=== PATIENT | male | born 1940 | race Caucasian/White ===

== ENCOUNTER 2017-09-21 10:14 | Inpatient (IN) | payer MEDICARE, BC, SELFPAY ==
[2017-09-21] VITALS (13 sets, daily range): BP systolic 107–135; BP diastolic 59–68; PULSE 70–145; RESP 18–22; TEMP 36.3–38.1; O2SAT 91–95; BMI 29.2; BMI 28.5; BMI 28.6
--- NOTE | 2017-09-21 10:28 | ED.VISSUMM ---
- ER Visit Summary Date of Service: 09/21/17 Chief Complaint: Frequency, dysuria with fever and chills History of Present Illness: The patient is a 77 M who presents because of fever document 101.9 with shaking chills this morning. He did take 2 Advil this morning. He has had frequency and dysuria. He now reports hematuria. He had similar presentation in October 2016 and was admitted for 3 days for severe sepsis. He denies headache, visual disturbance, ocular symptoms or auditory symptoms. He denies light sensitivity or stiffness of his neck. He denies any cardiopulmonary symptoms. He denies nausea vomiting diarrhea. He denies any back pain. He denies any skin lesions. Past medical history of hypertension, benign prostatic hypertrophy, and atrial fib. Per old records he was admitted for severe sepsis secondary to UTI October 2016. Physical Examination: Temperature is 97.4. Respiratory 22. He is afebrile presently. HEENT exam is unremarkable. Heart is regular without murmur, gallop or rub. S1 and S2 are normal. Lungs are clear to auscultation with good movement of air bilaterally. Abdomen soft nontender bowel sounds present no. Is no discomfort of the pubic region. No CVA tenderness noted. There is no skin lesions noted. Neuro exam is nonfocal. Test Results: Reveals a sinus rhythm rate of 74 without ectopy. White count is 20.5 thousand with 88 segs no bands. Electro panel is unremarkable. Glucose is elevated 116. Urine is positive for leukoesterase, nitrites and blood. Micro is pending. Lactate is 2.6. Emergency Department Course and Treatment: Since patient had a document temperature 101.9 with Rigors and is tachypnic will obtain urine culture, blood cultures lactate and will treat with Rocephin. Treatment Plan: Since patient meets severe sepsis criteria once the micro urine results are available we will contact hospitalist for admission. Disposition: Admit PCU stepdown Impression: 1. Severe sepsis 2. UTI 3. History of hypertension 4. History of atrial fibrillation 5. History of benign prostatic hypertrophy This note was generated with AnyPresenceation software. It may contain incorrect words, spelling, and punctuation that were not noted in review of the chart prior to signing ED Disposition - Plan for ED Patient: Chief Complaint: Complaint Referrals: Devyn Montalvo [Primary Care Provider] -
[2017-09-21 10:51] LABS: Absolute Lymphocyte Count 0.71 X10^3/ul (0.83-4.51); Basophil# 0.03 X10^3/uL; Basophil% 0.1 % (0-1); Eosinophil# 0.01 X10^3/uL; Hematocrit 45.8 % (40-54); Hemoglobin 15.8 g/dl (13.0-16.5); Lymphocyte # 0.71 X10^3/ul (4.0); Lymphocyte % 3.5 % (19-41); Mean Corp Hgb Conc 34.5 g/gl (32-36); Mean Corpuscular Hgb 32.7 pg (27.0-32.0); Mean Corpuscular Volume 94.8 fL (80-94); Mean Platelet Vol. 12.4 fl (6.2-12.0); Monocyte% 7.8 % (0-10); Neutrophil # 18.04 X10^3/uL (2.7-7.7); Neutrophil % 88.1 % (47-70); Platelet Count 208 K/mm3 (150-450); Red Blood Count 4.83 M/mm3 (4.6-6.2); White Blood Count 20.5 K/mm3 (4.4-11.0)
[2017-09-21 10:56] LABS: POSITIVE DIFFERENTIAL YES
[2017-09-21 10:57] LABS: Differential Indicated SCAN CRITERIA MET; POSITIVE COUNT NO; POSITIVE MORPHOLOGY NO
[2017-09-21 11:02] LABS: Bacteria 0 SEEN /hpf (None Seen); Mucous, Urine 0 SEEN /hpf (<or=2+); Red Blood Cells-Urine 0 SEEN /hpf (0-5); Squamous Epithelial Cells - UA 0 SEEN /hpf (0-5)
[2017-09-21 11:02] LABS: Anion Gap 11 (5-15); BUN 17 mg/dL (7-18); Calcium,Total 8.7 mg/dL (8.5-10.1); Chloride 107 mmol/L (98-107); EST Glomerular Filtration Rate 88 mL/min (>60); Est Glom Filt Rate - Afr Amer 106 mL/min (>60); Estimated Creatinine Clearance 84.76 ml/min; Glucose 116 mg/dL (74-106); Potassium 3.5 mmol/L (3.5-5.1); Sodium Level 141 mmol/L (136-145)
[2017-09-21 11:03] LABS: Color, Urine Yellow (Yellow); Glucose, Dipstick 50 mg/dl (Normal); Ketone-Dipstick 5 mg/dl (Negative); Leukocyte Esterase-Dipstick 500 /ul (Negative); Nitrite-Dipstick Positive (Negative); Occult Blood-Urine 250 /ul (Negative); Protein-Dipstick 100 mg/dl (Negative); Urine Clarity Cloudy (Clear); Urine Urobilinogen 1 mg/dl (Normal)
[2017-09-21 11:10] LABS: Urine Bilirubin Dipstick 1 mg/dL (Negative)
[2017-09-21 11:11] LABS: Lactic Acid 2.6 mmol/L (0.4-2.0)
--- NOTE | 2017-09-21 11:11 | NURSING ---
LACTIC 2.6 AWARE
[2017-09-21 11:13] LABS: Red Cell Morphology NORM C+C NORMAL (NORM C&C)
[2017-09-21 11:14] LABS: White Blood Cells >100 SEEN /hpf (0-5)
--- NOTE | 2017-09-21 12:52 | RAD_ITS ---
STUDY: X-RAY CHEST REASON FOR EXAM: Male, 77 years old. Fever. Urinary tract infection. Sepsis. Dizziness. TECHNIQUE: Single AP upright portable chest view. COMPARISON: Chest 10/22/2016. FINDINGS: Lungs appear well expanded and clear active focal pulmonary consolidation with air bronchograms, large pleural effusion or abnormally dilated pulmonary vascularity. No large gross pneumothorax identified. Minimal opacification left CP angle is seen suggesting minimal atelectasis/scarring but bilateral sharp CP angles are noted. Normal size heart. No change mildly prominent mediastinum and franklyn. Normal visualized pulmonary arteries. Moderate calcified aortic knob seen with mild tortuous descending thoracic aorta. No acute osseous process identified. Moderate left glenohumeral and acromioclavicular degenerative changes noted. There is no demonstrated abnormality of the visualized soft tissue structures of the upper abdomen. No subdiaphragmatic free peritoneal air identified grossly. Numerous EKG wires overlie chest partially scarring underlying details. RAD/Chest 1 View (Portable) IMPRESSION: No active cardiopulmonary disease identified. Mild atelectasis/scarring involving left CP angle as described. Clinical correlation recommended. Electronically Signed: Michael Yeboah, at 14:29 EDT Tel , Service support ,
--- NOTE | 2017-09-21 13:55 | PCM.HP.STD ---
Problem List (1) Severe sepsis Status: Acute (2) Paroxysmal atrial fibrillation Status: Chronic (3) Benign essential HTN Status: Chronic (4) UTI (urinary tract infection) Status: Acute Qualifiers: Urinary tract infection type: acute cystitis Hematuria presence: with hematuria Qualified Code(s): N30.01 - Acute cystitis with hematuria History of Present Illness Date of Admission: 09/21/17 Chief Complaint: Fever and chills. Patient is a 77 years old male, presents with acute onset of fever and chills. He also had some urinary frequency, but denied of any dysuria or abdominal discomfort. He had similar episodes of sepsis associated with UTI three times in the past. Temp was 101.9 at home, took Advil for fever. His heart rate was normal, but had tachypnea. Oxygen saturation was normal. WBC was 20.5, and lactic acid was 2.6. UA was positive for nitrite and leukocyte. Past Medical History Past Medical History (Chronic Problems): Chronic Problems (Last Updated 09/21/17 @ 09:19 by Leeanna Arenas) Atrioventricular block, first degree (Chronic) Hypertension (Chronic) Paroxysmal atrial fibrillation (Chronic) Benign essential HTN (Chronic) BPH (benign prostatic hyperplasia) (Chronic) Allergies No Known Allergies Allergy (Verified 09/21/17 10:16) Home Medications: Ambulatory Orders Medication Instructions Recorded Aspirin E.C. [Ecotrin] 81 mg PO DAILY@0800 04/29/15 Bisoprolol Fumarate/Hctz 1 tab PO DAILY 04/29/15 [Bisoprolol-Hctz 5-6.25 mg Tab] Dutasteride 0.5 mg PO DAILY 09/21/17 Surgical History: - - T+A. Psychiatric History: No pertinent psych hx Smoking Status: Former smoker - *Family History Maternal History Items: Heart Disease - Mother w/ CAD, [place] 65 y/o. Paternal History Items: Cancer - Father w/ colon CA, 70s. Review of Systems Comment: ROS: In general: Fever and chills started this morning. HEENT: Unremarkable. Patient denied of any dizziness, chronic headache, blurred vision, double vision, dry mouth, or nasal congestion. CV/respiratory: There is no exertional shortness of breath, chest pain, palpitation, wheezing, cough, claudication, cold feet, or peripheral edema. GI: Patient denied any abdominal pain, nausea, vomiting, diarrhea, constipation, melena, or hematochezia. : Mild urinary frequency. Neurology: Unremarkable. There is no history of seizure as an adult. Psychological: Unremarkable. ?. Endocrine: Unremarkable. Musculoskeletal: Unremarkable. VTE Information - Inpt Only VTE Present on Admission: No VTE Mechan Device Prophylaxis: SCD's VTE Pharm Prophylaxis ordered?: Yes Subjective: In general, patient is a well-nourished and developed adult. HEENT: Head is atraumatic, and normocephalic. Pupils are equal, round, and reactive to light and accommodations. Neck is supple. There is no lymphadenopathy, or thyromegaly. Oral mucosa is pink, and moist. There are no lesions. Heart: Auscultation is normal with regular rhythm and rate. There is no extra heart sounds, or murmurs. S1 and S2 are present. Point of maximal impulse is not displaced. Lungs: Lungs are clear to auscultation bilaterally. There is no wheezing, or crackles. Abdomen: Abdominal wall is non-tender, and non-distended. There is no palpable mass or organomegaly. Normoactive bowel sounds are present. Extremities: There is no cyanosis or clubbing. Peripheral pulses are palpable. There is no edema. Skin: There are no any skin discoloration or lesions. Neurological: CN II - XII are intact. Sensory and motor functions are grossly normal with no obvious deficit. Cerebellar functions are within normal range. Gait was not tested. - Physical Exam Vital Signs Temp Pulse Resp BP Pulse Ox 98.5 F 94 18 107/61 93 09/21/17 13:04 09/21/17 13:38 09/21/17 13:04 09/21/17 13:05 09/21/17 13:04 Oxygen Delivery Method Room Air Weight: 228 lb 9.91 oz Body Mass Index (BMI) 28.5 Assessment/Plan Patient is a 77 years old male, presents with acute onset of fever and chills. He also had some urinary frequency, but denied of any dysuria or abdominal discomfort. He had similar episodes of sepsis associated with UTI three times in the past. Temp was 101.9 at home, took Advil for fever. His heart rate was normal, but had tachypnea. Oxygen saturation was normal. WBC was 20.5, and lactic acid was 2.6. UA was positive for nitrite and leukocyte. #1 Severe sepsis with underling acute cystitis. He has history of BPH, but s/p TURP. He has been doing well since then with no evidence of urinary retention. IVF D5 0.45NS at 150 ml/hr for fluid resuscitation. Antibiotics ceftriaxone, pending cultures. #2 Paroxysmal atrial fibrillation. Continue current medications. Telemetry monitoring. He is on aspirin only for stroke prophylaxis. #3 Essential hypertension. Continue home medications. #4 History of BPH. Continue dutasteride. VTE prophylaxis: Lovenox SQ. GI prophylaxis: ppi po. Patient is full code. Disposition: Home in 2 to 3 days. Code Visit Inpatient E&M: 02206 Init Hosp L3
[2017-09-21] MEDS: Dext 5%-0.45% NS 1,000 ML 150 ML IV ×2 (14:04→20:19)
--- NOTE | 2017-09-21 14:06 | HP.PCM_ITS ---
Problem List (1) Severe sepsis Status: Acute (2) Paroxysmal atrial fibrillation Status: Chronic (3) Benign essential HTN Status: Chronic (4) UTI (urinary tract infection) Status: Acute Qualifiers: Urinary tract infection type: acute cystitis Hematuria presence: with hematuria Qualified Code(s): N30.01 - Acute cystitis with hematuria History of Present Illness Date of Admission: 09/21/17 Chief Complaint: Fever and chills. Patient is a 77 years old male, presents with acute onset of fever and chills. He also had some urinary frequency, but denied of any dysuria or abdominal discomfort. He had similar episodes of sepsis associated with UTI three times in the past. Temp was 101.9 at home, took Advil for fever. His heart rate was normal, but had tachypnea. Oxygen saturation was normal. WBC was 20.5, and lactic acid was 2.6. UA was positive for nitrite and leukocyte. Past Medical History Past Medical History (Chronic Problems): Chronic Problems (Last Updated 09/21/17 @ 09:19 by Leeanna rAenas) Atrioventricular block, first degree (Chronic) Hypertension (Chronic) Paroxysmal atrial fibrillation (Chronic) Benign essential HTN (Chronic) BPH (benign prostatic hyperplasia) (Chronic) Allergies No Known Allergies Allergy (Verified 09/21/17 10:16) Home Medications: Ambulatory Orders Medication Instructions Recorded Aspirin E.C. [Ecotrin] 81 mg PO DAILY@0800 04/29/15 Bisoprolol Fumarate/Hctz 1 tab PO DAILY 04/29/15 [Bisoprolol-Hctz 5-6.25 mg Tab] Dutasteride 0.5 mg PO DAILY 09/21/17 Surgical History: - - T+A. Psychiatric History: No pertinent psych hx Smoking Status: Former smoker - *Family History Maternal History Items: Heart Disease - Mother w/ CAD, [place] 65 y/o. Paternal History Items: Cancer - Father w/ colon CA, 70s. Review of Systems Comment: ROS: In general: Fever and chills started this morning. HEENT: Unremarkable. Patient denied of any dizziness, chronic headache, blurred vision , double vision, dry mouth, or nasal congestion. CV/respiratory: There is no exertional shortness of breath, chest pain, palpitation, wheezing, cough, claudication, cold feet, or peripheral edema. GI: Patient denied any abdominal pain, nausea, vomiting, diarrhea, constipation, melena, or hematochezia. : Mild urinary frequency. Neurology: Unremarkable. There is no history of seizure as an adult. Psychological: Unremarkable. ?. Endocrine: Unremarkable. Musculoskeletal: Unremarkable. VTE Information - Inpt Only VTE Present on Admission: No VTE Mechan Device Prophylaxis: SCD's VTE Pharm Prophylaxis ordered?: Yes Subjective: In general, patient is a well-nourished and developed adult. HEENT: Head is atraumatic, and normocephalic. Pupils are equal, round, and reactive to light and accommodations. Neck is supple. There is no lymphadenopathy, or thyromegaly. Oral mucosa is pink, and moist. There are no lesions. Heart: Auscultation is normal with regular rhythm and rate. There is no extra heart sounds, or murmurs. S1 and S2 are present. Point of maximal impulse is not displaced. Lungs: Lungs are clear to auscultation bilaterally. There is no wheezing, or crackles. Abdomen: Abdominal wall is non-tender, and non-distended. There is no palpable mass or organomegaly. Normoactive bowel sounds are present. Extremities: There is no cyanosis or clubbing. Peripheral pulses are palpable. There is no edema. Skin: There are no any skin discoloration or lesions. Neurological: CN II - XII are intact. Sensory and motor functions are grossly normal with no obvious deficit. Cerebellar functions are within normal range. Gait was not tested. - Physical Exam Vital Signs Temp Pulse Resp BP Pulse Ox 98.5 F 94 18 107/61 93 09/21/17 13:04 09/21/17 13:38 09/21/17 13:04 09/21/17 13:05 09/21/17 13:04 Oxygen Delivery Method Room Air Weight: 228 lb 9.91 oz Body Mass Index (BMI) 28.5 Assessment/Plan Patient is a 77 years old male, presents with acute onset of fever and chills. He also had some urinary frequency, but denied of any dysuria or abdominal discomfort. He had similar episodes of sepsis associated with UTI three times in the past. Temp was 101.9 at home, took Advil for fever. His heart rate was normal, but had tachypnea. Oxygen saturation was normal. WBC was 20.5, and lactic acid was 2.6. UA was positive for nitrite and leukocyte. #1 Severe sepsis with underling acute cystitis. He has history of BPH, but s/p TURP. He has been doing well since then with no evidence of urinary retention. IVF D5 0.45NS at 150 ml/hr for fluid resuscitation. Antibiotics ceftriaxone, pending cultures. #2 Paroxysmal atrial fibrillation. Continue current medications. Telemetry monitoring. He is on aspirin only for stroke prophylaxis. #3 Essential hypertension. Continue home medications. #4 History of BPH. Continue dutasteride. VTE prophylaxis: Lovenox SQ. GI prophylaxis: ppi po. Patient is full code. Disposition: Home in 2 to 3 days. Code Visit Inpatient E&M: 96481 Init Hosp L3
[2017-09-21 14:41] LABS: Reflex Lactate? Y
[2017-09-21 15:51] LABS: Lactic Acid 3.2 mmol/L (0.4-2.0)
[2017-09-21 17:13] LABS: Magnesium 1.8 mg/dL (1.6-2.6)
[2017-09-21] MEDS: Metoprolol Tartrate 25 MG Tablet PO (22:21)
[2017-09-21] MEDS: Magnesium Sulfate 20 GM/500 ML BAG IV (22:24)
[2017-09-22] VITALS (15 sets, daily range): BP systolic 122–157; BP diastolic 61–84; PULSE 65–102; RESP 12–19; TEMP 36.7–39.3; O2SAT 93–98
[2017-09-22] MEDS: Dext 5%-0.45% NS 1,000 ML 150 ML IV ×4 (03:00→23:28)
[2017-09-22 05:56] LABS: Hematocrit 39.8 % (40-54); Hemoglobin 13.5 g/dl (13.0-16.5); Mean Corp Hgb Conc 33.9 g/gl (32-36); Mean Corpuscular Hgb 32.9 pg (27.0-32.0); Mean Corpuscular Volume 97.1 fL (80-94); Mean Platelet Vol. 12.3 fl (6.2-12.0); Platelet Count 162 K/mm3 (150-450); RBC Distribution Width CV 12.3 % (11.6-14.6); RBC Distribution Width SD 42.3 fl (35.1-43.9); White Blood Count 16.6 K/mm3 (4.4-11.0)
[2017-09-22 06:11] LABS: Scan Indicated on CBC? Y/N NO
[2017-09-22 06:28] LABS: Anion Gap 6 (5-15); BUN 12 mg/dL (7-18); BUN/Creat Ratio 13.5 RATIO (10-20); Calcium,Total 7.6 mg/dL (8.5-10.1); Chloride 106 mmol/L (98-107); Creatinine, Serum 0.89 mg/dL (0.70-1.30); EST Glomerular Filtration Rate 88 mL/min (>60); Est Glom Filt Rate - Afr Amer 107 mL/min (>60); Estimated Creatinine Clearance 85.71 ml/min; Glucose 136 mg/dL (74-106); Magnesium 4.7 mg/dL (1.6-2.6); Potassium 3.7 mmol/L (3.5-5.1); Sodium Level 137 mmol/L (136-145)
--- NOTE | 2017-09-22 08:08 | EKG12_ITS ---
Test Reason : RHYTHMN CHANGE Blood Pressure : / mmHG Vent. Rate : 070 BPM Atrial Rate : 075 BPM P-R Int : 216 ms QRS Dur : 102 ms QT Int : 394 ms P-R-T Axes : 028 -22 029 degrees QTc Int : 425 ms Sinus rhythm with 1st degree A-V block with Premature atrial complexes Otherwise normal ECG When compared with ECG of 25-OCT-2016 12:16, Premature atrial complexes are now Present ME interval has increased Confirmed by WILLY YANEZ, KISHA ([id number]), business editor CLAIRE WILLS ([id number]) on 09/25/2017 1:56:14 PM Referred By: Confirmed By:KISHA AGUILERA MD
[2017-09-22] MEDS: Acetaminophen 325 MG Tablet 650 MG PO ×2 (08:27→16:06)
[2017-09-22] MEDS: Enoxaparin 40 MG/0.4 ML Syringe SC (08:41)
[2017-09-22] MEDS: Finasteride 5 MG Tablet PO (08:41)
[2017-09-22] MEDS: Ceftriaxone 1 GM/50 ML BAG IV (08:41)
[2017-09-22] MEDS: Pantoprazole Sodium 20 MG Tablet PO (08:42)
[2017-09-22] MEDS: Metoprolol Tartrate 25 MG Tablet PO ×2 (08:42→21:28)
[2017-09-22] MEDS: Aspirin E.C. 81 MG Tablet PO (08:42)
--- NOTE | 2017-09-22 10:22 | CASEMGMT ---
LINH CM CHART REVIEW: CLIVE STRATA: 1 ADM DX: Sepsis secondary to UTI INSURANCE: [facility] A/B STATUS: IP [place]: Per physician documentation, Patient is a 77 years old male, presents after [facility], with acute onset of fever and chills. He also had some urinary frequency. He had similar episodes of sepsis associated with UTI three times in the past. Temp was 101.9 at home, took Advil for fever. His heart rate was normal, but had tachypnea. WBC was 20.5, and lactic acid was 2.6. UA was positive for nitrite and leukocyte. PMHX: 1st Degree AV Block, HTN, PAF, HTN, BPH Transition Planning/Care Coordination: Patient is established with Dr. Montalvo for primary care, and has an appnt to establish with Dr. Clay on 09/25/17 at 0900. The patient does not report or demonstrate a recent functional decline, is independent, , and drives. The patient does have prescription coverage and uses [facility] for prescription medication needs. No post-acute home-going needs are identified. Disposition Plan: Home with support of and with follow-up instructions. BJORN PattonN, RN-BC, CCM
--- NOTE | 2017-09-22 12:57 | PCM.PROGNOTE ---
Subjective: Patient is feeling better. He had RVR with a-fib during the night with underling paroxysmal afib. - Physical Exam General: Alert, Oriented x3, Cooperative, Well developed, Well nourished HEENT: Atraumatic, PERRLA, Normocephalic Oral: Moist Mucosa Neck: Supple, No JVD Lungs: Clear to auscultation, Normal air movement, No rhonchi, No wheeze, No rales Cardiovascular: Regular rate, Regular Rhythm, Normal S1, Normal S2, No murmurs, No Ectopic Activity Abdomen: Bowel Sounds Present, Soft, Non Tender, Non-Distended, No Hepato-splenomegaly Extremities: No clubbing, No cyanosis, No edema Skin: No rashes, No breakdown Musculoskeletal: No Tenderness to Palpation of Joints or Extremities Lymphatic: No Cervical, Supraclavicular, or Inguinal Adenopathy Neurological: Cranial nerves II-XII grossly intact, Neuro grossly intact Psych/Mental Status: Normal Affect Vital Signs Temp Pulse Resp BP Pulse Ox 99.0 F 65 16 127/61 H 93 09/22/17 08:35 09/22/17 11:07 09/22/17 08:35 09/22/17 08:35 09/22/17 08:35 Oxygen Delivery Method Room Air Weight: 228 lb 9.91 oz Body Mass Index (BMI) 28.5 Intake and Output for Last 24 Hours 09/20/17 09/21/17 09/22/17 23:59 23:59 23:59 Intake Total 5.4 / 5.4 2285 / 2285 Balance 5.4 / 1954.4 2285 / 2285 Laboratory Tests Past 24 Hrs 09/21/17 09/22/17 09/22/17 14:56 05:26 05:26 WBC 16.6 H RBC 4.10 L Hgb 13.5 Hct 39.8 L MCV 97.1 H MCH 32.9 H MCHC 33.9 RDW 12.3 RDW Differential 42.3 Plt Count 162 MPV 12.3 H Sodium 137 Potassium 3.7 Chloride 106 Carbon Dioxide 25.0 Anion Gap 6 BUN 12 Creatinine 0.89 Estim Creat Clear Calc 85.71 Est GFR (MDRD) Af Amer 107 Est GFR (MDRD) Non-Af 88 BUN/Creatinine Ratio 13.5 Glucose 136 H Lactic Acid 3.2 H Calcium 7.6 L Magnesium 4.7 H Diagnostic Data Chest X-Ray 09/21/17 12:52 IMPRESSION: No active cardiopulmonary disease identified. Mild atelectasis/scarring involving left CP angle as described. Clinical correlation recommended. Electronically Signed: Michael Yeboah, at 14:29 EDT Tel , Service support , Medical Necessity - Tobacco Use Smoking Status: Former smoker Assessment/Plan Patient is a 77 years old male, presents with acute onset of fever and chills. He also had some urinary frequency, but denied of any dysuria or abdominal discomfort. He had similar episodes of sepsis associated with UTI three times in the past. Temp was 101.9 at home, took Advil for fever. His heart rate was normal, but had tachypnea. Oxygen saturation was normal. WBC was 20.5, and lactic acid was 2.6. UA was positive for nitrite and leukocyte. #1 Severe sepsis with underling acute cystitis. He has history of BPH, but s/p TURP. He has been doing well since then with no evidence of urinary retention. IVF D5 0.45NS at 150 ml/hr for fluid resuscitation, discontinue on 09/22. Antibiotics ceftriaxone. Continue. Urine culture E. Coli. Sensitivity pending. #2 Paroxysmal atrial fibrillation. Continue current medications. Telemetry monitoring. He is on aspirin only for stroke prophylaxis. He had A-fib with RVR during the night, converted spontaneously. (09/22). #3 Essential hypertension. Continue home medications. #4 History of BPH. Continue dutasteride. VTE prophylaxis: Lovenox SQ. GI prophylaxis: ppi po. Patient is full code. Disposition: Home, possibly tomorrow. Code Visit Inpatient E&M: 92342 Subs Hosp L3
--- NOTE | 2017-09-22 13:07 | PN_ITS ---
Subjective: Patient is feeling better. He had RVR with a-fib during the night with underling paroxysmal afib. - Physical Exam General: Alert, Oriented x3, Cooperative, Well developed, Well nourished HEENT: Atraumatic, PERRLA, Normocephalic Oral: Moist Mucosa Neck: Supple, No JVD Lungs: Clear to auscultation, Normal air movement, No rhonchi, No wheeze, No rales Cardiovascular: Regular rate, Regular Rhythm, Normal S1, Normal S2, No murmurs, No Ectopic Activity Abdomen: Bowel Sounds Present, Soft, Non Tender, Non-Distended, No Hepato- splenomegaly Extremities: No clubbing, No cyanosis, No edema Skin: No rashes, No breakdown Musculoskeletal: No Tenderness to Palpation of Joints or Extremities Lymphatic: No Cervical, Supraclavicular, or Inguinal Adenopathy Neurological: Cranial nerves II-XII grossly intact, Neuro grossly intact Psych/Mental Status: Normal Affect Vital Signs Temp Pulse Resp BP Pulse Ox 99.0 F 65 16 127/61 H 93 09/22/17 08:35 09/22/17 11:07 09/22/17 08:35 09/22/17 08:35 09/22/17 08:35 Oxygen Delivery Method Room Air Weight: 228 lb 9.91 oz Body Mass Index (BMI) 28.5 Intake and Output for Last 24 Hours 09/20/17 09/21/17 09/22/17 23:59 23:59 23:59 Intake Total 5.4 / 5.4 2285 / 2285 Balance 5.4 / 1954.4 2285 / 2285 Laboratory Tests Past 24 Hrs 09/21/17 09/22/17 09/22/17 14:56 05:26 05:26 WBC 16.6 H RBC 4.10 L Hgb 13.5 Hct 39.8 L MCV 97.1 H MCH 32.9 H MCHC 33.9 RDW 12.3 RDW Differential 42.3 Plt Count 162 MPV 12.3 H Sodium 137 Potassium 3.7 Chloride 106 Carbon Dioxide 25.0 Anion Gap 6 BUN 12 Creatinine 0.89 Estim Creat Clear Calc 85.71 Est GFR (MDRD) Af Amer 107 Est GFR (MDRD) Non-Af 88 BUN/Creatinine Ratio 13.5 Glucose 136 H Lactic Acid 3.2 H Calcium 7.6 L Magnesium 4.7 H Diagnostic Data Chest X-Ray 09/21/17 12:52 IMPRESSION: No active cardiopulmonary disease identified. Mild atelectasis/scarring involving left CP angle as described. Clinical correlation recommended. Electronically Signed: Michael Yeboah, at 14:29 EDT Tel , Service support , Medical Necessity - Tobacco Use Smoking Status: Former smoker Assessment/Plan Patient is a 77 years old male, presents with acute onset of fever and chills. He also had some urinary frequency, but denied of any dysuria or abdominal discomfort. He had similar episodes of sepsis associated with UTI three times in the past. Temp was 101.9 at home, took Advil for fever. His heart rate was normal, but had tachypnea. Oxygen saturation was normal. WBC was 20.5, and lactic acid was 2.6. UA was positive for nitrite and leukocyte. #1 Severe sepsis with underling acute cystitis. He has history of BPH, but s/p TURP. He has been doing well since then with no evidence of urinary retention. IVF D5 0.45NS at 150 ml/hr for fluid resuscitation, discontinue on 09/22. Antibiotics ceftriaxone. Continue. Urine culture E. Coli. Sensitivity pending. #2 Paroxysmal atrial fibrillation. Continue current medications. Telemetry monitoring. He is on aspirin only for stroke prophylaxis. He had A-fib with RVR during the night, converted spontaneously. (09/22). #3 Essential hypertension. Continue home medications. #4 History of BPH. Continue dutasteride. VTE prophylaxis: Lovenox SQ. GI prophylaxis: ppi po. Patient is full code. Disposition: Home, possibly tomorrow. Code Visit Inpatient E&M: 85419 Subs Hosp L3
[2017-09-22 14:12] LABS: Pathologist Review Reviewed
[2017-09-22 17:17] LABS: Lactic Acid 1.5 mmol/L (0.4-2.0)
[2017-09-22] MEDS: Ibuprofen 600 MG Tablet PO (17:57)
[2017-09-23] VITALS (7 sets, daily range): BP systolic 139–144; BP diastolic 78–92; PULSE 77–98; RESP 18; TEMP 37.2–37.3; O2SAT 94–98
[2017-09-23] MEDS: Dext 5%-0.45% NS 1,000 ML 150 ML IV (05:42)
[2017-09-23 06:09] LABS: Hematocrit 42.4 % (40-54); Hemoglobin 14.1 g/dl (13.0-16.5); Mean Corp Hgb Conc 33.3 g/gl (32-36); Mean Corpuscular Hgb 32.6 pg (27.0-32.0); Mean Corpuscular Volume 97.9 fL (80-94); Mean Platelet Vol. 12.8 fl (6.2-12.0); Platelet Count 147 K/mm3 (150-450); RBC Distribution Width CV 12.7 % (11.6-14.6); RBC Distribution Width SD 44.8 fl (35.1-43.9); Red Blood Count 4.33 M/mm3 (4.6-6.2); Scan Indicated on CBC? Y/N NO; White Blood Count 5.4 K/mm3 (4.4-11.0)
[2017-09-23 06:25] LABS: BUN 8 mg/dL (7-18); EST Glomerular Filtration Rate 100 mL/min (>60); Estimated Creatinine Clearance 95.36 ml/min; Glucose 120 mg/dL (74-106)
[2017-09-23 06:26] LABS: Anion Gap 9 (5-15); Calcium,Total 7.7 mg/dL (8.5-10.1); Chloride 109 mmol/L (98-107); Est Glom Filt Rate - Afr Amer 121 mL/min (>60); Potassium 3.9 mmol/L (3.5-5.1); Sodium Level 141 mmol/L (136-145)
--- NOTE | 2017-09-23 07:18 | EKG12_ITS ---
Test Reason : A-FIB Blood Pressure : / mmHG Vent. Rate : 083 BPM Atrial Rate : 086 BPM P-R Int : 000 ms QRS Dur : 102 ms QT Int : 374 ms P-R-T Axes : 000 -24 014 degrees QTc Int : 439 ms Atrial fibrillation Abnormal ECG When compared with ECG of 22-SEP-2017 04:09, MANUAL COMPARISON REQUIRED, DATA IS UNCONFIRMED Confirmed by WILLY YANEZ, KISHA ([id number]), scientific editor CLAIRE WILLS ([id number]) on 09/26/2017 1:38:55 PM Referred By: HOANG Confirmed By:KISHA AGUILERA MD
[2017-09-23] MEDS: Aspirin E.C. 81 MG Tablet PO (09:02)
[2017-09-23] MEDS: Ceftriaxone 1 GM/50 ML BAG IV (09:02)
[2017-09-23] MEDS: Pantoprazole Sodium 20 MG Tablet PO (09:02)
[2017-09-23] MEDS: Metoprolol Tartrate 25 MG Tablet PO (09:02)
[2017-09-23] MEDS: Enoxaparin 40 MG/0.4 ML Syringe SC (09:02)
[2017-09-23] MEDS: Finasteride 5 MG Tablet PO (09:03)
--- NOTE | 2017-09-23 10:55 | PCM.DC ---
You will use the following diet at home:: Cardiac Your food should be the consistency of: Regular Discharge Activity: Return to Normal Activity Weight Bearing Status: Weight bearing as tolerated Call your doctor if you observe: Fever of 101 or Higher, Shortness of breath, Dizziness, Fainting spells, Chest pain, Increased palpitations (irregular heartbeat), Uncontrolled pain Allergies/Adverse Reactions: Allergies No Known Allergies Allergy (Verified 09/21/17 10:16) Medications to take at Discharge Aspirin E.C. [Ecotrin] 81 mg PO DAILY@0800 04/29/15 Bisoprolol Fumarate/Hctz [Bisoprolol-Hctz 5-6.25 mg Tab] 1 tab PO DAILY 04/29/15 Dutasteride 0.5 mg PO DAILY 09/21/17 Levofloxacin [Levaquin] 750 mg PO DAILY #5 tab 09/23/17 The following prescriptions were given: Levofloxacin [Levaquin] 750 mg PO DAILY #5 tab Primary Care Physician: Devyn Montalvo [Primary Care Provider] - Please follow up with your Primary Care Physician in: 1 WEEK.
--- NOTE | 2017-09-23 14:35 | PCM.DC.SUM ---
Discharge Date and Diagnosis Date of Admission: 09/21/17 Date of Discharge: 09/23/17 - Primary Discharge Diagnosis #1 E. coli acute cystitis. #2 severe sepsis. - Secondary Discharge Diagnosis Chronic Problems (Last Updated 09/21/17 @ 09:19 by Leeanna Arenas) Atrioventricular block, first degree (Chronic) Hypertension (Chronic) Paroxysmal atrial fibrillation (Chronic) Benign essential HTN (Chronic) BPH (benign prostatic hyperplasia) (Chronic) Hospital Course and Treatment Imaging Results: Clinical Impression(s) from Imaging Studies Chest X-Ray 09/21/17 12:52 IMPRESSION: No active cardiopulmonary disease identified. Mild atelectasis/scarring involving left CP angle as described. Clinical correlation recommended. Electronically Signed: Michael Yeboah, at 14:29 EDT Tel , Service support , Operations: None Procedures: None Summary of Care Provided: Patient seen and examined on the day of discharge and appeared to be stable to be discharged home. He denies any complaints today, asymptomatic. Vital signs are stable. - Physical Exam General: Alert, Oriented x3, Cooperative, No apparent distress. HEENT: Atraumatic, PERRLA, EOMI. Neck: Supple, No JVD, Negative Carotid Bruits, Trachea Midline, Thyroid Normal. Lungs: Clear to auscultation, Normal air movement, No rhonchi, No wheeze, No rales. Cardiovascular: Regular rate, Regular Rhythm, Normal S1, Normal S2, PMI Normal. Abdomen: Bowel Sounds Present, Soft, Non Tender, Non-Distended, No Hepato-splenomegaly. Extremities: No clubbing, No cyanosis, No edema Skin: No rashes, No breakdown Neurological: Neuro grossly intact Vital Signs are stable. Hospital course: The patient is a 77 year old M admitted because of fever and chills and he was found to have severe sepsis which is attributed to E. coli acute cystitis. He was treated with IV fluids and IV antibiotics. His lactic acid was elevated and with IV fluid therapy as well as IV antibiotics, lactic acid came back down to normal. His total white cell count was highly elevated on admission at 20,000 and came down to 5400 upon discharge. Blood culture revealed no growth in 48 hours. Urine culture revealed E. coli. With above-mentioned treatment, patient remained afebrile for almost 24 hours and today he has no symptoms. Patient discharged home in a stable medical condition, discharged on Levaquin 750 mg p.o. daily for 5 days to complete total of 7 days of treatment, continued on his chronic home medication without any changes, recommended follow-up with PCP in 1 week. Discharge Activity: Return to Normal Activity Weight Bearing Status: Weight bearing as tolerated Call your doctor if you observe: Fever of 101 or Higher, Shortness of breath, Dizziness, Fainting spells, Chest pain, Increased palpitations (irregular heartbeat), Uncontrolled pain Home Medications: Medications to take at Discharge Aspirin E.C. [Ecotrin] 81 mg PO DAILY@0800 04/29/15 Bisoprolol Fumarate/Hctz [Bisoprolol-Hctz 5-6.25 mg Tab] 1 tab PO DAILY 04/29/15 Dutasteride 0.5 mg PO DAILY 09/21/17 Levofloxacin [Levaquin] 750 mg PO DAILY #5 tab 09/23/17 Following Prescrptions Were Given to Patient: Levofloxacin [Levaquin] 750 mg PO DAILY #5 tab Primary Care Physician: Devyn Jenkins [Primary Care Provider] - Please follow up with your Primary Care Physician in: 1 WEEK. Please Follow Up With: DEVYN JENKINS When: 1 week Disposition: Home Minutes spent on discharge:: 26 Patient Condition:: Stable Medical Necessity - Tobacco Use Smoking Status: Former smoker Meaningful Use Info Meaningful Use Diagnoses (Choose all that apply): None applicable Code Visit Inpatient E&M: 03936 Disch Hosp
--- NOTE | 2017-09-23 14:39 | DS.PCM_ITS ---
Discharge Date and Diagnosis Date of Admission: 09/21/17 Date of Discharge: 09/23/17 - Primary Discharge Diagnosis #1 E. coli acute cystitis. #2 severe sepsis. - Secondary Discharge Diagnosis Chronic Problems (Last Updated 09/21/17 @ 09:19 by Leeanna Arenas) Atrioventricular block, first degree (Chronic) Hypertension (Chronic) Paroxysmal atrial fibrillation (Chronic) Benign essential HTN (Chronic) BPH (benign prostatic hyperplasia) (Chronic) Hospital Course and Treatment Imaging Results: Clinical Impression(s) from Imaging Studies Chest X-Ray 09/21/17 12:52 IMPRESSION: No active cardiopulmonary disease identified. Mild atelectasis/scarring involving left CP angle as described. Clinical correlation recommended. Electronically Signed: Michael Yeboah, at 14:29 EDT Tel , Service support , Operations: None Procedures: None Summary of Care Provided: Patient seen and examined on the day of discharge and appeared to be stable to be discharged home. He denies any complaints today, asymptomatic. Vital signs are stable. - Physical Exam General: Alert, Oriented x3, Cooperative, No apparent distress. HEENT: Atraumatic, PERRLA, EOMI. Neck: Supple, No JVD, Negative Carotid Bruits, Trachea Midline, Thyroid Normal. Lungs: Clear to auscultation, Normal air movement, No rhonchi, No wheeze, No rales. Cardiovascular: Regular rate, Regular Rhythm, Normal S1, Normal S2, PMI Normal. Abdomen: Bowel Sounds Present, Soft, Non Tender, Non-Distended, No Hepato- splenomegaly. Extremities: No clubbing, No cyanosis, No edema Skin: No rashes, No breakdown Neurological: Neuro grossly intact Vital Signs are stable. Hospital course: The patient is a 77 year old M admitted because of fever and chills and he was found to have severe sepsis which is attributed to E. coli acute cystitis. He was treated with IV fluids and IV antibiotics. His lactic acid was elevated and with IV fluid therapy as well as IV antibiotics, lactic acid came back down to normal. His total white cell count was highly elevated on admission at 20, 000 and came down to 5400 upon discharge. Blood culture revealed no growth in 48 hours. Urine culture revealed E. coli. With above-mentioned treatment, patient remained afebrile for almost 24 hours and today he has no symptoms. Patient discharged home in a stable medical condition, discharged on Levaquin 750 mg p.o. daily for 5 days to complete total of 7 days of treatment, continued on his chronic home medication without any changes, recommended follow -up with PCP in 1 week. Discharge Activity: Return to Normal Activity Weight Bearing Status: Weight bearing as tolerated Call your doctor if you observe: Fever of 101 or Higher, Shortness of breath, Dizziness, Fainting spells, Chest pain, Increased palpitations (irregular heartbeat), Uncontrolled pain Home Medications: Medications to take at Discharge Aspirin E.C. [Ecotrin] 81 mg PO DAILY@0800 04/29/15 Bisoprolol Fumarate/Hctz [Bisoprolol-Hctz 5-6.25 mg Tab] 1 tab PO DAILY Dutasteride 0.5 mg PO DAILY 09/21/17 Levofloxacin [Levaquin] 750 mg PO DAILY #5 tab 09/23/17 Following Prescrptions Were Given to Patient: Levofloxacin [Levaquin] 750 mg PO DAILY #5 tab Primary Care Physician: Devyn Jenkins [Primary Care Provider] - Please follow up with your Primary Care Physician in: 1 WEEK. Please Follow Up With: DEVYN JENKINS When: 1 week Disposition: Home Minutes spent on discharge:: 26 Patient Condition:: Stable Medical Necessity - Tobacco Use Smoking Status: Former smoker Meaningful Use Info Meaningful Use Diagnoses (Choose all that apply): None applicable Code Visit Inpatient E&M: 87647 Disch Hosp
== END 2017-09-23 12:15 | disposition other institution (70) | DRG 872 ==
LOC: ED 10:57 → PCU 12:09
PROVIDERS: Admitting Provider Hospitalist; Emergency Provider Emergency Medicine; Family Provider Family Medicine; PCP Family Medicine; Visit Provider Hospitalist
DX: A41.9 Sepsis, unspecified organism (principal); I48.0 Paroxysmal atrial fibrillation; N30.01 Acute cystitis with hematuria; B96.20 Unspecified Escherichia coli [E. coli] as the cause of diseases classified elsewhere; R65.20 Severe sepsis without septic shock; I10 Essential (primary) hypertension; N40.0 Benign prostatic hyperplasia without lower urinary tract symptoms; I44.0 Atrioventricular block, first degree; Z79.899 Other long term (current) drug therapy; Z79.82 Long term (current) use of aspirin; Z87.891 Personal history of nicotine dependence
CPT/HCPCS: 36415; 71045; 80048; 81001; 83605; 83735; 85025; 85027; 87040; 87086; 87088; 87186; 93005; 94762; 99284; J7040; J7050; A4216; J7799

== ENCOUNTER → 2017-10-12 19:24 | Outpatient (CLI) | payer MEDICARE, BC, SELFPAY | PROVIDERS: Visit Provider Urology | DX: N40.1 Benign prostatic hyperplasia with lower urinary tract symptoms (principal) | CPT/HCPCS: 87086 ==

== ENCOUNTER → 2018-03-09 08:41 | Outpatient (CLI) | payer MEDICARE, BC, SELFPAY ==
--- NOTE | 2018-03-09 08:45 | EKG12_ITS ---
Test Reason : ARRHYTMIA Blood Pressure : / mmHG Vent. Rate : 071 BPM Atrial Rate : 071 BPM P-R Int : 188 ms QRS Dur : 102 ms QT Int : 404 ms P-R-T Axes : -07 -27 027 degrees QTc Int : 439 ms Sinus rhythm with Premature atrial complexes Otherwise normal ECG When compared with ECG of 23-SEP-2017 07:43, Sinus rhythm has replaced Atrial fibrillation Confirmed by WILLY YANEZ, KISHA ([id number]), editorial intern CLAIRE WILLS ([id number]) on 03/12/2018 3:53:42 PM Referred By: Devyn Montalvo Confirmed By:KISHA AGUILERA MD
== END ==
PROVIDERS: Family Provider Family Medicine; PCP Family Medicine; Visit Provider Family Medicine
DX: Z86.79 Personal history of other diseases of the circulatory system (principal)
CPT/HCPCS: 93005

== ENCOUNTER → 2018-10-08 10:42 | Outpatient (CLI) | payer MEDICARE, BC, SELFPAY ==
[2018-09-25 08:59] VITALS: BMI 29.7
--- NOTE | 2018-10-08 10:44 | ECHOD_ITS ---
Reason For Study: A. fib Procedure This was a 2D Doppler, Color Flow transthoracic echocardiogram. Exam performed in department. Left Ventricle Normal LV size. Left ventricular systolic function is normal. The estimated ejection fraction is 60 %. Stage 1 diastolic dysfunction. No regional wall motion abnormalities noted. Right Ventricle Normal RV size. Normal systolic function. Atria Normal left atrium. Normal right atrium. Mitral Valve Normal mitral valve. Tricuspid Valve Normal tricuspid valve. Aortic Valve Normal aortic valve. Mild (1+) aortic valve insufficiency. Pulmonic Valve Normal pulmonic valve. Great Vessels Mildly dilated aortic root. The pulmonary artery is normal size. Normal inferior vena cava. Pericardium/Pleural No pericardial effusion. MMode/2D Measurements & Calculations RVDd: 2.9 cm Ao root diam: 4.1 cm LAV(MOD-bp): 60.4 ml LA dimension: 5.2 cm LAV(MOD-bp) Indexed: 26.0 ml/m2 LAV(MOD-sp2): 71.2 ml LAV(MOD-sp4): 49.9 ml LA A4 area: 18.6 cm2 RA A4 area: 18.2 cm2 Doppler Measurements & Calculations MV E max carter: 48.4 cm/sec Lat Peak E' Carter: 8.5 cm/sec Med Peak E' Carter: 4.1 cm/sec MV A max carter: 110.9 cm/sec E/E' lat: 5.7 E/E' med: 11.9 MV E/A: 0.44 Ao V2 max: 140.9 cm/sec AI max carter: 379.6 cm/sec LV V1 max: 109.9 cm/sec Ao max P.9 mmHg AI max P.9 mmHg LV V1 max P.8 mmHg AI dec slope: 246.3 cm/sec2 AI P1/2t: 451.4 msec PA V2 max: 85.5 cm/sec TR max carter: 225.6 cm/sec TR max P.4 mmHg Interpretation Summary Normal LV size. Left ventricular systolic function is normal. The estimated ejection fraction is 60 %. Stage 1 diastolic dysfunction. Compared to previous study, the left ventricular systolic function is the same.. Structurally normal valves. Ordering Physician: Jalen Clay Referring Physician: Devyn Montalvo Performed By: Rivka Sykes RDCS
== END ==
PROVIDERS: Family Provider Family Medicine; PCP Family Medicine; Referring Provider Internal Medicine Cardiovascular Disease; Visit Provider Internal Medicine Cardiovascular Disease
DX: I48.0 Paroxysmal atrial fibrillation (principal)
CPT/HCPCS: 93306

== ENCOUNTER → 2018-11-12 11:14 | Outpatient (CLI) | payer MEDICARE, BC, SELFPAY ==
[2018-09-25 08:59] VITALS: BMI 29.7
== END ==
PROVIDERS: Family Provider Family Medicine; PCP Family Medicine; Referring Provider Urology; Visit Provider Urology
DX: N39.0 Urinary tract infection, site not specified (principal)
CPT/HCPCS: 87077; 87086; 87088; 87186

== ENCOUNTER → 2019-02-01 15:01 | Outpatient (CLI) | payer MEDICARE, BC, SELFPAY ==
[2019-02-01 11:35] VITALS: BMI 29.7
[2019-02-01 15:50] LABS: Bacteria 0 SEEN /hpf (None Seen); Mucous, Urine 0 SEEN /hpf (<or=2+); Squamous Epithelial Cells - UA 0 SEEN /hpf (0-5)
[2019-02-01 16:00] LABS: Color, Urine Yellow (Yellow); Glucose, Dipstick 250 mg/dl (Normal); Ketone-Dipstick 5 mg/dl (Negative); Leukocyte Esterase-Dipstick 25 /ul (Negative); Nitrite-Dipstick Negative (Negative); Occult Blood-Urine 250 /ul (Negative); Protein-Dipstick 30 mg/dl (Negative); Specific Gravity, Urine 1.025 (1.002-1.030); Urine Bilirubin Dipstick Negative (Negative); Urine Urobilinogen 4 mg/dl (Normal)
[2019-02-01 16:09] LABS: Urine Clarity Sl Cldy (Clear)
[2019-02-01 16:53] LABS: Red Blood Cells-Urine 5-10 SEEN /hpf (0-5); White Blood Cells 0-5 SEEN /hpf (0-5)
[2019-02-01 17:06] LABS: Absolute Lymphocyte Count 1.67 X10^3/uL (0.83-4.51); Absolute Neutrophil Count 4.9 X10^3/uL (2.0-7.7); Basophil# 0.02 X10^3/uL; Basophil% 0.3 % (0-1); Eosinophil# 0.13 X10^3/uL; Eosinophils% 1.7 % (0-5); Hematocrit 48.5 % (40-54); Hemoglobin 15.8 g/dL (13.0-16.5); Lymphocyte # 1.67 X10^3/ul (4.0); Lymphocyte % 22.1 % (19-41); Mean Corp Hgb Conc 32.6 g/dL (32-36); Mean Corpuscular Hgb 32.4 pg (27.0-32.0); Mean Corpuscular Volume 99.4 fL (80-94); Mean Platelet Vol. 12.4 fl (6.2-12.0); Monocyte# 0.79 X10^3/uL; Monocyte% 10.5 % (0-10); NRBC Flagged by Analyzer 0 % (0-5); Neutrophil # 4.89 X10^3/uL (2.7-7.7); Neutrophil % 64.9 % (47-70); Platelet Count 192 K/mm3 (150-450); RBC Distribution Width CV 12.6 % (11.6-14.6); RBC Distribution Width SD 46.5 fl (35.1-43.9); Red Blood Count 4.88 M/mm3 (4.6-6.2); White Blood Count 7.5 K/mm3 (4.4-11.0)
[2019-02-01 17:48] LABS: Anion Gap 4 (5-15); BUN 15 mg/dL (7-18); BUN/Creat Ratio 14.7 RATIO (10-20); Calcium,Total 8.9 mg/dL (8.5-10.1); Chloride 108 mmol/L (98-107); Creatinine, Serum 1.02 mg/dL (0.70-1.30); EST Glomerular Filtration Rate 75 mL/min (>60); Est Glom Filt Rate - Afr Amer 91 mL/min (>60); Glucose 137 mg/dL (74-106); Magnesium 2.2 mg/dL (1.6-2.6); Potassium 4.5 mmol/L (3.5-5.1); Sodium Level 140 mmol/L (136-145); T4 Free Direct 1.14 ng/dL (0.76-1.46); Thyroid Stim Hormone (TSH) 0.97 uIU/mL (0.358-3.74)
[2019-02-01 18:48] LABS: BNP,B-Type NATRIURETIC PEPTIDE 67.8 pg/mL (0-100)
== END ==
LOC: LABSPEC 15:04 → LAB 16:34
PROVIDERS: Physician Assistant Surgical; Family Provider Family Medicine; PCP Family Medicine; Referring Provider Nurse Practitioner Family; Visit Provider Nurse Practitioner Family
DX: I48.0 Paroxysmal atrial fibrillation (principal); R53.83 Other fatigue; R06.09 Other forms of dyspnea
CPT/HCPCS: 36415; 80048; 81001; 83735; 83880; 84439; 84443; 85025; 87086

== ENCOUNTER 2019-02-08 14:35 | Emergency (ER) | payer MEDICARE, BC, SELFPAY ==
[2019-02-08 14:35] VITALS: BMI 29.5
[2019-02-08 14:36] VITALS: BP 200/94; PULSE 79; RESP 16; TEMP 36.2; O2SAT 97; BMI 28.7
--- NOTE | 2019-02-08 15:14 | VDLE_ITS ---
Reason For Study: Swelling RIGHT GSV is normal. CFV is compressible, spontaneous, phasic, competent and demonstrates normal augmentation. FV is compressible, spontaneous, phasic, competent and demonstrates normal augmentation. POP V is compressible, spontaneous, phasic, competent and demonstrates normal augmentation. T/P Trunk is compressible. PTV is compressible. RT PerV is compressible. Procedure Exam performed portable in ED. A preliminary report was called and/or faxed to [facility]. Interpretation Summary There is no evidence of right lower extremity deep vein thrombosis. Right great saphenous vein appears patent and compressible segmentally. Ordering Physician: Roshni Ulrich Referring Physician: Devyn Montalvo Performed By: Padmini Cheema RVT
--- NOTE | 2019-02-08 15:22 | ED.VIS.GEN ---
History of Present Illness Chief Complaint: Lower Extremity Injury Detail of Chief Complaint: Right leg swelling Onset: Weeks Current Severity: Mild Maximum Severity: Moderate Narrative: Patient reports going to a baseball game just over a week ago and getting a sunburn on his right lower extremity. He went to see his cardiology office last week for a routine EKG. They had commented at that time that his right leg seems swollen and red. Patient does have a history of paroxysmal A. fib and is currently on Eliquis. Patient states the leg has slightly improved over the past week, but due to continued swelling his doctor felt he should come in to be checked for a blood clot. Patient denies pain to the area. Past Medical History - Allergies and Home Meds Allergies/Adverse Reactions: Allergies No Known Allergies Allergy (Verified 02/08/19 14:35) Primary Care Physician: Devyn Montalvo [Primary Care Provider] - Past Medical History: - - Reviewed Surgical History: - - T+A. Lives: Spouse/ Significant Other Smoking Status: Former smoker - Family History Maternal Family History: Family History (Last Reviewed 02/01/19 @ 11:35 by Yara Friedman) Mother Myocardial infarction Father Colon cancer Family History: Reports: Heart Disease - Mother w/ CAD, [place] 65 y/o. Paternal Family History: Family History (Last Reviewed 02/01/19 @ 11:35 by Yara Friedman) Mother Myocardial infarction Father Colon cancer Family History: Reports: Cancer - Father w/ colon CA, 70s. Review of Systems General: Denies: Chills, Fever Eyes: Denies: Visual changes - bilaterally ENT: Denies: Bilateral ear pain Cardiovascular: Denies: Chest pain Respiratory: Denies: Dyspnea Gastrointestinal: Denies: Abdominal pain Musculoskeletal: Denies: Neck pain, Back pain, Extremity Pain Neurological: Denies: Parasthesia Hematologic: Denies: Easy bruising, Easy bleeding Allergy: Denies: Uticaria Physical Exam Vital Signs/Narrative: Vital Signs Temp Pulse Resp BP Pulse Ox 02/08/19 14:36 97.2 F L 79 16 200/94 H 97 Inital Vital Signs reviewed: Yes General: Well nourished, Well developed Eyes: Perrl ENT: Moist mucous membranes Neck: Supple Cardiovascular: Regular rate, Regular rhythm Respiratory: No distress, CTA bilaterally Abdomen: Soft, Nontender Extremities: - - Right lower extremity 3+ pitting edema. Minimal erythema. No sign of cellulitis. No open wounds. No focal tenderness with palpation. Strong distal pulses are noted. Neurological: Alert, Oriented x3 Psychological: Normal affect Diagnostic/Tx/Re-eval - Medical Decision Making Venous ultrasound of the right lower extremity was obtained and reveals no evidence of DVT. Test results discussed with the patient and at bedside. Edgardo wrap was placed for light compression. He was instructed on proper leg elevation. Repeat blood pressure is 155/91. ED Disposition - Plan for ED Patient: Disposition: Home or Assisted Living Diagnosis: Edema of right lower extremity Instructions: ED Peripheral Edema, Unilateral Referrals: Devyn Montalvo [Primary Care Provider] - 1 Week
[2019-02-08 16:03] VITALS: BP 155/91
== END 2019-02-08 16:03 | disposition home or self-care (01) ==
PROVIDERS: Emergency Provider Emergency Medicine; Family Provider Family Medicine; PCP Family Medicine
DX: R60.0 Localized edema (principal); I48.0 Paroxysmal atrial fibrillation; Z79.01 Long term (current) use of anticoagulants; Z79.899 Other long term (current) drug therapy; Z87.891 Personal history of nicotine dependence
CPT/HCPCS: 93971; 99282

== ENCOUNTER → 2019-02-20 08:12 | Outpatient (CLI) | payer MEDICARE, BC, SELFPAY ==
[2019-02-08 14:36] VITALS: BMI 28.7
[2019-02-20 09:11] LABS: Glucose 118 mg/dL (74-106)
[2019-02-20 09:14] LABS: Hemoglobin A1c 5.9 % (4.2-6.3)
== END ==
PROVIDERS: Family Provider Family Medicine; PCP Family Medicine; Referring Provider Family Medicine; Visit Provider Family Medicine
DX: R73.9 Hyperglycemia, unspecified (principal); I48.91 Unspecified atrial fibrillation
CPT/HCPCS: 36415; 80299; 82947; 83036

== ENCOUNTER → 2019-04-12 17:26 | Outpatient (CLI) | payer MEDICARE, BC, SELFPAY ==
[2019-04-12 13:16] VITALS: BMI 28.7
== END ==
PROVIDERS: Family Provider Family Medicine; PCP Family Medicine; Visit Provider Physician Assistant Surgical
DX: T14.8XXA Other injury of unspecified body region, initial encounter (principal); X58.XXXA Exposure to other specified factors, initial encounter; Y93.9 Activity, unspecified; Y92.9 Unspecified place or not applicable; Y99.9 Unspecified external cause status
CPT/HCPCS: 87070; 87077; 87186; 87205

== ENCOUNTER 2019-04-13 19:28 | Emergency (ER) | payer MEDICARE, BC, SELFPAY ==
[2019-04-12 13:16] VITALS: BMI 28.7
[2019-04-13 19:28] VITALS: BP 153/101; PULSE 77; RESP 15; TEMP 36.4; O2SAT 98; BMI 29.2
--- NOTE | 2019-04-13 19:45 | RAD_ITS ---
STUDY: X-RAY - LEFT RADIUS AND ULNA REASON FOR EXAM: Male, 79 years old. Left arm swelling TECHNIQUE: 2 view(s) of the forearm. COMPARISON: None. FINDINGS: Significant radial soft tissue swelling Normal visualized radius. Normal visualized ulna. RAD/Forearm 2 Views IMPRESSION: No acute osseous findings. Radial soft tissue swelling Electronically Signed: Harpreet Osorio DO at 20:45 EDT Tel , Service support ,
--- NOTE | 2019-04-13 19:47 | RAD_ITS ---
STUDY: X-RAY - LEFT HAND REASON FOR EXAM: Male, 79 years old. Hand pain and swelling TECHNIQUE: 3 view(s) of the hand. COMPARISON: None. FINDINGS: Age-related degenerative changes. No acute fracture or dislocation. Normal mineralization. No significant soft tissue swelling RAD/Hand Min 3 Views IMPRESSION: As above Electronically Signed: Harpreet Osorio DO at 20:44 EDT Tel , Service support ,
--- NOTE | 2019-04-13 19:48 | ED.DCSUM_ITS ---
History of Present Illness Chief Complaint: Fall Informant: Patient Onset: Today Current Severity: Mild Maximum Severity: Mild Narrative: Patient presents after a fall approximately 6 hours prior to arrival. He was on the bottom rung of a small stepladder when he lost his balance and fell, landing on his left side. He was in the garage. He denies striking his head or loss of consciousness. He landed on his left arm. He has a large hematoma noted to the posterior medial left forearm. He has small ecchymosis on his hand. There is a skin tear over the left wrist. He has full range of motion of his extremity w ithout difficulty. He reports very minimal pain. Past Medical History - Allergies and Home Meds Allergies/Adverse Reactions: Allergies No Known Allergies Allergy (Verified 04/13/19 19:31) Primary Care Physician: Devyn Montalvo [Primary Care Provider] - Prior records reviewed: Yes Past Medical History: - - Reviewed Surgical History: - - T+A. Lives: Spouse/ Significant Other Smoking Status: Former smoker - Family History Maternal Family History: Family History (Last Reviewed 04/12/19 @ 13:16 by Yara Friedman) Mother Myocardial infarction Father Colon cancer Family History: Reports: Heart Disease - Mother w/ CAD, [place] 65 y/o. Paternal Family History: Family History (Last Reviewed 04/12/19 @ 13:16 by Yara Friedman) Mother Myocardial infarction Father Colon cancer Family History: Reports: Cancer - Father w/ colon CA, 70s. Review of Systems General: Denies: Chills, Fever Eyes: Denies: Visual changes - bilaterally ENT: Denies: Bilateral ear pain Cardiovascular: Denies: Chest pain Respiratory: Denies: Dyspnea, Paroxysmal nocturnal dyspnea Musculoskeletal: Reports: Arthralgias, Extremity Pain. Denies: Neck pain, Back pain Skin: Reports: Abrasions, Wounds Neurological: Denies: Headache, Weakness, Parasthesia, Numbness Endocrine: Denies: Polyuria Hematologic: Reports: Easy bruising - On Eliquis Allergy: Denies: Uticaria Physical Exam Vital Signs/Narrative: Vital Signs Temp Pulse Resp BP Pulse Ox 04/13/19 19:28 97.6 F L 77 15 153/101 H 98 Inital Vital Signs reviewed: Yes General: Well nourished, Well developed Head: Normocephalic ENT: Moist mucous membranes Neck: Supple Cardiovascular: Regular rate, Regular rhythm Respiratory: No distress, CTA bilaterally Abdomen: Soft, Nontender Extremities: - - Large hematoma noted to the posterior medial left forearm. Volar left forearm is soft with no sign of compartment syndrome. He has full range of motion of all joints. There is ecchymosis noted over the palmar acid of the hand covering the fourth and fifth metacarpals. He has a skin tear noted on the left wrist. Neurological: Alert, Oriented x3, Normal Strength, Normal Sensation Psychological: Normal affect Diagnostic/Tx/Re-eval Impressions Forearm X-Ray 04/13/19 19:45 IMPRESSION: No acute osseous findings. Radial soft tissue swelling Electronically Signed: Harpreet Osorio DO at 20:45 EDT Tel , Service support , Hand X-Ray 04/13/19 19:47 IMPRESSION: Age-related degenerative changes. No acute fracture or dislocation. Normal mineralization. No significant soft tissue swelling Electronically Signed: Harpreet Osorio DO at 20:44 EDT Tel , Service support , 04/13/19 19:45 Forearm 2 Views [RAD] Stat 04/13/19 19:47 Hand Min 3 Views [RAD] Stat - Medical Decision Making Tetanus update is provided. Skin tear on the wrist is cleansed and dressed. Hematoma on the forearm is wrapped with Edgardo wrap. Patient was given instructions to ice and elevate his arm. ED Disposition - Plan for ED Patient: Disposition: Home or Assisted Living Diagnosis: Fall, Hematoma Instructions: FALL, Mechanical, Hematoma Referrals: Devyn Montalvo [Primary Care Provider] - 1 Week
[2019-04-13] MEDS: Diphth,Pertuss(Acell),Tet Vac 0.5 ML Vial IM (19:56)
[2019-04-13 21:00] VITALS: RESP 16
== END 2019-04-13 21:01 | disposition home or self-care (01) ==
PROVIDERS: Emergency Provider Emergency Medicine; Family Provider Family Medicine; PCP Family Medicine
DX: S61.512A Laceration without foreign body of left wrist, initial encounter (principal); S50.12XA Contusion of left forearm, initial encounter; S60.222A Contusion of left hand, initial encounter; W11.XXXA Fall on and from ladder, initial encounter; Y93.9 Activity, unspecified; Y92.9 Unspecified place or not applicable; Y99.9 Unspecified external cause status; Z23 Encounter for immunization; Z79.01 Long term (current) use of anticoagulants; Z79.899 Other long term (current) drug therapy; Z87.891 Personal history of nicotine dependence
CPT/HCPCS: 73090; 73130; 90471; 99282

== ENCOUNTER 2019-12-21 16:50 | Emergency (ER) | payer MEDICARE, BC, SELFPAY ==
[2019-07-02 13:56] VITALS: BMI 28.6
[2019-12-21 16:52] VITALS: BP 148/84; PULSE 107; RESP 17; TEMP 38.7; O2SAT 94; BMI 29.0
--- NOTE | 2019-12-21 17:11 | ED.DCSUM_ITS ---
History of Present Illness Chief Complaint: Fever Informant: Patient Onset: Today Context: Gradual Onset Timing: Waxes and wanes Quality: chills, felt cold Location: all over Current Severity: Mild Maximum Severity: Moderate Worsened by: nothing Relieved by: nothing Associated Symptoms: urinary sx x several days Narrative: Patient has an enlarged prostate for which he takes medications and history of urinary tract infections which have been less frequent since he has been onset medication. He sees urology for that. Feels like he has another urinary tract infection. He has had urinary symptoms for several days, started having cold chills today, feeling better now but has a fever here in triage. Presents during the weekend so that they can hopefully catch it early to prevent him from being hospitalized which she has required in the past. States he is not feeling weak or poorly right now. Denies any abdominal pain, nausea, vomiting, hematuria. He takes an anticoagulant for paroxysmal atrial fibrillation. - Past Medical History (1) BPH (benign prostatic hyperplasia) Status: Chronic (2) Essential (primary) hypertension Status: Chronic (3) Paroxysmal atrial fibrillation Status: Chronic Comment: diagnosed 2011 Past Medical History - Allergies and Home Meds Allergies/Adverse Reactions: Allergies No Known Allergies Allergy (Verified 12/21/19 16:52) Primary Care Physician: Devyn Montalvo DO [Primary Care Provider] - Surgical History: - - T+A. Lives: Spouse/ Significant Other Smoking Status: Never smoker - Family History Maternal Family History: Family History (Last Reviewed 07/02/19 @ 13:56 by Yinka Momin) Mother Myocardial infarction Father Colon cancer Family History: Reports: Heart Disease - Mother w/ CAD, [place] 65 y/o. Paternal Family History: Family History (Last Reviewed 07/02/19 @ 13:56 by Yinka Momin) Mother Myocardial infarction Father Colon cancer Family History: Reports: Cancer - Father w/ colon CA, 70s. Review of Systems General: Reports: Chills, Fever, Malaise - gone now that afebrile Eyes: Denies: Visual changes - bilaterally, Diplopia ENT: Denies: Rhinorrhea, Sore throat Cardiovascular: Denies: Chest pain, Palpitations Respiratory: Denies: Dyspnea, Cough, Dyspnea on exertion Gastrointestinal: Denies: Abdominal pain, Nausea, Vomiting, Diarrhea, Melena, Hematochezia Genitourinary: Reports: Frequency, - - urinary urgency. Denies: Dysuria, Hematuria Musculoskeletal: Denies: Neck pain, Back pain, Swelling, Extremity Pain Skin: Denies: Rash, Wounds Neurological: Denies: Headache, Weakness, Numbness Physical Exam Vital Signs/Narrative: Vital Signs Temp Pulse Resp BP Pulse Ox 12/21/19 16:52 101.6 F H 107 H 17 148/84 H 94 Inital Vital Signs reviewed: Yes General: Well nourished, Well developed, No Acute Distress - well-appearing Head: Normocephalic, Atraumatic Eyes: Perrl, EOMI ENT: Moist mucous membranes, No rhinorrhea Neck: Supple, Nontender Cardiovascular: Regular rate, Regular rhythm, No murmurs Respiratory: No distress, CTA bilaterally, Chest nontender Abdomen: Soft, Nontender, Nondistended, Normal bowel sounds Back: Nontender, Normal Inspection Extremities: Nontender, No edema Skin: Normal color, No rash Neurological: Alert, Oriented x3, Cranial nerves II-XII grossly intact, Normal Strength, Normal Sensation Psychological: Normal affect, Normal Mood Diagnostic/Tx/Re-eval Laboratory Results 12/21/19 12/21/19 12/21/19 17:08 17:23 17:23 WBC 13.1 H RBC 4.93 Hgb 15.7 Hct 48.7 MCV 98.8 H MCH 31.8 MCHC 32.2 RDW Std Deviation 44.5 H RDW Coeff of Chastity 12.3 Plt Count 229 MPV 11.9 Immature Gran % (Auto) 0.500 Neut % (Auto) 83.8 H Lymph % (Auto) 5.7 L [place] % (Auto) 9.3 Eos % (Auto) 0.5 Baso % (Auto) 0.2 Absolute Neuts (auto) 11.0 H Absolute Lymphs (auto) 0.74 L Nucleated RBC % 0 Sodium 140 Potassium 3.8 Chloride 110 H Carbon Dioxide 25.0 Anion Gap 5 BUN 19 H Creatinine 1.00 Estim Creat Clear Calc 73.94 Est GFR (MDRD) Af Amer 94 Est GFR (MDRD) Non-Af 77 BUN/Creatinine Ratio 19.1 Glucose 126 H Lactic Acid Calcium 8.9 Urine Color Yellow Urine Clarity Cloudy Urine pH 5.0 Ur Specific Aristes 1.020 Urine Protein 15 H Urine Glucose (UA) 250 H Urine Ketones 5 H Urine Occult Blood 150 H Urine Nitrite Positive H Urine Bilirubin Negative Urine Urobilinogen 4 H Ur Leukocyte Esterase 500 H Urine RBC 0-5 SEEN Urine WBC 25-50 SEEN Ur Squamous Epith Cells 0-5 SEEN Urine Bacteria 4+ Urine Mucus 0 SEEN 12/21/19 17:23 WBC RBC Hgb Hct MCV MCH MCHC RDW Std Deviation RDW Coeff of Chastity Plt Count MPV Immature Gran % (Auto) Neut % (Auto) Lymph % (Auto) [place] % (Auto) Eos % (Auto) Baso % (Auto) Absolute Neuts (auto) Absolute Lymphs (auto) Nucleated RBC % Sodium Potassium Chloride Carbon Dioxide Anion Gap BUN Creatinine Estim Creat Clear Calc Est GFR (MDRD) Af Amer Est GFR (MDRD) Non-Af BUN/Creatinine Ratio Glucose Lactic Acid 1.9 Calcium Urine Color Urine Clarity Urine pH Ur Specific Aristes Urine Protein Urine Glucose (UA) Urine Ketones Urine Occult Blood Urine Nitrite Urine Bilirubin Urine Urobilinogen Ur Leukocyte Esterase Urine RBC Urine WBC Ur Squamous Epith Cells Urine Bacteria Urine Mucus - Medical Decision Making Urinalysis consistent with infection. This was sent for culture and he was started on IV Rocephin empirically. He has a mild leukocytosis, a lactate that is well within normal limits, and kidney function is good. He meets criteria for sepsis, however clinically looks well. He prefers to go home. We discussed an offer for admission but he does not feel he requires it at this time and feels safe to go home. He was given Tylenol for his fever. I think this is reasonable, we discussed reasons to return. We will put him on Keflex for right now at home, and we discussed follow-up. He and were comfortable with this plan all questions answered at the bedside. ED Disposition - Plan for ED Patient: Disposition: Home or Assisted Living Diagnosis: UTI (urinary tract infection), Sepsis due to urinary tract infection Instructions: ED UTI Pyelonephritis Male Prescriptions: Cephalexin [Keflex] 500 mg PO 4X/DAY #40 cap Transmission Status: Pending to [facility]/pharmacy #[id number] Referrals: Devyn Montalvo DO [Primary Care Provider] - 3-5 Days (Or your urologist)
[2019-12-21 17:16] VITALS: BP 139/84; PULSE 101; PULSE 102; RESP 15; TEMP 38.2; O2SAT 93; O2SAT 94
[2019-12-21 17:16] LABS: Mucous, Urine 0 SEEN /hpf (<or=2+)
[2019-12-21] MEDS: Acetaminophen 500 MG Tablet 1000 MG PO (17:23)
[2019-12-21 17:24] LABS: Color, Urine Yellow (Yellow); Glucose, Dipstick 250 mg/dl (Normal); Ketone-Dipstick 5 mg/dl (Negative); Leukocyte Esterase-Dipstick 500 /ul (Negative); Nitrite-Dipstick Positive (Negative); Occult Blood-Urine 150 /ul (Negative); Protein-Dipstick 15 mg/dl (Negative); Urine Bilirubin Dipstick Negative (Negative); Urine Clarity Cloudy (Clear); Urine Urobilinogen 4 mg/dl (Normal)
[2019-12-21 17:30] LABS: Bacteria 4+ /hpf (None Seen); Red Blood Cells-Urine 0-5 SEEN /hpf (0-5); Squamous Epithelial Cells - UA 0-5 SEEN /hpf (0-5); White Blood Cells 25-50 SEEN /hpf (0-5)
[2019-12-21 17:39] LABS: Absolute Lymphocyte Count 0.74 X10^3/uL (0.83-4.51); Basophil# 0.02 X10^3/uL; Basophil% 0.2 % (0-1); Eosinophil# 0.06 X10^3/uL; Eosinophils% 0.5 % (0-5); Hematocrit 48.7 % (40-54); Hemoglobin 15.7 g/dL (13.0-16.5); Lymphocyte # 0.74 X10^3/ul (4.0); Lymphocyte % 5.7 % (19-41); Mean Corp Hgb Conc 32.2 g/dL (32-36); Mean Corpuscular Hgb 31.8 pg (27.0-32.0); Mean Corpuscular Volume 98.8 fL (80-94); Mean Platelet Vol. 11.9 fl (6.2-12.0); Monocyte# 1.22 X10^3/uL; Monocyte% 9.3 % (0-10); NRBC Flagged by Analyzer 0 % (0-5); Neutrophil # 10.96 X10^3/uL (2.7-7.7); Neutrophil % 83.8 % (47-70); Platelet Count 229 K/mm3 (150-450); RBC Distribution Width CV 12.3 % (11.6-14.6); RBC Distribution Width SD 44.5 fl (35.1-43.9); Red Blood Count 4.93 M/mm3 (4.6-6.2); White Blood Count 13.1 K/mm3 (4.4-11.0)
[2019-12-21 17:49] LABS: Anion Gap 5 (5-15); BUN 19 mg/dL (7-18); BUN/Creat Ratio 19.1 RATIO (10-20); Calcium,Total 8.9 mg/dL (8.5-10.1); Chloride 110 mmol/L (98-107); EST Glomerular Filtration Rate 77 mL/min (>60); Est Glom Filt Rate - Afr Amer 94 mL/min (>60); Estimated Creatinine Clearance 73.94 ml/min; Glucose 126 mg/dL (74-106); Potassium 3.8 mmol/L (3.5-5.1); Sodium Level 140 mmol/L (136-145)
[2019-12-21 17:57] LABS: Lactic Acid 1.9 mmol/L (0.4-1.9)
[2019-12-21] MEDS: Ceftriaxone 1 GM/50 ML BAG IV (18:42)
[2019-12-21 19:59] VITALS: PULSE 100; RESP 18; TEMP 36.8; O2SAT 97
== END 2019-12-21 20:00 | disposition home or self-care (01) ==
PROVIDERS: Emergency Provider Emergency Medicine; PCP Family Medicine
DX: A41.9 Sepsis, unspecified organism (principal); N39.0 Urinary tract infection, site not specified; I10 Essential (primary) hypertension; I48.0 Paroxysmal atrial fibrillation; N40.0 Benign prostatic hyperplasia without lower urinary tract symptoms; Z79.01 Long term (current) use of anticoagulants; Z79.899 Other long term (current) drug therapy
CPT/HCPCS: 80048; 81001; 83605; 85025; 87077; 87086; 87088; 87186; 96365; 99283; J7050; A4216

== ENCOUNTER → 2020-02-04 10:14 | Outpatient (CLI) | payer MEDICARE, BC, SELFPAY ==
[2020-02-04 09:32] VITALS: BMI 28.3
--- NOTE | 2020-02-04 10:17 | RAD_ITS ---
STUDY: X-RAY CHEST REASON FOR EXAM: Male, 79 years old. SWIFT -- a-fib TECHNIQUE: PA and lateral views of the chest. COMPARISON: Comparison is made with prior study dated 09/21/2017. FINDINGS: The lungs are clear and expanded. There is no demonstrated pleural abnormality. Normal size heart. Normal mediastinum and franklyn. Normal visualized pulmonary arteries. There is atherosclerotic calcification of the aortic arch with tortuosity. There are diffuse degenerative changes of the visualized thoracic spine. Increased kyphosis. There is degenerative osteoarthritis of the bilateral shoulders. There is no demonstrated abnormality of the visualized soft tissue structures of the upper abdomen. RAD/Chest PA and Lateral IMPRESSION: Stable examination. No acute abnormality is seen. Electronically Signed: William High, at 11:52 EDT , Service support ,
[2020-02-04 11:26] LABS: Thyroid Stim Hormone (TSH) 0.92 uIU/mL (0.358-3.74)
== END ==
PROVIDERS: PCP Family Medicine; Referring Provider Internal Medicine Cardiovascular Disease; Visit Provider Internal Medicine Cardiovascular Disease
DX: R06.00 Dyspnea, unspecified (principal); I48.0 Paroxysmal atrial fibrillation
CPT/HCPCS: 36415; 71046; 83880; 84443

== ENCOUNTER → 2020-02-11 06:23 | Outpatient (CLI) | payer MEDICARE, BC, SELFPAY ==
[2020-02-04 09:32] VITALS: BMI 28.3
--- NOTE | 2020-02-11 12:24 | STRESSREP_ITS ---
Stress Test Report Pharmacologic myocardial perfusion stress test. 79-year-old male with a history of previous atrial fibrillation and hypertension. Stress protocol. Resting EKG demonstrates normal sinus rhythm with a rate of 55 beats minute normal intervals are noted resting blood pressure is 122/82 mmHg. The patient initially was exercised according to regular Bud protocol for 3 minutes and 39 seconds the maximum heart rate was 91 bpm which was 63% of maximum predicted heart rate the maximum workload was 5.3 metabolic equivalents. The test was t erminated due to the patient being unable to walk on the treadmill. It was switched to a pharmacologic myocardial perfusion stress test. 0.4 mg of regadenoson was infused per usual protocol continuous EKG monitoring was performed. The patient maintained sinus rhythm throughout the recording. At rest there were no ST or T wave changes noted to suggest abnormal flow reserve at peak infusion nonspecific ST-T wave changes were noted with no denote any abnormal flow reserve. Resting blood pressure was 160/88 with a final blood pressure 148/82. Myocardial perfusion protocol. 14.5 mCi of technetium 99m sestamibi was injected at rest. 0.4 mg of regadenoson was infused per usual protocol peak infusion 44.7 mCi of technetium 99m sestamibi was injected stress images were obtained stress and rest images were reconstructed and compared in the short axis vertical and horizontal long axis. Gated images could not be obtained. Perfusion SPECT analysis: Review of the stress images demonstrate normal uptake of tracer noted in all areas of the myocardium the resting images similar demonstrate normal uptake of tracer noted in all areas of the myocardium. No reversibility is noted suggest ischemia. Conclusion: Pharmacologic myocardial perfusion stress test with no evidence of ischemia.
== END ==
PROVIDERS: PCP Family Medicine; Referring Provider Internal Medicine Cardiovascular Disease; Visit Provider Internal Medicine Cardiovascular Disease
DX: R06.09 Other forms of dyspnea (principal)
CPT/HCPCS: 78452; 93017; A9500; A4216; J2785

== ENCOUNTER → 2020-03-23 06:47 | Outpatient (CLI) | payer MEDICARE, BC, SELFPAY ==
[2020-02-04 09:32] VITALS: BMI 28.3
--- NOTE | 2020-03-23 10:53 | PFTCOMP ---
COMPLETE PULMONARY FUNCTION TEST INTERPRETATION Brief HPI: Patient is a 80 year old Black male, currently under the care of Dr. Clay, who presents to [facility] for complete pulmonary function tests secondary to diagnosis of dyspnea. Respiratory therapist reports good effort and reproducible results. Interpretation: Forced expiration spirometry shows no large airways obstructive ventilatory defect with an FEV1 of 73% predicted. There is no significant bronchodilator response by strict ATS criteria. Spirograms are of good quality and plateau slowly, indicating slowly emptying areas of the lungs. The respiratory flow volume loop shows decreased expiratory flow rates at high lung volumes consistent with small airways obstruction. Lung volumes by body plethysmography show a decreased total lung capacity at 5.44 L, 72% predicted. All other lung volumes are reduced symmetrically. Diffusion capacity by carbon monoxide is normal at 92% predicted. The airway resistance is elevated. No previous pulmonary function tests were available for review. Impression: Mild restrictive ventilatory defect with some stigmata of possible small airways disease.
== END ==
PROVIDERS: PCP Family Medicine; Referring Provider Internal Medicine Cardiovascular Disease; Visit Provider Internal Medicine Cardiovascular Disease
DX: I48.0 Paroxysmal atrial fibrillation (principal); R06.00 Dyspnea, unspecified
CPT/HCPCS: 94060; 94726; 94729

== ENCOUNTER 2020-05-25 21:51 | Emergency (ER) | payer MEDICARE, BC, SELFPAY ==
[2020-02-04 09:32] VITALS: BMI 28.3
[2020-05-25 21:52] VITALS: BP 200/86; PULSE 64; RESP 18; TEMP 36; BMI 28.8
[2020-05-25 21:54] VITALS: BP 200/86; PULSE 64; RESP 18; TEMP 36
--- NOTE | 2020-05-25 22:08 | CT_ITS ---
STUDY: CT BRAIN WITHOUT CONTRAST REASON FOR EXAM: Male, 80 years old. Fall. Injury to left side of the hand. Laceration. Patient on anticoagulant. RADIATION DOSAGE (If Supplied By Facility): CTDIvol = ( 44.99 ) mGy, DLP = ( 897.35 ) mGycm TECHNIQUE: Transaxial CT imaging of the brain was performed without administration of intravenous contrast material. Individualized dose optimization techniques were used for this CT. COMPARISON: No relevant priors. FINDINGS: Normal soft tissue structures. Normal calvarium. Normal size ventricles and extra-axial spaces for the patient''s age. There are areas of decreased attenuation within the white matter tracts of the supratentorial brain, consistent with microvascular disease changes. Normal basal ganglia and thalami. Normal brainstem. Normal cerebellum. There is no intracranial hemorrhage. There are no findings of an acute ischemic infarction. Normal visualized paranasal sinuses. CT/Brain/Head without Contrast IMPRESSION: Chronic involutional changes without evidence of acute intracranial or calvarial abnormality. Electronically Signed: Shoaib Prescott DO at 22:50 EST Tel [phone], Service support ,
--- NOTE | 2020-05-25 22:08 | ED.DCSUM_ITS ---
History of Present Illness Chief Complaint: Laceration Informant: Patient Onset: Today Current Severity: Mild Maximum Severity: Mild Narrative: Patient presents with a scalp laceration after falling at home. He states he leaned over to pick something up off the floor and lost his balance, falling forward and striking the left side of his head against a coffee table. He denies loss of consciousness. Patient is on Eliquis. He reports his tetanus is up-to-date. - Past Medical History (1) Essential (primary) hypertension Status: Chronic (2) Paroxysmal atrial fibrillation Status: Chronic Comment: diagnosed 2011 Past Medical History - Allergies and Home Meds Allergies/Adverse Reactions: Allergies No Known Allergies Allergy (Verified 02/04/20 09:33) Primary Care Physician: Devyn Montalvo DO [Primary Care Provider] - Surgical History: - - T+A. Smoking Status: Former smoker - Family History Maternal Family History: Family History (Last Reviewed 02/04/20 @ 09:[address] Jalen Clay MD) Mother Myocardial infarction Father Colon cancer Family History: Reports: Heart Disease - Mother w/ CAD, [place] 65 y/o. Paternal Family History: Family History (Last Reviewed 02/04/20 @ 09:[address] Jalen Clay MD) Mother Myocardial infarction Father Colon cancer Family History: Reports: Cancer - Father w/ colon CA, 70s. Review of Systems General: Denies: Chills, Fever Eyes: Denies: Visual changes - bilaterally ENT: Denies: Bilateral ear pain Cardiovascular: Denies: Chest pain Respiratory: Denies: Dyspnea, Cough Gastrointestinal: Denies: Abdominal pain, Nausea, Vomiting, Diarrhea Musculoskeletal: Denies: Neck pain, Extremity Pain Neurological: Reports: Headache Hematologic: Reports: Easy bleeding - Secondary to Eliquis. Denies: Easy bruising Allergy: Denies: Uticaria Physical Exam Vital Signs/Narrative: Vital Signs Temp Pulse Resp BP 05/25/20 21:54 96.8 F L 64 18 200/86 H 05/25/20 21:52 96.8 F L 64 18 200/86 H Inital Vital Signs reviewed: Yes General: Well nourished, Well developed Head: Normocephalic, - - 3 cm linear laceration to the left parietal scalp. ENT: Moist mucous membranes Neck: Supple, - - No C-spine tenderness. Cardiovascular: Regular rate, Regular rhythm Respiratory: No distress, CTA bilaterally Abdomen: Soft, Nontender Extremities: Nontender Skin: - - Laceration as above Neurological: Alert, Oriented x3, Normal Strength, Normal Sensation Psychological: Normal affect Diagnostic/Tx/Re-eval Impressions Brain CT 05/25/20 22:08 IMPRESSION: Chronic involutional changes without evidence of acute intracranial or calvarial abnormality. Electronically Signed: Shoaib Prescott DO at 22:50 EST Tel [phone], Service support , 05/25/20 22:08 CT Head [Brain/Head without Contrast] [CT] Stat - Medical Decision Making CT scan is reviewed with the patient. Left scalp laceration is cleansed and closed. Please see procedure note for details. Patient is to have zaid re moved in 1 week. Procedures - Lacerations No standard instances Length: 1.18 in Depth: Sub Q Shape: Linear Laceration repair: Debrideded, Lidocaine with epi Number of Sutures/[place]: 4 Comment: Wound was anesthetized with 2 cc of 1% lidocaine with epinephrine. Wound was cleansed. 4 zaid were placed across the wound. ED Disposition - Plan for ED Patient: Disposition: Home or Assisted Living Diagnosis: Scalp laceration, Closed head injury Instructions: ED Head Injury (Adult), ED Laceration: All Closures Referrals: Devyn Montalvo DO [Primary Care Provider] - 7 Days for suture removal
[2020-05-25] MEDS: Lidocaine 1% /Epi 1:100 (20ml) 20 ML Vial INFILT (22:59)
[2020-05-25 23:03] VITALS: BP 134/67; PULSE 71; RESP 16; O2SAT 95
== END 2020-05-25 23:04 | disposition home or self-care (01) ==
PROVIDERS: Emergency Provider Emergency Medicine; PCP Family Medicine
DX: S01.01XA Laceration without foreign body of scalp, initial encounter (principal); S09.90XA Unspecified injury of head, initial encounter; I48.0 Paroxysmal atrial fibrillation; I10 Essential (primary) hypertension; Z87.891 Personal history of nicotine dependence; Z79.01 Long term (current) use of anticoagulants; W01.0XXA Fall on same level from slipping, tripping and stumbling without subsequent striking against object, initial encounter
CPT/HCPCS: 12001; 70450; 99283; J7030

== ENCOUNTER → 2020-07-09 15:22 | Outpatient (CLI) | payer MEDICARE, BC, SELFPAY ==
[2020-07-09 17:00] LABS: Absolute Lymphocyte Count 1.66 X10^3/uL (0.83-4.51); Absolute Neutrophil Count 4.2 X10^3/uL (2.0-7.7); Basophil# 0.07 X10^3/uL; Eosinophil# 0.36 X10^3/uL; Eosinophils% 5.1 % (0-5); Hematocrit 49.1 % (40-54); Hemoglobin 16.2 g/dL (13.0-16.5); Lymphocyte # 1.66 X10^3/ul (4.0); Lymphocyte % 23.4 % (19-41); Mean Corpuscular Hgb 32.5 pg (27.0-32.0); Mean Corpuscular Volume 98.6 fL (80-94); Mean Platelet Vol. 12.4 fl (6.2-12.0); Monocyte# 0.81 X10^3/uL; Monocyte% 11.4 % (0-10); NRBC Flagged by Analyzer 0 % (0-5); Neutrophil # 4.16 X10^3/uL (2.7-7.7); Neutrophil % 58.8 % (47-70); Platelet Count 266 K/mm3 (150-450); RBC Distribution Width SD 43.5 fl (35.1-43.9); Red Blood Count 4.98 M/mm3 (4.6-6.2); White Blood Count 7.1 K/mm3 (4.4-11.0)
[2020-07-09 17:39] LABS: ALB/GLOB Ratio 0.9 RATIO (0.9-2.4); AST(SGOT) 16 U/L (15-37); Alanine Aminotransfer ALT/SGPT 30 U/L (16-61); Albumin, Serum 3.3 g/dL (3.2-5.0); Alkaline Phosphatase 78 U/L (45-117); Anion Gap 4 (5-15); BUN 17 mg/dL (7-18); BUN/Creat Ratio 16.5 RATIO (10-20); Calcium,Total 8.6 mg/dL (8.5-10.1); Chloride 108 mmol/L (98-107); Creatinine, Serum 1.03 mg/dL (0.70-1.30); EST Glomerular Filtration Rate 74 mL/min (>60); Est Glom Filt Rate - Afr Amer 90 mL/min (>60); Globulin 3.7 g/dL (2.2-4.2); Glucose 103 mg/dL (74-106); Potassium 4.2 mmol/L (3.5-5.1); Sodium Level 140 mmol/L (136-145)
== END ==
PROVIDERS: PCP Family Medicine; Visit Provider Family Medicine
DX: Z01.818 Encounter for other preprocedural examination (principal)
CPT/HCPCS: 36415; 80053; 85025

== ENCOUNTER 2020-07-31 10:55 | Day surgery (SDC) | payer MEDICARE, BC, SELFPAY ==
--- NOTE | 2020-07-22 10:00 | EKG12_ITS ---
Test Reason : PRE OP Blood Pressure : / mmHG Vent. Rate : 059 BPM Atrial Rate : 059 BPM P-R Int : 254 ms QRS Dur : 110 ms QT Int : 454 ms P-R-T Axes : 002 -20 028 degrees QTc Int : 449 ms Sinus bradycardia with 1st degree A-V block Septal infarct , age undetermined Abnormal ECG Confirmed by WILLY YANEZ, KISHA ([id number]), editor book ANGELITA JONES ([id number]) on 07/23/2020 11:16:23 AM Referred By: David Solano Confirmed By:KISHA AGUILERA MD
--- NOTE | 2020-07-22 10:01 | RAD_ITS ---
STUDY: X-RAY CHEST REASON FOR EXAM: Male, 80 years old. Pre-op, surgery next Monday. TECHNIQUE: PA and lateral views of the chest. COMPARISON: Comparison is made with prior study dated 02/04/2020. FINDINGS: Stable mild elevation of the right hemidiaphragm. Scattered calcified granulomas. The lungs are clear. There is no demonstrated pleural abnormality. Normal size heart. Normal mediastinum and franklyn. Normal visualized pulmonary arteries. There is atherosclerotic calcification of the aortic arch with tortuosity. There are diffuse degenerative changes of the visualized thoracic spine. Levoscoliosis. There is degenerative osteoarthritis of the bilateral shoulders. There is no demonstrated abnormality of the visualized soft tissue structures of the upper abdomen. RAD/Chest PA and Lateral IMPRESSION: Stable examination. No acute abnormality is seen. Electronically Signed: William High MD at 13:14 EST , Service support ,
[2020-07-22 11:33] LABS: Absolute Lymphocyte Count 1.51 X10^3/uL (0.83-4.51); Absolute Neutrophil Count 4.8 X10^3/uL (2.0-7.7); Basophil# 0.07 X10^3/uL; Basophil% 0.9 % (0-1); Eosinophil# 0.26 X10^3/uL; Eosinophils% 3.4 % (0-5); Hematocrit 50.3 % (40-54); Hemoglobin 16.2 g/dL (13.0-16.5); Lymphocyte # 1.51 X10^3/ul (4.0); Lymphocyte % 19.9 % (19-41); Mean Corp Hgb Conc 32.2 g/dL (32-36); Mean Corpuscular Hgb 32.2 pg (27.0-32.0); Mean Platelet Vol. 12.2 fl (6.2-12.0); Monocyte# 0.93 X10^3/uL; Monocyte% 12.2 % (0-10); NRBC Flagged by Analyzer 0 % (0-5); Neutrophil # 4.79 X10^3/uL (2.7-7.7); Neutrophil % 63.1 % (47-70); Platelet Count 304 K/mm3 (150-450); RBC Distribution Width CV 12.2 % (11.6-14.6); RBC Distribution Width SD 45.3 fl (35.1-43.9); Red Blood Count 5.03 M/mm3 (4.6-6.2); White Blood Count 7.6 K/mm3 (4.4-11.0)
[2020-07-22 11:42] LABS: International Normalized Ratio 1.4; Prothrombin Time (Protime)PT. 16.7 SECONDS (11.7-14.9)
[2020-07-22 11:43] LABS: Partial Thromboplast Time 34.1 Seconds (24.1-36.2)
[2020-07-22 11:58] LABS: Anion Gap 5 (5-15); BUN 17 mg/dL (7-18); Calcium,Total 8.8 mg/dL (8.5-10.1); Chloride 108 mmol/L (98-107); Creatinine, Serum 1.06 mg/dL (0.70-1.30); EST Glomerular Filtration Rate 72 mL/min (>60); Est Glom Filt Rate - Afr Amer 87 mL/min (>60); Glucose 86 mg/dL (74-106); Potassium 4.3 mmol/L (3.5-5.1); Sodium Level 142 mmol/L (136-145)
[2020-07-23 14:25] LABS: Hemoglobin A1c 5.6 % (3.8-5.6)
[2020-07-31] VITALS (9 sets, daily range): BP systolic 147–169; BP diastolic 74–90; PULSE 55–64; RESP 16–18; TEMP 36.6–36.7; O2SAT 93–97; BMI 28.7
--- NOTE | 2020-07-31 12:14 | DCINST_ITS ---
Discharge Diet: No Restrictions Discharge Activity: - - No bending twisting or lifting greater than 5 pounds May resume sexual activity in: 3 weeks Weight Bearing Status: Weight bearing as tolerated Call your doctor if your incision/area has: Continuous Slow Oozing, Sudden Increased Bleeding, Increased Pain/ Swelling, Increased Redness, Foul Smelling Discharge, Swelling at the incision site Call your doctor if you observe: Fever of 101 or Higher, Coldness, Increased Pain, Numbness or Tingling, Change in Color, Inability to urinate, Inability to have a bowel movement, Using more than one pad per hour, Shortness of breath, Dizziness, Fainting spells, Swelling in the ankles, Chest pain, Prolonged hiccoughing, Increased palpitations (irregular heartbeat), Calf discomfort, Uncontrolled pain Change Dressing in (Days):: 1 - Daily dressing changes with iodine to incision Cleanse incision/area with: Do not get Incision Wet, Keep Dressing Clean & Dry Additional Dressing/Incision Instructions:: Okay to shower with incision covered with waterproof dressing. Avoid bathtubs, swimming pools, hot tubs etc. Allergies/Adverse Reactions: Allergies No Known Allergies Allergy (Verified 07/20/20 14:17) Medications to take at Discharge dutasteride 0.5 mg capsule 0.5 mg PO DAILY 09/25/18 amiodarone 200 mg tablet 200 mg PO DAILY #90 tab 02/04/20 apixaban 5 mg tablet 5 mg PO BID #180 tab 02/04/20 bisoprolol 5 mg-hydrochlorothiazide 6.25 mg tablet 1 tab PO DAILY #90 tab 02/04/20 Hydrocodone Bitart/Apap 5-325 [[place] 5MG-325MG] 1 - 2 tablet PO Q4H PRN PRN 7 Days #56 tablet 07/31/20 The following prescriptions were given: Hydrocodone Bitart/Apap 5-325 [[place] 5MG-325MG] 1 - 2 tablet PO Q4H PRN PRN 7 Days #56 tablet PRN Reason: Pain Transmission Status: Received by [facility]/pharmacy #[id number] Primary Care Physician: Devyn Montalvo DO [Primary Care Provider] - Test Results: Test results from this visit will be discussed in further detail at your follow- up appointment, if applicable. Please Follow Up With: David Solaon DO - 3 weeks
[2020-07-31] MEDS: Lactated Ringers 1,000 ML 100 ML IV ×3 (12:17→16:25)
[2020-07-31] MEDS: Cefazolin 2 GM in 0.9% Normal Saline 100 ML IV (12:19)
--- NOTE | 2020-07-31 12:30 | RAD_ITS ---
STUDY: X-RAY - LUMBAR SPINE REASON FOR EXAM: Male, 80 years old. L3-L4 Foraminotomy discectomy. TECHNIQUE: Single intraoperative view(s) of the lumbar spine were obtained. COMPARISON: None FINDINGS: Intraoperative localizing image was obtained during discectomy. RAD/Spine 1 View Any Level IMPRESSION: Intraoperative image as noted. Electronically Signed: Tarun Steinberg DO at 16:03 EST Tel [phone], Service support ,
[2020-07-31] MEDS: THROMBIN (RECOMBINANT) 20,000 UNIT VIAL 20000 UNIT TOPICAL (13:00)
[2020-07-31] MEDS: Bupivacaine 0.25% 30 ML Vial (15:26)
--- NOTE | 2020-07-31 16:03 | PCM.PN.ORT ---
Subjective: The patient was seen and examined postoperatively in the PACU. He is doing well. His pain is minimal. He has no complaints. He is resting comfortably - Physical Exam Vitals/I&O's: Vital Signs Temp Pulse Resp BP Pulse Ox 98.1 F 62 16 149/84 H 94 07/31/20 11:32 07/31/20 11:32 07/31/20 11:32 07/31/20 11:32 07/31/20 11:32 Oxygen Delivery Method Room Air Weight: 229 lb 8.019 oz Body Mass Index (BMI) 28.7 Intake and Output for Last 24 Hours 07/29/20 07/30/20 07/31/20 23:59 23:59 23:59 Output Total 125 / 125 Balance -125 / -125 General: Alert, Oriented x3, Cooperative, No apparent distress HEENT: PERRLA, EOMI Neck: Supple, No JVD Lungs: Normal air movement Cardiovascular: Regular rate, Regular Rhythm Abdomen: Soft, Non Tender, Non-Distended Extremities: No cyanosis, No edema, Capillary Refill Less than 3 Seconds, No Calf Tenderness Skin: - - Dressing clean dry and intact Neurological: Cranial nerves II-XII grossly intact, Deep Tendon Reflexes 2+/4 and Symmetrical, Neuro grossly intact, Motor Exam 5/5 strength throughout Psych/Mental Status: Normal Affect, Appropriate Microbiology Past 72 Hours 07/30/20 08:25 Interface Orders SARS-CoV-2 Antigen (Rapid) - Final Current Medications Lactated Ringer's () 1,000 mls @ 100 mls/hr IV .Q10H MARISA Last Admin: 07/31/20 12:17 Dose: 100 mls/hr Documented by: Medical Necessity - Tobacco Use Smoking Status: Former smoker Tobacco Use: Non-smoker Assessment/Plan All Active Problems (Last Reviewed 02/04/20 @ 09:[address] Jalen Clay MD) Lumbar degenerative disc disease (Acute) Lumbar disc displacement without myelopathy (Acute) Lumbar and sacral osteoarthritis (Acute) Fatigue (Resolved) Staphylococcal infection of skin (Resolved) UTI (urinary tract infection) (Resolved) Okay to discharge home Follow-up in [address] Solano for suture removal See discharge instructions No bending twisting or lifting anything greater than 5 pounds Daily dressing changes with iodine to incision
--- NOTE | 2020-07-31 16:09 | PCM.OPRPT ---
Problem List (1) Lumbar disc displacement without myelopathy Status: Acute Report of Operation Date of Procedure: 07/31/20 Pre-Operative Diagnosis: 1. right L3-4 lumbar disc herniation. 2. 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 Right L3-4 lumbar disc herniation. 2. Lumbar spondylosis, L3-4, with stenosis Surgery/Procedure Performed:: Right L3-4 laminotomy, discectomy, foraminotomy Description of Surgical Findings:: STATEMENT OF MEDICAL NECESSITY: The patient is a 80-year-old male with intractable back and leg pain. Image studies confirm above diagnosis. He has failed conservative treatment to include: medicine, therapy, and injections. The patient opted for operative intervention, understanding the risks to include, but not limited to infection, bleeding, damage to nerves, arteries, and veins, possibility of spinal fluid leak, continued pain, need for further surgery, deep vein thrombosis, pulmonary embolism, heart attack, risk of stroke, or . DESCRIPTION OF PROCEDURE: The patient was identified in the preoperative holding area. There, he received the preoperative IV antibotics, Ancef, and then was transferred to the operating suite. Once in the operating suite, after general endotracheal anesthesia was established, the patient was transferred to the [place] operating table in the prone position. All bony prominences were padded accordingly. The lumbar spine was prepped and draped in standard surgical fashion. Midline incision was made and taken down to the lumbodorsal fascia. This was divided and subperiosteal dissection taken down to the level of the right facet joint. Deep retractors were placed. A right L3-4 laminotomy was performed. At this point a curette was utilized in the foramen and a foraminotomy was performed using a kerrison. The nerve was identified, and the nerve root was then retracted medially. A large subligamentous disc herniation was identified. A knife was used to perform an annulotomy and a large subligamentous disc was removed using pituitaries, any loose fragments were identified and removed and the wound was irrigated. Tissel was placed over the dura as a hemostatic agent. The fascia was closed with #1 Vicryl, subcutaneous with 2-0 Vicryl, skin was closed with 2-0 nylon. Sterile dressing was applied with 4 x 4, ABD, and tape. Sponge, instrument, and needle counts were correct at the end of the case. The patient was extubated, taken to PACU without incident. civil engineering professional: None - NEENA Champagne was present during the entire procedure and necessary for performance of the procedure for assistance in retraction as well as closure. Type of Anesthesia:: General Specimen's removed: L3-4 disc material Drains: None Estimated Blood Loss (mL): 75 cc Fluids Replaced: 1800 cc - Complications None - Admit VTE Documentation VTE Mechan Device Prophylaxis: SCD's, Thigh High VANESSA De Luna
== END 2020-07-31 19:20 | disposition home or self-care (01) ==
LOC: SDC 10:55 → AC 10:56
PROVIDERS: PCP Family Medicine; Referring Provider Orthopaedic Surgery; Visit Provider Orthopaedic Surgery
PROC: (CPT 63030; principal; 2020-07-31 12:00)
DX: M51.26 Other intervertebral disc displacement, lumbar region (principal); M51.36 Other intervertebral disc degeneration, lumbar region; M47.26 Other spondylosis with radiculopathy, lumbar region; M48.061 Spinal stenosis, lumbar region without neurogenic claudication; M41.86 Other forms of scoliosis, lumbar region; I48.91 Unspecified atrial fibrillation; I10 Essential (primary) hypertension; M06.9 Rheumatoid arthritis, unspecified; G47.30 Sleep apnea, unspecified; Z79.899 Other long term (current) drug therapy; Z87.891 Personal history of nicotine dependence; Z85.828 Personal history of other malignant neoplasm of skin
CPT/HCPCS: 00630; 63030; 36415; 71046; 72020; 76000; 80048; 83036; 85025; 85610; 85730; 87426; 93005; C9803; J7120; J2405; J3490

== ENCOUNTER → 2020-12-01 07:50 | Outpatient (CLI) | payer MEDICARE, BC, SELFPAY ==
[2020-07-31 11:32] VITALS: BMI 28.7
--- NOTE | 2020-12-01 07:53 | ECHOD_ITS ---
Reason For Study: SOB Procedure This was a 2D Doppler, Color Flow transthoracic echocardiogram. Exam performed in department. Left Ventricle Normal LV size. Left ventricular systolic function is normal. The estimated ejection fraction is 60 %. No regional wall motion abnormalities noted. Right Ventricle Normal RV size. Normal systolic function. Atria Normal left atrium. Normal right atrium. Mitral Valve Normal mitral valve. Mild (1+) eccentric mitral valve insufficiency. Tricuspid Valve Normal tricuspid valve. Aortic Valve Trisinus/trileaflet aortic valve. Mild (1+) aortic valve insufficiency. Pulmonic Valve Normal pulmonic valve. Mild (1+) pulmonic valve insufficiency. Great Vessels Mildly dilated aortic root. The pulmonary artery is normal size. Normal inferior vena cava. Pericardium/Pleural No pericardial effusion. MMode/2D Measurements & Calculations LVIDd: 4.3 cm IVSd: 0.99 cm Ao root diam: 4.1 cm LVIDs: 3.2 cm LVPWd: 0.99 cm LA dimension: 5.1 cm RVDd: 2.8 cm FS: 25.3 % LAV(MOD-bp): 89.5 ml LA A4 area: 27.3 cm2 RA A4 area: 21.1 cm2 LAV(MOD-bp) Indexed: 38.4 ml/m2 LAV(MOD-sp2): 88.5 ml LAV(MOD-sp4): 89.4 ml Doppler Measurements & Calculations MV E max catrer: 59.2 cm/sec Lat Peak E' Carter: 8.3 cm/sec Med Peak E' Carter: 4.6 cm/sec MV A max carter: 105.6 cm/sec E/E' lat: 7.1 E/E' med: 12.7 MV E/A: 0.56 Ao V2 max: 139.1 cm/sec AI max carter: 430.6 cm/sec LV V1 max: 125.2 cm/sec Ao max P.7 mmHg AI max P.2 mmHg LV V1 max P.3 mmHg Ao V2 mean: 95.8 cm/sec LV V1 mean P.2 mmHg Ao mean P.1 mmHg AI dec slope: 182.9 cm/sec2 LV V1 mean: 84.0 cm/sec Ao V2 VTI: 33.4 cm AI P1/2t: 689.5 msec LV V1 VTI: 31.6 cm PA V2 max: 84.0 cm/sec TR max carter: 254.3 cm/sec TR max P.9 mmHg ECHO/Echo Complete Interpretation Summary Normal LV size. Left ventricular systolic function is normal. The estimated ejection fraction is 60 %. Mildly dilated aortic root. Mild (1+) aortic valve insufficiency. Mild (1+) eccentric mitral valve insufficiency. Ordering Physician: Devyn Montalvo Referring Physician: Devyn Montalvo Performed By: Claudette Comer, RDCS, RVT
== END ==
PROVIDERS: PCP Family Medicine; Referring Provider Family Medicine; Visit Provider Family Medicine
DX: I48.0 Paroxysmal atrial fibrillation (principal); R06.02 Shortness of breath
CPT/HCPCS: 93306

== ENCOUNTER 2021-01-20 22:14 | Inpatient (IN) | payer MEDICARE, BC, SELFPAY ==
[2021-01-20 12:29] VITALS: BMI 28.7
[2021-01-20 22:15] VITALS: BP 156/91; PULSE 83; RESP 19; TEMP 38.4; O2SAT 90; BMI 29.9
[2021-01-20 22:23] VITALS: BP 148/82; PULSE 90; RESP 24; TEMP 38.4; O2SAT 91
--- NOTE | 2021-01-20 22:31 | EKG12_ITS ---
Test Reason : FEVER Blood Pressure : / mmHG Vent. Rate : 084 BPM Atrial Rate : 084 BPM P-R Int : 202 ms QRS Dur : 108 ms QT Int : 396 ms P-R-T Axes : -14 -34 029 degrees QTc Int : 467 ms Normal sinus rhythm with sinus arrhythmia Left axis deviation Abnormal ECG Confirmed by EDWIGE YANEZ, XAVI ([id number]), online editor ANGELITA JONES ([id number]) on 01/25/2021 9:10:11 AM Referred By: ESTRADA Confirmed By:JASMIN GIBBONS MD
--- NOTE | 2021-01-20 22:34 | EDS_ITS ---
HPI History of Present Illness Chief Complaint: Fever Informant: patient and spouse/S.O. Narrative Narrative: Patient is a 80-year-old male with a past medical history of atrial fibrillation, hypertension who presents to the emergency department for fever. Patient was seen in urgent care earlier today and diagnosed with a right leg cellulitis. He took 1 dose of doxycycline but ended up vomiting this up. He developed chills and fever around noon today. This temperature got up to 103. Patient has been feeling mildly short of breath. He denies a cough. He has not been nauseous or vomiting prior to taking the antibiotic. No diarrhea. No rashes elsewhere. No headache or stiff neck. He has been vaccinated for Covid. No known sick contacts. He does have a history of urinary tract infections as he does have prostate issues. He was seen by the urologist yesterday and did not have any issues. Patient states he has had lower leg skin infections before in the past. He believes that this has been staph infections. [facility] Medical History Acute cystitis with hematuria Acute maxillary sinusitis Back pain Bilateral lower extremity edema BPH (benign prostatic hyperplasia) BPH (benign prostatic hyperplasia) Chronic prostatitis Essential (primary) hypertension flu shot Knee pain Paroxysmal atrial fibrillation Phlebitis of superficial vein of right lower extremity Severe sepsis Home Medications dutasteride 0.5 mg capsule 0.5 mg PO DAILY 09/25/18 [History Last Taken 12/21/19] amiodarone 200 mg tablet 200 mg PO DAILY #90 tab 02/04/20 [Rx Last Taken 07/31/20 0800] bisoprolol 5 mg-hydrochlorothiazide 6.25 mg tablet 1 tab PO DAILY #90 tab 02/04/20 [Rx Last Taken Unknown] apixaban [Eliquis] 5 mg PO BID 01/20/21 [History Last Taken Unknown] doxycycline monohydrate 100 mg capsule 100 mg PO BID #20 cap 01/20/21 [Rx Last Taken Unknown] Allergy/AdvReac Type Severity Reaction Status Date / Time No Known Allergies Allergy Verified 01/20/21 12:30 Family History (Updated 01/21/21 @ 00:32 by LESLEY Harrison) Mother Myocardial infarction Father Colon cancer Sister Myocardial infarction Surgical History History of left heart catheterization (2011) History of prostatectomy Social History Smoking Status: Former smoker alcohol intake: current alcohol intake frequency: holidays/special occasions only ROS ROS ED Constitutional Constitutional ED: Reports chills and fever(s) Eyes Eyes: Denies change in vision ENT ENT ED: Denies epistaxis or rhinorrhea Cardiovascular Cardiovascular: Denies chest pain or palpitations Respiratory/Chest Respiratory/Chest: Reports dyspnea; Denies cough or sputum Gastrointestinal Gastrointestinal: Reports vomiting; Denies abdominal pain, diarrhea or nausea Genitourinary Genitourinary ED: Denies dysuria, hematuria or urinary frequency Musculoskeletal Musculoskeletal: Denies back pain or neck pain Integumentary Reports rash Neurologic Neurologic: Denies dizziness, headache(s) or weakness EXAM Physical Exam Const Vital Signs: 01/20/21 22:15 01/20/21 22:23 01/20/21 23:36 Temperature 101.1 F H 101.1 F H 101.1 F H Temperature Source Oral Oral Oral Pulse Rate 83 90 80 Respiratory Rate 19 H 24 H 17 Blood Pressure 156/91 H 148/82 H 140/72 H Blood Pressure Mean 112 104 94 Pulse Ox 90 91 94 Oxygen Delivery Method Room Air Room Air Nasal Cannula Oxygen Flow Rate (L/min) 2 01/21/21 00:03 Temperature 99.4 F H Temperature Source Oral Pulse Rate 70 Respiratory Rate 20 H Blood Pressure 144/80 H Blood Pressure Mean 101 Pulse Ox 90 Oxygen Delivery Method Nasal Cannula Oxygen Flow Rate (L/min) 2 Positive well nourished and well developed General Appearance ED: well developed and NAD HEENT Reports normocephalic, head/scalp atraumatic and moist mucous membranes Eyes PERRL and EOMs intact bilaterally Neck supple Resp normal respiratory effort and clear to auscultation bilaterally Auscultation: Negative for rales, rhonchi or wheezes Cardio regular rate, regular rhythm and no murmurs GI normal to inspection, nondistended, normoactive bowel sounds and non-tender Palpation: soft; Negative for guarding or rebound tenderness present Back/Spine no CVA tenderness Extremity Extremity Narrative: There is symmetrical pitting edema bilateral lower extremities. General Extremety ED: Negative for tenderness Neuro CN's II-XII intact bilaterally and no sensory deficits noted Sensorium / Orientation: alert Motor Exam: strength 5/5 throughout Psych mental status grossly normal Skin Skin Narrative: Erythema, warmth to right anterior leg. This does stop at the sock line. MDM MDM MDM Narrative Medical decision making narrative: Patient presents the ED for fever. He took 1 dose of doxycycline but vomited this up for a right lower leg cellulitis. On arrival to the ED he is mildly tachypneic and has a fever of 101.1. He satting 90% on room air. He has been feeling mildly short of breath. Will check Covid swab, chest x-ray. He does have obvious source of infection with the right lower extremity cellulitis. He states he does have a history of staph so we will start vancomycin. Urinalysis also being checked as he has a history of UTIs. Blood cultures being obtained prior to antibiotic administration. Patient's lab work did reveal a high white blood cell count. Patient does meet sepsis criteria with this. Lactic acid is within normal limits. He will not require the full 30 cc/kg bolus dosing of crystalloid. His Covid test was negative. Chest x-ray did not reveal any evidence of pneumonia. Patient's oxygen saturation did improve throughout course of ED stay. Urine is still currently pending as he is unable to go at this time. Given the fact patient rapidly developed his fevers and chills and inability to keep his antibiotic down at home will bring him into the hospital for further evaluation and management. Patient understands and is agreeable this plan. He otherwise has remained stable throughout ED stay. Lab Data Labs: Laboratory Results - last 24 hr 01/20/21 01/20/21 01/20/21 22:45 22:45 22:45 WBC 13.0 H RBC 4.96 Hgb 16.1 Hct 47.6 MCV 96.0 H MCH 32.5 H MCHC 33.8 RDW Std Deviation 44.9 H RDW Coeff of Chastity 12.5 Plt Count 195 MPV 12.5 H Immature Gran % (Auto) 1.600 H Neut % (Auto) 89.2 H Lymph % (Auto) 3.9 L Anson % (Auto) 5.1 Eos % (Auto) 0.0 Baso % (Auto) 0.2 Absolute Neuts (auto) 11.6 H Absolute Lymphs (auto) 0.51 L Nucleated RBC % 0 Sodium 138 Potassium 3.7 Chloride 106 Carbon Dioxide 23.0 Anion Gap 9 BUN 20 H Creatinine 1.12 Estim Creat Clear Calc 64.97 Est GFR (MDRD) Af Amer 81 Est GFR (MDRD) Non-Af 67 BUN/Creatinine Ratio 17.9 Glucose 130 H Lactic Acid 1.3 Calcium 8.5 Total Bilirubin 1.00 AST 15 ALT 28 Alkaline Phosphatase 66 Troponin I High Sens 5.9 Total Protein 6.8 Albumin 3.3 Globulin 3.5 Albumin/Globulin Ratio 0.9 Radiography Diagnostic Testing: Radiology Impression Chest X-Ray 01/20/21 23:07 IMPRESSION: Degenerative changes, as described above. No demonstrated acute cardiopulmonary process. Electronically Signed: Jason Davila MD at 23:42 EDT , Service support , Single view portable x-ray interpreted by myself. Clear lung moreland bilaterally. No pleural effusions. Normal cardiac silhouette. Normal mediastinum. Agree with radiologist interpretation. EKG Initial EKG: Attestation: I personally reviewed and interpreted this EKG as follows: (Rate of 84 bpm and normal sinus rhythm. Normal intervals. Left axis deviation. No significant ST elevations or depressions. No T wave abnormalit ies.) Discharge Plan Triage Chief Complaint: Fever ED Provider: Agustín Trevino Dx/Rx/DC Orders Clinical Impression: Sepsis, Cellulitis of lower leg Primary Care Provider: Devyn Montalvo Disposition Disposition: Acute Care [facility]
--- NOTE | 2021-01-20 23:07 | RAD_ITS ---
STUDY: X-RAY CHEST REASON FOR EXAM: Male, 80 years old. CHRONIC LEG INFECTION. FEVER SPIKED TONIGHT. TECHNIQUE: Single AP portable view of the chest. COMPARISON: July 22, 2020 FINDINGS: Reidentification of minor interstitial fibrotic changes of the lungs. There is no demonstrated pleural abnormality. Normal size heart. Normal mediastinum and franklyn. Normal visualized pulmonary arteries. There is atherosclerotic calcification of the aortic arch with tortuosity. There are diffuse degenerative changes of the visualized thoracic spine. Normal visualized ribs, clavicles, and shoulders. There is no demonstrated abnormality of the visualized soft tissue structures of the upper abdomen. RAD/Chest 1 View (Portable) IMPRESSION: Degenerative changes, as described above. No demonstrated acute cardiopulmonary process. Electronically Signed: Jason Davila MD at 23:42 EDT , Service support ,
[2021-01-20 23:20] LABS: Absolute Lymphocyte Count 0.51 X10^3/uL (0.83-4.51); Absolute Neutrophil Count 11.6 X10^3/uL (2.0-7.7); Basophil# 0.03 X10^3/uL; Basophil% 0.2 % (0-1); Hematocrit 47.6 % (40-54); Hemoglobin 16.1 g/dL (13.0-16.5); Lymphocyte # 0.51 X10^3/ul (0.83-4.51); Lymphocyte % 3.9 % (19-41); Mean Corp Hgb Conc 33.8 g/dL (32-36); Mean Corpuscular Hgb 32.5 pg (27.0-32.0); Mean Platelet Vol. 12.5 fl (6.2-12.0); Monocyte# 0.66 X10^3/uL; Monocyte% 5.1 % (0-10); NRBC Flagged by Analyzer 0 % (0-5); Neutrophil # 11.61 X10^3/uL (2.7-7.7); Neutrophil % 89.2 % (47-70); POSITIVE DIFFERENTIAL YES; Platelet Count 195 K/mm3 (150-450); RBC Distribution Width CV 12.5 % (11.6-14.6); RBC Distribution Width SD 44.9 fl (35.1-43.9); Red Blood Count 4.96 M/mm3 (4.6-6.2)
[2021-01-20 23:21] LABS: Differential Indicated SCAN CRITERIA MET
[2021-01-20 23:22] LABS: ALB/GLOB Ratio 0.9 RATIO (0.9-2.4); AST(SGOT) 15 U/L (15-37); Alanine Aminotransfer ALT/SGPT 28 U/L (16-61); Albumin, Serum 3.3 g/dL (3.2-5.0); Alkaline Phosphatase 66 U/L (45-117); Anion Gap 9 (5-15); BUN 20 mg/dL (7-18); BUN/Creat Ratio 17.9 RATIO (10-20); Calcium,Total 8.5 mg/dL (8.5-10.1); Chloride 106 mmol/L (98-107); Creatinine, Serum 1.12 mg/dL (0.70-1.30); EST Glomerular Filtration Rate 67 mL/min (>60); Est Glom Filt Rate - Afr Amer 81 mL/min (>60); Estimated Creatinine Clearance 64.97 ml/min; Globulin 3.5 g/dL (2.2-4.2); Glucose 130 mg/dL (74-106); Potassium 3.7 mmol/L (3.5-5.1); Protein, Total 6.8 g/dL (6.4-8.2); Sodium Level 138 mmol/L (136-145); Troponin-I HS 5.9 pg/mL (3.0-78.5)
[2021-01-20] MEDS: Acetaminophen 325 MG Tablet 650 MG PO (23:33)
[2021-01-20 23:36] VITALS: BP 140/72; PULSE 80; PULSE 85; RESP 17; RESP 23; TEMP 38.4; O2SAT 94
[2021-01-20 23:48] LABS: Lactic Acid 1.3 mmol/L (0.4-1.9)
[2021-01-21] VITALS (9 sets, daily range): BP systolic 133–150; BP diastolic 63–80; PULSE 59–70; RESP 14–20; TEMP 36.5–37.4; O2SAT 90–97; BMI 29.0
--- NOTE | 2021-01-21 00:22 | HP.PCM_ITS ---
Documented by User: LESLEY Harrison 01/21/21 00:46 HPI - General General Date of Admission: 01/21/21 Date of Service: 01/21/21 Chief Complaint: Right lower leg cellulitis HPI Narrative ERIN YAÑEZ, is a 80 M who presents with complaints of right leg swelling, redness and warmth. Patient states he woke up today and took a shower and that is when he noticed the redness and swelling. Patient states that he has chronic swelling to his bilateral legs however his right leg is much more swollen than usual. Patient also states that he has had a fever. Patient reports that he went to urgent care earlier today to be seen for his right leg concerns and was given doxycycline which he immediately threw up after taking first dose and that is when he decided to come to the ER. [facility] Medical History Acute cystitis with hematuria Acute maxillary sinusitis Back pain Bilateral lower extremity edema BPH (benign prostatic hyperplasia) BPH (benign prostatic hyperplasia) Chronic prostatitis Essential (primary) hypertension flu shot Knee pain Paroxysmal atrial fibrillation Phlebitis of superficial vein of right lower extremity Severe sepsis Home Medications dutasteride 0.5 mg capsule 0.5 mg PO DAILY 09/25/18 [History Last Taken 12/21/19] amiodarone 200 mg tablet 200 mg PO DAILY #90 tab 02/04/20 [Rx Last Taken 07/31/20 0800] bisoprolol 5 mg-hydrochlorothiazide 6.25 mg tablet 1 tab PO DAILY #90 tab 02/04/20 [Rx Last Taken Unknown] apixaban [Eliquis] 5 mg PO BID 01/20/21 [History Last Taken Unknown] doxycycline monohydrate 100 mg capsule 100 mg PO BID #20 cap 01/20/21 [Rx Last Taken Unknown] Allergy/AdvReac Type Severity Reaction Status Date / Time No Known Allergies Allergy Verified 01/20/21 12:30 Family History (Updated 01/21/21 @ 00:32 by LESLEY Harrison) Mother Myocardial infarction Father Colon cancer Sister Myocardial infarction Surgical History History of left heart catheterization (2011) History of prostatectomy Social History Smoking Status: Former smoker alcohol intake: current alcohol intake frequency: holidays/special occasions only ROS Constitutional Constitutional: Reports chills and fever(s); Denies anorexia, malaise or weakness Cardiovascular Cardiovascular: Reports edema; Denies chest pain or palpitations Respiratory/Chest Respiratory/Chest: Denies cough, shortness of breath at rest or shortness of breath with exertion Gastrointestinal Gastrointestinal: Denies abdominal pain, constipation, diarrhea, nausea or vomiting Genitourinary Genitourinary: Denies dysuria or hematuria Musculoskeletal Musculoskeletal: Reports extremity pain; Denies back pain, joint pain or joint stiffness Integumentary Integumentary: Reports rash; Denies dry skin Neurologic Neurologic: Denies abnormal gait, abnormal speech, confusion, dizziness or focal weakness Psychiatric Psychiatric: Denies anxiety or depression Endocrine Endocrinology: Denies change in body appearance Hematologic/Lymphatic Hematologic/Lymphatic: Denies easy bleeding or easy bruising Vital Signs Vital Signs Vital Signs: 01/20/21 22:15 01/20/21 22:23 01/20/21 23:36 Temperature 101.1 F H 101.1 F H 101.1 F H Temperature Source Oral Oral Oral Pulse Rate 83 90 80 Respiratory Rate 19 H 24 H 17 Blood Pressure 156/91 H 148/82 H 140/72 H Blood Pressure Mean 112 104 94 Pulse Ox 90 91 94 Oxygen Delivery Method Room Air Room Air Nasal Cannula Oxygen Flow Rate (L/min) 2 Weight Weight: 239 lb 3.225 oz Body Mass Index (BMI) 29.9 Physical Exam Const alert and oriented x3 General Appearance: cooperative HEENT normocephalic and head/scalp atraumatic Eyes conjunctivae normal and no scleral icterus Neck supple and no JVD General: trachea midline Resp normal respiratory effort, normal air movement and clear to auscultation bilaterally Cardio regular rate, regular rhythm, S1 normal heart sound and S2 normal heart sound GI normal to inspection, nondistended, normoactive bowel sounds, soft to palpation and non-tender Extremity General Extremity: edema right lower extremity severe and left lower extremity mild and no tenderness to palpation of joints or extremities Peripheral Pulses: Yes pulses 2+ throughout Skin General Skin Exam: turgor normal Rashes: rashes noted Right lower leg maculopapular erythematous Yes soft wet, draining, shiny and warm surrounding erythema nontender cellulitis Neuro no focal motor deficits and no sensory deficits noted Speech: speech normal Motor Exam: Negative for general weakness Psych thought process normal, cooperative and affect normal Appearance: appropriate Results Lab / Micro Data Result Diagrams: 01/20/21 22:45 01/20/21 22:45 Labs: Laboratory Results - last 24 hr 01/20/21 22:45: WBC 13.0 H, RBC 4.96, Hgb 16.1, Hct 47.6, MCV 96.0 H, MCH 32.5 H , MCHC 33.8, RDW Std Deviation 44.9 H, RDW Coeff of Chastity 12.5, Plt Count 195, MPV 12.5 H, Immature Gran % (Auto) 1.600 H, Neut % (Auto) 89.2 H, Lymph % (Auto) 3.9 L, Martin % (Auto) 5.1, Eos % (Auto) 0.0, Baso % (Auto) 0.2, Absolute Neuts (auto) 11.6 H, Absolute Lymphs (auto) 0.51 L, Nucleated RBC % 0 01/20/21 22:45: Sodium 138, Potassium 3.7, Chloride 106, Carbon Dioxide 23.0, Anion Gap 9, BUN 20 H, Creatinine 1.12, Estim Creat Clear Calc 64.97, Est GFR (MDRD) Af Amer 81, Est GFR (MDRD) Non-Af 67, BUN/Creatinine Ratio 17.9, Glucose 130 H, Calcium 8.5, Total Bilirubin 1.00, AST 15, ALT 28, Alkaline Phosphatase 66, Troponin I High Sens 5.9, Total Protein 6.8, Albumin 3.3, Globulin 3.5, Albumin/Globulin Ratio 0.9 01/20/21 22:45: Lactic Acid 1.3 Micro: Microbiology 01/20/21 22:56 Mucosa - Nasopharyngeal SARS-CoV-2 Antigen (Rapid) - Final Radiology Impression Chest X-Ray 01/20/21 23:07 IMPRESSION: Degenerative changes, as described above. No demonstrated acute cardiopulmonary process. Electronically Signed: Jason Davila MD at 23:42 EDT , Service support , Assessment & Plan Assessment/Plan (1) Cellulitis of right lower extremity: (2) Bilateral lower extremity edema: PLAN: 1. Cellulitis of right lower extremity -Admit to [facility] -Patient received first dose vancomycin in ER will continue -Elevate bilateral lower extremities while in bed or in chair -CBC and CMP ordered for a.m. -O2 per protocol, patient hypoxic on arrival, currently on 2 L. Covid negative and patient is fully vaccinated. 2. Bilateral lower extremity edema -Right worse than left -Edgardo wraps bilateral lower extremities -Elevate bilateral lower extremities while in bed or in chair -Daily weights 3. Hypertension -Vital signs per protocol, trend BP -Continue bisoprolol hydrochlorothiazide -As needed hydralazine ordered for systolic blood pressure greater than 160 4. BPH -Continue dutasteride -UA pending, patient has history of frequent UTIs due to BPH however patient was just seen on Monday by Dr. Salinas and UA was normal at that time 5. Paroxysmal A. fib -Continue Eliquis and amiodarone DVT prophylaxis-SCDs This patient was seen by LESLEY Harrison under the supervision of Dr. García. Documented by User: Dr. Fani García MD 01/21/21 00:47 HPI - General General Date of Admission: 01/21/21 [facility] Medical History Acute cystitis with hematuria Acute maxillary sinusitis Back pain Bilateral lower extremity edema BPH (benign prostatic hyperplasia) BPH (benign prostatic hyperplasia) Chronic prostatitis Essential (primary) hypertension flu shot Knee pain Paroxysmal atrial fibrillation Phlebitis of superficial vein of right lower extremity Severe sepsis Home Medications dutasteride 0.5 mg capsule 0.5 mg PO DAILY 09/25/18 [History Last Taken 12/21/19] amiodarone 200 mg tablet 200 mg PO DAILY #90 tab 02/04/20 [Rx Last Taken 07/31/20 0800] bisoprolol 5 mg-hydrochlorothiazide 6.25 mg tablet 1 tab PO DAILY #90 tab 02/04/20 [Rx Last Taken Unknown] apixaban [Eliquis] 5 mg PO BID 01/20/21 [History Last Taken Unknown] doxycycline monohydrate 100 mg capsule 100 mg PO BID #20 cap 01/20/21 [Rx Last Taken Unknown] Allergy/AdvReac Type Severity Reaction Status Date / Time No Known Allergies Allergy Verified 01/20/21 12:30 Family History (Updated 01/21/21 @ 00:32 by CHUNG HarrisonC) Mother Myocardial infarction Father Colon cancer Sister Myocardial infarction Surgical History History of left heart catheterization (2011) History of prostatectomy Social History Smoking Status: Former smoker alcohol intake: current alcohol intake frequency: holidays/special occasions only Results Lab / Micro Data Result Diagrams: 01/20/21 22:45 01/20/21 22:45
--- NOTE | 2021-01-21 00:42 | ED.RN ---
PT UNABLE TO URINATE IN ED. DR CARLISLE AWARE. NO ORDER TO STRAIGHT CATH AT THIS TIME.
[2021-01-21] MEDS: 0.9% Normal Saline 1,000 ML 100 ML IV ×3 (01:26→22:21)
[2021-01-21] MEDS: oxyCODONE 5 MG Tablet PO (01:48)
[2021-01-21 01:57] LABS: Mucous, Urine 0 SEEN /hpf (<or=2+); Squamous Epithelial Cells - UA 0 SEEN /hpf (0-5); White Blood Cells 0 SEEN /hpf (0-5)
[2021-01-21 01:59] LABS: Color, Urine Yellow (Yellow); Glucose, Dipstick 50 mg/dl (Normal); Ketone-Dipstick 5 mg/dl (Negative); Leukocyte Esterase-Dipstick Negative /ul (Negative); Nitrite-Dipstick Negative (Negative); Occult Blood-Urine 10 /ul (Negative); Protein-Dipstick 15 mg/dl (Negative); Specific Gravity, Urine 1.015 (1.002-1.030); Urine Bilirubin Dipstick Negative (Negative); Urine Clarity Clear (Clear); Urine Urobilinogen 4 mg/dl (Normal)
--- NOTE | 2021-01-21 02:09 | PCM.RX.CS ---
Consult Pharmacy has been consulted to manage selected antiobiotic: Vancomycin Type of Consult: New start Suspected Infection: Sepsis Labs: Sodium 138 mmol/L (136-145) 01/20/21 22:45 Potassium 3.7 mmol/L (3.5-5.1) 01/20/21 22:45 Chloride 106 mmol/L (98-107) 01/20/21 22:45 Carbon Dioxide 23.0 mmol/L (21.0-32.0) 01/20/21 22:45 Anion Gap 9 (5-15) 01/20/21 22:45 BUN 20 mg/dL (7-18) H 01/20/21 22:45 Creatinine 1.12 mg/dL (0.70-1.30) 01/20/21 22:45 Est GFR (MDRD) Af Amer 81 mL/min (>60) 01/20/21 22:45 Est GFR (MDRD) Non-Af 67 mL/min (>60) 01/20/21 22:45 BUN/Creatinine Ratio 17.9 RATIO (10-20) 01/20/21 22:45 Glucose 130 mg/dL (74-106) H 01/20/21 22:45 Microbiology: Microbiology 01/20/21 22:56 Mucosa - Nasopharyngeal SARS-CoV-2 Antigen (Rapid) - Final Goal Trough: 15-20 mcg/mL Pharmacy Plan for Drug Dosing: Pharmacy Service will continue to monitor and adjust dosing as required. Medications Vancomycin HCl 1,500 mg/ (Sodium Chloride) 530 mls @ 250 mls/hr IV Q12H MARISA Discontinued Medications Vancomycin HCl 2,000 mg/ (Sodium Chloride) 540 mls @ 250 mls/hr IV X1 ONE Stop: 01/21/21 00:44 Last Admin: 01/21/21 01:08 Dose: Infused Documented by: Follow-Up Labs: Trough Vancomycin Labs to be done on [date and time ordered]: 01/22 @ 1030
[2021-01-21 02:12] LABS: Bacteria RARE /hpf (None Seen); Red Blood Cells-Urine 0-5 SEEN /hpf (0-5)
[2021-01-21 06:35] LABS: Absolute Lymphocyte Count 0.93 X10^3/uL (0.83-4.51); Absolute Neutrophil Count 9.6 X10^3/uL (2.0-7.7); Basophil# 0.01 X10^3/uL; Basophil% 0.1 % (0-1); Eosinophil# 0.01 X10^3/uL; Eosinophils% 0.1 % (0-5); Hematocrit 44.9 % (40-54); Hemoglobin 14.8 g/dL (13.0-16.5); Lymphocyte # 0.93 X10^3/ul (0.83-4.51); Lymphocyte % 8.4 % (19-41); Mean Platelet Vol. 12.3 fl (6.2-12.0); Monocyte# 0.46 X10^3/uL; Monocyte% 4.1 % (0-10); NRBC Flagged by Analyzer 0 % (0-5); Neutrophil # 9.61 X10^3/uL (2.7-7.7); Neutrophil % 86.7 % (47-70); Platelet Count 161 K/mm3 (150-450); RBC Distribution Width CV 12.8 % (11.6-14.6); RBC Distribution Width SD 45.9 fl (35.1-43.9); Red Blood Count 4.63 M/mm3 (4.6-6.2); White Blood Count 11.1 K/mm3 (4.4-11.0)
[2021-01-21 07:02] LABS: ALB/GLOB Ratio 0.9 RATIO (0.9-2.4); AST(SGOT) 13 U/L (15-37); Alanine Aminotransfer ALT/SGPT 24 U/L (16-61); Albumin, Serum 2.8 g/dL (3.2-5.0); Alkaline Phosphatase 58 U/L (45-117); Anion Gap 6 (5-15); BUN 17 mg/dL (7-18); BUN/Creat Ratio 17.4 RATIO (10-20); Chloride 107 mmol/L (98-107); Creatinine, Serum 0.98 mg/dL (0.70-1.30); EST Glomerular Filtration Rate 79 mL/min (>60); Est Glom Filt Rate - Afr Amer 96 mL/min (>60); Estimated Creatinine Clearance 74.25 ml/min; Globulin 3.1 g/dL (2.2-4.2); Glucose 106 mg/dL (74-106); Potassium 3.9 mmol/L (3.5-5.1); Protein, Total 5.9 g/dL (6.4-8.2); Sodium Level 139 mmol/L (136-145)
[2021-01-21 08:08] LABS: Hemoglobin A1c 5.6 % (3.8-5.6)
[2021-01-21] MEDS: APIXABAN 5 MG TABLET PO ×2 (08:24→22:13)
[2021-01-21] MEDS: Finasteride 5 MG Tablet PO (08:24)
[2021-01-21] MEDS: Amiodarone 200 MG Tablet PO (08:24)
[2021-01-21] MEDS: hydroCHLOROthiazide 6.25mg TAB 6.25 MG PO (08:25)
[2021-01-21] MEDS: Acetaminophen 325 MG Tablet 650 MG PO (08:26)
[2021-01-21] MEDS: Bisoprolol Fumarate 5 MG Tablet PO (08:26)
--- NOTE | 2021-01-21 12:51 | PN.HOSP_ITS ---
Documented by User: Rahel Armas NP, [employer]-C 01/21/21 13:05 Subjective Subjective Patient seen and examined. Fever improved. Denies right lower extremity pain. Continues to have right lower extremity redness. Complains of bilateral lower extremity swelling following back surgery in July. Objective Data Objective Data Vital Signs: Vital Signs Temp Pulse Resp BP Pulse Ox 98.7 F 59 L 15 136/63 H 96 01/21/21 08:17 01/21/21 08:17 01/21/21 08:17 01/21/21 08:17 01/21/21 08:17 Oxygen Flow Rate (L/min) 2 Oxygen Delivery Method Room Air Weight: 232 lb 9.403 oz Body Mass Index (BMI) 29.0 Intake & Output: Intake and Output for Last 24 Hours 01/19/21 01/20/21 01/21/21 23:59 23:59 23:59 Intake Total 2241.67 / 2241.67 Balance 2241.67 / 2241.67 Lab / Micro Data Result Diagrams: 01/21/21 06:10 01/21/21 06:10 Labs: Laboratory Results - last 24 hr 01/20/21 22:45: WBC 13.0 H, RBC 4.96, Hgb 16.1, Hct 47.6, MCV 96.0 H, MCH 32.5 H , MCHC 33.8, RDW Std Deviation 44.9 H, RDW Coeff of Chastity 12.5, Plt Count 195, MPV 12.5 H, Immature Gran % (Auto) 1.600 H, Neut % (Auto) 89.2 H, Lymph % (Auto) 3.9 L, Clarke % (Auto) 5.1, Eos % (Auto) 0.0, Baso % (Auto) 0.2, Absolute Neuts (auto) 11.6 H, Absolute Lymphs (auto) 0.51 L, Nucleated RBC % 0 01/20/21 22:45: Sodium 138, Potassium 3.7, Chloride 106, Carbon Dioxide 23.0, Anion Gap 9, BUN 20 H, Creatinine 1.12, Estim Creat Clear Calc 64.97, Est GFR (MDRD) Af Amer 81, Est GFR (MDRD) Non-Af 67, BUN/Creatinine Ratio 17.9, Glucose 130 H, Calcium 8.5, Total Bilirubin 1.00, AST 15, ALT 28, Alkaline Phosphatase 66, Troponin I High Sens 5.9, Total Protein 6.8, Albumin 3.3, Globulin 3.5, Albumin/Globulin Ratio 0.9 01/20/21 22:45: Lactic Acid 1.3 01/21/21 01:45: Urine Color Yellow, Urine Clarity Clear, Urine pH 5.0, Ur Specific Epworth 1.015, Urine Protein 15 H, Urine Glucose (UA) 50 H, Urine Ketones 5 H, Urine Occult Blood 10 H, Urine Nitrite Negative, Urine Bilirubin Negative, Urine Urobilinogen 4 H, Ur Leukocyte Esterase Negative, Urine RBC 0-5 SEEN, Urine WBC 0 SEEN, Ur Squamous Epith Cells 0 SEEN, Urine Bacteria RARE, Urine Mucus 0 SEEN 01/21/21 06:10: WBC 11.1 H, RBC 4.63, Hgb 14.8, Hct 44.9, MCV 97.0 H, MCH 32.0, MCHC 33.0, RDW Std Deviation 45.9 H, RDW Coeff of Chastity 12.8, Plt Count 161, MPV 12.3 H, Immature Gran % (Auto) 0.600, Neut % (Auto) 86.7 H, Lymph % (Auto) 8.4 L , Clarke % (Auto) 4.1, Eos % (Auto) 0.1, Baso % (Auto) 0.1, Absolute Neuts (auto) 9.6 H, Absolute Lymphs (auto) 0.93, Nucleated RBC % 0 01/21/21 06:10: Sodium 139, Potassium 3.9, Chloride 107, Carbon Dioxide 26.0, Anion Gap 6, BUN 17, Creatinine 0.98, Estim Creat Clear Calc 74.25, Est GFR (MDRD) Af Amer 96, Est GFR (MDRD) Non-Af 79, BUN/Creatinine Ratio 17.4, Glucose 106, Calcium 8.0 L, Total Bilirubin 1.00, AST 13 L, ALT 24, Alkaline Phosphatase 58, Total Protein 5.9 L, Albumin 2.8 L, Globulin 3.1, Albumin/Globulin Ratio 0.9 01/21/21 06:10: Hemoglobin A1c 5.6 Micro: Microbiology 01/20/21 22:45 Blood Culture (Wb) - Anticubital Left Blood Culture - Preliminary 01/20/21 22:56 Mucosa - Nasopharyngeal SARS-CoV-2 Antigen (Rapid) - Final Radiography Diagnostic Testing: Radiology Impression Chest X-Ray 01/20/21 23:07 IMPRESSION: Degenerative changes, as described above. No demonstrated acute cardiopulmonary process. Electronically Signed: Jason Davila MD at 23:42 EDT , Service support , Physical Exam Const alert, oriented x3 and no apparent distress Orientation / Consciousness: awake, oriented to person, oriented to place and or iented to time HEENT normocephalic and moist oral mucous membranes Eyes PERRL, EOMs intact bilaterally and conjunctivae normal Neck no lymphadenopathy Resp normal respiratory effort and clear to auscultation bilaterally Cardio regular rate, regular rhythm and no murmurs Peripheral Pulses: pulses 2+ throughout GI normal to inspection, nondistended, normoactive bowel sounds, non-tender and non-distended Extremity normal to inspection General Extremity: edema bilateral lower extremity Details: mild Skin no rashes or lesions noted Skin Narrative: Right lower extremity diffuse erythema, area marked. Edgardo wraps in place. Lesions: no lesions Rashes: no rashes Trauma: no lacerations or abrasions Neuro CN's II-XII intact bilaterally, no focal motor deficits, no sensory deficits not ed and deep tendon reflexes 2+ bilaterally Psych mental status grossly normal and affect normal Assessment & Plan Assessment/Plan (1) Cellulitis of right lower extremity: (2) Sepsis: PLAN: 1. Sepsis secondary to right lower extremity cellulitis with associated bacteremia-on IV vancomycin. Blood culture 1 out of 2 preliminary growing gram-positive cocci. Follow cultures. Fever improved. Patient has a history of right lower extremity wound/cellulitis which grew staph. 2. Chronic bilateral lower extremity venous stasis/edema-patient reports worsened following back surgery in July. Edgardo wraps bilateral lower extremities. 3. Acute hypoxic respiratory insufficiency-suspect secondary to #1. Hypoxia resolved. Chest x-ray unremarkable. 4. BPH-on dutasteride. 5. Paroxysmal atrial fibrillation-on Eliquis, beta-sara, amiodarone. 6. Hypertension-on beta-sara, HCTZ. DVT prophylaxis- Eliquis This patient was seen by LESLEY Aguirre under the supervision of Dr. Beltre. Documented by User: Dr. Vel Beltre MD 01/21/21 13:34 Objective Data Lab / Micro Data Result Diagrams: 01/21/21 06:10 01/21/21 06:10 Assessment & Plan Addt'l Comments This patient was seen in conjunction with LESLEY Aguirre . I have independently interviewed and examined the patient and reviewed pertinent historical, laboratory, and other data. Please refer to LESLEY Aguirre note for details of this patient's presentation, findings, and recommendations. I have reviewed LESLEY Aguirre note and concur with documented findings. In brief, patient is a 80-year-old gentleman with history of bilateral venous stasis involving both lower extremities presented with erythema and warmth. An assessment of sepsis secondary to right lower extremity cellulitis made. Admitted to monitored bed for subsequent management Physical Examination: GENERAL: cooperative HEENT: Atraumatic; EYES; Anicteric, Normal Conjunctiva NECK; supple, normal thyroid, RESPIRATORY: Diminished to auscultation CARDIOVASCULAR: Regular S1 S2, GI: soft, normoactive bowel sounds, : No Renal angle tenderness; PSYCH; Flat affect Assessment: 1. Sepsis secondary to right lower extremity cellulitis 2. Bacteremia 3. Acute respiratory insufficiency 4. Bilateral stasis dermatitis 5. Paroxysmal A. fib 6. BPH 7. Hypertension 8. DVT prophylaxis Recommendations: 1. I have discussed the results of my overview and impressions with the patient 2. Options for management were reviewed Charges/Coding Visit Charges Inpatient E&M: 60444 Subs Hosp L3
--- NOTE | 2021-01-21 13:10 | CASEMGMT ---
LINH MONTES assessment: Face to Face with patient for initial transition planning/care coordination assessment. LINH MONTES introduced self and role at [facility], pt voices understanding and consents to assessment. Pt is sitting up in bed in no distress. Pt is A/Ox4 and answers all questions appropriately. Care providers, pharmacy, and demographics verified/updated. Presentation: pt states chronic leg infection, seen at [facility], placed on antibx-[facility] w/ fever Admitting dx: Sepsis, RLE cellulitis PCP: Katia Specialists: Obed, cardio; [place]yenne, uro; Solano, ortho Preferred Pharmacy: [facility] Insurance: [facility] A/B, [place] Prescription Benefit: [place] Living Will/HPOA: Pt states has LW/HPOA and is aware that they are not on file but states was planning on bringing in. Pt states , Latoya Garces, is HPOA and son, Steve Garces, is secondary HPOA. LNOK: Latoya Garces, ; Steve Garces, son Living Arrangements: Pt lives with in 1 story home with no steps in and states no concerns at home. Pt states is independent with ADL's. Transportation: Pt states drives self and states no transportation concerns. DME/HHC: Pt states has a walker at home but no longer uses. Pt states no need for any further DME. Pt states no hx of HHC or SNF. Pt states no concerns with going home at time of discharge. Pt states is retired. Pt states does not smoke cigarettes but does occasionally drink ETOH. Pt states no further concerns/needs. CM to follow for any further discharge planning/needs. Advised pt to ask for CM if any further questions/concerns/needs arise, voices understanding. Pt Goal: Home Plan[place] LINH MONTES
[2021-01-22 02:31] VITALS: BP 150/68; PULSE 65; RESP 18; TEMP 37.5; O2SAT 95
[2021-01-22 06:14] LABS: Absolute Lymphocyte Count 1.11 X10^3/uL (0.83-4.51); Absolute Neutrophil Count 5.1 X10^3/uL (2.0-7.7); Basophil# 0.02 X10^3/uL; Basophil% 0.3 % (0-1); Eosinophil# 0.09 X10^3/uL; Eosinophils% 1.3 % (0-5); Hematocrit 42.1 % (40-54); Hemoglobin 13.8 g/dL (13.0-16.5); Lymphocyte # 1.11 X10^3/ul (0.83-4.51); Lymphocyte % 15.5 % (19-41); Mean Corp Hgb Conc 32.8 g/dL (32-36); Mean Corpuscular Hgb 31.8 pg (27.0-32.0); Mean Platelet Vol. 12.4 fl (6.2-12.0); Monocyte# 0.79 X10^3/uL; NRBC Flagged by Analyzer 0 % (0-5); Neutrophil # 5.12 X10^3/uL (2.7-7.7); Neutrophil % 71.3 % (47-70); Platelet Count 154 K/mm3 (150-450); RBC Distribution Width CV 12.8 % (11.6-14.6); RBC Distribution Width SD 45.8 fl (35.1-43.9); Red Blood Count 4.34 M/mm3 (4.6-6.2); White Blood Count 7.2 K/mm3 (4.4-11.0)
[2021-01-22] MEDS: 0.9% Normal Saline 1,000 ML 100 ML IV (07:16)
[2021-01-22] MEDS: oxyCODONE 5 MG Tablet PO (07:16)
[2021-01-22 07:54] VITALS: O2SAT 91
[2021-01-22 10:44] VITALS: BP 147/74; PULSE 57; RESP 14; TEMP 37; O2SAT 94
[2021-01-22] MEDS: Finasteride 5 MG Tablet PO (10:49)
[2021-01-22] MEDS: hydroCHLOROthiazide 6.25mg TAB 6.25 MG PO (10:49)
[2021-01-22] MEDS: APIXABAN 5 MG TABLET PO (10:49)
[2021-01-22] MEDS: Amiodarone 200 MG Tablet PO (10:49)
[2021-01-22] MEDS: Bisoprolol Fumarate 5 MG Tablet PO (10:49)
[2021-01-22] MEDS: 0.9% Saline Lock 10 ML Syringe IV (10:50)
[2021-01-22 11:33] LABS: Vancomycin, Trough Level 17.9 ug/mL (5.0-15.0)
--- NOTE | 2021-01-22 12:34 | PCM.DC ---
Discharge Instructions Diet Discharge Diet: No restrictions Activity Discharge Activity: Return to Normal Activity Dressing / Incision Call your doctor if you observe: Fever of 101 or Higher, Shortness of breath, Dizziness and Chest pain Follow Up Care Test Results: Test results from this visit will be discussed in further detail at your follow-up appointment, if applicable. Discharge Plan Admission Admit Date/Time: 01/21/21 00:07 Primary Reason for Your Visit: Cellulitis Attending Provider: Vel Beltre Primary Care Provider: Devyn Montalvo Discharge Orders/Prescriptions Prescriptions: New cephalexin 500 mg capsule 500 mg PO Q8H 7 Days Qty: 21 RF: 0 Continued dutasteride 0.5 mg capsule 0.5 mg PO DAILY RF: 0 amiodarone 200 mg tablet 200 mg PO DAILY Qty: 90 RF: 3 bisoprolol 5 mg-hydrochlorothiazide 6.25 mg tablet 5-6.25 mg tablet 1 tab PO DAILY Qty: 90 RF: 3 Eliquis 5 mg tablet 5 mg PO BID RF: 0 Discontinued doxycycline monohydrate 100 mg capsule 100 mg PO BID Qty: 20 RF: 0 Referrals / Follow Up: Devyn Montalvo DO [Primary Care Provider] - See Referral Note (in 3 days ) Disposition Disposition (needs filled in before D/C Order can be placed): Home, Self Care
--- NOTE | 2021-01-22 12:43 | DS.PCM_ITS ---
Documented by User: Rahel Armas NP, [employer]-C 01/22/21 12:48 Providers Date of Admission: 01/21/21 Date of Discharge: 01/22/21 Primary Care Physician: Dr. Devyn Montalvo DO Reason For Visit: SEPSIS, CELLULITIS RLE Diagnosis Discharge Diagnosis (1) Cellulitis of right lower extremity: Status: Acute Code(s): L03.115 - Cellulitis of right lower limb (2) Sepsis: Status: Acute Code(s): A41.9 - Sepsis, unspecified organism Medications at Discharge Home Medications dutasteride 0.5 mg capsule 0.5 mg PO DAILY 09/25/18 amiodarone 200 mg tablet 200 mg PO DAILY #90 tab 02/04/20 bisoprolol 5 mg-hydrochlorothiazide 6.25 mg tablet 1 tab PO DAILY #90 tab 02/04/20 Eliquis 5 mg PO BID 01/20/21 cephalexin 500 mg PO Q8H 7 Days #21 cap 01/22/21 Hospital Course Operations None Procedures None Summary of Care Provided Minutes Spent on Discharge: 35 Hospital Course: Patient is a 80-year-old male admitted 01/21/2021 due to fever, right lower extremity redness. 1. Sepsis secondary to right lower extremity cellulitis with associated bacteremia-Blood culture 1 out of 2 growing strep group B. Fever and leukocytosis resolved. Transition to Keflex at discharge to complete course. Recommended waiting for final cultures and sensitivities however patient requesting discharge home. Will follow final cultures at discharge and follow- up if any antibiotic changes. Follow-up with PCP in 3 to 5 days. 2. Chronic bilateral lower extremity venous stasis/edema-patient reports worsened following back surgery in July. Edgardo wraps bilateral lower extremities. 3. Acute hypoxic respiratory insufficiency-suspect secondary to #1. Hypoxia resolved. Chest x-ray unremarkable. 4. BPH-on dutasteride. 5. Paroxysmal atrial fibrillation-on Eliquis, beta-sara, amiodarone. 6. Hypertension-on beta-sara, HCTZ. Physical Exam Const alert, oriented x3 and no apparent distress Orientation / Consciousness: awake, oriented to person, oriented to place and oriented to time HEENT normocephalic and moist oral mucous membranes Eyes PERRL, EOMs intact bilaterally and conjunctivae normal Neck no lymphadenopathy Resp normal respiratory effort and clear to auscultation bilaterally Cardio regular rate, regular rhythm and no murmurs Peripheral Pulses: pulses 2+ throughout GI normal to inspection, nondistended, normoactive bowel sounds, non-tender and non-distended Extremity normal to inspection General Extremity: edema bilateral lower extremity Details: mild Skin no rashes or lesions noted Skin Narrative: Right lower extremity diffuse erythema, area marked. Edgardo wraps in place. Lesions: no lesions Rashes: no rashes Trauma: no lacerations or abrasions Neuro CN's II-XII intact bilaterally, no focal motor deficits, no sensory deficits noted and deep tendon reflexes 2+ bilaterally Psych mental status grossly normal and affect normal Patient seen and examined prior to discharge. Physical assessment as noted above. Patient is stable for discharge with follow up recommendations as noted above. This patient was seen by LESLEY Aguirre under the supervision of Dr. Beltre. Medical Records Data Medical Nutrition Assessment Dietitian: Nutrition Therapy Diagnosis Start: 01/21/21 14:00 Freq: Status: Active Protocol: Document 01/21/21 14:00 (Rec: 01/21/21 14:01 [id number]) Nutrition Malnutrition Evidence of Malnutrition Exists No Recommendation Dietitian Recommendations/Changes Continue cardiac heart healthy diet. Add nutrition supplements if intake fails at meals. Weight / BMI Weight Weight: 237 lb 10.533 oz Body Mass Index (BMI) 29.0 ABG / Lab / Microbiology Data Result Diagrams: 01/22/21 05:58 01/21/21 06:10 Laboratory: Laboratory Results - last 24 hr 01/22/21 05:58: WBC 7.2, RBC 4.34 L, Hgb 13.8, Hct 42.1, MCV 97.0 H, MCH 31.8, MCHC 32.8, RDW Std Deviation 45.8 H, RDW Coeff of Chastity 12.8, Plt Count 154, MPV 12.4 H, Immature Gran % (Auto) 0.600, Neut % (Auto) 71.3 H, Lymph % (Auto) 15.5 L, Motley % (Auto) 11.0 H, Eos % (Auto) 1.3, Baso % (Auto) 0.3, Absolute Neuts (auto) 5.1, Absolute Lymphs (auto) 1.11, Nucleated RBC % 0 01/22/21 10:35: Vancomycin Trough 17.9 H Microbiology: Microbiology 01/20/21 22:45 Blood Culture (Wb) - Anticubital Left Bacteria Detection (PCR) - Final Streptococcus agalactiae (B) 01/20/21 22:45 Blood Culture (Wb) - Anticubital Left Blood Culture - Preliminary Streptococcus group B 01/20/21 22:56 Mucosa - Nasopharyngeal SARS-CoV-2 Antigen (Rapid) - Final D/C Instructions Discharge Diet: No restrictions Call your doctor if you observe: Fever of 101 or Higher, Shortness of breath, Dizziness and Chest pain Meaningful Use Info Meaningful Use Diagnoses (Choose all that apply): None applicable Discharge Plan Admission Admit Date/Time: 01/21/21 00:07 Primary Reason for Your Visit: Cellulitis Attending Provider: Vel Beltre Primary Care Provider: Devyn Montalvo Discharge Orders/Prescriptions Prescriptions: New cephalexin 500 mg capsule 500 mg PO Q8H 7 Days Qty: 21 RF: 0 Continued dutasteride 0.5 mg capsule 0.5 mg PO DAILY RF: 0 amiodarone 200 mg tablet 200 mg PO DAILY Qty: 90 RF: 3 bisoprolol 5 mg-hydrochlorothiazide 6.25 mg tablet 5-6.25 mg tablet 1 tab PO DAILY Qty: 90 RF: 3 Eliquis 5 mg tablet 5 mg PO BID RF: 0 Discontinued doxycycline monohydrate 100 mg capsule 100 mg PO BID Qty: 20 RF: 0 Referrals / Follow Up: Devyn Montalvo DO [Primary Care Provider] - See Referral Note (in 3 days ) Disposition Disposition (needs filled in before D/C Order can be placed): Home, Self Care Documented by User: Dr. Vel Beltre MD 01/22/21 13:00 Providers Date of Admission: 01/21/21 Reason For Visit: SEPSIS, CELLULITIS RLE Medications at Discharge Home Medications dutasteride 0.5 mg capsule 0.5 mg PO DAILY 09/25/18 amiodarone 200 mg tablet 200 mg PO DAILY #90 tab 02/04/20 bisoprolol 5 mg-hydrochlorothiazide 6.25 mg tablet 1 tab PO DAILY #90 tab 02/04/20 Eliquis 5 mg PO BID 01/20/21 cephalexin 500 mg PO Q8H 7 Days #21 cap 01/22/21 Hospital Course Operations None Summary of Care Provided Minutes Spent on Discharge: 35 Hospital Course: This patient was seen in conjunction with CHUNG Aguirre . I have independently interviewed and examined the patient and reviewed pertinent historical, laboratory, and other data. Please refer to LESLEY Aguirre note for details of this patient's presentation, findings, and recommendations. I have reviewed LESLEY Aguirre note and concur with documented findings. In brief, patient is a 80-year-old gentleman with history of bilateral venous stasis involving both lower extremities presented with erythema and warmth. An assessment of sepsis secondary to right lower extremity cellulitis made. Admitted to monitored bed for subsequent management Physical Examination: GENERAL: cooperative HEENT: Atraumatic; EYES; Anicteric, Normal Conjunctiva NECK; supple, normal thyroid, RESPIRATORY: Diminished to auscultation CARDIOVASCULAR: Regular S1 S2, GI: soft, normoactive bowel sounds, : No Renal angle tenderness; PSYCH; Flat affect Assessment: 1. Sepsis secondary to right lower extremity cellulitis 2. Bacteremia 3. Acute respiratory insufficiency 4. Bilateral stasis dermatitis 5. Paroxysmal A. fib 6. BPH 7. Hypertension 8. DVT prophylaxis Hospital course: As documented above ABG / Lab / Microbiology Data Result Diagrams: 01/22/21 05:58 01/21/21 06:10 Discharge Plan Admission Admit Date/Time: 01/21/21 00:07 Primary Reason for Your Visit: Cellulitis Attending Provider: Vel Beltre Primary Care Provider: Devyn Montalvo Discharge Orders/Prescriptions Prescriptions: New cephalexin 500 mg capsule 500 mg PO Q8H 7 Days Qty: 21 RF: 0 Continued dutasteride 0.5 mg capsule 0.5 mg PO DAILY RF: 0 amiodarone 200 mg tablet 200 mg PO DAILY Qty: 90 RF: 3 bisoprolol 5 mg-hydrochlorothiazide 6.25 mg tablet 5-6.25 mg tablet 1 tab PO DAILY Qty: 90 RF: 3 Eliquis 5 mg tablet 5 mg PO BID RF: 0 Discontinued doxycycline monohydrate 100 mg capsule 100 mg PO BID Qty: 20 RF: 0 Referrals / Follow Up: Devyn Montalvo DO [Primary Care Provider] - See Referral Note (in 3 days ) Disposition Disposition (needs filled in before D/C Order can be placed): Home, Self Care Charges/Coding Visit Charges Inpatient E&M: 59820 Disch Hosp Hospital Course Operations None
[2021-01-22 14:08] VITALS: BP 151/73; PULSE 56; RESP 14; TEMP 36.8; O2SAT 95
== END 2021-01-22 14:39 | disposition home or self-care (01) | DRG 872 ==
LOC: ED 01-21 00:04 → PCU 01-21 00:22
PROVIDERS: Nurse Practitioner Family; Admitting Provider Family Medicine; Emergency Provider Emergency Medicine; PCP Family Medicine; Visit Provider Internal Medicine
DX: A41.9 Sepsis, unspecified organism (principal); L03.115 Cellulitis of right lower limb; R09.02 Hypoxemia; R60.0 Localized edema; Z20.822 Contact with and (suspected) exposure to COVID-19; I48.0 Paroxysmal atrial fibrillation; I10 Essential (primary) hypertension; M06.9 Rheumatoid arthritis, unspecified; R73.9 Hyperglycemia, unspecified; I87.2 Venous insufficiency (chronic) (peripheral); I87.8 Other specified disorders of veins; N40.0 Benign prostatic hyperplasia without lower urinary tract symptoms; Z79.01 Long term (current) use of anticoagulants; Z79.899 Other long term (current) drug therapy; Z86.72 Personal history of thrombophlebitis; Z87.891 Personal history of nicotine dependence
CPT/HCPCS: 36415; 71045; 80053; 80202; 81001; 83036; 83605; 84484; 85025; 87040; 87086; 87149; 87186; 87426; 93005; 99251; 99285; J7030; J7040; J7050; A4216; G0463

== ENCOUNTER → 2021-02-11 06:53 | Outpatient (CLI) | payer MEDICARE, BC, SELFPAY ==
[2021-02-02 12:58] VITALS: BMI 29.0
--- NOTE | 2021-02-11 14:19 | PFTCOMP ---
COMPLETE PULMONARY FUNCTION TEST INTERPRETATION Brief HPI: Patient is a 80 year old male, currently under the care of Kimberly Kennedy, who presents to [facility] for complete pulmonary function tests secondary to diagnosis of A. fib. Respiratory therapist reports good effort and reproducible results. Interpretation: Forced expiration spirometry shows a mild large airways obstructive ventilatory defect with an FEV1 of 74% predicted. There is no significant bronchodilator response by strict ATS criteria. Spirograms are of good quality and plateau slowly, indicating slowly emptying areas of the lungs. The respiratory flow volume loop shows decreased expiratory flow rates at high lung volumes consistent with small airways obstruction. Lung volumes by body plethysmography show a normal total lung capacity at 6.37 L, 90% predicted. All other lung volumes are within normal limits. Diffusion capacity by carbon monoxide is decreased at 63% predicted. The airway resistance is normal. Compared to previous pulmonary function tests from 03/23/2020, there is been a significant improvement in lung volumes with a decreased DLCO. Impression: Irreversible mild obstructive ventilatory defect with a symmetric reduction in diffusing capacity and changes compared to 2019.
== END ==
PROVIDERS: PCP Family Medicine; Referring Provider Physician Assistant Medical; Visit Provider Physician Assistant Medical
DX: I48.0 Paroxysmal atrial fibrillation (principal)
CPT/HCPCS: 94060; 94726; 94729

== ENCOUNTER → 2021-06-21 | Outpatient (CLI) | payer MEDICARE, BC, SELFPAY ==
[2021-06-21 15:24] LABS: Bacteria 0 SEEN /hpf (None Seen); Mucous, Urine 0 SEEN /hpf (<or=2+)
[2021-06-21 15:40] LABS: Color, Urine Amber (Yellow); Glucose, Dipstick Normal (Normal); Ketone-Dipstick 5 mg/dl (Negative); Leukocyte Esterase-Dipstick 25 /ul (Negative); Nitrite-Dipstick Negative (Negative); Occult Blood-Urine 250 /ul (Negative); Protein-Dipstick 30 mg/dl (Negative); Urine Bilirubin Dipstick Negative (Negative); Urine Clarity Cloudy (Clear); Urine Urobilinogen 1 mg/dl (Normal)
[2021-06-21 15:52] LABS: Amorphous Sediment 2+; Red Blood Cells-Urine > 100 SEEN /hpf (0-5); Squamous Epithelial Cells - UA 0-5 SEEN /hpf (0-5); White Blood Cells 0-5 SEEN /hpf (0-5)
== END | disposition home or self-care (01) ==
LOC: LABSPEC 15:12
PROVIDERS: PCP Family Medicine; Visit Provider Physician Assistant
DX: N39.0 Urinary tract infection, site not specified (principal); R31.9 Hematuria, unspecified
CPT/HCPCS: 81001; 87086

== ENCOUNTER 2021-07-07 13:05 | Outpatient (CLI) | payer MEDICARE, BC, SELFPAY ==
[2021-07-07 13:10] LABS: Mucous, Urine 0 SEEN /hpf (<or=2+); Squamous Epithelial Cells - UA 0 SEEN /hpf (0-5)
[2021-07-07 13:33] LABS: Color, Urine Yellow (Yellow); Glucose, Dipstick 100 mg/dl (Normal); Ketone-Dipstick Negative (Negative); Leukocyte Esterase-Dipstick 500 /ul (Negative); Nitrite-Dipstick Positive (Negative); Occult Blood-Urine 250 /ul (Negative); Protein-Dipstick 100 mg/dl (Negative); Specific Gravity, Urine 1.015 (1.002-1.030); Urine Bilirubin Dipstick Negative (Negative); Urine Urobilinogen 4 mg/dl (Normal)
[2021-07-07 13:34] LABS: Red Blood Cells-Urine > 100 SEEN /hpf (0-5); Urine Clarity Cloudy (Clear); White Blood Cells >100 SEEN /hpf (0-5)
[2021-07-07 13:35] LABS: Bacteria 1+ /hpf (None Seen)
== END 2021-07-07 23:59 | disposition short-term general hospital (02) ==
LOC: LABSPEC 13:09
PROVIDERS: PCP Family Medicine; Visit Provider Physician Assistant
DX: N39.0 Urinary tract infection, site not specified (principal); R35.0 Frequency of micturition
CPT/HCPCS: 81001; 87086; 87088; 87186

== ENCOUNTER 2021-07-26 09:44 | Outpatient (CLI) | payer MEDICARE, BC, SELFPAY ==
[2021-07-26 09:51] LABS: Mucous, Urine 0 SEEN /hpf (<or=2+); Squamous Epithelial Cells - UA 0 SEEN /hpf (0-5)
[2021-07-26 09:55] LABS: Color, Urine Yellow (Yellow); Glucose, Dipstick Normal (Normal); Ketone-Dipstick Negative (Negative); Leukocyte Esterase-Dipstick 500 /ul (Negative); Nitrite-Dipstick Negative (Negative); Occult Blood-Urine 250 /ul (Negative); Protein-Dipstick 30 mg/dl (Negative); Urine Bilirubin Dipstick Negative (Negative); Urine Clarity Sl. Cloudy (Clear); Urine Urobilinogen 1 mg/dl (Normal)
[2021-07-26 10:42] LABS: Red Blood Cells-Urine 0-5 SEEN /hpf (0-5); White Blood Cells 50-100 SEEN /hpf (0-5)
[2021-07-26 10:43] LABS: Bacteria 4+ /hpf (None Seen)
== END 2021-07-26 23:59 | disposition short-term general hospital (02) ==
LOC: LAB 09:47
PROVIDERS: PCP Family Medicine; Visit Provider Physician Assistant Surgical
DX: N39.0 Urinary tract infection, site not specified (principal); R35.0 Frequency of micturition
CPT/HCPCS: 81001; 87077; 87086; 87088; 87186

== ENCOUNTER 2021-09-08 13:26 | Observation (INO) | payer MEDICARE, BC, SELFPAY ==
[2021-09-06 09:19] LABS: Hematocrit 47.1 % (40-54); Hemoglobin 15.1 g/dL (13.0-16.5); Mean Corp Hgb Conc 32.1 g/dL (32-36); Mean Corpuscular Hgb 31.9 pg (27.0-32.0); Mean Corpuscular Volume 99.4 fL (80-94); Mean Platelet Vol. 11.9 fl (6.2-12.0); Platelet Count 246 K/mm3 (150-450); RBC Distribution Width CV 12.9 % (11.6-14.6); RBC Distribution Width SD 47.5 fl (35.1-43.9); Red Blood Count 4.74 M/mm3 (4.6-6.2)
[2021-09-06 10:23] LABS: Anion Gap 5 (5-15); BUN 16 mg/dL (7-18); BUN/Creat Ratio 13.3 RATIO (10-20); Calcium,Total 8.7 mg/dL (8.5-10.1); Chloride 108 mmol/L (98-107); EST Glomerular Filtration Rate 62 mL/min (>60); Est Glom Filt Rate - Afr Amer 75 mL/min (>60); Glucose 111 mg/dL (74-106); Potassium 4.1 mmol/L (3.5-5.1); Sodium Level 139 mmol/L (136-145)
[2021-09-08] VITALS (9 sets, daily range): BP systolic 128–162; BP diastolic 61–93; PULSE 53–63; RESP 16–18; TEMP 36.2–36.8; O2SAT 92–99; BMI 27.8
--- NOTE | 2021-09-08 | PROS_PTH ---
PATIENT: ERIN YAÑEZ LOC: MS3 U#:[id number] AGE/SX: 81/M ROOM: [facility] [place] RE09/08/[address]: Dr. Perfecto Quinn MD : 1940 BED: 1 DIS: 09/09/2021 SPEC #: [id number] RECD: 09/08/21 14:31 STATUS: MANNY RENDON #: [id number] ELIAS: 09/08/21 00:[address]: Perfecto Quinn DEPT: SURGICAL PATHOLOGY RECD BY: Zander Orr ENTERED: 09/09/21 07:50 SP TYPE: TURP OTHR DR: Dr. Devyn Montalvo, DO Tissues: Prostate, NOS Procedures: Surgery Specimen Level IV HEADER OPERATION: Transurethral resection, prostate with Olympus PRE-OP DIAGNOSIS: BPH with obstruction TISSUE SUBMITTED: Prostate tissue MICROSCOPIC DIAGNOSIS Prostate, transurethral resection: Benign nodular hyperplasia, glandular and stromal types. Chronic inflammation. AM:mojgan 09/10/2021 MICROSCOPIC DESCRIPTION Slides are reviewed. GROSS DESCRIPTION Received is one container labeled with the patient's name and designated prostate tissue. The specimen consists of multiple irregular fragments of pink-prince, rubbery, soft tissue that in aggregate weigh 3.6 gm and measure in aggregate 5 x 3 x 0.3 cm. The entire specimen is submitted in four cassettes. / AM:mojgan 09/09/2021 TC:3 CPT: 97807
[2021-09-08] MEDS: Lactated Ringers 1,000 ML 30 ML IV ×2 (10:15→14:20)
[2021-09-08] MEDS: Cefazolin 2 GM in 0.9% Normal Saline 100 ML IV (11:28)
--- NOTE | 2021-09-08 13:28 | PCM.HP.STD ---
HPI - General HPI Narrative ERIN YAÑEZ, is a 81 M who presents for a TURP [facility] Medical History (Updated 09/01/21 @ 10:40 by Belle Aly) Acute cystitis with hematuria Arthritis Back pain Bilateral lower extremity edema BPH (benign prostatic hyperplasia) Cardiology follow-up encounter Chronic prostatitis CPAP (continuous positive airway pressure) dependence Essential (primary) hypertension Former smoker History of atrial fibrillation History of hiatal hernia Paroxysmal atrial fibrillation Phlebitis of superficial vein of right lower extremity Prostate disease Sleep apnea Urinary tract infection with hematuria Home Medications dutasteride 0.5 mg capsule 0.5 mg PO DAILY 09/25/18 [History Last Taken 12/21/19] amiodarone 200 mg tablet 200 mg PO DAILY #90 tab 02/09/21 [Rx Last Taken 09/08/21] lisinopril 20 mg tablet 20 mg PO DAILY #90 tab 03/02/21 [Rx Last Taken 09/08/21] rivaroxaban 20 mg tablet 20 mg PO DAILY #90 tab 05/31/21 [Rx Last Taken Unknown] bisoprolol-hydrochlorothiazide [Ziac] 1 tab PO DAILY 09/01/21 [History Last Taken Unknown] ciprofloxacin HCl [Cipro] 500 mg PO BID #14 tab 09/08/21 [Rx Last Taken Unknown] Allergy/AdvReac Type Severity Reaction Status Date / Time No Known Allergies Allergy Verified 09/08/21 09:53 Family History Mother Myocardial infarction Father Colon cancer Sister Myocardial infarction Surgical History (Updated 09/01/21 @ 10:09 by Belle Aly) History of eye surgery History of left heart catheterization (2011) History of lumbar discectomy History of prostatectomy Social History Smoking Status: Former smoker alcohol intake: current alcohol intake frequency: holidays/special occasions only Vital Signs Vital Signs Vital Signs: 09/08/21 09:58 Temperature 98.0 F Temperature Source Temporal Pulse Rate 56 L Respiratory Rate 16 Respiratory Pattern Normal Blood Pressure 150/93 H Blood Pressure Mean 112 Blood Pressure Source Monitor Blood Pressure Position Semi-Fowlers Blood Pressure Location Left Arm Pulse Ox 97 Oxygen Delivery Method Room Air Weight Weight: 101 kg Body Mass Index (BMI) 27.8 Results Lab / Micro Data Result Diagrams: 09/06/21 08:50 09/06/21 08:50
--- NOTE | 2021-09-08 13:28 | PCM.DC ---
Discharge Instructions Diet Discharge Diet: No restrictions Activity Discharge Activity: Return to Normal Activity and May Not Drive (while taking narcotic pain medications.) Dressing / Incision Call your doctor if you observe: Fever of 101 or Higher Follow Up Care Please Follow Up With: Perfecto Quinn MD When: Call [phone] for an appointment Test Results: Test results from this visit will be discussed in further detail at your follow-up appointment, if applicable. Discharge Plan Admission Primary Reason for Your Visit: turp Attending Provider: Perfecto Quinn Primary Care Provider: Devyn Montalvo Discharge Orders/Prescriptions Prescriptions: New ciprofloxacin HCl [Cipro] 500 mg tablet 500 mg PO BID Qty: 14 RF: 0 Continued dutasteride 0.5 mg capsule 0.5 mg PO DAILY RF: 0 bisoprolol-hydrochlorothiazide [Ziac] 5-6.25 mg Tablet 1 tab PO DAILY RF: 0 amiodarone 200 mg tablet 200 mg PO DAILY Qty: 90 RF: 3 lisinopril 20 mg tablet 20 mg PO DAILY Qty: 90 RF: 3 Held Xarelto 20 mg tablet 20 mg PO DAILY Qty: 90 RF: 3 Hold Instructions: Resume on 09/20/21. Referrals / Follow Up: Perfecto Quinn MD [STAFF PHYSICIAN] - Devyn Montalvo DO [Primary Care Provider] - Disposition Disposition (needs filled in before D/C Order can be placed): Home, Self Care
--- NOTE | 2021-09-08 13:28 | PCM.OPRPT ---
Report of Operation Date of Procedure: 09/08/21 Pre-Operative Diagnosis: BPH with obstruction Post-Operative Diagnosis: Same Surgery/Procedure Performed:: Transurethral resection of prostate Description of Surgical Findings:: In the preoperative setting I discussed with the patient how the surgery would be done with expect afterwards. We discussed how a prostate resection is done and we discussed the risk of the surgery including, bleeding, infection, retrograde ejaculation, changes with ejaculation or intercourse,. We discussed the possibility that the resection of the prostate may not alleviate his urinary symptoms. We discussed the small risk of developing scar tissue along the urethral channel and strictures. We also discussed the chance of the prostate could grow back and he may need further surgery or treatment in the future for prostate problems. Patient was taken back to the operating room, timeout procedure was performed, he was identified and marked and placed on the operating room table. He underwent general anesthesia. He was placed in dorsolithotomy position. Penis and testicles were prepped and draped in usual sterile fashion. Went into the bladder using the visual obturator with a resectoscope. Once inside the bladder identified the right and left ureteral orifice. I then identified the prostate and the anatomy of the prostate. I marked out the area of the sphincter and the verumontanum was identified. I then proceeded with the prostate resection first resected the median lobe. And then resected the right lobe of the prostate. Then to resect the left lobe of the prostate. I then resected the apical tissue of the prostate. This was a complete resection of all obstructive tissue to improve voiding and relieve obstruction. I then made sure that there was no injury to the sphincter or the verumontanum was still intact. At the end of the resection all the chips were Ellik out of the bladder. I then identified the left and right ureteral orifice and these were confirmed to be in good position and effluxing and not injured. The resectoscope was removed, a 22 Salvadorean catheter was placed into the bladder on continuous irrigation. And the urine was fairly light pink color and draining normally. He was taken back to the PACU in good condition. CPT 73429 Surgeon: Perfecto Quinn Type of Anesthesia: General Drains: 22 Salvadorean three-way Fowler Admit VTE Documentation VTE Present on Admission: No VTE Mechan Device Prophylaxis: SCD's VTE Pharm Prophylaxis ordered?: No
[2021-09-08] MEDS: Ciprofloxacin 500 MG Tablet PO (22:43)
[2021-09-09 03:16] VITALS: BP 147/76; PULSE 61; RESP 16; TEMP 36.6; O2SAT 95
[2021-09-09 06:53] VITALS: BP 129/65; PULSE 62; RESP 16; TEMP 36.5; O2SAT 96
--- NOTE | 2021-09-09 07:39 | PCM.PN.GU ---
Subjective Subjective s/p turp doing well d/c bret bullock Objective Data Objective Data Vital Signs: Vital Signs Temp Pulse Resp BP Pulse Ox 97.7 F L 62 16 129/65 H 96 09/09/21 06:53 09/09/21 06:53 09/09/21 06:53 09/09/21 06:53 09/09/21 06:53 Oxygen Flow Rate (L/min) 2 Oxygen Delivery Method Nasal Cannula Weight: 101 kg Body Mass Index (BMI) 27.8 Intake & Output: Intake and Output for Last 24 Hours 09/07/21 09/08/21 09/09/21 23:59 23:59 23:59 Intake Total 1110 / 1110 497.5 / 497.5 Output Total 800 / 800 1150 / 1150 Balance 310 / 310 -652.5 / -652.5 Lab / Micro Data Result Diagrams: 09/06/21 08:50 09/06/21 08:50 Micro: Microbiology 09/06/21 08:36 Nasal Secretion SARS-CoV-2 Antigen (Rapid) - Final
[2021-09-09] MEDS: hydroCHLOROthiazide 6.25mg TAB 6.25 MG PO (10:14)
[2021-09-09] MEDS: Ciprofloxacin 500 MG Tablet PO (10:14)
[2021-09-09] MEDS: Bisoprolol Fumarate 5 MG Tablet PO (10:14)
[2021-09-09] MEDS: Amiodarone 200 MG Tablet PO (10:14)
[2021-09-09] MEDS: Lisinopril 20 MG Tablet PO (10:14)
[2021-09-09 10:18] VITALS: BP 120/58; PULSE 62; RESP 18; TEMP 37.1; O2SAT 96
[2021-09-09 14:30] VITALS: BP 97/54; PULSE 60; RESP 18; TEMP 36.9; O2SAT 94
== END 2021-09-09 15:10 | disposition home or self-care (01) ==
LOC: SDC 16:02 → MS3 16:02
PROVIDERS: Anesthesiology; Admitting Provider Urology; PCP Family Medicine; Referring Provider Urology; Visit Provider Urology
PROC: (CPT 52601; principal; 2021-09-08 11:35)
DX: N40.1 Benign prostatic hyperplasia with lower urinary tract symptoms (principal); I48.0 Paroxysmal atrial fibrillation; N13.8 Other obstructive and reflux uropathy; R35.0 Frequency of micturition; I10 Essential (primary) hypertension; M19.90 Unspecified osteoarthritis, unspecified site; K44.9 Diaphragmatic hernia without obstruction or gangrene; G47.30 Sleep apnea, unspecified; Z87.891 Personal history of nicotine dependence; Z79.01 Long term (current) use of anticoagulants; Z79.899 Other long term (current) drug therapy
CPT/HCPCS: 52601; 00914; 36415; 80048; 85027; 87426; 88305; 99218; C9803; J7120; G0378; J2405

== ENCOUNTER 2021-09-29 15:30 | Observation (INO) | payer MEDICARE, BC, SELFPAY ==
[2021-09-29 15:31] VITALS: BP 144/86; PULSE 67; RESP 14; TEMP 36.4; O2SAT 98; BMI 27.6
--- NOTE | 2021-09-29 16:02 | EDS_ITS ---
HPI History of Present Illness Chief Complaint: Complaint Narrative Narrative: 81-year-old male with a TURP on [address] Quinn. Initially was doing well having some mild hematuria. He followed up in office with Dr. Quinn last week and was doing okay. Today he reports he has been unable to urinate for about 12 hours. He was not have any urinary symptoms such as dysuria prior to this. He does state that he noted some blood, clots, small debris. He states his lower abdomen feels full. He denies GI complaints. No nausea or vomiting. No fever or chills. [facility] Medical History Acute cystitis with hematuria Arthritis Back pain Bilateral lower extremity edema BPH (benign prostatic hyperplasia) Cardiology follow-up encounter Chronic prostatitis CPAP (continuous positive airway pressure) dependence Essential (primary) hypertension Former smoker History of atrial fibrillation History of hiatal hernia Paroxysmal atrial fibrillation Phlebitis of superficial vein of right lower extremity Prostate disease Sleep apnea Urinary tract infection with hematuria Home Medications dutasteride 0.5 mg capsule 0.5 mg PO DAILY 09/25/18 [History Last Taken 12/21/19] amiodarone 200 mg tablet 200 mg PO DAILY #90 tab 02/09/21 [Rx Last Taken 09/08/21] lisinopril 20 mg tablet 20 mg PO DAILY #90 tab 03/02/21 [Rx Last Taken 09/08/21] rivaroxaban 20 mg tablet 20 mg PO DAILY #90 tab 05/31/21 [Rx Last Taken Unknown] bisoprolol-hydrochlorothiazide [Ziac] 1 tab PO DAILY 09/01/21 [History Last Take n Unknown] ciprofloxacin HCl [Cipro] 500 mg PO BID #14 tab 09/08/21 [Rx Last Taken Unknown] Allergy/AdvReac Type Severity Reaction Status Date / Time No Known Allergies Allergy Verified 09/29/21 15:34 Family History Mother Myocardial infarction Father Colon cancer Sister Myocardial infarction Surgical History History of eye surgery History of left heart catheterization (2011) History of lumbar discectomy History of prostatectomy Social History Smoking Status: Former smoker alcohol intake: current alcohol intake frequency: holidays/special occasions only ROS ROS ED Constitutional Constitutional ED: Denies fever(s) or sweats Eyes Eyes: Denies blurry vision ENT ENT ED: Denies rhinorrhea or sore throat Cardiovascular Cardiovascular: Denies chest pain or palpitations Respiratory/Chest Respiratory/Chest: Denies cough, dyspnea or sputum Gastrointestinal Gastrointestinal: Reports abdominal pain; Denies nausea or vomiting Genitourinary Genitourinary ED: Reports hematuria and other Details: Urinary retention. Musculoskeletal Musculoskeletal: Denies arthralgias or myalgias Integumentary Denies rash Neurologic Neurologic: Denies headache(s) Psychiatric Psychiatric: Denies anxiety or depression EXAM Physical Exam Const Vital Signs: 09/29/21 15:31 Temperature 97.5 F L Temperature Source Temporal Pulse Rate 67 Respiratory Rate 14 Blood Pressure 144/86 H Blood Pressure Mean 105 Pulse Ox 98 Oxygen Delivery Method Room Air Positive well nourished General Appearance ED: NAD; Negative for pallor HEENT Reports moist mucous membranes normocephalic and atraumatic Eyes PERRL and EOMs intact bilaterally Resp normal respiratory effort and clear to auscultation bilaterally Cardio regular rate and regular rhythm no CVA tenderness Extremity normal to inspection General Extremety ED: Negative for tenderness Neuro oriented x3, CN's II-XII intact bilaterally, moves all extremities, no focal motor deficits and no sensory deficits noted Sensorium / Orientation: alert Motor Exam: strength 5/5 throughout; Negative for general weakness Psych mental status grossly normal Skin General Skin Exam: Negative for jaundice or pallor Lesions: no lesions Rashes: no rashes MDM MDM MDM Narrative Medical decision making narrative: Patient with urinary outlet obstruction. Recent history of TURP done by Dr. Quinn. Anticoagulated on Xarelto for history of A. fib. Patient having hematuria. Patient has not had voided in 12 hours. He has suprapubic pressure. Fowler catheter placed and urine obtained. Bladder irrigated. We are able to flush and it does drain into the Fowler catheter however the three-way Fowler catheter that is inserted will not draw. He was flushed multiple times. CBC shows no leukocytosis. Hemoglobin stable at 14.6. Platelets are normal at 299. Creatinine normal at 1.24. Electrolytes are normal. Urinalysis shows blood without evidence of infection. Discussed with Dr. Quinn who agrees to admit the patient overnight for irrigation. He does not want to three-way started. Patient counseled on findings and plan and is amenable to this. Patient admitted in stabilized condition. Impression: 1. Urinary outlet obstruction 2. Recent history of TURP 3. Hematuria Lab Data Attestation: I reviewed the patient's lab results. Labs: Laboratory Results - last 24 hr 09/29/21 09/29/21 09/29/21 16:15 16:15 16:40 WBC 10.4 RBC 4.53 L Hgb 14.6 Hct 43.4 MCV 95.8 H MCH 32.2 H MCHC 33.6 RDW Std Deviation 43.1 RDW Coeff of Chastity 12.1 Plt Count 299 MPV 11.9 Immature Gran % (Auto) 0.400 Neut % (Auto) 80.0 H Lymph % (Auto) 10.1 L [place] % (Auto) 7.0 Eos % (Auto) 2.2 Baso % (Auto) 0.3 Absolute Neuts (auto) 8.4 H Absolute Lymphs (auto) 1.05 Nucleated RBC % 0 Sodium 137 Potassium 4.1 Chloride 104 Carbon Dioxide 29.0 Anion Gap 4 L BUN 19 H Creatinine 1.24 Estim Creat Clear Calc 57.73 Est GFR (MDRD) Af Amer 72 Est GFR (MDRD) Non-Af 60 BUN/Creatinine Ratio 15.3 Glucose 118 H Calcium 8.8 Urine Color Red Urine Clarity Turbid Urine pH 7.0 Ur Specific [place] 1.010 Urine Protein 500 H Urine Glucose (UA) Normal Urine Ketones 15 H Urine Occult Blood 150 H Urine Nitrite Negative Urine Bilirubin Negative Urine Urobilinogen Normal Ur Leukocyte Esterase Negative Urine RBC > 100 SEEN Urine WBC 5-10 SEEN Ur Squamous Epith Cells 0 SEEN Urine Bacteria 0 SEEN Urine Mucus 0 SEEN Discharge Plan Triage Chief Complaint: Complaint ED Provider: Redd Loera Dx/Rx/DC Orders Primary Care Provider: Devyn Montalvo
[2021-09-29 16:26] LABS: Absolute Lymphocyte Count 1.05 X10^3/uL (0.83-4.51); Absolute Neutrophil Count 8.4 X10^3/uL (2.0-7.7); Basophil# 0.03 X10^3/uL; Basophil% 0.3 % (0-1); Eosinophil# 0.23 X10^3/uL; Eosinophils% 2.2 % (0-5); Hematocrit 43.4 % (40-54); Hemoglobin 14.6 g/dL (13.0-16.5); Lymphocyte # 1.05 X10^3/ul (0.83-4.51); Lymphocyte % 10.1 % (19-41); Mean Corp Hgb Conc 33.6 g/dL (32-36); Mean Corpuscular Hgb 32.2 pg (27.0-32.0); Mean Corpuscular Volume 95.8 fL (80-94); Mean Platelet Vol. 11.9 fl (6.2-12.0); Monocyte# 0.73 X10^3/uL; NRBC Flagged by Analyzer 0 % (0-5); Neutrophil # 8.35 X10^3/uL (2.7-7.7); Platelet Count 299 K/mm3 (150-450); RBC Distribution Width CV 12.1 % (11.6-14.6); RBC Distribution Width SD 43.1 fl (35.1-43.9); Red Blood Count 4.53 M/mm3 (4.6-6.2); White Blood Count 10.4 K/mm3 (4.4-11.0)
[2021-09-29 16:39] LABS: Anion Gap 4 (5-15); BUN 19 mg/dL (7-18); BUN/Creat Ratio 15.3 RATIO (10-20); Calcium,Total 8.8 mg/dL (8.5-10.1); Chloride 104 mmol/L (98-107); Creatinine, Serum 1.24 mg/dL (0.70-1.30); EST Glomerular Filtration Rate 60 mL/min (>60); Est Glom Filt Rate - Afr Amer 72 mL/min (>60); Estimated Creatinine Clearance 57.73 ml/min; Glucose 118 mg/dL (74-106); Potassium 4.1 mmol/L (3.5-5.1); Sodium Level 137 mmol/L (136-145)
[2021-09-29] MEDS: Lidocaine Jelly 2% 20 ML Syringe (URO-JET) 1 APPLIC TOPICAL (16:47)
[2021-09-29 16:49] LABS: Bacteria 0 SEEN /hpf (None Seen); Mucous, Urine 0 SEEN /hpf (<or=2+); Squamous Epithelial Cells - UA 0 SEEN /hpf (0-5)
[2021-09-29 16:53] LABS: Color, Urine Red (Yellow); Glucose, Dipstick Normal (Normal); Ketone-Dipstick 15 mg/dl (Negative); Leukocyte Esterase-Dipstick Negative /ul (Negative); Nitrite-Dipstick Negative (Negative); Occult Blood-Urine 150 /ul (Negative); Protein-Dipstick 500 mg/dl (Negative); Urine Bilirubin Dipstick Negative (Negative); Urine Clarity Turbid (Clear); Urine Urobilinogen Normal (Normal)
[2021-09-29 16:59] LABS: Red Blood Cells-Urine > 100 SEEN /hpf (0-5); White Blood Cells 5-10 SEEN /hpf (0-5)
--- NOTE | 2021-09-29 18:50 | CM.ED ---
RN CM Assessment Introduced role of RN CM to patient and patient Latoya Garces at bedside.? Patient is alert, oriented and able?to participate in RN CM Assessment. ?Care providers, pharmacy, and demographics verified. Admit Dx: Urinary Obstruction with Hematuria s/p TURP 09/08/[address] Quinn Re-Admit: No Barriers/Issues: None PCP: Devyn Montalvo Specialists: None Preferred Pharmacy: [facility]. If not open then [facility] [place] [facility] Insurance: [employer] A/B, [place] [facility] Benefit:?Yes LNOK: Latoya Garces. LW/HPOA: AD not on file at [facility]. HPOA- Latoya Garces Living Arrangements:?Lives with in a H, 1 small step to enter home ADL?s: Independent with ambulation and ADLs/IADLs Transportation: Both patient and drive DME: Walker from past back surgery- does not use HHC: None SNF: None Goal: Home and denies any concerns, issues, or needs with going home as of current. Aware RNCM will continue to follow should any needs arise. DC PLAN: Home with no anticipated needs identified at this time. KATHY Mayberry
[2021-09-29 18:54] VITALS: BP 137/79; PULSE 71; RESP 14; TEMP 36.4
[2021-09-29 18:58] VITALS: BP 137/79; PULSE 71; RESP 16
[2021-09-29 19:25] VITALS: BP 125/69; PULSE 79; RESP 18; TEMP 36.8; O2SAT 95
[2021-09-29 19:40] VITALS: BMI 27.1
[2021-09-29] MEDS: 0.9% Saline Lock 10 ML Syringe IV (20:47)
[2021-09-29] MEDS: 0.9% Normal Saline 1,000 ML 100 ML IV (20:47)
[2021-09-29] MEDS: Ciprofloxacin 400 MG/200 ML BAG 200 MG IV (22:07)
[2021-09-30 02:21] VITALS: BP 122/78; PULSE 64; RESP 16; TEMP 36.8; O2SAT 95
[2021-09-30] MEDS: 0.9% Normal Saline 1,000 ML 100 ML IV ×3 (05:10→21:38)
[2021-09-30] MEDS: Acetaminophen 500 MG Tablet PO (05:17)
--- NOTE | 2021-09-30 07:04 | HP.PCM_ITS ---
HPI - General General Date of Admission: 09/29/21 HPI Narrative ERIN YAÑEZ, is a 81 M who presents gross hematuria after TURP he restarted his Xarelto probably the cause of the bleeding will hold Xarelto continue with bladder irrigation the urine is clearing hopefully we can get the catheter out tomorrow for voiding trial. [facility] Medical History Acute cystitis with hematuria Arthritis Back pain Bilateral lower extremity edema BPH (benign prostatic hyperplasia) Cardiology follow-up encounter Chronic prostatitis CPAP (continuous positive airway pressure) dependence Essential (primary) hypertension Former smoker History of atrial fibrillation History of hiatal hernia Paroxysmal atrial fibrillation Phlebitis of superficial vein of right lower extremity Prostate disease Sleep apnea Urinary tract infection with hematuria Home Medications dutasteride 0.5 mg capsule 0.5 mg PO DAILY 09/25/18 [History Last Taken ] amiodarone 200 mg tablet 200 mg PO DAILY #90 tab 02/09/21 [Rx Last Taken 09/08/21] lisinopril 20 mg tablet 20 mg PO DAILY #90 tab 03/02/21 [Rx Last Taken 09/08/21] rivaroxaban 20 mg tablet 20 mg PO DAILY #90 tab 05/31/21 [Rx Last Taken Unknown] bisoprolol-hydrochlorothiazide [Ziac] 1 tab PO DAILY 09/01/21 [History Last Taken Unknown] Allergy/AdvReac Type Severity Reaction Status Date / Time No Known Allergies Allergy Verified 09/29/21 15:34 Family History Mother Myocardial infarction Father Colon cancer Sister Myocardial infarction Surgical History History of eye surgery History of left heart catheterization (2011) History of lumbar discectomy History of prostatectomy Social History Smoking Status: Former smoker alcohol intake: current alcohol intake frequency: holidays/special occasions only Vital Signs Vital Signs Vital Signs: 09/29/21 15:31 09/29/21 18:54 09/29/21 18:58 Temperature 97.5 F L 97.6 F L Temperature Source Temporal Temporal Pulse Rate 67 71 71 Respiratory Rate 14 14 16 Respiratory Effort Respiratory Pattern Blood Pressure 144/86 H 137/79 H 137/79 H Blood Pressure Mean 105 98 98 Blood Pressure Source Blood Pressure Position Blood Pressure Location Pulse Ox 98 Oxygen Delivery Method Room Air 09/29/21 19:14 09/29/21 19:25 09/30/21 02:21 Temperature 98.3 F 98.2 F Temperature Source Oral Oral Pulse Rate 79 64 Respiratory Rate 18 16 Respiratory Effort Normal Non-Labored Respiratory Pattern Normal Blood Pressure 125/69 H 122/78 H Blood Pressure Mean 87 92 Blood Pressure Source Monitor Monitor Blood Pressure Position Semi-Fowlers Blood Pressure Location Right Arm Pulse Ox 95 95 Oxygen Delivery Method Room Air Room Air Room Air Weight Weight: 99.1 kg Body Mass Index (BMI) 27.1 Results Lab / Micro Data Result Diagrams: 09/29/21 16:15 09/29/21 16:15 Labs: Laboratory Results - last 24 hr 09/29/21 16:15: WBC 10.4, RBC 4.53 L, Hgb 14.6, Hct 43.4, MCV 95.8 H, MCH 32.2 H , MCHC 33.6, RDW Std Deviation 43.1, RDW Coeff of Chastity 12.1, Plt Count 299, MPV 11.9, Immature Gran % (Auto) 0.400, Neut % (Auto) 80.0 H, Lymph % (Auto) 10.1 L, [place] % (Auto) 7.0, Eos % (Auto) 2.2, Baso % (Auto) 0.3, Absolute Neuts (auto) 8.4 H, Absolute Lymphs (auto) 1.05, Nucleated RBC % 0 09/29/21 16:15: Sodium 137, Potassium 4.1, Chloride 104, Carbon Dioxide 29.0, Anion Gap 4 L, BUN 19 H, Creatinine 1.24, Estim Creat Clear Calc 57.73, Est GFR (MDRD) Af Amer 72, Est GFR (MDRD) Non-Af 60, BUN/Creatinine Ratio 15.3, Glucose 118 H, Calcium 8.8 09/29/21 16:40: Urine Color Red, Urine Clarity Turbid, Urine pH 7.0, Ur Specific [place] 1.010, Urine Protein 500 H, Urine Glucose (UA) Normal, Urine Ketones 15 H, Urine Occult Blood 150 H, Urine Nitrite Negative, Urine Bilirubin Negative, Urine Urobilinogen Normal, Ur Leukocyte Esterase Negative, Urine RBC > 100 SEEN, Urine WBC 5-10 SEEN, Ur Squamous Epith Cells 0 SEEN, Urine Bacteria 0 SEEN, Urine Mucus 0 SEEN
[2021-09-30 08:02] VITALS: BP 120/55; PULSE 59; RESP 16; TEMP 36.8; O2SAT 93
[2021-09-30] MEDS: Ciprofloxacin 400 MG/200 ML BAG 200 MG IV ×2 (10:25→21:38)
[2021-09-30] MEDS: Lisinopril 20 MG Tablet PO (10:25)
[2021-09-30] MEDS: Finasteride 5 MG Tablet PO (10:25)
[2021-09-30] MEDS: Amiodarone 200 MG Tablet PO (10:25)
[2021-09-30] MEDS: hydroCHLOROthiazide 6.25mg TAB 6.25 MG PO (12:01)
[2021-09-30] MEDS: Bisoprolol Fumarate 5 MG Tablet PO (12:01)
[2021-09-30 13:03] VITALS: BP 139/70; PULSE 58; RESP 16; TEMP 36.7; O2SAT 95
--- NOTE | 2021-09-30 15:39 | CASEMGMT ---
LINH CM in to discuss PAYNE form with patient. RN CM explained PAYNE form, patient voiced understanding. Pt signed form and filed in chart. Pt provided with a copy of signed PAYNE form. Patient had no further questions or concerns at this time.
[2021-09-30 20:13] VITALS: BP 138/72; PULSE 59; RESP 18; TEMP 36.6; O2SAT 95
[2021-10-01 03:18] VITALS: BP 119/63; PULSE 60; RESP 18; TEMP 36.8; O2SAT 97
[2021-10-01] MEDS: 0.9% Normal Saline 1,000 ML 100 ML IV (06:40)
--- NOTE | 2021-10-01 07:12 | PCM.PN.GU ---
Subjective Subjective Urine is clearing this morning we will DC Fowler for voiding trial hopefully can go home. Objective Data Objective Data Vital Signs: Vital Signs Temp Pulse Resp BP Pulse Ox 98.2 F 60 18 119/63 97 10/01/21 03:18 10/01/21 03:18 10/01/21 03:18 10/01/21 03:18 10/01/21 03:18 Oxygen Delivery Method Room Air Weight: 99.1 kg Body Mass Index (BMI) 27.1 Intake & Output: Intake and Output for Last 24 Hours 09/29/21 09/30/21 10/01/21 23:59 23:59 23:59 Intake Total 333.33 / 333.33 2620.00 / 2620.00 803.33 / 803.33 Output Total 1979 / 1979 1350 / 1350 Balance -1646.67 / -1646.67 1270.00 / 1270.00 803.33 / 803.33 Lab / Micro Data Result Diagrams: 09/29/21 16:15 09/29/21 16:15
[2021-10-01 07:53] VITALS: BP 142/79; PULSE 57; RESP 18; TEMP 36.6; O2SAT 94
[2021-10-01] MEDS: Ciprofloxacin 400 MG/200 ML BAG 200 MG IV (09:23)
[2021-10-01] MEDS: hydroCHLOROthiazide 6.25mg TAB 6.25 MG PO (09:24)
[2021-10-01] MEDS: Finasteride 5 MG Tablet PO (09:24)
[2021-10-01] MEDS: Amiodarone 200 MG Tablet PO (09:24)
[2021-10-01] MEDS: Bisoprolol Fumarate 5 MG Tablet PO (09:24)
[2021-10-01] MEDS: Lisinopril 20 MG Tablet PO (09:24)
--- NOTE | 2021-10-01 12:25 | PCM.DC ---
Discharge Instructions Diet Discharge Diet: No restrictions Activity Discharge Activity: Return to Normal Activity and May Not Drive (while taking narcotic pain medications.) Dressing / Incision Call your doctor if you observe: Fever of 101 or Higher Follow Up Care Please Follow Up With: Perfecto Quinn MD When: Call [phone] for an appointment Test Results: Test results from this visit will be discussed in further detail at your follow-up appointment, if applicable. Discharge Plan Admission Admit Date/Time: 09/29/21 20:22 Primary Reason for Your Visit: bleeding Attending Provider: Perfecto Quinn Primary Care Provider: Devyn Montalvo Discharge Orders/Prescriptions Prescriptions: Continued dutasteride 0.5 mg capsule 0.5 mg PO DAILY RF: 0 bisoprolol-hydrochlorothiazide [Ziac] 5-6.25 mg Tablet 1 tab PO DAILY RF: 0 amiodarone 200 mg tablet 200 mg PO DAILY Qty: 90 RF: 3 lisinopril 20 mg tablet 20 mg PO DAILY Qty: 90 RF: 3 Held Xarelto 20 mg tablet 20 mg PO DAILY Qty: 90 RF: 3 Hold Instructions: Resume on 10/15/21. Referrals / Follow Up: Devyn Montalvo DO [Primary Care Provider] - Disposition Discharge Orders: Discharge Patient (Routine); Ordered 10/01/21 Ordered By: Dr. Perfecto Quinn
--- NOTE | 2021-10-01 12:26 | PCM.DC ---
Discharge Instructions Diet Discharge Diet: No restrictions Dressing / Incision Call your doctor if you observe: Fever of 101 or Higher Follow Up Care Please Follow Up With: Perfecto Quinn MD Test Results: Test results from this visit will be discussed in further detail at your follow-up appointment, if applicable. Discharge Plan Admission Admit Date/Time: 09/29/21 20:22 Primary Reason for Your Visit: bleeding Attending Provider: Perfecto Quinn Primary Care Provider: Devyn Montalvo Discharge Orders/Prescriptions Prescriptions: New ciprofloxacin HCl [Cipro] 500 mg tablet 500 mg PO BID Qty: 6 RF: 0 Continued dutasteride 0.5 mg capsule 0.5 mg PO DAILY RF: 0 bisoprolol-hydrochlorothiazide [Ziac] 5-6.25 mg Tablet 1 tab PO DAILY RF: 0 amiodarone 200 mg tablet 200 mg PO DAILY Qty: 90 RF: 3 lisinopril 20 mg tablet 20 mg PO DAILY Qty: 90 RF: 3 Held Xarelto 20 mg tablet 20 mg PO DAILY Qty: 90 RF: 3 Hold Instructions: Resume on 10/15/21. Referrals / Follow Up: Devyn Montalvo DO [Primary Care Provider] - Disposition Discharge Orders: Discharge Patient (Routine); Ordered 10/01/21 Ordered By: Dr. Perfecto Quinn
[2021-10-01 13:52] VITALS: BP 133/72; PULSE 56; RESP 18; TEMP 36.6; O2SAT 99
== END 2021-10-01 13:59 | disposition home or self-care (01) ==
LOC: ED 16:02 → MS3 18:23
PROVIDERS: Admitting Provider Urology; Emergency Provider Student in an Organized Health Care Education/Training Program; PCP Family Medicine; Visit Provider Urology
DX: N40.1 Benign prostatic hyperplasia with lower urinary tract symptoms (principal); I48.0 Paroxysmal atrial fibrillation; R31.9 Hematuria, unspecified; Z87.891 Personal history of nicotine dependence; N13.9 Obstructive and reflux uropathy, unspecified; I10 Essential (primary) hypertension; G47.30 Sleep apnea, unspecified; Z79.01 Long term (current) use of anticoagulants; Z79.899 Other long term (current) drug therapy; M19.90 Unspecified osteoarthritis, unspecified site
CPT/HCPCS: 51702; 80048; 81001; 85025; 96361; 96365; 96366; 99218; 99284; J7030; A4216; G0378; J0744

== ENCOUNTER → 2022-11-03 | Outpatient (CLI) | payer MEDICARE, BC, SELFPAY ==
--- NOTE | 2022-11-03 07:54 | ART_ITS ---
Reason For Study: PVD Procedure A bilateral lower extremity continuous wave Doppler with analog waveform analysis and ankle brachial indexes. Left Segmental Pressures Left brachial= 162mmHg. Left posterior tibial artery = 120mmHg. Left dorsalis pedis artery = 115mmHg. Left digit = 48 mmHg. The left dorsalis pedis waveforms are monophasic. The left posterior tibial artery waveforms are monophasic. Right Segmental Pressures Right brachial= 158mmHg. Right posterior tibial artery = 179mmHg. Right dorsalis pedis artery = 175mmHg. Right digit = 114 mmHg. The right dorsalis pedis waveforms are triphasic. The right posterior tibial artery waveforms are triphasic. Indices The right ankle brachial index by the dorsalis pedis is 1.08. The right ankle brachial index by the posterior tibial artery is 1.1. The right digital-brachial index is .7. The left ankle brachial index by the posterior tibial artery is .74. The left ankle brachial index by the dorsalis pedis is .71. The left digital-brachial index is .3. VL/Ankle Brachial Index Interpretation Summary Right MARGE 1.1, normal. Doppler/PVR waveforms of the right ankle normal at rest. TBI diminished, pedal/digit disease Left MARGE 0.74, moderate arterial insufficiency. Doppler/PVR waveforms of the le ft ankle moderately diminished at rest. Ordering Physician: Judy Bernal Performed By: Damion Stark RVT
== END | disposition home or self-care (01) ==
LOC: CVS 07:51
PROVIDERS: PCP Family Medicine; Referring Provider Podiatrist; Visit Provider Podiatrist
DX: I73.9 Peripheral vascular disease, unspecified (principal)
CPT/HCPCS: 93922

== ENCOUNTER → 2023-01-31 | Outpatient (CLI) | payer MEDICARE, BC, SELFPAY ==
--- NOTE | 2023-01-31 09:27 | RAD_ITS ---
INDICATION: SOB EXAMINATION/TECHNIQUE: X-RAY - XR Chest 2 Views COMPARISON: January 20, 2021. FINDINGS: LINES/DEVICES: None. LUNGS: Lungs are hyperexpanded with flattening of the hemidiaphragms. No consolidation, edema or effusion. No pneumothorax. Mild eventration in the anterior right hemidiaphragm. MEDIASTINUM AND CARDIOVASCULAR STRUCTURES: Mild cardiomegaly. Aortic atherosclerosis and tortuosity. BONES AND SOFT TISSUES: Unremarkable. RAD/Chest PA and Lateral IMPRESSION: Mild cardiomegaly without pulmonary edema or other acute cardiopulmonary process Hyperexpansion as can be seen with chronic obstructive pulmonary disease. Electronically Signed: Db Montgomery MD at 3:36 EDT ,
[2023-01-31 11:02] LABS: ALB/GLOB Ratio 0.8 RATIO (0.9-2.4); AST(SGOT) 13 U/L (15-37); Alanine Aminotransfer ALT/SGPT 19 U/L (16-61); Alkaline Phosphatase 102 U/L (45-117); Anion Gap 4 (5-15); BUN 15 mg/dL (7-18); BUN/Creat Ratio 13.8 RATIO (10-20); Calcium,Total 8.7 mg/dL (8.5-10.1); Chloride 107 mmol/L (98-107); Creatinine, Serum 1.09 mg/dL (0.70-1.30); EST Glomerular Filtration Rate 69 mL/min (>60); Est Glom Filt Rate - Afr Amer 84 mL/min (>60); Globulin 3.7 g/dL (2.2-4.2); Glucose 97 mg/dL (74-106); Potassium 4.3 mmol/L (3.5-5.1); Protein, Total 6.7 g/dL (6.4-8.2); Sodium Level 138 mmol/L (136-145); Thyroid Stim Hormone (TSH) 1.97 uIU/mL (0.358-3.74)
== END | disposition home or self-care (01) ==
LOC: RAD 09:25
PROVIDERS: PCP Family Medicine; Referring Provider Physician Assistant Medical; Visit Provider Physician Assistant Medical
DX: I10 Essential (primary) hypertension (principal); I48.0 Paroxysmal atrial fibrillation; Z79.899 Other long term (current) drug therapy
CPT/HCPCS: 36415; 71046; 80053; 84443

== ENCOUNTER → 2023-02-07 | Outpatient (CLI) | payer MEDICARE, BC, SELFPAY ==
--- NOTE | 2023-02-08 08:10 | PFT ---
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 Respiratory therapy reported good patient effort. Bronchodilators were used during testing. INTERPRETATION: Forced expiration spirometry demonstrates no evidence of a large airways obstructive ventilatory defect. There was no significant response to aerosolized bronchodilators. Spirograms are of good quality and plateau normally. Body plethysmography was performed and revealed a decreased TLC to 6.09 L, 77% of predicted, indicative of a mild restrictive ventilatory impairment. Diffusing capacity by single breath CO is reduced to 58% of predicted. IMPRESSION: Mild restrictive ventilatory impairment with symmetric reduction in diffusing capacity.
== END | disposition home or self-care (01) ==
LOC: PSN 06:50
PROVIDERS: PCP Family Medicine; Referring Provider Physician Assistant Medical; Visit Provider Physician Assistant Medical
DX: I48.0 Paroxysmal atrial fibrillation (principal); Z79.899 Other long term (current) drug therapy
CPT/HCPCS: 94060; 94726; 94729

== ENCOUNTER → 2023-02-24 | Outpatient (CLI) | payer MEDICARE, BC, SELFPAY ==
--- NOTE | 2023-02-24 07:54 | VDLE_ITS ---
Reason For Study: BLE Edema RIGHT LEFT CFV is compressible, spontaneous, phasic, CFV is compressible, spontaneous, phasic, competent and demonstrates normal competent, and demonstrates normal augmentation. augmentation. FV is compressible, spontaneous, phasic, FV is compressible, spontaneous, phasic, competent and demonstrates normal competent and demonstrates normal augmentation. augmentation. POP V is compressible, spontaneous, phasic, POP V is compressible, spontaneous, phasic, competent and demonstrates normal competent and demonstrates normal augmentation. augmentation. T/P Trunk is compressible. T/P Trunk is compressible. PTV is compressible. PTV is compressible. RT PerV is compressible. LT PerV is compressible. SFJ is competent and measures 0.82 cm. SFJ is competent and measures 0.73 cm. GSV proximal thigh measures 0.49 x 0.54 cm. GSV proximal thigh measures 0.47 x 0.53 cm. GSV above knee is competent. GSV at knee measures 0.46 x 0.48 cm. GSV at knee measures 0.40 x 0.45 cm. GSV is competent throughout. GSV below knee is INCOMPETENT for greater SSV proximal calf is competent and measures than 0.5 seconds. 0.40 x 0.42 cm. SSV proximal calf is competent and measures ASV mid calf is INCOMPETENT for greater than 0.39 x 0.41 cm. 0.5 seconds and measures 0.24 x 0.32 cm. Procedure Incompetent Lt ASV appears to originate at Lt This is a venous duplex using B-mode, color GSV prox calf. flow and spectral Doppler. Exam performed in department. The exam was diagnostic. VL/Venous Duplex US - Young Extrem Interpretation Summary Deep veins of the bilateral lower extremities are patent and compressible segme ntally. There is no evidence of bilateral lower extremity deep vein thrombosis. The bilateral great saphenous veins appear patent and compressible segmentally. Positive for reflux in the right great saphenous vein below the knee. Positive for reflux in the left accessory saphenous vein in calf Ordering Physician: Avis Macias Referring Physician: Zaki Burger Performed By: Ramses Castillo RVT
== END | disposition home or self-care (01) ==
LOC: CVS 07:54
PROVIDERS: PCP Family Medicine; Referring Provider Physician Assistant; Visit Provider Physician Assistant
DX: R60.0 Localized edema (principal); M79.604 Pain in right leg; M79.605 Pain in left leg
CPT/HCPCS: 93970

== ENCOUNTER → 2023-03-09 | Outpatient (CLI) | payer MEDICARE, BC, SELFPAY ==
--- NOTE | 2023-03-09 10:57 | NEURO ---
NCS and/or EMG Patient Report Ordering Doctor: Avis Cortez DATE OF SERVICE: 03/09/23 Clinical Summary: This is a 83 year old male presenting with complaints of numbness in the feet bilaterally and up to the ankles. This EMG/NCS was performed to evaluate for peripheral neuropathy and/or lumbosacral radiculopathies. Nerve Conduction Studies: All SNAPs were absent bilaterally. The peroneal and tibial CMAP amplitudes were diffusely reduced bilaterally. The left tibial-AH CMAP distal latency was prolonged. The peroneal motor conduction velocity was reduced diffusely bilaterally. The peroneal and tibial F-wave onset latencies were prolonged bilaterally. Needle Examination: Needle examination of the bilateral lower extremities was performed. Insertional and spontaneous activity was normla. There was a higher proportion of motor unit action potentials with reduced recruitment, increased amplitude, increased duration, and polyphasia in the left L5 and right L4 to S1 myotomes. 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 Clinical correlation is advised. Multi Select Codes Neurology Neurology Interp Codes: 57574-30 EMG Only, 2 Extremities and 78050-45 Nrv cnd test 7-8 studies (interp)
--- NOTE | 2023-03-09 11:49 | NEURO ---
NCS and/or EMG Patient Report Ordering Doctor: Avis Cortez DATE OF SERVICE: 03/09/23 Clinical Summary: 83 year old male patient presenting with complaints of numbness in his feet and up to his ankles bilaterally. This EMG/NCS was performed to evaluate for peripheral neuropathy. Nerve Conduction Studies: All SNAPs were absent in the bilateral lower extremities. The peroneal and tibial CMAP amplitudes were reduced diffusely bilaterally. The left tibial CMAP-AH distal latency was prolonged. The peroneal motor conduction velocity was reduced diffusely bilaterally. The peroneal and tibial F-wave onset latencies were prolonged bilaterally. Nerve conduction studies were normal. Needle Examination: Needle examination of the bilateral lower extremities demonstrated was a higher proportion of motor unit action potentials with reduced recruitment, increased amplitude, increased duration, and polyphasia in the right L4 to S1 and left L5 myotomes. 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 Clinical correlation is advised. Multi Select Codes Neurology Neurology Interp Codes: 73414-02 EMG Only, 2 Extremities and 41589-63 Nrv cndj test 7-8 studies (interp)
== END | disposition home or self-care (01) ==
LOC: PSN 09:58
PROVIDERS: PCP Family Medicine; Referring Provider Physician Assistant; Visit Provider Physician Assistant
DX: R20.0 Anesthesia of skin (principal)
CPT/HCPCS: 95886; 95910

== ENCOUNTER → 2023-03-16 | Outpatient (CLI) | payer MEDICARE, BC, SELFPAY ==
[2023-03-16 12:00] LABS: Absolute Lymphocyte Count 1.15 X10^3/uL (0.83-4.51); Absolute Neutrophil Count 3.2 X10^3/uL (2.0-7.7); Basophil# 0.05 X10^3/uL; Eosinophils% 3.9 % (0-5); Hematocrit 45.1 % (40-54); Hemoglobin 14.3 g/dL (13.0-16.5); Lymphocyte # 1.15 X10^3/ul (0.83-4.51); Lymphocyte % 22.2 % (19-41); Mean Corp Hgb Conc 31.7 g/dL (32-36); Mean Corpuscular Hgb 31.2 pg (27.0-32.0); Mean Corpuscular Volume 98.3 fL (80-94); Mean Platelet Vol. 12.2 fl (6.2-12.0); Monocyte# 0.56 X10^3/uL; Monocyte% 10.8 % (0-10); NRBC Flagged by Analyzer 0 % (0-5); Neutrophil % 61.7 % (47-70); Platelet Count 247 K/mm3 (150-450); RBC Distribution Width CV 12.9 % (11.6-14.6); RBC Distribution Width SD 46.5 fl (35.1-43.9); Red Blood Count 4.59 M/mm3 (4.6-6.2); White Blood Count 5.2 K/mm3 (4.4-11.0)
[2023-03-16 12:27] LABS: Cholesterol 208 mg/dL (200); High Density Lipoprotein 53 mg/dL; Triglycerides 129 mg/dL; Very Low Density Lipoprotein 26 mg/dL (5-40)
== END | disposition home or self-care (01) ==
LOC: BFHLAB 08:11
PROVIDERS: PCP Family Medicine; Referring Provider Family Medicine; Visit Provider Family Medicine
DX: I10 Essential (primary) hypertension (principal); I48.0 Paroxysmal atrial fibrillation; R59.0 Localized enlarged lymph nodes
CPT/HCPCS: 36415; 80061; 85025

== ENCOUNTER → 2023-04-13 | Outpatient (CLI) | payer MEDICARE, BC, SELFPAY ==
--- NOTE | 2023-04-13 09:23 | CT_ITS ---
INDICATION: LOCALIZED SWELLING MASS AND LUMP-right side 1 month, hypertension, Afib, skin cancer. EXAMINATION: CT NECK WITH CONTRAST - CT Soft Tissue Neck W/ Contrast Injection TECHNIQUE: Helically acquired images were obtained of the neck following IV contrast. RADIATION DOSAGE (If Supplied By Facility): CTDIvol = ( 16.62 ) mGy, DLP = ( 543.91 ) mGycm IV Contrast dosage and agent: 75 mL of Isovue-370. COMPARISON: None. FINDINGS: NASOPHARYNX: Unremarkable. SUPRAHYOID NECK: 3.7 x 2.5 x 2 cm ovoid hypodense lesion overlying the right sternocleidomastoid muscle in the suprahyoid neck with minimal irregular contrast enhancement in the upper wall. This has a CT number of 16 Hounsfield units. This is just below the caudal surface of the right parotid gland. No other mass in the suprahyoid neck. INFRAHYOID NECK: Unremarkable larynx, hypopharynx, and supraglottis. THYROID: At least 2 small hypodense lesions in the peripheral aspect of the right thyroid lobe. SALIVARY GLANDS: Unremarkable. LYMPH NODES: No cervical or supraclavicular lymphadenopathy. VASCULAR STRUCTURES: Normal bilateral cervical carotid arteries and vertebral arteries. The right vertebral artery is hypoplastic. Normal aortic arch and origins of the great vessels. VISUALIZED PORTIONS OF THE ORBITS, PARANASAL SINUSES, MASTOID AIR CELLS AND SKULL BASE: Unremarkable. BONES: Degenerative disc space height narrowing at C2-C3 down to C6-C7 disc space levels. Minimal degenerative anterolisthesis of C5 on C6. No lytic or blastic lesions. THORACIC INLET: Clear lung apices. CT/Soft Tissue Neck WITH Contrast IMPRESSION: 3.7 x 2.5 x 2 cm hypodense ovoid cystic lesion with minimal irregular contrast enhancement of the upper wall overlying the right sternocleidomastoid muscle. This is underneath the caudal surface of the right parotid gland. This is causing mild posterior displacement of the right sternocleidomastoid muscle but no displacement of the right carotid sheath. The location is more lateral than the expected position of a partially complicated second brachial cleft cyst. There is also no visible sinus tract associated with this cystic lesion. The possibility of metastatic cystic lymphadenopathy is worrisome considering the history of skin cancer. This is superficial and surgical removal will be very helpful rather than biopsy. Electronically Signed: Gadiel Feliciano MD at 15:12 EDT ,
[2023-04-13 09:55] LABS: CREATININE FINGERSTICK 1.3 mg/dL (0.70-1.30)
== END | disposition home or self-care (01) ==
LOC: CT 09:22
PROVIDERS: PCP Family Medicine; Referring Provider Otolaryngology; Visit Provider Otolaryngology
DX: R22.1 Localized swelling, mass and lump, neck (principal)
CPT/HCPCS: 70491; Q9967

== ENCOUNTER 2023-04-28 09:25 | Outpatient (CLI) | payer MEDICARE, BC, SELFPAY ==
--- NOTE | 2023-04-28 | ASPOS_PTH ---
PATIENT: ERIN YAÑEZ LOC: [facility] U#:[id number] AGE/SX: 83/M ROOM: RE04/28/[address]: Dr. Spenser Estrada MD : [id number] BED: DIS: 04/28/2023 SPEC #: [id number] RECD: 04/28/23 11:17 STATUS: MANNY REQ #: [id number] ELIAS: 04/28/23 00:[address]: Spenser Estrada DEPT: CYTOLOGY RECD BY: Yumiko Fernández ENTERED: 04/28/23 11:17 SP TYPE: ASP HERE OTHR DR: Dr. Briseida Vergara MD Tissues: Neck, NOS Procedures: Surgery Specimen Level IV Cytology Other Fine Needle Asp on Site HEADER OPERATION: Fine needle aspiration right neck mass PRE-OP DIAGNOSIS: Right neck mass TISSUE SUBMITTED: Right neck mass DIAGNOSIS CYTOLOGY Fine needle aspiration, right neck mass (smears, cytospin and cell block): A few atypical cells in background of cellular debris and inflammatory cells. See comment. AM:mojgan 05/08/2023 COMMENT A fine needle aspiration was performed and the specimen is evaluated at the time of FNA by Dr. Garcia. Immediate Evaluation = Macrophages consistent with benign cyst contents. This case was seen in consultation with Dr. Munoz from [facility]. The complete report is viewable in EMR. Case has been reviewed in consultation with Dr. Snell who concurs with the above diagnosis. IDC:SJ CYTOLOGY STUDY Slides are reviewed. CYTOLOGY GROSS Received is 6 ml of light prince fluid labeled with the patient's name, and designated right neck mass. Four imprints and three paps are made from the submitted fluid and the rest is added to CytoLyt for cell block preparation. Submitted for cytology study. / mojgan 04/28/2023 TC:? CPT: 17977, 22893, 72302, 23199
== END 2023-04-28 23:59 | disposition home or self-care (01) ==
LOC: LAB 09:25
PROVIDERS: PCP Family Medicine; Referring Provider Otolaryngology; Visit Provider Otolaryngology
DX: R22.1 Localized swelling, mass and lump, neck (principal)
CPT/HCPCS: 10021; 88161; 88305

== ENCOUNTER 2023-05-09 07:00 | Outpatient (RCR) | payer MEDICARE, BC, SELFPAY ==
--- NOTE | 2023-04-11 07:57 | HP.PTEVAL_ITS ---
Patient's Visit Information Visit Information Visit Information: ERIN YAÑEZ is a 83 year old M referred to Physical Therapy by Dr. Adal Silva DPM with a diagnosis of idiopathic neuropathy. Date of Evaluation: 04/11/23 Physical Therapist: MATT Zuleta Visit Plan Frequency: 2x /Week Duration: 3 Months Plan: GAIT BELT is needed 2X/ week for 8 weeks for static and functional balance on and off foam, with and without head turns, gait mechanics, Hip, knee and core strength with Indiv H&W program to continue through H&W. Recommended pt use a cane for safety HEP: standing and sitting heel and toe raises Subjective Subjective: Pt has been to several Dr's. He is going to another Dr. Low blood flow in L leg. Everything seem to start with big toe on L foot which is a nerve problem. The balance thing seemed to come on before that. When he washes his face he has to put his knees up against the cabinet. Golfing he feels like he will fall on side of the hill. When he goes to put a sweater on and he is in the dark he feels off balance. They never mentioned neuropathy. He feels needles in his feet at night. He does not have great feeling in his feet and has to watch break to gas in the car and has not driven his sports car in a year. He has no DM. He has fallen twice... once when he was bending over to get something. Another time he bent over to get his hat and he went down. He does not get dizzy. He has a shoulder problem and got a cortizone shot and gave him some exercises that he does here. Objective Objective: Gait: walks with increase veering, shorter strides, decrease DF. As soon as pt turns his head he has increase veering LE MMT: R hip flex 17.6 and L13.6 R knee ext 11.4 and L 13.3 R knee flex 3.1 and L 4.3 R hip abd 12.8, L 7.9 Heel and toe raises: pt struggles with toes up (not able to get close to full ROM). Pt is able to heel raise with UE support FGA: 6 CATSIB 97 Balance/Special Test Scores Functional Gait Assessment Score: 6 % Disability: 80.0000 CATSIB Score (Max score 120 seconds): 97 Lower Extremity Functional Score: 40 Goals Goal 1:: I HEP Goal Time Frame: 8-12 Weeks Goal 2:: Be able to waste picker an object from the floor with CGA without falling over Goal Time Frame: 6-8 Weeks Goal 3:: Be able to walk with vertical and horizontal head turns without LOB or veering Goal Time Frame: 6-8 Weeks Goal 4:: Increase balance by increasing FGA score (FGA at time of eval was 6) Goal Time Frame: 6-8 Weeks Goal 5:: Increase balance by increasing CATSIB score (CATSIB at time of eval was 97) Rehabilitation Potential Rehabilitation Potential: Good Anticipated Interventions Patient/Client Instruction: Educate patient on: Condition and Plan of Care For the Purpose of:: To improve nutrient delivery to tissue, To improve muscle performance and motor function, To improve ability to perform ADL's, To increase tolerance to activity/condition/position, To improve performance and independence with ADL's, To decrease level of supervision to perform tasks, To improve ability of physical actions for home/community/work/leisure, To improve gait and locomotor functions, To decrease soft tissue restriction, To increase flexibility/ROM, To improve endurance, To improve balance and To improve safety with gait Therapeutic Exercise to Include: Strength training, Endurance training, Balance training, Postural training, Flexibilty training, Gait and locomotor training, Neuromotor development, via Neurocom Balance Mas, Active ROM and Dynamic Lumbar Stabilization For the Purpose of:: To improve muscle performance and motor function, To improve ability to perform ADL's, To increase tolerance to activity/condition/position, To improve performance and independence with ADL's, To decrease level of supervision to perform tasks, To improve ability of physical actions for home/community/work/leisure, To improve gait and locomotor functions, To improve health of tissue, To decrease soft tissue restriction, To increase flexibility/ROM, To improve balance and To improve safety with gait Functional Training to Include: Gait training For the Purpose of:: To improve gait and locomotor functions and To improve safety with gait Manual Therapy Techniques to Include: Passive ROM For the Purpose of:: To improve gait and locomotor functions, To improve health of tissue, To decrease soft tissue restriction and To increase flexibility/ROM Text: Thank you for the opportunity to evaluate your patient. For Medicare and Medicare HMO plans, please review the plan of care and approve it. It will need to be FAXED BACK to us at [phone] for Medicare purposes. For Medicare only, by signing this I certify the plan of care. Please let me know if there are questions or concerns regarding this plan of care. Physician Signature : Date:
--- NOTE | 2023-05-09 07:32 | HP.PTDCSUM_ITS ---
Discharge Summary D/C summary: It has been my pleasure to treat ERIN YAÑEZ referred by Dr. Adal Silva DPM, with the diagnosis of idiopathic neuropathy for a total of 9 visit(s). Discharge Date: 05/09/23 Please see the following information for a summary of their discharge status. Subjective Subjective: He sees the Dr peterson. One side effect of his BP med is swollen ankles. He reports that he can move his ankles but they are tight and swollen. He was having touble with decrease circulation in his ankles. Pt feels that his balance is a little better. He is comfortable with his gym routine and did it on his own yesterday and today. 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 floor: wider TONY but able to do it steadily Goals Goal 1:: I HEP Goal Progress: Goal Met Goal 2:: Be able to machine operator hop picker an object from the floor with CGA without falling over Goal Progress: Progressing Goal 3:: Be able to walk with vertical and horizontal head turns without LOB or veering Goal Progress: Progressing Goal 4:: Increase balance by increasing FGA score (FGA at time of eval was 6) Goal Progress: Goal Met Goal 5:: Increase balance by increasing CATSIB score (CATSIB at time of eval was 97) Goal Progress: Goal Met Plan Plan: DC PT to I gym routine D/C Information Discharge Comments: DC PT to I gym routine d/c sentence: If there are questions or concerns regarding this patient's physical therapy, please feel free to call me at [phone]. Thank you for the referral of this patient. Sincerely, Hortencia Jaimes, MPT Balance/Gait/Functional tests Balance/Special Test Scores Functional Gait Assessment Score: 11 % Disability: 63.3400 CATSIB Score (Max score 120 seconds): 100 Lower Extremity Functional Score: 40 Improvement % Improvement: 50
== END 2023-05-09 08:34 | disposition home or self-care (01) ==
LOC: PT 07:00
PROVIDERS: PCP Family Medicine; Referring Provider Podiatrist; Visit Provider Podiatrist
DX: G60.8 Other hereditary and idiopathic neuropathies (principal)
CPT/HCPCS: 97110; 97161; 97530

== ENCOUNTER → 2023-05-30 | Outpatient (CLI) | payer MEDICARE, BC, SELFPAY ==
--- NOTE | 2023-05-30 10:30 | PET_ITS ---
EXAMINATION: FDG PET/CT ? INDICATIONS: 83-year-old male with a history of malignant melanoma, presenting for restaging examination. ? COMPARISON EXAMINATION: None available. ? INDEX LESION SIZE SUV INTERPRETATION Right periauricular region, parotid space 19.7 mm, largest 2.9 max Associated with fatty hilus formation, low likelihood of viable neoplasm ? TECHNIQUE: Following the intravenous administration of 14.55 mCi of F-18 deoxyglucose via the left wrist, multiplanar image acquisitions of the head, neck, chest, abdomen, pelvis, and lower extremities to the level of the bilateral forefoot, obtained at one-hour post radiopharmaceutical administration contemporaneously interpreted with the current CT of the chest, abdomen and pelvis dated 05/30/2023 via coregistration reveal: SERUM GLUCOSE LEVEL:? 98 mg/dL? HEIGHT:?? 75 inches WEIGHT:?? 220 pounds ? FINDINGS: ? HEAD/NECK:? Increased radiopharmaceutical concentration is defined in the right periauricular region, right parietal space. The calculated maximum standard uptake value 2.9. The maximum axial diameter of the metabolic, morphologic abnormality is 19.7 mm. Fatty hilus formation is defined on review of the CT of the neck dated 05/30/2023 in the analogous location. ? The visualized portion of the cerebral cortical-subcortical structures demonstrate symmetric and preserved glucose metabolism. ? CHEST:? Prominent uptake is defined in the descending thoracic aorta, commensurate with activated leukocytes associated with atherosclerotic plaque formation. There is visualized radiopharmaceutical concentration noted in the left ventricular myocardium, consistent with the fed state. ? CT of the chest demonstrates the following anatomic characteristics: Atherosclerotic calcification is defined in the thoracic aorta without evidence of dilatation, aneurysm formation. Bilateral axillary soft tissue densities are ametabolic. Mediastinal soft tissue reveals no evidence of increased tracer uptake. There are no parenchymal densities-nodules defined in the right and left hemithorax with quantitatively significant increased FDG uptake. ? ABDOMEN/PELVIS:? Normal physiologic distribution of the radiopharmaceutical is identified in the hepatic and splenic parenchyma, both renal units, urinary bladder, and visualized intestinal tract. ? CT of the abdomen and pelvis is remarkable for the following: Cholelithiasis is defined. Calcification is noted within the pancreatic body. Cyst formation is noted in the bilateral kidneys. Atherosclerotic calcification is defined in the abdominal aorta without evidence of dilatation, aneurysm formation. Abdominal-pelvic arterial calcification is observed. Colonic diverticulosis is encountered without evidence of diverticulitis. A fat-containing left inguinal hernia is noted. Right and left inguinal soft tissue densities demonstrate no evidence of increased tracer uptake. ? SKELETAL:? Degenerative changes defined in the thoracic and lumbar spine demonstrate no evidence of increased glucose metabolism. There are no sclerotic, mixed sclerotic-lytic, or primarily lytic changes defined in the axial skeletal structures with evidence of increased FDG uptake. ? PET/PET/CT Tumor WB Initial IMPRESSION: 1. NEGATIVE EXAMINATION. There is no definitive quantitatively significant scintigraphic evidence of recurrent-metastatic viable neoplasm. 2. Increased tracer uptake noted in the right periauricular region-parotid space, is associated with low likelihood of viable neoplasm secondary to the presence of fatty hilus formation. (Trip, Cancer Imaging, 104-11, 2009). 3. No other quantitatively significant scintigraphic abnormalities are noted. Electronic Signature Kevin Nielsen D.O. Accurate Quantification of SUVs for this report are calculated using the exclusive [employer]. ([place].S. Patent No. [id number] B2 [phone] [place] patent [id number] [id number] [phone]). Standardization and correction of the FDG SUV metric via [employer] technology allow for vendor non-specific objective quantitative examination comparison and optimization of the sensitivity and specificity of the FDG PET-CT examination. . [email or web address] ? Electronically Signed: Kevin Nielsen DO at 8:30 EST ,
== END | disposition home or self-care (01) ==
LOC: ONC 10:12
PROVIDERS: PCP Family Medicine; Referring Provider Otolaryngology; Visit Provider Otolaryngology
DX: C43.111 Malignant melanoma of right upper eyelid, including canthus (principal); R22.1 Localized swelling, mass and lump, neck
CPT/HCPCS: 78815; 78816; A9552

== ENCOUNTER 2023-06-22 08:18 | Day surgery (SDC) | payer MEDICARE, BC, SELFPAY ==
[2023-06-21 08:23] VITALS: BMI 27.7
--- NOTE | 2023-06-22 08:22 | HP.PCM_ITS ---
[facility] - General General Date of Service: 06/22/23 [facility] Narrative ERIN YAÑEZ, is a 83 M who presents today for planned venogram to assess for central venous compression with intervention if identified. He is noted to be CEAP C5 bilaterally with persistent edema not sufficiently improved by compression. His lower extremity edema also seems to be contributing to balance issues. He does have a history of venous ulcerations bilaterally. His medical history is otherwise significant for Afib (on Xarelto), HTN, lumbar DDD s/p L3-4 discectomy/laminectomy/foraminotomy. He reports he recently increased his metoprolol back to 50mg daily. Otherwise, no medication changes or changes to his medical history. He denies any N/V, F/C, CP, SOB, palpitations, syncope/presyncope, cough, or recent illness. No complaints today. He held 2 doses of Xarelto as directed. He has not had anything to eat or drink since midnight except for a small sip of water to take his morning medications. [facility] Medical History Acute cystitis with hematuria Arthritis Back pain Bilateral lower extremity edema BPH (benign prostatic hyperplasia) Cardiology follow-up encounter Chronic prostatitis CPAP (continuous positive airway pressure) dependence Essential (primary) hypertension Former smoker H/O Mohs micrographic surgery for skin cancer History of atrial fibrillation History of hiatal hernia Lumbar and sacral osteoarthritis Lumbar degenerative disc disease Lumbar disc displacement without myelopathy Paroxysmal atrial fibrillation Phlebitis of superficial vein of right lower extremity Prostate disease Sleep apnea Urinary frequency Urinary tract infection with hematuria Home Medications lisinopril 20 mg tablet 20 mg PO DAILY #90 tabs 10/05/22 [Rx Last Taken 06/22/23] rivaroxaban 20 mg tablet (Xarelto) 20 mg PO QPM 01/31/23 [History Last Taken 06/20/23] metoprolol succinate 50 mg tablet,extended release 24 hr (Toprol XL) 25 mg (1/2 x 50 mg) PO DAILY #90 tabs 05/17/23 [Rx Last Taken 06/22/23] Allergy/AdvReac Type Severity Reaction Status Date / Time No Known Allergies Allergy Verified 05/11/23 15:01 Family History Mother Myocardial infarction Father Colon cancer Sister Myocardial infarction Surgical History History of eye surgery History of left heart catheterization (2011) History of lumbar discectomy History of prostatectomy History of transurethral resection of prostate Social History Smoking Status: Former smoker how long ago did patient quit smokin03/02/1987 alcohol intake: current alcohol intake frequency: a few times a week substance use type: does not use caffeine: No Vital Signs Vital Signs Vital Signs: Weight Weight: 222 lb Body Mass Index (BMI) 27.7 Physical Exam Narrative Const General: cooperative, healthy appearing, comfortable, no acute distress and well developed Nutritional Appearance: well nourished Orientation: alert, awake and oriented x3 HENMT Head: normocephalic and atraumatic Ears: hearing grossly normal bilaterally Nose: external nose normal Eyes General: appearance normal, both eyes and all related structures EOM: EOM intact bilaterally Neck Neck: normal visual inspection, full ROM, no lymphadenopathy and trachea midline Thyroid: thyroid normal Lymphatic: no lymphadenopathy noted Resp Effort & Inspection: normal respiratory effort, able to speak in complete sentences, symmetric chest movement, no audible wheezes, not labored, no stridor and no use of accessory muscles Cardio Rate: regular rate Rhythm: regular rhythm Pulses: brachial pulses present and radial pulses present Skin General: no rashes or lesions noted and no erythema Wounds: no wounds Neuro Cranial Nerves: CN's II-XI intact bilaterally and EOM intact bilaterally Speech: speech normal Gait: normal gait Motor: strength 5/5 throughout Sensory Exam: no sensory deficits noted Extremities Pulses: Normal: Right Dorsalis Pedis Pulse and Right Posterior Tibial Pulse and Absent: Left Dorsalis Pedis Pulse and Left Posterior Tibial Pulse Lower Extremity Edema: +1: Bilateral Veins: Bilateral: Reticular Veins, Bilateral: Hemosiderin and Bilateral: Lipodermatosclerosis Psych Appearance: grossly normal and well kempt Mental Status: mental status grossly normal Mood: congruent mood Speech and Movement: speech and movement normal Thought Content: normal Judgment: judgment good Results Lab / Micro Data 06/22/23 08:23 06/22/23 08:23 Assessment & Plan Assessment/Plan (1) Venous insufficiency (chronic) (peripheral): PLAN: We discussed the procedure including risks, benefits, and recovery. He remains agreeable to proceed. Plan is for venogram possible intervention today. Further plan pending results of procedure. Patient is scheduled for outpatient follow-up on 07/13/23.
[2023-06-22 08:31] LABS: Hemoglobin 14.1 g/dL (13.0-16.5); Mean Corp Hgb Conc 31.3 g/dL (32-36); Mean Corpuscular Hgb 29.4 pg (27.0-32.0); Mean Corpuscular Volume 93.9 fL (80-94); Mean Platelet Vol. 11.6 fl (6.2-12.0); Platelet Count 252 K/mm3 (150-450); Red Blood Count 4.79 M/mm3 (4.6-6.2); White Blood Count 5.4 K/mm3 (4.4-11.0)
[2023-06-22 08:56] LABS: Anion Gap 3 (5-15); BUN 16 mg/dL (7-18); BUN/Creat Ratio 13.8 RATIO (10-20); Calcium,Total 9.3 mg/dL (8.5-10.1); Chloride 105 mmol/L (98-107); Creatinine, Serum 1.16 mg/dL (0.70-1.30); EST Glomerular Filtration Rate 64 mL/min (>60); Est Glom Filt Rate - Afr Amer 78 mL/min (>60); Estimated Creatinine Clearance 59.69 ml/min; Glucose 107 mg/dL (74-106); Potassium 4.6 mmol/L (3.5-5.1); Sodium Level 138 mmol/L (136-145)
--- NOTE | 2023-06-22 10:37 | PCM.OPRPT ---
Report of Operation Date of Procedure: 06/22/23 Pre-Operative Diagnosis: venous insufficiency with ulceration, bilateral lower extremities Post-Operative Diagnosis: same Surgery/Procedure Performed:: Venogram IVC IVUS IVC, bilateral common/external iliac veins Description of Surgical Findings:: Right external iliac compression 48%; left common iliac compression 40% with dual common iliac vessels Surgeon: Ankit Alvarenga Type of Anesthesia: Local and Sedation,Conscious Estimated Blood Loss (mL): 2 Description of Procedure: HPI: Patient is an 83-year-old male whose had worsening bilateral lower extremity edema and right lower extremity venous ulceration that ultimately resolved. He had venous reflux studies which revealed isolated great saphenous reflux on the right below the knee and accessory saphenous reflux on the left below the knee. Given the severity of his venous insufficiency symptoms and relatively limited reflux it was felt that the assessment of central venous system was appropriate. Taken now for venogram with possible intervention. Description of procedure: Upon obtaining form consent and verification correct patient procedure site patient was taken to the [facility] where he was positioned prepped and draped in you sterile fashion. Timeout was then performed conscious ideation ministered Versed and fentanyl. Skin overlying the right common femoral vein anesthetized 1% lidocaine the vessel accessed with micropuncture needle wire under ultrasound guidance. This then changed for micropuncture sheath through which hand-injection ilio caval venogram was performed which revealed satisfactory postoperative extravasation of dissection. Through the micropuncture sheath Bentson wire was advanced and the micropuncture sheath exchanged for a 5 Jamaican sheath. Next skin overlying the left common femoral vein is anesthetized 1% lidocaine the vessel accessed under ultrasound guidance with a micropuncture needle wire. This then exchanged out for micropuncture sheath through which injection ilio caval venogram was performed which revealed widening of the left common iliac vein which suggested compression. Through the micropuncture sheath a Glidewire advantage was advanced and the micropuncture sheath exchanged for a 10 Jamaican sheath. Through the 10 Jamaican sheath intravascular sound probe was advanced and recorded pullback of the IVC, left common iliac vein, left external vein was performed. Next the right common femoral 5 Jamaican sheath exchanged for a second 10 Jamaican sheath and the intravascular sound probe withdrawn from the left and advanced via the right and recorded pullback of the IVC, right common iliac vein, right external leg vein was performed. The left iliac system evaluation revealed 40% compression of the common iliac vein just inferior to the confluence however he also had a dual common iliac system just inferior to this with each vessel approximately 7 mm in diameter and equal in size. There is no further left sided compression. Evaluation of the right iliac system revealed 48% compression of the external iliac vein. The right iliac vein was borderline threshold for intervention and given the patient's bilateral symptoms and presence of some reflux it was felt that central intervention at this point time was not indicated. Plan would be to potentially treat his reflux first and assess his symptom response. If continued significant symptoms then treatment of the right external iliac vein would be the next as it can be done independent of the left iliac system. And then depending on his results after resolution of his compression on the right we could consider options for the left common iliac. As such since no interventions were performed the wires and catheter withdrawn and the sheaths were withdrawn and manual pressure held for 10 minutes after satisfactory hemostasis was noted. Patient then taken to the recovery room for bedrest prior to discharge to home.
== END 2023-06-22 13:50 | disposition home or self-care (01) ==
PROVIDERS: PCP Family Medicine; Referring Provider Surgery Trauma Surgery; Visit Provider Surgery Trauma Surgery
DX: I87.1 Compression of vein (principal); L97.919 Non-pressure chronic ulcer of unspecified part of right lower leg with unspecified severity; L97.929 Non-pressure chronic ulcer of unspecified part of left lower leg with unspecified severity; I48.0 Paroxysmal atrial fibrillation; I87.2 Venous insufficiency (chronic) (peripheral); Z87.891 Personal history of nicotine dependence; I10 Essential (primary) hypertension; Z79.01 Long term (current) use of anticoagulants; Z79.899 Other long term (current) drug therapy
CPT/HCPCS: 36010; 36415; 37252; 37253; 75825; 76937; 80048; 85027; 99152; 99153; C1753; C1769; C1894; J7040

== ENCOUNTER 2023-07-24 21:54 | Emergency (ER) | payer MEDICARE, BC, SELFPAY ==
[2023-07-24 21:55] VITALS: BP 158/94; PULSE 105; RESP 18; TEMP 38; O2SAT 97; BMI 27.4
[2023-07-24 22:47] LABS: Mucous, Urine 0 SEEN /hpf (<or=2+)
[2023-07-24 22:49] LABS: Absolute Neutrophil Count 10.8 X10^3/uL (2.0-7.7); Basophil# 0.02 X10^3/uL; Basophil% 0.2 % (0-1); Color, Urine Yellow (Yellow); Eosinophil# 0.08 X10^3/uL; Eosinophils% 0.7 % (0-5); Glucose, Dipstick Normal (Normal); Hemoglobin 14.7 g/dL (13.0-16.5); Ketone-Dipstick 5 mg/dl (Negative); Leukocyte Esterase-Dipstick 500 /ul (Negative); Mean Corpuscular Hgb 29.3 pg (27.0-32.0); Mean Corpuscular Volume 91.6 fL (80-94); Mean Platelet Vol. 12.3 fl (6.2-12.0); Monocyte# 0.38 X10^3/uL; Monocyte% 3.2 % (0-10); NRBC Flagged by Analyzer 0 % (0-5); Neutrophil # 10.77 X10^3/uL (2.7-7.7); Neutrophil % 90.6 % (47-70); Nitrite-Dipstick Negative (Negative); Occult Blood-Urine 150 /ul (Negative); POSITIVE DIFFERENTIAL YES; Platelet Count 194 K/mm3 (150-450); Protein-Dipstick 30 mg/dl (Negative); RBC Distribution Width CV 13.4 % (11.6-14.6); RBC Distribution Width SD 45.8 fl (35.1-43.9); Red Blood Count 5.02 M/mm3 (4.6-6.2); Urine Bilirubin Dipstick Negative (Negative); Urine Clarity Cloudy (Clear); Urine Urobilinogen 4 mg/dl (Normal); White Blood Count 11.9 K/mm3 (4.4-11.0)
[2023-07-24 22:59] LABS: Differential Indicated SCAN CRITERIA MET
--- NOTE | 2023-07-24 23:03 | EX.ED.DYSGE1 ---
HPI History of Present Illness Chief Complaint: Complaint Informant: patient Narrative Narrative: Patient is an 83-year-old male with history of atrial fibrillation and hypertension as well as history of UTIs (last one was 2 years ago per patient and ) presenting with frequency and fever that developed today. Patient states he felt fine yesterday and felt okay this morning. He does normal routine. As the afternoon progressed he started to feel shaky and cold. He noticed urinary frequency. checked his temperature at home and was 102 ?F. He took 2 Advil. Fever has been improving. Denies any URI symptoms or recent cough. Denies any nausea, vomiting or abdominal pain. Notes for the past month or so he has been doing with episodes of vertigo that are worse when he moves his head or first gets up in the morning. Also notes that he is following with Dr. Estrada for a benign mass along his right jaw that is scheduled to be removed. Does have chronic tinnitus which is unchanged. No rash reported. PFSH [facility] Medical History Acute cystitis with hematuria Arthritis Back pain Bilateral lower extremity edema BPH (benign prostatic hyperplasia) Cardiology follow-up encounter Chronic prostatitis CPAP (continuous positive airway pressure) dependence Essential (primary) hypertension Former smoker H/O Mohs micrographic surgery for skin cancer History of atrial fibrillation History of hiatal hernia Lumbar and sacral osteoarthritis Lumbar degenerative disc disease Lumbar disc displacement without myelopathy Paroxysmal atrial fibrillation Phlebitis of superficial vein of right lower extremity Prostate disease Sleep apnea Urinary frequency Urinary tract infection with hematuria Home Medications metoprolol succinate 50 mg tablet,extended release 24 hr (Toprol XL) 25 mg (1/2 x 50 mg) PO DAILY #90 tabs 05/17/23 [Rx Last Taken 06/22/23] rivaroxaban 20 mg tablet (Xarelto) 20 mg PO QPM #90 tabs 06/23/23 [Rx Last Taken Unknown] lisinopril 20 mg tablet 20 mg PO DAILY #90 tabs 07/21/23 [Rx Last Taken Unknown] ciprofloxacin HCl 500 mg tablet (Cipro) 500 mg PO BID #14 tabs 07/25/23 [Rx Last Taken Unknown] Allergy/AdvReac Type Severity Reaction Status Date / Time No Known Allergies Allergy Verified 07/24/23 21:55 Family History Mother Myocardial infarction Father Colon cancer Sister Myocardial infarction Surgical History History of eye surgery History of left heart catheterization (2011) History of lumbar discectomy History of prostatectomy History of transurethral resection of prostate Social History Smoking Status: Former smoker how long ago did patient quit smokin03/02/1987 alcohol intake: current alcohol intake frequency: a few times a week substance use type: does not use caffeine: No ROS ROS ED Constitutional Constitutional ED: Reports chills and fever(s) Eyes Eyes: Reports other; Denies diplopia ENT ENT ED: Reports other Details: vertigo Cardiovascular Cardiovascular: Denies chest pain Respiratory/Chest Respiratory/Chest: Denies cough Gastrointestinal Gastrointestinal: Denies abdominal pain, diarrhea, nausea or vomiting Genitourinary Genitourinary ED: Reports urinary frequency; Denies dysuria or hematuria Musculoskeletal Musculoskeletal: Denies arthralgias or myalgias Integumentary Denies rash Neurologic Neurologic: Denies headache(s) or weakness Psychiatric Psychiatric: Denies anxiety Hematologic/Lymphatic Hematologic/Lymphatic: Denies easy bleeding or easy bruising EXAM Physical Exam Const Vital Signs: 07/24/23 21:55 07/24/23 22:30 07/24/23 23:19 Temperature 100.4 F H Temperature Source Temporal Pulse Rate 105 H 100 Respiratory Rate 18 20 H Blood Pressure 158/94 H 129/83 H Blood Pressure Mean 115 98 Pulse Ox 97 93 Oxygen Delivery Method Room Air Nasal Cannula Oxygen Flow Rate (L/min) 2 07/24/23 23:30 07/25/23 00:00 07/25/23 01:00 Temperature 98.7 F 99 F 98 F Temperature Source Temporal Temporal Temporal Pulse Rate 96 95 96 Respiratory Rate 18 17 20 H Blood Pressure 138/77 H 125/73 H 119/71 Blood Pressure Mean 97 90 87 Pulse Ox 93 96 96 Oxygen Delivery Method Nasal Cannula Oxygen Flow Rate (L/min) 07/25/23 01:00 07/25/23 02:00 07/25/23 03:00 Temperature 98.1 F 98.7 F Temperature Source Temporal Temporal Pulse Rate 96 89 87 Respiratory Rate 20 H 16 18 Blood Pressure 119/71 112/87 H 109/71 Blood Pressure Mean 87 95 83 Pulse Ox 96 97 96 Oxygen Delivery Method Oxygen Flow Rate (L/min) 07/25/23 03:00 07/25/23 03:30 Temperature Temperature Source Pulse Rate 87 86 Respiratory Rate 18 16 Blood Pressure 109/71 109/87 H Blood Pressure Mean 83 94 Pulse Ox 96 96 Oxygen Delivery Method Oxygen Flow Rate (L/min) Positive well nourished and well developed General Appearance ED: well developed and NAD HEENT Reports TM's clear and moist mucous membranes Tympanic Membrane ED: Yes TM's clear Eyes PERRL and EOMs intact bilaterally Neck supple and no JVD Chest Wall inspection of chest normal and palpation of chest normal Resp normal respiratory effort and clear to auscultation bilaterally Cardio regular rate, regular rhythm and no murmurs GI normal to inspection, nondistended, normoactive bowel sounds and non-tender Palpation: soft; Negative for guarding Back/Spine no CVA tenderness Extremity Extremity Narrative: pedal edema present- chronic General Extremety ED: Yes edema General Extremity: edema Neuro oriented x3 Sensorium / Orientation: alert Motor Exam: Negative for general weakness Psych mental status grossly normal Skin no rashes or lesions noted and no wounds MDM MDM MDM Narrative Medical decision making narrative: Patient is evaluated for fever, chills and urinary frequency. Does have a history of urinary tract infection. Patient meets SIRS criteria upon arrival to the ER. He is requiring supplemental oxygen in the ER was not claiming respiratory symptoms or cough. Will screen for flu, COVID and RSV as well as urinary tract infection perform a sepsis workup including a lactate. Overall patient is nontoxic-appearing. Is given Tylenol for his continued fever in the ER. Patient's fever and vital signs improved while in the emergency room. He is ambulated on room air and is now 93%. He does have a mild leukocytosis of 11.9. Lactate initially is elevated at 2.3 but after 500 cc bolus it is improved to 1.3. Kidney functions as baseline and a largely unremarkable BMP with creatinine of 1.1. Urinalysis is highly consistent with urinary tract infection with 500 leukocyte esterase greater than 100 white blood cells and 4+ bacteria. Urine culture is sent and blood cultures are also pending. Given that he does meet sepsis criteria and is presenting with fever and pretty rapid onset of symptoms I did offer admission however patient would like to try outpatient therapy. Given that his lactate improved and he is only had 24 hours of symptoms I think is a reasonable attempt. Is given a dose of Rocephin in the ER and will start on Cipro based on prior urine culture results. Patient and agreeable with plan of care. Patient is given return precautions. Workup otherwise unremarkable and patient discharged home in stable condition. Lab Data Attestation: I reviewed the patient's lab results. Labs: Laboratory Results - last 24 hr 07/24/23 07/24/23 07/25/23 22:34 23:04 00:40 WBC 11.9 H RBC 5.02 Hgb 14.7 Hct 46.0 MCV 91.6 MCH 29.3 MCHC 32.0 RDW Std Deviation 45.8 H RDW Coeff of Chastity 13.4 Plt Count 194 MPV 12.3 H Immature Gran % (Auto) 0.300 Neut % (Auto) 90.6 H Lymph % (Auto) 5.0 L Morgan % (Auto) 3.2 Eos % (Auto) 0.7 Baso % (Auto) 0.2 Absolute Neuts (auto) 10.8 H Absolute Lymphs (auto) 0.60 L Nucleated RBC % 0 Differential Comment SCANNED PT 21.5 H INR 1.9 APTT 34.4 Sodium 140 Potassium 4.5 Chloride 110 H Carbon Dioxide 23.0 Anion Gap 7 BUN 18 Creatinine 1.10 Estim Creat Clear Calc 62.95 Est GFR (MDRD) Af Amer 83 Est GFR (MDRD) Non-Af 68 BUN/Creatinine Ratio 16.4 Glucose 116 H Lactic Acid 2.3 H* 1.3 Calcium 9.0 Total Bilirubin 0.80 AST 12 L ALT 15 L Alkaline Phosphatase 84 Total Protein 7.0 Albumin 3.4 Globulin 3.6 Albumin/Globulin Ratio 0.9 Urine Color Yellow Urine Clarity Cloudy Urine pH 6.0 Ur Specific [place] 1.020 Urine Protein 30 H Urine Glucose (UA) Normal Urine Ketones 5 H Urine Occult Blood 150 H Urine Nitrite Negative Urine Bilirubin Negative Urine Urobilinogen 4 H Ur Leukocyte Esterase 500 H Urine RBC 5-10 SEEN Urine WBC >100 SEEN Ur Squamous Epith Cells 0-5 SEEN Urine Bacteria 4+ Urine Mucus 0 SEEN Radiography Chest X-Ray - ED: 1 View, Read by ED Physician, Read by Radiologist and No Acute Disease Diagnostic Testing: Clinical Impression(s) from Imaging Studies Chest X-Ray 07/24/23 23:11 IMPRESSION: No radiographic evidence of acute cardiopulmonary disease. Electronically Signed: Clayton Bui MD at 23:32 EST , Rhythm Strip Rhythm Strip: Sinus Tach Rate: 103 Ectopy: None EKG Initial EKG: Attestation: I personally reviewed and interpreted this EKG as follows: Interpretation: Sinus Tachycardia Comments: Sinus tachycardia rate of 103 bpm First-degree AV block with a CO interval of 232 Left axis deviation Moderate voltage criteria for LVH Normal ST segments Compared to prior EKG patient is now tachycardic into the bradycardic Discharge Plan Triage Chief Complaint: Complaint ED Provider: Claudette Fernandez Dx/Rx/DC Orders Clinical Impression: Fever, Acute UTI Instructions: ED Fever Control (Adult), ED Urinary Tract Infections in Men Prescriptions: New ciprofloxacin HCl [Cipro] 500 mg tablet 500 mg PO BID Qty: 14 0RF No Action metoprolol succinate [Toprol XL] 50 mg tablet extended release 24 hr 25 mg PO DAILY Qty: 90 3RF Xarelto 20 mg tablet 20 mg PO QPM Qty: 90 3RF Rx Instructions: must administer with evening meal lisinopril 20 mg tablet 20 mg PO DAILY Qty: 90 3RF Primary Care Provider: Briseida Vergara Referrals: Briseida Vergara MD [Primary Care Provider] - Activity Restrictions/Additional Instructions: You have been given the first dose of IV antibiotics in the ER. Start taking the oral antibiotics tomorrow. Take the entire course of antibiotics. If your symptoms worsen especially over the next 24 to 40 hours please return to the emergency room as we discussed. Make sure you are drinking plenty of fluids. Take Tylenol as needed for fever. It is not recommended that you take anti-inflammatory such as Aleve or Advil since you are on the Xarelto. Disposition Disposition: Home, Self Care Discharge Date/Time: 07/25/23 03:32
[2023-07-24 23:06] LABS: ALB/GLOB Ratio 0.9 RATIO (0.9-2.4); AST(SGOT) 12 U/L (15-37); Alanine Aminotransfer ALT/SGPT 15 U/L (16-61); Albumin, Serum 3.4 g/dL (3.2-5.0); Alkaline Phosphatase 84 U/L (45-117); Anion Gap 7 (5-15); BUN 18 mg/dL (7-18); BUN/Creat Ratio 16.4 RATIO (10-20); Chloride 110 mmol/L (98-107); EST Glomerular Filtration Rate 68 mL/min (>60); Est Glom Filt Rate - Afr Amer 83 mL/min (>60); Estimated Creatinine Clearance 62.95 ml/min; Globulin 3.6 g/dL (2.2-4.2); Glucose 116 mg/dL (74-106); Potassium 4.5 mmol/L (3.5-5.1); Sodium Level 140 mmol/L (136-145)
[2023-07-24 23:07] LABS: Differential Comment SCANNED
--- NOTE | 2023-07-24 23:11 | RAD_ITS ---
EXAM: XR CHEST, 1 VIEW CLINICAL INDICATION: fever TECHNIQUE: Frontal view of the chest. COMPARISON: 01/31/2023 FINDINGS: LUNGS AND PLEURAL SPACES: Unremarkable. No consolidation or edema. No pneumothorax. No effusion. HEART: Unremarkable. Cardiac silhouette not enlarged. MEDIASTINUM: Central airways and mediastinal contour are unremarkable. BONES/JOINTS: Unremarkable. No acute fracture. SOFT TISSUES: Unremarkable. RAD/Chest 1 View (Portable) IMPRESSION: No radiographic evidence of acute cardiopulmonary disease. Electronically Signed: Clayton Bui MD at 23:32 EST ,
[2023-07-24 23:14] LABS: Bacteria 4+ /hpf (None Seen)
[2023-07-24 23:15] LABS: Squamous Epithelial Cells - UA 0-5 SEEN /hpf (0-5); White Blood Cells >100 SEEN /hpf (0-5)
[2023-07-24 23:16] LABS: Red Blood Cells-Urine 5-10 SEEN /hpf (0-5)
[2023-07-24 23:19] VITALS: BP 129/83; PULSE 100; RESP 20; O2SAT 93
[2023-07-24] MEDS: Acetaminophen 325 MG Tablet 650 MG PO (23:19)
[2023-07-24 23:23] LABS: Lactic Acid 2.3 mmol/L (0.4-1.9)
[2023-07-24 23:30] VITALS: BP 138/77; PULSE 96; RESP 18; TEMP 37.1; O2SAT 93
[2023-07-24 23:34] LABS: International Normalized Ratio 1.9; Partial Thromboplast Time 34.4 Seconds (24.1-36.2); Prothrombin Time (Protime)PT. 21.5 SECONDS (11.7-14.9)
[2023-07-24] MEDS: 0.9% Normal Saline (500mL Bag) 500 ML 999 ML IV (23:57)
[2023-07-25] VITALS: BP 125/73; PULSE 95; RESP 17; TEMP 37.2; O2SAT 96
[2023-07-25 01:00] VITALS: BP 119/71; PULSE 96; RESP 20; TEMP 36.6; O2SAT 96
[2023-07-25 01:13] LABS: Lactic Acid 1.3 mmol/L (0.4-1.9)
[2023-07-25 02:00] VITALS: BP 112/87; PULSE 89; RESP 16; TEMP 36.7; O2SAT 97
[2023-07-25] MEDS: Ceftriaxone 1 GM/50 ML BAG IV (02:37)
[2023-07-25 02:44] LABS: Reflex Lactate? Y
[2023-07-25 03:00] VITALS: BP 109/71; PULSE 87; RESP 18; TEMP 37.1; O2SAT 96
[2023-07-25 03:30] VITALS: BP 109/87; PULSE 86; RESP 16; O2SAT 96
== END 2023-07-25 03:32 | disposition home or self-care (01) ==
LOC: ED 22:57
PROVIDERS: Emergency Provider Emergency Medicine; PCP Family Medicine; Visit Provider Emergency Medicine
DX: N39.0 Urinary tract infection, site not specified (principal); I48.0 Paroxysmal atrial fibrillation; I10 Essential (primary) hypertension; R74.8 Abnormal levels of other serum enzymes; Z11.52 Encounter for screening for COVID-19; Z87.440 Personal history of urinary (tract) infections; Z87.891 Personal history of nicotine dependence
CPT/HCPCS: 71045; 80053; 81001; 83605; 85025; 85610; 85730; 87040; 87077; 87086; 87088; 87186; 87631; 93005; 96365; 99284; J7040; J7050; A4216

== ENCOUNTER → 2023-07-28 | Outpatient (CLI) | payer MEDICARE, BC, SELFPAY | END | disposition home or self-care (01) | LOC: LABSPEC 15:37 | PROVIDERS: PCP Family Medicine; Referring Provider Nurse Practitioner Family; Visit Provider Nurse Practitioner Family | DX: N39.0 Urinary tract infection, site not specified (principal) | CPT/HCPCS: 87086 ==

== ENCOUNTER 2023-08-28 06:08 | Day surgery (SDC) | payer MEDICARE, BC, SELFPAY ==
[2023-08-28] VITALS (8 sets, daily range): BP systolic 116–159; BP diastolic 59–90; PULSE 66–96; RESP 16; TEMP 36.7–37.1; O2SAT 91–95; BMI 27.1
[2023-08-28] MEDS: Lactated Ringers 1,000 ML 15 ML IV (06:51)
--- NOTE | 2023-08-28 07:30 | MASS_PTH ---
PATHOLOGY RESULTS PATIENT: ERIN YAÑEZ LOC: [facility] [place] U#:[id number] AGE/SX: 83/M ROOM: RE08/28/[address]: Dr. Spenser Estrada MD : [id number] BED: DIS: 08/28/2023 SPEC #: [id number] RECD: 08/28/23 12:46 STATUS: MANNY RENDON #: [id number] ELIAS: 08/28/23 07:[address]: Spenser Estrada DEPT: SURGICAL PATHOLOGY RECD BY: Yumiko Fernández ENTERED: 08/28/23 12:46 SP TYPE: Mass OTHR DR: Dr. 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 AM:mojgan 08/29/2023 COMMENT Reference is made to the patient's previous fine needle aspiration ([id number]) in which a few atypical cells in the background of cellular debris and inflammatory cells was identified. Case has been reviewed in consultation with Dr. Snell who concurs with the above diagnosis. IDC:SJ MICROSCOPIC DESCRIPTION Slides are reviewed. 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 GROSS DESCRIPTION Received in fixative is one container labeled with the patient's name and designated right neck mass. The specimen consists of a cystic, light prince-pink tissue measuring 3.5 x 1.7 x 0.7 cm. The specimen is inked and serially sectioned to reveal a cystic space occupying approximately 95% of the tissue. The specimen is serially sectioned and totally submitted in two cassettes. / AM:mojgan 08/28/2023 TC:5 CPT: 10351
--- NOTE | 2023-08-28 07:35 | PCM.DC.SUM ---
Providers Primary Care Physician: Dr. Briseida Vergara MD Reason For Visit: Excision, Mass, RIGHT NECK, Medications at Discharge Home Medications rivaroxaban 20 mg tablet (Xarelto) 20 mg PO QPM #90 tabs 06/23/23 lisinopril 20 mg tablet 20 mg PO DAILY #90 tabs 07/21/23 metoprolol succinate 50 mg tablet,extended release 24 hr See Rx Instructions .Route .COMPLEX #90 tabs 07/27/23 Weight / BMI Weight Weight: 98.6 kg Body Mass Index (BMI) 27.1 D/C Instructions Discharge Diet: No restrictions Additional Instructions: Keep incision dry until 08/30/23 Please Follow Up With: Spenser Estrada MD When: tomorrow Meaningful Use Info Meaningful Use Diagnoses (Choose all that apply): None applicable Discharge Plan Admission Attending Provider: Spenser Estrada Primary Care Provider: Briseida Vergara Discharge Orders/Prescriptions Prescriptions: No Action Xarelto 20 mg tablet 20 mg PO QPM Qty: 90 3RF Rx Instructions: must administer with evening meal lisinopril 20 mg tablet 20 mg PO DAILY Qty: 90 3RF metoprolol succinate 50 mg tablet extended release 24 hr See Rx Instructions .ROUTE .COMPLEX Qty: 90 3RF Dose Instruction: TAKE 1 TABLET BY MOUTH EVERY DAY Rx Instructions: TAKE 1 TABLET BY MOUTH EVERY DAY Referrals / Follow Up: Briseida Vergara MD [Primary Care Provider] - Disposition Disposition (needs filled in before D/C Order can be placed): Home, Self Care
[2023-08-28] MEDS: Lidocaine 1% /Epi 1:100 (20ml) 20 ML Vial (08:02)
[2023-08-28] MEDS: Bacitracin 500 UNITS/GM PACKET (08:55)
--- NOTE | 2023-08-28 09:12 | OP.PCM_ITS ---
Report of Operation Date of Procedure: 08/28/23 Pre-Operative Diagnosis: right neck mass Post-Operative Diagnosis: same Surgery/Procedure Performed:: Excision right neck mass Description of Surgical Findings:: cystic mass Surgeon: Spenser Estrada bike shop manager: Italo Moore Type of Anesthesia: General Anesthesiologist: Matthias Polanco Specimen's removed: right neck mass Drains: 1 kellie Estimated Blood Loss (mL): minimal Description of Procedure: The patient was taken to the operating room on 08/28/23.. He was placed in supine position on the operating table. He was given sufficient general endotracheal anesthesia. The Nim facial monitor was attached to the patient and it's functionality was confirmed. The right neck and mary-face and neck were prepped and draped sterilely. A 4 cm neck incision was made with a 15 blade. This was carried down through the skin. Hemostasis was achieved with bipolar cautery. The platysma was identified and then incised with a 15 blade. The mass was readily apparent. Next blunt and sharp dissection were used to dissect around the mass. Vessels were addressed with bipolar cautery. A large vein was kept intact deep to the mass. Dissection was carried superiorly. The mass was attached to the inferior most portion of the parotid. In this area the mass was clamped,cut and ligated and then sent for permanent section. The ligation was carried out with 3-0 silk. I then irrigated the wound. Hemostasis was ensured with bipolar cautery. Next a Kellie drain was placed. The platysma was closed with 4-0 Vicryl. The skin was closed with 4-0 Vicryl as well as 6-0 nylon. The drain was sewn to the skin with 3-0 silk. Antibiotic ointment was then applied. A pressure dressing was then applied. The patient was then awoken and brought to recovery room in stable condition blood loss minimal, replacement none. Sponge, needle, instrument count were correct at the end of the procedure. Dr. Moore, the apartment assistant manager, was invaluable in assisting with the dissectio n of the mass.
== END 2023-08-28 10:58 | disposition home or self-care (01) ==
LOC: SDC 06:12 → AC 06:12
PROVIDERS: PCP Family Medicine; Referring Provider Otolaryngology; Visit Provider Otolaryngology
PROC: (CPT 42410; principal; 2023-08-28 07:00)
DX: D11.0 Benign neoplasm of parotid gland (principal); I48.0 Paroxysmal atrial fibrillation; Z79.899 Other long term (current) drug therapy; Z79.01 Long term (current) use of anticoagulants; I10 Essential (primary) hypertension; Z87.891 Personal history of nicotine dependence; Z85.828 Personal history of other malignant neoplasm of skin; K09.8 Other cysts of oral region, not elsewhere classified
CPT/HCPCS: 11424; 00300; 88305; J7120; C1729; J2405

== ENCOUNTER → 2023-12-06 | Outpatient (CLI) | payer MEDICARE, BC, SELFPAY ==
--- NOTE | 2023-12-06 16:30 | STRESSREP ---
Stress Test Report Pharmacologic myocardial perfusion stress test. 83-year-old man with a history of chest pain Resting EKG demonstrates sinus rhythm with a rate of 62 bpm. Resting blood pressure is 122/74 mmHg. 0.4 mg of regadenoson was infused per usual protocol followed by rapid intravenous saline flush injection. Continuous EKG monitoring was performed. The maximum heart rate was 72 bpm which was 51% of max impacted heart rate the maximum workload was 1 metabolic equivalent. At rest there were no ST or T wave changes noted to suggest ischemia and at peak infusion nonspecific ST changes were noted which did not meet the criteria for ischemia. No clinical angina is noted. The final blood pressure was 118/64 mmHg. Myocardial perfusion protocol. 14.2 mCi of technetium 99m sestamibi was injected at rest. 0.4 mg of regadenoson was infused per usual protocol. At peak infusion 43.8 mCi of technetium 99m sestamibi was injected stress images were obtained stress and rest images were reconstructed and compared in the short axis vertical long and horizontal long axis. Gated images were also obtained. Perfusion SPECT analysis: Review of the stress images demonstrate normal uptake of tracer noted in all areas of the myocardium. The resting images similar demonstrated normal uptake of tracer noted in all areas of the myocardium. No areas of reversibility are noted to suggest ischemia and no previous infarct is noted. Gated SPECT analysis: The gated ejection fraction is 64%. Conclusion: Normal pharmacologic myocardial perfusion stress test. Preserved ejection fraction.
== END | disposition home or self-care (01) ==
LOC: CVS 06:16
PROVIDERS: PCP Family Medicine; Referring Provider Physician Assistant Medical; Visit Provider Physician Assistant Medical
DX: R07.9 Chest pain, unspecified (principal)
CPT/HCPCS: 78452; 93017; A9500; A4216; J2785

== ENCOUNTER 2024-01-09 07:30 | Outpatient (RCR) | payer MEDICARE, BC, SELFPAY ==
--- NOTE | 2023-12-06 11:28 | HP.PTEVAL_ITS ---
Patient's Visit Information Visit Information Visit Information: ERIN YAÑEZ is a 83 year old M referred to Physical Therapy by Dr. Briseida Vergara MD with a diagnosis of vertigo. Date of Evaluation: 12/06/23 Physical Therapist: Hortencia Jaimes MPT Visit Plan Frequency: 2x /Week Duration: 2 Months Plan: 2X/ week for 8 weeks for testing and tx of positional vertigo (L was questionable positive), VOR testing, balance testing with HEP Advised pt to not look down for long periods of time today Subjective Subjective: His dizziness started about a month ago. He notices it more when he turns to the right. The dizziness lasts about 1 min (room spins)) and then it will stop. He had a nuclear stress test this morning and he really had it bad getting off the table. He says that dizziness is really bad. His head feels light and full of something. He has a GARCIA about once a day but that is not new for him. Pt has also notice that sometimes he will be looking at his phone and then look at the TV and he will feel off. He reports that he has neuropathy and his balance has been bad for years. . Objective Objective: -R Hallpike for nystagmus or dizziness Questionable +L Hallpike for pt feeling like the wall was moving and possible very slow beat torsional nystagmus. Treated with L Eply (pt struggled to roll to his R side due to fear of falling off the table and could not get him into full position) and re-tested Hallpike and was slower beat and less than 20 seconds (very little wall movement) and re did L EPLY with better movement/roll to the R side. Pt felt fine sitting up. When he went to stand up he felt more like he was being pulled to his R side and had to reach out to the wall. Had the pt walk with CGA to SBA with the wall in reach for a few minutes and he started to feel better. Instructed pt to let us know if it gets worse but to let things settle today. I walked the pt out ot his car with SBA and he walked out fine. Noticed though that he walks with no head turns and looks straight ahead. Balance/Special Test Scores Dizziness Score: 50 Goals Goal 1:: I HEP Goal Time Frame: 4-6 Weeks Goal 2:: Abolish dizziness when he rolls over in bed Goal Time Frame: 4-6 Weeks Goal 3:: Be able to walk with horizontal and vertical head turns without LOB or dizziness Goal Time Frame: 4-6 Weeks Goal 4:: Check VOR if still having issues with quick movements with his head Rehabilitation Potential Rehabilitation Potential: Good Anticipated Interventions Patient/Client Instruction: Educate patient on: Condition and Plan of Care For the Purpose of:: To increase ROM, To improve nutrient delivery to tissue, To improve muscle performance and motor function, To improve ability to perform ADL's, To increase tolerance to activity/condition/position, To improve performance and independence with ADL's, To decrease level of supervision to perform tasks, To improve ability of physical actions for home/community/work/leisure, To improve gait and locomotor functions, To improve health of tissue, To increase flexibility/ROM, To improve balance and To improve safety with gait Therapeutic Exercise to Include: Strength training, Endurance training, Balance training, Body mechanics, Postural training, Flexibilty training, Gait and locomotor training, Neuromotor development and Active ROM For the Purpose of:: To increase ROM, To improve nutrient delivery to tissue, To improve muscle performance and motor function, To improve ability to perform AD L's, To increase tolerance to activity/condition/position, To improve performance and independence with ADL's, To decrease level of supervision to perform tasks, To improve ability of physical actions for home/community/work/leisure, To improve health of tissue, To decrease soft tissue restriction, To increase flexibility/ROM, To improve balance and To improve safety with gait Functional Training to Include: Gait training For the Purpose of:: To improve gait and locomotor functions and To improve safety with gait Text: Thank you for the opportunity to evaluate your patient. For Medicare and Medicare HMO plans, please review the plan of care and approve it. It will need to be FAXED BACK to us at [phone] for Medicare purposes. For Medicare only, by signing this I certify the plan of care. Please let me know if there are questions or concerns regarding this plan of care. Physician Signature: Date:
--- NOTE | 2024-03-26 08:16 | HP.PT.NRP ---
Patient Information Patient Information: ERIN YAÑEZ was seen in my office for initial evaluation on 12/06/23. The following Plan of Care was established for this patient: POC Established Initial Frequency: 2x /Week Initial Duration: 2 Months Anticipated Interventions Patient/Client Instruction: Educate patient on: Condition and Plan of Care For the Purpose of:: To increase ROM, To improve nutrient delivery to tissue, To improve muscle performance and motor function, To improve ability to perform ADL's, To increase tolerance to activity/condition/position, To improve performance and independence with ADL's, To decrease level of supervision to perform tasks, To improve ability of physical actions for home/community/work/leisure, To improve gait and locomotor functions, To improve health of tissue, To increase flexibility/ROM, To improve balance and To improve safety with gait Therapeutic Exercise to Include: Strength training, Endurance training, Balance training, Body mechanics, Postural training, Flexibilty training, Gait and locomotor training, Neuromotor development and Active ROM For the Purpose of:: To increase ROM, To improve nutrient delivery to tissue, To improve muscle performance and motor function, To improve ability to perform ADL's, To increase tolerance to activity/condition/position, To improve performance and independence with ADL's, To decrease level of supervision to perform tasks, To improve ability of physical actions for home/community/work/leisure, To improve health of tissue, To decrease soft tissue restriction, To increase flexibility/ROM, To improve balance and To improve safety with gait Functional Training to Include: Gait training For the Purpose of:: To improve gait and locomotor functions and To improve safety with gait Last Seen Last Seen: This patient was last seen in our office 01/09/24. Pertinent comments regarding their Physical therapy will appear below: TINO PT At this point I will be discontinuing this patient from physical therapy. I would be happy to see this patient again in the future if found appropriate by the physician. Thank you! Hortencia Jaimes, MATT Balance/Gait/Functional tests Balance/Special Test Scores Functional Gait Assessment Score: 10 % Disability: 66.6700 Dizziness Score: 50
== END 2024-01-09 19:00 | disposition home or self-care (01) ==
LOC: PT 07:30
PROVIDERS: PCP Family Medicine; Referring Provider Family Medicine; Visit Provider Family Medicine
DX: R42 Dizziness and giddiness (principal)
CPT/HCPCS: 97162; 97530

== ENCOUNTER → 2024-03-19 | Outpatient (CLI) | payer MEDICARE, BC, SELFPAY ==
[2024-03-19 08:54] LABS: Absolute Lymphocyte Count 1.24 X10^3/uL (0.83-4.51); Absolute Neutrophil Count 2.7 X10^3/uL (2.0-7.7); Basophil# 0.04 X10^3/uL; Basophil% 0.8 % (0-1); Eosinophil# 0.21 X10^3/uL; Eosinophils% 4.3 % (0-5); Hematocrit 45.6 % (40-54); Hemoglobin 14.8 g/dL (13.0-16.5); Lymphocyte # 1.24 X10^3/ul (0.83-4.51); Lymphocyte % 25.4 % (19-41); Mean Corp Hgb Conc 32.5 g/dL (32-36); Mean Corpuscular Hgb 30.1 pg (27.0-32.0); Mean Corpuscular Volume 92.9 fL (80-94); Mean Platelet Vol. 11.8 fl (6.2-12.0); Monocyte# 0.65 X10^3/uL; Monocyte% 13.3 % (0-10); NRBC Flagged by Analyzer 0 % (0-5); Neutrophil # 2.72 X10^3/uL (2.7-7.7); Neutrophil % 55.8 % (47-70); Platelet Count 245 K/mm3 (150-450); RBC Distribution Width CV 13.9 % (11.6-14.6); RBC Distribution Width SD 47.2 fl (35.1-43.9); Red Blood Count 4.91 M/mm3 (4.6-6.2); White Blood Count 4.9 K/mm3 (4.4-11.0)
[2024-03-19 09:31] LABS: AST(SGOT) 10 U/L (15-37); Alanine Aminotransfer ALT/SGPT 11 U/L (16-61); Albumin, Serum 3.4 g/dL (3.2-5.0); Alkaline Phosphatase 83 U/L (45-117); Anion Gap 1 (5-15); BUN 13 mg/dL (7-18); BUN/Creat Ratio 14.5 RATIO (10-20); Calcium,Total 9.4 mg/dL (8.5-10.1); Chloride 108 mmol/L (98-107); Cholesterol 174 mg/dL (200); EST Glomerular Filtration Rate 86 mL/min (>60); Est Glom Filt Rate - Afr Amer 104 mL/min (>60); Globulin 3.5 g/dL (2.2-4.2); Glucose 99 mg/dL (74-106); High Density Lipoprotein 59 mg/dL; Potassium 4.6 mmol/L (3.5-5.1); Protein, Total 6.9 g/dL (6.4-8.2); Sodium Level 139 mmol/L (136-145); Triglycerides 103 mg/dL; Very Low Density Lipoprotein 21 mg/dL (5-40)
== END | disposition home or self-care (01) ==
LOC: LAB 08:32
PROVIDERS: PCP Family Medicine; Referring Provider Family Medicine; Visit Provider Family Medicine
DX: I10 Essential (primary) hypertension (principal); I48.0 Paroxysmal atrial fibrillation
CPT/HCPCS: 36415; 80053; 80061; 85025

== ENCOUNTER 2024-12-23 07:15 | Emergency (ER) | payer MEDICARE, BC, SELFPAY ==
[2024-12-23] VITALS (9 sets, daily range): BP systolic 136–175; BP diastolic 81–101; PULSE 67–87; RESP 14–23; TEMP 37.1; O2SAT 96–99; BMI 26.9
--- NOTE | 2024-12-23 07:40 | EX.ED.DYSGE1 ---
HPI History of Present Illness Chief Complaint: Numb/Ting PFSH PFSH Medical History Cancer Ambulates with cane History of edema History of echocardiogram History of stress test H/O Mohs micrographic surgery for skin cancer History of atrial fibrillation Arthritis Prostate disease History of hiatal hernia Former smoker CPAP (continuous positive airway pressure) dependence Sleep apnea Cardiology follow-up encounter Urinary tract infection with hematuria Urinary frequency Bilateral lower extremity edema Phlebitis of superficial vein of right lower extremity Lumbar and sacral osteoarthritis Lumbar disc displacement without myelopathy Lumbar degenerative disc disease Chronic prostatitis Acute cystitis with hematuria Essential (primary) hypertension Back pain Paroxysmal atrial fibrillation BPH (benign prostatic hyperplasia) Home Medications ?Medication ?Instructions ?Recorded ?Last Taken ?Type lisinopril 20 mg tablet 20 mg PO DAILY #90 tabs 06/20/24 Unknown Rx rivaroxaban 20 mg tablet (Xarelto) 20 mg PO QPM #90 tabs 06/20/24 Unknown Rx metoprolol succinate 50 mg 50 mg PO QDAY #90 tabs 08/22/24 Unknown Rx tablet,extended release 24 hr Allergy/AdvReac Type Severity Reaction Status Date / Time No Known Allergies Allergy Verified 12/23/24 07:16 Family History Mother Myocardial infarction Father Colon cancer Sister Myocardial infarction Surgical History History of cardiac catheterization History of transurethral resection of prostate History of eye surgery History of lumbar discectomy History of prostatectomy History of left heart catheterization (2011) Social History Smoking Status: Former smoker how long ago did patient quit smokin03/02/1987 alcohol intake: current alcohol intake frequency: a few times a week substance use type: does not use caffeine: No EXAM Physical Exam Const Vital Signs: 12/23/24 07:16 12/23/24 08:12 12/23/24 08:22 Temperature 98.8 F Temperature Source Oral Pulse Rate 67 73 Respiratory Rate 18 18 Blood Pressure 171/93 H 172/84 H Blood Pressure Mean 119 113 Pulse Ox 98 96 Oxygen Delivery Method Room Air 12/23/24 08:27 12/23/24 08:39 12/23/24 08:42 Temperature Temperature Source Pulse Rate 87 80 Respiratory Rate 17 16 Blood Pressure 175/101 H 170/100 H Blood Pressure Mean 125 123 Pulse Ox 96 98 98 Oxygen Delivery Method Room Air Room Air 12/23/24 08:54 12/23/24 08:57 12/23/24 09:12 Temperature Temperature Source Pulse Rate 83 82 85 Respiratory Rate 17 19 H 14 Blood Pressure 170/100 H 152/86 H 152/86 H Blood Pressure Mean 123 108 108 Pulse Ox 98 99 96 Oxygen Delivery Method Room Air Room Air 12/23/24 09:12 Temperature Temperature Source Pulse Rate 86 Respiratory Rate 23 H Blood Pressure 136/81 H Blood Pressure Mean 99 Pulse Ox 97 Oxygen Delivery Method MDM MDM MDM Narrative Medical decision making narrative: HISTORY OF PRESENT ILLNESS: Chief complaint: Fall, paresthesias 84-year-old male history of A-fib on Xarelto, PAD, hypertension presents with paresthesias that he relates to a fall that he suffered on Monday (12/20/2024). He states he was doing well after the fall but then last night (12/22/2024) approximately 11 PM he went to sleep he was last noted to be normal. He states he woke up at 2 with some tingling in weakness in the left side. He notes it is since gotten worse. Denies any facial droop, slurred speech. REVIEW OF SYSTEMS: Pertinent positives: Fall, head trauma, paresthesias Pertinent negatives: Chest pain PHYSICAL EXAM: Nursing triage notes reviewed, Vital signs reviewed Constitutional: please see mdm HENT: MMM Eyes: Pupils equal round and reactive to light, Extraocular muscles intact Neck: No stridor, no JVD, full neck ROM Lungs: Clear to auscultation, No wheezing or rales. No increased work of breathing, no conversational dyspnea, no accessory muscle use, no nasal flaring. No respiratory distress noted Heart: Regular rate and rhythm, No murmurs, No rubs and No gallops, 2+ distal pulses (radial, femoral, posterior tibial) in all extremities Abdomen: Soft, there is no tenderness, rigidity, rebound or guarding, no obvious peritoneal signs, no palpable pulsatile abdominal masses, no auscultated abdominal bruit : No CVAT Extremities: No edema Neuro: Alert, oriented, at baseline, no obvious cranial nerve deficits, drift in left upper extremity, obvious weakness in left lower extremity, initial NIH of 2 for weakness in left upper and lower extremity Skin: No rash or lesions noted MEDICAL DECISION MAKING: Chief Complaint: please see HPI External records reviewed: Reviewed prior imaging studies: Reviewed CT scan of the brain from 2019 Factors affecting care: which showed no evidence of ICH Social determinants of health: none History obtained from others: none Consults: Stroke radiology, stroke neurology, [facility] ED provider (Dr. Abraham) MDM Narrative: The patient was initially hypertensive with a blood pressure 131/93 otherwise afebrile and nontoxic-appearing. Exam with initial NIH of 2 (drift in left upper and lower extremity) I considered the following differential diagnosis: ICH, CVA, Stroke team called. Given the patient is on Xarelto and his last known well was greater than 4.5 prior to arrival he was not a candidate for TNK. He was a candidate for thrombectomy. I obtained a broad workup to further determine if the patient was suffering from a life-threatening etiology. ALL IMAGES (IF OBTAINED) HAVE BEEN PERSONALLY REVIEWED AND INTERPRETED BY MYSELF. Non-Con CT of the brain read by myself shows obvious posterior ICH. Per radiology note noted subdural hematoma as well as other abnormalities please see report below. CT of the head and neck shows no large vessel occlusion CBC without leukocytosis, severe anemia, no thrombocytopenia. No coagulopathy Awaiting chemistries and troponin Upon reevaluation patient is neurologically remained stable, he was controlling his airway. No indication for endotracheal intubation at this time. Repeat vital signs showed blood pressure 136/81 which is at goal given traumatic subdural hematoma. Given concern for ICH emergency measures were placed including Kcentra, labetalol for hypertension and Keppra for seizure prophylaxis. Discussed with nearest trauma center for immediate transfer for neurosurgical evaluation. Family and patient updated. ICH score 1 The patient and/or family, caregivers express understanding. The patient and/or family, caregivers agrees with the plan. Shared decision making: I will have a discussion with the patient and or visitors regarding risk/benefits of further testing or admission. They will be made aware of of the risk/benefits inherent in this decision they will be given the opportunity to voice understanding. Total critical care time today provided was at least 60 minutes. This excludes separately billable procedures. Critical care time (if documented) is secondary to the patient having high probability of clinically significant/life threatening deterioration in the patient's condition which required my urgent intervention. Impression: 1. Traumatic ICH 2. Chronic anticoagulation Dispo: Transfer to [facility] for definitive trauma care This note was generated with NavigatorMD dictation software. It may contain incorrect words, spelling, and punctuation that were not noted in review of the chart prior to signing. Lab Data Labs: Laboratory Results - last 24 hr 12/23/24 08:07 WBC 5.8 RBC 4.42 L Hgb 13.6 Hct 40.9 MCV 92.5 MCH 30.8 MCHC 33.3 RDW Std Deviation 47.2 H RDW Coeff of Chastity 13.8 Plt Count 186 MPV 11.5 Immature Gran % (Auto) 0.300 Neut % (Auto) 68.3 Lymph % (Auto) 15.9 L [place] % (Auto) 12.8 H Eos % (Auto) 2.4 Baso % (Auto) 0.3 Absolute Neuts (auto) 4.0 Absolute Lymphs (auto) 0.93 Nucleated RBC % 0 PT 31.1 H INR 2.9 APTT 36.2 Sodium Cancelled Potassium Cancelled Chloride Cancelled Carbon Dioxide Cancelled Anion Gap Cancelled BUN Cancelled Creatinine Cancelled Estim Creat Clear Calc Cancelled Est GFR (MDRD) Non-Af Cancelled BUN/Creatinine Ratio Cancelled Glucose Cancelled Calcium Cancelled Troponin T High Sens Cancelled Radiography Chest X-Ray - ED: Read by ED Physician Diagnostic Testing: Clinical Impression(s) from Imaging Studies Brain CT 12/23/24 08:03 IMPRESSION: There is a subdural hematoma on the right measuring 0.5 cm in depth in the temporal region. There is hemorrhage extending along the falx and tentorium on the right with a masslike component posteriorly measuring 5.0 by 2.0 cm, axial image 31/48. There is low-density in the deep white matter on the right and left, and in the right occipital and posterior temporal cortex, which may have an acute infarct component. There is midline shift at the anterior aspect, 0.4 cm towards the left. Critical results were discussed with Dr. Yu by Dr. Nichole at the time of dictation. 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 There is no significant stenosis or occlusion identified in the carotid or vertebral system. There is no significant stenosis or occlusion identified in the intracranial arteries. Reading [facility] Discharge Plan Triage Chief Complaint: Numb/Ting ED Provider: Frankie Yu Dx/Rx/DC Orders Prescriptions: No Action Xarelto 20 mg tablet 20 mg PO QPM Qty: 90 3RF Rx Instructions: must administer with evening meal lisinopril 20 mg tablet 20 mg PO DAILY Qty: 90 3RF metoprolol succinate 50 mg tablet extended release 24 hr 50 mg PO QDAY Qty: 90 3RF Primary Care Provider: Briseida Vergara Referrals: Briseida Vergara MD [Primary Care Provider] - Print Language: Slovak
--- NOTE | 2024-12-23 08:03 | CT_ITS ---
PROCEDURE: STROKE CTA HEAD AND NECK W/CON 12/23/2024 REASON FOR EXAM: NEURO DEFICIT, ACUTE, STROKE SUSPECTED TECHNIQUE: STROKE CTA HEAD AND NECK W/CON Multiplanar Sagittal and Coronal images were obtained. CONTRAST: 100 cc Isovue 370 One or more dose reduction techniques were used (e.g., Automated exposure control, adjustment of the mA and/or kV according to patient size, use of iterative reconstruction technique). RADIATION DOSE SUMMARY: DLP: 880 mGycm COMPARISON: None FINDINGS: Aortic Arch: The ascending aorta is dilated to 4.1 cm in AP diameter. Brachiocephalic and Subclavians: Patent RIGHT Carotid: Right CCA: Patent plaque is noted. Right ICA: Patent Maximum stenosis (NASCET): 0 % Right ECA: Patent LEFT Carotid: Left CCA: Patent plaque is noted. Left ICA: Patent Maximum stenosis (NASCET): 0 % Left ECA: Patent Vertebrals: Patent RIGHT Vertebral: Patent LEFT Vertebral: Patent Anatomy: Unremarkable Aneurysm or avm: None Anterior cerebral arteries: Patent Middle cerebral arteries: Patent Basilar artery: Patent Posterior cerebral arteries: Patent Other major branches of the posterior circulation: Unremarkable Major venous structures: Patent Other findings: Neck: Subdural and parafalcine hematoma is noted, discussed separately. 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 There is no significant stenosis or occlusion identified in the carotid or vert ebral system. There is no significant stenosis or occlusion identified in the intracranial arteries. Reading Location: [facility]
--- NOTE | 2024-12-23 08:03 | CT_ITS ---
EXAM: NONCONTRAST CT SCAN OF THE HEAD CLINICAL HISTORY: Acute stroke COMPARISON: May 25, 2020 TECHNIQUE: Serial axial series through the head were obtained without contrast. 2-D coronal and sagittal reformats were then obtained. FINDINGS: Brain: There is a subdural hematoma on the right measuring 0.5 cm in depth in the temporal region. There is hemorrhage extending along the falx and tentorium on the right with a masslike component posteriorly measuring 5.0 by 2.0 cm, axial image 31/48. There is low-density in the deep white matter on the right and left, and in the right occipital and posterior temporal cortex, which may have an acute infarct component. There is midline shift at the anterior aspect, 0.4 cm towards the left. The basal cisterns appear intact. Paranasal sinuses: Well-aerated Mastoid air cells: Well-aerated. Calvarium: The bony calvarium is intact. Orbits: The bilateral globes are symmetric, without retrobulbar compressive mass lesion or hemorrhage. CT/STROKE Brain/Head without Cont IMPRESSION: There is a subdural hematoma on the right measuring 0.5 cm in depth in the temp oral region. There is hemorrhage extending along the falx and tentorium on the right with a masslike component posteriorly measuring 5.0 by 2.0 cm, axial image 31/48. There is low-density in the deep white matter on the right and left, and in the right occipital and posterior temporal cortex, which may have an acute infarct component. There is midline shift at the anterior aspect, 0.4 cm towards the left. Critical results were discussed with Dr. Yu by Dr. Nichole at the time o f dictation. Reading Location: [facility]
--- NOTE | 2024-12-23 08:03 | EKG12_ITS ---
Test Reason : FALL/STROKE TEAM Blood Pressure : */* mmHG Vent. Rate : 87 BPM Atrial Rate : * BPM P-R Int : * ms QRS Dur : 98 ms QT Int : 382 ms P-R-T Axes : * -16 24 degrees QTcB Int : 459 ms Atrial fibrillation Nonspecific ST abnormality Abnormal ECG Confirmed by WILLY YANEZ, KISHA ([id number]), editorial intern ANGELITA JONES ([id number]) on 12/24/2024 1:36:36 PM Referred By: Confirmed By: KISHA AGUILERA MD
[2024-12-23 08:15] LABS: Absolute Lymphocyte Count 0.93 X10^3/uL (0.83-4.51); Basophil# 0.02 X10^3/uL; Basophil% 0.3 % (0-1); Eosinophil# 0.14 X10^3/uL; Eosinophils% 2.4 % (0-5); Hematocrit 40.9 % (40-54); Hemoglobin 13.6 g/dL (13.0-16.5); Lymphocyte # 0.93 X10^3/ul (0.83-4.51); Lymphocyte % 15.9 % (19-41); Mean Corp Hgb Conc 33.3 g/dL (32-36); Mean Corpuscular Hgb 30.8 pg (27.0-32.0); Mean Corpuscular Volume 92.5 fL (80-94); Mean Platelet Vol. 11.5 fl (6.2-12.0); Monocyte# 0.75 X10^3/uL; Monocyte% 12.8 % (0-10); NRBC Flagged by Analyzer 0 % (0-5); Neutrophil # 3.98 X10^3/uL (2.7-7.7); Neutrophil % 68.3 % (47-70); Platelet Count 186 K/mm3 (150-450); RBC Distribution Width CV 13.8 % (11.6-14.6); RBC Distribution Width SD 47.2 fl (35.1-43.9); Red Blood Count 4.42 M/mm3 (4.6-6.2); White Blood Count 5.8 K/mm3 (4.4-11.0)
--- NOTE | 2024-12-23 08:21 | PCA ---
CALLED [facility] @ [id number] FOR TRANSPORT
[2024-12-23] MEDS: Labetalol 20 MG/4 ML Vial IV (08:25)
[2024-12-23] MEDS: levETIRAcetam IV 1,000 MG/100 ML BAG 400 MG IV (08:32)
[2024-12-23 08:38] LABS: Partial Thromboplast Time 36.2 Seconds (24.1-36.2)
[2024-12-23] MEDS: VIAFLEX IV (08:52)
[2024-12-23] MEDS: HUM PROTHROMBIN CPLX LANS IV (08:52)
[2024-12-23] MEDS: Nicardipine HCl-0.9% Sod Chlor 20 MG/200 ML IV.SOLN 50 MG CONT INF (08:54)
[2024-12-23 09:03] LABS: International Normalized Ratio 2.9; Prothrombin Time (Protime)PT. 31.1 SECONDS (11.7-14.9)
[2024-12-23 09:50] LABS: Anion Gap 10 (5-15); BUN 14 mg/dL (4-19); Calcium,Total 8.8 mg/dL (7.6-11.0); Carbon Dioxide 22.5 mmol/L (21.0-32.0); Chloride 106 mmol/L (98-108); Creatinine, Serum 0.92 mg/dL (0.70-1.20); EST Glomerular Filtration Rate 83 (>60); Estimated Creatinine Clearance 73.99 ml/min (50-250); Glucose 103 mg/dL (70-99); Potassium 4.3 mmol/L (3.3-5.1); Sodium Level 138 mmol/L (133-145)
[2024-12-23 09:51] LABS: Bedside Glucose 94 mg/dL (74-106)
[2024-12-23 09:58] LABS: Troponin T High Sensitivity 15 ng/L (<=22)
== END 2024-12-23 09:27 | disposition short-term general hospital (02) ==
PROVIDERS: Emergency Provider Emergency Medicine; PCP Family Medicine; Visit Provider Emergency Medicine
DX: S06.5X0A Traumatic subdural hemorrhage without loss of consciousness, initial encounter (principal); I48.0 Paroxysmal atrial fibrillation; I63.89 Other cerebral infarction; I10 Essential (primary) hypertension; Z79.01 Long term (current) use of anticoagulants; Z87.891 Personal history of nicotine dependence; R20.0 Anesthesia of skin; R20.2 Paresthesia of skin; Z79.899 Other long term (current) drug therapy; W19.XXXA Unspecified fall, initial encounter; R29.702 NIHSS score 2
CPT/HCPCS: 51702; 70450; 70496; 70498; 80048; 82962; 84484; 85025; 85610; 85730; 93005; 99285; Q9967; A4216; J7165

== ENCOUNTER 2024-12-30 18:14 | Inpatient (IN) | payer MEDICARE, BC, SELFPAY ==
[2024-12-30 18:40] VITALS: BP 149/91; PULSE 73; RESP 16; TEMP 36.6; O2SAT 94; BMI 25.3
[2024-12-30] MEDS: Senna/Docusate Sodium 1 Tablet 2 TABLET PO (19:52)
[2024-12-30 22:58] VITALS: BP 140/90; PULSE 73; RESP 16; TEMP 36.8; O2SAT 96
[2024-12-31] VITALS (7 sets, daily range): BP systolic 123–158; BP diastolic 76–91; PULSE 78–101; RESP 15–18; TEMP 36.7–36.8; O2SAT 94–98
[2024-12-31] MEDS: Metoprolol(XL)Succ 50 MG Tablet PO (10:00)
[2024-12-31] MEDS: Senna/Docusate Sodium 1 Tablet 2 TABLET PO ×2 (10:01→21:04)
[2024-12-31] MEDS: Magnesium Chloride 64 MG Delay Rel.Tablet 128 MG PO (10:01)
--- NOTE | 2024-12-31 12:18 | HP.PCM_ITS ---
[facility] Date of Admission: 12/30/24 Date of Service: 12/31/24 Chief Complaint: Debility due to SDH HPI Narrative ERIN YAÑEZ, is a 84 YO M with a PMH of AF, chronic anticoagulation with Xarelto, BPH, degenerative disc disease, diverticulosis, tobacco dependence in remission, CHRISTOPHER, hiatal hernia, hypertension, and history of melanoma who presented to the ED at [facility] on 12/23/2024 complaining of tingling and weakness on his left side. He related that he had a fall (he struck his head and had a scalp abrasion) on 12/20/2024 and was doing fine until he woke up at 2 AM on the with tingling and numbness on the L side.......it increased in the time it took him to get to the ED by squad. Noncontrast brain CT showed a subdural hematoma on the right measuring 0.5 cm in depth in the temporal region. There was hemorrhage extending along the falx and tentorium on the right with a masslike component posteriorly measuring 5 cm x 2 cm. There was a midline shift at the anterior aspect of 0.4 cm towards the left. CTA of the head and neck showed an ascending aorta which was dilated to 4.1 cm. There was no significant stenosis or occlusion identified in the carotid or vertebral system. NIHSS was 2 for weakness in the left upper extremity and left lower extremity. He was given Kcentra in the emergency department. He also received labetalol for hypertension and Keppra for seizure prophylaxis. He was transferred to [facility] for intracerebral bleed. Neurosurgery was consulted. a 20 minute EEG was negative for seizure activity. Continuous EEG also showed no seizure activity. It did show right cerebral hemisphere dysfunction. CT head was repeated at [facility] And showed a slight increase in size of extensive acute right parafalcine subdural hemorrhage measuring up to 19 mm in thickness. There was a slight increase in the subdural hemorrhage along the right cerebral convexity measuring 6 mm, up from 4 mm at [facility]. There was mass effect on the right cerebral convexity with approximately 4 mm of midline shift to the left. This was unchanged. CT brain was repeated on 12/24/2024 and showed a slight decreased size of the parasagittal component of the right subdural hemorrhage with minimal midline shift. There was a stable appearing small left cerebral subdural hemorrhage and right cerebellar subdural hemorrhage. MRI of the brain on December 26 showed no definite acute CVA. There was increased FLAIR signal in the medial right frontal and parietal cortex adjacent to the parafalcine subdural and subarachnoid hemorrhage suspicious for cortical edema. There was a stable appearance of multiple extra-axial hemorrhages along the medial right greater than left falx, overlying the right convexity as well as in the posterior fossa and along the tentorium. He did not require any surgical intervention while at [facility]. He was transferred to the acute inpt rehab unit at [facility] on 12/30/24 for 3 hours of therapy daily to restore function/independence at or near his level prior to the fall on 12/20/24. Afebrile Blood pressure has ranged from 140/92 158/86 since arrival on rehab. Heart rate is within normal limits. Maintaining appropriate oxygen saturation on room air. He has been incontinent of urine and stool. [facility] Medical History (Updated 12/31/24 @ 17:[address] Savanna Kelly DO) PAD (peripheral artery disease) Tobacco dependence in remission Chronic anticoagulation MCC current use of amiodarone Peripheral neuropathy History of melanoma Ambulates with cane History of edema History of echocardiogram History of stress test History of atrial fibrillation Arthritis Prostate disease History of hiatal hernia Former smoker CPAP (continuous positive airway pressure) dependence Sleep apnea Cardiology follow-up encounter Urinary tract infection with hematuria Urinary frequency Bilateral lower extremity edema Phlebitis of superficial vein of right lower extremity Lumbar and sacral osteoarthritis Lumbar disc displacement without myelopathy Lumbar degenerative disc disease Chronic prostatitis Acute cystitis with hematuria Essential (primary) hypertension Back pain Paroxysmal atrial fibrillation BPH (benign prostatic hyperplasia) Home Medications ?Medication ?Instructions ?Recorded ?Last Taken ?Type lisinopril 20 mg tablet 20 mg PO DAILY blood pressur e #90 06/20/24 12/30/24 Rx tabs acetaminophen 500 mg tablet 1,000 mg PO Q8 pain Unknown History cyclobenzaprine 5 mg tablet 5 mg PO TID PRN muscle spa sm 12/30/24 Unknown History magnesium glycinate 100 mg (as 200 mg PO DAILY supplem ent 12/30/24 12/30/24 History glycinate) tablet (Mag Glycinate) metoprolol succinate 50 mg 50 mg PO DAILY heart rate 0 12/30/24 12/30/24 History tablet,extended release 24 hr oxycodone 5 mg tablet 5 mg PO Q4H PRN pain 1-10 12/30/24 History Allergy/AdvReac Type Severity Reaction Status Date / Time No Known Allergies Allergy Verified 12/23/24 07:16 Family History Mother Myocardial infarction Father Colon cancer Sister Myocardial infarction Surgical History (Updated 12/31/24 @ 16:[address] Savanna Kelly DO) H/O Mohs micrographic surgery for skin cancer History of cardiac catheterization History of transurethral resection of prostate History of eye surgery History of lumbar discectomy History of prostatectomy History of left heart catheterization (2011) Social History household members: spouse Smoking Status: Former smoker how long ago did patient quit smokin03/02/1987 alcohol intake: current alcohol intake frequency: a few times a week substance use type: does not use caffeine: No ROS Constitutional Constitutional: Reports poor appetite and snoring; Denies anorexia, change in weight, chills, fatigue, fever(s), headache(s), night sweats or weakness Eyes Eyes: Denies blurry vision, change in vision, eye pain or loss of vision ENT HEENT: Denies abnormal hearing, dysphagia, headache(s), hearing loss, nasal congestion or sore throat Cardiovascular Cardiovascular: Denies chest pain, dyspnea on exertion, edema, lightheadedness, orthopnea, palpitations, paroxysmal nocturnal dyspnea or syncope Respiratory/Chest Respiratory/Chest: Denies cough, dyspnea, shortness of breath at rest, shortness of breath with exertion or wheezing Gastrointestinal Gastrointestinal: Reports constipation; Denies abdominal pain, diarrhea, dyspepsia, hematemesis, hematochezia, nausea or vomiting Genitourinary Genitourinary: Reports urinary incontinence and urinary urgency; Denies dysuria, hematuria, nocturia, urinary frequency or urinary hesitancy Musculoskeletal Musculoskeletal: Reports back pain, difficulty walking and muscle weakness; Denies joint pain, joint swelling or neck pain Integumentary Integumentary: Denies jaundice, pruritus or rash Neurologic Neurologic: Reports disequilibrium, focal weakness and paresthesias; Denies confusion, dizziness, headache(s), seizures or tremor(s) Psychiatric Psychiatric: Reports change in appetite, cognitive impairment, depression and difficulty concentrating; Denies anxiety, homicidal ideation, suicidal ideation or visual hallucinations Endocrine Endocrinology: Denies change in body appearance, polydipsia or polyuria Hematologic/Lymphatic Hematologic/Lymphatic: Reports easy bleeding and easy bruising; Denies lymphadenopathy Allergic/Immunologic Allergic/Immunologic: Denies rhinitis, eczemia or asthma Vital Signs Vital Signs Vital Signs: 12/30/24 18:40 12/30/24 19:04 12/30/24 19:16 Temperature 97.8 F Temperature Source Temporal Pulse Rate 73 Pulse Strength Normal (2+) Respiratory Rate 16 Respiratory Effort Normal Non-Labored Respiratory Depth Normal Respiratory Pattern Normal Blood Pressure 149/91 H Blood Pressure Mean 110 Blood Pressure Source Monitor Blood Pressure Position Semi-Fowlers Blood Pressure Location Right Arm Pulse Ox 94 Oxygen Delivery Method Room Air Room Air 12/30/24 22:58 12/31/24 06:00 12/31/24 08:35 Temperature 98.2 F 98.0 F Temperature Source Temporal Oral Pulse Rate 73 85 Pulse Strength Respiratory Rate 16 16 Respiratory Effort Respiratory Depth Respiratory Pattern Blood Pressure 140/90 H 158/86 H Blood Pressure Mean 106 110 Blood Pressure Source Monitor Monitor Blood Pressure Position Semi-Fowlers Semi-Fowlers Blood Pressure Location Right Arm Right Arm Pulse Ox 96 94 94 Oxygen Delivery Method Room Air Room Air Room Air 12/31/24 10:00 12/31/24 10:00 12/31/24 10:00 Temperature Temperature Source Pulse Rate 88 88 Pulse Strength Normal (2+) Respiratory Rate Respiratory Effort Respiratory Depth Respiratory Pattern Blood Pressure 148/88 H 148/88 H Blood Pressure Mean 108 Blood Pressure Source Monitor Blood Pressure Position Semi-Fowlers Blood Pressure Location Right Arm Pulse Ox Oxygen Delivery Method 12/31/24 10:00 Temperature Temperature Source Pulse Rate Pulse Strength Respiratory Rate Respiratory Effort Normal Non-Labored Respiratory Depth Normal Respiratory Pattern Normal Blood Pressure Blood Pressure Mean Blood Pressure Source Blood Pressure Position Blood Pressure Location Pulse Ox Oxygen Delivery Method Room Air Weight Weight: 202 lb 8 oz Body Mass Index (BMI) 25.3 Indicators for Scoring Admitted with or Primary Diagnosis of CVA/Stroke: No (multiple SDH's and SAH with foacl neurologic deficits. ) Hx of CVA/Stroke: No Modified Adele Score MRS Score at time of Evaluation: 4-Moderate/severe disability NIHSS NIHSS 1a. Level of Consciousness: 1 - Not alert; Arousable by minor stimuli to obey, answer & respond (It was the end of the day and he may just be tired. ) 1b. LOC Questions: 0 - Answers BOTH questions correctly 1c. LOC Commands: 0 - Performs BOTH tasks correctly 2. Best Gaze: 0 - Normal 3. Visual: 0 - No visual loss 4. Facial Palsy: 0 - Normal symmetrical movements 5a. Left Arm: 2 - Some effort against gravity; (able to lift the forearm off the bed and grasp with the left hand. Can not lift the elbow off the bed. ) 5b. Right Arm: 0 - No drift; arm holds 90 (or 45) degrees for full 10 seconds ([id number]) 6b. Right Le - Some effort against gravity; 7. Limb Ataxia: 0 - Absent (unable to adequately test secondary to weakness. ) 8. Sensory: 1 - [id number] sensory loss; (Left face and left UE. He has some numbness in the R neck following excision of a cyst that is chronic. ) 9. Best Language: 0 - No aphasia; normal 10. Dysarthria: 1 = [id number] dysarthria; (soft voice does not project well ) 11. Extinction and Inattention: 0 - No abnormality Total: 7 Stroke Questions Stroke Team Activated: No Physical Exam Const Constitutional Narrative: Very sleepy........I had some difficulty keeping him awake for the exam but, it was done at the end of the day and he may just be fatigued. General Appearance: cooperative, ill appearing and other appears stated age HEENT HEENT Narrative: Very dry mucous membranes no evidence of thrush Kiana on the hard palate Eyes PERRL, EOMs intact bilaterally, conjunctivae normal and no scleral icterus Eyes Narrative: No discharge from the eyes. No visual field cuts. Denies any change in his vision. General Eye: normal light reflex Neck supple, No nodes and no carotid bruits General: trachea midline Chest Chest: symmetrical chest wall rise Resp normal respiratory effort Resp Narrative: diminished BS's........decreased effort. No conversational dyspnea. Not tachypneic. No wheezing or crackles anteriorly. I did not have help to set him up in the bed to listen posteriorly. Will re-examine in the AM when I have someone to help with positioning. Effort and Inspection: decreased respiratory effort; Negative for labored, grunting or actively coughing Cardio no murmurs, no rub and no gallops Cardio Narrative: Irregular irregular rhythm with controlled ventricular response. Known history of atrial fibrillation. Denies chest pain and also denies palpitations and lightheadedness. GI normal to inspection, nondistended, normoactive bowel sounds, soft to palpation and non-tender GI Narrative: No guarding with palpation. Narrative: Apparently had a pure wick catheter at the previous hospital. UA done today is positive for protein and ketones. It is positive for leukocyte esterase. WBC and RBC and bacteria still pending. Back/Spine no CVA tenderness Extremity no pedal edema Extremity Narrative: Superficial varicosities in both lower extremities. No ankle edema. No calf pain. Skin General Skin Exam: Negative for jaundice Rashes: no rashes Hair: general thinning Neuro Neuro Narrative: He is somewhat drowsy but may just be fatigued because it is the end of the day. He arouses easily. Hard time keeping him awake at times. He is oriented x 3. Pupils are equal round reactive to light and accommodation. Extraocular muscles are intact. No vertigo. Smooth pursuit. Tongue protrudes on the midline. The palate elevates symmetrically. Poor shoulder shrug on the left. He is able to lift his left forearm off the bed but cannot lift the elbow off the bed. He has a fair hand grasp on the left. He is right-hand dominant. The right upper extremity has no drift. 5/5 strength in the right upper extremity. He is able to lift the right leg off the bed but it falls to the bed prior to 5 seconds elapsing. He has some plantarflexion and dorsiflexion in the right foot. He had no movement in the left lower extremity. Unable to check for ataxia secondary to severe weakness in the left upper extremity and left lower extremity. He has decreased sensation in the left upper extremity and the left face. He also has some decrease sensation in the right neck which is secondary to a prior surgical procedure to remove a cyst. No extinction. No visual field cuts. Psych Psych Narrative: Depressed affect and admits to feeling depressed. Not currently on an antidepressant. Feeling somewhat helpless and hopeless. Denies hallucinations. No suicidal ideation. Appearance: grossly normal and appropriate Activity / Motor Behavior: psychomotor slowing and other Keeps his eyes closed most of the time I am talking with him unless I ask him to look at me. Speech: slow and soft Mood & Affect: depressed Assessment & Plan Assessment/Plan (1) Debility: (2) Intracerebral bleed due to trauma: QUALIFIERS: Encounter type: subsequent encounter Laterality: unspecified laterality Loss of consciousness presence/duration: without LOC Qualified Code(s): S06.360D - Traumatic hemorrhage of cerebrum, unspecified, without loss of consciousness, subsequent encounter PLAN: Multiple SDH's and SAH. No surgical intervention required. Left hemiparesis due to large R parafalcine SDH. MRI negative for stroke X 2 (12/23 and 12/25/24) (3) Mild cognitive impairment: PLAN: BCAT . (4) Acute left-sided weakness: PLAN: LLE>LUE. some L side neglect. (5) Paresthesias: PLAN: Chronic paresthesias in the BL LE's more likely than not related to chronic back pain/hx of discectomy and DDD/DJD LS spine. New paresthesias of the left upper extremity and left face due to subdural hematoma. (6) Depression: QUALIFIERS: Depression Type: reactive depression Qualified Code(s): F32.9 - Major depressive disorder, single episode, unspecified (7) Urinary incontinence: QUALIFIERS: Urinary Incontinence type: urinary incontinence without sensory awareness Qualified Code(s): N39.42 - Incontinence without sensory awareness (8) Sleep apnea: QUALIFIERS: Sleep apnea type: obstructive Qualified Code(s): G47.33 - Obstructive sleep apnea (adult) (pediatric) PLAN: Has been prescribed CPAP in the past but is noncompliant. Does not wear oxygen at night. (9) Essential (primary) hypertension: (10) Paroxysmal atrial fibrillation: (11) Chronic anticoagulation: PLAN: Chronic anticoagulation for paroxysmal atrial fibrillation on Xarelto. Anticoagulation is on hold due to intracerebral bleed. (12) Venous insufficiency (chronic) (peripheral): (13) Peripheral neuropathy: QUALIFIERS: Peripheral neuropathy type: polyneuropathy, other Qualified Code(s): G62.89 - Other specified polyneuropathies (14) PAD (peripheral artery disease): PLAN: Left greater than right lower extremity. (15) History of melanoma: PLAN: Plan PLAN PT for gait stability OT for ADL's ST for evaluation Analgesics as needed Bowel protocol Fall precautions Assess for Anxiety/Depression -he admits to feeling depressed. Feeling somewhat hopeless. Agreeable to starting an antidepressant. Poor appetite. Will start Remeron tonight. GI prophylaxis -not necessary at this time. He denies nausea/vom iting/epigastric pain/heartburn. Denies history of peptic ulcer disease. DVT prophylaxis with SCDs and VANESSA lund. Follow up with PCP, neurology, cardiology following DC from [facility] Rehab AM lab including CMP, CBC, Mag and Phos - ordered. Will need to talk with neurology or neurosurgery to Discuss when safe to start DVT prophylaxis. Check the stool for occult blood Check an overnight trending pulse ox Avoid sedating medications as much as possible Blood pressure is mildly elevated now. Hydralazine has been added as needed for blood pressure greater than 170 systolic or 85 diastolic. Goal for BP is less than 140/80. Charges/Coding Visit Charges Inpatient E&M: 57223 Init Hosp L3
[2024-12-31 15:33] LABS: Mucous, Urine 0 SEEN /hpf (<or=2+)
[2024-12-31 15:37] LABS: Color, Urine Yellow (Yellow); Glucose, Dipstick 100 mg/dl (Normal); Ketone-Dipstick 15 mg/dl (Negative); Leukocyte Esterase-Dipstick 500 /ul (Negative); Nitrite-Dipstick Negative (Negative); Occult Blood-Urine 50 /ul (Negative); Protein-Dipstick 30 mg/dl (Negative); Specific Gravity, Urine 1.020 (1.002-1.030); Urine Bilirubin Dipstick Negative (Negative)
[2024-12-31] MEDS: Ensure Plus High Protein 120 ML LIQUID PO ×2 (17:31→21:05)
[2024-12-31 17:40] LABS: Squamous Epithelial Cells - UA 0-5 SEEN /hpf (0-5)
[2024-12-31 17:41] LABS: Red Blood Cells-Urine 0-5 SEEN /hpf (0-5)
--- NOTE | 2024-12-31 17:53 | REHABEVAL_ITS ---
Admission Information Primary Diagnosis:: Debility secondary to intracerebral hemorrhage Status Changes from Prescreening?: No changes Identified Actual Problem List:: UTI, Skin Intergrity, Cognitve Impr/Memory Loss, Depression, Bladder Incontinence, Alteration in Nutrition, Mobility Impaired, Self Care Deficit, BP, Hypertension, Fluid Change-Dehydration and Alteration- Leisure Activ. Potential Problem List:: DVT, Bleeding, Infection, UTI, Aspiration, Falls, Skin Integrity and Depression Risk of Complications DVT: VANESSA Hose and Sequential Compression Device Bleeding: Monitor Lab Values, Nursing to Teach Precautions for anti-coagulation therapy., Wound, if applicable, to be assessed every shift. and Stroke patients assessed for lethargy or change in status. Infection: Clinical Staff to Monitor for S/S of infection: and S/S of infection include fever, redness, warmth, etc. Urinary Tract Infection: Monitor for frequency, burning, discomfort, or inc ontinence. and Nursing will obtain urine sample for urinalysis and C&S when ordered. Aspiration: Clinical staff will monitor for coughing, drooling, congestion., Speech will evaluate swallowing and dsyphasia. and Nursing will monitor patient swallowing during meals. Falls: Patient will be evaluated for Fall Precautions and Patient will be placed on Fall Precautions as indicated per protocol. Skin Breakdown: Nursing will assess skin daily using assessment tool. and Nursing will place on Skin Breakdown Precautions as indicated. Pain: Clinical staff will assess patient's pain level per protocol., Medications will be given, if needed, and the pain level reassessed. and Other methods: Massage, distraction, decrease stimulus, etc. used PRN. Plan of Care Patient requires physician specializing in physical medicine and rehab oversight to provide close medical supervision of rehab issues including: Pain Management, Sleep Problems, Bowel and Bladder, Medical and co-morbidity Management, DVT prophylaxis, Rehabilitation Leadership and Coordination of treatment team Patient needs Physical Therapy: For a minimum of 1 hour and At least 5 out of 7 days Patient needs Physical Therapy to improve:: Mobility, Strengthening, Transfers, Stretching, ROM, Endurance, Stairs, Gait and Balance Patient needs Occupational Therapy: For a minimum of 1 hour and At least 5 out of 7 days Patient needs Occupational Therapy to improve ADL's incl.: Eating, Grooming, Bathing, Dressing, Toileting, Toilet transfers, Community Reintegration, Higher functioning activities, Household tasks, Adaptive Equipment, Splinting and Other activities as determined Patient requires speech therapy: For a minimum of 1 hour and At least 5 out of 7 days Patient requires speech therapy for: Swallowing, Cognition, Language Skills and Compensatory Strategies Patient requires 24 Rehabilitation Nursing for: Pain Issues, Identifying and preventing risk factors, Monitoring and reporting current medical conditions, Assisting with ambulation, transfer, and all ADL's, Teaching patients about disease process and medications, Family teaching, Providing safe environment, Bowel and Bladder Issues, Skin integrity and Medication Management Patient needs Lease Picker/ Case Management for: Discharge Planning, Arranging Home Equipment or Services and Family Interventions Patient needs Dietary and Nutrition Services for: Adequate Nutrition, Nutritional Supplements and Nutritional Education Goals Goals Patient will remain: free from falls Patient will perform eating at: MOD I level of assist. Patient will perform bed mobility at: MOD I level of assist. Patient will complete transfers from bed to chair at: - (Contact-guard assist) Patient will ambulate: - (20 feet with least restrictive device at contact-guard assist on various surfaces) Patient will complete upper body dressing at: - (Set up) Patient will complete lower body dressing at: - (Min assist with adaptive equipment as needed) Patient will complete toilet transfer at: - (Min assist) Patient will complete toileting at: - (Minimal assistance) Patient will perform bathing at: - (Upper body bathing at min assist and lower body bathing at min assist with adaptive equipment as needed) Patient will perform Tub/Shower transfer at: - (Min assist using DME as needed) Patient will complete grooming at: - (Supervision while seated at the sink) Patient will achieve: - (1 curb step with least restrictive device at min assist) Patient will have pain level of: of 3 or less Patient's skin will: remain intact Patient will receive: adequate nutrition. Discharge Planning Pt Prognosis for Sig. Practical Improv. w/in Reasonable Time: Good Estimated Length of stay (days): 28 Anticipated D/C Destination: TBD Was Preadmission Assessment Accurate?: Yes
[2025-01-01] VITALS (8 sets, daily range): BP systolic 116–150; BP diastolic 65–91; PULSE 83–100; RESP 16–17; TEMP 36.5–37.1; O2SAT 94–97
[2025-01-01 07:25] LABS: Hematocrit 44.5 % (40-54); Hemoglobin 14.9 g/dL (13.0-16.5); Immature Granulocytes Count 0.020 X10^3/uL (0.0-0.0); Mean Corp Hgb Conc 33.5 g/dL (32-36); Mean Corpuscular Volume 91.0 fL (80-94); Mean Platelet Vol. 11.4 fl (6.2-12.0); NRBC Flagged by Analyzer 0 % (0-5); Platelet Count 250 K/mm3 (150-450); RBC Distribution Width CV 13.7 % (11.6-14.6); RBC Distribution Width SD 45.2 fl (35.1-43.9); Red Blood Count 4.89 M/mm3 (4.6-6.2); White Blood Count 6.6 K/mm3 (4.4-11.0)
[2025-01-01 08:00] LABS: AST(SGOT) 26 U/L (<=37); Alanine Aminotransfer ALT/SGPT 29 U/L (<=46); Albumin, Serum 3.3 g/dL (3.4-4.8); Alkaline Phosphatase 132 U/L (40-129); Anion Gap 13 (5-15); BUN 17 mg/dL (4-19); BUN/Creat Ratio 23.8 RATIO (10-20); Calcium,Total 9.2 mg/dL (7.6-11.0); Carbon Dioxide 18.3 mmol/L (21.0-32.0); Chloride 100 mmol/L (98-108); Estimated Creatinine Clearance 85.09 ml/min (50-250); Globulin 3.1 g/dL (2.2-4.2); Glucose 111 mg/dL (70-99); Magnesium 2.0 mg/dL (1.5-2.2); Potassium 4.2 mmol/L (3.3-5.1)
[2025-01-01] MEDS: Ensure Plus High Protein 120 ML LIQUID PO ×4 (09:57→21:01)
[2025-01-01] MEDS: Magnesium Chloride 64 MG Delay Rel.Tablet 128 MG PO (09:58)
[2025-01-01] MEDS: Metoprolol(XL)Succ 50 MG Tablet PO (09:58)
[2025-01-01] MEDS: Senna/Docusate Sodium 1 Tablet 2 TABLET PO ×2 (09:58→21:01)
--- NOTE | 2025-01-01 12:03 | PN_ITS ---
Subjective Subjective Day #2 Macrobid for acute cystitis....... more likely than not related to pure wick catheter used at the previous institution. Afebrile Blood pressure this morning is 116/65 with a heart rate of 93. Has not required any as needed hydralazine. Maintaining appropriate oxygen saturation on room air. I reviewed the overnight trending pulse ox and he had no desaturations. Oral fluid intake yesterday was +1440. Output is not accurate secondary to urinary incontinence. Appetite is poor. Weight is stable. Postvoid residuals x 3 are all less than 150. All lab drawn this morning was personally reviewed. White blood cell count is 6.6 and the hemoglobin today is 14.9. Platelets are within normal limits. Sodium is low at 131 today and the potassium is 4.2. Bicarb is mildly decreased at 18.3. BUN is 17 with a creatinine of 0.72 and a BUN/creatinine ratio of 23.8. GFR is 91. Calcium, phosphorus and magnesium are all within normal limits. LFTs are unremarkable. Tells me he slept pretty well last night. Denies chest pain, shortness of breath, palpitations, nausea/vomiting/abdominal pain, dysuria and calf tenderness. Denies headache and lightheadedness. I spoke to his on the phone. She tells me that he has been falling asleep a lot during the day over the past couple months. He often walks without a device but, uses a cane when he is in religion [facility]. Appetite has been good at home. Has not been losing wt. She thinks he has been depressed. Has not used CPAP in >20 years. Has had some falls. Objective Data Objective Data Vital Signs: Vital Signs Temp Pulse Resp BP Pulse Ox O2 Del Method FiO2 98.8 F 93 17 116/65 94 Room Air 21 01/01/25 04:43 01/01/25 10:00 01/01/25 04:43 01/01/25 10:01/01/25 06:54 01/01/25 10:12/31/24 22:01 Oxygen Delivery Method Room Air Weight: 202 lb 7.984 oz Body Mass Index (BMI) 25.3 Intake & Output: Intake and Output for Last 24 Hours 07/07/25 07/08/25 07/09/25 23:59 23:59 23:59 Intake Total 200 / 200 1440 / 1440 220 / 220 Output Total 200 / 200 200 / 200 Balance 200 / 200 1240 / 1240 20 / 20 Lab / Micro Data 01/01/25 06:58 01/01/25 06:58 Labs: Laboratory Results - last 24 hr 12/31/24 15:00: Urine Color Yellow, Urine Clarity Turbid, Urine pH 6.0, Ur Specific [place] 1.020, Urine Protein 30 H, Urine Glucose (UA) 100 H, Urine Ketones 15 H, Urine Occult Blood 50 H, Urine Nitrite Negative, Urine Bilirubin Negative, Urine Urobilinogen 4 H, Ur Leukocyte Esterase 500 H, Urine RBC 0-5 SEEN, Urine WBC >100 SEEN, Ur Squamous Epith Cells 0-5 SEEN, Urine Bacteria 2+, Urine Mucus 0 SEEN 01/01/25 06:58: WBC 6.6, RBC 4.89, Hgb 14.9, Hct 44.5, MCV 91.0, MCH 30.5, MCHC 33.5, RDW Std Deviation 45.2 H, RDW Coeff of Chastity 13.7, Plt Count 250, MPV 11.4, Immature Gran % (Auto) 0.300, Neut % (Auto) 63.8, Lymph % (Auto) 22.0, [place] % (Auto) 9.5, Eos % (Auto) 3.8, Baso % (Auto) 0.6, Absolute Neuts (auto) 4.2, Absolute Lymphs (auto) 1.46, Nucleated RBC % 0, Sodium 131 L, Potassium 4.2, Chloride 100, Carbon Dioxide 18.3 L, Anion Gap 13, BUN 17, Creatinine 0.72, Estim Creat Clear Calc 85.09, Est GFR (MDRD) Non-Af 91, BUN/Creatinine Ratio 23.8 H, Glucose 111 H, Calcium 9.2, Phosphorus 3.2, Magnesium 2.0, Total Bilirubin 0.94, AST 26, ALT 29, Alkaline Phosphatase 132 H, Total Protein 6.3, A lbumin 3.3 L, Globulin 3.1, Albumin/Globulin Ratio 1.1 Micro: Microbiology 01/01/25 06:58 Stool Stool Occult Blood (AMOS) - Final Occult Blood Positive Physical Exam Const Constitutional Narrative: He is awake but, not what I would describe as alert. Tends to keep his eyes closed. Seems very fatigued. Falls asleep very easily.........I have to keep arousing him. HEENT Mouth: dry mucous membranes Resp Resp Narrative: Diminished respiratory effort but, better than yesterday. Not coughing. Not tachypneic. I was able to listen to the posterior lungs today and he is CTA. Cardio Cardio Narrative: Irregular irregular rhythm with controlled ventricular response on metoprolol. No gallop, no murmur. GI normal to inspection, nondistended, normoactive bowel sounds and soft to palpation GI Narrative: No guarding with palpation Extremity no calf tenderness General Extremity: Negative for edema Skin Rashes: no rashes Psych Psych Narrative: Very flat affect. Talks to people with eyes closed. Wanting to sleep most of the day. Poor appetite. Wants to get better but, feeling kind of hopeless. Not a lot of effort put forth with therapy. NO agitation. Assessment & Plan Assessment/Plan (1) Debility: (2) Intracerebral bleed due to trauma: QUALIFIERS: Encounter type: subsequent encounter Laterality: u nspecified laterality Loss of consciousness presence/duration: without LOC Q ualified Code(s): S06.360D - Traumatic hemorrhage of cerebrum, unspecified, without loss of consciousness, subsequent encounter (3) Mild cognitive impairment: (4) Acute left-sided weakness: (5) Paresthesias: (6) Depression: QUALIFIERS: Depression Type: reactive depression Qualified Code(s): F32.9 - Major depressive disorder, single episode, unspecified PLAN: Severe. Sx predated the intracerebral bleed. (7) Urinary incontinence: QUALIFIERS: Urinary Incontinence type: urinary incontinence without sensory awareness Qualified Code(s): N39.42 - Incontinence without sensory awareness (8) Sleep apnea: QUALIFIERS: Sleep apnea type: obstructive Qualified Code(s): G 47.33 - Obstructive sleep apnea (adult) (pediatric) PLAN: Overnight trending pulse ox unremarkable. (9) Essential (primary) hypertension: (10) Paroxysmal atrial fibrillation: (11) Chronic anticoagulation: PLAN: On Hold for intracerebral bleed. 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 cerebral salt wasting? Dehydration? PLAN: Plan 1. Continue therapy 2. Continue Remeron 15 mg nightly 3. Consider a sleep study even though the overnight trending pulse ox showed no significant desaturation because of the daytime somnolence. . 4. BP mildly elevated, not requiring PRN Hydralazine. Continue to monitor. 5. Order a urine sodium and serum and urine osmolalities. I suspect the etiology of the daytime somnolence is depression and that this predated the intracerebral bleed. It is going to take 2 to 4 weeks for any significant improvement in depression with Remeron. Will consider adding Provigil to his current drug regimen to see if we can keep him more awake for therapy during the day. Charges/Coding Visit Charges Inpatient E&M: 77571 Subs Hosp L2
[2025-01-02] VITALS (8 sets, daily range): BP systolic 104–163; BP diastolic 66–88; PULSE 76–113; RESP 15–18; TEMP 36.7–37; O2SAT 96–98
--- NOTE | 2025-01-02 07:13 | PN_ITS ---
Subjective Subjective Ton was seen on team rounds today. His Latoya was present in the room. All their questions were answered to their satisfaction. Macrobid day #3 Afebrile VSS -blood pressure over the past 24 hours has ranged from 116/65 to 150/84. Blood pressure this morning is 146/88. Heart rate is ranged from 83-100. Maintaining appropriate oxygen saturation on RA Oral intake - FOOD poor FLUIDS fair Discussed with nursing - refused to get out of bed today. States he is too tired. He is incontinent of urine and stool and does not even know that he has gone and depends need changed. Reviewed the THERAPY notes Medication list reviewed. Urine culture is still pending. Kept his eyes closed almost the entire time he was getting OT today. He was more alert with me and kept his eyes open at least 50% of the time we talked. He has left side neglect and will not look at me at all if I am standing on his left side. He sometimes will make eye contact with me if I am standing at the bedside on the R but, more often than not he is not making eye contact. Denies SOB, cough, CP, lightheadedness. He admits to having pain in his toes and he is c/o pain in the mid back.........he has known DDD/DJD and has had spinaL surgery in the past. He is primarily sedentary and this is likely exacerbating the pain. While working with PT today he got nauseated, had a small emesis and became pale and diaphoretic. BP lying and then sitting upright in bed with his legs on the bed the BP and the HR did not change significantly but, he did tell me when he got nauseated he felt very lightheaded. Objective Data Objective Data Vital Signs: Vital Signs Temp Pulse Resp BP Pulse Ox O2 Del Method FiO2 98.0 F 100 15 146/88 H 95 Room Air 21 01/02/25 06:00 01/02/25 06:00 01/02/25 06:00 01/02/25 06:00 01/01/25 22:00 01/01/25 22:00 12/31/24 22:01 Oxygen Delivery Method Room Air Weight: 202 lb 7.984 oz Body Mass Index (BMI) 25.3 Intake & Output: Intake and Output for Last 24 Hours 12/31/24 01/01/2525 23:59 23:59 23:59 Intake Total 1440 / 1440 1170 / 1170 300 / 300 Output Total 200 / 200 350 / 350 Balance 1240 / 1240 820 / 820 300 / 300 Lab / Micro Data 01/01/25 06:58 01/01/25 06:58 Labs: Laboratory Results - last 24 hr 01/01/25 06:58: WBC 6.6, RBC 4.89, Hgb 14.9, Hct 44.5, MCV 91.0, MCH 30.5, MCHC 33.5, RDW Std Deviation 45.2 H, RDW Coeff of Chasti[place] 13.7, Plt Count 250, MPV 11.4, Immature Gran % (Auto) 0.300, Neut % (Auto) 63.8, Lymph % (Auto) 22.0, [place] % (Auto) 9.5, Eos % (Auto) 3.8, Baso % (Auto) 0.6, Absolute Neuts (auto) 4.2, Absolute Lymphs (auto) 1.46, Nucleated RBC % 0, Sodium 131 L, Potassium 4.2, Chloride 100, Carbon Dioxide 18.3 L, Anion Gap 13, BUN 17, Creatinine 0.72, Estim Creat Clear Calc 85.09, Est GFR (MDRD) Non-Af 91, BUN/Creatinine Ratio 23.8 H, Glucose 111 H, Calcium 9.2, Phosphorus 3.2, Magnesium 2.0, Total Bilirubin 0.94, AST 26, ALT 29, Alkaline Phosphatase 132 H, Total Protein 6.3, A lbumin 3.3 L, Globulin 3.1, Albumin/Globulin Ratio 1.1 Micro: Microbiology 01/01/25 06:58 Stool Stool Occult Blood (AMOS) - Final Occult Blood Positive Physical Exam Const Constitutional Narrative: drowsy but, more alert with me today than he has been in the past 2 days. I did not have to keep arousing him today. HEENT HEENT Narrative: Has some ptosis of the Left upper eyelid. MM are dry. Resp Resp Narrative: Not coughing. Not tachypneic. I was able to listen to the posterior lungs today and he is CTA. Diminished throughout but, lory in the bases. Better effort today. Cardio Cardio Narrative: Irregular irregular rhythm with controlled ventricular response on metoprolol. No gallop, no murmur. GI normal to inspection, nondistended, normoactive bowel sounds and soft to palpation GI Narrative: No guarding with palpation. Incontinent of stool......has no sensation that he has even moved his bowels. Extremity no calf tenderness General Extremity: Negative for edema Skin Rashes: no rashes Psych Psych Narrative: Very flat affect. Talks to people with eyes closed. Wanting to sleep most of the day. Poor appetite. Wants to get better but, feeling kind of hopeless. Not a lot of effort put forth with therapy. NO agitation. Assessment & Plan Assessment/Plan (1) Debility: (2) Intracerebral bleed due to trauma: QUALIFIERS: Encounter type: subsequent encounter Laterality: u nspecified laterality Loss of consciousness presence/duration: without LOC Q ualified Code(s): S06.360D - Traumatic hemorrhage of cerebrum, unspecified, without loss of consciousness, subsequent encounter (3) Mild cognitive impairment: (4) Acute left-sided weakness: (5) Paresthesias: (6) Depression: QUALIFIERS: Depression Type: reactive depression Qualified Code(s): F32.9 - Major depressive disorder, single episode, unspecified (7) Urinary incontinence: QUALIFIERS: Urinary Incontinence type: urinary incontinence without sensory awareness Qualified Code(s): N39.42 - Incontinence without sensory awareness (8) Sleep apnea: QUALIFIERS: Sleep apnea type: obstructive Qualified Code(s): G 47.33 - Obstructive sleep apnea (adult) (pediatric) (9) Essential (primary) hypertension: (10) Paroxysmal atrial fibrillation: (11) Chronic anticoagulation: (12) Venous insufficiency (chronic) (peripheral): (13) Peripheral neuropathy: QUALIFIERS: Peripheral neuropathy type: polyneuropathy, other Q ualified Code(s): G62.89 - Other specified polyneuropathies (14) PAD (peripheral artery disease): (15) History of melanoma: (16) Heme positive stool: (17) Hyponatremia: (18) Near syncope: (19) Dehydration: PLAN: Plan 1. Continue therapy 2. Start Provigil 100 mg daily in the a.m. - he received a dose of this today. 3. Give the Remeron at 8 PM rather than 10PM 4. Check a urine sodium, urine osmolality and serum osmolality. 5. Try compounded neuropathy cream on his feet. Was using an OTC nerve pill at home. I really do not want to add any potentially sedating meds to the current drug regimen. 6. He uses nervive on his feet at home for neuropathy and I OKayed use of this while on rehab. Would like to avoid any sedating meds at least for now because he has been so sleepy and difficult to keep awake. 7. IV fluids have been ordered with a 1 liter bolus over 1 hour. He had a stress test approximately 1 year ago that showed preserved ejection fraction with no ischemia. Charges/Coding Visit Charges Inpatient E&M: 48815 Subs Hosp L2
[2025-01-02] MEDS: Ensure Plus High Protein 120 ML LIQUID PO (08:48)
[2025-01-02] MEDS: Magnesium Chloride 64 MG Delay Rel.Tablet 128 MG PO (08:48)
[2025-01-02] MEDS: Metoprolol(XL)Succ 50 MG Tablet PO (08:50)
[2025-01-02] MEDS: Neuropathy Pain Cream Compound 60 CLICK TUBE TOPICAL ×2 (09:11→20:50)
[2025-01-02 10:31] LABS: Osmolality, Serum 286 mOsm/KG (280-301)
[2025-01-02] MEDS: 0.9% Normal Saline (1000mL) 1,000 ML 75 ML IV (11:03)
[2025-01-02] MEDS: 0.9% Normal Saline (1000mL) 1,000 ML 500 ML IV (12:17)
--- NOTE | 2025-01-02 13:24 | CASEMGMT ---
Addendum entered by Yaz Riggs 01/06/25 16:16: SW sent another message to [facility] at at 1330 to inquire about outcome. Addendum entered by Yaz Riggs 01/03/25 12:01: [facility] is reviewing. [facility] can accept. Original Note: Social Work IDT met with patient and for Team meeting. Discussed patient's progress in PT/OT/ST/SN/MD. Educated to Medicare approval of 18 days with DC 01/17. Pt is a gertrude lift/[id number] lift. Pt is severely depressed and keeps eye closed for the majority of interactions. Dr is assisting with medication and medical management for improvement. SW did not directly state pt will likely need a SNF at DC, being sensitive to pt's current hopelessness, but explained to this worker will assist with DC planning and meet pt where he's at and ensure he gets his care needs met. SW provided with this worker's contact information to follow up. Will ReTeam weekly. - spoke with this worker 1:1 after Team meeting and asked if pt would need a SNF. SW confirmed, that it is unlikely pt will make enough improvements to safely return home with at time of DC. SW explained Medicare will cover skilled stay and SW to provide list of options when it is needed. stated her only two choices are [facility] and [facility]. SW offered to make referrals and can cancel if no longer needed. agreed. - JULIUS sent referrals to [facility] and and [facility] via [facility]. Yaz Riggs MSW PRECONSTRUCTION MANAGER
[2025-01-02] MEDS: Ensure Clear 120 ML Liquid PO (17:28)
[2025-01-02 17:46] LABS: Osmolality, Urine 437 mOsm/KG
[2025-01-02] MEDS: Senna/Docusate Sodium 1 Tablet 2 TABLET PO (20:49)
[2025-01-03] MEDS: 0.9% Normal Saline (1000mL) 1,000 ML 75 ML IV (01:13)
[2025-01-03 05:37] LABS: Hematocrit 43.0 % (40-54); Hemoglobin 14.5 g/dL (13.0-16.5); Immature Granulocytes Count 0.030 X10^3/uL (0.0-0.0); Mean Corp Hgb Conc 33.7 g/dL (32-36); Mean Corpuscular Volume 92.1 fL (80-94); Mean Platelet Vol. 11.0 fl (6.2-12.0); NRBC Flagged by Analyzer 0 % (0-5); Platelet Count 232 K/mm3 (150-450); RBC Distribution Width CV 14.0 % (11.6-14.6); RBC Distribution Width SD 47.1 fl (35.1-43.9); Red Blood Count 4.67 M/mm3 (4.6-6.2); White Blood Count 8.2 K/mm3 (4.4-11.0)
[2025-01-03 06:00] VITALS: BP 133/75; PULSE 74; RESP 17; TEMP 37.1; O2SAT 94; BMI 26.0
[2025-01-03 06:23] LABS: Anion Gap 7 (5-15); BUN 13 mg/dL (4-19); BUN/Creat Ratio 17.3 RATIO (10-20); Calcium,Total 8.7 mg/dL (7.6-11.0); Carbon Dioxide 21.3 mmol/L (21.0-32.0); Chloride 101 mmol/L (98-108); Estimated Creatinine Clearance 85.09 ml/min (50-250); Glucose 111 mg/dL (70-99); Potassium 4.6 mmol/L (3.3-5.1)
[2025-01-03 11:14] VITALS: PULSE 100
[2025-01-03] MEDS: Senna/Docusate Sodium 1 Tablet 2 TABLET PO ×2 (11:14→20:46)
[2025-01-03] MEDS: Ensure Clear 120 ML Liquid PO ×2 (11:14→16:50)
[2025-01-03] MEDS: Neuropathy Pain Cream Compound 60 CLICK TUBE TOPICAL ×2 (11:14→20:46)
[2025-01-03] MEDS: Metoprolol(XL)Succ 50 MG Tablet PO (11:14)
[2025-01-03] MEDS: Magnesium Chloride 64 MG Delay Rel.Tablet 128 MG PO (11:14)
[2025-01-03 11:23] VITALS: BP 128/73; PULSE 100; RESP 17; TEMP 36.8; O2SAT 98
--- NOTE | 2025-01-03 12:05 | PN_ITS ---
Subjective Subjective Afebrile VSS -blood pressure has improved with hydration and is currently 128/73 with a heart rate of 100. Maintaining appropriate oxygen saturation on RA-94 to 98%. Oral intake - FOOD erratic FLUIDS fair Discussed with nursing - no problems that need addressed Reviewed the THERAPY notes Medication list reviewed. White blood cell count is normal today. Hemoglobin is normal at 14.5. Platelets are within normal limits. Sodium is low at 130 and the potassium is 4.6. BUN is down to 13 after IV fluids yesterday. Fattening is 0.75 and stable. Serum osmolality is normal at 286. Urine sodium is less than maximally dilute at 437 and the urine sodium was 51. This is consistent with SIADH. Ton denies lightheadedness, cephalgia, chest pain, palpitations, shortness of breath, cough, sore throat, dysuria, nausea, abdominal pain. Objective Data Objective Data Vital Signs: Vital Signs Temp Pulse Resp BP Pulse Ox O2 Del Method O2 Flow Rate 98.3 F 100 17 128/73 H 98 Room Air 2 01/03/25 11:23 01/03/25 11:23 01/03/25 11:23 01/03/25 11:23 01/03/25 11:23 01/03/25 11:28 01/03/25 08:59 FiO2 21 12/31/24 22:01 Oxygen Flow Rate (L/min) 2 Oxygen Delivery Method Room Air Weight: 208 lb 5.389 oz Body Mass Index (BMI) 26.0 Intake & Output: Intake and Output for Last 24 Hours 01/01/25 01/02/25 01/03/25 23:59 23:59 23:59 Intake Total 1170 / 1170 1780 / 1780 1060 / 1060 Output Total 350 / 350 Balance 820 / 820 1780 / 1780 1060 / 1060 Lab / Micro Data 01/06/25 12:13 01/06/25 12:13 Labs: Laboratory Results - last 24 hr 01/02/25 14:35: Urine Osmolality 437, Ur Random Sodium 51 01/03/25 05:26: WBC 8.2, RBC 4.67, Hgb 14.5, Hct 43.0, MCV 92.1, MCH 31.0, MCHC 33.7, RDW Std Deviation 47.1 H, RDW Coeff of Chastity 14.0, Plt Count 232, MPV 11.0, Immature Gran % (Auto) 0.400, Neut % (Auto) 74.1 H, Lymph % (Auto) 7.7 L, [place] % (Auto) 11.4 H, Eos % (Auto) 5.8 H, Baso % (Auto) 0.6, Absolute Neuts (auto) 6.0, Absolute Lymphs (auto) 0.63 L, Nucleated RBC % 0, Sodium 130 L, Potassium 4.6, Chloride 101, Carbon Dioxide 21.3, Anion Gap 7, BUN 13, Creatinine 0.75, Estim Creat Clear Calc 85.09, Est GFR (MDRD) Non-Af 90, BUN/Creatinine Ratio 17.3, G lucose 111 H, Calcium 8.7 Micro: Microbiology 12/31/24 15:00 Urine Catheter - Catheter Urine Culture - Final Enterococcus faecalis 01/01/25 06:58 Stool Stool Occult Blood (AMOS) - Final Occult Blood Positive Physical Exam Const Constitutional Narrative: More alert today than he was the end of last week. COnfused. No agitated. Resp Resp Narrative: Not coughing. Not tachypneic. Respirations are not labored. Normal inspiratory effort. Diminished in both bases, left greater than right. No wheezing. Few coarse crackles in the left midlung. Cardio Cardio Narrative: Irregular irregular rhythm with controlled ventricular response on metoprolol. No gallop, no murmur. GI normal to inspection, nondistended, normoactive bowel sounds and soft to palpation GI Narrative: No guarding with palpation. Incontinent of stool......has no sensation that he has even moved his bowels. Also continent of urine. Had a large bowel movement today. Extremity no calf tenderness General Extremity: Negative for edema Skin Rashes: no rashes Assessment & Plan Assessment/Plan (1) Debility: (2) Intracerebral bleed due to trauma: QUALIFIERS: Encounter type: subsequent encounter Laterality: u nspecified laterality Loss of consciousness presence/duration: without LOC Q ualified Code(s): S06.360D - Traumatic hemorrhage of cerebrum, unspecified, without loss of consciousness, subsequent encounter (3) Mild cognitive impairment: (4) Acute left-sided weakness: (5) Paresthesias: (6) Depression: QUALIFIERS: Depression Type: reactive depression Qualified Code(s): F32.9 - Major depressive disorder, single episode, unspecified (7) Urinary incontinence: QUALIFIERS: Urinary Incontinence type: urinary incontinence without sensory awareness Qualified Code(s): N39.42 - Incontinence without sensory awareness (8) Essential (primary) hypertension: (9) Paroxysmal atrial fibrillation: (10) Chronic anticoagulation: (11) Peripheral neuropathy: QUALIFIERS: Peripheral neuropathy type: polyneuropathy, other Q ualified Code(s): G62.89 - Other specified polyneuropathies (12) PAD (peripheral artery disease): (13) Heme positive stool: (14) Hyponatremia: PLAN: Lab consistent with SIADH PLAN: Plan 1. Continue therapy 2. Stop the IV fluids 3. Start salt tabs. Hold off on diuretic for now. Fluid restrict to 1200 cc/day. 4. Restart Provigil 100 mg p.o. every morning 5. Recheck BMP Monday 6. Continue Remeron. Charges/Coding Visit Charges Inpatient E&M: 86600 Subs Hosp L1
[2025-01-03 18:00] VITALS: BP 133/71; PULSE 79; RESP 18; TEMP 37.2; O2SAT 97
[2025-01-03 22:00] VITALS: O2SAT 97
[2025-01-04] VITALS (9 sets, daily range): BP systolic 109–149; BP diastolic 65–84; PULSE 100–110; RESP 14–19; TEMP 36.6–37.5; O2SAT 16–97
[2025-01-04 07:51] LABS: Anion Gap 10 (5-15); BUN 15 mg/dL (4-19); BUN/Creat Ratio 19.7 RATIO (10-20); Calcium,Total 9.2 mg/dL (7.6-11.0); Carbon Dioxide 20.3 mmol/L (21.0-32.0); Chloride 98 mmol/L (98-108); Estimated Creatinine Clearance 85.09 ml/min (50-250); Glucose 118 mg/dL (70-99); Potassium 4.4 mmol/L (3.3-5.1)
[2025-01-04] MEDS: Magnesium Chloride 64 MG Delay Rel.Tablet 128 MG PO (08:19)
[2025-01-04] MEDS: Neuropathy Pain Cream Compound 60 CLICK TUBE TOPICAL ×2 (08:19→21:56)
[2025-01-04] MEDS: Senna/Docusate Sodium 1 Tablet 2 TABLET PO ×2 (08:19→21:56)
[2025-01-04] MEDS: Metoprolol(XL)Succ 50 MG Tablet PO (08:20)
[2025-01-04] MEDS: Ensure Clear 120 ML Liquid PO ×2 (08:21→17:42)
--- NOTE | 2025-01-04 09:20 | RAD_ITS ---
PROCEDURE: CHEST 1 VIEW (PORTABLE) 01/04/2025 REASON FOR EXAM: FEVER/POSSIBLE ASPIRATION. TECHNIQUE: Frontal view of the chest. COMPARISON: Chest radiograph 07/24/2021. FINDINGS: Hardware: None. Heart: The heart size is normal. Calcification of the thoracic aorta. Lungs: Low lung volumes. Probable left lower lung zone opacity and/or trace pleural effusion. No right pleural effusion. No pneumothorax. Bones: Degenerative changes are identified within the thoracic spine. Chronic right rib fracture deformities. RAD/Chest 1 View (Portable) IMPRESSION: Probable left lower lung zone opacity and/or trace pleural effusion. Reading Location: [id number]
[2025-01-04] MEDS: levoFLOXacin IV 750 MG/150 ML BAG 100 MG IV (11:13)
[2025-01-04] MEDS: Metoprolol(XL)Succ 25 MG Tablet PO (21:56)
[2025-01-05 06:00] VITALS: BP 115/62; PULSE 93; RESP 16; TEMP 36.8; O2SAT 92
[2025-01-05] MEDS: Neuropathy Pain Cream Compound 60 CLICK TUBE TOPICAL ×2 (08:46→21:17)
[2025-01-05] MEDS: Senna/Docusate Sodium 1 Tablet 2 TABLET PO ×2 (08:46→21:18)
[2025-01-05] MEDS: Magnesium Chloride 64 MG Delay Rel.Tablet 128 MG PO (08:46)
[2025-01-05 08:49] VITALS: BP 128/80; PULSE 95
[2025-01-05] MEDS: Ensure Clear 120 ML Liquid PO (08:49)
[2025-01-05] MEDS: Metoprolol(XL)Succ 50 MG Tablet PO (08:49)
[2025-01-05 10:00] VITALS: O2SAT 93
[2025-01-05] MEDS: levoFLOXacin IV 500 MG/100 ML BAG 100 MG IV (10:38)
[2025-01-05 18:00] VITALS: BP 110/58; PULSE 96; RESP 16; TEMP 37.1; O2SAT 92
[2025-01-05 21:00] VITALS: BP 122/72; PULSE 94; RESP 16; TEMP 36.7; O2SAT 96
[2025-01-05 21:16] VITALS: BP 122/72; PULSE 94
[2025-01-05] MEDS: Metoprolol(XL)Succ 25 MG Tablet PO (21:16)
[2025-01-06] VITALS (7 sets, daily range): BP systolic 127–136; BP diastolic 74–90; PULSE 87–100; RESP 15–17; TEMP 36.7–37; O2SAT 92–96
--- NOTE | 2025-01-06 02:36 | NURSING ---
Pt. medicated at 2117 with 5mg OxyIR for a pain of 8/10 for a headache on the top of his head. Pt. revered to pain as irritating and intermittent.
[2025-01-06] MEDS: Metoprolol(XL)Succ 50 MG Tablet PO (08:17)
[2025-01-06] MEDS: Magnesium Chloride 64 MG Delay Rel.Tablet 128 MG PO (08:17)
[2025-01-06] MEDS: Neuropathy Pain Cream Compound 60 CLICK TUBE TOPICAL ×2 (08:19→20:10)
--- NOTE | 2025-01-06 11:40 | PN_ITS ---
Subjective Subjective Afebrile VSS -blood pressure over the past 48 hours has ranged from 115/62 to 138/75. Heart rate has ranged from 93-104. Maintaining appropriate oxygen saturation on RA-94% on room air today Oral intake - FOOD he refused breakfast and lunch yesterday and had nausea and an emesis. He was started on Protonix and he ate 75 to 100% of supper last night and breakfast this morning. 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 Discussed with nursing - no problems that need addressed Reviewed the THERAPY notes Medication list reviewed. More alert today. Confused. Wants his to bring his walker so he can leave this place. Seeing ants on the floor. suspect this is due to Levaquin. Denies pain, nausea, vomiting, abd pain, cough and SOB. No lightheadedness and no cephalgia. Objective Data Objective Data Vital Signs: Vital Signs Temp Pulse Resp BP Pulse Ox O2 Del Method O2 Flow Rate 98.6 F 100 17 127/74 H 94 Room Air 2 01/06/25 06:00 01/06/25 08:17 01/06/25 06:00 01/06/25 06:00 01/06/25 09:43 01/06/25 09:43 01/06/25 06:00 FiO2 94 01/05/25 22:00 Oxygen Flow Rate (L/min) 2 Oxygen Delivery Method Room Air Weight: 208 lb 5.389 oz Body Mass Index (BMI) 26.0 Intake & Output: Intake and Output for Last 24 Hours 01/04/25 01/05/25 01/06/25 23:59 23:59 23:59 Intake Total 945 / 945 1440 / 1440 175 / 175 Balance 945 / 945 1440 / 1440 175 / 175 Lab / Micro Data 01/06/25 12:13 01/06/25 12:13 Micro: Microbiology 12/31/24 15:00 Urine Catheter - Catheter Urine Culture - Final Enterococcus faecalis 01/01/25 06:58 Stool Stool Occult Blood (AMOS) - Final Occult Blood Positive Physical Exam Const Constitutional Narrative: More alert today than he was the end of last week. COnfused. No agitated. HEENT HEENT Narrative: Has some ptosis of the Left upper eyelid. MM are dry. Neck supple Resp Resp Narrative: Not coughing. Not tachypneic. Respirations are not labored. Normal inspiratory effort. Diminished in both bases, left greater than right. No wheezing. Few coarse crackles in the left midlung. Cardio Cardio Narrative: Irregular irregular rhythm with controlled ventricular response on metoprolol. No gallop, no murmur. GI normal to inspection, nondistended, normoactive bowel sounds and soft to palpation GI Narrative: No guarding with palpation. Incontinent of stool......has no sensation that he has even moved his bowels. Also continent of urine. Had a large bowel movement today. Extremity no calf tenderness General Extremity: Negative for edema Skin Rashes: no rashes Psych Psych Narrative: His eyes are open today when he is talking with me and he made eye contact with me today. I am not having to constantly arouse him to get him to talk to me. Assessment & Plan Assessment/Plan (1) Debility: (2) Intracerebral bleed due to trauma: QUALIFIERS: Encounter type: subsequent encounter Laterality: u nspecified laterality Loss of consciousness presence/duration: without LOC Q ualified Code(s): S06.360D - Traumatic hemorrhage of cerebrum, unspecified, without loss of consciousness, subsequent encounter (3) Mild cognitive impairment: (4) Acute left-sided weakness: (5) Paresthesias: (6) Depression: QUALIFIERS: Depression Type: reactive depression Qualified Code(s): F32.9 - Major depressive disorder, single episode, unspecified (7) Urinary incontinence: QUALIFIERS: Urinary Incontinence type: urinary incontinence without sensory awareness Qualified Code(s): N39.42 - Incontinence without sensory awareness (8) Essential (primary) hypertension: (9) Paroxysmal atrial fibrillation: (10) Chronic anticoagulation: (11) Peripheral neuropathy: QUALIFIERS: Peripheral neuropathy type: polyneuropathy, other Q ualified Code(s): G62.89 - Other specified polyneuropathies (12) PAD (peripheral artery disease): (13) Heme positive stool: (14) Hyponatremia: PLAN: Lab consistent with SIADH (15) Hospital-acquired pneumonia: PLAN: Left base (16) Acute delirium: PLAN: Suspect secondary to Levaquin. PLAN: Plan 1. Continue therapy 2. Discontinue Levaquin due to hallucinations/confusion. Start Augmentin 875 mg BID. Hallucinations could also be due to hyponatremia.......the order I put in for salt tabs on Monday never got started until this morning. 3. STAT BMP - sodium was 129 Monday. Sodium chloride tablets 1 g p.o. twice daily was ordered at 06/05 on 01/03/2025 and patient never received an dose until this morning? Checking with pharmacy to see why this happened. He has SIADH. Charges/Coding Visit Charges Inpatient E&M: 22784 Subs Hosp L2
[2025-01-06 12:39] LABS: Hematocrit 42.7 % (40-54); Hemoglobin 15.1 g/dL (13.0-16.5); Immature Granulocytes Count 0.060 X10^3/uL (0.0-0.0); Mean Corp Hgb Conc 35.4 g/dL (32-36); Mean Corpuscular Volume 88.8 fL (80-94); Mean Platelet Vol. 11.5 fl (6.2-12.0); NRBC Flagged by Analyzer 0 % (0-5); Platelet Count 240 K/mm3 (150-450); RBC Distribution Width CV 13.9 % (11.6-14.6); RBC Distribution Width SD 45.1 fl (35.1-43.9); Red Blood Count 4.81 M/mm3 (4.6-6.2); White Blood Count 8.3 K/mm3 (4.4-11.0)
[2025-01-06 13:17] LABS: Anion Gap 11 (5-15); BUN 28 mg/dL (4-19); BUN/Creat Ratio 31.4 RATIO (10-20); Calcium,Total 9.1 mg/dL (7.6-11.0); Carbon Dioxide 20.5 mmol/L (21.0-32.0); Chloride 98 mmol/L (98-108); Estimated Creatinine Clearance 75.63 ml/min (50-250); Glucose 115 mg/dL (70-99); Potassium 4.4 mmol/L (3.3-5.1)
[2025-01-06] MEDS: Metoprolol(XL)Succ 25 MG Tablet PO (20:18)
[2025-01-06] MEDS: 0.9% Saline Lock 10 ML Syringe IV (22:59)
[2025-01-07] VITALS (7 sets, daily range): BP systolic 120–127; BP diastolic 74–79; PULSE 89–95; RESP 16; TEMP 36.4–37.1; O2SAT 94–98
--- NOTE | 2025-01-07 03:24 | NURSING ---
SpO2 level @ 03:00 was 94% with 2L O2.
[2025-01-07] MEDS: Neuropathy Pain Cream Compound 60 CLICK TUBE TOPICAL ×2 (08:40→21:17)
[2025-01-07] MEDS: Magnesium Chloride 64 MG Delay Rel.Tablet 128 MG PO (08:41)
[2025-01-07] MEDS: Metoprolol(XL)Succ 50 MG Tablet PO (08:41)
--- NOTE | 2025-01-07 10:04 | CASEMGMT ---
Social Work SW received call from . expressed frustration with pt's decline, reaction to meds and having UTI. also stating pt has not received his therapy because of his change in condition, and inquired about how to ask Medicare for additional days on RU. SW validated pt's frustrations as pt has changed condition, but Dr is treating. SW attempted to assure that pt still receives the 3 hrs/day of therapy, and no notification was given to this worker that pt was unable to receive therapy. refuted and stated she was visiting yesterday and pt did not get his full therapy. SW offered to follow up with therapy to ensure there was not inaccurate, but this worker spoke with therapy and Dr yesterday as well, and pt had received his full therapy minutes. However, SW attempted to redirect conversation with to educate on Medicare appeal rights - allows 2 days prior to DC to file an appeal, which would be 01/15. expressed she and pt do not want SNF at DC, only home. reverted back to pt's change in condition. continued to interrupt this worker with responses. SW allowed to express her thoughts. agreed to continue with pt's care and wait for updates at Team meeting. SW agreed. Yaz Riggs [employer]STRU[employer]
--- NOTE | 2025-01-07 12:10 | PN_ITS ---
Subjective Subjective Afebrile VSS -blood pressure over the past 24 hours has ranged from 123/ 74-1 36/90 at suppertime yesterday. The heart rate is ranged from 87-100. Maintaining appropriate oxygen saturation on RA Oral intake - FOOD very erratic..... Often poor. Did not refuse any meals yesterday. FLUIDS only 565 cc orally were recorded yesterday. Discussed with nursing - no problems that need addressed. Incontinent of urine and stool. Reviewed the THERAPY notes Medication list reviewed. Taking 1-2 oxycodone 5 mg tablets daily for complaint of back/buttocks pain. No longer complaining about pain in his feet. Tells me that he is not eating because he is not hungry and he does not like the food. He wants his to bring in [employer] bars for him to it. He denies nausea/vomiting/abdominal pain....... he just does not like the food and he does not feel hungry. He denies lightheadedness, chest pain, shortness of breath, cough, palpitations, dysuria and calf pain. He complains his butt hurts. Not able to do 3 hours of therapy daily. He is more alert now than at admission. We were not able to keep him awake at admission to even talk.......kept nodding off. He is sleeping well at night now. Has had 5 doses of Remeron. UTI and PNA have been treated. Objective Data Objective Data Vital Signs: Vital Signs Temp Pulse Resp BP Pulse Ox O2 Del Method O2 Flow Rate 97.6 F L 95 16 123/74 H 94 Room Air 2 01/07/25 05:53 01/07/25 08:41 01/07/25 05:53 01/07/25 05:53 01/07/25 05:53 01/07/25 10:00 01/07/25 08:02 FiO2 94 01/05/25 22:00 Oxygen Flow Rate (L/min) 2 Oxygen Delivery Method Room Air Weight: 208 lb 5.389 oz Body Mass Index (BMI) 26.0 Intake & Output: Intake and Output for Last 24 Hours 01/05/25 01/06/25 01/07/25 23:59 23:59 23:59 Intake Total 1440 / 1440 565 / 565 Balance 1440 / 1440 565 / 565 Lab / Micro Data 01/06/25 12:13 01/06/25 12:13 Labs: Laboratory Results - last 24 hr 01/06/25 12:13: WBC 8.3, RBC 4.81, Hgb 15.1, Hct 42.7, MCV 88.8, MCH 31.4, MCHC 35.4 D, RDW Std Deviation 45.1 H, RDW Coeff of Chastity 13.9, Plt Count 240, MPV 11.5, Immature Gran % (Auto) 0.700, Neut % (Auto) 65.8, Lymph % (Auto) 10.0 L, M joshua % (Auto) 14.2 H, Eos % (Auto) 8.7 H, Baso % (Auto) 0.6, Absolute Neuts (auto) 5.4, Absolute Lymphs (auto) 0.83, Nucleated RBC % 0, Sodium 130 L, Potassium 4.4, Chloride 98, Carbon Dioxide 20.5 L, Anion Gap 11, BUN 28 H, Creatinine 0.90, Estim Creat Clear Calc 75.63, Est GFR (MDRD) Non-Af 85, B UN/Creatinine Ratio 31.4 H, Glucose 115 H, Calcium 9.1, TSH 1.520 Micro: Microbiology 12/31/24 15:00 Urine Catheter - Catheter Urine Culture - Final Enterococcus faecalis 01/01/25 06:58 Stool Stool Occult Blood (AMOS) - Final Occult Blood Positive Physical Exam Const alert Constitutional Narrative: Was able to converse with me today. Therapists tell me that he is not hallucinating today and has been appropriate with them. Wants to get better but, motivation to do the4 things necessary to get better is lacking. HEENT Mouth: dry mucous membranes Resp Resp Narrative: Lying nearly flat in the recliner with no SOB. Not tachypneic. Breathing is not labored. Able to take deep breaths when asked to do so. Not coughing with deep breathing. Lungs are CTA anterior and lateral. Cardio no rub and no gallops Cardio Narrative: Rhythm is regular today. Denies chest pain. No ectopy. Previously has been in atrial fibrillation every time I have listened to him. GI normal to inspection, nondistended, normoactive bowel sounds, soft to palpation and non-tender GI Narrative: The abdomen is soft and he has no guarding with palpation. Denies nausea. No epigastric pain with palpation. He received milk of magnesia on Monday and a Dulcolax suppository yesterday a.m. and yesterday had 3 bowel movements later in the day. He has had 1 bowel movement today. He refused stool softeners yesterday a.m. Stool softeners were held last night due to loose stool and the patient refused stool softeners this morning. Extremity no calf tenderness General Extremity: Negative for edema Skin Rashes: no rashes Assessment & Plan Assessment/Plan (1) Debility: (2) Intracerebral bleed due to trauma: QUALIFIERS: Encounter type: subsequent encounter Laterality: u nspecified laterality Loss of consciousness presence/duration: without LOC Q ualified Code(s): S06.360D - Traumatic hemorrhage of cerebrum, unspecified, without loss of consciousness, subsequent encounter (3) Mild cognitive impairment: (4) Acute left-sided weakness: (5) Paresthesias: (6) Depression: QUALIFIERS: Depression Type: reactive depression Qualified Code(s): F32.9 - Major depressive disorder, single episode, unspecified (7) Urinary incontinence: QUALIFIERS: Urinary Incontinence type: urinary incontinence without sensory awareness Qualified Code(s): N39.42 - Incontinence without sensory awareness (8) Fecal incontinence: QUALIFIERS: Fecal incontinence type: unspecified Qualified Code(s): R15.9 - Full incontinence of feces (9) Essential (primary) hypertension: (10) Paroxysmal atrial fibrillation: (11) Chronic anticoagulation: (12) Peripheral neuropathy: QUALIFIERS: Peripheral neuropathy type: polyneuropathy, other Q ualified Code(s): G62.89 - Other specified polyneuropathies (13) PAD (peripheral artery disease): (14) Heme positive stool: (15) Hyponatremia: PLAN: 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 On fluid restriction and salt tabs. (16) Acute delirium: PLAN: Secondary to Levaquin. Has resolved with discontinuation of Levaquin. (17) Hospital-acquired pneumonia: PLAN: Left lower lobe. PLAN: Plan 1. Continue therapy 2. I spoke with the dietitian and will add chocolate protein shakes to hold boost nutrition. 3. Continue Remeron at 15 mg Q HS 4. BP is well controlled and the HR is also controlled. 5. Recheck a BMP I spoke with Selene on the phone. She is very frustrated that he is not able to do 3 hours of therapy and that he is not progressing. I pointed out that he is now awake and alert during the day and able to participate in therapy, even though he is not able to do 3 hours. The UTI and PNA have been treated. Hallucination/confusion resolved with discontinuation of Levaquin. He is tolerating Augmentin without adverse side effect. His BP and HR are now controlled. He is no longer nauseated and at least ate something for each meal yesterday. I told me that in my opinion he will not progress to the point where he will be able to go home in the amount of time we have been given for him to be on rehab. He most likely will go to SNF. Charges/Coding Visit Charges Inpatient E&M: 24017 Subs Hosp L1
[2025-01-07] MEDS: Metoprolol(XL)Succ 25 MG Tablet PO (21:19)
[2025-01-07] MEDS: Senna/Docusate Sodium 1 Tablet 2 TABLET PO (21:19)
[2025-01-07] MEDS: 0.9% Saline Lock 10 ML Syringe IV (21:43)
[2025-01-07] MEDS: Petrolatum 33% Tube 1 APPLIC TOPICAL (21:45)
[2025-01-08] VITALS (7 sets, daily range): BP systolic 105–160; BP diastolic 56–72; PULSE 67–95; RESP 14–18; TEMP 36.4–37; O2SAT 94–97
[2025-01-08] MEDS: Petrolatum 33% Tube 1 APPLIC TOPICAL ×2 (05:54→20:03)
[2025-01-08] MEDS: Magnesium Chloride 64 MG Delay Rel.Tablet 128 MG PO (08:29)
[2025-01-08] MEDS: Metoprolol(XL)Succ 50 MG Tablet PO (08:29)
[2025-01-08] MEDS: 0.9% Saline Lock 10 ML Syringe IV ×2 (08:30→20:38)
[2025-01-08] MEDS: Neuropathy Pain Cream Compound 60 CLICK TUBE TOPICAL ×2 (08:30→20:27)
--- NOTE | 2025-01-08 09:47 | PCM.PROGNOTE ---
Subjective Subjective Afebrile Vital signs stable Maintaining appropriate oxygen saturation on room air while awake. Wearing oxygen while sleeping. Was able to tell nursing this AM he had to urinate......has been incontinent with no sensation prior. Intermittent fecal incontinence. He is sleeping well at night. Has been talking more and interacting with staff. Admitted to me today that he thinks he has had depression for a long time. Has issues with family (mentioned his mother) that go way back. He has a full sister and a half sister and the had sister has no knowledge of the older sister.......wonders why his mother never told her. He did not expand on this but, he did tell me that he feels guilty about this. We talked about psychotherapy going forward and he seemed open to this. He is OK with being on an antidepressant. At times he has thought about putting his clothes and things in the car and just leaving. Has never had psychotherapy. Has not been on an antidepressant until he presented to rehab. He tells me that his wall taper is going to come in today and visit and also a good friend who knows more about his family. He is c/o pain in the Left heel and also some pain in the left knee and thigh. 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 I think the pain in the Left knee and thigh is central in origin. He has some flex of the fingers on the left hand now and one of the night nurses saw movement of the left foot after she finished massaging the foot. Denies lightheadedness, chest pain, cough, shortness of breath, palpitations, nausea/vomiting/abdominal pain. Ate 50 to 74% of his breakfast this morning. Remembers I told him yesterday that he has to eat if he is going to be able to maintain the strength he currently has and actually get better. He is trying. Objective Data Objective Data Vital Signs: Vital Signs Temp Pulse Resp BP Pulse Ox O2 Del Method O2 Flow Rate 97.6 F L 90 16 110/72 95 Nasal Cannula 2 01/08/25 06:00 01/08/25 08:29 01/08/25 06:00 01/08/25 06:00 01/08/25 06:00 01/08/25 06:00 01/08/25 06:00 FiO2 94 01/05/25 22:00 Oxygen Flow Rate (L/min) 2 Oxygen Delivery Method Nasal Cannula Weight: 208 lb 5.389 oz Body Mass Index (BMI) 26.0 Intake & Output: Intake and Output for Last 24 Hours 01/06/25 01/07/25 01/08/25 23:59 23:59 23:59 Intake Total 565 / 565 1000 / 1000 80 / 80 Output Total Balance 565 / 565 1000 / 1000 79 / 79 Lab / Micro Data 01/06/25 12:13 01/06/25 12:13 Micro: Microbiology 12/31/24 15:00 Urine Catheter - Catheter Urine Culture - Final Enterococcus faecalis 01/01/25 06:58 Stool Stool Occult Blood (AMOS) - Final Occult Blood Positive Physical Exam Const alert and oriented x3 Constitutional Narrative: When I entered his room he was watching TV and very alert. He was talkative today and is starting to reveal some of the things that have been bothering him for a long time. Much more interactive with staff in the past 24-48H. Resp clear to auscultation bilaterally Cardio Cardio Narrative: Irregular irregular rhythm with controlled ventricular response GI normal to inspection, nondistended, normoactive bowel sounds and soft to palpation GI Narrative: No guarding with palpation Extremity Extremity Narrative: The Left heel is reddened and mushy to palpation. No opening in the skin. Did not c/o pain with palpation........the pain may actually be central in origin. General Extremity: Negative for edema Neuro Neuro Narrative: some movement of the fingers of the left hand today and moved the Left foot today for nursing. Psych Psych Narrative: Still with depressed affect but, he is alert now during the day and he is talking a lot more. Worried that I am going to give up on him. I reassured him we are not giving up on him and that he is making progress......it is just not as fast as he would like it to be. We talked about central neuropathic pain and that new pain in the left side is actually a good sign that we have some nerve viability. He is much more talkative now and he is interacting and opening up with staff. Sleeping well at night. recognizing now that he has to eat if he is going to be able to have the strength to fo therapy and progress. Made an effort at Breakfast today and ate 50-74% of his meal. The senior quality assurance specialist has added 2 chocolate supplements daily with lunch and supper. Appearance: appropriate Attitude: No agitated Activity / Motor Behavior: Negative for restless Thought Content: No suicidality Assessment & Plan Assessment/Plan (1) Debility: (2) Intracerebral bleed due to trauma: QUALIFIERS: Encounter type: subsequent encounter Laterality: unspecified laterality Loss of consciousness presence/duration: without LOC Qualified Code(s): S06.360D - Traumatic hemorrhage of cerebrum, unspecified, without loss of consciousness, subsequent encounter (3) Mild cognitive impairment: (4) Acute left-sided weakness: (5) Paresthesias: (6) Depression: QUALIFIERS: Depression Type: reactive depression Qualified Code(s): F32.9 - Major depressive disorder, single episode, unspecified (7) Urinary incontinence: QUALIFIERS: Urinary Incontinence type: urinary incontinence without sensory awareness Qualified Code(s): N39.42 - Incontinence without sensory awareness PLAN: is now starting to sense when he has to urinate. 01/08. 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 On fluid restriction and salt tabs. 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 Continue therapy 2. Making progress. Continue Remeron 15 mg at HS 3. Add Gabapentin 100 mg BID for suspected central neuropathic pain. 4. Repeat a BMP Monday a.m. Charges/Coding Visit Charges Inpatient E&M: 73704 Subs Hosp L1
[2025-01-08] MEDS: Senna/Docusate Sodium 1 Tablet 2 TABLET PO (20:26)
[2025-01-08] MEDS: Metoprolol(XL)Succ 25 MG Tablet PO (20:29)
--- NOTE | 2025-01-09 03:03 | NURSING ---
SPO2 LEVEL AT 96% WITH O2 @ 2L WHILE SLEEPING AT THIS TIME.
[2025-01-09 03:05] VITALS: RESP 14; O2SAT 95
[2025-01-09 05:51] VITALS: BP 106/64; PULSE 89; RESP 16; TEMP 36.9; O2SAT 94
[2025-01-09] MEDS: Magnesium Chloride 64 MG Delay Rel.Tablet 128 MG PO (08:34)
[2025-01-09] MEDS: Neuropathy Pain Cream Compound 60 CLICK TUBE TOPICAL (08:34)
[2025-01-09 08:35] VITALS: PULSE 99
[2025-01-09] MEDS: Metoprolol(XL)Succ 50 MG Tablet PO (08:35)
[2025-01-09 09:51] VITALS: RESP 16
--- NOTE | 2025-01-09 09:57 | PCM.PROGNOTE ---
Subjective Subjective Ton was seen on team rounds today. His Selene was present in the room. All her questions were answered to her satisfaction. Afebrile VSS - Maintaining appropriate oxygen saturation on RA Oral intake - FOOD he ate 75 to 100% of his lunch and supper yesterday and 50 to 74% of his breakfast yesterday morning and today. FLUIDS fair Weight is up approximately 6 pounds since admission to rehab. I suspect this is due to better hydration and improving appetite. Discussed with nursing - no problems that need addressed. Occasionally continent of urine now. Incontinent of stool yesterday. Reviewed the THERAPY notes - seen by OT for bathing/dressing/grooming this AM. Not much participation on his part. Unable to maintain an upright posture while seated so not safe for a shower chair. Having trouble with motor planning and not able to roll to the left in bed without assist. Medication list reviewed. He tells me that the has no pain in the Left heel today and denies any pain in the left leg proximal to the ankle. He is c/o pain in the R knee. He denies lightheadedness, chest pain, shortness of breath, cough, nausea/vomiting/abdominal pain, dysuria and calf tenderness. He does have some pain in the left neck and due to the weakness on the left side he is head is frequently rotated to the left. He tells me that he uses Icy Hot at home for pain in the knees. would prefer to use Icy Hot rather than the compounded arthritis cream. Objective Data Objective Data Vital Signs: Vital Signs Temp Pulse Resp BP Pulse Ox O2 Del Method O2 Flow Rate 98.4 F 99 16 106/64 94 Room Air 2 01/09/25 05:51 01/09/25 08:35 01/09/25 09:51 01/09/25 05:51 01/09/25 05:51 01/09/25 09:51 01/09/25 06:16 FiO2 94 01/05/25 22:00 Oxygen Flow Rate (L/min) 2 Oxygen Delivery Method Room Air Weight: 208 lb 5.389 oz Body Mass Index (BMI) 26.0 Intake & Output: Intake and Output for Last 24 Hours 01/07/25 01/08/25 01/09/25 23:59 23:59 23:59 Intake Total 1000 / 1000 1120 / 1120 230 / 230 Output Total 51 / 51 Balance 1000 / 1000 1069 / 1069 230 / 230 Lab / Micro Data 01/06/25 12:13 01/06/25 12:13 Micro: Microbiology 12/31/24 15:00 Urine Catheter - Catheter Urine Culture - Final Enterococcus faecalis 01/01/25 06:58 Stool Stool Occult Blood (AMOS) - Final Occult Blood Positive Physical Exam Const alert and oriented x3 Constitutional Narrative: He was in the recliner with his legs elevated in the therapy room. The chair is partially reclined and he is leaning to the left, unable to maintain an upright posture. His head is on the midline with no cervical rotation Left........but, nursing has seen him with his head turned to the Left frequently. He is pleasant and making good eye contact with me. Talkative. Not motivated to do much for himself when working with therapy. He did wash his perineal area when working with OT today. Eating at supervision/set up. Still total assist for bathing, upper body dressing, lower body dressing, toileting, toilet transfer. Still requiring Jaleel to get him into the for therapy. He completed his oral care at set-up today.......requires MOD assist for body positioning. General Appearance: cooperative HEENT Mouth: dry mucous membranes Neck Neck Narrative: Restricted cervical rotation R. Lots of spasm in the Left trapezius muscle. Painful to touch and palpate the Left trapezius muscle from the base of the occiput to the left shoulder. Has both torticollis to the left and laterocollis to the left. some local massage was done and although it was painful it did help somewhat. No redness of the skin. No radiation of pain into the arm. General: trachea midline Resp clear to auscultation bilaterally Cardio Cardio Narrative: Irregular irregular rhythm with controlled ventricular response GI normal to inspection, nondistended, normoactive bowel sounds and soft to palpation GI Narrative: No guarding with palpation Extremity Extremity Narrative: No heel pain today. Also no longer c/o pain in the left leg today.....gabapentin low dose was started yesterday. the R knee has a lot of ruthy enlargement and he has stiffness of the R knee when I try to flex the knee. NO erythema and no openings in the skin. No significant increased warmth to touch.. PT was able to get the R knee into flexion to 90 degrees. He uses Icy Hot at home. Has never had a knee XRAY at [facility]. General Extremity: Negative for edema Skin Skin Narrative: Stage I Left heel. Rashes: no rashes Neuro Neuro Narrative: Cervical torticollis and laterocollis to the left. Suspect this is related to the intracerebral bleed..........now getting some hypertonicity in the neck/shoulder. Psych Psych Narrative: More engaged with me when we talk. Eating better and sleeping well at night now. Appearance: appropriate Attitude: No agitated Activity / Motor Behavior: Negative for restless Mood & Affect: depressed Thought Content: No suicidality Assessment & Plan Assessment/Plan (1) Debility: (2) Intracerebral bleed due to trauma: QUALIFIERS: Encounter type: subsequent encounter Laterality: unspecified laterality Loss of consciousness presence/duration: without LOC Qualified Code(s): S06.360D - Traumatic hemorrhage of cerebrum, unspecified, without loss of consciousness, subsequent encounter (3) Mild cognitive impairment: (4) Acute left-sided weakness: (5) Paresthesias: (6) Depression: QUALIFIERS: Depression Type: reactive depression Qualified Code(s): F32.9 - Major depressive disorder, single episode, unspecified (7) Urinary incontinence: QUALIFIERS: Urinary Incontinence type: urinary incontinence without sensory awareness Qualified Code(s): N39.42 - Incontinence without sensory awareness (8) Fecal incontinence: QUALIFIERS: Fecal incontinence type: unspecified Qualified Code(s): R15.9 - Full incontinence of feces (9) Essential (primary) hypertension: (10) Paroxysmal atrial fibrillation: (11) Chronic anticoagulation: PLAN: On hold due to intracerebral bleed (12) Peripheral neuropathy: QUALIFIERS: Peripheral neuropathy type: polyneuropathy, other Qualified Code(s): G62.89 - Other specified polyneuropathies (13) PAD (peripheral artery disease): (14) Heme positive stool: (15) Hyponatremia: PLAN: 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 On fluid restriction and salt tabs. 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 Continue therapy 2. He has had 7 doses of Remeron and he is tolerating well with no adverse side effects. Sleeping will at night now and appetite is picking up. Consider increasing to 22.5 mg in a few days if he continues to tolerate. 3. Will ask pain management if they can do a Botox injection for the torticollis. He is finally awake during the day and able to participate somewhat in therapy. I do not want to start adding muscle relaxers or Klonopin which would increase sedation. Will try TENS unit.....PT is checking on the availability of the hospital unit. Also try therapeutic massage and ICY Hot. If this is not effective consider a lidocaine patch. Will work on ROM in the neck. 4. Lab has been ordered for the morning. Family has been apparently giving him excess fluids and will need to reinforce with them why natalie is on fluid restriction. I explained this to Ton today. He is c/o a dry mouth. Will prescribe Biotene PRN 5. Selene is going to come in for therapy sessions next week to see if he will participate better with therapy.
--- NOTE | 2025-01-09 13:08 | CASEMGMT ---
Addendum entered by Yaz Riggs 01/16/25 12:52: 7000 completed. DC orders sent to [facility]. Requested pt be seen by psychology. to discuss possible palliative or hospice care. Original Note: Social Work IDT met with patient and for Team meeting. Discussed patient's progress in PT/OT/ST/SN/MD. Educated to Medicare approval of 18 days with DC 01/17. Pt is gertrude lift for transfers, low initiation and motivation, new on O2, and leaning heavily to the side. Though, eating and sleeping better. Pt struggles to engage in therapy sessions. stated she had a long talk with him this morning about that. Therapy offered for to be present for therapy sessions to assist with pt motivation and agreed. SW informed the [facility] can accept, and SNF remains the IDTs recommendation. prefers [facility] and stated she has not had a discussion with SNF placement with pt. SW spoke with pt at eye-level, and explained [facility] is able to accept pt for continued therapy and care. Pt voiced agreement. SW to coordinate transportation and secure [facility] SW will continue to follow. - 7000 started in [facility]. Plan: DC 01/17, [facility], skilled Yaz Riggs [employer]PRESENT[employer]
[2025-01-09] MEDS: Saliva Substitute 237 ML BOTTLE 15 ML MUCOUS MEM ×3 (14:10→21:45)
[2025-01-09 18:00] VITALS: BP 104/61; PULSE 84; RESP 16; TEMP 37.2; O2SAT 94
[2025-01-09 21:50] VITALS: BP 109/61; PULSE 91
[2025-01-09] MEDS: Metoprolol(XL)Succ 25 MG Tablet PO (21:50)
[2025-01-10] VITALS: O2SAT 94
[2025-01-10 06:00] VITALS: BP 99/52; PULSE 92; RESP 17; TEMP 36.9; O2SAT 93; BMI 23.8
[2025-01-10 06:24] LABS: Anion Gap 8 (5-15); BUN 29 mg/dL (4-19); BUN/Creat Ratio 29.8 RATIO (10-20); Calcium,Total 9.3 mg/dL (7.6-11.0); Carbon Dioxide 24.4 mmol/L (21.0-32.0); Chloride 106 mmol/L (98-108); Estimated Creatinine Clearance 70.91 ml/min (50-250); Glucose 115 mg/dL (70-99); Potassium 4.4 mmol/L (3.3-5.1)
[2025-01-10] MEDS: Magnesium Chloride 64 MG Delay Rel.Tablet 128 MG PO (08:25)
[2025-01-10] MEDS: Senna/Docusate Sodium 1 Tablet 2 TABLET PO (08:25)
[2025-01-10 08:26] VITALS: PULSE 98
[2025-01-10] MEDS: Metoprolol(XL)Succ 50 MG Tablet PO (08:26)
[2025-01-10] MEDS: Saliva Substitute 237 ML BOTTLE 15 ML MUCOUS MEM ×4 (08:30→21:29)
[2025-01-10 10:00] VITALS: RESP 18
[2025-01-10] MEDS: Petrolatum 33% Tube 1 APPLIC TOPICAL (14:00)
[2025-01-10] MEDS: 0.9% Saline Lock 10 ML Syringe IV (16:10)
[2025-01-10 16:34] VITALS: BP 112/69; PULSE 85; RESP 16; TEMP 37; O2SAT 100
[2025-01-10 21:33] VITALS: BP 113/55; PULSE 83
[2025-01-10] MEDS: Metoprolol(XL)Succ 25 MG Tablet PO (21:33)
[2025-01-11] VITALS (7 sets, daily range): BP systolic 96–121; BP diastolic 64–77; PULSE 84–92; RESP 16–20; TEMP 36.8–37; O2SAT 93–95
[2025-01-11] MEDS: Saliva Substitute 237 ML BOTTLE 15 ML MUCOUS MEM ×3 (09:20→20:46)
[2025-01-11] MEDS: Magnesium Chloride 64 MG Delay Rel.Tablet 128 MG PO (09:21)
[2025-01-11] MEDS: Senna/Docusate Sodium 1 Tablet 2 TABLET PO ×2 (09:21→20:45)
[2025-01-11] MEDS: Metoprolol(XL)Succ 50 MG Tablet PO (09:22)
[2025-01-11] MEDS: Metoprolol(XL)Succ 25 MG Tablet PO (20:45)
[2025-01-12 06:09] VITALS: BP 107/64; PULSE 102; RESP 16; TEMP 37.2; O2SAT 92
[2025-01-12] MEDS: Saliva Substitute 237 ML BOTTLE 15 ML MUCOUS MEM ×2 (07:44→20:47)
[2025-01-12 07:45] VITALS: BP 107/64; PULSE 102
[2025-01-12] MEDS: Metoprolol(XL)Succ 50 MG Tablet PO (07:45)
[2025-01-12] MEDS: Senna/Docusate Sodium 1 Tablet 2 TABLET PO (07:45)
[2025-01-12] MEDS: Magnesium Chloride 64 MG Delay Rel.Tablet 128 MG PO (07:46)
[2025-01-12 18:00] VITALS: BP 122/60; PULSE 89; RESP 16; TEMP 36.7; O2SAT 96
[2025-01-12 20:30] VITALS: BP 107/71; PULSE 98; RESP 20; TEMP 36.6; O2SAT 96
[2025-01-12 20:44] VITALS: BP 107/71; PULSE 98
[2025-01-12] MEDS: Metoprolol(XL)Succ 25 MG Tablet PO (20:44)
[2025-01-12 22:00] VITALS: RESP 20; O2SAT 96
[2025-01-13 06:00] VITALS: BP 105/62; PULSE 101; RESP 16; TEMP 37.1; O2SAT 96
[2025-01-13] MEDS: Saliva Substitute 237 ML BOTTLE 15 ML MUCOUS MEM ×4 (08:03→20:14)
[2025-01-13] MEDS: Magnesium Chloride 64 MG Delay Rel.Tablet 128 MG PO (08:04)
--- NOTE | 2025-01-13 08:34 | PN_ITS ---
Subjective Subjective Afebrile VSS -resting heart rates are ranging from 89-1 02 over the past 24 hours. Blood pressure has ranged from 105/62 to 122/68. Maintaining appropriate oxygen saturation on RA Oral intake - FOOD variable FLUIDS - very poor.......has not even been taking 1,000 cc a day and his fluid restriction allows 1400 cc/day. Remains incontinent of stool and urine Discussed with nursing - Refused to eat today because his was not there. Therapists report he is not motivated to work with them and does not really participate or put forth much effort. He keeps his eyes closed, even when he is awake and talking with us. He seems to be regressing rather than improving. Will be going to SNF on Monday. Reviewed the THERAPY notes Medication list reviewed. Denies cephalgia today and also denies lightheadedness. He has no CP and is not c/o CP, SOB or cough. No dysuria.......has been persistently incontinent. No N/V/Abd pain.......just has no appetite he says. Objective Data Objective Data Vital Signs: Vital Signs Temp Pulse Resp BP Pulse Ox O2 Del Method O2 Flow Rate 98.7 F 101 H 16 105/62 96 Nasal Cannula 2 01/13/25 06:00 01/13/25 06:00 01/13/25 06:00 01/13/25 06:00 01/13/25 06:00 01/13/25 06:00 01/13/25 06:00 FiO2 94 01/05/25 22:00 Oxygen Flow Rate (L/min) 2 Oxygen Delivery Method Nasal Cannula Weight: 191 lb 2.252 oz Body Mass Index (BMI) 23.8 Intake & Output: Intake and Output for Last 24 Hours 01/11/25 01/12/25 01/13/25 23:59 23:59 23:59 Intake Total 950 / 950 885 / 885 340 / 340 Output Total 0 / 0 200 / 200 Balance 950 / 950 885 / 885 140 / 140 Lab / Micro Data 01/06/25 12:13 01/10/25 05:44 Micro: Microbiology 12/31/24 15:00 Urine Catheter - Catheter Urine Culture - Final Enterococcus faecalis 01/01/25 06:58 Stool Stool Occult Blood (AMOS) - Final Occult Blood Positive Physical Exam Const Constitutional Narrative: Lying in bed with eyes closed when I entered the room. Opened his eyes when I called his name. Not making good eye contact with me today. closing his eyes when I am talking with him. HEENT Mouth: dry mucous membranes Neck General: trachea midline Resp clear to auscultation bilaterally Cardio Cardio Narrative: Irregular irregular rhythm with controlled ventricular response GI normal to inspection, nondistended, normoactive bowel sounds and soft to palpation GI Narrative: No guarding with palpation Extremity General Extremity: Negative for edema Skin Rashes: no rashes Psych Mood & Affect: depressed Thought Content: No suicidality Assessment & Plan Assessment/Plan (1) Debility: (2) Intracerebral bleed due to trauma: QUALIFIERS: Encounter type: subsequent encounter Laterality: u nspecified laterality Loss of consciousness presence/duration: without LOC Q ualified Code(s): S06.360D - Traumatic hemorrhage of cerebrum, unspecified, without loss of consciousness, subsequent encounter (3) Mild cognitive impairment: (4) Acute left-sided weakness: (5) Paresthesias: (6) Depression: QUALIFIERS: Depression Type: reactive depression Qualified Code(s): F32.9 - Major depressive disorder, single episode, unspecified (7) Urinary incontinence: QUALIFIERS: Urinary Incontinence type: urinary incontinence without sensory awareness Qualified Code(s): N39.42 - Incontinence without sensory awareness (8) Fecal incontinence: QUALIFIERS: Fecal incontinence type: unspecified Qualified Code(s): R15.9 - Full incontinence of feces (9) Essential (primary) hypertension: (10) Paroxysmal atrial fibrillation: (11) Chronic anticoagulation: (12) Peripheral neuropathy: QUALIFIERS: Peripheral neuropathy type: polyneuropathy, other Q ualified Code(s): G62.89 - Other specified polyneuropathies (13) PAD (peripheral artery disease): (14) Heme positive stool: (15) Hyponatremia: (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 Continue therapy 2. Increase Remeron to 22.5 mg nightly 3. CBC and BMP on Monday 4. Will discharge on 01/17/2025 to long term. 5. Encouraged him to increase fluid intake to 1400 cc/day. 6. We had a reality talk today. I related that he has not really had significant improvement in his condition since arriving on rehab. I also discussed that the therapists feel he is not trying very hard and does not initiate any activity/movement. Does not help when they are turning him to the left side, even though he can use his R arm to grab the bedrail and pull to get himself on his side. When he is sitting in a chair he is slumping forward and not maintaining an upright posture. Neck pain is better.......therapy using a soft collar at times to help support his head because he always the head to slump forward toward the chest. Very poor motivation. He is refusing to eat for nursing because his isn't there? He has actually declined over the weekend in my opinion. There is long standing psychologic dysfunction at play here and I think this is impacting his ability to participate with therapy. Until the depression and manipulative behaviors improve I can not see him making any progress with therapy. He needs to see psychiatry and have counselling.......this is not available on acute rehab but, will be available when he is in long term. Charges/Coding Visit Charges Inpatient E&M: 55713 Subs Hosp L1
[2025-01-13 10:39] VITALS: PULSE 100
[2025-01-13] MEDS: Metoprolol(XL)Succ 50 MG Tablet PO (10:39)
[2025-01-13 18:00] VITALS: BP 101/65; PULSE 98; RESP 15; TEMP 36.7; O2SAT 95
[2025-01-13 19:45] VITALS: O2SAT 97
[2025-01-13 20:08] VITALS: BP 103/58; PULSE 101
[2025-01-13] MEDS: Metoprolol(XL)Succ 25 MG Tablet PO (20:08)
[2025-01-13] MEDS: Senna/Docusate Sodium 1 Tablet 2 TABLET PO (20:08)
[2025-01-14 06:00] VITALS: BP 92/58; PULSE 95; RESP 15; TEMP 36.6; O2SAT 15
[2025-01-14] MEDS: Petrolatum 33% Tube 1 APPLIC TOPICAL (06:34)
[2025-01-14 06:44] VITALS: O2SAT 94
[2025-01-14] MEDS: Saliva Substitute 237 ML BOTTLE 15 ML MUCOUS MEM ×4 (07:48→19:52)
[2025-01-14 07:49] VITALS: BP 92/58; PULSE 95
[2025-01-14] MEDS: Metoprolol(XL)Succ 50 MG Tablet PO (07:49)
[2025-01-14] MEDS: Magnesium Chloride 64 MG Delay Rel.Tablet 128 MG PO (07:49)
--- NOTE | 2025-01-14 11:49 | PN_ITS ---
Subjective Subjective Afebrile Blood pressure over the past 24 hours has ranged from 92/58 (this AM) to 105/62 heart rate has ranged from 95-101. Not alerting nursing when he has been incontinent or when he has to urinate or have a bowel movement. Had been continent of stool toward the end of last week. Poor oral intake. Fluid intake yesterday was only 910 cc. Has not refused any meals for the past 48 hours but intake varies from 25% to 75%. Poor fluid intake. Does not come close to drinking his 1400 cc's he is allowed. Denies GARCIA toady. no CP, palpitations, lightheadedness, N/V/cough/dysuria. Objective Data Objective Data Vital Signs: Vital Signs Temp Pulse Resp BP Pulse Ox O2 Del Method O2 Flow Rate 97.8 F 95 15 92/58 L 94 Room Air 2 01/14/25 06:00 01/14/25 07:49 01/14/25 06:00 01/14/25 07:49 01/14/25 06:44 01/14/25 06:44 01/13/25 06:00 FiO2 94 01/05/25 22:00 Oxygen Flow Rate (L/min) 2 Oxygen Delivery Method Room Air Weight: 191 lb 2.252 oz Body Mass Index (BMI) 23.8 Intake & Output: Intake and Output for Last 24 Hours 01/12/25 01/13/25 01/14/25 23:59 23:59 23:59 Intake Total 885 / 885 910 / 910 340 / 340 Output Total 0 / 0 200 / 200 Balance 885 / 885 710 / 710 340 / 340 Lab / Micro Data 01/15/25 05:29 01/15/25 05:29 Micro: Microbiology 12/31/24 15:00 Urine Catheter - Catheter Urine Culture - Final Enterococcus faecalis 01/01/25 06:58 Stool Stool Occult Blood (AMOS) - Final Occult Blood Positive Physical Exam Const Constitutional Narrative: poor voice quality, not projecting and soft. does better when he is talking with his company at night. appears very weak and he is keeping his eyes closed. Poor eye contact with me. HEENT Mouth: dry mucous membranes Resp clear to auscultation bilaterally Effort and Inspection: Negative for tachypneic or labored Cardio no gallops Cardio Narrative: A-fib with controlled ventricular response GI normal to inspection, nondistended, normoactive bowel sounds and soft to palpation GI Narrative: No guarding with palpation Extremity no calf tenderness General Extremity: Negative for edema Assessment & Plan Assessment/Plan (1) Debility: (2) Intracerebral bleed due to trauma: QUALIFIERS: Encounter type: subsequent encounter Laterality: u nspecified laterality Loss of consciousness presence/duration: without LOC Q ualified Code(s): S06.360D - Traumatic hemorrhage of cerebrum, unspecified, without loss of consciousness, subsequent encounter (3) Mild cognitive impairment: (4) Acute left-sided weakness: (5) Paresthesias: (6) Depression: QUALIFIERS: Depression Type: reactive depression Qualified Code(s): F32.9 - Major depressive disorder, single episode, unspecified PLAN: Depression is long standing but, he never sought treatment. Started on Remeron 15 mg at admission to rehab and increased to 22.5 mg on 01/13/25. Would benefit from psychotherapy. (7) Urinary incontinence: QUALIFIERS: Urinary Incontinence type: urinary incontinence without sensory awareness Qualified Code(s): N39.42 - Incontinence without sensory awareness PLAN: Incontinent of urine most of the time. Will not even alert nursing when he has been incontinent. The week prior to DC he had been continent a few times but, has been regressing the last 5 -7 days prior to discharge. He denies dysuria and has had no fevers and no leukocytosis. We check a UA prior to DC and it was negative for infection. (8) Fecal incontinence: QUALIFIERS: Fecal incontinence type: unspecified Qualified Code(s): R15.9 - Full incontinence of feces (9) Essential (primary) hypertension: PLAN: Blood pressure was low early in the week of discharge so we have been decreasing the antihypertensives. He is only on Metoprolol at the time of discharged from rehab and this is needed to control the HR with AF. (10) Paroxysmal atrial fibrillation: (11) Chronic anticoagulation: PLAN: Will defer to neurosurgery to determine when he can restart anticoagulation. He is going to follow up with Dr. Do. (12) Peripheral neuropathy: QUALIFIERS: Peripheral neuropathy type: polyneuropathy, other Q ualified Code(s): G62.89 - Other specified polyneuropathies PLAN: Not c/o pain in the legs at the time of DC. He started to c/o pain in the L arm and the left leg while on rehab and this was attributed to central neuropathic pain related to the intracerebral bleed. He was started on Gabapentin 100 mg BID and this has been effective in relieving that pain. (13) PAD (peripheral artery disease): (14) Heme positive stool: PLAN: HGB is WNL. He has no nausea or abd pain. He was started on a PPI because he was having some N/V early in the admission and he no longer has N/V/heartburn or epigastric pain. (15) Hyponatremia: PLAN: W/U consistent with SIADH. Placed on salt tabs and fluid restriction of 1400 cc's daily. Never even comes close to taking 1400 cc's in 24 H. We have been encouraging him to increase his fluid intake to no avail. 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 twice daily (17) Torticollis, acquired: PLAN: Due to hypertonicity of muscles in the left neck and upper thoracic area. He had a Botox injection from Dr. Aleman and this is improved significantly. He no longer has torticollis or lateral James. (18) Laterocollis: (19) Acute cystitis with hematuria: PLAN: Present at admission to rehab. Due to Enterococcus faecalis. It was sensitive to Macrobid and he was taking Macrobid but when he developed a left basilar pneumonia he was transitioned to Levaquin. He developed acute delirium after a few days on intravenous Levaquin and he was transition from Levaquin to Augmentin to finish appropriate course of treatment for left lower lobe pneumonia and cystitis. (20) Hospital-acquired pneumonia: PLAN: Resolved with Levaquin eith transition to Augmentin due to acute delirium on Levaquin. (21) Sleep apnea: QUALIFIERS: Sleep apnea type: obstructive Qualified Code(s): G 47.33 - Obstructive sleep apnea (adult) (pediatric) PLAN: This was diagnosed many years ago and pt has not been compliant with CPAP and does not wear oxygen when sleeping. He had a overnight trending pulse ox while on rehab and he had only 1 and 1/2 minutes when O2 sat was 89 or less. There were no desaturation events > 60 sec. Does not need oxygen supplementation at night. (22) Acute delirium: PLAN: due to Levaquin. Resolved with discontinuation of Levaquin. (23) Weight loss, non-intentional: (24) Decubitus ulcer: QUALIFIERS: Pressure injury location: heel Pressure injury stage: stage 1 Laterality: left Qualified Code(s): L89.621 - Pressure ulcer of left heel, stage 1 PLAN: Plan 1. Continue therapy 2. Hold lisinopril for hypotension 3. Lab ordered for the a.m. 4. Check a UA today Charges/Coding Visit Charges Inpatient E&M: 31258 Subs Hosp L1
--- NOTE | 2025-01-14 14:44 | PCM.TXEXTCAR ---
Diet Diet Order/Speech Therapy: INPATIENT Hospital Diet / Speech Therapy Order(s) 12/30/24 18:38 Diet: Cardiac - Heart Healthy Type of Dietary Supplement:: Ensure Plus High Protein Fluid restriction:: 1400 mL Diet Comments: 240ml nuha EPHP with lunch// Chocolate ensure milkshake with dinner Routine Orders/Code Status Enema Type: Fleetz Enema Frequency: Daily PRN Suppository Type: Dulcolax 10mg Suppository Frequency: Daily PRN Code Status: Full Code DC O2, CPAP, BIPAP needs Home O2 Discharge instructions: No Wound(s) LL Back: Wound Type: Skin Tear Suggestions for Active Care Change Position every (hours): 2 Therapies Weight Bearing: Weight bearing as tolerated (no weight bearing restrictions. He is still requiring a gertrude lift to get him from the bed to the at the time of DC from rehab. ) Extremity Affected:: Bilateral Lower and Left Upper Physical Therapy: Eval and Treat Occupational Therapy: Eval and Treat Speech Therapy: Eval and Treat Problem/Diagnosis (1) Debility: Status: Acute Code(s): R53.81 - Other malaise (2) Intracerebral bleed due to trauma: Status: Acute Code(s): S06.36AA - Traumatic hemorrhage of cerebrum, unspecified, with loss of consciousness status unknown, initial encounter Comment: Due to a fall on 12/20/2024 causing him to strike his head in pt on chronic anticoagulation with Xarelto. SDH's, SAH. No surgical intervention was done. (3) Ischemic cerebrovascular accident (CVA): Status: Acute Code(s): I63.9 - Cerebral infarction, unspecified Comment: F/U [place] CTB on 01/15/25 showed 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 (4) Mild cognitive impairment: Status: Acute Code(s): G31.84 - Mild cognitive impairment of uncertain or unknown etiology (5) Acute left-sided weakness: Status: Acute Code(s): R53.1 - Weakness (6) Paresthesias: Status: Acute Code(s): R20.2 - Paresthesia of skin Comment: chronic paresthesias in the BL LE's. New numbness in the Left face and the LUE. (7) Depression: Status: Chronic Code(s): F32.A - Depression, unspecified Plan: Depression is long standing but, he never sought treatment. Started on Remeron 15 mg at admission to rehab and increased to 22.5 mg on 01/13/25. Would benefit from psychotherapy. (8) Urinary incontinence: Status: Chronic Code(s): R32 - Unspecified urinary incontinence Plan: Incontinent of urine most of the time. Will not even alert nursing when he has been incontinent. The week prior to DC he had been continent a few times but, has been regressing the last 5 -7 days prior to discharge. He denies dysuria and has had no fevers and no leukocytosis. We check a UA prior to DC and it was negative for infection. (9) Fecal incontinence: Status: Chronic Code(s): R15.9 - Full incontinence of feces (10) Essential (primary) hypertension: Status: Chronic Code(s): I10 - Essential (primary) hypertension Plan: Blood pressure was low early in the week of discharge so we have been decreasing the antihypertensives. He is only on Metoprolol at the time of discharged from rehab and this is needed to control the HR with AF. With discontinuation of Lisinopril the BP improved and is within goal at the time of DC from rehab. (11) Paroxysmal atrial fibrillation: Status: Chronic Code(s): I48.0 - Paroxysmal atrial fibrillation Plan: Xarelto has been on hold since the ICH. He has follow up with Dr. Do scheduled and will defer to Dr. Do to restart chronic anticoagulation. Comment: diagnosed 2011 (12) Chronic anticoagulation: Status: Chronic Code(s): Z79.01 - buttermaker (current) use of anticoagulants Plan: Will defer to neurosurgery to determine when he can restart anticoagulation. He is going to follow up with Dr. Do. Comment: Xarelto....currently on hold due to intracerebral bleeding. (13) Peripheral neuropathy: Status: Chronic Code(s): G62.9 - Polyneuropathy, unspecified Plan: Not c/o pain in the legs at the time of DC. He started to c/o pain in the L arm and the left leg while on rehab and this was attributed to central neuropathic pain related to the intracerebral bleed. He was started on Gabapentin 100 mg BID and this has been effective in relieving that pain. Comment: Likely due to LS DJD/DDD/chronic back pain. (14) PAD (peripheral artery disease): Status: Chronic Code(s): I73.9 - Peripheral vascular disease, unspecified Comment: Arterial 11/03/22: Right MARGE 1.1, normal. Doppler/PVR waveforms of the right ankle normal at rest. TBI diminished, pedal/digit disease Left MARGE 0.74, moderate arterial insufficiency. Doppler/PVR waveforms of the left ankle moderately diminished at rest. (15) Heme positive stool: Status: Acute Code(s): R19.5 - Other fecal abnormalities Plan: HGB is WNL. He has no nausea or abd pain. He was started on a PPI because he was having some N/V early in the admission and he no longer has N/V/heartburn or epigastric pain. (16) Hyponatremia: Status: Acute Code(s): E87.1 - Hypo-osmolality and hyponatremia Plan: W/U consistent with SIADH. Placed on salt tabs and fluid restriction of 1400 cc's daily. Never even comes close to taking 1400 cc's in 24 H. We have been encouraging him to increase his fluid intake to no avail. Sodium on 01/15/25 was 134. 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 twice daily. (18) Torticollis, acquired: Status: Resolved Code(s): M43.6 - Torticollis Plan: Due to hypertonicity of muscles in the left neck and upper thoracic area. He had a Botox injection from Dr. Aleman and this is improved significantly. He no longer has torticollis or lateral James. (19) Laterocollis: Status: Resolved Code(s): G24.3 - Spasmodic torticollis (20) Acute cystitis with hematuria: Status: Resolved Code(s): N30.01 - Acute cystitis with hematuria Plan: Present at admission to rehab. Due to Enterococcus faecalis. It was sensitive to Macrobid and he was taking Macrobid but when he developed a left basilar pneumonia he was transitioned to Levaquin. He developed acute delirium after a few days on intravenous Levaquin and he was transition from Levaquin to Augmentin to finish appropriate course of treatment for left lower lobe pneumonia and cystitis. (21) Hospital-acquired pneumonia: Status: Acute Code(s): J18.9 - Pneumonia, unspecified organism; Y95 - Nosocomial condition Plan: Resolved with Levaquin eith transition to Augmentin due to acute delirium on Levaquin. (22) Sleep apnea: Status: Chronic Code(s): G47.30 - Sleep apnea, unspecified Plan: This was diagnosed many years ago and pt has not been compliant with CPAP and does not wear oxygen when sleeping. He had a overnight trending pulse ox while on rehab and he had only 1 and 1/2 minutes when O2 sat was 89 or less. There were no desaturation events > 60 sec. Does not need oxygen supplementation at night. Comment: Does not wear CPAP and does not wear oxygen anytime he is sleeping. (23) Acute delirium: Status: Resolved Code(s): R41.0 - Disorientation, unspecified Plan: due to Levaquin. Resolved with discontinuation of Levaquin. (24) Weight loss, non-intentional: Status: Acute Code(s): R63.4 - Abnormal weight loss Comment: weight decreased 11 lbs while on rehab due to poor appetite and intake. supplements were provided. (25) Decubitus ulcer: Status: Resolved Code(s): L89.90 - Pressure ulcer of unspecified site, unspecified stage Plan: Stage 1 left heel. Placed in heel protector and it is no longer boggy to palpation at DC from rehab (26) Subluxation of left shoulder joint: Status: Acute Code(s): S43.002A - Unspecified subluxation of left shoulder joint, initial encounter Plan: due to CVA/Left hemiparesis. Placed in a rotator cuff sling prior to DC from rehab. Plan 1. DC to [facility] on 01/17/25. 2. Allergies/Procedures Done in Hospital Allergies levofloxacin (From Levaquin) Adverse Reaction (Verified 01/14/25 15:15) acute delirium Procedures: None Type of Care/Length of Stay Estimated LOS: Convalescent Care Less Than 30 days Type of Care Needed: Skilled Rehab Potential: Fair ( ) Prognosis: Fair Additional Orders/Day of Discharge Additional Orders: He needs to be evaluated and treated by psych. H&P will serve as current which was dated: 12/31/24 Day of Discharge: 01/17/25 Dietary and Speech Recommendations Dietitian Recommendations/Changes: Continue Cardiac diet to manage medial conditions with 1400ml fluid restriction. Will order chocolate ensure milkshake with dinner. Will order 240ml chocolate EPHP with lunch. Will discontinue ensure clear with medpass due to pt refusing. Will monitor weight trends. Follow Up Care Please Follow Up With: Dr. Do When: 01/28/25 at 11:30AM Please Follow Up With: Philip Villa MD Please Follow Up With: Mateo Crane YARN BLEACHING MACHINE OPERATOR, YARN BLEACHING MACHINE OPERATOR-C Discharge Plan Admission Admit Date/Time: 12/30/24 18:14 Primary Reason for Your Visit: Debility due to intracerebral bleed. Attending Provider: Savanna Kelly Primary Care Provider: Briseida Vergara Consulting Providers: Nohelia Aleman Instructions Additional Instructions / Restrictions: 1. He will need to follow up with Mateo Crane NP from [facility] at some point. currently not able to sit in a WC and maintain and upright posture. 2. He has an appt with Dr. Do (neurosurgery) scheduled. Will defer restarting Xarelto to Dr. Do. 3. He should also follow up with neurology as an OP. 4. He has subluxation/pain of the Left shoulder and was placed in a rotator cuff sling on 01/16/25 to help with this. Subluxation is due to Severe weakness of the left arm........can only really flex his fingers weakly at the time of DC from rehab. 5. He is incontinent of stool and urine. 6. He had a stage I decub of the left heel which has resolved. 7. He is severely depressed. Now up to 22.5 mg of Remeron at HS. Appetite has improved and he rarely refuses a meal now. Has lost 11 lbs form 12/30/24 to 01/14/25. 8. CT scan on 01/15/25 shows the subdural hematoma is decreasing in size and there are no new or enlarging acute intracranial findings. Unfortunately the CT scan shows chronic moderate-sized ischemic infarct within the bilateral parietal?occipital watershed areas, left greater than right. There are mild scattered supratentorial white matter hypodensities and a lacunar type infarct within the right basal ganglia. MRI on 12/26/24 at previous hospital did not clearly show any ischemic infarcts. These may have occurred following [facility] and withholding anticoagulation due to the bleeding. This helps to explain why he really has not made much progress on rehab. 9. BP has recently been on the low side and Lisinopril was discontinued on . BP at [place] is better and within goal of < 130/80. 10. He had acute cystitis and LLL PNA while on rehab. He had Delirium with Levaquin and it resolved with discontinuation of the drug. Discharge Orders/Prescriptions Prescriptions: New bisacodyl 10 mg Suppository 10 mg IL X1 PRN (Reason: Constipation) Qty: 0 0RF magnesium hydroxide 400 mg/5 mL Suspension 30 ml PO X1 PRN (Reason: Constipation) Qty: 0 0RF mirtazapine 15 mg Tablet 22.5 mg PO 2000 Qty: 1 0RF gabapentin 100 mg Capsule 100 mg PO 0600,1800 Qty: 0 0RF metoprolol succinate 25 mg Tablet Extended Release 24 Hr 25 mg PO QHS Qty: 0 0RF magnesium chloride 64 mg Tablet,Delayed Release (Dr/Ec) 128 mg PO DAILY Qty: 0 0RF menthol-zinc oxide [Calmoseptine] 0.44-20.6 % Ointment 1 applic topical BID Qty: 0 0RF Protocol: *Topical Application Instructions APPLICATION INSTRUCTIONS: Coccyx sennosides-docusate sodium [Stimulant Laxative Plus] 8.6-50 mg Tablet 2 tab PO BID Qty: 0 0RF pantoprazole 40 mg Tablet,Delayed Release (Dr/Ec) 40 mg PO DAILY Qty: 0 0RF Biotene Dry Mouth Oral Rinse Mouthwash 15 ml mucous membrane 4X/DAY Qty: 0 0RF Petrolatum 33% [Eucerin Eqivalent] 1 applic topical QHS Qty: 1 0RF Rx Instructions: apply to the distal LE's from the knee to the toes. sodium chloride 1,000 mg Tablet,Soluble 1,000 mg PO BID Qty: 0 0RF Continued metoprolol succinate 50 mg tablet extended release 24 hr 50 mg PO DAILY Changed acetaminophen 500 mg tablet 1,000 mg PO Q8 PRN (Reason: pain/fever) Qty: 1 0RF oxycodone 5 mg tablet 5 mg PO Q6H PRN (Reason: pain 4-10) 7 Days Qty: 10 0RF Discontinued lisinopril 20 mg tablet 20 mg PO DAILY Qty: 90 3RF cyclobenzaprine 5 mg tablet 5 mg PO TID PRN (Reason: muscle spasm) Mag Glycinate 100 mg tablet 200 mg PO DAILY Referrals / Follow Up: Hi Mckeon [Other] - 01/28/25 11:[address] Scan [Other] - 01/28/25 10:45 am Briseida Vergara MD [Primary Care Provider] - (PT GOING TO SNF ) Disposition Disposition (needs filled in before D/C Order can be placed): Group Home Facility (2) Intracerebral bleed due to trauma Qualifiers: Encounter type: subsequent encounter Laterality: unspecified laterality Loss of consciousness presence/duration: without LOC Qualified Code(s): S06.360D - Traumatic hemorrhage of cerebrum, unspecified, without loss of consciousness, subsequent encounter (7) Depression Qualifiers: Depression Type: reactive depression Qualified Code(s): F32.9 - Major depressive disorder, single episode, unspecified (8) Urinary incontinence Qualifiers: Urinary Incontinence type: urinary incontinence without sensory awareness Qualified Code(s): N39.42 - Incontinence without sensory awareness (9) Fecal incontinence Qualifiers: Fecal incontinence type: unspecified Qualified Code(s): R15.9 - Full incontinence of feces (13) Peripheral neuropathy Qualifiers: Peripheral neuropathy type: polyneuropathy, other Qualified Code(s): G62.89 - Other specified polyneuropathies (22) Sleep apnea Qualifiers: Sleep apnea type: obstructive Qualified Code(s): G47.33 - Obstructive sleep apnea (adult) (pediatric) (26) Subluxation of left shoulder joint Qualifiers: Encounter type: initial encounter Qualified Code(s): S43.002A - Unspecified subluxation of left shoulder joint, initial encounter
[2025-01-14 16:12] LABS: Mucous, Urine 0 SEEN /hpf (<or=2+)
[2025-01-14 17:14] LABS: Color, Urine Yellow (Yellow); Glucose, Dipstick Normal (Normal); Ketone-Dipstick Negative (Negative); Leukocyte Esterase-Dipstick Negative /ul (Negative); Nitrite-Dipstick Negative (Negative); Occult Blood-Urine Negative /ul (Negative); Protein-Dipstick 15 mg/dl (Negative); Specific Gravity, Urine 1.020 (1.002-1.030); Urine Bilirubin Dipstick Negative (Negative)
[2025-01-14 18:00] VITALS: BP 113/66; PULSE 89; RESP 18; TEMP 37.1; O2SAT 98
[2025-01-14 18:00] LABS: Red Blood Cells-Urine 0-5 SEEN /hpf (0-5); Squamous Epithelial Cells - UA 0-5 SEEN /hpf (0-5)
[2025-01-14 19:49] VITALS: BP 109/58; PULSE 90; RESP 16; O2SAT 93
[2025-01-14 19:52] VITALS: BP 109/58; PULSE 90
[2025-01-14] MEDS: Senna/Docusate Sodium 1 Tablet 2 TABLET PO (19:52)
[2025-01-14] MEDS: Metoprolol(XL)Succ 25 MG Tablet PO (19:52)
--- NOTE | 2025-01-15 03:23 | NURSING ---
01/15/25 @ 02:20- SpO2 level 94-95% on 2L O2.
[2025-01-15 05:38] LABS: Hematocrit 39.0 % (40-54); Hemoglobin 13.2 g/dL (13.0-16.5); Mean Corp Hgb Conc 33.8 g/dL (32-36); Mean Corpuscular Volume 91.1 fL (80-94); Mean Platelet Vol. 11.7 fl (6.2-12.0); Platelet Count 194 K/mm3 (150-450); RBC Distribution Width CV 13.8 % (11.6-14.6); RBC Distribution Width SD 46.2 fl (35.1-43.9); Red Blood Count 4.28 M/mm3 (4.6-6.2); White Blood Count 7.0 K/mm3 (4.4-11.0)
[2025-01-15 05:56] LABS: AST(SGOT) 32 U/L (<=37); Alanine Aminotransfer ALT/SGPT 22 U/L (<=46); Albumin, Serum 3.1 g/dL (3.4-4.8); Alkaline Phosphatase 144 U/L (40-129); Anion Gap 10 (5-15); BUN 28 mg/dL (4-19); BUN/Creat Ratio 38.2 RATIO (10-20); Calcium,Total 9.1 mg/dL (7.6-11.0); Carbon Dioxide 20.7 mmol/L (21.0-32.0); Chloride 103 mmol/L (98-108); Estimated Creatinine Clearance 85.09 ml/min (50-250); Globulin 3.1 g/dL (2.2-4.2); Glucose 105 mg/dL (70-99); Potassium 4.4 mmol/L (3.3-5.1)
[2025-01-15 06:00] VITALS: BP 93/55; PULSE 97; RESP 16; TEMP 37.2; O2SAT 96
[2025-01-15] MEDS: Saliva Substitute 237 ML BOTTLE 15 ML MUCOUS MEM ×4 (08:10→20:34)
[2025-01-15 08:11] VITALS: PULSE 97
[2025-01-15] MEDS: Metoprolol(XL)Succ 50 MG Tablet PO (08:11)
[2025-01-15] MEDS: Senna/Docusate Sodium 1 Tablet 2 TABLET PO ×2 (08:11→20:32)
[2025-01-15] MEDS: Magnesium Chloride 64 MG Delay Rel.Tablet 128 MG PO (08:12)
--- NOTE | 2025-01-15 12:25 | PN_ITS ---
Subjective Subjective Afebrile VSS - Maintaining appropriate oxygen saturation on RA Oral intake - FOOD has been doing better with food. He refused lunch yesterday but ate -50 to 74% of his supper and he had 75 to 100% of his breakfast this morning. FLUIDS fluid intake yesterday was 1090 cc. Discussed with nursing - no problems that need addressed. Remains incontinent of urine and stool. Reviewed the THERAPY notes Medication list reviewed. UA yesterday showed 0-5 RBCs and 0-5 WBCs per high-power field. There was no bacteria seen. He had 0-5 hyaline casts. Lab today shows a normal white blood cell count of 7.0 hemoglobin is 13.2 which is down from 15.1 on 01/06/2025. Platelets are within normal limits. Sodium is 134 and the potassium is 4.4. BUN is stable at 28 and the creatinine is 0.73 which is down from 0.96 on 01/10/2025. BUN/creatinine ratio is 38.2 and we continue to encourage him to drink 1400 cc daily but he is not compliant with this. He is c/o a GARCIA today. He did not have a GARCIA yesterday but, he had 1 the day prior. I suspect this is due to dehydration but, will check a CTB today. Denies chest pain, shortness of breath, palpitations, abdominal pain, nausea/vomiting, calf tenderness. Denies pain in the left arm and the left leg today. He tells me he has a little pain in his left shoulder. No neck pain and no torticollis Objective Data Objective Data Vital Signs: Vital Signs Temp Pulse Resp BP Pulse Ox O2 Del Method O2 Flow Rate 98.9 F 97 16 93/55 L 96 Room Air 2 01/15/25 06:00 01/15/25 08:11 01/15/25 06:00 01/15/25 06:00 01/15/25 06:00 01/15/25 09:55 01/14/25 20:13 FiO2 94 01/05/25 22:00 Oxygen Flow Rate (L/min) 2 Oxygen Delivery Method Room Air Weight: 191 lb 2.252 oz Body Mass Index (BMI) 23.8 Intake & Output: Intake and Output for Last 24 Hours 01/13/25 01/14/25 01/15/25 23:59 23:59 23:59 Intake Total 910 / 910 1090 / 1090 320 / 320 Output Total 200 / 200 350 / 350 Balance 710 / 710 740 / 740 320 / 320 Lab / Micro Data 01/15/25 05:29 01/15/25 05:29 Labs: Laboratory Results - last 24 hr 01/14/25 16:00: Urine Color Yellow, Urine Clarity Clear, Urine pH 5.0, Ur Specific [place] 1.020, Urine Protein 15 H, Urine Glucose (UA) Normal, Urine Ketones Negative, Urine Occult Blood Negative, Urine Nitrite Negative, Urine Bilirubin Negative, Urine Urobilinogen Normal, Ur Leukocyte Esterase Negative, Urine RBC 0-5 SEEN, Urine WBC 0-5 SEEN, Ur Squamous Epith Cells 0-5 SEEN, Urine Bacteria 0 SEEN, Hyaline Casts 0-5 SEEN, Urine Mucus 0 SEEN 01/15/25 05:29: WBC 7.0, RBC 4.28 L, Hgb 13.2, Hct 39.0 L, MCV 91.1, MCH 30.8, MCHC 33.8, RDW Std Deviation 46.2 H, RDW Coeff of Chastity 13.8, Plt Count 194, MPV 11.7, Sodium 134, Potassium 4.4, Chloride 103, Carbon Dioxide 20.7 L, Anion Gap 10, BUN 28 H, Creatinine 0.73, Estim Creat Clear Calc 85.09, Est GFR (MDRD) Non- Af 91, BUN/Creatinine Ratio 38.2 H, Glucose 105 H, Calcium 9.1, Total Bilirubin 0.78, AST 32, ALT 22, Alkaline Phosphatase 144 H, Total Protein 6.1, Albumin 3.1 L, Globulin 3.1, Albumin/Globulin Ratio 1.0 Micro: Microbiology 12/31/24 15:00 Urine Catheter - Catheter Urine Culture - Final Enterococcus faecalis 01/01/25 06:58 Stool Stool Occult Blood (AMOS) - Final Occult Blood Positive Physical Exam Const no apparent distress HEENT Mouth: dry mucous membranes Neck General: trachea midline Resp normal respiratory effort and clear to auscultation bilaterally Resp Narrative: good respiratory effort today......lungs CTA, not tachypneic Cardio Cardio Narrative: Irregular irregular rhythm with controlled ventricular response GI normal to inspection, nondistended, normoactive bowel sounds and soft to palpation GI Narrative: No guarding with palpation Extremity no calf tenderness General Extremity: Negative for edema Skin Rashes: no rashes Assessment & Plan Assessment/Plan (1) Debility: (2) Intracerebral bleed due to trauma: QUALIFIERS: Encounter type: subsequent encounter Laterality: u nspecified laterality Loss of consciousness presence/duration: without LOC Q ualified Code(s): S06.360D - Traumatic hemorrhage of cerebrum, unspecified, without loss of consciousness, subsequent encounter (3) Mild cognitive impairment: (4) Acute left-sided weakness: (5) Paresthesias: (6) Depression: QUALIFIERS: Depression Type: reactive depression Qualified Code(s): F32.9 - Major depressive disorder, single episode, unspecified PLAN: Depression is long standing but, he never sought treatment. Started on Remeron 15 mg at admission to rehab and increased to 22.5 mg on 01/13/25. Would benefit from psychotherapy. (7) Urinary incontinence: QUALIFIERS: Urinary Incontinence type: urinary incontinence without sensory awareness Qualified Code(s): N39.42 - Incontinence without sensory awareness PLAN: Incontinent of urine most of the time. Will not even alert nursing when he has been incontinent. The week prior to DC he had been continent a few times but, has been regressing the last 5 -7 days prior to discharge. He denies dysuria and has had no fevers and no leukocytosis. We check a UA prior to DC and it was negative for infection. (8) Fecal incontinence: QUALIFIERS: Fecal incontinence type: unspecified Qualified Code(s): R15.9 - Full incontinence of feces (9) Essential (primary) hypertension: PLAN: Blood pressure was low early in the week of discharge so we have been decreasing the antihypertensives. He is only on Metoprolol at the time of discharged from rehab and this is needed to control the HR with AF. (10) Paroxysmal atrial fibrillation: (11) Chronic anticoagulation: PLAN: Will defer to neurosurgery to determine when he can restart anticoagulation. He is going to follow up with Dr. Do. (12) Peripheral neuropathy: QUALIFIERS: Peripheral neuropathy type: polyneuropathy, other Q ualified Code(s): G62.89 - Other specified polyneuropathies PLAN: Not c/o pain in the legs at the time of DC. He started to c/o pain in the L arm and the left leg while on rehab and this was attributed to central neuropathic pain related to the intracerebral bleed. He was started on Gabapentin 100 mg BID and this has been effective in relieving that pain. (13) PAD (peripheral artery disease): (14) Heme positive stool: PLAN: HGB is WNL. He has no nausea or abd pain. He was started on a PPI because he was having some N/V early in the admission and he no longer has N/V/heartburn or epigastric pain. (15) Hyponatremia: PLAN: W/U consistent with SIADH. Placed on salt tabs and fluid restriction of 1400 cc's daily. Never even comes close to taking 1400 cc's in 24 H. We have been encouraging him to increase his fluid intake to no avail. 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 twice daily (17) Torticollis, acquired: PLAN: Due to hypertonicity of muscles in the left neck and upper thoracic area. He had a Botox injection from Dr. Aleman and this is improved significantly. He no longer has torticollis or lateral James. (18) Laterocollis: (19) Acute cystitis with hematuria: PLAN: Present at admission to rehab. Due to Enterococcus faecalis. It was sensitive to Macrobid and he was taking Macrobid but when he developed a left basilar pneumonia he was transitioned to Levaquin. He developed acute delirium after a few days on intravenous Levaquin and he was transition from Levaquin to Augmentin to finish appropriate course of treatment for left lower lobe pneumonia and cystitis. (20) Hospital-acquired pneumonia: PLAN: Resolved with Levaquin eith transition to Augmentin due to acute delirium on Levaquin. (21) Sleep apnea: QUALIFIERS: Sleep apnea type: obstructive Qualified Code(s): G 47.33 - Obstructive sleep apnea (adult) (pediatric) PLAN: This was diagnosed many years ago and pt has not been compliant with CPAP and does not wear oxygen when sleeping. He had a overnight trending pulse ox while on rehab and he had only 1 and 1/2 minutes when O2 sat was 89 or less. There were no desaturation events > 60 sec. Does not need oxygen supplementation at night. (22) Acute delirium: PLAN: due to Levaquin. Resolved with discontinuation of Levaquin. (23) Weight loss, non-intentional: (24) Decubitus ulcer: QUALIFIERS: Pressure injury location: heel Pressure injury stage: stage 1 Laterality: left Qualified Code(s): L89.621 - Pressure ulcer of left heel, stage 1 PLAN: Plan 1. Continue therapy 2. Zestril was discontinued yesterday due to low blood pressure. Will continue to monitor blood pressures closely. 3. Encouraged him to drink 1400 cc of fluid daily......... has not been doing this for several days. 4. CTB without contrast today due to recent c/o GARCIA......I suspect this isw due to dehydration rather than ICH. BP is low and BUN/CREAT ratio is very elevated. Poor fluid intake. 5. Discharging to SNF on 01/17/25. Talked with Selene today and updated her on labs. Answered her questions. Charges/Coding Visit Charges Inpatient E&M: 45933 Subs Hosp L1
--- NOTE | 2025-01-15 12:32 | CT_ITS ---
EXAM: BRAIN/HEAD WITHOUT CONTRAST CLINICAL HISTORY: 84 y/o M with CEPHALGIA. COMPARISON: CT head, CTA head and neck 12/23/2024. TECHNIQUE: Routine CT imaging of the head without IV contrast. Additional multiplanar reformats were obtained. Dose reduction techniques were used including intermediate exposure control (AEC),iterative reconstruction technique, and/or mA and/or KV dose adjustments based on patient's size. 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 There is mild associated mass effect upon the posterior limb of the right lateral ventricle, which is unchanged. No new or enlarging acute intracranial hemorrhage. 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 Mild scattered supratentorial white matter hypodensities. Lacunar type infarct within the right basal ganglia. Mild generalized cerebral volume loss with concordant prominence of the ventricles and subarachnoid spaces. Prior ocular lens replacements. The visualized paranasal sinuses and mastoids are unremarkable. No acute calvarial fracture or scalp hematoma. CT/Brain/Head without Contrast IMPRESSION: 1. No new or enlarging acute intracranial finding. 2. Interval improvement in the right falx/tentorial subdural hematoma as descri bed. 3. Additional chronic findings as described. Reading Location: [id number]
[2025-01-15 18:00] VITALS: BP 124/67; PULSE 86; RESP 17; TEMP 36.9; O2SAT 97
[2025-01-15 20:18] VITALS: BP 110/72; PULSE 96; RESP 20; TEMP 36.3; O2SAT 96
[2025-01-15 20:33] VITALS: BP 110/72; PULSE 96
[2025-01-15] MEDS: Metoprolol(XL)Succ 25 MG Tablet PO (20:33)
[2025-01-16] VITALS (8 sets, daily range): BP systolic 106–126; BP diastolic 45–79; PULSE 92–104; RESP 16; TEMP 36.6–36.7; O2SAT 93–99
[2025-01-16] MEDS: Magnesium Chloride 64 MG Delay Rel.Tablet 128 MG PO (08:13)
[2025-01-16] MEDS: Metoprolol(XL)Succ 50 MG Tablet PO (08:13)
[2025-01-16] MEDS: Saliva Substitute 237 ML BOTTLE 15 ML MUCOUS MEM ×4 (08:13→20:20)
[2025-01-16] MEDS: Senna/Docusate Sodium 1 Tablet 2 TABLET PO (08:13)
--- NOTE | 2025-01-16 12:24 | EX.DISCHREH ---
Providers Date of Admission: 12/30/24 Date of Discharge: 01/17/25 Primary Care Physician: Dr. Briseida Vergara MD Consultations 01/09/25 11:11 Consult: Pain Management Routine Consulting Provider: Nohelia Aleman Reason for Consult: torticollis EMERGENT Consult: No MD Notified: Yes Date Notified: 01/09/25 Time Notified: 11:11 Method of Notification: Verbal Reason For Visit: SUBDURAL HEMATOMA Diagnosis Discharge Diagnosis (1) Debility: Status: Acute Code(s): R53.81 - Other malaise (2) Intracerebral bleed due to trauma: Status: Acute Code(s): S06.36AA - Traumatic hemorrhage of cerebrum, unspecified, with loss of consciousness status unknown, initial encounter Qualifiers: Encounter type: subsequent encounter Laterality: unspecified laterality Loss of consciousness presence/duration: without LOC Qualified Code(s): S06.360D - Traumatic hemorrhage of cerebrum, unspecified, without loss of consciousness, subsequent encounter Plan: CT head on 01/15/25 shows Interval improvement in the size of the subdural hematoma centered along the R falx and tentorium measuring 5 X 1.6 cm, down from 5 X 2.1 cm at presentation to the ED on 12/23/24. (3) Ischemic cerebrovascular accident (CVA): Status: Acute Code(s): I63.9 - Cerebral infarction, unspecified Plan: No initially present at the time of the ICH. CTB on 01/15/25 shows chronic moderate-sized ischemic infarct within the bilateral parietal occipital watershed areas, left greater than right. Mild scattered supratentorial white matter hypodensities and a lacunar infarct in the right basal ganglia. (4) Mild cognitive impairment: Status: Acute Code(s): G31.84 - Mild cognitive impairment of uncertain or unknown etiology (5) Acute left-sided weakness: Status: Acute Code(s): R53.1 - Weakness Plan: Also with some weakness in the RLE (6) Paresthesias: Status: Acute Code(s): R20.2 - Paresthesia of skin Plan: Left face, arm and leg. Has chronic neuropathy in his feet. (7) Depression: Status: Chronic Code(s): F32.A - Depression, unspecified Qualifiers: Depression Type: reactive depression Qualified Code(s): F32.9 - Major depressive disorder, single episode, unspecified Plan: Depression is long standing but, he never sought treatment. Started on Remeron 15 mg at admission to rehab and increased to 22.5 mg on 01/13/25. Would benefit from psychotherapy. He is eating better and not refusing meals any longer. (8) Urinary incontinence: Status: Chronic Code(s): R32 - Unspecified urinary incontinence Qualifiers: Urinary Incontinence type: urinary incontinence without sensory awareness Qualified Code(s): N39.42 - Incontinence without sensory awareness Plan: Incontinent of urine most of the time. Will not even alert nursing when he has been incontinent. The week prior to DC he had been continent a few times but, has been regressing the last 5 -7 days prior to discharge. He denies dysuria and has had no fevers and no leukocytosis. We check a UA prior to DC and it was negative for infection. UA showed no evidence of UTI. (9) Fecal incontinence: Status: Chronic Code(s): R15.9 - Full incontinence of feces Qualifiers: Fecal incontinence type: unspecified Qualified Code(s): R15.9 - Full incontinence of feces (10) Essential (primary) hypertension: Status: Chronic Code(s): I10 - Essential (primary) hypertension Plan: Blood pressure was low early in the week of discharge so we have been decreasing the antihypertensives. He is only on Metoprolol at the time of discharged from rehab and this is needed to control the HR with AF. With discontinuation of Lisinopril the BP improved and is within goal at the time of DC from rehab. (11) Paroxysmal atrial fibrillation: Status: Chronic Code(s): I48.0 - Paroxysmal atrial fibrillation Plan: Xarelto has been on hold since the [facility]. He has follow up with Dr. Do scheduled 01/28/25 and will defer to Dr. Do to restart chronic anticoagulation. The SDH has shrunk from 5x2.1 cm to 5X1.6 cm at DC from rehab. No active bleeding on CTB done 01/15/25. (12) Chronic anticoagulation: Status: Chronic Code(s): Z79.01 - half-way (current) use of anticoagulants Plan: Will defer to neurosurgery to determine when he can restart anticoagulation. He is going to follow up with Dr. Do. (13) Peripheral neuropathy: Status: Chronic Code(s): G62.9 - Polyneuropathy, unspecified Qualifiers: Peripheral neuropathy type: polyneuropathy, other Qualified Code(s): G62.89 - Other specified polyneuropathies Plan: Not c/o pain in the legs at the time of DC. He started to c/o pain in the L arm and the left leg while on rehab and this was attributed to central neuropathic pain related to the intracerebral bleed. He was started on Gabapentin 100 mg BID and this has been effective in relieving that pain. (14) PAD (peripheral artery disease): Status: Chronic Code(s): I73.9 - Peripheral vascular disease, unspecified Plan: F/U with vascular as needed. (15) Heme positive stool: Status: Acute Code(s): R19.5 - Other fecal abnormalities Plan: HGB is WNL at 13.2. He has no nausea or abd pain. He was started on a PPI because he was having some N/V early in the admission and he no longer has N/V/heartburn or epigastric pain. (16) Hyponatremia: Status: Acute Code(s): E87.1 - Hypo-osmolality and hyponatremia Plan: W/U consistent with SIADH. Placed on salt tabs and fluid restriction of 1400 cc's daily. Never even comes close to taking 1400 cc's in 24 H. We have been encouraging him to increase his fluid intake to no avail. Sodium on 01/15/25 was 134. 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 twice daily. (18) Torticollis, acquired: Status: Resolved Code(s): M43.6 - Torticollis Plan: Due to hypertonicity of muscles in the left neck and upper thoracic area related to SDH/ischemic CVA's. He had a Botox injection from Dr. Aleman and this has improved significantly. He no longer has torticollis or lateroCollis. Has not had a Muscle relaxer since 01/04/25. (19) Laterocollis: Status: Resolved Code(s): G24.3 - Spasmodic torticollis (20) Acute cystitis with hematuria: Status: Resolved Code(s): N30.01 - Acute cystitis with hematuria Plan: Present at admission to rehab. Due to Enterococcus faecalis. It was sensitive to Macrobid and he was taking Macrobid but when he developed a left basilar pneumonia he was transitioned to Levaquin. He developed acute delirium after a few days on intravenous Levaquin and he was transition from Levaquin to Augmentin to finish appropriate course of treatment for left lower lobe pneumonia and cystitis. (21) Hospital-acquired pneumonia: Status: Acute Code(s): J18.9 - Pneumonia, unspecified organism; Y95 - Nosocomial condition Plan: Resolved with Levaquin and then transition to Augmentin due to acute delirium on Levaquin. (22) Sleep apnea: Status: Chronic Code(s): G47.30 - Sleep apnea, unspecified Qualifiers: Sleep apnea type: obstructive Qualified Code(s): G47.33 - Obstructive sleep apnea (adult) (pediatric) Plan: This was diagnosed many years ago and pt has not been compliant with CPAP and does not wear oxygen when sleeping. He had an overnight trending pulse ox while on rehab and he had only 1 and 1/2 minutes when O2 sat was 89 or less. There were no desaturation events > 60 sec. Does not need oxygen supplementation at night. (23) Acute delirium: Status: Resolved Code(s): R41.0 - Disorientation, unspecified Plan: due to Levaquin. Resolved with discontinuation of Levaquin. (24) Weight loss, non-intentional: Status: Acute Code(s): R63.4 - Abnormal weight loss Plan: Lost 11 lbs on rehab despite being prescribed supplements by the test boring crew chief. Would not eat or drink.......said he had no appetite. Eating better at DC and not refusing meals any longer. (25) Decubitus ulcer: Status: Resolved Code(s): L89.90 - Pressure ulcer of unspecified site, unspecified stage Qualifiers: Laterality: left Pressure injury location: heel Pressure injury stage: stage 1 Qualified Code(s): L89.621 - Pressure ulcer of left heel, stage 1 Plan: Stage 1 left heel. Placed in heel protector and it is no longer boggy to palpation at DC from rehab. (26) Subluxation of left shoulder joint: Status: Acute Code(s): S43.002A - Unspecified subluxation of left shoulder joint, initial encounter Qualifiers: Encounter type: initial encounter Qualified Code(s): S43.002A - Unspecified subluxation of left shoulder joint, initial encounter Plan: Due to CVA/Left hemiparesis. Placed in a rotator cuff sling prior to DC from rehab. (27) Ascending aorta dilation: Status: Chronic Code(s): I77.810 - Thoracic aortic ectasia Plan: found incidentally on a CTA of the H&N. Can be followed as an OP. (28) Pulmonary nodules: Status: Chronic Code(s): R91.8 - Other nonspecific abnormal finding of lung field Plan: Multiple nodules. The largest measures 8 mm. Defer follow up OP. Plan 1. DC to [facility] on 01/17/25. 2. Will need follow up with neurology, cardiology and neurosurgery. At the time of DC from rehab he is still requiring a Jaleel to move him from the bed to a WC. Can not maintain an upright posture while sitting in the WC and would not be safe. May need to defer follow up until he is able to maintain posture while sitting in the WC. 3. Family and patient are interested in a palliative care consult. Medications at Discharge Home Medications metoprolol succinate 50 mg tablet,extended release 24 hr 50 mg PO DAILY heart rate 12/30/24 Petrolatum 33% [Eucerin Eqivalent] 1 applic topical QHS #1 oz 01/16/25 acetaminophen 500 mg tablet 1,000 mg (2 x 500 mg) PO Q8 PRN pain/fever #1 TAB 01/16/25 bisacodyl 10 mg rectal suppository 10 mg [place] X1 PRN Constipation #0 ea 01/16/25 gabapentin 100 mg capsule 100 mg PO 0600,1800 #0 caps 01/16/25 magnesium chloride 64 mg (magnesium chloride) tablet,delayed release 128 mg (2 x 64 mg) PO DAILY #0 tabs 01/16/25 magnesium hydroxide 400 mg/5 mL oral suspension 30 ml PO X1 PRN Constipation #0 mL 01/16/25 menthol 0.44 %-zinc oxide 20.6 % topical ointment (Calmoseptine) 1 applic topical BID #0 grams 01/16/25 metoprolol succinate 25 mg tablet,extended release 24 hr 25 mg PO QHS #0 tabs 01/16/25 mirtazapine 15 mg tablet 22.5 mg (1.5 x 15 mg) PO 2000 #1 TAB 01/16/25 oxycodone 5 mg tablet 5 mg PO Q6H PRN pain 4-10 1 week #10 tabs 01/16/25 pantoprazole 40 mg tablet,delayed release 40 mg PO DAILY #0 tabs 01/16/25 saliva substitute combo no.9 (Biotene Dry Mouth Oral Rinse mouthwash) 15 ml mucous membrane 4X/DAY #0 mL 01/16/25 sennosides 8.6 mg-docusate sodium 50 mg tablet (Stimulant Laxative Plus) 2 tab PO BID #0 tabs 01/16/25 sodium chloride 1,000 mg soluble tablet 1,000 mg PO BID #0 tabs 01/16/25 rivaroxaban 20 mg tablet 20 mg PO QPM #30 tabs 01/17/25 Hospital Course Operations None Procedures None and Electroencephalogram (Had EEG's at [facility] and they were negative for seizures. ) Summary of Care Provided Minutes Spent on Discharge: 48 Hospital Course: ERIN YAÑEZ, is a 84 YO M with a PMH of AF, chronic anticoagulation with Xarelto, BPH, degenerative disc disease, diverticulosis, tobacco dependence in remission, CHRISTOPHER (diagnosed many years ago and non-compliant with CPAP), hiatal hernia, hypertension, and history of melanoma who presented to the ED at [facility] on 12/23/2024 complaining of tingling and weakness on his left side. He related that he had a fall (he struck his head and had a scalp abrasion) on 12/20/2024 and was doing fine until he woke up at 2 AM on the with tingling and numbness on the L side.......it increased in the time it took him to get to the ED by squad. Noncontrast brain CT showed a subdural hematoma on the right measuring 0.5 cm in depth in the temporal region. There was hemorrhage extending along the falx and tentorium on the right with a masslike component posteriorly measuring 5 cm x 2.1 cm. There was a midline shift at the anterior aspect of 0.4 cm towards the left. CTA of the head and neck showed an ascending aorta which was dilated to 4.1 cm. There was no significant stenosis or occlusion identified in the carotid or vertebral system. NIHSS was 2 for weakness in the left upper extremity and left lower extremity. He was given Kcentra in the emergency department. He also received labetalol for hypertension and Keppra for seizure prophylaxis. He was transferred to [facility] for intracerebral bleed. Neurosurgery was consulted and family declined any surgical intervention. A 20 minute EEG was negative for seizure activity. Continuous EEG also showed no seizure activity. It did show right cerebral hemisphere dysfunction. CT head was repeated at [facility] and it showed a slight increase in size of extensive acute right parafalcine subdural hemorrhage measuring up to 19 mm in thickness. There was a slight increase in the subdural hemorrhage along the right cerebral convexity measuring 6 mm, up from 4 mm at [facility]. There was mass effect on the right cerebral convexity with approximately 4 mm of midline shift to the left. This was unchanged. CT brain was repeated on 12/24/2024 and showed a slight decreased size of the parasagittal component of the right subdural hemorrhage with minimal midline shift. There was a stable appearing small left cerebral subdural hemorrhage and right cerebellar subdural hemorrhage. MRI of the brain on December 26 showed no definite acute CVA. There was increased FLAIR signal in the medial right frontal and parietal cortex adjacent to the parafalcine subdural and subarachnoid hemorrhage suspicious for cortical edema. There was a stable appearance of multiple extra-axial hemorrhages along the medial right greater than left falx, overlying the right convexity as well as in the posterior fossa and along the tentorium. He did not require any surgical intervention while at [facility]. He was transferred to the acute inpt rehab unit at [facility] on 12/30/24 for 3 hours of therapy daily to restore function/independence at or near his level prior to the fall on 12/20/24. Ton had a UTI at admission to rehab. He was empirically started on Macrobid. The urine culture grew Enterococcus faecalis and it was sensitive to Macrobid. He developed a cough and CXR showed a Left basilar PNA. He was transition from Macrobid to Levaquin. After a few doses of the Levaquin he had acute delirium and Levaquin was discontinued and he was started on Augmentin which he tolerated well. The delirium resolved with discontinuation of Levaquin. He developed pain in the Left arm and leg and was started on gabapentin 100 mg twice daily for suspected central neuropathic pain. This was effective in relieving that pain. He has chronic pain in his feet secondary to peripheral neuropathy and he is no longer complaining of this since the gabapentin was started. He developed torticollis and laterocollis and rather than starting scheduled muscle relaxers which could potentially increase somnolence a consult was placed for pain management. Dr. Aleman did Botox injections and this was very effective. He is no longer c/o neck pain. The torticollis has resolved. He does still have some L shoulder pain and I think this is due to subluxation of the left shoulder due to profound weakness of the left shoulder girdle. On 01/16/2025 a rotator cuff sling was ordered to prevent subluxation of the joint. 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 He was started on salt tablets 1 g p.o. twice daily and fluid restriction to 1200 cc/day. The sodium came up to 139. Fluid restriction was increased to 1400 daily but, most days his intake is less than 1,000 despite encouragement to drink the 1400 cc/daily. Sodium on 01/15/25 was 134. BUN is stable at 28 and his creatinine is 0.73. The BUN/creatinine ratio is 38.2. He denies lightheadedness. Fluid intake on 01/15/2025 was 1120 cc. At presentation to acute rehab Ton was quite sleepy and difficult to arouse. He slept most of the day and through the night. He would not make eye contact with me. His appetite was very poor and he refused many meals. He was seen by the test boring crew chief and supplements were ordered for him but, he would not eat. He admitted to being depressed and stated this had been going on for some time. He had never been on an antidepressant and had never had psychotherapy/counselling. He was started on Remeron 15 mg QHS. This was later increased to 22.5 mg Q HS. Prior to DC he is eating better and has not recently been refusing meals. He has been more talkative. He tells me now that he wants to get better and wants to know when he will be able to walk. Getting him to participate with the therapists has been a constant challenge. We are still having to use the Jaleel lift to get him out of bed and into a WC. When he is in the WC he is not able to sit erect and slumps forward and to the left. He has never been able to stand. He is not able to sit on a shower chair due to lack of truncal control. He has been incontinent of urine and stool and was not able to notify the nurses when he had been incontinent. This improved to the point where he was sometimes able to use the urinal and sometimes able to tell nursing he needed to have a BM. He was able to partially dress his upper body but starting on 01/15/25 he was dependent for this again. He is able to feed himself but, he prefers his feed him. On 01/16 he did tell the OT in the AM when doing his personal care that he had 2 to have a BM X2 times. At times his voice projects well and he is not slurring and at other times he is very soft spoken and difficult to understand. At times he is very alert and at others he will close his eyes and not make eye contact with me. He sleeps a good portion of the day. Does better in the evenings when he has visitors. The last week of admission he c/o an intermittent GARCIA. We ordered a NC CTB and it showed a decrease in the size of the hyperdensity centered along the right falx and tentorium. At presentation to the emergency room initially the subdural hematoma measured 5 cm x 2.1 cm. It now measures 5 cm x 1.6 cm. There was no active bleeding noted. There is mild associated mass effect upon the posterior limb of the right lateral ventricle which was unchanged. The CT now showed chronic moderate-sized ischemic infarcts within the bilateral parietal?occipital watershed areas, left greater than right. There was mild scattered supratentorial white matter hypodensities and a lacunar type infarct within the right basal ganglia. It is unknown when the ischemic strokes occurred. On the MRI done on December 26 at [facility] There was no definite acute infarct however there was some restricted diffusion along the medial right frontal and parietal lobes interdigitating along the sulci. The ischemic strokes could be related to the rapid reversal of Xarelto with KCENTRA or to emboli from AF. He has been off AC since the ICH was identified. Ton was on Lisinopril 20 mg daily and metoprolol XL 50 mg daily at admission to rehab. The systolic and diastolic were elevated above goal and heart rate was uncontrolled. A second dose of metoprolol XL 25 mg was added to the drug regimen at that time. BP and HR were well controlled however he has had poor oral intake and the last week he was on rehab the BP was low. Lisinopril was discontinued. At the time I am dictating this discharge summary his blood pressure is 126/79 with a heart rate of 92. He is on metoprolol XL 50 mg every morning and 25 mg nightly. He denies lightheadedness. At the time of discharge from rehab he is supervision/set up for eating. He requires minimal assistance with grooming. He is max assist for bathing and total assist for upper body dressing and lower body dressing. He also requires total assistance for toileting and toilet transfer. He is not able to shower because he has no truncal control and is not safe to sit on a shower chair. He is able to sit on the edge of the therapy mat at mod/max assist x 1-2 for up to 15 minutes working on reaching and gaining postural awareness as well as weightbearing in the left upper extremity/elbow. He requires a Jaleel lift for all transfers. He is nonambulatory and cannot stand. Ton was transferred to [facility] on 01/17/25 for additional therapy. The depression seems to be finally improving and he is participating more with the therapists when they are working with him. He was more alert during the day on 01/16 and more talkative. He has a follow up appt with Dr. Do from neurosurgery on 01/28/[address] scan of the brain was ordered by Dr. Do for that day. I spoke with Dr. Do on 01/17/25 and discussed the results of the CT head done on 01/15. He is OK with restarting Anticoagulation. Xarelto 20 mg daily ordered. No loading doses due to recent traumatic intracerebral hemorrhage. We will send the CT images to [facility] so he can view the CTB. Ton has an appt with Dr. Do on 01/28/[address] and [address] a [address] head that morning. He will need to be transported by cot because he is not able at this time to sit upright in a WC and maintain his posture. Will get a CBC, CMP and lipid panel after DC to [facility]. The ischemic CVA's are most likely related to AF. He had an intracerebral bleed and had heme + stool early in admission to rehab. No ASA indicated for now. HGB has been stable. Would consider a statin if the LDL is not 70 or less. Physical Exam Const General Appearance: cooperative, ill appearing and other appears stated age HEENT HEENT Narrative: Very dry mucous membranes. No evidence of thrush. Kiana on the hard palate. Eyes PERRL, EOMs intact bilaterally, conjunctivae normal and no scleral icterus Eyes Narrative: No discharge from the eyes. No visual field cuts. Denies any change in his vision. General Eye: normal light reflex Neck supple, No nodes and no carotid bruits Neck Narrative: Left trapezius spasms have resolved. Torticollis and laterocollis resolved with Botox injections by pain management. Head is now on the midline and he denies neck pain. General: trachea midline Chest Chest: symmetrical chest wall rise Resp normal respiratory effort Resp Narrative: Good effort today. No coughing with deep breath. Not tachypneic. No conversational dyspnea. Lungs are CTA. Effort and Inspection: Negative for labored, grunting or actively coughing Cardio no murmurs, no rub and no gallops Cardio Narrative: Irregular irregular rhythm with controlled ventricular response. Known history of atrial fibrillation. Denies chest pain and also denies palpitations and lightheadedness. GI normal to inspection, nondistended, normoactive bowel sounds, soft to palpation and non-tender GI Narrative: No guarding with palpation. Not constipated. Still incontinent of stool. no CVA tenderness Narrative: Denies dysuria. Continues to have urinary incontinence. Back/Spine no CVA tenderness Back/Spine Narrative: Denies pain in his legs. pain in the feet due to peripheral neuropathy has resolved with addition of Gabapentin to the drug regimen. Extremity no pedal edema Extremity Narrative: Superficial varicosities in both lower extremities. Some pitting edema of the left ankle. No calf pain. Denies pain in his feet. The left heel is no longer boggy and he had no pain with palpation today. There is no increased redness of the heel. Heel protectors in place on both feet. No openings in the skin. Very diminished pedal pulses in the left foot but, the foot is warm. He had PVR's in 2022 and the MARGE on the R was 1.1 and on the left it was decreased at 0.74 consistent with moderate arterial insufficiency. He started to have Left shoulder pain and this was felt to be due to subluxation of the L shoulder due to severe weakness of the L shoulder girdle. He is now in a rotator cuff sling. Skin General Skin Exam: Negative for jaundice Rashes: no rashes Hair: general thinning Neuro oriented x3 and CN's II-XII intact bilaterally Neuro Narrative: Tongue protrudes on the midline. Intact sensation in the face. Has some Left shoulder shrug now and has some tone in the L biceps. He is able to lift the L forearm off the bed at the elbow but, if I lift and extend the left arm it falls immediately to the bed. 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 He can internally and externally rotate the Left forearm from the elbow distally. Has some tone in the left triceps as well now. Has decreased sensation in the LE's distally in a stocking distribution and he has known hx of peripheral neuropathy. He has NO movement in the left LE. He is unable to lift the RLE off the bed but, he can move it side to side and he has some weak dorsiflexion and plantar flexion of the R foot. No sensory loss proximal to the knees. No extinction. Can not test the side for ataxia due to severe weakness. Able to read all the sentences on the NIHSS and identify all the pictures. No visual side neglect. He does not speak up and slurs some but, when you ask him to speak up and enunciate this improves. Able to follow commands. Unable to maintain posture when his head is elevated due to poor truncal support. Leans heavily to the left. Meningeal Signs: no meningeal signs and nuccal rigidity Psych Psych Narrative: He ate 75-100% of his last 4 meals. Sleeping well at night. More alert during the day and more interactive. Not outwardly anxious. Affect is still flat. Currently on Remeron 22.5 mg (Remeron was started on 12/31/24. No agitation and no sundowning. Appearance: grossly normal and appropriate Activity / Motor Behavior: psychomotor slowing and other Keeps his eyes closed most of the time I am talking with him unless I ask him to look at me. Speech: slow and soft Mood & Affect: depressed Weight / BMI Weight Weight: 191 lb 2.252 oz Body Mass Index (BMI) 23.8 ABG / Lab / Microbiology Data 01/15/25 05:29 01/15/25 05:29 Microbiology: Microbiology 12/31/24 15:00 Urine Catheter - Catheter Urine Culture - Final Enterococcus faecalis 01/01/25 06:58 Stool Stool Occult Blood (AMOS) - Final Occult Blood Positive Radiography Diagnostic Testing: Radiology Impression Brain CT 01/15/25 12:32 IMPRESSION: 1. No new or enlarging acute intracranial finding. 2. Interval improvement in the right falx/tentorial subdural hematoma as described. 3. Additional chronic findings as described. Reading Location: [id number] Indicators for Scoring Admitted with or Primary Diagnosis of CVA/Stroke: No (multiple SDH's and SAH with foacl neurologic deficits. ) Hx of CVA/Stroke: No Modified Adele Score MRS Score at time of Evaluation: 5-Severe disability NIHSS NIHSS 1a. Level of Consciousness: 0 - Alert; keenly responsive 1b. LOC Questions: 0 - Answers BOTH questions correctly 1c. LOC Commands: 0 - Performs BOTH tasks correctly 2. Best Gaze: 0 - Normal 3. Visual: 0 - No visual loss 4. Facial Palsy: 0 - Normal symmetrical movements 5a. Left Arm: 2 - Some effort against gravity; (He can lift the forearm off the bed at the elbow. If I lift his arm off the bed it falls immediately to the bed. ) 5b. Right Arm: 0 - No drift; arm holds 90 (or 45) degrees for full 10 seconds 6a. Left Le - No movement 6b. Right Le - No effort against gravity; leg falls to bed immediately (He has some side to side movement on the bed. He has some weak plantar and dorsiflexion of the R foot. ) 7. Limb Ataxia: 0 - Absent (unable to test the left side due to weakness. No ataxia on the R side. ) 8. Sensory: 1 - [id number] sensory loss; (He has decreased sensation in both LE's distal to the knee which is chronic and he has been diagnosed with peripheral neuropathy. ) 9. Best Language: 0 - No aphasia; normal 10. Dysarthria: 1 = Maxy-pt-yprouhry dysarthria; 11. Extinction and Inattention: 0 - No abnormality Total: 11 D/C Instructions Diet Diet Order/Speech Therapy: INPATIENT Hospital Diet / Speech Therapy Order(s) 12/30/24 18:38 Diet: Cardiac - Heart Healthy Type of Dietary Supplement:: Ensure Plus High Protein Fluid restriction:: 1400 mL Diet Comments: 240ml nuha EPHP with lunch// Chocolate ensure milkshake with dinner Discharge order: Continue INPATIENT Hospital Diet / Speech Therapy Orders: Yes DC O2, CPAP, BIPAP Needs RN Home O2 qualification: No Data to Display PSN CPAP & BiPAP: BiPAP & CPAP Settings per PSN Fraction of Inspired Oxygen ( 94 01/05/25 22:00 FIO2) Home O2 Discharge instructions: No Please Follow Up With: Dr. 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 Has had ischemic infarcts.....unknown when this happened. Primary dx for rehab is intracerebral hemorrhage. ) and Ischemic CVA CVA Therapy Assessed for PT,OT and/or ST?: Yes Ischemic Stroke Antithrombotic order at d/c?: No Reason antithrombotic not ordered: Medical Contraindication (CVA more likely than not due to AF. Had recent traumatic ICH and he has had heme + stool. He is going to be discharged on Xarelto. ) Dx of Atrial fib/flutter?: Yes Anticoagulant at discharge?: Yes Statin Dosing Therapy Reference: STATIN DOSE THERAPY REFERENCE: * Patients > 75 years receive moderate or high dose statin therapy. * Patients 75 years or YOUNGER should receive HIGH intensity statin dose unless contraindicated. You will be required to document reason for non-treatment if statin daily dose does not meet guidelines. HIGH DOSE STATIN THERAPY DAILY Atorvastatin > than or = to 40 mg Rosuvastatin > than or = to 20 mg Amlodipine + Atorvastatin > than or = to 2.5/40 mg Ezetimibe + Simvastatin 10/80 mg Simvastatin 80mg Statins at discharge?: No Reason Statin not ordered: Treatment not Indicated (No recent lipid panel. Orders placed for him to have a Lipid panel and a liver panel at [facility]. If the LDL is > 70 would add a statin to the current drug regimen. ) Primary Dx Acute Ischemic CVA?: No IV thrombolytic ordered during stay?: No Discharge Plan Admission Admit Date/Time: 12/30/24 18:14 Primary Reason for Your Visit: Debility due to intracerebral bleed. Attending Provider: Savanna Kelly Primary Care Provider: Briseida Vergara Consulting Providers: Nohelia Aleman Instructions Additional Instructions / Restrictions: 1. He will need to follow up with Mateo Crane NP from [facility] at some point. currently not able to sit in a WC and maintain and upright posture. 2. He has an appt with Dr. Do (neurosurgery) scheduled. Will defer restarting Xarelto to Dr. Do. 3. He should also follow up with neurology as an OP. 4. He has subluxation/pain of the Left shoulder and was placed in a rotator cuff sling on 01/16/25 to help with this. Subluxation is due to Severe weakness of the left arm........can only really flex his fingers weakly at the time of DC from rehab. 5. He is incontinent of stool and urine. 6. He had a stage I decub of the left heel which has resolved. 7. He is severely depressed. Now up to 22.5 mg of Remeron at . Appetite has improved and he rarely refuses a meal now. Has lost 11 lbs form 12/30/24 to 01/14/25. 8. CT scan on 01/15/25 shows the subdural hematoma is decreasing in size and there are no new or enlarging acute intracranial findings. Unfortunately the CT scan shows chronic moderate-sized ischemic infarct within the bilateral parietal?occipital watershed areas, left greater than right. There are mild scattered supratentorial white matter hypodensities and a lacunar type infarct within the right basal ganglia. MRI on 12/26/24 at previous hospital did not clearly show any ischemic infarcts. These may have occurred following [facility] and withholding anticoagulation due to the bleeding. This helps to explain why he really has not made much progress on rehab. 9. BP has recently been on the low side and Lisinopril was discontinued on . BP at AR is better and within goal of < 130/80. 10. He had acute cystitis and LLL PNA while on rehab. He had Delirium with Levaquin and it resolved with discontinuation of the drug. 11. Spoke with Dr. Do on 01/17/25 and we are going to restart anticoagulation with Xarelto 20 mg daily.......no loading doses due to hx of ICH. He has an appt with Dr. Do on 01/28/25 and will have a repeat CT brain that morning. He will need to be transported on a cot because he is unable to maintina an upright posture sitting in a WC.....he slumps forward and to the left. Discharge Orders/Prescriptions Prescriptions: New bisacodyl 10 mg Suppository 10 mg KY X1 PRN (Reason: Constipation) Qty: 0 0RF magnesium hydroxide 400 mg/5 mL Suspension 30 ml PO X1 PRN (Reason: Constipation) Qty: 0 0RF mirtazapine 15 mg Tablet 22.5 mg PO 2000 Qty: 1 0RF gabapentin 100 mg Capsule 100 mg PO 0600,1800 Qty: 0 0RF metoprolol succinate 25 mg Tablet Extended Release 24 Hr 25 mg PO QHS Qty: 0 0RF magnesium chloride 64 mg Tablet,Delayed Release (Dr/Ec) 128 mg PO DAILY Qty: 0 0RF menthol-zinc oxide [Calmoseptine] 0.44-20.6 % Ointment 1 applic topical BID Qty: 0 0RF Protocol: *Topical Application Instructions APPLICATION INSTRUCTIONS: Coccyx sennosides-docusate sodium [Stimulant Laxative Plus] 8.6-50 mg Tablet 2 tab PO BID Qty: 0 0RF pantoprazole 40 mg Tablet,Delayed Release (Dr/Ec) 40 mg PO DAILY Qty: 0 0RF Biotene Dry Mouth Oral Rinse Mouthwash 15 ml mucous membrane 4X/DAY Qty: 0 0RF Petrolatum 33% [Eucerin Eqivalent] 1 applic topical QHS Qty: 1 0RF Rx Instructions: apply to the distal LE's from the knee to the toes. sodium chloride 1,000 mg Tablet,Soluble 1,000 mg PO BID Qty: 0 0RF rivaroxaban 20 mg tablet 20 mg PO QPM Qty: 30 0RF Rx Instructions: must administer with evening meal Continued metoprolol succinate 50 mg tablet extended release 24 hr 50 mg PO DAILY Changed acetaminophen 500 mg tablet 1,000 mg PO Q8 PRN (Reason: pain/fever) Qty: 1 0RF oxycodone 5 mg tablet 5 mg PO Q6H PRN (Reason: pain 4-10) 7 Days Qty: 10 0RF Discontinued lisinopril 20 mg tablet 20 mg PO DAILY Qty: 90 3RF cyclobenzaprine 5 mg tablet 5 mg PO TID PRN (Reason: muscle spasm) Mag Glycinate 100 mg tablet 200 mg PO DAILY Referrals / Follow Up: [facility] Mcke[facility] [Other] - 01/28/25 11:[address] Scan [Other] - 01/28/25 10:45 am Mateo Crane NP, [employer] [Med Staff - Adv Practice Prof] - 02/11/25 10:00 am Disposition Disposition (needs filled in before D/C Order can be placed): [facility] Facility Charges/Coding Visit Charges Inpatient E&M: 39660 Disch Hosp >30min
--- NOTE | 2025-01-16 14:47 | PCM.PN.BLA ---
Progress Note Prior to meeting with the patient, Ton, his and son at bedside, I did have a discussion with Dr. Kelly about the appropriateness of an outpatient palliative care referral. She felt that it would warrant a conversation with the pt and his family and a family meeting was arranged. Upon meeting with Ton, his , Selene and their son, Dr. Kelly did discuss the patients current comorbidities as well as his most recent CT scan showing multiple areas of infarcts to the brain as well as his progress thus far. She then introduced the concept of palliative care in which they were open to further discussions. Ton states that his goals of care is to return home. He understands that he may require assistive devices life long but ultimately wants to go home. He is being discharged tomorrow to SNF for continued rehab. Pt has been receiving symptom management for central poststroke pain which is being treated with low dose Gabapentin 100mg PO bid. This appears to be controlling his pain, at this time. I explained the role outpatient palliative care could have, in his case, with symptom management for his multiple symptoms he is experiencing with depression, neuropathic pain and constipation. Ton does have a Palliative Performance scale score of 50% and a Palliative Performance Index (PPI) of 3.5. The PPI has significantly improved from 12.5 at admission, although he continues to receive Remeron at night for his depressive symptoms and appetite stimulation qualities. I do feel that the pt and his family would greatly benefit from outpatient palliative care services. The pt and family are requesting a referral to outpatient palliative care with no preference for agency. Case vee devine family and pt request. All questions answered. I did see this patient with Dr. Kelly and as a adjunct to her conversation during the family meeting Physical Exam Narrative Pt was not assessed formally and only a discussion took place Const oriented x3 General Appearance: cooperative, comfortable and well kempt Orientation / Consciousness: awake, oriented to person, oriented to place and oriented to time Nutritional Appearance: thin Psych Appearance: appropriate Attitude: withdrawn Mood & Affect: flat affect Thought Process: normal thought process Thought Content: normal thought content Memory / Cognition: other alert to person, place and time.
[2025-01-16] MEDS: Metoprolol(XL)Succ 25 MG Tablet PO (20:19)
[2025-01-17 05:55] VITALS: BMI 23.0
[2025-01-17 06:00] VITALS: BP 116/71; PULSE 100; RESP 14; TEMP 36.6; O2SAT 96
[2025-01-17 08:02] VITALS: PULSE 100
[2025-01-17] MEDS: Metoprolol(XL)Succ 50 MG Tablet PO (08:02)
[2025-01-17] MEDS: Magnesium Chloride 64 MG Delay Rel.Tablet 128 MG PO (08:02)
[2025-01-17] MEDS: Saliva Substitute 237 ML BOTTLE 15 ML MUCOUS MEM (08:03)
[2025-01-17] MEDS: Senna/Docusate Sodium 1 Tablet 2 TABLET PO (08:03)
--- NOTE | 2025-01-17 13:42 | NURSING ---
[facility] report called to Cecy
[2025-01-17 13:43] VITALS: BP 116/71; PULSE 100; RESP 14; TEMP 36.6; O2SAT 96
== END 2025-01-17 13:30 | disposition skilled nursing facility (03) | DRG 949 ==
PROVIDERS: Admitting Provider Internal Medicine; PCP Family Medicine; Visit Provider Internal Medicine
DX: S06.36AD Traumatic hemorrhage of cerebrum, unspecified, with loss of consciousness status unknown, subsequent encounter (principal); J18.9 Pneumonia, unspecified organism; I63.9 Cerebral infarction, unspecified; E22.2 Syndrome of inappropriate secretion of antidiuretic hormone; I69.854 Hemiplegia and hemiparesis following other cerebrovascular disease affecting left non-dominant side; N30.01 Acute cystitis with hematuria; G62.89 Other specified polyneuropathies; B95.2 Enterococcus as the cause of diseases classified elsewhere; L89.621 Pressure ulcer of left heel, stage 1; I48.0 Paroxysmal atrial fibrillation; I73.9 Peripheral vascular disease, unspecified; I10 Essential (primary) hypertension; F32.9 Major depressive disorder, single episode, unspecified; R63.4 Abnormal weight loss; I87.2 Venous insufficiency (chronic) (peripheral); M43.6 Torticollis; I77.810 Thoracic aortic ectasia; G47.33 Obstructive sleep apnea (adult) (pediatric); W19.XXXD Unspecified fall, subsequent encounter; F09 Unspecified mental disorder due to known physiological condition; I69.898 Other sequelae of other cerebrovascular disease; S06.9XAS Unspecified intracranial injury with loss of consciousness status unknown, sequela; M79.2 Neuralgia and neuritis, unspecified; S43.002D Unspecified subluxation of left shoulder joint, subsequent encounter; Z87.891 Personal history of nicotine dependence; G89.29 Other chronic pain; N39.42 Incontinence without sensory awareness; Z79.01 Long term (current) use of anticoagulants; Z79.899 Other long term (current) drug therapy; R20.2 Paresthesia of skin; Z85.820 Personal history of malignant melanoma of skin; T36.8X5A Adverse effect of other systemic antibiotics, initial encounter; R41.0 Disorientation, unspecified; R91.8 Other nonspecific abnormal finding of lung field
CPT/HCPCS: 36415; 70450; 71045; 80048; 80053; 81001; 82274; 83735; 83930; 83935; 84100; 84300; 84443; 85025; 85027; 87077; 87086; 87088; 87186; 92507; 92526; 92610; 94668; 94762; 97110; 97112; 97129; 97130; 97140; 97162; 97167; 97530; 97535; 97803; A4216; J0585

== ENCOUNTER → 2025-02-17 | Outpatient (REF) | payer SELFPAY ==
--- OUTSIDE RECORDS SUMMARY | 2025-02-17 04:51 | XMS RPT_ITS | CCD ---
Author Organization [facility] Care Team Providers Care Manager Of Disaster Recovery Name Role Phone Dr. Devyn Montalvo Primary Care Provider [phone] Dr. Devyn Montalvo Referring Provider NEENA Yang Attending Provider NEENA Lin Attending Provider NEENA Vasques Attending Provider Dr. Devyn Montlavo Primary Care Provider [phone] Dr. Devyn Montalvo Referring Provider Dr. Jalen Clay Attending Provider [phone]([facility])-[phone] Ankit Alvarenga Attending Provider 1([facility])-[phone] Devyn Montalvo Primary Care Provider Dr. Jalen Clay Attending Provider 1([facility])-[phone] Ankit Alvarenga Attending Provider 1([facility])-[phone] Judy Bernal Referring Provider [phone]([phone] Devyn Montalvo Referring Provider NEENA Vasques Attending Provider NEENA Vasques Referring Provider NEENA Vasques Other Provider [phone] Dr. Zaki Burger Primary Care Provider Dr. Matt Casas Attending Provider Dr. Devyn Montalvo Primary Care Provider Dr. Zaki Burger Referring Provider NEENA Cortez Attending Provider [phone] Ankit Alvarenga Attending Provider [phone] NEENA Cortez Referring Provider [phone] NEENA Cortezison Other Provider Dr. Briseida Vergara Primary Care Provider [phone] Dr. Amandeep Huang Attending Provider Dr. Briseida Vergara Referring Provider [phone] Devyn Montalvo Primary Care Provider Dr. Devyn Montalvo Referring Provider [phone] Marcia CHAUDHARY PA Kimberly Dunbar Attending Provider Marcia CHAUDHARY PA Kimberly Dunbar Referring Provider Marcia CHAUDHARY PA Kimberly M Other Provider Dr. Zaki Burger Primary Care Provider Dr. Matt Casas Attending Provider Dr. Zaki Burger Referring Provider NEENA Cortez Attending Provider [phone] Ankit Alvarenga Attending Provider [phone] NEENA Cortez Avis Referring Provider [phone] NEENA Cortez Other Provider Dr. Briseida Vergara Primary Care Provider [phone] Dr. Amandeep Huang Attending Provider Dr. Briseida Vergara Referring Provider [phone] Zaki Burger Primary Care Provider NEENA Cortez Attending Provider [phone] Ankit Alvarenga Referring Provider [phone] Ankit Alvarenga Other Provider Dr. Briseida Vergara Primary Care Provider [phone] Dr[address] Ankit Alvarenga Attending Provider Dr. Briseida Vergara Primary Care Provider Dr. Briseida Vergara Referring Provider NEENA Cortez Attending Provider Jai YANEZ, Dr. Goins Primary Care Provider Dr. Briseida Vergara MD Referring Provider Lamin Lin Attending Provider Roof ETL LEAD-C, Mateo Thomas Attending Provider Gigi PEARCE, Dr. Davdi Emergency Provider Briseida Vergara MD Primary Care Provider Gigi PEARCE, Dr. David Attending Provider Robin PEARCE, Dr. Savanna Valerio Admit Provider Robin PEARCE, Dr. Savanna Valerio Attending Provide r Love YANEZ, Dr. Pozo Other Provider Robin PEARCE, Dr. Savanna Valerio Other Provider Rell ETL LEAD-CCandy Attending Provide r TATIANA SANTOS Referring Unavailable MIEDEL, BRISEIDA E Primary Care Unavailable Gege Duenas MD Attending Provider UnavailGege Penny MD Referring Provider Unavailkvng Murray ETL LEAD-CAshley Attending Provider KATI CHAUHAN Attending UnavailKATI López Admitting UnavailMIKE Lee Consulting Unavailable MIEDEL, BRISEIDA E Primary Care Unavailable MIEDEL, BRISEIDA E Primary Care Unavailable MIKE PADILLA Attending Unavailable PIERRE STAHL Referring Unavailable MIEDEL, BRISEIDA E Primary Care Unavailable MIKE PADILLA Attending Unavailable PIERRE STAHL Referring Unavailable MIEDEL, BRISEIDA E Primary Care Unavailable Savanna Kelly Admitting Unavaila ble Mied, [place] Primary Care Unavailable Basali, Ayman Consulting Unavailable Sementi, Savanna Valerio Attending Unavaila ble Sementi, Savanna Valerio Consulting Unavaila ble Miedel, [place] Referring Unavailable Ared, [place] Primary Care Unavailable Mateo Crane NP Attending Unavailable Ared, [place] Referring Unavailable Ared, [place] Primary Care Unavailable Lamin Lin Attending Unavailable Mied, [place] Primary Care Unavailable OleghEly Aikenbe Attending Unavailabl e Oleghe LYLE Efewongbe Referring Unavailabl e Miedel, [place] Primary Care Unavailable Frankie Yu Attending Unavailable Ared, [place] Primary Care Unavailable Basali, Ayman Consulting Unavailable Semenboris, Savanna Valerio Admitting Unavaila ble Sementi, Savanna Valerio Attending Unavaila ble Mied, [place] Attending Unavailable Ared, [place] Referring Unavailable Ared, [place] Primary Care Unavailable Aredel, [place] Primary Care Unavailable NicolasghEly Aikenbe Attending Unavailabl e Mied, [place] Referring Unavailable Ared, [place] Primary Care Unavailable Royce INMAN, Mateo Thomas Attending Unavailable Ared, [place] Primary Care Unavailable Ashley Murray NP Attending Unavailable [facility], [place] Primary Care Unavailable OleghGege Aiken Attending [facility]availabl e [facility] Gege Guevara Attending Unavailabl e [place], [place] Primary Care Unavailable Gege Guevara Attending Unavailabl Candy Ward Attending Dayana hernandez Allergies Allergy Classification Reported Allergen(s) Allergy Type Date of Onset Reaction(s) Facility (2 sources) levoFLOXacin Drug Allergy 5 acute delirium [facility] (1 source) levoFLOXacin Drug Allergy 5 [facility] Repository Medications Current Medications Medication Drug Class(es) Dates Sig (Normalized) Sig (Original) acetaminophen 500 mg oral tablet (9 sources) Start: 12-30-2024 End: 01-16-2025 take 2 tablets by mouth every eight hours as needed for pain Acetaminophen 500 mg tablet Active 1000 mg PO EVERY 8 HOURS as needed for pain/fever 1 January 16, 2025 12:18pm take 1 tablet by latoya th every eight hours as needed acetaminophen (TYLENOL EXTRA STRENGTH) 5 00 mg tablet Take 500 mg by mouth every 8 hours as needed for pain. Active bisacodyl 10 mg rectal suppository (7 sources) Stimulant Laxative Start: 01-16-2025 Bisacodyl 1 0 mg Suppository Active 10 mg RC ONE TIME as needed for Constipation 0 January 16, 2025 12:00am docusate sodium 50 mg / sennosides, penitent[facility] 8.6 mg oral tablet (7 sources) Start: 01-16-2025 Sennosides-Doc usate Sodium (Stimulant Laxative Plus) 8.6-50 mg Tablet Active 2 {tbl} PO TWICE A DAY 0 January 16, 2025 12:00am take 1 tablet by mouth once raza y senna-docusate (SENNA-S) 8.6-50 mg per tablet Take 1 tablet by mouth once daily. Active emollient combination no.119 (EUCERIN ADVANCED REPAIR) crea (5 sources) emollient combin ation no.119 (EUCERIN ADVANCED REPAIR) crea Apply to affected area. Active gabapentin 100 mg oral capsule (7 sources) Anti-epileptic Agent Start: 5 Gabapentin 100 mg Capsule Active 100 mg PO 0600,1800 0 January 16, 2025 12:00am magnesium chloride 598 mg delayed release oral tablet (2 sources) Start: 5 take 2 tablets by mouth once daily Magnesium Chloride 64 mg Tablet,Delayed Release (Dr/Ec) Active 128 mg PO DAILY 0 January 16, 2025 12:00am magnesium chloride 64 mg magnesium tab (5 sources) magnesium chlori de 64 mg magnesium tab Take by mouth. Active Magnesium Hydroxide (7 sources) Start: 5 take 1 mL by mouth once as needed for constipation Magnesium Hydroxide 400 mg/5 mL Suspension Active 30 mL PO ONE TIME as needed for Constipation 0 January 16, 2025 12:00am take 30 mL by mouth once daily as needed for constipation magnesium hydroxide (MOM) 400 mg/5 mL suspension Take 30 mL by mouth once daily as needed for constipation. Active Menthol / Zinc Oxide (7 sources) Start: 01-16-2025 Menthol-Zinc O xide (Calmoseptine) 0.44-20.6 % Ointment Active 1 NMA TOPICAL TWICE A DAY 0 0 January 16, 2025 12:00am Please contact the information source for Protocol details. Menthol-Zinc Oxi de (CALMOSEPTINE) 0.44-20.6 % Apply to affected area. Active 24 hr metoprolol succinate 25 mg extended release oral tablet (20 sources) beta-Adrenergic Vanesa Start: 01-16-2025 take 1 tablet by mouth every twenty-four hours at bedtime Metoprolol Succinate 25 mg Tablet Extended Release 24 Hr Active 25 mg PO AT BEDTIME 0 January 16, 2025 12:00am Start: 07-27-2023 End: 12-30-2024 take 1 tablet by mouth once daily Metoprolol Succinate 50 mg tablet extended release 24 hr Discontinued 50 mg PO daily 90 3 August 22, 2024 11:37am December 30, 2024 6:33pm Start: 05-17-2023 End: 07-27-2023 take 2 tablets by mouth once daily Metoprolol Succinate (Toprol Xl) 50 mg tablet extended release 24 hr Discontinued 25 mg PO DAILY 90 3 May 17, 2023 1:17pm July 27, 2023 1:37pm Start: 08-02-2022 End: 05-17-2023 take 1 tablet by mouth once daily Metoprolol Succinate (Toprol Xl) 50 mg tablet extended release 24 hr Discontinued 50 mg PO DAILY 90 3 August 02, 2022 1:00am May 17, 2023 1:17pm Start: 02-01-2019 End: 04-16-2019 take 1 tablet by mouth once daily Metoprolol Succinate 25 mg tablet extended release 24 hr Discontinued 25 mg PO DAILY 30 February 01, 2019 4:20pm April 16, 2019 11:11am Start: 09-25-2018 End: 02-01-2019 take 1 tablet by mouth once daily Metoprolol Succinate (Toprol Xl) 50 mg tablet extended release 24 hr Discontinued 50 mg PO DAILY 90 3 September 25, 2018 12:00am February 01, 2019 4:16pm mirtazapine 15 mg oral table t (7 sources) Start: 01-16-2025 Mirtazapine 15 mg Tablet Active 22.5 mg PO 2000 1 0 Yady 24th, 2025 12:00am take 1 tablet by latoya th once daily at bedtime mirtazapine (REMERON) 15 mg tablet Take 15 mg by mouth daily at bedtime. 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 Peripheral neuropathy Neuralgia and neuritis, unspecified Chronic pain due to trauma Other specified polyneuropathies Start: 12-30-2024 End: 01-16-2025 take 1 tablet by mouth every four hours as needed for pain Oxycodone 5 mg tablet Discontinued 5 mg PO Q4H as needed for pain 1-10 December 30, 2024 12:00am January 16, 2025 12:18pm pantoprazole 40 mg delayed release oral tablet (7 sources) Proton Pump Inhibitor Start: 01-16-2025 take 1 tablet by mouth once daily Pantoprazole 40 mg Tablet,Delayed Release (Dr/Ec) Active 40 mg PO DAILY 0 January 16, 2025 12:00am take 40 mg by mouth once daily in the morning pantoprazole (PROTONIX) 40 mg grps Take 40 mg by mouth daily at 6 am. Active Petrolatum (2 sources) Start: 01-16-2025 Petrolatum 33% (Eucerin Eqivalent) Active 1 NMA topical AT BEDTIME 1 January 16, 2025 12:00am apply to the distal LE's from the knee to the toes. rivaroxaban 20 mg oral tablet (20 sources) Factor Xa Inhibitor Start: 01-17-2025 take 1 tablet by mouth once daily at dinner Rivaroxaban 20 mg tablet Active 20 mg PO EVERY EVENING 30 0 January 17, 2025 12:00am must administer with evening meal Start: 05-05-2021 End: 12-30-2024 take 1 tablet by mouth once daily at dinner Rivaroxaban (Xarelto) 20 mg tablet Discontinued 20 mg PO EVERY EVENING 90 June 23, 2023 10:55am June 20, 2024 4:35pm must administer with evening meal Saliva Substitute Combo No.9 (Biotene Dry Mouth Oral Rinse) Mouthwash (2 sources) Start: 01-16-2025 take 1 mL by mouth four times daily Saliva Substitute Combo No.9 (Biotene Dry Mouth Oral Rinse) Mouthwash Active 15 mL MUCOUS MEM 4 TIMES DAILY 0 0 January 16, 2025 12:00am saliva substitute combo no.9 (BIOTENE DRY MOUTH ORAL RINSE) mwsh (5 sources) saliva substitut e combo no.9 (BIOTENE DRY MOUTH ORAL RINSE) mwsh Use 15 mL as instructed. Active sodium chloride 1000 mg oral tablet (7 sources) Start: 01-16-2025 take 1 tablet by mouth twice daily Sodium Chloride 1,000 mg Tablet,Soluble Active 1000 mg PO TWICE A DAY 0 0 January 16, 2025 12:00am take 1 tablet by mouth three noy es daily sodium chloride soluble tablet 1 g Take 1 g by mouth three times a day. Active Completed/Discontinued Medications Medication Drug Class(es) Dates Sig (Normalized) Sig (Original) acetaminophen 325 mg / HYDROcodone bitartrate 5 mg oral tablet (17 sources) Opioid Agonist Start: 07-31-2020 End: 08-07-2020 take 1-2 tablets by mouth every four hours as needed for pain Hydrocodone-Acetamin ophen 1 TABLET tablet Discontinued 1 - 2 {tbl} PO EVERY 4 HOURS NEEDED as needed for Pain 56 7 0 July 31, 2020 August 06, 2020 1:00am August 07, 2020 1:03am Degeneration of intervertebral disc of lumbar region Other intervertebral disc degeneration, lumbar region 1 to 2 tablets every 4 hours as needed for pain Start: 07-31-2020 End: 08-07-2020 take 1-2 tablets by mouth every four hours as needed for pain Hydrocodone-Acetaminophen Discontinued 1 - 2 TABLET PO EVERY 4 HOURS NEEDED 56 7 July 31, 2020 August 07, 2020 12:03am 1 to 2 tablets every 4 hours as needed for pain amiodarone hydrochloride 200 mg oral tablet (20 sources) Antiarrhythmic Start: 01-31-2023 End: 02-08-2023 Amiodarone 200 mg tablet Discontinued 100 mg PO DAILY 45 3 January 31, 2023 9:04am February 08, 2023 4:06pm Start: 01-31-2023 End: 02-08-2023 take 100 mg by mouth once daily Amiodarone Discontinue d 100 MG PO DAILY 45 January 31, 2023 8:04am February 08, 2023 3:06pm Start: 02-01-2019 End: 01-31-2023 take 1 tablet by mouth once daily Amiodarone 200 mg tablet Discontinued 200 mg PO DAILY 90 3 February 08, 2022 4:42pm January 31, 2023 9:05am amoxicillin 500 mg oral capsule (17 sources) Penicillin-class Antibacterial Start: 07-25-2018 End: 08-08-2018 take 2 capsules by mouth twice daily Amoxicillin 500 mg capsule Discontinued 1000 mg PO TWICE A DAY 56 14 0 July 25, 2018 1:00am August 07, 2018 1:00am August 08, 2018 1:07am Start: 07-25-2018 End: 08-08-2018 take 1000 mg by mouth twice daily Amoxicillin Discontinued 1000 MG PO TWICE A DAY 56 14 July 25, 2018 12:00am August 08, 2018 12:07am amoxicillin 875 mg / clavulanate 125 mg oral tablet (17 sources) Penicillin-class Antibacterial Start: 01-24-2021 End: 02-02-2021 Amoxicillin-Pot Clavulanate (Augmentin) 875-125 mg tablet Discontinued 1 {tbl} PO TWICE A DAY 14 7 0 January 24, 2021 12:00am February 02, 2021 1:01pm apixaban 5 mg oral tablet (20 sources) Factor Xa Inhibitor Start: 01-20-2021 End: 07-29-2021 take 1 tablet by mouth twice daily Apixaban (Eliquis) 5 mg tablet Discontinued 5 mg PO TWICE A DAY 180 3 February 09, 2021 8:50am July 29, 2021 9:58am Start: 09-25-2018 End: 07-31-2020 take 1 tablet by mouth twice daily Apixaban (Eliquis) 5 mg tablet Discontinued 5 mg PO TWICE A DAY 180 3 May 20, 2019 10:34am February 04, 2020 9:35am aspirin 81 mg delayed release oral tablet (17 sources) Platelet Aggregation Inhibitor, Nonsteroidal Anti-inflammatory Drug Start: 04-29-2015 End: 09-25-2018 take 1 tablet by mouth once daily Aspirin 81 MG tablet Discontinued 81 mg PO DAILY@0800 April 29, 2015 1:00am September 25, 2018 9:16am Prophylaxis bisoprolol fumarate 5 mg / hydroCHLOROthiazide 6.25 mg oral tablet (20 sources) Thiazide Diuretic, beta-Adrenergic Vanesa Start: 04-16-2019 End: 08-02-2022 Bisoprolol-[place] chlorothiazide (Ziac) 5-6.25 mg tablet Discontinued 1 {tbl} PO DAILY 90 3 March 21, 2022 5:22pm August 02, 2022 12:32pm Start: 04-29-2015 End: 09-25-2018 Bisoprolol-Hydrochlorothiazi de 5-6.25 mg tablet Discontinued 1 {tbl} PO DAILY July 25, 2018 1:18pm September 25, 2018 9:17am Blood Pressure Start: 04-29-2015 End: 09-25-2018 take 1 tablet by mouth once daily Bisoprolol-Hydrochlorothiazide Discontin ued 1 TABLET PO DAILY July 25, 2018 12:18pm September 25, 2018 8:17am cephalexin 500 mg oral capsule (20 sources) Cephalosporin Antibacterial Start: 06-21-2021 End: 07-26-2021 take 1 capsule by mouth three times daily Cephalexin 500 mg capsule Discontinued 500 mg PO THREE TIMES A DAY 21 0 June 21, 2021 1:00am July 26, 2021 8:29am Start: 12-21-2019 End: 01-27-2020 take 1 capsule by mouth four times daily Cephalexin 500 MG capsule Discontinued 500 mg PO 4 TIMES DAILY 40 0 December 21, 2019 12:00am January 27, 2020 7:13am ciprofloxacin 500 mg oral tablet (20 sources) Quinolone Antimicrobial Start: 07-25-2023 End: 08-28-2023 take 1 tablet by mouth twice daily Ciprofloxacin Hcl (Cipro) 500 mg tablet Discontinued 500 mg PO TWICE A DAY 14 0 July 25, 2023 1:00am August 28, 2023 7:36am Start: 10-01-2021 End: 08-02-2022 take 1 tablet by mouth twice daily Ciprofloxacin Hcl (Cipro) 500 mg tablet Discontinued 500 mg PO TWICE A DAY 6 0 October 01, 2021 12:00am August 02, 2022 12:05pm Start: 07-30-2021 End: 08-04-2021 take 1 tablet by mouth every twelve hours Ciprofloxacin Hcl (Cipro) 500 mg tablet Discontinued 500 mg PO Q12H 10 5 0 July 30, 2021 1:00am August 03, 2021 1:00am August 04, 2021 1:03am citalopram 10 mg oral tablet (17 sources) Serotonin Reuptake Inhibitor Start: 10-22-2016 End: 09-19-2017 take 1 tablet by mouth once daily Citalopram 10 MG tablet Discontinued 10 mg PO DAILY October 22, 2016 12:00am September 19, 2017 11:05am Depression/Anxiety cyclobenzaprine hydrochloride 5 mg oral tablet (2 sources) Muscle Relaxant Start: 12-30-2024 End: 01-16-2025 take 1 tablet by mouth three times daily as needed for muscle spasms Cyclobenzaprine 5 mg tablet Discontinued 5 mg PO THREE TIMES A DAY as needed for muscle spasm December 30, 2024 12:00am January 16, 2025 12:07pm doxycycline monohydrate 100 mg oral capsule (20 sources) Tetracycline-c lass Drug Start: 01-20-2021 End: 01-22-2021 take 1 capsule by mouth twice daily Doxycycline Monohydrate 100 mg capsule Discontinued 100 mg PO TWICE A DAY 20 0 January 20, 2021 12:00am January 22, 2021 12:40pm Start: 04-12-2019 End: 04-22-2019 take 1 capsule by mouth twice daily Doxycycline Hyclate 100 mg capsule Discontinued 100 mg PO TWICE A DAY 20 10 0 April 12, 2019 12:00am April 21, 2019 12:00am April 22, 2019 12:08am Acute sinusitis, unspecified dutasteride 0.5 mg oral capsule (20 sources) 5-alpha Reductase Inhibitor Start: 09-25-2018 End: 08-02-2022 take 1 capsule by mouth once daily Dutasteride 0.5 mg capsule Discontinued 0.5 mg PO DAILY September 25, 2018 12:00am August 02, 2022 12:05pm prostate Start: 09-21-2017 End: 07-25-2018 take 1 capsule by mouth once daily Dutasteride 0.5 MG capsule Discontinued 0.5 mg PO DAILY September 21, 2017 12:00am July 25, 2018 1:18pm prostate furosemide 20 mg oral tablet (14 sources) Loop Diuretic Start: 01-31-2023 End: 02-14-2023 take 1 tablet by mouth once daily Furosemide (Lasix) 20 mg tablet Discontinued 20 mg PO DAILY 5 0 January 31, 2023 12:00am February 14, 2023 10:30am ibuprofen 200 mg oral tablet (1 source) Nonsteroidal Anti-inflammatory Drug End: 12-30-2024 take 1 tablet by mouth every eight hours ibuprofen (ADVIL) 200 mg tablet Take 200 mg by mouth every 8 hours. 12/30/2024 Discontinued levoFLOXacin 750 mg oral tablet (20 sources) Quinolone Antimicrobial Start: 09-23-2017 End: 07-25-2018 take 1 tablet by mouth once daily Levofloxacin 750 MG tablet Discontinued 750 mg PO DAILY 5 0 September 23, 2017 12:00am July 25, 2018 1:18pm Start: 10-25-2016 End: 09-19-2017 take 1 tablet by mouth once daily Levofloxacin 500 MG tablet Discontinued 500 mg PO DAILY 42 October 25, 2016 12:00am September 19, 2017 11:06am lisinopril 20 mg oral tablet (20 sources) Angiotensin Converting Enzyme Inhibitor Start: 02-10-2021 End: 01-21-2025 take 1 tablet by mouth once daily Lisinopril 20 mg tablet Discontinued 20 mg PO DAILY 90 July 21, 2023 11:55am June 20, 2024 4:35pm Start: 02-02-2021 End: 02-10-2021 take 1 tablet by mouth once daily Lisinopril 10 mg tablet Discontinued 10 mg PO DAILY 30 6 February 02, 2021 12:00am February 10, 2021 1:16pm magnesium glycinate 100 mg oral tablet (7 sources) Start: 12-30-2024 End: 01-16-2025 Magnesium Glycinate (Mag Glycinate) 100 mg tablet Discontinued 200 mg PO DAILY December 30, 2024 12:00am January 16, 2025 12:08pm supplement End: 01-21-2025 take 200 mg by mouth once daily MAGNESIUM GLYCINATE PO Take 200 mg by mouth once daily. 01/21/2025 Discontinued take 200 mg by mouth once daily MAGNESIUM GLYCINATE PO Take 200 mg by mouth once daily. Active nitrofurantoin, macrocrystals 25 mg / nitrofurantoin, monohydrate 75 mg oral capsule (20 sources) Nitrofuran Antibacterial Start: 07-26-2021 End: 08-02-2021 take 1 capsule by mouth every twelve hours at mealtime Nitrofurantoin Monohyd/M-Cryst 100 mg capsule Discontinued 1 NMA PO Q12H 14 7 0 July 26, 2021 1:00am August 01, 2021 1:00am August 02, 2021 1:02am administer with a meal/food; swallow whole; do not open, crush, dissolve , or chew Start: 07-07-2021 End: 07-21-2021 take 1 capsule by mouth every twelve hours at mealtime Nitrofurantoin Monohyd/M-Cryst (Macrobid) 100 mg capsule Discontinued 100 mg PO Q12H 28 14 0 July 07, 2021 1:00am July 20, 2021 1:00am July 21, 2021 1:01am must administer with a meal/food sulfamethoxazole 800 mg / trimethoprim 160 mg oral tablet (20 sources) Dihydrofolate Reductase Inhibitor Antibacterial, Sulfonamide Antimicrobial Start: 11-01-2024 End: 11-08-2024 Sulfamethoxazole-Trimethopri m (Bactrim Ds) 800-160 mg tablet Discontinued 1 {tbl} PO Q12H 14 7 0 November 01, 2024 12:00am November 07, 2024 12:00am November 08, 2024 12:09am Start: 01-27-2020 End: 02-03-2020 Sulfamethoxazole-Trimethopri m (Bactrim Ds) 800-160 mg tablet Discontinued 1 {tbl} PO Q12H 14 7 0 January 27, 2020 12:00am February 02, 2020 12:00am February 03, 2020 12:02am Problems Active Problems Problem Classification Problem Date Documented Date Episodic/Chronic Acute cerebrovascular disease (20 sources) Hematoma of subdural space of neuraxis; Translations: [SDH (subdural hematoma) (HCC)] Onset: 12-24-1912-30-2024 Chronic Comment on above: F/U [place] CTB on 5 showed 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 Aortic; peripheral; and visceral artery aneurysms (5 sources) Ascending aorta dilatation; Translations: [Thoracic aortic ectasia] Onset: 01-18-20 25 01-16-2025 Chronic Comment on above: Found incidentally o n a CTA of the head and neck. Measures 4.1 cm. Cardiac dysrhythmias (20 sources) Paroxysmal atrial fibrillation; Translations: [Paroxysmal atrial fibrillation] Onset: 12-24-19 Chronic Comment on above: diagnosed 2011 Chronic ulcer of skin (6 sources) Pressure ulcer of unspecified site, unspecified stage; Translations: [Pressure injury of skin] Onset: 01-18-2001-16-2025 Chronic Conduction disorders (17 sources) First degree atrioventricular block; Translations: [Atrioventricular block, first degree] 04-02-2019 Chronic E Codes: Fall (20 sources) Fall; Translations: [Unspecified fall, initial encounter] Onset: 12-24-1904-14-2019 Episodic E Codes: Unspecified (1 source) Nosocomial condition; Translations: [Nosocomial condition] Onset: 01-23-20 Episodic Essential hypertension (20 sources) Essential hypertension; Translations: [Essential (primary) hypertension] Onset: 04-18-20 Chronic Fever of unknown origin (7 sources) Fever; Translations: [Fever, unspecified] 07-25-2023 Episodic Fluid and electrolyte disorders (10 sources) Hyponatremia; Translations: [Hypo-osmolality and hyponatremia] Onset: 01-23-2001-02-2025 Episodic Genitourinary symptoms and ill-defined conditions (5 sources) Urinary incontinence; Translations: [Unspecified urinary incontinence] Onset: 01-23-2001-14-2025 Chronic Genitourinary symptoms and ill-defined conditions (17 sources) Increased frequency of urination; Translations: [Frequency of micturition] 07-28-2022 Episodic Intracranial injury (5 sources) Cerebral hemorrhage following injury; Translations: [Traumatic intracerebral hemorrhage] Onset: 01-23-2001-14-2025 Episodic Comment on above: Due to a fall on 11/25 causing him to strike his head in pt on chronic anticoagulation with Xarelto. SDH's, SAH. No surgical intervention was done. Joint disorders and dislocations; trauma-related (5 sources) Subluxation of shoulder joint; Translations: [Unspecified subluxation of left shoulder joint, initial encounter] Onset: 01-18-2001-16-2025 Episodic Malaise and fatigue (20 sources) Fatigue; Translations: [Other fatigue] Onset: 01-23-20 25 04-02-2019 Episodic Melanomas of skin (5 sources) H/O Malignant melanoma; Translations: [Personal history of malignant melanoma of skin] Onset: 01-23-2012-31-2024 Episodic Mood disorders (5 sources) Depressive disorder; Translations: [Depression] Onset: 01-23-2001-14-2025 Chronic Nonspecific chest pain (2 sources) Chest pain; Translations: [Chest pain, unspecified] 11-02-2023 Episodic Open wounds of head; neck; and trunk (17 sources) Scalp laceration; Translations: [Laceration without foreign body of scalp, initial encounter] 05-26-2020 Episodic Other aftercare (10 sources) Drug therapy finding; Translations: [Other buttermaker (current) drug therapy] 01-31-2023 Episodic Other aftercare (5 sources) Other group home (current) drug therapy; Translations: [Long-term (current) use of other medications] 01-31-2023 Episodic Other aftercare (4 sources) Long-term current use of amiodarone; Translations: [Other group home (current) drug therapy] 01-31-2023 Episodic Comment on above: Amiodarone was stopp ed due to a change in DLCO. Other aftercare (14 sources) Long-term current use of anticoagulant; Translations: [[facility] (current) use of anticoagulants] Onset: 12-24-1912-23-2024 Episodic Comment on above: Xarelto....currently on hold due to intracerebral bleeding. 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] Onset: 01-23-2001-08-2025 Episodic Other diseases of veins and lymphatics (11 sources) Peripheral venous insufficiency; Translations: [Venous insufficiency (chronic) (peripheral)] 05-11-2023 Episodic Other diseases of veins and lymphatics (13 sources) Venous insufficiency (chronic) (peripheral); Translations: [Venous (peripheral) insufficiency, unspecified] Onset: 01-23-2005-11-2023 Episodic Other gastrointestinal disorders (4 sources) Incontinence of feces; Translations: [Full incontinence of feces] 01-14-2025 Episodic Other gastrointestinal disorders (4 sources) Occult blood in stools; Translations: [Other fecal abnormalities] 01-02-2025 Episodic Other gastrointestinal disorders (1 source) Other fecal abnormalities; Translations: [Other fecal abnormalities] Onset: 01-23-20 Episodic Other gastrointestinal disorders (1 source) Full incontinence of feces; Translations: [Full incontinence of feces] Onset: 01-23-20 Episodic Other hereditary and degenerative nervous system conditions (4 sources) Cervical syndrome; Translations: [Spasmodic torticollis] 01-14-2025 Chronic Other hereditary and degenerative nervous system conditions (4 sources) Impaired cognition; Translations: [Mild cognitive impairment, so stated] 01-16-2025 Chronic Other hereditary and degenerative nervous system conditions (1 source) Mild cognitive impairment, so stated; Translations: [Mild cognitive impairment of uncertain or unknown etiology] Onset: 01-23-20 Chronic Other hereditary and degenerative nervous system conditions (1 source) Spasmodic torticollis; Translations: [Spasmodic torticollis] Onset: 01-23-20 Chronic Other injuries and conditions due to external causes (17 sources) Hematoma; Translations: [Other injury of unspecified body region, initial encounter] 04-14-2019 Episodic Other injuries and conditions due to external causes (17 sources) Closed injury of head; Translations: [Unspecified injury of head, initial encounter] 05-26-2020 Episodic Other injuries and conditions due to external causes (4 sources) Injury of head; Translations: [Unspecified injury of head, subsequent encounter] 12-30-2024 Episodic Other injuries and conditions due to external causes (10 sources) Traumatic injury; Translations: [Injury, unspecified, initial encounter] Onset: 12-24-1912-23-2024 Episodic Other injuries and conditions due to external causes (1 source) Unspecified injury of head, subsequent encounter; Translations: [Injury of head, subsequent encounter] Onset: 01-22-20 Episodic Other lower respiratory disease (4 sources) Multiple nodules of lung; Translations: [Other nonspecific abnormal finding of lung field] 01-16-2025 Episodic Comment on above: the largest measurin g 8 mm Other lower respiratory disease (1 source) Other nonspecific abnormal finding of lung field; Translations: [Other nonspecific abnormal finding of lung field] Onset: 01-18-20 Episodic Other nervous system disorders (10 sources) Neuropathy; Translations: [Polyneuropathy, unspecified] Onset: 12-24-1912-23-2024 Chronic Other nervous system disorders (4 sources) Peripheral nerve disease ; Translations: [Polyneuropathy, unspecified] 12-31-2024 Chronic Comment on above: Likely due to LS DJD /DDD/chronic back pain. Other nervous system disorders (1 source) Other specified polyneuropathies; Translations: [Other specified polyneuropathies] Onset: 01-23-20 Chronic Other nervous system disorders (1 source) Chronic pain due to trauma; Translations: [Chronic pain due to trauma] Onset: 01-23-20 Chronic Other nervous system disorders (10 sources) Numbness of lower limb ; Translations: [Anesthesia of skin] 02-15-2023 Episodic Other nervous system disorders (12 sources) Impairment of balance; Translations: [Other abnormalities of gait and mobility] 02-15-2023 Episodic Comment on above: More likely than not related to peripheral neuropathy associated with DJD/DDD lumbosacral spine Other nervous system disorders (9 sources) Other abnormalities of gait and mobility; Translations: [Other symptoms involving nervous and musculoskeletal systems] 02-14-2023 Episodic Other nervous system disorders (10 sources) Anesthesia of skin; Translations: [Disturbance of skin sensation] Onset: 12-26-1902-14-2023 Episodic Other nervous system disorders (4 sources) Paresthesia; Translations: [Paresthesia of skin] 12-31-2024 Episodic Comment on above: chronic paresthesias in the BL LE's. New numbness in the Left face and the LUE. Other nervous system disorders (1 source) Paresthesia of skin; Translations: [Paresthesia of skin] Onset: 01-23-20 Episodic Other nutritional; endocrine; and metabolic disorders (4 sources) Unintentional weight loss; Translations: [Abnormal weight loss] 01-14-2025 Episodic Comment on above: weight decreased 11 lbs while on rehab due to poor appetite and intake. supplements were provided. Other nutritional; endocrine; and metabolic disorders (1 source) Abnormal weight loss; Translations: [Abnormal weight loss] Onset: 01-18-20 Episodic Paralysis (10 sources) Left hemiparesis; Translations: [Hemiplegia, unspecified affecting left nondominant side] Onset: 12-26-1912-25-2024 Chronic Peripheral and visceral atherosclerosis (20 sources) Peripheral vascular disease, unspecified; Translations: [Peripheral arterial disease] Onset: 01-23-2002-15-2023 Chronic Comment on above: Arterial 11/03/22: Ri ght MARGE 1.1, normal. Doppler/PVR waveforms of the right ankle normal at rest. TBI diminished,pedal/digit diseaseLeft MARGE 0.74, moderate arterial insufficiency. Doppler/PVR waveforms of the left ankle moderatelydiminished at rest. Phlebitis; thrombophlebitis and thromboembolism (17 sources) Phlebitis of superficial veins of lower extremity; Translations: [Phlebitis and thrombophlebitis of superficial vessels of right lower extremity] 07-28-2022 Episodic Pneumonia (except that caused by tuberculosis or sexually transmitted disease) (5 sources) Hospital acquired pneumonia; Translations: [Pneumonia, unspecified organism] Onset: 01-23-2001-06-2025 Episodic Residual codes; unclassified (4 sources) Sleep apnea; Translations: [Sleep apnea, unspecified] 12-31-2024 Chronic Comment on above: Does not wear CPAP a nd does not wear oxygen anytime he is sleeping. Residual codes; unclassified (1 source) Obstructive sleep apnea (adult) (pediatric); Translations: [Obstructive sleep apnea (adult) (pediatric)] Onset: 01-23-20 Chronic Residual codes; unclassified (17 sources) Edema of right lower limb; Translations: [Localized edema] 02-09-2019 Episodic Residual codes; unclassified (14 sources) Edema; Translations: [Edema, unspecified] 01-31-2023 Episodic Residual codes; unclassified (5 sources) Edema, unspecified; Translations: [Edema] 01-31-2023 Episodic Residual codes; unclassified (12 sources) Edema of lower extremity; Translations: [Localized edema] 02-14-2023 Episodic Residual codes; unclassified (9 sources) Localized edema; Translations: [Edema] 02-14-2023 Episodic Residual codes; unclassified (10 sources) Family history of malignant neoplasm of gastrointestinal tract; Translations: [Family history of malignant neoplasm of digestive organs] 04-12-2010 Episodic Residual codes; unclassified (4 sources) Delirium; Translations: [Disorientation, unspecified] 01-14-2025 Episodic Residual codes; unclassified (1 source) Disorientation, unspecified; Translations: [Disorientation, unspecified] Onset: 01-23-20 Episodic Septicemia (except in labor) (20 sources) Sepsis due to urinary tract infection; Translations: [Sepsis, unspecified organism] 12-22-2019 Episodic Skin and subcutaneous tissue infections (20 sources) Cellulitis of lower limb; Translations: [Cellulitis of right lower limb] 01-28-2021 Episodic Spondylosis; intervertebral disc disorders; other back problems (20 sources) Degeneration of lumbar intervertebral disc; Translations: [Other intervertebral disc degeneration, lumbar region] 07-28-2022 Chronic Spondylosis; intervertebral disc disorders; other back problems (5 sources) Torticollis; Translations: [Torticollis] Onset: 01-23-2001-14-2025 Episodic Superficial injury; contusion (18 sources) Cat scratch injury; Translations: [Abrasion of right forearm, initial encounter] Onset: 12-24-1911-01-2024 Episodic Syncope (5 sources) Near syncope; Translations: [Syncope and collapse] Onset: 01-23-2001-02-2025 Episodic Unclassified (2 sources) SDH (subdural hematoma) (HCC); Translations: [SDH (subdural hematoma) (HCC)] Onset: 12-24-19 Unclassified (1 source) Traumatic hemorrhage of cerebrum, unspecified, with loss of consciousness status unknown, initial encounter; Translations: [Traumatic hemorrhage of cerebrum, unspecified, with loss of consciousness status unknown, initial encounter] Onset: 01-23-20 Unclassified (1 source) Unspecified intracranial injury with loss of consciousness status unknown, sequela; Translations: [Unspecified intracranial injury with loss of consciousness status unknown, sequela] Onset: 01-23-20 Urinary tract infections (20 sources) Urinary tract infectious disease; Translations: [Urinary tract infection, site not specified] Onset: 01-18-20 Episodic Past or Other Problems Problem Classification Problem Date Documented Da te Episodic/Chronic Immunizations and screening for infectious disease (1 source) Encounter for immunization; Translations: [Encounter for immunization] Onset: 11-01-2024 Episodic Results Test Name Value Interpretation Reference Range Facility [facility] 02-07-2025 CNPN Telephone ([facility]) SUNG YAÑEZ ([id number]) 1940 M Date Time Provider Department 02/07/25 MIKE PADILLA [facility] During your visit today, we recorded the following information about you: Michelle Gale 02/07/2025 11:56 AM Signed Patients does not want to schedule follow up at this time. Recommended a CT scan and in person visit in one month (around 03/10). Mrs. Yañez will call us in a couple weeks with an update. Michelle Gale Allergies As of Date: 02/07/2025 (No Known Allergies) Date Reviewed: 02/07/2025 Reviewed by: Mike Padilla MD - Fully Assessed Reason for Visit: Appointment [186] Prescriptions as of 02/07/2025 - bisacodyl (DULCOLAX) 10 mg supp 10 mg by RECTAL route once daily as needed for constipation. - magnesium hydroxide (MOM) 400 mg/5 mL suspension Take 30 mL by mouth once daily as needed for constipation. - mirtazapine (REMERON) 15 mg tablet Take 15 mg by mouth daily at bedtime. - gabapentin (NEURONTIN) 100 mg capsule Take 100 mg by mouth three times a day. - magnesium chloride 64 mg magnesium tab Take by mouth. - Menthol-Zinc Oxide (CALMOSEPTINE) 0.44-20.6 % Apply to affected area. - senna-docusate (SENNA-S) 8.6-50 mg per tablet Take 1 tablet by mouth once daily. - pantoprazole (PROTONIX) 40 mg grps Take 40 mg by mouth daily at 6 am. - saliva substitute combo no.9 (BIOTENE DRY MOUTH ORAL RINSE) mwsh Use 15 mL as instructed. - emollient combination no.119 (EUCERIN ADVANCED REPAIR) crea Apply to affected area. - sodium chloride soluble tablet 1 g Take 1 g by mouth three times a day. - metoprolol succinate ER (TOPROL XL) 50 mg 24 hr tablet Take 50 mg by mouth once daily. - acetaminophen (TYLENOL EXTRA STRENGTH) 500 mg tablet Take 500 mg by mouth every 8 hours as needed for pain. - oxyCODONE IR (ROXICODONE) 5 mg immediate release tablet Take 5 mg by mouth every 6 hours as needed for pain. - metoprolol succinate ER (TOPROL XL) 25 mg 24 hr tablet Take 25 mg by mouth once daily. Problem List As Of Date 02/07/2025 Noted Resolved Family history of malignant neoplasm of gastroi* SDH (subdural hematoma) (HCC) [S06.5XAA] 12/23/2024 Trauma [T14.90XA] 12/23/2024 Fall [W19.XXXA] 12/23/2024 Current use of group home anticoagulation [Z79.0*12/23/2024 Scalp abrasion [S00.01XA] 12/23/2024 Neuropathy [G62.9] 12/23/2024 Left leg weakness [R29.898] 12/23/2024 Primary hypertension [I10] 12/23/2024 Chronic atrial fibrillation (HCC) [I48.20] 12/23/2024 Acute left hemiparesis (HCC) [G81.94] 12/25/2024 Encounter Status:Closed by MICHELLE GALE on 02/07/[address] [facility] [address] BRAIN WO IVCONon 02-05-20 CT BRAIN WO IVCON * * *Final Report* * * DATE OF EXAM: Feb 04 2025 10:17AM [facility] 0504 - CT BRAIN WO IVCON / PROCEDURE REASON: SDH (subdural hematoma) (HCC) * * * * Physician Interpretation * * * * EXAMINATION: CT BRAIN WO IVCON CLINICAL HISTORY: Subdural hematoma follow-up. TECHNIQUE: Serial axial images without IV contrast were obtained from the vertex to the foramen magnum. MQ: CTBWO_3 CT Radiation dose: Integrated Dose-Length Product (DLP) for this visit = 784 mGy*cm CT Dose Reduction Employed: Automated exposure control(AEC) and iterative recon COMPARISON: CT head 01/21/2025 RESULT: Localizer images: No additional findings. Post-operative change: None. Acute change: No evidence of an acute infarct or other acute parenchymal process. Hemorrhage: Continued interval decrease in size of right posterior parafalcine evolving subdural hemorrhage measuring 13 mm thick (TV), previously 16 mm on 01/21/2025. Near-complete resolution of subdural hematoma along the right cerebral convexity (previously 5 mmThe Mass Lesion / Mass Effect: . Associated slight interval decrease in effacement of the adjacent brain parenchyma and right lateral ventricle occipital horn. No new intracranial hemorrhage or significant midline shift. Chronic change: Patchy foci of low attenuation are present within the supratentorial white matter, a nonspecific finding that most commonly represents moderate small vessel disease. Parenchyma: There is mild to moderate generalized volume loss. Ventricles: Ventricular enlargement concordant with the degree of parenchymal volume loss. Paranasal sinuses and skull base: The visualized paranasal sinuses are grossly clear. Bilateral pseudophakia. skull base and imaged soft tissues are unremarkable. IMPRESSION: Interval near complete resolution of right cerebral convexity subdural hemorrhage and decrease in size of right posterior parafalcine evolving subdural hemorrhage. Improving mild residual adjacent mass effect without significant midline shift. No new intracranial hemorrhage or acute intracranial process. Hypoid Gear Tester: PONCE Transcribe Date/Time: Feb 04 2025 10:39A Dictated by : GARRETT FARLEY MD This examination was interpreted and the report reviewed and electronically signed by: CAMPOS YOUNG MD on Feb 04 2025 11:33AM EST [id number] CN [facility] CT Head WO contraston 2024 IMPRESSION: Interval near complete resolution of right cerebral convexity subdural hemorrhage and decrease in size of right posterior parafalcine evolving subdural hemorrhage. Improving mild residual adjacent mass effect without significant midline shift. No new intracranial hemorrhage or acute intracranial process. Hypoid Gear Tester: PONCE Transcribe Date/Time: Feb 04 2025 10:39A Dictated by : GARRETT FARLEY MD This examination was interpreted and the report reviewed and electronically signed by: CAMPOS YOUNG MD on Feb 04 2025 11:33AM [facility] DIVISION OF RADIOLOGY * * *Final Report* * * DATE OF EXAM: Feb 04 2025 10:17AM [facility] 0504 - CT BRAIN WO IVCON / PROCEDURE REASON: SDH (subdural hematoma) (HCC) * * * * Physician Interpretation * * * * EXAMINATION: CT BRAIN WO IVCON CLINICAL HISTORY: Subdural hematoma follow-up. TECHNIQUE: Serial axial images without IV contrast were obtained from the vertex to the foramen magnum. MQ: CTBWO_3 CT Radiation dose: Integrated Dose-Length Product (DLP) for this visit = 784 mGy*cm CT Dose Reduction Employed: Automated exposure control(AEC) and iterative recon COMPARISON: CT head 01/21/2025 RESULT: Localizer images: No additional findings. Post-operative change: None. Acute change: No evidence of an acute infarct or other acute parenchymal process. Hemorrhage: Continued interval decrease in size of right posterior parafalcine evolving subdural hemorrhage measuring 13 mm thick (TV), previously 16 mm on 01/21/2025. Near-complete resolution of subdural hematoma along the right cerebral convexity (previously 5 mmThe Mass Lesion / Mass Effect: . Associated slight interval decrease in effacement of the adjacent brain parenchyma and right lateral ventricle occipital horn. No new intracranial hemorrhage or significant midline shift. Chronic change: Patchy foci of low attenuation are present within the supratentorial white matter, a nonspecific finding that most commonly represents moderate small vessel disease. Parenchyma: There is mild to moderate generalized volume loss. Ventricles: Ventricular enlargement concordant with the degree of parenchymal volume loss. Paranasal sinuses and skull base: The visualized paranasal sinuses are grossly clear. Bilateral pseudophakia. skull base and imaged soft tissues are unremarkable. DIVISION OF RADIOLOGY Provider, [facility] [place] - 02/04/2025 * * *Final Report* * * DATE OF EXAM: Feb 04 2025 10:17AM [facility] 0504 - CT BRAIN WO IVCON / PROCEDURE REASON: SDH (subdural hematoma) (HCC) * * * * Physician Interpretation * * * * EXAMINATION: CT BRAIN WO IVCON CLINICAL HISTORY: Subdural hematoma follow-up. TECHNIQUE: Serial axial images without IV contrast were obtained from the vertex to the foramen magnum. MQ: CTBWO_3 CT Radiation dose: Integrated Dose-Length Product (DLP) for this visit = 784 mGy*cm CT Dose Reduction Employed: Automated exposure control(AEC) and iterative recon COMPARISON: CT head 01/21/2025 RESULT: Localizer images: No additional findings. Post-operative change: None. Acute change: No evidence of an acute infarct or other acute parenchymal process. Hemorrhage: Continued interval decrease in size of right posterior parafalcine evolving subdural hemorrhage measuring 13 mm thick (TV), previously 16 mm on 01/21/2025. Near-complete resolution of subdural hematoma along the right cerebral convexity (previously 5 mmThe Mass Lesion / Mass Effect: . Associated slight interval decrease in effacement of the adjacent brain parenchyma and right lateral ventricle occipital horn. No new intracranial hemorrhage or significant midline shift. Chronic change: Patchy foci of low attenuation are present within the supratentorial white matter, a nonspecific finding that most commonly represents moderate small vessel disease. Parenchyma: There is mild to moderate generalized volume loss. Ventricles: Ventricular enlargement concordant with the degree of parenchymal volume loss. Paranasal sinuses and skull base: The visualized paranasal sinuses are grossly clear. Bilateral pseudophakia. skull base and imaged soft tissues are unremarkable. IMPRESSION IMPRESSION: Interval near complete resolution of right cerebral convexity subdural hemorrhage and decrease in size of right posterior parafalcine evolving subdural hemorrhage. Improving mild residual adjacent mass effect without significant midline shift. No new intracranial hemorrhage or acute intracranial process. Hypoid Gear Tester: PSCB Transcribe Date/Time: Feb 04 2025 10:39A Dictated by : GARRETT FARLEY MD This examination was interpreted and the report reviewed and electronically signed by: CAMPOS YOUNG MD on Feb 04 2025 11:33AM EST [facility] Radiology Study observation (narrative) Kisha salomon [facility] CT Head WO contrastOrdered B y: [facility] Provider on 02-04-2025 [facility] Absolute lymphocyte countOrd ered By: Gege Duenas on 02-03-2025 Lymphocytes Auto (Unsp spec) [#/Vol] 1.80 10*3/uL 0.83-4.51 [facility] Absolute neutrophil countOrd ered By: Gege Duenas on 02-03-2025 Neutrophils (Bld) [#/Vol] 2.5 10*3/uL 2.0-7.7 [facility] Anion gap in Serum or Plasma Ordered By: Gege Valenzuelamarciapamela on 02-03-2025 Anion gap [Moles/Vol] 8 mmol/L 5-15 [facility] Automated lymphocyte count a s percentage of total leukocytesOrdered By: Gege Valenzuelamarciapamela on 02-03-2025 Lymphocytes/100 WBC Auto (Unsp spec) 35.2 % 19-41 [facility] BUN/creatinine ratioOrdered By: sherrywarren centerjavier Valenzuelamarciapamela on 02-03-2025 Urea nitrogen/Creatinine [Mass ratio] 14.8 mg/mg 10-20 [facility] Basophil percentageOrdered B y: Elyjavier Valenzuelamarciapamela on 02-03-2025 Basophils/100 WBC (Bld) 0.6 % 0-1 [facility] Carbon dioxide, total [Moles /volume] in Central venous bloodOrdered By: Gege Valenzuelamarciapamela on 02-03-2025 CO2 [Moles/Vol] 24.6 mmol/L 21.0-32.0 [facility] Chloride assayOrdered By: Cory greysonjavier Valenzuelamarciapamela on 02-03-2025 Chloride [Moles/Vol] 106 mmol/L 98-108 [facility] Eosinophil percentageOrdered By: Gloriamal Valenzuelamacriapamela on 02-03-2025 Eosinophils/100 WBC (Bld) 6.8 % High 0-5 [facility] Erythrocyte distribution wid th ratioOrdered By: Gege Duenas on 02-03-2025 Erythrocyte distribution width (RBC) [Ratio] 14.8 % High 11.6-14.6 [facility] Erythrocyte distribution wid th standard deviationOrdered By: sherrywarren centerjavier Valenzuelamarciapamela on 02-03-2025 Erythrocyte distribution width (RBC) [Ratio] 52.7 fl High 35.1-43.9 [facility] Glomerular filtration rate ( GFR) estimation/1.73 sq m using serum, plasma, or whole bOrdered By: Gege Duenas on 02-03-2025 GFR/1.73 sq M.predicted among non-blacks MDRD (S/P/Bld) [Vol rate/Area] 91 mL/min/{1.73_m2} >60 [facility] Comment on above: mL/min/1.73m2 CKD-EP I Creatinine Equation (2020) Hematocrit Auto (Bld) [Volum e fraction]Ordered By: Gege Duenas on 02-03-2025 Hematocrit (Bld) [Volume fraction] 40.8 % 40-54 [facility] Hemoglobin measurementOrdere d By: Gege Duenas on 02-03-2025 Hemoglobin (Bld) [Mass/Vol] 13.3 g/dL 13.0-16.5 [facility] Immature granulocytes/100 WB C Auto (Bld)Ordered By: Gege Duenas on 02-03-2025 Immature granulocytes/100 WBC (Bld) 0.200 % 0.0-0.9 [facility] Comment on above: IG% - Immature Granu locytes (promyelocytes, myelocytes and metamyelocytes) > 1% indicates that a LEFT SHIFT is Present. MCV (mean corpuscular volume ) determinationOrdered By: Gege Duenas on 02-03-2025 MCV (RBC) [Entitic vol] 96.2 fL High 80-94 [facility] Mean corpuscular hemoglobin (MCH) determinationOrdered By: Gege Duenas on 02-03-2025 MCH (RBC) [Entitic mass] 31.4 pg 27.0-32.0 [facility] Mean corpuscular hemoglobin concentration (MCHC) determinationOrdered By: Gege Duenas on 02-03-2025 MCHC (RBC) [Mass/Vol] 32.6 g/dL 32-36 [facility] Mean platelet volume determi nationOrdered By: Gege Duenas on 02-03-2025 Platelet mean volume (Bld) [Entitic vol] 11.9 fL 6.2-12.0 [facility] Monocyte percentageOrdered B y: Gege Duenas on 02-03-2025 Monocytes/100 WBC (Bld) 8.8 % 0-10 [facility] Neutrophil percentageOrdered By: Gege Duenas on 02-03-2025 Neutrophils/100 WBC (Bld) 48.4 % 47-70 [facility] Nucleated red blood cell per centageOrdered By: Gege Nicolasmarciapamela on 02-03-2025 Nucleated RBC/100 WBC (Bld) [Ratio] 0 % 0-5 [facility] Platelet countOrdered By: Cory adolfo Nicolasmarciapamela on 02-03-2025 Platelets (Bld) [#/Vol] 229 10*3/uL 150-450 [facility] Potassium measurement (mass/ volume)Ordered By: Gege Valenzuelamarciapamela on 02-03-2025 Potassium (Unsp spec) [Mass/Vol] 4.1 mmol/L 3.3-5.1 [facility] RBC Auto (Bld) [#/Vol]Ordere d By: Gloriaivyjavier Valenzuelamarciapamela on 02-03-2025 RBC (Bld) [#/Vol] 4.24 10*6/uL Low 4.6-6.2 [facility] Serum creatinine measurement (mass/volume)Ordered By: Gloriaivyjavier Duenas on 02-03-2025 Creatinine [Mass/Vol] 0.73 mg/dL 0.70-1.20 [facility] Serum glucose measurement (m ass/volume)Ordered By: Corysherryivyjavier Valenzuelamarciapamela on 02-03-2025 Glucose [Mass/Vol] 99 mg/dL 70-99 [facility] Serum or plasma calcium anthony urement (mass/volume)Ordered By: Corysherryivyjavier Valenzuelamarciapamela on 02-03-2025 Calcium [Mass/Vol] 9.1 mg/dL 7.6-11.0 [facility] Serum or plasma urea nitroge n measurement (mass/volume)Ordered By: Gege Duenas on 02-03-2025 Urea nitrogen [Mass/Vol] 11 mg/dL 4-19 [facility] Sodium levelOrdered By: Corysherry mal Nicolasmarciapamela on 02-03-2025 Sodium [Moles/Vol] 139 mmol/L 133-145 [facility] White blood cell (WBC) count Ordered By: Gloriaivyjavier Valenzuelamarciapamela on 02-03-2025 WBC (Bld) [#/Vol] 5.1 10*3/uL 4.4-11.0 [facility] Absolute lymphocyte countOrd ered By: Gloriaivyjavier Valenzuelamarciapamela on 01-27-2025 Lymphocytes Auto (Unsp spec) [#/Vol] 1.85 10*3/uL 0.83-4.51 [facility] Absolute neutrophil countOrd ered By: Gege Duenas on 01-27-2025 Neutrophils (Bld) [#/Vol] 2.6 10*3/uL 2.0-7.7 [facility] Anion gap in Serum or Plasma Ordered By: Gege Duenas on 01-27-2025 Anion gap [Moles/Vol] 10 mmol/L 5-15 [facility] Automated lymphocyte count a s percentage of total leukocytesOrdered By: Gege Duenas on 01-27-2025 Lymphocytes/100 WBC Auto (Unsp spec) 33.6 % 19-41 [facility] BUN/creatinine ratioOrdered By: Gege Duenas on 01-27-2025 Urea nitrogen/Creatinine [Mass ratio] 14.8 mg/mg 10-20 [facility] Basophil percentageOrdered B y: Gege Duenas on 01-27-2025 Basophils/100 WBC (Bld) 0.5 % 0-1 [facility] Carbon dioxide, total [Moles /volume] in Central venous bloodOrdered By: Gege Duenas on 01-27-2025 CO2 [Moles/Vol] 22.2 mmol/L 21.0-32.0 [facility] Chloride assayOrdered By: Cory Duenas on 01-27-2025 Chloride [Moles/Vol] 107 mmol/L 98-108 [facility] Clostridium difficile detect ion by polymerase chain reactionOrdered By: Gege Duenas on 01-27-2025 C. difficile DNA ROLANDO+probe Ql (Unsp spec) [facility] Eosinophil percentageOrdered By: Gege Duenas on 01-27-2025 Eosinophils/100 WBC (Bld) 6.9 % High 0-5 [facility] Erythrocyte distribution wid th ratioOrdered By: Gege Duenas on 01-27-2025 Erythrocyte distribution width (RBC) [Ratio] 14.7 % High 11.6-14.6 [facility] Erythrocyte distribution wid th standard deviationOrdered By: Gege Duenas on 01-27-2025 Erythrocyte distribution width (RBC) [Ratio] 49.9 fl High 35.1-43.9 [facility] Glomerular filtration rate ( GFR) estimation/1.73 sq m using serum, plasma, or whole bOrdered By: Gege Duenas on 01-27-2025 GFR/1.73 sq M.predicted among non-blacks MDRD (S/P/Bld) [Vol rate/Area] 89 mL/min/{1.73_m2} >60 [facility] Comment on above: mL/min/1.73m2 CKD-EP I Creatinine Equation (2020) Hematocrit Auto (Bld) [Volum e fraction]Ordered By: Gege Duenas on 01-27-2025 Hematocrit (Bld) [Volume fraction] 39.3 % Low 40-54 [facility] Hemoglobin measurementOrdere d By: Gege Duenas on 01-27-2025 Hemoglobin (Bld) [Mass/Vol] 12.7 g/dL Low 13.0-16.5 [facility] Immature granulocytes/100 WB C Auto (Bld)Ordered By: Gege Duenas on 01-27-2025 Immature granulocytes/100 WBC (Bld) 0.500 % 0.0-0.9 [facility] Comment on above: IG% - Immature Granu locytes (promyelocytes, myelocytes and metamyelocytes) > 1% indicates that a LEFT SHIFT is Present. MCV (mean corpuscular volume ) determinationOrdered By: Gege Duenas on 01-27-2025 MCV (RBC) [Entitic vol] 93.3 fL 80-94 [facility] Mean corpuscular hemoglobin (MCH) determinationOrdered By: sherrywarren centerjavier Duenas 01-27-2025 MCH (RBC) [Entitic mass] 30.2 pg 27.0-32.0 [facility] Mean corpuscular hemoglobin concentration (MCHC) determinationOrdered By: sherrywarren centerjavier Duenas 01-27-2025 MCHC (RBC) [Mass/Vol] 32.3 g/dL 32-36 [facility] Mean platelet volume determi nationOrdered By: Gloriaivyjavier Valenzuelamarciapamela on 01-27-2025 Platelet mean volume (Bld) [Entitic vol] 11.5 fL 6.2-12.0 [facility] Monocyte percentageOrdered B y: Corysherryivyjavier Valenzuelamarciapamela on 01-27-2025 Monocytes/100 WBC (Bld) 12.0 % High 0-10 [facility] Neutrophil percentageOrdered By: Coryadolfo Valenzuelamarciapamela on 01-27-2025 Neutrophils/100 WBC (Bld) 46.5 % Low 47-70 [facility] Nucleated red blood cell per centageOrdered By: Corysherryivyjavier Valenzuelamarciapamela on 01-27-2025 Nucleated RBC/100 WBC (Bld) [Ratio] 0 % 0-5 [facility] Platelet countOrdered By: Cory greysonjavier Duenas on 01-27-2025 Platelets (Bld) [#/Vol] 301 10*3/uL 150-450 [facility] Potassium measurement (mass/ volume)Ordered By: Gege Duenas on 01-27-2025 Potassium (Unsp spec) [Mass/Vol] 4.5 mmol/L 3.3-5.1 [facility] Comment on above: Hemolysis present, R esults could be affected. RBC Auto (Bld) [#/Vol]Ordere d By: Gege Duenas on 01-27-2025 RBC (Bld) [#/Vol] 4.21 10*6/uL Low 4.6-6.2 [facility] Serum creatinine measurement (mass/volume)Ordered By: Gege Duenas on 01-27-2025 Creatinine [Mass/Vol] 0.80 mg/dL 0.70-1.20 [facility] Serum glucose measurement (m ass/volume)Ordered By: Gege Duenas on 01-27-2025 Glucose [Mass/Vol] 107 mg/dL High 70-99 [facility] Serum or plasma calcium anthony urement (mass/volume)Ordered By: Gege Duenas on 01-27-2025 Calcium [Mass/Vol] 9.3 mg/dL 7.6-11.0 [facility] Serum or plasma urea nitroge n measurement (mass/volume)Ordered By: Gege Duenas on 01-27-2025 Urea nitrogen [Mass/Vol] 12 mg/dL 4-19 [facility] Sodium levelOrdered By: Gloria Duenas on 01-27-2025 Sodium [Moles/Vol] 139 mmol/L 133-145 [facility] White blood cell (WBC) count Ordered By: Gege Duenas on 01-27-2025 WBC (Bld) [#/Vol] 5.5 10*3/uL 4.4-11.0 [facility] CNOVon 01-21-2025 CNOV Office Visit ([facility]AGCLM) SUNG YAÑEZ ([id number]) 1940 M Date Time Provider Department 01/21/25 9:45 AM MIKE PADILLA NEAGCLM During your visit today, we recorded the following information about you: Pulse Respiration Blood pressure 102/minute 16/minute 126/81 Tatiana Santos APRN.TEXTILE ENGINEER 01/21/2025 9:32 AM Addendum OK to resume blood thinning medications (Xeralto) Follow up CT brain in 2 weeks at [place]. Follow up via telephone. Mike Padilla MD 01/21/2025 9:49 AM Signed NEUROSURGERY FOLLOW UP OFFICE NOTE Dr. Mike Padilla MD, FACS Date of visit: January 21, 2025 Patient Name: Mr.Kenneth Pamela Yañez Date of : 1940 Current Age: [age] year old Sex: male MRN/E# [id number] Last Office Visit: Hospital follow up CHIEF COMPLAINT: Patient presents with: Established Patient SUBJECTIVE: The patient presents as a hospital follow up with imaging (CT B) for evaluation. This is an 84-year-old male with a PMHx of atrial fibrillation (Xarelto), HTN who was seen for consult at [facility] after transfer from an OSH on 12/23/[address] Coppola. The patient presented after a GLF causing him to strike the back of his head. Workup was completed and showed a large right falcine SDH with mass effect and a right subacute/small acute convexity SDH. Xarelto was placed on hold and reversed with Kcentra and he was transferred to [facility] for higher acuity care. No emergent neurosurgical intervention was indicated. He was started on Keppra for seizure prophylaxis. He was monitored in the ICU with frequent neurochecks and serial imaging. NIL was consulted for possible embolization. He developed weakness on the left side but wanted to hold off on any surgery. Serial imaging was obtained and stabilized. No neurosurgical intervention was ultimately warranted. Once medically stable he was cleared for acute rehab with recommendation to hold all blood thinning medications. He was cleared for heparin subcu for DVT prophylaxis. Recommendation was to follow-up in the outpatient setting with a repeat CT for continued monitoring. While in rehab a CT of the head was obtained on 01/15/2025. The facility is attending physician, Dr. Kelly contacted me and reported that there was interval improvement in the right falx/tentorial subdural hematoma and no evidence of acute hemorrhage. 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 Recommendation was for him to follow-up in 3 to 4 days in the neurosurgery outpatient setting with a repeat CT to evaluate prompting his visit today. He states he is doing fair. Reports that he has not had much rehab due to a few setbacks. He does not think that he had resumed his Xeralto. He continues with left sided weakness with the left leg worse than the arm. He presents for image review, evaluation and plan of care. MEDICATIONS: Keppra: Short course Dexamethasone: No SYMPTOMS: Left sided weakness PREVIOUS CONSERVATIVE TREATMENTS: None SURGICAL RISK: Smoker: Never Diabetic: No Anticoagulants / Antiplatelets: Xarelto Occupation: N/A PREVIOUS NEUROSURGERY: None PAIN EVALUATION No data found in the last 1 encounters. PAST MEDICAL HISTORY Diagnosis Date BPH (benign prostatic hyperplasia) Diverticulosis of colon (without mention of hemorrhage) H/O degenerative disc disease Melanoma (HCC) Unspecified essential hypertension PAST SURGICAL HISTORY Procedure Laterality Date COLONOSCOPY FLX DX W/COLLJ SPEC WHEN PFRMD 09/17/03 Colonoscopy COLONOSCOPY FLX DX W/COLLJ SPEC WHEN PFRMD 06/02/2010 Colonoscopy PAST SURGICAL HISTORY OF 05/04 prostate surgery TONSILLECTOMY PRIMARY/SECONDARY Tonsillectomy FAMILY HISTORY Problem Relation Age of Onset Colon Cancer Father ALLERGIES No Known Allergies Current Outpatient Medications Medication Sig Dispense Refill bisacodyl (DULCOLAX) 10 mg supp 10 mg by RECTAL route once daily as needed for constipation. magnesium hydroxide (MOM) 400 mg/5 mL suspension Take 30 mL by mouth once daily as needed for constipation. mirtazapine (REMERON) 15 mg tablet Take 15 mg by mouth daily at bedtime. gabapentin (NEURONTIN) 100 mg capsule Take 100 mg by mouth three times a day. magnesium chloride 64 mg magnesium tab Take by mouth. Menthol-Zinc Oxide (CALMOSEPTINE) 0.44-20.6 % Apply to affected area. senna-docusate (SENNA-S) 8.6-50 mg per tablet Take 1 tablet by mouth once daily. pantoprazole (PROTONIX) 40 mg grps Take 40 mg by mouth daily at 6 am. saliva substitute combo no.9 (BIOTENE DRY MOUTH ORAL RINSE) mwsh Use 15 mL as instructed. emollient combination no.119 (EUCERIN ADVANCED RE (more content not included)... [facility] SUNG YAÑEZ ([id number]) 1940 M Date Time Provider Department 01/21/25 TATIANA SANTOS During your visit today, we recorded the following information about you: Tatiana Santos APRN.TEXTILE ENGINEER 01/21/2025 12:26 PM Signed Returned call to Esme who is caring for Sung at rehab. She left a voice message asking what dosage of Xarelto to start the patient on. I contacted her and told her that this is not a medication that has been prescribed or managed by neurosurgery. The patient was transferred to [facility] from [facility] and the medication had been stopped prior to his discharge and therefore the dosage is not known. She stated that she will contact the nurse practitioner at the rehab facility for further instruction. Tatiana Santos APRN-GABINO Neurosurgery Nurse Practitioner [facility] 12:26 PM 01/21/2025 Allergies As of Date: 01/21/2025 (No Known Allergies) Date Reviewed: 01/21/2025 Reviewed by: Mike Padilla MD - Fully Assessed Reason for Visit: Returning Patient's Call [[id number]] Prescriptions as of 01/21/2025 - bisacodyl (DULCOLAX) 10 mg supp 10 mg by RECTAL route once daily as needed for constipation. - magnesium hydroxide (MOM) 400 mg/5 mL suspension Take 30 mL by mouth once daily as needed for constipation. - mirtazapine (REMERON) 15 mg tablet Take 15 mg by mouth daily at bedtime. - gabapentin (NEURONTIN) 100 mg capsule Take 100 mg by mouth three times a day. - magnesium chloride 64 mg magnesium tab Take by mouth. - Menthol-Zinc Oxide (CALMOSEPTINE) 0.44-20.6 % Apply to affected area. - senna-docusate (SENNA-S) 8.6-50 mg per tablet Take 1 tablet by mouth once daily. - pantoprazole (PROTONIX) 40 mg grps Take 40 mg by mouth daily at 6 am. - saliva substitute combo no.9 (BIOTENE DRY MOUTH ORAL RINSE) mwsh Use 15 mL as instructed. - emollient combination no.119 (EUCERIN ADVANCED REPAIR) crea Apply to affected area. - sodium chloride soluble tablet 1 g Take 1 g by mouth three times a day. - metoprolol succinate ER (TOPROL XL) 50 mg 24 hr tablet Take 50 mg by mouth once daily. - acetaminophen (TYLENOL EXTRA STRENGTH) 500 mg tablet Take 500 mg by mouth every 8 hours as needed for pain. - oxyCODONE IR (ROXICODONE) 5 mg immediate release tablet Take 5 mg by mouth every 6 hours as needed for pain. - metoprolol succinate ER (TOPROL XL) 25 mg 24 hr tablet Take 25 mg by mouth once daily. Problem List As Of Date 01/21/2025 Noted Resolved Family history of malignant neoplasm of gastroi* SDH (subdural hematoma) (HCC) [S06.5XAA] 12/23/2024 Trauma [T14.90XA] 12/23/2024 Fall [W19.XXXA] 12/23/2024 Current use of buttermaker anticoagulation [Z79.0*12/23/2024 Scalp abrasion [S00.01XA] 12/23/2024 Neuropathy [G62.9] 12/23/2024 Left leg weakness [R29.898] 12/23/2024 Primary hypertension [I10] 12/23/2024 Chronic atrial fibrillation (HCC) [I48.20] 12/23/2024 Acute left hemiparesis (HCC) [G81.94] 12/25/2024 Encounter Status:Closed by TATIANA SANTOS on 01/21/[address] [facility] [address] BRAIN WO IVCONon 01-22-20 CT BRAIN WO IVCON * * *Final Report* * * DATE OF EXAM: Jan 21 2025 8:49AM A1C 0504 - CT BRAIN WO IVCON / PROCEDURE REASON: multiple diagnoses * * * * Physician Interpretation * * * * EXAMINATION: CT BRAIN WO IVCON CLINICAL HISTORY: Follow-up subdural hemorrhage. TECHNIQUE: Serial axial images without IV contrast were obtained from the vertex to the foramen magnum. MQ: CTBWO_3 CT Radiation dose: Integrated Dose-Length Product (DLP) for this visit = 794.52 mGy*cm CT Dose Reduction Employed: No dose reduction techniques were required COMPARISON: Outside hospital CT brain on 01/15/2025. MRI brain on 12/26/2024. 12/26/2024. RESULT: Acute change: No evidence of an acute infarct or other acute parenchymal process. Hemorrhage: Interval decrease in the size of subdural hemorrhage along the right cerebral convexity currently measuring 5 mm in thickness. Interval decrease in density and size of the right posterior parafalcine the subdural hemorrhage currently measuring 15 mm in thickness (previously 16 mm). Mild mass effect on the adjacent brain parenchyma. No CT evidence of new intracranial hemorrhage. Mass Lesion / Mass Effect: No significant midline shift. Chronic change: Patchy foci of low attenuation are present within the supratentorial white matter, a nonspecific finding that most commonly represents moderate small vessel disease. Parenchyma: There is moderate generalized volume loss. Ventricles: Ventricular enlargement concordant with the degree of parenchymal volume loss. Paranasal sinuses and skull base: The visualized paranasal sinuses are grossly clear. The skull base and imaged soft tissues are unremarkable. IMPRESSION: 1. Interval decrease in the size and density of right posterior parafalcine subdural hemorrhage. 2. Interval decrease in size and density of right cerebral convexity subdural hemorrhage. Mild mass effect on the adjacent cerebral cortex. 3. No CT evidence of new intracranial hemorrhage. No significant midline shift. Hypoid Gear Tester: PON[facility] Transcribe Date/Time: Jan 21 2025 1:12P Dictated by : IVORY MARTINEZ MD This examination was interpreted and the report reviewed and electronically signed by: IVORY MARTINEZ MD on Jan 21 2025 1:21PM EST [id number] CN [facility] CT Head WO contraston 2024 IMPRESSION: 1. Interval decrease in the size and density of right posterior parafalcine subdural hemorrhage. 2. Interval decrease in size and density of right cerebral convexity subdural hemorrhage. Mild mass effect on the adjacent cerebral cortex. 3. No CT evidence of new intracranial hemorrhage. No significant midline shift. Hypoid Gear Tester: [facility] Transcribe Date/Time: Jan 21 2025 1:12P Dictated by : IVORY MARTINEZ MD This examination was interpreted and the report reviewed and electronically signed by: IVORY MARTINEZ MD on Jan 21 2025 1:21PM EST [facility] * * *Final Report* * * DATE OF EXAM: Jan 21 2025 8:49AM A1C 0504 - CT BRAIN WO IVCON / PROCEDURE REASON: multiple diagnoses * * * * Physician Interpretation * * * * EXAMINATION: CT BRAIN WO IVCON CLINICAL HISTORY: Follow-up subdural hemorrhage. TECHNIQUE: Serial axial images without IV contrast were obtained from the vertex to the foramen magnum. MQ: CTBWO_3 CT Radiation dose: Integrated Dose-Length Product (DLP) for this visit = 794.52 mGy*cm CT Dose Reduction Employed: No dose reduction techniques were required COMPARISON: Outside hospital CT brain on 01/15/2025. MRI brain on 12/26/2024. 12/26/2024. RESULT: Acute change: No evidence of an acute infarct or other acute parenchymal process. Hemorrhage: Interval decrease in the size of subdural hemorrhage along the right cerebral convexity currently measuring 5 mm in thickness. Interval decrease in density and size of the right posterior parafalcine the subdural hemorrhage currently measuring 15 mm in thickness (previously 16 mm). Mild mass effect on the adjacent brain parenchyma. No CT evidence of new intracranial hemorrhage. Mass Lesion / Mass Effect: No significant midline shift. Chronic change: Patchy foci of low attenuation are present within the supratentorial white matter, a nonspecific finding that most commonly represents moderate small vessel disease. Parenchyma: There is moderate generalized volume loss. Ventricles: Ventricular enlargement concordant with the degree of parenchymal volume loss. Paranasal sinuses and skull base: The visualized paranasal sinuses are grossly clear. The skull base and imaged soft tissues are unremarkable. [employer] [facility] Provider, [facility] [place] - 01/21/2025 * * *Final Report* * * DATE OF EXAM: Jan 21 2025 8:49AM A1C 0504 - CT BRAIN WO IVCON / PROCEDURE REASON: multiple diagnoses * * * * Physician Interpretation * * * * EXAMINATION: CT BRAIN WO IVCON CLINICAL HISTORY: Follow-up subdural hemorrhage. TECHNIQUE: Serial axial images without IV contrast were obtained from the vertex to the foramen magnum. MQ: CTBWO_3 CT Radiation dose: Integrated Dose-Length Product (DLP) for this visit = 794.52 mGy*cm CT Dose Reduction Employed: No dose reduction techniques were required COMPARISON: Outside hospital CT brain on 01/15/2025. MRI brain on 12/26/2024. 12/26/2024. RESULT: Acute change: No evidence of an acute infarct or other acute parenchymal process. Hemorrhage: Interval decrease in the size of subdural hemorrhage along the right cerebral convexity currently measuring 5 mm in thickness. Interval decrease in density and size of the right posterior parafalcine the subdural hemorrhage currently measuring 15 mm in thickness (previously 16 mm). Mild mass effect on the adjacent brain parenchyma. No CT evidence of new intracranial hemorrhage. Mass Lesion / Mass Effect: No significant midline shift. Chronic change: Patchy foci of low attenuation are present within the supratentorial white matter, a nonspecific finding that most commonly represents moderate small vessel disease. Parenchyma: There is moderate generalized volume loss. Ventricles: Ventricular enlargement concordant with the degree of parenchymal volume loss. Paranasal sinuses and skull base: The visualized paranasal sinuses are grossly clear. The skull base and imaged soft tissues are unremarkable. IMPRESSION IMPRESSION: 1. Interval decrease in the size and density of right posterior parafalcine subdural hemorrhage. 2. Interval decrease in size and density of right cerebral convexity subdural hemorrhage. Mild mass effect on the adjacent cerebral cortex. 3. No CT evidence of new intracranial hemorrhage. No significant midline shift. Hypoid Gear Tester: [facility] Transcribe Date/Time: Jan 21 2025 1:12P Dictated by : IVORY MARTINEZ MD This examination was interpreted and the report reviewed and electronically signed by: IVORY MARTINEZ MD on Jan 21 2025 1:21PM EST [facility] Radiology Study observation (narrative) [facility] CT Head WO contrastOrdered B y: [facility] Provider on 01-21-2025 [facility] Absolute lymphocyte countOrd ered By: Gege Duenas on 01-20-2025 Lymphocytes Auto (Unsp spec) [#/Vol] 1.58 10*3/uL 0.83-4.51 [facility] Absolute neutrophil countOrd ered By: Gege Duenas on 01-20-2025 Neutrophils (Bld) [#/Vol] 4.0 10*3/uL 2.0-7.7 [facility] Anion gap in Serum or Plasma Ordered By: Gege Duenas on 01-20-2025 Anion gap [Moles/Vol] 11 mmol/L 5-15 [facility] Automated lymphocyte count a s percentage of total leukocytesOrdered By: Gege Duenas on 01-20-2025 Lymphocytes/100 WBC Auto (Unsp spec) 23.5 % 19-41 [facility] BUN/creatinine ratioOrdered By: Gege Duenas on 01-20-2025 Urea nitrogen/Creatinine [Mass ratio] 28.1 mg/mg High 10-20 [facility] Basophil percentageOrdered B y: Gege Duenas on 01-20-2025 Basophils/100 WBC (Bld) 0.4 % 0-1 [facility] Calculated very low density lipoprotein (VLDL) cholesterol measurementOrdered By: Gege Duenas on 01-20-2025 Calculated very low density lipoprotein (VLDL) cholesterol measurement 22 mg/dL 5-40 [facility] [facility] Carbon dioxide, total [Moles /volume] in Central venous bloodOrdered By: Gege Duenas on 01-20-2025 CO2 [Moles/Vol] 22.1 mmol/L 21.0-32.0 [facility] Chloride assayOrdered By: Cory Duenas on 01-20-2025 Chloride [Moles/Vol] 105 mmol/L 98-108 [facility] Eosinophil percentageOrdered By: sherrywarren centerjavier Duenas on 01-20-2025 Eosinophils/100 WBC (Bld) 6.1 % High 0-5 [facility] Erythrocyte distribution wid th ratioOrdered By: Gege Duenas on 01-20-2025 Erythrocyte distribution width (RBC) [Ratio] 13.6 % 11.6-14.6 [facility] Erythrocyte distribution wid th standard deviationOrdered By: Gege Duenas on 01-20-2025 Erythrocyte distribution width (RBC) [Ratio] 46.1 fl High 35.1-43.9 [facility] Glomerular filtration rate ( GFR) estimation/1.73 sq m using serum, plasma, or whole bOrdered By: Gege Duenas on 01-20-2025 GFR/1.73 sq M.predicted among non-blacks MDRD (S/P/Bld) [Vol rate/Area] 95 mL/min/{1.73_m2} >60 [facility] Comment on above: mL/min/1.73m2 CKD-EP I Creatinine Equation (2020) Hematocrit Auto (Bld) [Volum e fraction]Ordered By: Gege Duenas on 01-20-2025 Hematocrit (Bld) [Volume fraction] 38.9 % Low 40-54 [facility] Hemoglobin measurementOrdere d By: Gege Duenas on 01-20-2025 Hemoglobin (Bld) [Mass/Vol] 12.7 g/dL Low 13.0-16.5 [facility] Immature granulocytes/100 WB C Auto (Bld)Ordered By: Gege Duenas on 01-20-2025 Immature granulocytes/100 WBC (Bld) 0.700 % 0.0-0.9 [facility] Comment on above: IG% - Immature Granu locytes (promyelocytes, myelocytes and metamyelocytes) > 1% indicates that a LEFT SHIFT is Present. LDL calc ser/plasOrdered By: Gege Duenas on 01-20-2025 Cholesterol in LDL [Mass/Vol] 85 mg/dL [facility] Comment on above: Bejuzjebni=882-141 m g/dL & Higher Opvv=734 mg/dL or greaterFriedwald Equation for LDL-C MCV (mean corpuscular volume ) determinationOrdered By: Gege Duenas on 01-20-2025 MCV (RBC) [Entitic vol] 92.8 fL 80-94 [facility] Mean corpuscular hemoglobin (MCH) determinationOrdered By: Gege Duenas on 01-20-2025 MCH (RBC) [Entitic mass] 30.3 pg 27.0-32.0 [facility] Mean corpuscular hemoglobin concentration (MCHC) determinationOrdered By: Gege Duenas on 01-20-2025 MCHC (RBC) [Mass/Vol] 32.6 g/dL 32-36 [facility] Mean platelet volume determi nationOrdered By: Gege Duenas on 01-20-2025 Platelet mean volume (Bld) [Entitic vol] 12.4 fL High 6.2-12.0 [facility] Monocyte percentageOrdered B y: Gege Duenas on 01-20-2025 Monocytes/100 WBC (Bld) 9.2 % 0-10 [facility] Neutrophil percentageOrdered By: Gege Duenas on 01-20-2025 Neutrophils/100 WBC (Bld) 60.1 % 47-70 [facility] Nucleated red blood cell per centageOrdered By: Gege Duenas on 01-20-2025 Nucleated RBC/100 WBC (Bld) [Ratio] 0 % 0-5 [facility] Platelet countOrdered By: Cory greysonjavier Duenas on 01-20-2025 Platelets (Bld) [#/Vol] 182 10*3/uL 150-450 [facility] Potassium measurement (mass/ volume)Ordered By: Gege Duenas on 01-20-2025 Potassium (Unsp spec) [Mass/Vol] 4.0 mmol/L 3.3-5.1 [facility] RBC Auto (Bld) [#/Vol]Ordere d By: Gege Duenas on 01-20-2025 RBC (Bld) [#/Vol] 4.19 10*6/uL Low 4.6-6.2 [facility] Screening total cholesterol/ high density lipoprotein (HDL) cholesterol ratioOrdered By: Gege Duenas on 01-20-2025 Cholesterol.total/Choles terol in HDL [Mass ratio] 4.38 {ratio} [facility] Serum creatinine measurement (mass/volume)Ordered By: Gege Duenas on 01-20-2025 Creatinine [Mass/Vol] 0.63 mg/dL Low 0.70-1.20 [facility] Serum glucose measurement (m ass/volume)Ordered By: Gege Duenas on 01-20-2025 Glucose [Mass/Vol] 101 mg/dL High 70-99 [facility] Serum or plasma calcium anthony urement (mass/volume)Ordered By: Gege Duenas on 01-20-2025 Calcium [Mass/Vol] 9.1 mg/dL 7.6-11.0 [facility] Serum or plasma cholesterol in HDL measurement (mass/volume)Ordered By: Gege Duenas on 01-20-2025 Cholesterol in HDL [Mass/Vol] 32 mg/dL Low >40 [facility] Comment on above: National Cholesterol Education Program (NCEP) guidelines:<40 mg/dL: Low HDL-cholesterol (major risk factor for CHD)>= 60 mg/dL: High HDL-cholesterol (negative risk factor for CHD)HDL-cholesterol is affected by a number of factors, e.g. smoking, exercise, hormones, sex and age. Serum or plasma cholesterol measurement (mass/volume)Ordered By: Gege Duenas on 01-20-2025 Cholesterol [Mass/Vol] 139 mg/dL <201 [facility] Comment on above: Cholesterol level, D esirable <200 mg/dLBorderline high cholesterol 200-239 mg/dLHigh cholesterol >=240 mg/dLRecommendations of the NCEP Adult Treatment Panel for the following risk-cutoff thresholds for the [place] population. Serum or plasma urea nitroge n measurement (mass/volume)Ordered By: Gege Duenas on 01-20-2025 Urea nitrogen [Mass/Vol] 18 mg/dL 4-19 [facility] Sodium levelOrdered By: Gloria espinozapaolapamela Duenas on 01-20-2025 Sodium [Moles/Vol] 138 mmol/L 133-145 [facility] Triglycerides measurementOrd ered By: Gege Duenas on 01-20-2025 Triglyceride [Mass/Vol] 110 mg/dL <199 [facility] Comment on above: The drugs N-Acetylcy steine and Metamizole may falsely depress this assay. Normal range: <150 mg/dLBorderline High: 150-199 mg/dLHigh: 200-499 mg/dLVery High: >500 mg/dL White blood cell (WBC) count Ordered By: Gege Duenas on 01-20-2025 WBC (Bld) [#/Vol] 6.7 10*3/uL 4.4-11.0 [facility] CNPNon 01-17-2025 [facility] Telephone ([facility]) SUNG YAÑEZ ([id number]) 1940 M Date Time Provider Department 01/17/25 MIKE PADILLA NEAGC During your visit today, we recorded the following information about you: Michelle Gale 01/17/2025 1:47 PM Signed Voicemail left for transportation department at [facility] regarding follow up and CT scan appointments on 01/21. Contact information left for a return call to confirm. Michelle Gale Allergies As of Date: 01/17/2025 (No Known Allergies) Date Reviewed: 12/28/2024 Reviewed by: Arnulfo Crowley, RN - Fully Assessed Reason for Visit: Appointment [186] Prescriptions as of 01/17/2025 - MAGNESIUM GLYCINATE PO Take 200 mg by mouth once daily. - metoprolol succinate ER (TOPROL XL) 50 mg 24 hr tablet Take 50 mg by mouth once daily. - lisinopril (ZESTRIL) 20 mg tablet Take 20 mg by mouth once daily. Problem List As Of Date 01/17/2025 Noted Resolved Family history of malignant neoplasm of gastroi* SDH (subdural hematoma) (HCC) [S06.5XAA] 12/23/2024 Trauma [T14.90XA] 12/23/2024 Fall [W19.XXXA] 12/23/2024 Current use of group home anticoagulation [Z79.0*12/23/2024 Scalp abrasion [S00.01XA] 12/23/2024 Neuropathy [G62.9] 12/23/2024 Left leg weakness [R29.898] 12/23/2024 Primary hypertension [I10] 12/23/2024 Chronic atrial fibrillation (HCC) [I48.20] 12/23/2024 Acute left hemiparesis (HCC) [G81.94] 12/25/2024 Encounter Status:Closed by MICHELLE GALE on 01/17/25 [facility] CNPN Telephone ([facility]) SUNG YAÑEZ ([id number]) 1940 M Date Time Provider Department 01/17/25 TATIANA SANTOSLM During your visit today, we recorded the following information about you: Tatiana Santos APRN.GABINO 01/17/2025 11:24 AM Signed Returned call to Dr. Iman Kelly ([phone]). She spoke with me and Dr. Padilla via speaker phone to discuss the patients recent CT B results. She was concerned that there was evidence of a new ischemic stroke. She stated that the CT appeared to be improving in regard to th bleed and that it had decreased in size and density. She asked if it was ok to resume AC/AP. Dr. Padilla cleared the patient to resume blood thinners given his cardiac history, A-fib. He asked that Sung be transferred to the office for a repeat CT B and evaluation on Monday01/21/25 and to monitor for any new bleeding following the resumption of blood thinners. She agreed to have him transferred for a visit. Tatiana Santos APRN-[facility] Neurosurgery Nurse Practitioner [facility] 11:23 AM 01/17/2025 Allergies As of Date: 01/17/2025 (No Known Allergies) Date Reviewed: 12/28/2024 Reviewed by: Arnulfo Crowley, LINH - Fully Assessed Reason for Visit: Patient Update [1234] Prescriptions as of 01/17/2025 - MAGNESIUM GLYCINATE PO Take 200 mg by mouth once daily. - metoprolol succinate ER (TOPROL XL) 50 mg 24 hr tablet Take 50 mg by mouth once daily. - lisinopril (ZESTRIL) 20 mg tablet Take 20 mg by mouth once daily. Problem List As Of Date 01/17/2025 Noted Resolved Family history of malignant neoplasm of gastroi* SDH (subdural hematoma) (HCC) [S06.5XAA] 12/23/2024 Trauma [T14.90XA] 12/23/2024 Fall [W19.XXXA] 12/23/2024 Current use of group home anticoagulation [Z79.0*12/23/2024 Scalp abrasion [S00.01XA] 12/23/2024 Neuropathy [G62.9] 12/23/2024 Left leg weakness [R29.898] 12/23/2024 Primary hypertension [I10] 12/23/2024 Chronic atrial fibrillation (HCC) [I48.20] 12/23/2024 Acute left hemiparesis (HCC) [G81.94] 12/25/2024 Encounter Status:Closed by TATIANA SANTOS on 01/17/25 Normal [facility] Anion gap in Serum or Plasma Ordered By: Savanna Kelly on 01-15-2025 Anion gap [Moles/Vol] 10 mmol/L 5-15 [facility] BUN/creatinine ratioOrdered By: Savanna Kelly on 01-15-2025 Urea nitrogen/Creatinine [Mass ratio] 38.2 mg/mg High 10-20 [facility] Bilirubin, totalOrdered By: Savanna Kelly on 01-15-2025 Bilirubin [Mass/Vol] 0.78 mg/dL 0.00-1.30 [facility] Brain/Head without Contrasto n 01-15-2025 Brain/Head without Contrast [facility] Imaging Services [address] [place] [id number] Brain/Head without Contrast MR#: [id number] Acct: [id number] Name: SUNG YAÑEZ Rep #: [id number] : 1940 M 84 From: Nona Giordano nd, MD PCP: Dr. Briseida Vergara MD Status: ADM IN Study: Brain/Head without Contrast Date of Exam: 12/25 09/17 Exam# [id number] Ordering Dr: Savanna Kelly DO EXAM: BRAIN/HEAD WITHOUT CONTRAST CLINICAL HISTORY: 84 y/o M with CEPHALGIA. COMPARISON: CT head, CTA head and neck 12/23/2024. TECHNIQUE: Routine CT imaging of the head without IV contrast. Additional multiplanar reformats were obtained. Dose reduction techniques were used including intermediate exposure control (AEC),iterative reconstruction technique, and/or mA and/or KV dose adjustments based on patient's size. 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 There is mild associated mass effect upon the posterior limb of the right lateral ventricle, which is unchanged. No new or enlarging acute intracranial hemorrhage. 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 Mild scattered supratentorial white matter hypodensities. Lacunar type infarct within the right basal ganglia. Mild generalized cerebral volume loss with concordant prominence of the ventricles and subarachnoid spaces. Prior ocular lens replacements. The visualized paranasal sinuses and mastoids are unremarkable. No acute calvarial fracture or scalp hematoma. CT/Brain/Head without Contrast IMPRESSION: 1. No new or enlarging acute intracranial finding. 2. Interval improvement in the right falx/tentorial subdural hematoma as described. 3. Additional chronic findings as described. Reading Location: [id number] CC: Dr. Briseida Vergara MD; Dr. Savanna Kelly DO Hypoid Gear Tester: Signed Normal [facility] CBC-Complete Blood Cnt No Di ffon 01-15-2025 Erythrocyte distribution width (RBC) [Ratio] 13.8 % Normal 11.6-14.6 [facility] Comment on above: Performed By: #### L 100.0500 #### [facility] [address] [place], [address] Hematocrit (Bld) [Volume fraction] 39.0 % Low 40-54 [facility] Comment on above: Performed By: #### L 100.0500 #### [facility] [address] [place], [address] Hemoglobin (Bld) [Mass/Vol] 13.2 g/dL Normal 13.0-16.5 [facility] Comment on above: Performed By: #### L 100.0500 #### [facility] [address] [place], [address] MCH (RBC) [Entitic mass] 30.8 pg Normal 27.0-32.0 [facility] Comment on above: Performed By: #### L 100.0500 #### [facility] [address] [place], [address] MCHC (RBC) [Mass/Vol] 33.8 g/dL Normal 32-36 [facility] Comment on above: Performed By: #### L 100.0500 #### [facility] [address] [place], [address] MCV (RBC) [Entitic vol] 91.1 fL Normal 80-94 [facility] Comment on above: Performed By: #### L 100.0500 #### [facility] [address] [place], [address] Platelet mean volume (Bld) [Entitic vol] 11.7 fL Normal 6.2-12.0 [facility] Comment on above: Performed By: #### L 100.0500 #### [facility] [address] [place], [address] Platelets (Bld) [#/Vol] 194 10*3/uL Normal 150-450 [facility] Comment on above: Performed By: #### L 100.0500 #### [facility] [address] [place], [address] RBC (Bld) [#/Vol] 4.28 10*6/uL Low 4.6-6.2 [facility] Comment on above: Performed By: #### L 100.0500 #### [facility] [address] [place], [address] RDW SD 46.2 fl High 35.1-43.9 [facility] Comment on above: Performed By: #### L 100.0500 #### [facility] [address] [place], [address] WBC (Bld) [#/Vol] 7.0 10*3/uL Normal 4.4-11.0 [facility] Comment on above: Performed By: #### L 100.0500 #### [facility] [address] [place], [place], [address] Carbon dioxide, total [Moles /volume] in Central venous bloodOrdered By: Savanna Kelly on 01-15-2025 CO2 [Moles/Vol] 20.7 mmol/L Low 21.0-32.0 [facility] Chloride assayOrdered By: Bnonie Kelly on 01-15-2025 Chloride [Moles/Vol] 103 mmol/L 98-108 [facility] Comprehensive Metabolic Prof ilon 01-15-2025 Albumin [Mass/Vol] 3.1 g/dL Low 3.4-4.8 [facility] Comment on above: Performed By: #### L 100.0500 #### [facility] [address] [place], [address] Albumin/Globulin [Mass ratio] 1.0 {ratio} Normal 0.9-2.4 [facility] Comment on above: Performed By: #### L 100.0500 #### [facility] [address] [place], [address] ALK PHOS 144 U/L High 40-129 [facility] Comment on above: Performed By: #### L 100.0500 #### [facility] [address] [place], [address] ALT [Catalytic activity/Vol] 22 U/L Normal <=46 [facility] Comment on above: Performed By: #### L 100.0500 #### [facility] [address] [place], [address] AST [Catalytic activity/Vol] 32 U/L Normal <=37 [facility] Comment on above: Performed By: #### L 100.0500 #### [facility] [address] [place], [address] Bilirubin [Mass/Vol] 0.78 mg/dL Normal 0.00-1.30 [facility] Comment on above: Performed By: #### L 100.0500 #### [facility] [address] [place], [address] BUN/CRE 38.2 RATIO High 10-20 [facility] Comment on above: Performed By: #### L 100.0500 #### [facility] [address] [place], [address] Calcium [Mass/Vol] 9.1 mg/dL Normal 7.6-11.0 [facility] Comment on above: Performed By: #### L 100.0500 #### [facility] [address] [place], [address] Chloride [Moles/Vol] 103 mmol/L Normal 98-108 [facility] Comment on above: Performed By: #### L 100.0500 #### [facility] [address] [place], [address] CO2 [Moles/Vol] 20.7 mmol/L Low 21.0-32.0 [facility] Comment on above: Performed By: #### L 100.0500 #### [facility] [address] [place], [address] Creatinine [Mass/Vol] 0.73 mg/dL Normal 0.70-1.20 [facility] Comment on above: Performed By: #### L 100.0500 #### [facility] [address] [place], [address] ECRCL 85.09 ml/min Normal 50-250 [facility] Comment on above: Performed By: #### L 100.0500 #### [facility] [address] [place], [address] GAP 10 Normal 5-15 [facility] Comment on above: Performed By: #### L 100.0500 #### [facility] [address] [place], [address] GFR/1.73 sq M.predicted among non-blacks MDRD (S/P/Bld) [Vol rate/Area] 91 mL/min/{1.73_m2} Normal >60 [facility] Comment on above: Result Comment: mL/m in/1.73m2 CKD-EPI Creatinine Equation (2020) Performed By: #### L 100.0500 #### [facility] [address] [place], [address] Globulin (S) [Mass/Vol] 3.1 g/dL Normal 2.2-4.2 [facility] Comment on above: Performed By: #### L 100.0500 #### [facility] [address] [place], [address] Glucose [Mass/Vol] 105 mg/dL High 70-99 [facility] Comment on above: Performed By: #### L 100.0500 #### [facility] [address] [place], [address] Potassium [Moles/Vol] 4.4 mmol/L Normal 3.3-5.1 [facility] Comment on above: Performed By: #### L 100.0500 #### [facility] [address] [place], [address] Sodium [Moles/Vol] 134 mmol/L Normal 133-145 [facility] Comment on above: Performed By: #### L 100.0500 #### [facility] [address] [place], [address] T PROT 6.1 g/dL Normal 5.9-8.4 [facility] Comment on above: Performed By: #### L 100.0500 #### [facility] [address] [place], [address] Urea nitrogen [Mass/Vol] 28 mg/dL High 4-19 [facility] Comment on above: Performed By: #### L 100.0500 #### [facility] [address] [place], [address] Erythrocyte distribution wid th ratioOrdered By: Savanna Kelly on 01-15-2025 Erythrocyte distribution width (RBC) [Ratio] 13.8 % 11.6-14.6 [facility] Erythrocyte distribution wid th standard deviationOrdered By: Savanna Kelly on 01-15-2025 Erythrocyte distribution width (RBC) [Ratio] 46.2 fl High 35.1-43.9 [facility] Glomerular filtration rate ( GFR) estimation/1.73 sq m using serum, plasma, or whole bOrdered By: Savanna Kelly on 01-15-2025 GFR/1.73 sq M.predicted among non-blacks MDRD (S/P/Bld) [Vol rate/Area] 91 mL/min/{1.73_m2} >60 [facility] Comment on above: mL/min/1.73m2 CKD-EP I Creatinine Equation (2020) Hematocrit Auto (Bld) [Volum e fraction]Ordered By: Savanna Kelly on 01-15-2025 Hematocrit (Bld) [Volume fraction] 39.0 % Low 40-54 [facility] Hemoglobin measurementOrdere d By: Savanna Kelly 01-15-2025 Hemoglobin (Bld) [Mass/Vol] 13.2 g/dL 13.0-16.5 [facility] - Chemistry and C hemistry - challengeOrdered By: Savanna Kelly 01-15-2025 AST [Catalytic activity/Vol] 32 U/L <38 [facility] MCV (mean corpuscular volume ) determinationOrdered By: Savanna Kelly on 01-15-2025 MCV (RBC) [Entitic vol] 91.1 fL 80-94 [facility] Mean corpuscular hemoglobin (MCH) determinationOrdered By: Savanna Kelly 01-15-2025 MCH (RBC) [Entitic mass] 30.8 pg 27.0-32.0 [facility] Mean corpuscular hemoglobin concentration (MCHC) determinationOrdered By: Savanna Kelly 01-15-2025 MCHC (RBC) [Mass/Vol] 33.8 g/dL 32-36 [facility] Mean platelet volume determi nationOrdered By: Savanna Robin on 01-15-2025 Platelet mean volume (Bld) [Entitic vol] 11.7 fL 6.2-12.0 [facility] Platelet countOrdered By: Bonnie red Robin on 01-15-2025 Platelets (Bld) [#/Vol] 194 10*3/uL 150-450 [facility] Potassium measurement (mass/ volume)Ordered By: Svaanna Kelly on 01-15-2025 Potassium (Unsp spec) [Mass/Vol] 4.4 mmol/L 3.3-5.1 [facility] RBC Auto (Bld) [#/Vol]Ordere d By: Savanna Robin on 01-15-2025 RBC (Bld) [#/Vol] 4.28 10*6/uL Low 4.6-6.2 [facility] Serum creatinine measurement (mass/volume)Ordered By: Savanna Kelly on 01-15-2025 Creatinine [Mass/Vol] 0.73 mg/dL 0.70-1.20 [facility] Serum globulin measurementOr dered By: Savanna Robin on 01-15-2025 Globulin (S) [Mass/Vol] 3.1 g/dL 2.2-4.2 [facility] Serum glucose measurement (m ass/volume)Ordered By: Savanna Kelly on 01-15-2025 Glucose [Mass/Vol] 105 mg/dL High 70-99 [facility] Serum or plasma alanine samson otransferase (ALT) measurementOrdered By: Savanna Kelly on 01-15-2025 ALT [Catalytic activity/Vol] 22 U/L <47 [facility] Serum or plasma albumin anthony urement (mass/volume)Ordered By: Savanna Kelly on 01-15-2025 Albumin [Mass/Vol] 3.1 g/dL Low 3.4-4.8 [facility] Serum or plasma albumin/glob ulin mass ratioOrdered By: Savanna Kelly on 01-15-2025 Albumin/Globulin [Mass ratio] 1.0 {ratio} 0.9-2.4 [facility] Serum or plasma alkaline enrique sphatase measurementOrdered By: Savanna Kelly on 01-15-2025 ALP [Catalytic activity/Vol] 144 U/L High 40-129 [facility] Serum or plasma calcium anthony urement (mass/volume)Ordered By: Savanna Kelly on 01-15-2025 Calcium [Mass/Vol] 9.1 mg/dL 7.6-11.0 [facility] Serum or plasma urea nitroge n measurement (mass/volume)Ordered By: Savanna Bonillaboris on 01-15-2025 Urea nitrogen [Mass/Vol] 28 mg/dL High - [facility] Sodium levelOrdered By: Savanna Bonillaboris on 01-15-2025 Sodium [Moles/Vol] 134 mmol/L 133-145 [facility] Total proteinOrdered By: Brinda Kelly on 01-15-2025 Protein [Mass/Vol] 6.1 g/dL 5.9-8.4 [facility] White blood cell (WBC) count Ordered By: Savanna Kelly on 01-15-2025 WBC (Bld) [#/Vol] 7.0 10*3/uL 4.4-11.0 [facility] Basic Metabolic Profile (BMP )on 01-14-2025 BUN Normal 4-19 [facility] Comment on above: Result Comment: Gadiel elled via OM: Ordered Performed By: #### L 500.2500 #### [facility] [address] [facility] [address] BUN/CRE Normal 10-20 [facility] Comment on above: Result Comment: Gadiel elled via OM: Ordered Performed By: #### L 500.2500 #### [facility] [address] [facility] [address] Calcium Normal 7.6-11.0 [facility] Comment on above: Result Comment: Gadiel angeled via OM: Ordered Performed By: #### L 500.2500 #### [facility] [address] [place], [address] CL Normal 98-108 [facility] Comment on above: Result Comment: Gadiel angeled via OM: Ordered Performed By: #### L 500.2500 #### [facility] [address] [place], [address] CO2 Normal 21.0-32.0 [facility] Comment on above: Result Comment: Canc elled via OM: MD Ordered Performed By: #### L 500.2500 #### [facility] [address] [place], [address] CREAT,SERUM Normal 0.70-1.20 [facility] Comment on above: Result Comment: Canc elled via OM: MD Ordered Performed By: #### L 500.2500 #### [facility] [address] [place], [address] eGFR Normal >60 [facility] Comment on above: Result Comment: Canc elled via OM: MD Ordered Performed By: #### L 500.2500 #### [facility] [address] [place], [address] GAP Normal 5-15 [facility] Comment on above: Result Comment: Canc elled via OM: MD Ordered Performed By: #### L 500.2500 #### [facility] [address] [place], [address] GLU Normal 70-99 [facility] Comment on above: Result Comment: Canc elled via OM: MD Ordered Performed By: #### L 500.2500 #### [facility] [address] [place], [address] Potassium Normal 3.3-5.1 [facility] Comment on above: Result Comment: Canc elled via OM: MD Ordered Performed By: #### L 500.2500 #### [facility] [address] [place], [address] Basic Metabolic Profile (BMP) Normal 133-145 [facility] Comment on above: Result Comment: Canc elled via OM: MD Ordered Performed By: #### L 500.2500 #### [facility] [address] [place], [address] Bilirubin Test strip Ql (U)O rdered By: Savanna Bonillaboris on 01-14-2025 Bilirubin Ql (U) Negative Negative [facility] Hyaline casts LM.LPF (Urine sed) [#/Area]Ordered By: Savanna Bonillaboris on 01-14-2025 Hyaline casts (Urine sed) [#/Area] 0 /[LPF] 0-5 [facility] Ketones Test strip Ql (U)Ord ered By: Savanna Bonillaboris on 01-14-2025 Ketones Ql (U) Negative Negative [facility] Microscopic analysis of urin e for red blood cells (RBC)Ordered By: Savanna Bonillaboris on 01-14-2025 Microscopic analysis of urine for red blood cells (RBC) 0-5 SEEN /hpf 0-5 [facility] Mucus LM Ql (Urine sed)Order ed By: Savanna Bonillaboris on 01-14-2025 Mucus Ql (Urine sed) 0 SEEN /hpf [facility] Nitrite Test strip Ql (U)Ord ered By: Savanna Bonillaboris on 01-14-2025 Nitrite Ql (U) Negative Negative [facility] Protein Test strip Ql (U)Ord ered By: Savanna Bonillaboris on 01-14-2025 Protein Ql (U) 15 mg/dl High Negative [facility] Squamous epithelial cells de tection in urine sediment by light microscopyOrdered By: Savanna Bonillaboris on 01-14-2025 Epithelial cells.squamous LM Ql (Urine sed) 0-5 SEEN /hpf 0-5 [facility] Urinalysis, Completeon 01-14 CAST,HYALINE 0-5 SEEN Normal 0-5 [facility] Comment on above: Order Comment: ULISES TER SPECIMEN Performed By: #### L 400.0001 #### [facility] [address] [place], [address] EPI,SQUAMOUS 0-5 SEEN Normal 0-5 [facility] Comment on above: Order Comment: ULISES TER SPECIMEN Performed By: #### L 400.0001 #### [facility] [address] [place], [address] RBC 0-5 SEEN Normal 0-5 [facility] Comment on above: Order Comment: ULISES TER SPECIMEN Performed By: #### L 400.0001 #### [facility] [address] [place], [address] WBC 0-5 SEEN Normal 0-5 [facility] Comment on above: Order Comment: ULISES TER SPECIMEN Performed By: #### L 400.0001 #### [facility] [address] [place], [address] BACTERIA 0 SEEN Normal None Seen [facility] Comment on above: Order Comment: ULISES TER SPECIMEN Performed By: #### L 400.0001 #### [facility] [address] [place], [address] Mucus Ql (Urine sed) 0 SEEN Normal [facility] Comment on above: Order Comment: ULISES TER SPECIMEN Performed By: #### L 400.0001 #### [facility] [address] [place], [address] Urine clarityOrdered By: Brinda Kelly on 01-14-2025 Clarity (U) Clear Clear [facility] Urine color determinationOrd ered By: Savanna Kelly on 01-14-2025 Color (U) Yellow Yellow [facility] Urine glucose detectionOrder ed By: Savanna Kelly on 01-14-2025 Glucose Ql (U) Normal mg/dl Normal [facility] Urine leukocyte esterase det ection by dipstickOrdered By: Savanna Kelly on 01-14-2025 Leukocyte esterase Test strip Ql (U) Negative Negative [facility] Urine pHOrdered By: Savanna moya on 01-14-2025 pH (U) 5.0 [pH] 5.0 - 8.0 [facility] Urine sediment bacteria coun t by microscopy (number/high power field)Ordered By: Savanna Kelly on 01-14-2025 Bacteria LM.HPF (Urine sed) [#/Area] 0 /[HPF] None Seen [facility] Urine specific gravity measu rementOrdered By: Savanna Kelly on 01-14-2025 Specific gravity (U) [Rel density] 1.020 1.002-1.030 [facility] Urine urobilinogen measureme ntOrdered By: Savanna Kelly on 01-14-2025 Urobilinogen Ql (U) Normal mg/dl Normal [facility] White blood cell countOrdere d By: Savanna Kelly on 01-14-2025 White blood cell count 0-5 SEEN /hpf 0-5 [facility] Basic Metabolic Profile (BMP )on 01-10-2025 BUN/CRE 29.8 RATIO High 10-20 [facility] Comment on above: Performed By: #### L 500.2500 #### [facility] [address] [place], [address] Calcium [Mass/Vol] 9.3 mg/dL Normal 7.6-11.0 [facility] Comment on above: Performed By: #### L 500.2500 #### [facility] [address] [place], [address] Chloride [Moles/Vol] 106 mmol/L Normal 98-108 [facility] Comment on above: Performed By: #### L 500.2500 #### [facility] [address] [place], [address] CO2 [Moles/Vol] 24.4 mmol/L Normal 21.0-32.0 [facility] Comment on above: Performed By: #### L 500.2500 #### [facility] [address] [place], [address] Creatinine [Mass/Vol] 0.96 mg/dL Normal 0.70-1.20 [facility] Comment on above: Performed By: #### L 500.2500 #### [facility] [address] [place], [address] ECRCL 70.91 ml/min Normal 50-250 [facility] Comment on above: Performed By: #### L 500.2500 #### [facility] [address] [place], [address] GAP 8 Normal 5-15 [facility] Comment on above: Performed By: #### L 500.2500 #### [facility] [address] [place], [address] GFR/1.73 sq M.predicted among non-blacks MDRD (S/P/Bld) [Vol rate/Area] 79 mL/min/{1.73_m2} Normal >60 [facility] Comment on above: Result Comment: mL/m in/1.73m2 CKD-EPI Creatinine Equation (2020) Performed By: #### L 500.2500 #### [facility] [address] [place], [address] Glucose [Mass/Vol] 115 mg/dL High 70-99 [facility] Comment on above: Performed By: #### L 500.2500 #### [facility] [address] [place], [address] Potassium [Moles/Vol] 4.4 mmol/L Normal 3.3-5.1 [facility] Comment on above: Result Comment: Hemo lysis present, Results??could be affected. ?? Performed By: #### L 500.2500 #### [facility] [address] [place], [address] Sodium [Moles/Vol] 139 mmol/L Normal 133-145 [facility] Comment on above: Performed By: #### L 500.2500 #### [facility] [address] [place], [address] Urea nitrogen [Mass/Vol] 29 mg/dL High 4-19 [facility] Comment on above: Performed By: #### L 500.2500 #### [facility] [address] [place], [address] Absolute lymphocyte countOrd ered By: Savanna Kelly on 01-06-2025 Lymphocytes Auto (Unsp spec) [#/Vol] 0.83 10*3/uL 0.83-4.51 [facility] Absolute neutrophil countOrd ered By: Savanna Kelly on 01-06-2025 Neutrophils (Bld) [#/Vol] 5.4 10*3/uL 2.0-7.7 [facility] Automated lymphocyte count a s percentage of total leukocytesOrdered By: Savanna Kelly on 01-06-2025 Lymphocytes/100 WBC Auto (Unsp spec) 10.0 % Low 19-41 [facility] Basic Metabolic Profile (BMP )on 01-06-2025 BUN/CRE 31.4 RATIO High 10-20 [facility] Comment on above: Performed By: #### L 500.2500 #### [facility] [address] [place], [address] Calcium [Mass/Vol] 9.1 mg/dL Normal 7.6-11.0 [facility] Comment on above: Performed By: #### L 500.2500 #### [facility] [address] [place], [address] Chloride [Moles/Vol] 98 mmol/L Normal 98-108 [facility] Comment on above: Performed By: #### L 500.2500 #### [facility] [address] [place], [address] CO2 [Moles/Vol] 20.5 mmol/L Low 21.0-32.0 [facility] Comment on above: Performed By: #### L 500.2500 #### [facility] [address] [place], [address] Creatinine [Mass/Vol] 0.90 mg/dL Normal 0.70-1.20 [facility] Comment on above: Performed By: #### L 500.2500 #### [facility] [address] [place], [address] ECRCL 75.63 ml/min Normal 50-250 [facility] Comment on above: Performed By: #### L 500.2500 #### [facility] [address] [place], [address] GAP 11 Normal 5-15 [facility] Comment on above: Performed By: #### L 500.2500 #### [facility] [address] [place], [address] GFR/1.73 sq M.predicted among non-blacks MDRD (S/P/Bld) [Vol rate/Area] 85 mL/min/{1.73_m2} Normal >60 [facility] Comment on above: Result Comment: mL/m in/1.73m2 CKD-EPI Creatinine Equation (2020) Performed By: #### L 500.2500 #### [facility] [address] [place], [address] Glucose [Mass/Vol] 115 mg/dL High 70-99 [facility] Comment on above: Performed By: #### L 500.2500 #### [facility] [address] [place], [address] Potassium [Moles/Vol] 4.4 mmol/L Normal 3.3-5.1 [facility] Comment on above: Performed By: #### L 500.2500 #### [facility] [address] [place], [address] Sodium [Moles/Vol] 130 mmol/L Low 133-145 [facility] Comment on above: Performed By: #### L 500.2500 #### [facility] [address] [place], [address] Urea nitrogen [Mass/Vol] 28 mg/dL High 4-19 [facility] Comment on above: Performed By: #### L 500.2500 #### [facility] [address] [place], [address] BUN Normal 4-19 [facility] Comment on above: Result Comment: orde red twice Performed By: #### L 500.2500 #### [facility] [address] [place], [address] BUN/CRE Normal 10-20 [facility] Comment on above: Result Comment: orde red twice Performed By: #### L 500.2500 #### [facility] [address] [place], [address] Calcium Normal 7.6-11.0 [facility] Comment on above: Result Comment: orde red twice Performed By: #### L 500.2500 #### [facility] [address] [place], [address] CL Normal 98-108 [facility] Comment on above: Result Comment: orde red twice Performed By: #### L 500.2500 #### [facility] [address] [place], [address] CO2 Normal 21.0-32.0 [facility] Comment on above: Result Comment: orde red twice Performed By: #### L 500.2500 #### [facility] [address] [place], [address] CREAT,SERUM Normal 0.70-1.20 [facility] Comment on above: Result Comment: orde red twice Performed By: #### L 500.2500 #### [facility] [address] [place], [address] eGFR Normal >60 [facility] Comment on above: Result Comment: orde red twice Performed By: #### L 500.2500 #### [facility] [address] [place], [address] GAP Normal 5-15 [facility] Comment on above: Result Comment: orde red twice Performed By: #### L 500.2500 #### [facility] [address] [place], [address] GLU Normal 70-99 [facility] Comment on above: Result Comment: orde red twice Performed By: #### L 500.2500 #### [facility] [address] [place], [address] Potassium Normal 3.3-5.1 [facility] Comment on above: Result Comment: orde red twice Performed By: #### L 500.2500 #### [facility] [address] [place], [address] Basic Metabolic Profile (BMP) Normal 133-145 [facility] Comment on above: Result Comment: orde red twice Performed By: #### L 500.2500 #### [facility] [address] [place], [address] Basophil percentageOrdered B y: Savanna Kelly on 01-06-2025 Basophils/100 WBC (Bld) 0.6 % 0-1 [facility] CBC W/Diff, Automatedon 12-24 Absolute Lymph 0.83 X10 3/uL Normal 0.83-4.51 [facility] Comment on above: Performed By: #### L 100.0100 #### [facility] [address] [place], [address] Absolute Neut 5.4 X10 3/uL Normal 2.0-7.7 [facility] Comment on above: Performed By: #### L 100.0100 #### [facility] [address] [place], [address] Basophils/100 WBC (Bld) 0.6 % Normal 0-1 [facility] Comment on above: Performed By: #### L 100.0100 #### [facility] [address] [place], [address] Eosinophils/100 WBC (Bld) 8.7 % High 0-5 [facility] Comment on above: Performed By: #### L 100.0100 #### [facility] [address] [place], [address] Erythrocyte distribution width (RBC) [Ratio] 13.9 % Normal 11.6-14.6 [facility] Comment on above: Performed By: #### L 100.0100 #### [facility] [address] [place], [address] Hematocrit (Bld) [Volume fraction] 42.7 % Normal 40-54 [facility] Comment on above: Performed By: #### L 100.0100 #### [facility] [address] [place], [address] Hemoglobin (Bld) [Mass/Vol] 15.1 g/dL Normal 13.0-16.5 [facility] Comment on above: Performed By: #### L 100.0100 #### [facility] [address] [place], [address] IG% 0.700 Normal 0.0-0.9 [facility] Comment on above: Result Comment: IG% - Immature Granulocytes (promyelocytes, myelocytes and metamyelocytes) > 1% indicates that a LEFT SHIFT is Present. Performed By: #### L 100.0100 #### [facility] [address] [place], [address] Lymphocytes/100 WBC (Bld) 10.0 % Low 19-41 [facility] Comment on above: Performed By: #### L 100.0100 #### [facility] [address] [place], [address] MCH (RBC) [Entitic mass] 31.4 pg Normal 27.0-32.0 [facility] Comment on above: Performed By: #### L 100.0100 #### [facility] [address] [place], [address] MCHC (RBC) [Mass/Vol] 35.4 g/dL Normal 32-36 [facility] Comment on above: Performed By: #### L 100.0100 #### [facility] [address] [place], [address] MCV (RBC) [Entitic vol] 88.8 fL Normal 80-94 [facility] Comment on above: Performed By: #### L 100.0100 #### [facility] [address] [place], [address] Monocytes/100 WBC (Bld) 14.2 % High 0-10 [facility] Comment on above: Performed By: #### L 100.0100 #### [facility] [address] [place], [address] Neutrophils/100 WBC (Bld) 65.8 % Normal 47-70 [facility] Comment on above: Performed By: #### L 100.0100 #### [facility] [address] [place], [address] Nucleated RBC (Bld) [#/Vol] 0 10*3/uL Normal 0-5 [facility] Comment on above: Performed By: #### L 100.0100 #### [facility] [address] [place], [address] Platelet mean volume (Bld) [Entitic vol] 11.5 fL Normal 6.2-12.0 [facility] Comment on above: Performed By: #### L 100.0100 #### [facility] [address] [place], [address] Platelets (Bld) [#/Vol] 240 10*3/uL Normal 150-450 [facility] Comment on above: Performed By: #### L 100.0100 #### [facility] [address] [place], [address] RBC (Bld) [#/Vol] 4.81 10*6/uL Normal 4.6-6.2 [facility] Comment on above: Performed By: #### L 100.0100 #### [facility] [address] [place], [address] RDW SD 45.1 fl High 35.1-43.9 [facility] Comment on above: Performed By: #### L 100.0100 #### [facility] [address] [place], [place], [address] WBC (Bld) [#/Vol] 8.3 10*3/uL Normal 4.4-11.0 [facility] Comment on above: Performed By: #### L 100.0100 #### [facility] [address] [place], [address] Eosinophil percentageOrdered By: Savanna Robin on 01-06-2025 Eosinophils/100 WBC (Bld) 8.7 % High 0-5 [facility] Immature granulocytes/100 WB C Auto (Bld)Ordered By: Savanna Robin on 01-06-2025 Immature granulocytes/100 WBC (Bld) 0.700 % 0.0-0.9 [facility] Comment on above: IG% - Immature Granu locytes (promyelocytes, myelocytes and metamyelocytes) > 1% indicates that a LEFT SHIFT is Present. Monocyte percentageOrdered B y: Savanna Bonillaboris on 01-06-2025 Monocytes/100 WBC (Bld) 14.2 % High 0-10 [facility] Neutrophil percentageOrdered By: Savanna Robin on 01-06-2025 Neutrophils/100 WBC (Bld) 65.8 % 47-70 [facility] Nucleated red blood cell per centageOrdered By: Savanna Robin on 01-06-2025 Nucleated RBC/100 WBC (Bld) [Ratio] 0 % 0- [facility] TSH DL <= 0.005 mIU/L QnOrde red By: Savanna Robin on 01-06-2025 TSH Qn 1.520 uIU/mL 0.300-4.200 [facility] Thyroid Stim Hormone (TSH)on 01-06-2025 TSH 1.520 uIU/mL Normal 0.300-4.200 [facility] Comment on above: Performed By: #### L 100.0500 #### [facility] [address] [place], [address] Basic Metabolic Profile (BMP )on 01-04-2025 BUN/CRE 19.7 RATIO Normal 10-20 [facility] Comment on above: Performed By: #### L 100.0500 #### [facility] [address] [place], [address] Calcium [Mass/Vol] 9.2 mg/dL Normal 7.6-11.0 [facility] Comment on above: Performed By: #### L 100.0500 #### [facility] [address] [place], [address] Chloride [Moles/Vol] 98 mmol/L Normal 98-108 [facility] Comment on above: Performed By: #### L 100.0500 #### [facility] [address] [place], [address] CO2 [Moles/Vol] 20.3 mmol/L Low 21.0-32.0 [facility] Comment on above: Performed By: #### L 100.0500 #### [facility] [address] [place], [address] Creatinine [Mass/Vol] 0.74 mg/dL Normal 0.70-1.20 [facility] Comment on above: Performed By: #### L 100.0500 #### [facility] [address] [place], [address] ECRCL 85.09 ml/min Normal 50-250 [facility] Comment on above: Performed By: #### L 100.0500 #### [facility] [address] [place], [address] GAP 10 Normal 5-15 [facility] Comment on above: Performed By: #### L 100.0500 #### [facility] [address] [place], [address] GFR/1.73 sq M.predicted among non-blacks MDRD (S/P/Bld) [Vol rate/Area] 91 mL/min/{1.73_m2} Normal >60 [facility] Comment on above: Result Comment: mL/m in/1.73m2 CKD-EPI Creatinine Equation (2020) Performed By: #### L 100.0500 #### [facility] [address] [place], [address] Glucose [Mass/Vol] 118 mg/dL High 70-99 [facility] Comment on above: Performed By: #### L 100.0500 #### [facility] [address] [place], [address] Potassium [Moles/Vol] 4.4 mmol/L Normal 3.3-5.1 [facility] Comment on above: Performed By: #### L 100.0500 #### [facility] [address] [place], [address] Sodium [Moles/Vol] 129 mmol/L Low 133-145 [facility] Comment on above: Performed By: #### L 100.0500 #### [facility] [address] [place], [address] Urea nitrogen [Mass/Vol] 15 mg/dL Normal 4-19 [facility] Comment on above: Performed By: #### L 100.0500 #### [facility] [address] [place], [address] Chest 1 View (Portable)on Chest 1 View (Portable) [facility] [address] [place] [address] Chest 1 View (Portable) MR#: [id number] Acct: [id number] Name: SUNG YAÑEZ Rep #: [id number] : 1940 M 84 From: Nona Giordano nd, MD PCP: Dr. Briseida Vergara MD Status: ADM IN Study: Chest 1 View (Portable) Date of Exam: 01/04/25 Exam# [id number] Ordering Dr: Savanna Kelly DO PROCEDURE: CHEST 1 VIEW (PORTABLE) 01/04/2025 REASON FOR EXAM: FEVER/POSSIBLE ASPIRATION. TECHNIQUE: Frontal view of the chest. COMPARISON: Chest radiograph 07/24/2021. FINDINGS: Hardware: None. Heart: The heart size is normal. Calcification of the thoracic aorta. Lungs: Low lung volumes. Probable left lower lung zone opacity and/or trace pleural effusion. No right pleural effusion. No pneumothorax. Bones: Degenerative changes are identified within the thoracic spine. Chronic right rib fracture deformities. RAD/Chest 1 View (Portable) IMPRESSION: Probable left lower lung zone opacity and/or trace pleural effusion. Reading Location: [id number] CC: Dr. Briseida Vergara MD; Dr. Savanna Kelly DO Hypoid Gear Tester: Signed Normal [facility] Basic Metabolic Profile (BMP )on 01-03-2025 BUN/CRE 17.3 RATIO Normal 10-20 [facility] Comment on above: Performed By: #### L 100.0500 #### [facility] [address] [place], [address] Calcium [Mass/Vol] 8.7 mg/dL Normal 7.6-11.0 [facility] Comment on above: Performed By: #### L 100.0500 #### [facility] [address] [place], [address] Chloride [Moles/Vol] 101 mmol/L Normal 98-108 [facility] Comment on above: Performed By: #### L 100.0500 #### [facility] [address] [place], [address] CO2 [Moles/Vol] 21.3 mmol/L Normal 21.0-32.0 [facility] Comment on above: Performed By: #### L 100.0500 #### [facility] [address] [place], [address] Creatinine [Mass/Vol] 0.75 mg/dL Normal 0.70-1.20 [facility] Comment on above: Performed By: #### L 100.0500 #### [facility] [address] [place], [address] ECRCL 85.09 ml/min Normal 50-250 [facility] Comment on above: Performed By: #### L 100.0500 #### [facility] [address] [place], [address] GAP 7 Normal 5-15 [facility] Comment on above: Performed By: #### L 100.0500 #### [facility] [address] [place], [address] GFR/1.73 sq M.predicted among non-blacks MDRD (S/P/Bld) [Vol rate/Area] 90 mL/min/{1.73_m2} Normal >60 [facility] Comment on above: Result Comment: mL/m in/1.73m2 CKD-EPI Creatinine Equation (2020) Performed By: #### L 100.0500 #### [facility] [address] [place], [address] Glucose [Mass/Vol] 111 mg/dL High 70-99 [facility] Comment on above: Performed By: #### L 100.0500 #### [facility] [address] [place], [address] Potassium [Moles/Vol] 4.6 mmol/L Normal 3.3-5.1 [facility] Comment on above: Performed By: #### L 100.0500 #### [facility] [address] [place], [address] Sodium [Moles/Vol] 130 mmol/L Low 133-145 [facility] Comment on above: Performed By: #### L 100.0500 #### [facility] [address] [place], [address] Urea nitrogen [Mass/Vol] 13 mg/dL Normal 4-19 [facility] Comment on above: Performed By: #### L 100.0500 #### [facility] [address] [place], [address] BUN Normal 4-19 [facility] Comment on above: Result Comment: Canc elled via OM: MD Ordered Performed By: #### L 500.2500 #### [facility] [address] [place], [address] BUN/CRE Normal 10-20 [facility] Comment on above: Result Comment: Canc elled via OM: MD Ordered Performed By: #### L 500.2500 #### [facility] [address] [place], [address] Calcium Normal 7.6-11.0 [facility] Comment on above: Result Comment: Canc elled via OM: MD Ordered Performed By: #### L 500.2500 #### [facility] [address] [place], [address] CL Normal 98-108 [facility] Comment on above: Result Comment: Canc elled via OM: MD Ordered Performed By: #### L 500.2500 #### [facility] [address] [place], [address] CO2 Normal 21.0-32.0 [facility] Comment on above: Result Comment: Canc elled via OM: MD Ordered Performed By: #### L 500.2500 #### [facility] [address] [place], [address] CREAT,SERUM Normal 0.70-1.20 [facility] Comment on above: Result Comment: Canc elled via OM: MD Ordered Performed By: #### L 500.2500 #### [facility] [address] [place], [address] eGFR Normal >60 [facility] Comment on above: Result Comment: Canc elled via OM: MD Ordered Performed By: #### L 500.2500 #### [facility] [address] [place], [address] GAP Normal 5-15 [facility] Comment on above: Result Comment: Canc elled via OM: MD Ordered Performed By: #### L 500.2500 #### [facility] [address] [place], [address] GLU Normal 70-99 [facility] Comment on above: Result Comment: Canc elled via OM: MD Ordered Performed By: #### L 500.2500 #### [facility] [address] [place], [address] Potassium Normal 3.3-5.1 [facility] Comment on above: Result Comment: Canc elled via OM: MD Ordered Performed By: #### L 500.2500 #### [facility] [address] [place], [address] Basic Metabolic Profile (BMP) Normal 133-145 [facility] Comment on above: Result Comment: Canc elled via OM: MD Ordered Performed By: #### L 500.2500 #### [facility] [address] [place], [address] CBC W/Diff, Automatedon 07-1 -2024 Absolute Lymph 0.63 X10 3/uL Low 0.83-4.51 [facility] Comment on above: Performed By: #### L 100.0500 #### [facility] [address] [place], [address] Absolute Neut 6.0 X10 3/uL Normal 2.0-7.7 [facility] Comment on above: Performed By: #### L 100.0500 #### [facility] [address] [place], [address] Basophils/100 WBC (Bld) 0.6 % Normal 0-1 [facility] Comment on above: Performed By: #### L 100.0500 #### [facility] [address] [place], [address] Eosinophils/100 WBC (Bld) 5.8 % High 0-5 [facility] Comment on above: Performed By: #### L 100.0500 #### [facility] [address] [place], [address] Erythrocyte distribution width (RBC) [Ratio] 14.0 % Normal 11.6-14.6 [facility] Comment on above: Performed By: #### L 100.0500 #### [facility] [address] [place], [address] Hematocrit (Bld) [Volume fraction] 43.0 % Normal 40-54 [facility] Comment on above: Performed By: #### L 100.0500 #### [facility] [address] [place], [address] Hemoglobin (Bld) [Mass/Vol] 14.5 g/dL Normal 13.0-16.5 [facility] Comment on above: Performed By: #### L 100.0500 #### [facility] [address] [place], [address] IG% 0.400 Normal 0.0-0.9 [facility] Comment on above: Result Comment: IG% - Immature Granulocytes (promyelocytes, myelocytes and metamyelocytes) > 1% indicates that a LEFT SHIFT is Present. Performed By: #### L 100.0500 #### [facility] [address] [place], [address] Lymphocytes/100 WBC (Bld) 7.7 % Low 19-41 [facility] Comment on above: Performed By: #### L 100.0500 #### [facility] [address] [place], [address] MCH (RBC) [Entitic mass] 31.0 pg Normal 27.0-32.0 [facility] Comment on above: Performed By: #### L 100.0500 #### [facility] [address] [place], [address] MCHC (RBC) [Mass/Vol] 33.7 g/dL Normal 32-36 [facility] Comment on above: Performed By: #### L 100.0500 #### [facility] [address] [place], [address] MCV (RBC) [Entitic vol] 92.1 fL Normal 80-94 [facility] Comment on above: Performed By: #### L 100.0500 #### [facility] [address] [place], [address] Monocytes/100 WBC (Bld) 11.4 % High 0-10 [facility] Comment on above: Performed By: #### L 100.0500 #### [facility] [address] [place], [address] Neutrophils/100 WBC (Bld) 74.1 % High 47-70 [facility] Comment on above: Performed By: #### L 100.0500 #### [facility] [address] [place], [address] Nucleated RBC (Bld) [#/Vol] 0 10*3/uL Normal 0-5 [facility] Comment on above: Performed By: #### L 100.0500 #### [facility] [address] [place], [address] Platelet mean volume (Bld) [Entitic vol] 11.0 fL Normal 6.2-12.0 [facility] Comment on above: Performed By: #### L 100.0500 #### [facility] [address] [place], [address] Platelets (Bld) [#/Vol] 232 10*3/uL Normal 150-450 [facility] Comment on above: Performed By: #### L 100.0500 #### [facility] [address] [place], [address] RBC (Bld) [#/Vol] 4.67 10*6/uL Normal 4.6-6.2 [facility] Comment on above: Performed By: #### L 100.0500 #### [facility] [address] [place], [address] RDW SD 47.1 fl High 35.1-43.9 [facility] Comment on above: Performed By: #### L 100.0500 #### [facility] [address] [place], [address] WBC (Bld) [#/Vol] 8.2 10*3/uL Normal 4.4-11.0 [facility] Comment on above: Performed By: #### L 100.0500 #### [facility] [address] [place], [address] Urine Cultureon 01-03-2025 [facility] Enterococcus faecalis [place] Count >100,000 Enterococcus faecalis: REACTION Ampicillin Islt AMOS <=2 Ciprofloxacin Islt AMOS <=0.5 S Gentamicin Synergy Susc Islt SYN-S S levoFLOXacin Islt AMOS 1 S Linezolid Islt AMOS 2 S Nitrofurantoin Islt AMOS <=16 S Streptomycin High Pot Susc Islt SYN-S S Tetracycline Islt AMOS <=1 S Vancomycin Islt AMOS 1 S Normal [facility] Comment on above: Performed By: #### L 100.0100 #### [facility] [address] [place], [address] Osmolality urOrdered By: Brinda Kelly on 01-02-2025 Osmolality (U) [Osmolality] 437 mOsm/KG >50 [facility] Comment on above: Normal Urine Referen ce Ranges Random: 50 - 1200 mOsm/kg H20 depending on fluid intake Random: >850 mOsm/kg after 12 hour fluid restriction 24 hour: ~300 - 900 mOsm/kg H2O Osmolality, Serumon 01-03-20 25 OSMOLALITY,SER 286 mOsm/KG Normal 280-301 [facility] Comment on above: Performed By: #### L 100.0100 #### [facility] [address] [place], [address] Osmolality, Urineon 01-03-20 25 OSMOLALITY,UR 437 mOsm/KG Normal [facility] Comment on above: Result Comment: Normal Urine Reference Ranges Random: 50 - 1200 mOsm/kg H20 depending on fluid intake Random: >850 mOsm/kg after 12 hour fluid restriction 24 hour: 300 - 900 mOsm/kg H2O Performed By: #### L 501.7400 #### [facility] [address] [place], [address] Urine Sodiumon 01-02-2025 Sodium (U) [Moles/Vol] 51 mmol/L Normal Not Establ. [facility] Comment on above: Performed By: #### L 500.2500 #### [facility] [address] [place], [address] Urine sodium measurement (mo les/volume)Ordered By: Savanna Kelly on 01-02-2025 Sodium (U) [Moles/Vol] 51 mmol/L Not Establ. [facility] CBC W/Diff, Automatedon 07 Absolute Lymph 1.46 X10 3/uL Normal 0.83-4.51 [facility] Comment on above: Performed By: #### L 100.0100 #### [facility] [address] [place], [address] Absolute Neut 4.2 X10 3/uL Normal 2.0-7.7 [facility] Comment on above: Performed By: #### L 100.0100 #### [facility] [address] [place], [address] Basophils/100 WBC (Bld) 0.6 % Normal 0-1 [facility] Comment on above: Performed By: #### L 100.0100 #### [facility] [address] [place], [address] Eosinophils/100 WBC (Bld) 3.8 % Normal 0-5 [facility] Comment on above: Performed By: #### L 100.0100 #### [facility] [address] [place], [address] Erythrocyte distribution width (RBC) [Ratio] 13.7 % Normal 11.6-14.6 [facility] Comment on above: Performed By: #### L 100.0100 #### [facility] [address] [place], [address] Hematocrit (Bld) [Volume fraction] 44.5 % Normal 40-54 [facility] Comment on above: Performed By: #### L 100.0100 #### [facility] [address] [place], [address] Hemoglobin (Bld) [Mass/Vol] 14.9 g/dL Normal 13.0-16.5 [facility] Comment on above: Performed By: #### L 100.0100 #### [facility] [address] [place], [address] IG% 0.300 Normal 0.0-0.9 [facility] Comment on above: Result Comment: IG% - Immature Granulocytes (promyelocytes, myelocytes and metamyelocytes) > 1% indicates that a LEFT SHIFT is Present. Performed By: #### L 100.0100 #### [facility] [address] [place], [address] Lymphocytes/100 WBC (Bld) 22.0 % Normal 19-41 [facility] Comment on above: Performed By: #### L 100.0100 #### [facility] [address] [place], [address] MCH (RBC) [Entitic mass] 30.5 pg Normal 27.0-32.0 [facility] Comment on above: Performed By: #### L 100.0100 #### [facility] [address] [place], [address] MCHC (RBC) [Mass/Vol] 33.5 g/dL Normal 32-36 [facility] Comment on above: Performed By: #### L 100.0100 #### [facility] [address] [place], [address] MCV (RBC) [Entitic vol] 91.0 fL Normal 80-94 [facility] Comment on above: Performed By: #### L 100.0100 #### [facility] [address] [place], [address] Monocytes/100 WBC (Bld) 9.5 % Normal 0-10 [facility] Comment on above: Performed By: #### L 100.0100 #### [facility] [address] [place], [address] Neutrophils/100 WBC (Bld) 63.8 % Normal 47-70 [facility] Comment on above: Performed By: #### L 100.0100 #### [facility] [address] [place], [address] Nucleated RBC (Bld) [#/Vol] 0 10*3/uL Normal 0-5 [facility] Comment on above: Performed By: #### L 100.0100 #### [facility] [address] [place], [address] Platelet mean volume (Bld) [Entitic vol] 11.4 fL Normal 6.2-12.0 [facility] Comment on above: Performed By: #### L 100.0100 #### [facility] [address] [place], [address] Platelets (Bld) [#/Vol] 250 10*3/uL Normal 150-450 [facility] Comment on above: Performed By: #### L 100.0100 #### [facility] [address] [place], [address] RBC (Bld) [#/Vol] 4.89 10*6/uL Normal 4.6-6.2 [facility] Comment on above: Performed By: #### L 100.0100 #### [facility] [address] [place], [address] RDW SD 45.2 fl High 35.1-43.9 [facility] Comment on above: Performed By: #### L 100.0100 #### [facility] [address] [place], [address] WBC (Bld) [#/Vol] 6.6 10*3/uL Normal 4.4-11.0 [facility] Comment on above: Performed By: #### L 100.0100 #### [facility] [address] [place], [place], [address] CNPNon 01-01-2025 [facility] Telephone ([facility]) SUNG YAÑEZ ([id number]) 1940 M Date Time Provider Department 01/01/25 MIKE PADILLA [facility] During your visit today, we recorded the following information about you: Michelle Gale 01/01/2025 11:07 AM Signed Appointment information faxed to [facility] @ [phone]. Confirmation of completion received. Michelle Gale Allergies As of Date: 01/01/2025 (No Known Allergies) Date Reviewed: 12/28/2024 Reviewed by: Arnulfo Crowley, LINH - Fully Assessed Reason for Visit: Appointment [186] Prescriptions as of 01/01/2025 - MAGNESIUM GLYCINATE PO Take 200 mg by mouth once daily. - metoprolol succinate ER (TOPROL XL) 50 mg 24 hr tablet Take 50 mg by mouth once daily. - lisinopril (ZESTRIL) 20 mg tablet Take 20 mg by mouth once daily. Problem List As Of Date 01/01/2025 Noted Resolved Family history of malignant neoplasm of gastroi* SDH (subdural hematoma) (HCC) [S06.5XAA] 12/23/2024 Trauma [T14.90XA] 12/23/2024 Fall [W19.XXXA] 12/23/2024 Current use of buttermaker anticoagulation [Z79.0*12/23/2024 Scalp abrasion [S00.01XA] 12/23/2024 Neuropathy [G62.9] 12/23/2024 Left leg weakness [R29.898] 12/23/2024 Primary hypertension [I10] 12/23/2024 Chronic atrial fibrillation (HCC) [I48.20] 12/23/2024 Acute left hemiparesis (HCC) [G81.94] 12/25/2024 Encounter Status:Closed by MICHELLE GALE on 01/01/25 Normal [facility] Comprehensive Metabolic Prof mton 01-01-2025 Albumin [Mass/Vol] 3.3 g/dL Low 3.4-4.8 [facility] Comment on above: Performed By: #### L 100.0100 #### [facility] [address] [place], [address] Albumin/Globulin [Mass ratio] 1.1 {ratio} Normal 0.9-2.4 [facility] Comment on above: Performed By: #### L 100.0100 #### [facility] [address] [place], [address] ALK PHOS 132 U/L High 40-129 [facility] Comment on above: Performed By: #### L 100.0100 #### [facility] [address] [place], [address] ALT [Catalytic activity/Vol] 29 U/L Normal <=46 [facility] Comment on above: Performed By: #### L 100.0100 #### [facility] [address] [place], [address] AST [Catalytic activity/Vol] 26 U/L Normal <=37 [facility] Comment on above: Performed By: #### L 100.0100 #### [facility] [address] [place], [address] Bilirubin [Mass/Vol] 0.94 mg/dL Normal 0.00-1.30 [facility] Comment on above: Performed By: #### L 100.0100 #### [facility] [address] [place], [address] BUN/CRE 23.8 RATIO High 10-20 [facility] Comment on above: Performed By: #### L 100.0100 #### [facility] [address] [place], [address] Calcium [Mass/Vol] 9.2 mg/dL Normal 7.6-11.0 [facility] Comment on above: Performed By: #### L 100.0100 #### [facility] [address] [place], [address] Chloride [Moles/Vol] 100 mmol/L Normal 98-108 [facility] Comment on above: Performed By: #### L 100.0100 #### [facility] [address] [place], [address] CO2 [Moles/Vol] 18.3 mmol/L Low 21.0-32.0 [facility] Comment on above: Performed By: #### L 100.0100 #### [facility] [address] [place], [address] Creatinine [Mass/Vol] 0.72 mg/dL Normal 0.70-1.20 [facility] Comment on above: Performed By: #### L 100.0100 #### [facility] [address] [place], [address] ECRCL 85.09 ml/min Normal 50-250 [facility] Comment on above: Performed By: #### L 100.0100 #### [facility] [address] [place], [address] GAP 13 Normal 5-15 [facility] Comment on above: Performed By: #### L 100.0100 #### [facility] [address] [place], [address] GFR/1.73 sq M.predicted among non-blacks MDRD (S/P/Bld) [Vol rate/Area] 91 mL/min/{1.73_m2} Normal >60 [facility] Comment on above: Result Comment: mL/m in/1.73m2 CKD-EPI Creatinine Equation (2020) Performed By: #### L 100.0100 #### [facility] [address] [place], [address] Globulin (S) [Mass/Vol] 3.1 g/dL Normal 2.2-4.2 [facility] Comment on above: Performed By: #### L 100.0100 #### [facility] [address] [place], [address] Glucose [Mass/Vol] 111 mg/dL High 70-99 [facility] Comment on above: Performed By: #### L 100.0100 #### [facility] [address] [place], [address] Potassium [Moles/Vol] 4.2 mmol/L Normal 3.3-5.1 [facility] Comment on above: Performed By: #### L 100.0100 #### [facility] [address] [place], [address] Sodium [Moles/Vol] 131 mmol/L Low 133-145 [facility] Comment on above: Performed By: #### L 100.0100 #### [facility] [address] [place], [address] T PROT 6.3 g/dL Normal 5.9-8.4 [facility] Comment on above: Performed By: #### L 100.0100 #### [facility] [address] [place], [address] Urea nitrogen [Mass/Vol] 17 mg/dL Normal 4-19 [facility] Comment on above: Performed By: #### L 100.0100 #### [facility] [address] [place], [address] Magnesiumon 01-01-2025 Magnesium [Mass/Vol] 2.0 mg/dL Normal 1.5-2.2 [facility] Comment on above: Performed By: #### L 100.0100 #### [facility] [address] [place], [address] Magnesium measurement (mass/ volume)Ordered By: Savanna Kelly on 01-01-2025 Magnesium (Unsp spec) [Mass/Vol] 2.0 mg/dL 1.5-2.2 [facility] Phosphoruson 01-01-2025 Phosphate [Mass/Vol] 3.2 mg/dL Normal 2.7-4.5 [facility] Comment on above: Performed By: #### L 100.0100 #### [facility] [address] [place], [address] Stool Occult Blood iFOBon STOB Positive Normal [facility] Comment on above: Performed By: #### L 500.2500 #### [facility] [address] [place], [address] Stool gastrointestinal hemog lobin detection by immunologic methodOrdered By: Savanna Kelly on 01-01-2025 Lower GI hemoglobin IA Ql (Stl) Positive Abnormal [facility] Urinalysis, Completeon 12-31 RBC 0-5 SEEN Normal 0-5 [facility] Comment on above: Order Comment: ULISES TER SPECIMEN Performed By: #### L 100.0100 #### [facility] [facility] [address] [place], [address] BACTERIA 2+ /hpf Normal None Seen [facility] Comment on above: Order Comment: ULISES TER SPECIMEN Performed By: #### L 100.0100 #### [facility] [address] [place], [address] EPI,SQUAMOUS 0-5 SEEN Normal 0-5 [facility] Comment on above: Order Comment: ULISES TER SPECIMEN Performed By: #### L 100.0100 #### [facility] [address] [place], [address] WBC >100 SEEN Normal 0-5 [facility] Comment on above: Order Comment: ULISES TER SPECIMEN Result Comment: Micr oscopic field is filled. Other elements may be obscured. Performed By: #### L 100.0100 #### [facility] [address] [place], [address] Mucus Ql (Urine sed) 0 SEEN Normal [facility] Comment on above: Order Comment: ULISES TER SPECIMEN Performed By: #### L 100.0100 #### [facility] [address] [place], [address] Urine cultureOrdered By: Brinda Kelly on 12-31-2024 Bacteria identified Cx Nom (U) Enterococcus faecalis Abnormal [facility] Basic metabolic 2000 panelon 12-30-2024 Anion gap [Moles/Vol] 10 mmol/L Normal 8-15 [facility] Comment on above: Order Comment: Speci men Type: BLOOD SPECIMENOrdering Facility: [facility] Address: [address] [place] [address] Performed By: #### 2 4321-2 ####[facility]ORYCLIA [id number] [place] [address] [place] Calcium [Mass/Vol] 8.6 mg/dL Normal 8.5-10.2 [facility] Comment on above: Order Comment: Speci men Type: BLOOD SPECIMENOrdering Facility: [facility] Address: [address] [place] [address] Performed By: #### 2 4321-2 ####[facility]ORATORYCLIA [id number] [place] [address] [place] Chloride [Moles/Vol] 100 mmol/L Normal 98-107 [facility] Comment on above: Order Comment: Speci men Type: BLOOD SPECIMENOrdering Facility: [facility] Address: [address] [place] [address] Performed By: #### 2 4321-2 ####[facility]ORYCLIA [id number] [place] [address] [place] CO2 [Moles/Vol] 23 mmol/L Normal 22-30 [facility] Comment on above: Order Comment: Speci men Type: BLOOD SPECIMENOrdering Facility: [facility] Address: [address] [place] [address] Performed By: #### 2 4321-2 ####[facility]ORYCLIA [id number] [place] [address] [place] Creatinine [Mass/Vol] 0.69 mg/dL Low 0.73-1.22 [facility] Comment on above: Order Comment: Speci men Type: BLOOD SPECIMENOrdering Facility: [facility] Address: [address] [place] [address] Performed By: #### 2 4321-2 ####[facility]ATORYCLIA [id number] [address] [place] Creatinine and Glomerular filtration rate.predicted panel (S/P/Bld) 92 mL/min/1.73m??? Normal >=60 [facility] Comment on above: Order Comment: Vaishnavi mansfield Type: BLOOD SPECIMENOrdering Facility: [facility] Address: [address] [place] [address] Result Comment: Rhea mated Glomerular Filtration Rate (eGFR) is calculated using the 2020 CKD-EPI creatinine equation. This equation utilizes serum creatinine, sex, and age as parameters. The creatinine assay has traceable calibration to isotope dilution-mass spectrometry. Refer to KDIGO guidelines for clinical interpretation. In patients with unstable renal function, e.g. those with acute kidney injury, the eGFR may not accurately reflect actual GFR. Performed By: #### 2 4321-2 ####[facility]ORYCLIA [id number] [place] [address] [place] Glucose [Mass/Vol] 94 mg/dL Normal 74-99 [facility] Comment on above: Order Comment: Vaishnavi mansfield Type: BLOOD SPECIMENOrdering Facility: [facility] Address: [address] [place] [address] Result Comment: The [place] Diabetes Association (ADA) provides guidance for cutoff values for fasting glucose and random glucose. The ADA defines fasting as no caloric intake for at least 8 hours. Fasting plasma glucose results between 100 to 125 mg/dL indicate increased risk for diabetes (prediabetes). Fasting plasma glucose results greater than or equal to 126 mg/dL meet the criteria for diagnosis of diabetes. In the absence of unequivocal hyperglycemia, results should be confirmed by repeat testing. In a patient with classic symptoms of hyperglycemia or hyperglycemic crisis, random plasma glucose results greater than or equal to 200 mg/dL meet the criteria for diagnosis of diabetes. Reference: Standards of Medical Care in Diabetes 2016, [place] Diabetes Association. Diabetes Care. 2016.39(Suppl 1). Performed By: #### 2 4321-2 ####[facility]ORYCLIA [id number] [place] [address] [place] Potassium [Moles/Vol] 4.0 mmol/L Normal 3.7-5.1 [facility] Comment on above: Order Comment: Vaishnavi mansfield Type: BLOOD SPECIMENOrdering Facility: [facility] Address: [address] [place] [address] Performed By: #### 2 4321-2 ####[facility]ATORYCLIA [id number] [address] STATES [facility] Sodium [Moles/Vol] 133 mmol/L Low 136-144 [facility] Comment on above: Order Comment: Speci men Type: BLOOD SPECIMENOrdering Facility: [facility] Address: [address] [place] [address] Performed By: #### 2 4321-2 ####[facility]ORYCLIA [id number] [address] [place] Urea nitrogen [Mass/Vol] 14 mg/dL Normal 9-24 [facility] Comment on above: Order Comment: Speci men Type: BLOOD SPECIMENOrdering Facility: [facility] Address: [address] [place] [address] Performed By: #### 2 4321-2 ####[facility]ORYCLIA [id number] [address] CBC panel Auto (Bld)on 12-30 Erythrocyte distribution width (RBC) [Ratio] 13.8 % Normal 11.5-15.0 [facility] Comment on above: Order Comment: Speci men Type: BLOOD SPECIMENOrdering Facility: [facility] Address: [address] [place] [address] Performed By: #### 5 8410-2 ####[facility]ORYCLIA [id number] [address] Hematocrit (Bld) [Volume fraction] 42.0 % Normal 39.0-51.0 [facility] Comment on above: Order Comment: Speci men Type: BLOOD SPECIMENOrdering Facility: [facility] Address: [address] [place] [address] Performed By: #### 5 8410-2 ####[facility]ORYCLIA [id number] [address] [place] Hemoglobin (Bld) [Mass/Vol] 14.3 g/dL Normal 13.0-17.0 [facility] Comment on above: Order Comment: Speci men Type: BLOOD SPECIMENOrdering Facility: [facility] Address: [address] [place] [address] Performed By: #### 5 8410-2 ####[facility]ORYCLIA [id number] [address] MCH (RBC) [Entitic mass] 31.0 pg Normal 26.0-34.0 [facility] Comment on above: Order Comment: Speci men Type: BLOOD SPECIMENOrdering Facility: [facility] Address: [address] [place] [address] Performed By: #### 5 8410-2 ####[facility]ORYCLIA [id number] [address] MCHC (RBC) [Mass/Vol] 34.0 g/dL Normal 30.5-36.0 [facility] Comment on above: Order Comment: Speci men Type: BLOOD SPECIMENOrdering Facility: [facility] Address: [address] [place] [address] Performed By: #### 5 8410-2 ####[facility]ORYCLIA [id number] [address] MCV (RBC) [Entitic vol] 91.1 fL Normal 80.0-100.0 [facility] Comment on above: Order Comment: Speci men Type: BLOOD SPECIMENOrdering Facility: [facility] Address: [address] [place] [address] Performed By: #### 5 8410-2 ####[facility]ORYCLIA [id number] [address] Nucleated RBC (Bld) [#/Vol] 10*3/uL Normal <0.01 [facility] Comment on above: Order Comment: Speci men Type: BLOOD SPECIMENOrdering Facility: [facility] Address: [address] [place] [address] Performed By: #### 5 8410-2 ####[facility]ORYCLIA [id number] [address] Platelet mean volume (Bld) [Entitic vol] 11.4 fL Normal 9.0-12.7 [facility] Comment on above: Order Comment: Speci men Type: BLOOD SPECIMENOrdering Facility: [facility] Address: [address] [place] [address] Performed By: #### 5 8410-2 ####[facility]ORYCLIA [id number] [address] [place] Platelets (Bld) [#/Vol] 224 10*3/uL Normal 150-400 [facility] Comment on above: Order Comment: Speci men Type: BLOOD SPECIMENOrdering Facility: [facility] Address: [address] [place] [address] Performed By: #### 5 8410-2 ####[facility]ORYCLIA [id number] [address] [place] RBC (Bld) [#/Vol] 4.61 10*6/uL Normal 4.20-6.00 [facility] Comment on above: Order Comment: Speci men Type: BLOOD SPECIMENOrdering Facility: [facility] Address: [address] [place] [address] Performed By: #### 5 8410-2 ####[facility]ORYCLIA [id number] [address] [place] WBC (Bld) [#/Vol] 5.20 10*3/uL Normal 3.70-11.00 [facility] Comment on above: Order Comment: Speci men Type: BLOOD SPECIMENOrdering Facility: [facility] Address: [address] [place] [address] Performed By: #### 5 8410-2 ####[facility]ORYCLIA [id number] [address] CNDSon 12-30-2024 CNDS HNO ID: [id number] Author: KATI CHAUHAN MD Service: General Surgery Author Type: Physician Type: Discharge Summary Filed: 12/30/2024 14:38 Note Text: DISCHARGE SUMMARY PATIENT NAME: Sung Yañez Code Status: Full Code Highest Readmission Risk Score: 10 The 30 day readmissions risk score is derived from an internally validated risk model which evaluates patient level characteristics, utilization history, medication orders and lab results up until the day of discharge. Patients with a score of 39 or above are considered highest risk for readmission. Specific patient level drivers will be listed at the bottom of the summary. Admission Information Admission Information ADMIT DATE: 12/23/2024 DISCHARGE DATE: 12/30/2024 MY DOCTORS AND MEDICAL TEAM: My Main Hospital Doctor: Kati Chauhan MD Primary Care Provider: Briseida Vergara MD My Medical Team Members: Treatment Team: Attending Provider: Kati Chauhan MD Consulting: Yumiko De Paz DO, PhD Consulting: Mike Padilla MD MY CONDITION AT DISCHARGE: Stable REASON I WAS IN THE HOSPITAL: right SDH SUMMARY OF WHAT HAPPENED WHILE I WAS IN THE HOSPITAL: 84yo male PMH HTN, afib on Xarelto, CHRISTOPHER, LLE neuropathy who presented 12/20/2024 following a ground level fall, he initially presented 12/23/2024 to an outside hospital where initial head CT showed right parafalcine SDH, Kcentra was given prior to transfer to [facility]. He was admitted to the Surgical ICU and neurosurgery was consulted, pt was not a candidate for middle meningeal artery embolization and his SDH was monitored via repeat CT heads, final CT head was stable on 12/26/2024 and showed decreased intracranial hemorrhage. MRI brain was also obtained to evaluate for possible CVA which was negative for infarct on 12/26/2024, along with EEG which showed no evidence of seizure. Pt was transferred to a regular nursing unit on 12/28/2024 and PT/OT was consulted for evaluation. His home Xarelto is continuing to be held until outpatient follow up CT head with neurosurgery office visit. OTHER PROBLEMS/DIAGNOSIS: Principal Problem: SDH (subdural hematoma) (HCC) Active Problems: Trauma Fall Current use of buttermaker anticoagulation Scalp abrasion Neuropathy Left leg weakness Primary hypertension Chronic atrial fibrillation (HCC) Acute left hemiparesis (HCC) Resolved Problems: * No resolved hospital problems. * OPERATIONS PERFORMED WHILE IN THE HOSPITAL: None IMPORTANT TEST/PROCEDURES: No procedures performed TEST RESULTS NOT AVAILABLE AT THIS TIME: No pending results Discharge Disposition Discharge Disposition: Inpatient Rehab Activity When You Leave the Hospital No walking restrictions Resume pre-hospital activity Diet Instructions Diet Heart healthy diet Low Salt For Pain When You Leave the Hospital Other: Use tylenol for pain control, 1000mg QID Use the dispensed medication (see prescription) Call Your Doctor If You have a severe headache Follow Up Appointments Follow-up Appointment When: In 2 weeks Mike Padilla MD [phone] [address] [facility] [address] PCP Requested Referral Additional Provider to Provider Information: 12/25: No EEG seizure seen on BEM, able to wiggle fingers to left hand Treatment Team: Attending Provider: Kati Chauhan MD Consulting: Yumiko De Paz DO, PhD Consulting: Mike Padilla MD FINAL DIAGNOSIS: SDH Active Hospital Problems Diagnosis POA SDH (subdural hematoma) (HCC) Yes Acute left hemiparesis (HCC) Unknown Trauma Yes Fall Yes Current use of group home anticoagulation Yes Scalp abrasion Yes Neuropathy Yes Left leg weakness Yes Primary hypertension Yes Chronic atrial fibrillation (HCC) Yes Resolved Hospital Problems No resolved problems to display. FOLLOW-UP APPOINTMENTS ALREADY SCHEDULED WITH A [facility] PROVIDER: No future appointments. ALLERGIES No Known Allergies DISCHARGE MEDICATION: Medication List START taking these medications cyclobenzaprine 10 mg tablet Commonly known as: FLEXERIL Take 0.5 tablets by mouth three times a day as needed for muscle spasm for up to 1 day. oxyCODONE IR 5 mg immediate release tablet Commonly known as: ROXICODONE Take 1 tablet by mouth every 4 hours as needed for pain for up to 1 day. CONTINUE taking these medications lisinopril 20 mg tablet Commonly known as: ZESTRIL MAGNESIUM GLYCINATE PO metoprolol succinate ER 50 mg 24 hr tablet Commonly known as: TOPROL XL STOP taking these medications AdviL 200 mg tablet Generic drug: ibuprofen XARELTO 20 mg tablet Generic drug: rivaroxaban The patient's risk for 30-day readmission is determined using the following contributing factors: Predictive Model Details 7% (Low) Factor Value Calculated 12/30/2024 05:20 -18% Hospital Unit [facility] GENERAL SURGERY [facility] READMISSION RISK Model - (more content not included)... Normal [facility] CONSULT PROGon 12-30-2024 CONSULT PROG HNO ID: [id number] Author: PIERRE STAHL APRN.TEXTILE ENGINEER Service: Neurosurgery Author Type: Nurse Practitioner Type: Consult Progress Note Filed: 12/30/2024 11:51 Note Text: Neurosurgery Progress Note SERVICE DATE: 12/30/2024 SUBJECTIVE: Patient alert and oriented with left sided weakness OBJECTIVE: Vitals: Temp (24hrs), Av.7 ?C (98.1 ?F), Min:36.2 ?C (97.1 ?F), Max:37.2 ?C (98.9 ?F) BP 143/76 Pulse 69 Temp 36.8 ?C (98.3 ?F) Resp 14 Ht 190.5 cm (6' 3) Wt 98.5 kg (217 lb 2.5 oz) SpO2 95% BMI 27.14 kg/m? O2 Therapy: Room Air IANDO: Date 12/29/24699 - 12/30/2459 12/30/24699 - 12/31/24 0659 Shift 5349-7818 0119-5261 7068-5804 24 Hour Total 6550-8435 1543-8730 4132-1249 24 Hour Total INTAKE PO 270 270 240 240 PO 270 270 240 240 Supplements (mL) 0 0 0 0 Shift Total 270 270 240 240 OUTPUT Urine 433 524 3526 2300 100 100 Urine Incontinence/Not Saved 1 x 2 x 3 x Output ( External Collection Device 12/24/24 1500 [facility]) 485 507 0913 2300 100 100 # of BMs Stool Incontinence 1 x 1 x Number of BMs 2 x 2 x 1 x 5 x Shift Total 737 900 7508 2300 100 100 Weight (kg) 97.8 98.5 98.5 98.5 98.5 98.5 98.5 98.5 Medications: Current Facility-Administere d Medications Medication Dose Route Frequency cyclobenzaprine 5 mg tab(s) (FLEXERIL) 5 mg ORAL TID PRN heparin 5,000 Units injection 5,000 Units SUBCUTANEOUS q 8 H NaCl 0.9% iv flush bag 20 mL INTRAVENOUS PRN lisinopril 20 mg tab(s) (ZESTRIL) 20 mg ORAL DAILY acetaminophen 975 mg tab(s) (TYLENOL) 975 mg ORAL QID metoprolol succinate ER 50 mg tab(s) (TOPROL XL) 50 mg ORAL DAILY ondansetron 4 mg tab(s) (ZOFRAN) 4 mg ORAL q 6 H PRN Or ondansetron (PF) 4 mg injection (ZOFRAN) 4 mg INTRAVENOUS q 6 H PRN oxyCODONE IR 2.5-5 mg tab(s) (ROXICODONE) 2.5-5 mg ORAL q 4 H PRN senna-docusate 8.6-50 mg 1 tablet (SENNA-S) 1 tablet ORAL BID Labs: Recent Labs 12/30/24 0259 12/29/24 0315 12/28/24 0314 NA 133* 136 132* K 4.0 4.1 4.1 CHLOR 100 100 98 CO2 23 23 23 BUN 14 13 10 CREAT 0.69* 0.76 0.66* GLUC 94 96 95 ANION 10 13 11 CA 8.6 9.0 8.6 MG -- -- 1.9 P -- -- 3.6 WBC 5.20 5.22 5.19 HB 14.3 14.3 14.1 HCT 42.0 42.3 41.4 PLT 224 234 207 Imaging: IMPRESSION: Compared to 12/25/2024 CT, slight interval decrease in the size of the right parasagittal/right tentorial subdural hemorrhage component. No significant change in the density volume or morphology small volume right cerebral convexity subdural hematoma which measures 8 mm maximum thickness coronal image 22. Small volume subdural hemorrhage and lateral left posterior fossa axial image [address] evidence of developing obstructive hydrocephalus. No change in morphology ventricular system with asymmetric compression on the right lateral ventricle Hypoid Gear Tester: PONCE Transcribe Date/Time: Dec 26 2024 7:40A Exam: GENERAL: No distress, Alert NEURO: Neuro : A+O x3, PERRL, makes eye contact, speech clear, cranial nerves 2-12 grossly intact , Right Left Shoulder ABduction (C5/C6) 5/5 1/5 Elbow flexion (C5/C6) 5/5 1/5 Elbow extension (C7/C8) 5/5 1/5 Wrist extension (C6/C7) 5/5 1/5 Manager Of Construction (C8/T1) 5/5 3/5 Intrinsics (C8/T1) 5/5 1/5 Hip flexion (L2/3) 5/5 0/5 Knee extension (L3/4) 5/5 0/5 Knee flexion (L5/S1) 5/5 0/5 EHL (L5) 5/5 0/5 Dorsiflexion (L4) 5/5 0/5 Plantarflexion (S1/S2) 5/5 0/5 HEENT: normocephalic, atraumatic LUNGS: Unlabored breathing CARDIAC: Regular rate and rhythm as above ABDOMEN: Soft, non-tender, non-distended EXTREMITIES: HELMS, No deformities, No edema SKIN: Skin color, texture, turgor normal, No rashes or lesions ASSESSMENT AND PLAN: Active Hospital Problems Diagnosis Date Noted SDH (subdural hematoma) (HCC) 12/23/2024 Assessment AND Plan Note: CTH revealed acute right parafalcine SDH. S/p fall with posterior head trauma Kcentra for reversal of xarelto at OSH. NSGY following for possible evac Acute left hemiparesis (HCC) 12/25/2024 Assessment AND Plan Note: Initially presented with LLE weakness O/N (12/25) developed LUE weakness Etiology unclear NSGY does not feel LUE weakness is r/t SDH ?stroke in the setting of afib with OAC held 2/2 SDH ?seizure with todds paralysis ? Musculoskeletal given pt reports remote shoulder injury but denies pain at this time Plan: Repeat MRI brain to r/o stroke- pending [facility] in am of 12/26 No EEG SZ on 12/26 BEM check Continue to hold AC/AP Keppra 1000mg BID for 14 doses Hold DVT PPX chemo- may start 48hrs post stable scan Trauma 12/23/2024 Fall 12/23/2024 Current use of group home anticoagulation 12/23/2024 Scalp abrasion 12/23/2024 Neuropathy 12/23/2024 Left leg weakness 12/23/2024 Primary hypertension 12/23/2024 Chronic Chronic atrial fibrillation (HCC) 12/23/2024 Chronic Mr. Yañez is a 84 y/o male with hx of afib on Xarelto and HTN who presents from OSH post fall. CT head indicated left (more content not included)... Normal [facility] 25(OH)D3 SerPl-mCncon 2024 25-hydroxyvitamin D3 [Mass/Vol] 16.4 ng/mL Low >=30.0 [facility] Comment on above: Order Comment: Speci men Type: BLOOD SPECIMENOrdering Facility: [facility] Address: [address] [place] [address] Result Comment: Clas sification of 25 [place] Vitamin D status: Deficiency: <= 20.0 ng/ml. Insufficiency: 21.0-29.0 ng/ml. Sufficiency: >= 30.0 ng/ml. Performed By: #### 1 989-3 ####[facility] LABORATORYCLIA [id number] [place] [address] [place] Basic metabolic 2000 panelon 12-29-2024 Anion gap [Moles/Vol] 13 mmol/L Normal 8-15 [facility] Comment on above: Order Comment: Speci men Type: BLOOD SPECIMENOrdering Facility: [facility] Address: [address] [place] [address] Performed By: #### 2 4321-2 ####[facility]ATORYCLIA [id number] [place] [address] [place] Calcium [Mass/Vol] 9.0 mg/dL Normal 8.5-10.2 [facility] Comment on above: Order Comment: Speci men Type: BLOOD SPECIMENOrdering Facility: [facility] Address: [address] [place] [address] Performed By: #### 2 4321-2 ####[facility]ATORYCLIA [id number] [place] [address] [place] Chloride [Moles/Vol] 100 mmol/L Normal 98-107 [facility] Comment on above: Order Comment: Speci men Type: BLOOD SPECIMENOrdering Facility: [facility] Address: [address] [place] [address] Performed By: #### 2 4321-2 ####[facility]ATORYCLIA [id number] [place] [address] [place] CO2 [Moles/Vol] 23 mmol/L Normal 22-30 [facility] Comment on above: Order Comment: Speci men Type: BLOOD SPECIMENOrdering Facility: [facility] Address: [address] [place] [address] Performed By: #### 2 4321-2 ####[facility]CL[facility] [id number] [place] [id number] [place] [facility] Creatinine [Mass/Vol] 0.76 mg/dL Normal 0.73-1.22 [facility] Comment on above: Order Comment: Vaishnavi mansfield Type: BLOOD SPECIMENOrdering Facility: [facility] Address: [address] [place] [address] Performed By: #### 2 4321-2 ####[facility] LAB[facility]ATORYCLIA [id number] [address] Creatinine and Glomerular filtration rate.predicted panel (S/P/Bld) 90 mL/min/1.73m??? Normal >=60 [facility] Comment on above: Order Comment: Vaishnavi mansfield Type: BLOOD SPECIMENOrdering Facility: [facility] Address: [address] [place] [address] Result Comment: Rhea mated Glomerular Filtration Rate (eGFR) is calculated using the 2020 CKD-EPI creatinine equation. This equation utilizes serum creatinine, sex, and age as parameters. The creatinine assay has traceable calibration to isotope dilution-mass spectrometry. Refer to KDIGO guidelines for clinical interpretation. In patients with unstable renal function, e.g. those with acute kidney injury, the eGFR may not accurately reflect actual GFR. Performed By: #### 2 4321-2 ####[facility] LABORATORYCLIA [id number] [address] [place] [facility] Glucose [Mass/Vol] 96 mg/dL Normal 74-99 [facility] Comment on above: Order Comment: Vaishnavi mansfield Type: BLOOD SPECIMENOrdering Facility: [facility] Address: [address] [place] [address] Result Comment: The [place] Diabetes Association (ADA) provides guidance for cutoff values for fasting glucose and random glucose. The ADA defines fasting as no caloric intake for at least 8 hours. Fasting plasma glucose results between 100 to 125 mg/dL indicate increased risk for diabetes (prediabetes). Fasting plasma glucose results greater than or equal to 126 mg/dL meet the criteria for diagnosis of diabetes. In the absence of unequivocal hyperglycemia, results should be confirmed by repeat testing. In a patient with classic symptoms of hyperglycemia or hyperglycemic crisis, random plasma glucose results greater than or equal to 200 mg/dL meet the criteria for diagnosis of diabetes. Reference: Standards of Medical Care in Diabetes 2016, [place] [employer]. Diabetes Care. 2016.39(Suppl 1). Performed By: #### 2 4321-2 ####[facility] LABORATORYCLIA [id number] [address] Potassium [Moles/Vol] 4.1 mmol/L Normal 3.7-5.1 [facility] Comment on above: Order Comment: Vaishnavi mansfield Type: BLOOD SPECIMENOrdering Facility: [facility] [facility] Address: [address] [place] [address] Performed By: #### 2 4321-2 ####[facility] LABORATORYCLIA [id number] [address] Sodium [Moles/Vol] 136 mmol/L Normal 136-144 [facility] Comment on above: Order Comment: Vaishnavi mansfield Type: BLOOD SPECIMENOrdering Facility: [facility] Address: [address] [place] [address] Performed By: #### 2 4321-2 ####[facility] LABORATORYCLIA [id number] [address] STATES [facility] Urea nitrogen [Mass/Vol] 13 mg/dL Normal 9-24 [facility] Comment on above: Order Comment: Vaishnavi mansfield Type: BLOOD SPECIMENOrdering Facility: [facility] Address: [address] [place] [address] Performed By: #### 2 4321-2 ####[facility] LABORATORYCLIA [id number] [address] CBC panel Auto (Bld)on 12-29 Erythrocyte distribution width (RBC) [Ratio] 13.8 % Normal 11.5-15.0 [facility] Comment on above: Order Comment: Vaishnavi mansfield Type: BLOOD SPECIMENOrdering Facility: [facility] Address: [address] [place] [address] Performed By: #### 5 8410-2 ####[facility] LABORATORYCLIA [id number] [address] Hematocrit (Bld) [Volume fraction] 42.3 % Normal 39.0-51.0 [facility] Comment on above: Order Comment: Speci men Type: BLOOD SPECIMENOrdering Facility: [facility] Address: [address] [place] [address] Performed By: #### 5 8410-2 ####[facility] LABORATORYCLIA [id number] [address] Hemoglobin (Bld) [Mass/Vol] 14.3 g/dL Normal 13.0-17.0 [facility] Comment on above: Order Comment: Speci men Type: BLOOD SPECIMENOrdering Facility: [facility] Address: [address] [place] [address] Performed By: #### 5 8410-2 ####[facility] LAB[facility]ATORYCLIA [id number] [address] MCH (RBC) [Entitic mass] 30.6 pg Normal 26.0-34.0 [facility] Comment on above: Order Comment: Speci men Type: BLOOD SPECIMENOrdering Facility: [facility] Address: [address] [place] [address] Performed By: #### 5 8410-2 ####[facility] LABORATORYCLIA [id number] [address] OF [facility] MCHC (RBC) [Mass/Vol] 33.8 g/dL Normal 30.5-36.0 [facility] Comment on above: Order Comment: Speci men Type: BLOOD SPECIMENOrdering Facility: [facility] Address: [address] [place] [address] Performed By: #### 5 8410-2 ####[facility]ATORYCLIA [id number] [address] MCV (RBC) [Entitic vol] 90.6 fL Normal 80.0-100.0 [facility] Comment on above: Order Comment: Speci men Type: BLOOD SPECIMENOrdering Facility: [facility] Address: [address] [place] [address] Performed By: #### 5 8410-2 ####[facility] LAB[facility]ATORYCLIA [id number] [place] [address] [place] Nucleated RBC (Bld) [#/Vol] 10*3/uL Normal <0.01 [facility] Comment on above: Order Comment: Speci men Type: BLOOD SPECIMENOrdering Facility: [facility] Address: [address] [place] [address] Performed By: #### 5 8410-2 ####[facility] LAB[facility]ATORYCLIA [id number] [address] [place] Platelet mean volume (Bld) [Entitic vol] 11.4 fL Normal 9.0-12.7 [facility] Comment on above: Order Comment: Speci men Type: BLOOD SPECIMENOrdering Facility: [facility] Address: [address] [place] [address] Performed By: #### 5 8410-2 ####[facility]ATORYCLIA [id number] [address] [place] Platelets (Bld) [#/Vol] 234 10*3/uL Normal 150-400 [facility] Comment on above: Order Comment: Speci men Type: BLOOD SPECIMENOrdering Facility: [facility] Address: [address] [place] [address] Performed By: #### 5 8410-2 ####[facility]ATORYCLIA [id number] [place] [address] [place] RBC (Bld) [#/Vol] 4.67 10*6/uL Normal 4.20-6.00 [facility] Comment on above: Order Comment: Speci men Type: BLOOD SPECIMENOrdering Facility: [facility] Address: [address] [place] [address] Performed By: #### 5 8410-2 ####[facility] LAB[facility]ATORYCLIA [id number] [place] [address] [facility] WBC (Bld) [#/Vol] 5.22 10*3/uL Normal 3.70-11.00 [facility] Comment on above: Order Comment: Speci men Type: BLOOD SPECIMENOrdering Facility: [facility] Address: [address] [place] [address] [place] [address] Performed By: #### 5 8410-2 ####[facility] LABORATORYCLIA [id number] [place] [address] [facility] CONSULT PROGon 12-29-2024 CONSULT PROG HNO ID: [id number] Author: PAULO XIONG APRN.CNP Service: Neurosurgery Author Type: Nurse Practitioner Type: Consult Progress Note Filed: 12/29/2024 09:15 Note Text: Neurosurgery Progress Note SERVICE DATE: 12/29/2024 SUBJECTIVE: NAEON. Patient lying in bed awake. Denies headache or dizziness. Endorses desire to get to rehab. OBJECTIVE: Vitals: Temp (24hrs), Av.9 ?C (98.4 ?F), Min:36.7 ?C (98 ?F), Max:37.1 ?C (98.8 ?F) BP 136/82 Pulse 95 Temp 37.1 ?C (98.8 ?F) (Oral) Resp 18 Ht 190.5 cm (6' 3) Wt 97.8 kg (215 lb 9.8 oz) SpO2 90% BMI 26.95 kg/m? O2 Therapy: Room Air IANDO: Date 12/28/24699 - 12/29/2465812/29/24699 - 12/30/24 0659 Shift 4478-2832 8771-3896 2431-5210 24 Hour Total 8889-7164 9465-6316 5288-6582 24 Hour Total INTAKE PO 200 200 400 PO 200 200 400 IV 300 300 Volume (mL) (magnesium sulfate iv piggyback in sterile water 2 g 50 mL) 50 50 Volume (mL) (sodium phosphate 30 mmol in D5W 250 mL) 250 250 Shift Total 500 200 700 OUTPUT Urine 100 1000 1100 Urine Not Saved. 1 x 1 x Output ( External Collection Device 12/24/24 1500 [facility]) 100 1000 1100 # of BMs Stool Incontinence 1 x 1 x Number of BMs 1 x 1 x Shift Total 100 1000 1100 Weight (kg) 97.8 97.8 97.8 97.8 97.8 97.8 97.8 97.8 MEDICATIONS Current Facility-Administere d Medications Medication Dose Route Frequency cyclobenzaprine 5 mg tab(s) (FLEXERIL) 5 mg ORAL TID PRN heparin 5,000 Units injection 5,000 Units SUBCUTANEOUS q 8 H NaCl 0.9% iv flush bag 20 mL INTRAVENOUS PRN lisinopril 20 mg tab(s) (ZESTRIL) 20 mg ORAL DAILY acetaminophen 975 mg tab(s) (TYLENOL) 975 mg ORAL QID metoprolol succinate ER 50 mg tab(s) (TOPROL XL) 50 mg ORAL DAILY ondansetron 4 mg tab(s) (ZOFRAN) 4 mg ORAL q 6 H PRN Or ondansetron (PF) 4 mg injection (ZOFRAN) 4 mg INTRAVENOUS q 6 H PRN oxyCODONE IR 2.5-5 mg tab(s) (ROXICODONE) 2.5-5 mg ORAL q 4 H PRN senna-docusate 8.6-50 mg 1 tablet (SENNA-S) 1 tablet ORAL BID levETIRAcetam 1,000 mg tab(s) (KEPPRA) 1,000 mg ORAL BID Labs: Recent Labs 12/29/24 0315 12/28/24 0314 12/27/24 0244 NA 136 132* 134* K 4.1 4.1 4.2 CHLOR 100 98 99 CO2 23 23 26 BUN 13 10 10 CREAT 0.76 0.66* 0.75 GLUC 96 95 107* ANION 13 11 9 CA 9.0 8.6 8.9 MG -- 1.9 2.1 P -- 3.6 3.9 WBC 5.22 5.19 6.06 HB 14.3 14.1 14.2 HCT 42.3 41.4 42.3 PLT 234 207 224 Exam: GENERAL: Awake and alert; NAD; cooperative; pleasant NEURO: Orientedx3; speech clear and fluent; HELMS; no arm drift STRENGTH: 5/5 RUE/RLE; LUE 3/5, LLE 0/5 able to wiggle toes HEENT: Normocephalic; atraumatic; perrl/eomi; no facial droop LUNGS: Unlabored breathing CARDIAC: Rate and rhythm as above ABDOMEN: Soft, non-tender, non-distended EXTREMITIES: No deformities, No edema SKIN: Skin color normal; Temperature normal; no rashes or lesions ASSESSMENT AND PLAN: Active Hospital Problems Diagnosis Date Noted SDH (subdural hematoma) (HCC) 12/23/2024 Assessment AND Plan Note: CTH revealed acute right parafalcine SDH. S/p fall with posterior head trauma Kcentra for reversal of xarelto at OSH. NSGY following for possible evac Acute left hemiparesis (HCC) 12/25/2024 Assessment AND Plan Note: Initially presented with LLE weakness O/N (12/25) developed LUE weakness Etiology unclear NSGY does not feel LUE weakness is r/t SDH ?stroke in the setting of afib with OAC held 2/2 SDH ?seizure with todds paralysis ? Musculoskeletal given pt reports remote shoulder injury but denies pain at this time Plan: Repeat MRI brain to r/o stroke- pending [facility] in am of 12/26 No EEG SZ on 12/26 BEM check Continue to hold AC/AP Keppra 1000mg BID for 14 doses Hold DVT PPX chemo- may start 48hrs post stable scan Trauma 12/23/2024 Fall 12/23/2024 Current use of group home anticoagulation 12/23/2024 Scalp abrasion 12/23/2024 Neuropathy 12/23/2024 Left leg weakness 12/23/2024 Primary hypertension 12/23/2024 Chronic Chronic atrial fibrillation (HCC) 12/23/2024 Chronic Mr. Yañez is a 84 y/o male with hx of afib on Xarelto and HTN who presents from OSH post fall. CT head indicated left SDH and falx SDH. -neuro as above- alert and oriented continued left side weakness -neuro checks Q4hrs -CT head stable with decrease in size of SDH; [address] head; 2 MRI Brain -Keppra 1g BID for 7 days seizure ppx -DVT PPx: Hep SQ -HOB >30 -dispo: pending, patient and spouse requesting [facility] -discussed with Dr. Padilla Parts of this note may have been copied from one of my previous notes and remain pertinent. The documentation has been reviewed and edited as necessary to support the clinical decision making for today's visit. SIGNATURE: Paulo Xiong APRN.CNP PATIENT NAME: Sung Yañez DATE: December 29, 2024 TIME: 9:09 AM Pager: [phone] Normal [facility] THERAPY NTon 12-29-2024 THERAPY NT HNO ID: [id number] Author: SCOOBY GEIGER, FLORENCIOR/L Service: Occupational Therapy Author Type: Occupational Therapist Type: Therapy (PT/OT/Speech/Resp) Filed: 12/29/2024 15:40 Note Text: Occupational Therapy Treatment Summary SERVICE DATE: 12/29/2024 SERVICE TIME: 1434 to 1459 ROOM: [place] [address] OT 6 Clicks Score: 10 DISCHARGE RECOMMENDATIONS Acute Rehab Recommended Discharge Disposition Comments: Pt currently functioning well below functional baseline at this time and reuqires increased assist with all ADl sand functional transfers. REcommending [facility] for continued skilled therapy services. Anticipate that pt will tolerate 3 hours of therapy a day. Recommended Discharge Disposition Due to: Patient requires daily (5x/week) skilled therapy at next level of care., Patient requires active, intensive rehabilitation by multiple therapy disciplines. Anticipate the patient will tolerate 3 hours of therapy per day., ADL impairment, Functional status decline, Requires multiple therapy disciplines, Cognitive deficits new/worsened ASSESSMENT Response to Therapy Interventions: Low Activity Tolerance Patient is still significantly below baseline in ADLs and functional mobility due to generalized weakness, L sided deficits, low activity tolerance, cognitive deficits, and balance deficits. Patient requiring total assistance for toileting after incontinent BM this date. Max A required for UB dressing. Patient is unable to safely return home at this time and requires continued OT services to increase independence in ADLs. PRECAUTIONS Fall Risk, Bed/Chair Alarm CURRENT HOSPITAL COURSE presented to [facility] from OSH s/p fall with posterior head trauma and LLE weakness. CTH revealed acute right parafalcine SDH. Pt treated with Kcentra for reversal of xarelto at OSH. NSGY d/w pt and family sx evac of SDH Relevant Past Medical History: PMHx significant for HTN, afib on Xarelto, BPH, DDD, and melanoma HOME LIVING Patient Lives With: Spouse Assistance Available: 24-Hour Entry To Home: Stairs Number Of Stairs Into Home: 1 Number Of Stairs To Bed/Bath: 0 PRIOR FUNCTIONAL LEVEL Within Functional Limits Normally fully independent Baseline Cognition: Oriented to self, Oriented to place, Oriented to time, Oriented to situation SUBJECTIVE patient fatigued but agreeable to OT session COGNITION Orientation Deficits: Not oriented to Time Responsiveness: Awake, Drowsy Follows Commands: 1-step Commands Cueing to Follow Commands: Minimum Executive Function Deficits: Sequencing, Safety Awareness, Problem Solving, Insight to Deficits Confusion Assessment Method (CAM - ICU Score): Negative (12/26/24) THERAPY DIAGNOSIS Decreased activities of daily living (ADL), Reduced mobility-other, Muscle Weakness (generalized), Unsteadiness on feet, General symptoms and signs-other, Lack of coordination-other, Signs and Symptoms Involving Cognitive Functions and Awareness TREATMENT INTERVENTIONS Self Usp Management (59182) Timed Code Treatment (minutes): 25 Skilled Treatment Time (minutes): 25 Self Usp Management (85921) Treatment Minutes: 25 $ Self Usp Management (13708) Billed Units: 2 units TRAINING AND EDUCATION PROVIDED Activity Adaptation/Compensat ory Strategies, Bed Mobility, Lower Extremity Bathing, Role of Occupational Therapy, Safety/Judgment, Positioning, Toileting , Upper Extremity Dressing THERAPEUTIC SKILLS USED Activity Dosing, Assessment of Tolerance Including Vitals Response to Activity, Cues for Sequencing/Proper Technique for Activity, Cuing Tactile, Cuing Verbal, Cuing Visual, Movement Facilitation, Therapeutic Use of Self, Physical Assist FUNCTIONAL STATUS mobility performed during session in bold, other mobility completed during prior session and may no longer be correct or appropriate to complete. Activities of Daily Living Assist Level Additional Information Feeding Moderate Assistance Grooming Maximal Assistance Bathing Upper Body Maximal Assistance Bathing Lower Body Total Assistance, Additional Information dependence to complete lower body bathing bed level after incontinent BM Dressing Upper Body Maximal Assistance, Additional Information doffing soiled gown and donning new gown with max A and cues for RUE placement Dressing Lower Body Maximal Assistance Toileting Total Assistance, Additional Information pt. with large incontinent BM, required total dependence for posterior hygiene bed level Mobility Assist Level Additional Information Bed Mobility Rolling: Maximal Assistance, Additional Information max A to roll to each side, pt able to assist with rolling to L side using RUE on bed rail Supine To Sit: Maximal Assistance Sit To Supine: Maximal Assistance Sit to Stand Maximal Assistance Stand to Sit Maximal Assistance Bed to Chair Toilet/Commode Shower Functional Mobility GOALS Feeding with: Modified Independ (more content not included)... Normal [facility] Basic metabolic 2000 panelon 12-28-2024 Anion gap [Moles/Vol] 11 mmol/L Normal 8-15 [facility] Comment on above: Order Comment: Speci men Type: BLOOD SPECIMENOrdering Facility: [facility] Address: [address] [place] [address] Performed By: #### 1 9123-9, 277-, 62834-8 ####[facility] LABORATORYCLIA [id number] [place] [address] [place] Calcium [Mass/Vol] 8.6 mg/dL Normal 8.5-10.2 [facility] Comment on above: Order Comment: Speci men Type: BLOOD SPECIMENOrdering Facility: [facility] Address: [address] [place] [address] Performed By: #### 1 9123-9, 27712-24, 48737-5 ####[facility] LABORATORYCLIA [id number] [place] [address] [place] Chloride [Moles/Vol] 98 mmol/L Normal 98-107 [facility] Comment on above: Order Comment: Speci men Type: BLOOD SPECIMENOrdering Facility: [facility] Address: [address] [place] [address] Performed By: #### 1 9123-9, 27712-24, 25408-5 ####[facility] LABORATORYCLIA [id number] [place] [address] [place] CO2 [Moles/Vol] 23 mmol/L Normal 22-30 [facility] Comment on above: Order Comment: Speci men Type: BLOOD SPECIMENOrdering Facility: [facility] Address: [address] [place] [address] Performed By: #### 1 9123-9, 2777-1, 94876-2 ####[facility] LABORATORYCLIA [id number] [place] [address] [place] Creatinine [Mass/Vol] 0.66 mg/dL Low 0.73-1.22 [facility] Comment on above: Order Comment: Vaishnavi mansfield Type: BLOOD SPECIMENOrdering Facility: [facility] Address: [address] [place] [address] Performed By: #### 1 9123-9, 2777-1, 26582-5 ####[facility] LABORATORYCLIA [id number] [address] Creatinine and Glomerular filtration rate.predicted panel (S/P/Bld) 94 mL/min/1.73m??? Normal >=60 [facility] Comment on above: Order Comment: Vaishnavi mansfield Type: BLOOD SPECIMENOrdering Facility: [facility] Address: [address] [place] [address] Result Comment: Rhea mated Glomerular Filtration Rate (eGFR) is calculated using the 2020 CKD-EPI creatinine equation. This equation utilizes serum creatinine, sex, and age as parameters. The creatinine assay has traceable calibration to isotope dilution-mass spectrometry. Refer to KDIGO guidelines for clinical interpretation. In patients with unstable renal function, e.g. those with acute kidney injury, the eGFR may not accurately reflect actual GFR. Performed By: #### 1 9123-9, 2777-1, 39493-8 ####[facility] LABORATORYCLIA [id number] [address] OF [facility] Glucose [Mass/Vol] 95 mg/dL Normal 74-99 [facility] Comment on above: Order Comment: Vaishnavi mansfield Type: BLOOD SPECIMENOrdering Facility: [facility] Address: [address] [place] [address] Result Comment: The [place] Diabetes Association (ADA) provides guidance for cutoff values for fasting glucose and random glucose. The ADA defines fasting as no caloric intake for at least 8 hours. Fasting plasma glucose results between 100 to 125 mg/dL indicate increased risk for diabetes (prediabetes). Fasting plasma glucose results greater than or equal to 126 mg/dL meet the criteria for diagnosis of diabetes. In the absence of unequivocal hyperglycemia, results should be confirmed by repeat testing. In a patient with classic symptoms of hyperglycemia or hyperglycemic crisis, random plasma glucose results greater than or equal to 200 mg/dL meet the criteria for diagnosis of diabetes. Reference: Standards of Medical Care in Diabetes 2016, [place] [employer] Association. Diabetes Care. 2016.39(Suppl 1). Performed By: #### 1 9123-9, 2777-1, 62615-7 ####[facility] LABORATORYCLIA [id number] [place] [address] [place] Potassium [Moles/Vol] 4.1 mmol/L Normal 3.7-5.1 [facility] Comment on above: Order Comment: Vaishnavi mansfield Type: BLOOD SPECIMENOrdering Facility: [facility] Address: [address] [place] [address] Performed By: #### 1 9123-9, 2777, 08701-2 ####[facility]CL[facility] [id number] [address] [place] Sodium [Moles/Vol] 132 mmol/L Low 136-144 [facility] Comment on above: Order Comment: Vaishnavi mansfield Type: BLOOD SPECIMENOrdering Facility: [facility] Address: [address] [place] [address] Performed By: #### 1 9123-9, 27712-24, 39259-1 ####[facility] LABORATORYCLIA [id number] [address] [place] Urea nitrogen [Mass/Vol] 10 mg/dL Normal 9-24 [facility] Comment on above: Order Comment: Vaishnavi mansfield Type: BLOOD SPECIMENOrdering Facility: [facility] Address: [address] [place] [address] Performed By: #### 1 9123-9, 27712-24, 14081-0 ####[facility] LABORATORYCLIA [id number] [place] [id number] [place] CBC panel Auto (Bld)on 12-28 Erythrocyte distribution width (RBC) [Ratio] 13.6 % Normal 11.5-15.0 [facility] Comment on above: Order Comment: Vaishnavi mansfield Type: BLOOD SPECIMENOrdering Facility: [facility] Address: [address] [place] [address] Performed By: #### 5 8410-2 ####[facility] LABORATORYCLIA [id number] [address] Hematocrit (Bld) [Volume fraction] 41.4 % Normal 39.0-51.0 [facility] Comment on above: Order Comment: Speci men Type: BLOOD SPECIMENOrdering Facility: [facility] Address: [address] [place] [address] Performed By: #### 5 8410-2 ####[facility] LABORATORYCLIA [id number] [address] OF [facility] Hemoglobin (Bld) [Mass/Vol] 14.1 g/dL Normal 13.0-17.0 [facility] Comment on above: Order Comment: Speci men Type: BLOOD SPECIMENOrdering Facility: [facility] Address: [address] [place] [address] Performed By: #### 5 8410-2 ####[facility] LABORATORYCLIA [id number] [address] OF [facility] MCH (RBC) [Entitic mass] 30.6 pg Normal 26.0-34.0 [facility] Comment on above: Order Comment: Speci men Type: BLOOD SPECIMENOrdering Facility: [facility] Address: [address] [place] [address] Performed By: #### 5 8410-2 ####[facility]ATORYCLIA [id number] [address] [place] MCHC (RBC) [Mass/Vol] 34.1 g/dL Normal 30.5-36.0 [facility] Comment on above: Order Comment: Speci men Type: BLOOD SPECIMENOrdering Facility: [facility] Address: [address] [place] [address] Performed By: #### 5 8410-2 ####[facility] LABORATORYCLIA [id number] [address] [place] MCV (RBC) [Entitic vol] 89.8 fL Normal 80.0-100.0 [facility] Comment on above: Order Comment: Speci men Type: BLOOD SPECIMENOrdering Facility: [facility] Address: [address] [place] [address] Performed By: #### 5 8410-2 ####[facility]ORATORYCLIA [id number] [address] [place] Nucleated RBC (Bld) [#/Vol] 10*3/uL Normal <0.01 [facility] Comment on above: Order Comment: Speci men Type: BLOOD SPECIMENOrdering Facility: [facility] Address: [address] [place] [address] Performed By: #### 5 8410-2 ####[facility] LABORATORYCLIA [id number] [address] [place] Platelet mean volume (Bld) [Entitic vol] 11.0 fL Normal 9.0-12.7 [facility] Comment on above: Order Comment: Speci men Type: BLOOD SPECIMENOrdering Facility: [facility] Address: [address] [place] [address] Performed By: #### 5 8410-2 ####[facility]ORATORYCLIA [id number] [address] [place] Platelets (Bld) [#/Vol] 207 10*3/uL Normal 150-400 [facility] Comment on above: Order Comment: Speci men Type: BLOOD SPECIMENOrdering Facility: [facility] Address: [address] [place] [address] Performed By: #### 5 8410-2 ####[facility]ATORYCLIA [id number] [address] [place] RBC (Bld) [#/Vol] 4.61 10*6/uL Normal 4.20-6.00 [facility] Comment on above: Order Comment: Speci men Type: BLOOD SPECIMENOrdering Facility: [facility] Address: [address] [place] [address] Performed By: #### 5 8410-2 ####[facility] LABORATORYCLIA [id number] [place] [address] [facility] WBC (Bld) [#/Vol] 5.19 10*3/uL Normal 3.70-11.00 [facility] Comment on above: Order Comment: Speci men Type: BLOOD SPECIMENOrdering Facility: [facility] Address: [facility] [place] [address] Performed By: #### 5 8410-2 ####[facility] LABORATORYCLIA [id number] [place] [address] [facility] CONSULT PROGon 12-28-2024 CONSULT PROG HNO ID: [id number] Author: PAULO XIONG APRN.TEXTILE ENGINEER Service: Neurosurgery Author Type: Nurse Practitioner Type: Consult Progress Note Filed: 12/28/2024 11:04 Note Text: Neurosurgery Progress Note SERVICE DATE: 12/28/2024 SUBJECTIVE: NAEON. Patient denies headache, dizziness or visual changes. Patient vocalizing some depression with situation of being hospitalized. Spouse is at bedside. Denies left side any worse as far at weakness goes. OBJECTIVE: Vitals: Temp (24hrs), Av.9 ?C (98.4 ?F), Min:36.7 ?C (98.1 ?F), Max:37.3 ?C (99.1 ?F) BP 157/95 Pulse 80 Temp 37 ?C (98.6 ?F) (Oral) Resp 16 Ht 190.5 cm (6' 3) Wt 97.8 kg (215 lb 9.8 oz) SpO2 95% BMI 26.95 kg/m? O2 Therapy: Room Air IANDO: Date 12/27/24699 - 12/28/2465812/28/24699 - 12/29/24 0659 Shift 1327-4946 7006-2902 6007-8664 24 Hour Total 3432-0566 4683-8506 9585-1787 24 Hour Total INTAKE PO 740 240 980 200 200 PO 740 240 980 200 200 IV 450 100 550 300 300 Volume (mL) (magnesium sulfate iv piggyback in sterile water 2 g 50 mL) 50 50 Volume (mL) (calcium gluconate iv piggyback 2 g in NaCl (iso-osmotic) 100 mL) 200 100 300 Volume (mL) (sodium phosphate 30 mmol in D5W 250 mL) 250 250 250 250 Shift Total 1190 872 351 7091 500 500 OUTPUT Urine 950 1200 2150 100 100 Output ( External Collection Device 12/24/24 1500 [facility]) 950 1200 2150 100 100 # of BMs Stool Incontinence 1 x 1 x 2 x Number of BMs 1 x 1 x 2 x Shift Total 950 1200 2150 100 100 Weight (kg) 97.3 97.3 97.8 97.8 97.8 97.8 97.8 97.8 MEDICATIONS Current Facility-Administere d Medications Medication Dose Route Frequency cyclobenzaprine 5 mg tab(s) (FLEXERIL) 5 mg ORAL TID PRN heparin 5,000 Units injection 5,000 Units SUBCUTANEOUS q 8 H phosphorus 250 mg tab(s) (K PHOS NEUTRAL) 250 mg ORAL PC and HS potassium chloride 20-40 mEq oral powder (KLOR-CON) 20-40 mEq ORAL/FEEDING TUBE PRN Or potassium chloride iv piggyback 20 mEq/100 mL 20 mEq INTRAVENOUS PRN sodium phosphate 30 mmol in D5W 250 mL 30 mmol INTRAVENOUS PRN(NO DISPENSE) Or sodium phosphate 45 mmol in D5W 250 mL 45 mmol INTRAVENOUS PRN(NO DISPENSE) magnesium sulfate iv piggyback in sterile water 2 g 50 mL 2 g INTRAVENOUS PRN calcium gluconate iv piggyback 2 g in NaCl (iso-osmotic) 100 mL 2 g INTRAVENOUS PRN(NO DISPENSE) NaCl 0.9% iv flush bag 20 mL INTRAVENOUS PRN lisinopril 20 mg tab(s) (ZESTRIL) 20 mg ORAL DAILY acetaminophen 975 mg tab(s) (TYLENOL) 975 mg ORAL QID metoprolol succinate ER 50 mg tab(s) (TOPROL XL) 50 mg ORAL DAILY ondansetron 4 mg tab(s) (ZOFRAN) 4 mg ORAL q 6 H PRN Or ondansetron (PF) 4 mg injection (ZOFRAN) 4 mg INTRAVENOUS q 6 H PRN oxyCODONE IR 2.5-5 mg tab(s) (ROXICODONE) 2.5-5 mg ORAL q 4 H PRN senna-docusate 8.6-50 mg 1 tablet (SENNA-S) 1 tablet ORAL BID levETIRAcetam 1,000 mg tab(s) (KEPPRA) 1,000 mg ORAL BID Labs: Recent Labs 12/28/24 0314 12/27/24 0244 NA 132* 134* K 4.1 4.2 CHLOR 98 99 CO2 23 26 BUN 10 10 CREAT 0.66* 0.75 GLUC 95 107* ANION 11 9 CA 8.6 8.9 MG 1.9 2.1 P 3.6 3.9 WBC 5.19 6.06 HB 14.1 14.2 HCT 41.4 42.3 PLT 207 224 Exam: GENERAL: Awake and alert; NAD; cooperative; pleasant NEURO: Orientedx3; speech clear and fluent; HELMS; no arm drift STRENGTH: 5/5 RUE/RLE 2/5 LUE with 3/5 ceo and co founder, LLE 2/5 HEENT: Normocephalic; atraumatic; perrl/eomi; no facial droop LUNGS: Unlabored breathing CARDIAC: Rate and rhythm as above ABDOMEN: Soft, non-tender, non-distended EXTREMITIES: No deformities, No edema SKIN: Skin color normal; Temperature normal; no rashes or lesions ASSESSMENT AND PLAN: Active Hospital Problems Diagnosis Date Noted SDH (subdural hematoma) (HCC) 12/23/2024 Assessment AND Plan Note: CTH revealed acute right parafalcine SDH. S/p fall with posterior head trauma Kcentra for reversal of xarelto at OSH. NSGY following for possible evac Acute left hemiparesis (HCC) 12/25/2024 Assessment AND Plan Note: Initially presented with LLE weakness O/N (12/25) developed LUE weakness Etiology unclear NSGY does not feel LUE weakness is r/t SDH ?stroke in the setting of afib with OAC held 2/2 SDH ?seizure with todds paralysis ? Musculoskeletal given pt reports remote shoulder injury but denies pain at this time Plan: [facility] SZ on 12/26 BEM check Continue to hold AC/AP Keppra 1000mg BID for 14 doses Hold DVT PPX chemo- may start 48hrs post stable scan Trauma 12/23/2024 Fall 12/23/2024 Current use of buttermaker anticoagulation 12/23/2024 Scalp abrasion 12/23/2024 Neuropathy 12/23/2024 Left leg weakness 12/23/2024 Primary hypertension 12/23/2024 Chronic Chronic atrial fibrillation (HCC) 12/23/2024 Chronic Mr. Yañez is a 84 y/o male with hx of afib on Xarelto and HTN who presents from OSH post fall. CT head indicated left SDH and falx SDH. -neuro as above- aler (more content not included)... Normal [facility] CONSULT PROG HNO ID: [id number] Author: PARISH ALBRIGHT MD Service: General Surgery Author Type: Physician Type: Consult Progress Note Filed: 12/29/2024 11:15 Note Text: INPATIENT SICU PROGRESS NOTE SERVICE DATE: 12/28/2024 SERVICE TIME: 9:09 AM Subjective Patient seen and examined this morning,no change to weakness, numbness but does report persistent L sided weakness. His pain is well controlled this am. On RA. Reports his LLE jerking has improved. Current Facility-Administere d Medications Medication Dose Route Frequency ondansetron 4 mg tab(s) (ZOFRAN) 4 mg ORAL q 6 H PRN Or ondansetron (PF) 4 mg injection (ZOFRAN) 4 mg INTRAVENOUS q 6 H PRN oxyCODONE IR 2.5-5 mg tab(s) (ROXICODONE) 2.5-5 mg ORAL q 4 H PRN senna-docusate 8.6-50 mg 1 tablet (SENNA-S) 1 tablet ORAL BID levETIRAcetam 1,000 mg tab(s) (KEPPRA) 1,000 mg ORAL BID lisinopril 20 mg tab(s) (ZESTRIL) 20 mg ORAL DAILY acetaminophen 975 mg tab(s) (TYLENOL) 975 mg ORAL QID metoprolol succinate ER 50 mg tab(s) (TOPROL XL) 50 mg ORAL DAILY potassium chloride 20-40 mEq oral powder (KLOR-CON) 20-40 mEq ORAL/FEEDING TUBE PRN Or potassium chloride iv piggyback 20 mEq/100 mL 20 mEq INTRAVENOUS PRN sodium phosphate 30 mmol in D5W 250 mL 30 mmol INTRAVENOUS PRN(NO DISPENSE) Or sodium phosphate 45 mmol in D5W 250 mL 45 mmol INTRAVENOUS PRN(NO DISPENSE) magnesium sulfate iv piggyback in sterile water 2 g 50 mL 2 g INTRAVENOUS PRN calcium gluconate iv piggyback 2 g in NaCl (iso-osmotic) 100 mL 2 g INTRAVENOUS PRN(NO DISPENSE) NaCl 0.9% iv flush bag 20 mL INTRAVENOUS PRN heparin 5,000 Units injection 5,000 Units SUBCUTANEOUS q 8 H phosphorus 250 mg tab(s) (K PHOS NEUTRAL) 250 mg ORAL PC and HS cyclobenzaprine 5 mg tab(s) (FLEXERIL) 5 mg ORAL TID PRN Objective VITAL SIGNS BP 178/94 Pulse 78 Temp (Src) 98.6 (Oral) Resp 14 Ht 6' 3 (1.91m) Wt 215 lb 9.8 oz (97.8kg) SpO2 98% BMI 26.95 kg/(m2). O2 Therapy: Room Air Temp (24hrs), Av.9 ?C (98.4 ?F), Min:36.7 ?C (98.1 ?F), Max:37.3 ?C (99.1 ?F) Date 12/27/24699 - 12/28/2465812/28/24 07 - 12/29/24 0659 Shift 5074-8094 1275-1074 5811-0920 24 Hour Total 5724-2497 4284-3385 8139-7291 24 Hour Total INTAKE PO 740 240 980 200 200 PO 740 240 980 200 200 IV 450 100 550 300 300 Volume (mL) (magnesium sulfate iv piggyback in sterile water 2 g 50 mL) 50 50 Volume (mL) (calcium gluconate iv piggyback 2 g in NaCl (iso-osmotic) 100 mL) 200 100 300 Volume (mL) (sodium phosphate 30 mmol in D5W 250 mL) 250 250 250 250 Shift Total 1190 921 908 5907 500 500 OUTPUT Urine 950 1200 2150 100 100 Output ( External Collection Device 12/24/24 1500 [facility]) 950 1200 2150 100 100 # of BMs Stool Incontinence 1 x 1 x 2 x Number of BMs 1 x 1 x 2 x Shift Total 950 1200 2150 100 100 Weight (kg) 97.3 97.3 97.8 97.8 97.8 97.8 97.8 97.8 PHYSICAL EXAM: GENERAL: Alert. No distress. Resting comfortably in bed NEURO: AANDOx3. LLE 0/5 strength dorsiflexion, plantarflexion, hip flexion in LLE. Diminished sensation in LLE, same as prior. HEENT: Normocephalic. Atraumatic. EOMI. LUNGS: Unlabored breathing. Equal excursion bilaterally. CARDIAC: Regular rate, on tele, Good perfusion throughout. ABDOMEN: Soft, non-tender, non-distended. No rebound or guarding. EXTREMITIES: No deformities. LLE decreased strength and movement compared to RLE SKIN: No obvious jaundice or pallor. DATA: Diagnostic tests reviewed for today's visit: No results for input(s): BODSITE, CTYPE, PH, PCO2, PO2, BE, HCO3, CO2CT, O2HB, COHB, MHGB, TEMP, PHTC, PCO2T, PO2T, O2AD in the last 72 hours. 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 Presented to [place] [facility] 3 days later and was transferred to [facility] on 12/23/2024. Admitted to the SICU. rCTH #3 stable. Per NSGY recommendations obtaining rCTH today. Hospital course: 12/23: admit to SICU 12/25: rCTH stable from prior 12/26: 24 EEG negative Neuro: SDH: - Neurosurgery consulted - Neuro exam remains unchanged - q4h NC per NSGY - rCTh #1 - slightly increased size, he will need further repeat CT's to ensure stability - rCTH #2 - stable - rCTH #3 stable - rCTH #4 12/26:stable - MRI brain 12/23- irre (more content not included)... Normal [facility] Calcium.ionized [Moles/Vol]o n 12-28-2024 Calcium.ionized (BldV) [Mass/Vol] 1.16 mmol/L Normal 1.08-1.30 [facility] Comment on above: Order Comment: Speci men Type: BLOOD SPECIMENOrdering Facility: [facility] Address: [address] [place] [address] Performed By: #### 1 995-0 ####[facility] LABORATORYCLIA [id number] [place] [address] [place] Calcium.ionized adjusted to pH 7.4 (Bld) [Moles/Vol] 1.18 mmol/L Normal 1.08-1.30 [facility] Comment on above: Order Comment: Speci men Type: BLOOD SPECIMENOrdering Facility: [facility] Address: [address] [place] [address] Performed By: #### 1 995-0 ####[facility] LABORATORYCLIA [id number] [place] [address] [place] Magnesium SerPl-mCncon 12-28 Magnesium [Mass/Vol] 1.9 mg/dL Normal 1.7-2.3 [facility] Comment on above: Order Comment: Speci men Type: BLOOD SPECIMENOrdering Facility: [facility] Address: [address] [place] [address] Performed By: #### 1 9123-9, 2777-1, 92189-5 ####[facility] LABORATORYCLIA [id number] [place] [address] [place] Phosphate SerPl-mCncon 12-28 Phosphate [Mass/Vol] 3.6 mg/dL Normal 2.7-4.8 [facility] Comment on above: Order Comment: Speci men Type: BLOOD SPECIMENOrdering Facility: [facility] Address: [address] [place] [address] Performed By: #### 1 9123-9, 2777-1, 46207-6 ####[facility] LABORATORYCLIA [id number] [place] [address] [place] Basic metabolic 2000 panelon 12-27-2024 Anion gap [Moles/Vol] 9 mmol/L Normal 8-15 [facility] Comment on above: Order Comment: Speci men Type: BLOOD SPECIMENOrdering Facility: [facility] Address: [address] [place] [address] Performed By: #### 2 4321-2, , 2776- ####[facility]ATORYCLIA [id number] [place] [address] [place] Calcium [Mass/Vol] 8.9 mg/dL Normal 8.5-10.2 [facility] Comment on above: Order Comment: Speci men Type: BLOOD SPECIMENOrdering Facility: [facility] Address: [address] [place] [address] Performed By: #### 2 4321-2, , 2776-06 ####[facility]ATORYCLIA [id number] [place], [place] [address] [place] [address] [place] [facility] Chloride [Moles/Vol] 99 mmol/L Normal 98-107 [facility] Comment on above: Order Comment: Speci men Type: BLOOD SPECIMENOrdering Facility: [facility] Address: [address] [place] [address] Performed By: #### 2 4321-2, , 2776-06 ####[facility]ORYCLIA [id number] [place] [address] [place] CO2 [Moles/Vol] 26 mmol/L Normal 22-30 [facility] Comment on above: Order Comment: Speci men Type: BLOOD SPECIMENOrdering Facility: [facility] Address: [address] [place] [address] Performed By: #### 2 4321-2, , 2776-1 ####[facility]ORYCLIA [id number] [place] [address] [facility] Creatinine [Mass/Vol] 0.75 mg/dL Normal 0.73-1.22 [facility] Comment on above: Order Comment: Vaishnavi [place] Type: BLOOD SPECIMENOrdering Facility: [facility] Address: [address] [place] [address] Performed By: #### 2 4321-2, , 2776-06 ####[facility]ATORYCLIA [id number] [address] Creatinine and Glomerular filtration rate.predicted panel (S/P/Bld) 90 mL/min/1.73m??? Normal >=60 [facility] Comment on above: Order Comment: Vaishnavi [place] Type: BLOOD SPECIMENOrdering Facility: [facility] Address: [address] [place] [address] Result Comment: Rhea mated Glomerular Filtration Rate (eGFR) is calculated using the 2020 CKD-EPI creatinine equation. This equation utilizes serum creatinine, sex, and age as parameters. The creatinine assay has traceable calibration to isotope dilution-mass spectrometry. Refer to KDIGO guidelines for clinical interpretation. In patients with unstable renal function, e.g. those with acute kidney injury, the eGFR may not accurately reflect actual GFR. Performed By: #### 2 4321-2, , 2776-06 ####[facility]ORATORYCLIA [id number] [address] STATES OF [facility] Glucose [Mass/Vol] 107 mg/dL High 74-99 [facility] Comment on above: Order Comment: Vaishnavi [place] Type: BLOOD SPECIMENOrdering Facility: [facility] Address: [address] [place] [address] Result Comment: The [place] Diabetes Association (ADA) provides guidance for cutoff values for fasting glucose and random glucose. The ADA defines fasting as no caloric intake for at least 8 hours. Fasting plasma glucose results between 100 to 125 mg/dL indicate increased risk for diabetes (prediabetes). Fasting plasma glucose results greater than or equal to 126 mg/dL meet the criteria for diagnosis of diabetes. In the absence of unequivocal hyperglycemia, results should be confirmed by repeat testing. In a patient with classic symptoms of hyperglycemia or hyperglycemic crisis, random plasma glucose results greater than or equal to 200 mg/dL meet the criteria for diagnosis of diabetes. Reference: Standards of Medical Care in Diabetes 2016, [place] [employer] Association. Diabetes Care. 2016.39(Suppl 1). Performed By: #### 2 4321-2, , 2776-06 ####[facility] LABORATORYCLIA [id number] [place] [address] [place] Potassium [Moles/Vol] 4.2 mmol/L Normal 3.7-5.1 [facility] Comment on above: Order Comment: Vaishnavi [place] Type: BLOOD SPECIMENOrdering Facility: [facility] Address: [address] [place] [address] Performed By: #### 2 4321-2, , 2776-06 ####[facility]ATORYCLIA [id number] [address] [place] Sodium [Moles/Vol] 134 mmol/L Low 136-144 [facility] Comment on above: Order Comment: Vaishnavi [place] Type: BLOOD SPECIMENOrdering Facility: [facility] Address: [address] [place] [address] Performed By: #### 2 4321-2, , 2776-06 ####[facility]ATORYCLIA [id number] [address] [place] Urea nitrogen [Mass/Vol] 10 mg/dL Normal 9-24 [facility] Comment on above: Order Comment: Lorii men Type: BLOOD SPECIMENOrdering Facility: [facility] Address: [address] [place] [address] Performed By: #### 2 4321-2, , 2776-06 ####[facility]ATORYCLIA [id number] [address] [place] CBC panel Auto (Bld)on 12-27 Erythrocyte distribution width (RBC) [Ratio] 13.3 % Normal 11.5-15.0 [facility] Comment on above: Order Comment: Lorii men Type: BLOOD SPECIMENOrdering Facility: [facility] Address: [address] [place] [address] Performed By: #### 5 8410-2 ####[facility]ORATORYCLIA [id number] [address] OF [facility] Hematocrit (Bld) [Volume fraction] 42.3 % Normal 39.0-51.0 [facility] Comment on above: Order Comment: Speci men Type: BLOOD SPECIMENOrdering Facility: [facility] Address: [address] [place] [address] Performed By: #### 5 8410-2 ####[facility]ATORYCLIA [id number] [address] OF [facility] Hemoglobin (Bld) [Mass/Vol] 14.2 g/dL Normal 13.0-17.0 [facility] Comment on above: Order Comment: Speci men Type: BLOOD SPECIMENOrdering Facility: [facility] Address: [address] [place] [address] Performed By: #### 5 8410-2 ####[facility]ATORYCLIA [id number] [address] STATES OF [facility] MCH (RBC) [Entitic mass] 30.5 pg Normal 26.0-34.0 [facility] Comment on above: Order Comment: Speci men Type: BLOOD SPECIMENOrdering Facility: [facility] Address: [address] [place] [address] Performed By: #### 5 8410-2 ####[facility]ATORYCLIA [id number] [address] [place] MCHC (RBC) [Mass/Vol] 33.6 g/dL Normal 30.5-36.0 [facility] Comment on above: Order Comment: Speci men Type: BLOOD SPECIMENOrdering Facility: [facility] Address: [address] [place] [address] Performed By: #### 5 8410-2 ####[facility]ATORYCLIA [id number] [address] [place] MCV (RBC) [Entitic vol] 90.8 fL Normal 80.0-100.0 [facility] Comment on above: Order Comment: Speci men Type: BLOOD SPECIMENOrdering Facility: [facility] Address: [address] [place] [address] Performed By: #### 5 8410-2 ####[facility]ATORYCLIA [id number] [address] [place] Nucleated RBC (Bld) [#/Vol] 10*3/uL Normal <0.01 [facility] Comment on above: Order Comment: Speci men Type: BLOOD SPECIMENOrdering Facility: [facility] Address: [address] [place] [address] Performed By: #### 5 8410-2 ####[facility]ATORYCLIA [id number] [address] [place] Platelet mean volume (Bld) [Entitic vol] 11.5 fL Normal 9.0-12.7 [facility] Comment on above: Order Comment: Speci men Type: BLOOD SPECIMENOrdering Facility: [facility] Address: [address] [place] [address] Performed By: #### 5 8410-2 ####[facility]ATORYCLIA [id number] [address] [place] Platelets (Bld) [#/Vol] 224 10*3/uL Normal 150-400 [facility] Comment on above: Order Comment: Speci men Type: BLOOD SPECIMENOrdering Facility: [facility] Address: [address] [place] [address] Performed By: #### 5 8410-2 ####[facility]ATORYCLIA [id number] [place] [address] [place] RBC (Bld) [#/Vol] 4.66 10*6/uL Normal 4.20-6.00 [facility] Comment on above: Order Comment: Speci men Type: BLOOD SPECIMENOrdering Facility: [facility] Address: [address] [place] [address] Performed By: #### 5 8410-2 ####[facility] LABORATORYCLIA [id number] [place] [address] [facility] WBC (Bld) [#/Vol] 6.06 10*3/uL Normal 3.70-11.00 [facility] Comment on above: Order Comment: Speci men Type: BLOOD SPECIMENOrdering Facility: [facility] Address: [address] [place] [address] [place] [address] Performed By: #### 5 8410-2 ####[facility] LABORATORYCLIA [id number] [place] [address] [facility] CONSULT PROGon 12-27-2024 CONSULT PROG HNO ID: [id number] Author: PARISH ALBRIGHT MD Service: General Surgery Author Type: Physician Type: Consult Progress Note Filed: 12/27/2024 12:36 Note Text: INPATIENT SICU PROGRESS NOTE SERVICE DATE: 12/27/2024 SERVICE TIME: 8:38 AM Subjective Patient seen and examined this morning, continues to report no change to weakness, numbness but does report persistent L sided weakness. His pain is well controlled this am. On RA. Does report he feels like BLE have been jerking overnight, but not happening when in room Current Facility-Administere d Medications Medication Dose Route Frequency ondansetron 4 mg tab(s) (ZOFRAN) 4 mg ORAL q 6 H PRN Or ondansetron (PF) 4 mg injection (ZOFRAN) 4 mg INTRAVENOUS q 6 H PRN oxyCODONE IR 2.5-5 mg tab(s) (ROXICODONE) 2.5-5 mg ORAL q 4 H PRN senna-docusate 8.6-50 mg 1 tablet (SENNA-S) 1 tablet ORAL BID levETIRAcetam 1,000 mg tab(s) (KEPPRA) 1,000 mg ORAL BID lisinopril 20 mg tab(s) (ZESTRIL) 20 mg ORAL DAILY acetaminophen 975 mg tab(s) (TYLENOL) 975 mg ORAL QID metoprolol succinate ER 50 mg tab(s) (TOPROL XL) 50 mg ORAL DAILY potassium chloride 20-40 mEq oral powder (KLOR-CON) 20-40 mEq ORAL/FEEDING TUBE PRN Or potassium chloride iv piggyback 20 mEq/100 mL 20 mEq INTRAVENOUS PRN sodium phosphate 30 mmol in D5W 250 mL 30 mmol INTRAVENOUS PRN(NO DISPENSE) Or sodium phosphate 45 mmol in D5W 250 mL 45 mmol INTRAVENOUS PRN(NO DISPENSE) magnesium sulfate iv piggyback in sterile water 2 g 50 mL 2 g INTRAVENOUS PRN calcium gluconate iv piggyback 2 g in NaCl (iso-osmotic) 100 mL 2 g INTRAVENOUS PRN(NO DISPENSE) NaCl 0.9% iv flush bag 20 mL INTRAVENOUS PRN heparin 5,000 Units injection 5,000 Units SUBCUTANEOUS q 8 H phosphorus 250 mg tab(s) (K PHOS NEUTRAL) 250 mg ORAL PC and HS cyclobenzaprine 5 mg tab(s) (FLEXERIL) 5 mg ORAL TID PRN Objective VITAL SIGNS BP 165/62 Pulse 86 Temp (Src) 98.4 (Oral) Resp 14 Ht 6' 3 (1.91m) Wt 214 lb 8.1 oz (97.3kg) SpO2 94% BMI 26.81 kg/(m2). O2 Therapy: Room Air Temp (24hrs), Av.9 ?C (98.4 ?F), Min:36.7 ?C (98.1 ?F), Max:37 ?C (98.6 ?F) Date 12/26/24699 - 12/27/24 0659 12/27/24 07 - 12/28/24 0659 Shift 1176-3220 8489-1050 5107-4708 24 Hour Total 9163-0749 7816-9920 5699-3747 24 Hour Total INTAKE PO 521 851 4735 PO 949 310 0380 Shift Total 644 965 4751 OUTPUT Urine 687 387 5766 2650 Urine Incontinence/Not Saved 1 x 1 x Output ( External Collection Device 12/24/24 1500 [facility]) 633 441 1963 2650 Shift Total 170 578 1944 2650 Weight (kg) 99.4 99.4 97.3 97.3 97.3 97.3 97.3 97.3 PHYSICAL EXAM: GENERAL: Alert. No distress. Resting comfortably in bed NEURO: AANDOx3. LLE 0/5 strength dorsiflexion, plantarflexion, hip flexion in LLE. Sensation grossly intact. HEENT: Normocephalic. Atraumatic. EOMI. LUNGS: Unlabored breathing. Equal excursion bilaterally. CARDIAC: Regular rate, on tele, Good perfusion throughout. ABDOMEN: Soft, non-tender, non-distended. No rebound or guarding. : Fowler in place draining CYU EXTREMITIES: No deformities. LLE decreased strength and movement compared to RLE SKIN: No obvious jaundice or pallor. DATA: Diagnostic tests reviewed for today's visit: No results for input(s): BODSITE, CTYPE, PH, PCO2, PO2, BE, HCO3, CO2CT, O2HB, COHB, MHGB, TEMP, PHTC, PCO2T, PO2T, O2AD in the last 72 hours. Recent Labs 12/27/24 0244 12/26/24 0337 12/25/24 0242 CREAT 0.75 0.70* 0.81 BUN 10 11 13 NA 134* 131* 130* K 4.2 4.3 4.4 CHLOR 99 98 100 CO2 26 23 21* ANION 9 10 9 GLUC 107* 95 88 CA 8.9 8.7 8.2* P 3.9 2.9 -- MG 2.1 1.7 -- WBC 6.06 6.33 5.81 HB 14.2 13.9 13.1 HCT 42.3 41.9 41.1 PLT 224 194 176 Assessment AND Plan ACTIVE PROBLEM LIST Family History of Malignant Neoplasm of Gastrointestinal Tract Sdh (Subdural Hematoma) (Hcc) Trauma Fall Current Use of Mcfp Anticoagulation Scalp Abrasion Neuropathy Left Leg Weakness Primary Hypertension Chronic Atrial Fibrillation (Hcc) Acute Left Hemiparesis (Hcc) Assessment This is a 84 year old male s/p mechanical ground level fall on 12/20/2024. Presented to [place] ED 3 days later and was transferred to [facility] on 12/23/2024. Admitted to the SICU. rCTH #3 stable. Per NSGY recommendations obtaining rCTH today. Hospital course: 12/23: admit to SICU 12/25: rCTH stable from prior 12/26: 24 EEG negative Neuro: SDH: - Neurosurgery consulted, appreciate recommendations - Neuro exam remains unchanged - q2h NC w/ pupilometer per NSGY - rCTh #1 - slightly increased size, he will need further repeat CT's to ensure stability - rCTH #2 - stable - rCTH #3 stable - rCTH #4 7/3:stable - MRI brain 12/23- irregular enhancement within collection extrav vs. Spot sign - MRI Brain 12/26: no acute infarct, Stable appearance of the multiple extra-axial hemorrhages along the medial right greater than left falx, overlying th (more content not included)... Normal [facility] Calcium.ionized [Moles/Vol]o n 12-27-2024 Calcium.ionized (BldV) [Mass/Vol] 1.14 mmol/L Normal 1.08-1.30 [facility] Comment on above: Order Comment: Vaishnavi mansfield Type: BLOOD SPECIMENOrdering Facility: [facility] Address: [address] [place] [address] Performed By: #### 1 995-0 ####[facility] LABORATORYCLIA [id number] [place] [address] [place] Calcium.ionized adjusted to pH 7.4 (Bld) [Moles/Vol] 1.13 mmol/L Normal 1.08-1.30 [facility] Comment on above: Order Comment: Vaishnavi mansfield Type: BLOOD SPECIMENOrdering Facility: [facility] Address: [address] [place] [address] Performed By: #### 1 995-0 ####[facility] LABORATORYCLIA [id number] [place] [address] [place] Magnesium SerPl-mCncon 12-27 Magnesium [Mass/Vol] 2.1 mg/dL Normal 1.7-2.3 [facility] Comment on above: Order Comment: Vaishnavi mansfield Type: BLOOD SPECIMENOrdering Facility: [facility] Address: [address] [place] [address] Performed By: #### 2 4321-2, 01006-2, 2777-1 ####[facility] LAB[facility]ATORYCLIA [id number] [place] [address] [place] Phosphate SerPl-mCncon 12-27 Phosphate [Mass/Vol] 3.9 mg/dL Normal 2.7-4.8 [facility] Comment on above: Order Comment: Vaishnavi mansfield Type: BLOOD SPECIMENOrdering Facility: [facility] Address: [address] [place] [address] [place] [id number] Performed By: #### 2 4321-2, 35897-6, 2777-1 ####[facility] LABORATORYCLIA [id number] [place] [id number] [place] US DVT LOWER BILon US DVT LOWER SHERRY * * *Final Report* * * DATE OF EXAM: Dec 27 2024 11:49AM [place] 1005 - US DVT LOWER SHERRY / PROCEDURE REASON: Leg deep vein thrombosis (DVT), no change * * * * Physician Interpretation * * * * EXAMINATION: RIGHT AND LEFT LOWER EXTREMITY DEEP VENOUS ULTRASOUND WITH DOPPLER IMAGING CLINICAL HISTORY: Leg swelling TECHNIQUE: Grayscale with compression maneuvers, color Doppler and spectral Doppler imaging of the right and left proximal deep veins was performed. Grayscale with compression maneuvers of the right and left peroneal and posterior tibial veins was performed. The right and left great and small saphenous veins were evaluated at their insertion to the deep system. Images were obtained and stored in a permanent archive. MQ: USLEB_1 COMPARISON: None RESULT: RIGHT LOWER EXTREMITY PROXIMAL DEEP VEINS Distal External Iliac, Common Femoral and Proximal Profunda Veins: Compression: Normal Doppler: Normal, spontaneous respirophasic flow. Normal response to augmentation. Femoral vein: Compression: Normal Doppler: Normal, spontaneous respirophasic flow. Normal response to augmentation. Popliteal vein: Compression: Normal Doppler: Normal, spontaneous respirophasic flow. Normal response to augmentation. CALF DEEP VEINS Peroneal veins: Normal compression. Posterior tibial veins: Normal compression. Gastrocnemius and Soleal veins: Not imaged. SUPERFICIAL VEINS Great saphenous: Patent and compressible at insertion into common femoral vein; not otherwise assessed. Small Saphenous: Patent and compressible in the proximal calf, not otherwise assessed. LEFT LOWER EXTREMITY PROXIMAL DEEP VEINS Distal External Iliac, Common Femoral and Proximal Profunda Veins: Compression: Normal Doppler: Normal, spontaneous respirophasic flow. Normal response to augmentation. Femoral vein: Compression: Normal Doppler: Normal, spontaneous respirophasic flow. Normal response to augmentation. Popliteal vein: Compression: Normal Doppler: Normal, spontaneous respirophasic flow. Normal response to augmentation. CALF DEEP VEINS Peroneal veins: Normal compression. Posterior tibial veins: Normal compression. Gastrocnemius and Soleal veins: Not imaged. SUPERFICIAL VEINS Great saphenous: Patent and compressible at insertion into common femoral vein; not otherwise assessed. Small Saphenous: Patent and compressible in the proximal calf, not otherwise assessed. IMPRESSION: Negative study for proximal DVT in the left and right lower extremities. Negative study for calf DVT in the left and right lower extremities. Negative study for superficial thrombophlebitis in the imaged segments of the left and right lower extremities. Hypoid Gear Tester: PSCB Transcribe Date/Time: Dec 27 2024 11:54A Dictated by : ENRIQUE ANDRADE MD This examination was interpreted and the report reviewed and electronically signed by: ENRIQUE ANDRADE MD on Dec 27 2024 11:55AM EST [id number] CN Normal [facility] ALLIED HEALTHon 12-26-2024 ALLIED HEALTH HNO ID: [id number] Author: MARIA C SAL MRI Tech Service: ? Author Type: Technologist Type: Allied Health Filed: 12/26/2024 20:25 Note Text: Radiology Service Progress Note PATIENT NAME: Sung Yañez DATE OF SERVICE: December 26, 2024 TIME: 8:25 PM PATIENT IDENTITY VERIFICATION COMPLETED USING TWO (2) IDENTIFIERS: Name and Date of confirmed by patient verbally and Name and Date of confirmed by identification band. FALL SCREENING: Has the patient had 2 falls in the last year or 1 fall with injury or currently using an Ambulatory Assistive Device (Walker, Cane, Wheelchair, Crutches, etc.)? Inpatient: Screened on floor PATIENT GENDER DATA: Assigned male at PATIENT RELEVANT IMPLANT DATA REVIEWED: Yes PATIENT PRESENTS WITH AN IMPLANTABLE OR ATTACHED SURG PHYSICIAN ASST: No RADIOLOGY DEPARTMENT: MR; Exam(s) Completed: Head: Routine Brain. Aromatherapy Administered: No PERIPHERAL IV DATA: Inpatient: see LDA documentation SIGNED BY: BRANDY Inman December 26, 2024 8:25 PM Normal [facility] Basic metabolic 2000 panelon 12-26-2024 Anion gap [Moles/Vol] 10 mmol/L Normal 8-15 [facility] Comment on above: Order Comment: Speci men Type: BLOOD SPECIMENOrdering Facility: [facility] Address: [address] [place] [address] Performed By: #### 1 9123-9, 25480-5, 2776- ####[facility] LAB[facility]ATORYCLIA [id number] [place] [address] [place] Calcium [Mass/Vol] 8.7 mg/dL Normal 8.5-10.2 [facility] Comment on above: Order Comment: Speci men Type: BLOOD SPECIMENOrdering Facility: [facility] Address: [address] [place] [address] Performed By: #### 1 9123-9, 91884-9, 2776- ####[facility]ATORYCLIA [id number] [place] [address] [place] Chloride [Moles/Vol] 98 mmol/L Normal 98-107 [facility] Comment on above: Order Comment: Speci men Type: BLOOD SPECIMENOrdering Facility: [facility] Address: [address] [place] [address] Performed By: #### 1 91239, 28669-4, 2776-06 ####[facility]ATORYCLIA [id number] [place] [address] [place] CO2 [Moles/Vol] 23 mmol/L Normal 22-30 [facility] Comment on above: Order Comment: Speci men Type: BLOOD SPECIMENOrdering Facility: [facility] Address: [address] [place] [address] Performed By: #### 1 9123-9, 29613-3, 2776-06 ####[facility]ATORYCLIA [id number] [address] [place] Creatinine [Mass/Vol] 0.70 mg/dL Low 0.73-1.22 [facility] Comment on above: Order Comment: Speci men Type: BLOOD SPECIMENOrdering Facility: [facility] Address: [address] [place] [address] Performed By: #### 1 9123-9, 89909-1, 2776- ####[facility]ATORYCLIA [id number] [place] [address] [place] Creatinine and Glomerular filtration rate.predicted panel (S/P/Bld) 92 mL/min/1.73m??? Normal >=60 [facility] Comment on above: Order Comment: Vaishnavi mansfield Type: BLOOD SPECIMENOrdering Facility: [facility] Address: [address] [place] [address] Result Comment: Rhea mated Glomerular Filtration Rate (eGFR) is calculated using the 2020 CKD-EPI creatinine equation. This equation utilizes serum creatinine, sex, and age as parameters. The creatinine assay has traceable calibration to isotope dilution-mass spectrometry. Refer to KDIGO guidelines for clinical interpretation. In patients with unstable renal function, e.g. those with acute kidney injury, the eGFR may not accurately reflect actual GFR. Performed By: #### 1 9123-9, 16687-8, 277- ####[facility]ATORYCLIA [id number] [place] [address] [place] Glucose [Mass/Vol] 95 mg/dL Normal 74-99 [facility] Comment on above: Order Comment: Vaishnavi mansfield Type: BLOOD SPECIMENOrdering Facility: [facility] Address: [address] [place] [address] Result Comment: The [place] Diabetes Association (ADA) provides guidance for cutoff values for fasting glucose and random glucose. The ADA defines fasting as no caloric intake for at least 8 hours. Fasting plasma glucose results between 100 to 125 mg/dL indicate increased risk for diabetes (prediabetes). Fasting plasma glucose results greater than or equal to 126 mg/dL meet the criteria for diagnosis of diabetes. In the absence of unequivocal hyperglycemia, results should be confirmed by repeat testing. In a patient with classic symptoms of hyperglycemia or hyperglycemic crisis, random plasma glucose results greater than or equal to 200 mg/dL meet the criteria for diagnosis of diabetes. Reference: Standards of Medical Care in Diabetes 2016, [place] [employer] Association. Diabetes Care. 2016.39(Suppl 1). Performed By: #### 1 9123-9, 85994-2, 277- ####[facility]ATORYCLIA [id number] [place] [address] [place] Potassium [Moles/Vol] 4.3 mmol/L Normal 3.7-5.1 [facility] Comment on above: Order Comment: Speci men Type: BLOOD SPECIMENOrdering Facility: [facility] Address: [address] [place] [address] Performed By: #### 1 9123-9, 92274-2, 277- ####[facility]ATORYCLIA [id number] [address] [place] Sodium [Moles/Vol] 131 mmol/L Low 136-144 [facility] Comment on above: Order Comment: Speci men Type: BLOOD SPECIMENOrdering Facility: [facility] Address: [address] [place] [address] Performed By: #### 1 9123-9, 62973-6, 27712-24 ####[facility]ATORYCLIA [id number] [address] STATES OF [facility] Urea nitrogen [Mass/Vol] 11 mg/dL Normal 9-24 [facility] Comment on above: Order Comment: Speci men Type: BLOOD SPECIMENOrdering Facility: [facility] Address: [address] [place] [address] Performed By: #### 1 9123-9, 07725-1, 27712-24 ####[facility]ATORYCLIA [id number] [address] STATES OF [facility] CBC panel Auto (Bld)on 12-26 Erythrocyte distribution width (RBC) [Ratio] 13.4 % Normal 11.5-15.0 [facility] Comment on above: Order Comment: Speci men Type: BLOOD SPECIMENOrdering Facility: [facility] Address: [address] [place] [address] Performed By: #### 5 8410-2 ####[facility]ATORYCLIA [id number] [address] Hematocrit (Bld) [Volume fraction] 41.9 % Normal 39.0-51.0 [facility] Comment on above: Order Comment: Speci men Type: BLOOD SPECIMENOrdering Facility: [facility] Address: [address] [place] [address] Performed By: #### 5 8410-2 ####[facility]ATORYCLIA [id number] [address] Hemoglobin (Bld) [Mass/Vol] 13.9 g/dL Normal 13.0-17.0 [facility] Comment on above: Order Comment: Speci men Type: BLOOD SPECIMENOrdering Facility: [facility] Address: [address] [place] [address] Performed By: #### 5 8410-2 ####[facility]ATORYCLIA [id number] [address] MCH (RBC) [Entitic mass] 30.4 pg Normal 26.0-34.0 [facility] Comment on above: Order Comment: Speci men Type: BLOOD SPECIMENOrdering Facility: [facility] Address: [address] [place] [address] Performed By: #### 5 8410-2 ####[facility]ORYCLIA [id number] [address] MCHC (RBC) [Mass/Vol] 33.2 g/dL Normal 30.5-36.0 [facility] Comment on above: Order Comment: Speci men Type: BLOOD SPECIMENOrdering Facility: [facility] Address: [address] [place] [address] Performed By: #### 5 8410-2 ####[facility]ORYCLIA [id number] [address] MCV (RBC) [Entitic vol] 91.7 fL Normal 80.0-100.0 [facility] Comment on above: Order Comment: Speci men Type: BLOOD SPECIMENOrdering Facility: [facility] Address: [address] [place] [address] Performed By: #### 5 8410-2 ####[facility]ORYCLIA [id number] [address] Nucleated RBC (Bld) [#/Vol] 10*3/uL Normal <0.01 [facility] Comment on above: Order Comment: Speci men Type: BLOOD SPECIMENOrdering Facility: [facility] Address: [address] [place] [address] Performed By: #### 5 8410-2 ####[facility]ORYCLIA [id number] [address] [place] Platelet mean volume (Bld) [Entitic vol] 11.2 fL Normal 9.0-12.7 [facility] Comment on above: Order Comment: Speci men Type: BLOOD SPECIMENOrdering Facility: [facility] Address: [address] [place] [address] Performed By: #### 5 8410-2 ####[facility]ATORYCLIA [id number] [address] [place] Platelets (Bld) [#/Vol] 194 10*3/uL Normal 150-400 [facility] Comment on above: Order Comment: Speci men Type: BLOOD SPECIMENOrdering Facility: [facility] Address: [address] [place] [address] Performed By: #### 5 8410-2 ####[facility]ATORYCLIA [id number] [place] [address] [place] RBC (Bld) [#/Vol] 4.57 10*6/uL Normal 4.20-6.00 [facility] Comment on above: Order Comment: Speci men Type: BLOOD SPECIMENOrdering Facility: [facility] Address: [address] [place] [address] Performed By: #### 5 8410-2 ####[facility]ORYCLIA [id number] [address] [place] WBC (Bld) [#/Vol] 6.33 10*3/uL Normal 3.70-11.00 [facility] Comment on above: Order Comment: Speci men Type: BLOOD SPECIMENOrdering Facility: [facility] Address: [address] [place] [address] Performed By: #### 5 8410-2 ####[facility]ATORYCLIA [id number] [place] [address] [place] CNCOon 12-26-2024 CNCO Letter Text Normal [facility] CT BRAIN WO IVCONon 12-27-19 CT BRAIN WO IVCON * * *Final Report* * * DATE OF EXAM: Dec 26 2024 5:39AM [facility] CT BRAIN WO IVCON / PROCEDURE REASON: Subdural hematoma * * * * Physician Interpretation * * * * EXAMINATION: CT BRAIN WO IVCON CLINICAL HISTORY: Subdural hemorrhage, follow-up exam TECHNIQUE: Serial axial images without IV contrast were obtained from the vertex to the foramen magnum. MQ: CTBWO_3 CT Radiation dose: Integrated Dose-Length Product (DLP) for this visit = 837 mGy*cm CT Dose Reduction Employed: Iterative recon COMPARISON: 12/25/2024 CT RESULT: Localizer images: Post-operative change: None. Acute change: No evidence of an acute infarct in a large vessel distribution Hemorrhage: Slight interval decrease in the volume/size of the right parasagittal subdural hemorrhage now measuring 1.9cm on coronal image 31. Slight interval decrease in width of the right tentorial subdural hemorrhage component now measures 6 mm on coronal images 32. No significant change in the morphology and volume of the right parasagittal subdural hemorrhage with extension along the right tentorial leaflet. No change in associated mass effect medial right parietal and occipital lobes. No significant change in the density volume or morphology small volume right cerebral convexity subdural hematoma which measures 8 mm maximum thickness coronal image 22. Small volume subdural hemorrhage and lateral left posterior fossa axial image 10 No intraventricular hemorrhagic component Mass Lesion / Mass Effect: There is no evidence of an intracranial mass. No midline shift or signs of herniation Chronic change: Mild chronic supratentorial microvascular ischemic changes Parenchyma: Mild parenchymal volume loss Ventricles: Unchanged morphology ventricular system with mass effect and deformity right lateral ventricle. Paranasal sinuses and skull base: The visualized paranasal sinuses are grossly clear. The skull base and imaged soft tissues are unremarkable. IMPRESSION: Compared to 12/25/2024 CT, slight interval decrease in the size of the right parasagittal/right tentorial subdural hemorrhage component. No significant change in the density volume or morphology small volume right cerebral convexity subdural hematoma which measures 8 mm maximum thickness coronal image 22. Small volume subdural hemorrhage and lateral left posterior fossa axial image [address] evidence of developing obstructive hydrocephalus. No change in morphology ventricular system with asymmetric compression on the right lateral ventricle Hypoid Gear Tester: [facility] Transcribe Date/Time: Dec 26 2024 7:40A Dictated by : VIKAS ADAM MD This examination was interpreted and the report reviewed and electronically signed by: VIKAS ADAM MD on Dec 26 2024 7:48AM EST [id number] Normal [facility] Calcium.ionized [Moles/Vol]o n 12-26-2024 Calcium.ionized (BldV) [Mass/Vol] 1.12 mmol/L Normal 1.08-1.30 [facility] Comment on above: Order Comment: Speci men Type: BLOOD SPECIMENOrdering Facility: [facility] Address: [address] [place] [address] Performed By: #### 1 995-0 ####[facility]ATORYCLIA [id number] [address] Calcium.ionized adjusted to pH 7.4 (Bld) [Moles/Vol] 1.11 mmol/L Normal 1.08-1.30 [facility] Comment on above: Order Comment: Speci men Type: BLOOD SPECIMENOrdering Facility: [facility] Address: [address] [place] [address] Performed By: #### 1 995-0 ####[facility] LAB[facility]ATORYCLIA [id number] [address] STATES OF [facility] MRI BRAIN WO IVCONon 025 MRI BRAIN WO IVCON * * *Final Report* * * DATE OF EXAM: Dec 26 2024 8:40PM [facility] 0294 - MRI BRAIN WO IVCON / PROCEDURE REASON: Stroke, follow up * * * * Physician Interpretation * * * * EXAMINATION: MRI BRAIN WO IVCON CLINICAL HISTORY: Stroke follow-up TECHNIQUE: Routine noncontrast MRI protocol including diffusion images. MQ: MRBWO_2 COMPARISON: CT performed 12/26/2024 and MRI performed 12/23/2024 RESULT: Acute Change: No definite acute infarct. There is some restricted diffusion along the medial right frontal and parietal lobe, interdigitating along the sulci, which is likely related to adjacent subarachnoid blood products, with some increased FLAIR signal in the adjacent cortex. Hemorrhage: Again noted are multiple extra-axial hemorrhages, including the largest along the right falx measuring up to 2.0 cm in greatest thickness, similar to the study performed earlier today, with additional smaller collections along the left falx, overlying the right convexity, along the right greater than left tentorium, as well as small bilateral collections in the posterior fossa. All of these appear stable. Accompanying subarachnoid hemorrhage along the medial and overlying both convexities is similar to previous. Mass Lesion/ Mass Effect: There continues to be mass effect on the medial right frontal and parietal lobe. There is slight right to left shift of midline which is unchanged. Chronic Change: Scattered patchy and confluent areas of increased T2 and FLAIR signal are present in the supratentorial white matter which is nonspecific but likely represents chronic microvascular ischemia. Parenchyma: No significant volume loss for age. The brain parenchyma is otherwise within normal limits of signal intensity and morphology. Ventricles: Mass effect on the right lateral ventricle, similar to previous. No change in ventricular size. Skull Base: Hypothalamic and pituitary region are grossly normal. Craniocervical junction is normal. No significant marrow replacement process. Vasculature: Major intracranial arterial structures, and dural venous sinuses show typical flow void, suggesting patency by spin echo criteria. Other: The visualized paranasal sinuses and mastoid air cells are clear. The orbits and extracranial soft tissues are unremarkable. IMPRESSION: 1. No definite acute infarct. 2. There is some increased FLAIR signal in the medial right frontal and parietal cortex, adjacent to the parafalcine subdural and subarachnoid hemorrhage, suspicious for cortical edema. Some of these areas also have some restricted diffusion which is most likely related to artifact from the adjacent blood product, but small areas of medial cortical infarct cannot be entirely excluded. Local cortical irritation from mass effect and/or adjacent blood products or recent seizure could also be considered as etiologies. 3. Stable appearance of the multiple extra-axial hemorrhages along the medial right greater than left falx, overlying the right convexity as well as in the posterior fossa and along the tentorium. Local mass effect, similar to previous COMMUNICATION: Communicated with Lety Garber CNP on 12/26/2024 9:16 PM via verbal communication. Hypoid Gear Tester: [facility] Transcribe Date/Time: Dec 26 2024 8:46P Dictated by : NAPOLEON MATIAS MD This examination was interpreted and the report reviewed and electronically signed by: NAPOLEON MATIAS MD on Dec 26 2024 9:18PM EST [id number] CN Normal [facility] Magnesium SerPl-mCncon 12-26 Magnesium [Mass/Vol] 1.7 mg/dL Normal 1.7-2.3 [facility] Comment on above: Order Comment: Speci men Type: BLOOD SPECIMENOrdering Facility: [facility] Address: [address] [place] [address] Performed By: #### 1 9123-9, 10779-8, 2777-1 ####[facility] LABORATORYCLIA [id number] [address] [facility] Phosphate [Mass/Vol] 2.9 mg/dL Normal 2.7-4.8 [facility] Comment on above: Order Comment: Speci men Type: BLOOD SPECIMENOrdering Facility: [facility] Address: [address] [place] [address] Performed By: #### 1 9123-9, 28885-9, 2777-1 ####[facility] LABORATORYCLIA [id number] [address] OF [facility] THERAPY NTon 12-26-2024 THERAPY NT HNO ID: [id number] Author: BENJAMIN RACHEL OTR/L Service: Occupational Therapy Author Type: Occupational Therapist Type: Therapy (PT/OT/Speech/Resp) Filed: 12/26/2024 14:25 Note Text: Occupational Therapy Evaluation Summary SERVICE DATE: 12/26/2024 SERVICE TIME: 1104 to 1133 ROOM: [place] [address] OT 6 Clicks Score: 12 DISCHARGE RECOMMENDATIONS Acute Rehab Recommended Discharge Disposition Comments: Pt currently functioning well below functional baseline at this time and reuqires increased assist with all ADl sand functional transfers. REcommending [facility] for continued skilled therapy services. Anticipate that pt will tolerate 3 hours of therapy a day. Recommended Discharge Disposition Due to: Patient requires daily (5x/week) skilled therapy at next level of care., Patient requires active, intensive rehabilitation by multiple therapy disciplines. Anticipate the patient will tolerate 3 hours of therapy per day., ADL impairment, Functional status decline, Requires multiple therapy disciplines, Cognitive deficits new/worsened ASSESSMENT Response to Therapy Interventions: Good Participation in Activities, Low Activity Tolerance, Pain, Requires Additional Time to Complete Activities Mr. Yañez was seen today for an Occupational Therapy evaluation in the ICU. Upon entering the room, patient avoiding left side of body With head turned towards right side. Facilitated education to patient and family on approaching on left side of body. Completed active assist range of motion to left side at shoulder, elbow, hand, and wrist with functional activities. Patient demonstrates poor sitting and standing balance at this time with ADL function. Currently functioning well below baseline and requiring significant assist with ADLs and functional transfers. Recommending acute rehab at discharge for continued skilled therapy services to maximize independence. Anticipate that he will tolerate 3 hours of skilled therapy services a day. Provided handout to patient and family on brain breaks, functional coordination activities, and active range of motion/active assist range of motion to the left upper extremity to maximize functional use. Reviewed all activities and handouts with patient and family. PRECAUTIONS Fall Risk, Bed/Chair Alarm CURRENT HOSPITAL COURSE presented to [facility] from OSH s/p fall with posterior head trauma and LLE weakness. CTH revealed acute right parafalcine SDH. Pt treated with Kcentra for reversal of xarelto at OSH. NSGY d/w pt and family sx evac of SDH Relevant Past Medical History: PMHx significant for HTN, afib on Xarelto, BPH, DDD, and melanoma HOME LIVING Patient Lives With: Spouse Assistance Available: 24-Hour Entry To Home: Stairs Number Of Stairs Into Home: 1 Number Of Stairs To Bed/Bath: 0 PRIOR FUNCTIONAL LEVEL Within Functional Limits Normally fully independent Baseline Cognition: Oriented to self, Oriented to place, Oriented to time, Oriented to situation SUBJECTIVE Pt pleasant and agreeable to OT session COGNITION Orientation Deficits: Not oriented to Time Responsiveness: Awake Follows Commands: 1-step Commands, Cueing Needed Cueing to Follow Commands: Minimum Executive Function Deficits: Sequencing, Safety Awareness, Problem Solving, Insight to Deficits Confusion Assessment Method (CAM - ICU Score): Negative (12/26/24) THERAPY DIAGNOSIS Decreased activities of daily living (ADL), Reduced mobility-other, Muscle Weakness (generalized), Unsteadiness on feet, General symptoms and signs-other, Lack of coordination-other, Signs and Symptoms Involving Cognitive Functions and Awareness TREATMENT INTERVENTIONS Evaluation, Self Usp Management (74385) Timed Code Treatment (minutes): 14 Skilled Treatment Time (minutes): 29 $ Evaluation - Moderate (06060) Billed Units: 1 unit Self Usp Management (34666) Treatment Minutes: 14 $ Self Usp Management (81148) Billed Units: 1 unit TRAINING AND EDUCATION PROVIDED Activity Adaptation/Compensat ory Strategies, Bed Mobility, Benefits of In-Hospital Mobility, Command Following, Cognitive Skills, Expected Functional Level, Feeding Tasks, Grooming Tasks, Lower Extremity Dressing, Positioning, Safety/Judgment, Role of Occupational Therapy, Sitting Balance to Improve [place] with ADLs/Self-Care, Standing Balance to Improve [place] with ADLs/Self-Care, Transfer - Sit to Stand, Upper Extremity Dressing THERAPEUTIC SKILLS USED Activity Dosing, Assessment of Tolerance Including Vitals Response to Activity, Cues for Sequencing/Proper Technique for Activity, Cuing Tactile, Cuing Verbal, Physical Assist, Therapeutic Use of Self FUNCTIONAL STATUS Activities of Daily Living Assist Level Additional Information Feeding Moderate Assistance Encourage patient and family for using left upper extremity for feeding task. OT adapted utensils and feeding cups for ease with l (more content not included)... Normal [facility] THERAPY NT HNO ID: [id number] Author: JAMEL SANDERS, PT Service: Physical Therapy Author Type: Physical Therapist Type: Therapy (PT/OT/Speech/Resp) Filed: 12/26/2024 12:10 Note Text: Physical Therapy Evaluation Summary SERVICE DATE: 12/26/2024 SERVICE TIME: 1040 to 1103 ROOM: [id number] PT 6 Clicks Score: 9 DISCHARGE RECOMMENDATIONS Acute Rehab Recommended Discharge Disposition Due to: Patient requires active, intensive rehabilitation by multiple therapy disciplines. Anticipate the patient will tolerate 3 hours of therapy per day., Functional status decline, Coordination deficits, Balance deficits, Weakness less than 3/5 in lower extremity ASSESSMENT Response to Therapy Interventions: Good Participation in Activities Patient with significant impairments and is well below his baseline of being fully independent. Recommend acute rehab at d/c to maximize and expidite return of function. PRECAUTIONS Bed/Chair Alarm, Fall Risk CURRENT HOSPITAL COURSE presented to [facility] from OSH s/p fall with posterior head trauma and LLE weakness. CTH revealed acute right parafalcine SDH. Pt treated with Kcentra for reversal of xarelto at OSH. NSGY d/w pt and family sx evac of SDH Relevant Past Medical History: PMHx significant for HTN, afib on Xarelto, BPH, DDD, and melanoma HOME LIVING Patient Lives With: Spouse Assistance Available: 24-Hour Entry To Home: Stairs Number Of Stairs Into Home: 1 Number Of Stairs To Bed/Bath: 0 PRIOR FUNCTIONAL LEVEL Within Functional Limits Normally fully independent SUBJECTIVE pleasant and willing to participate THERAPY DIAGNOSIS Reduced mobility-other, Muscle Weakness (generalized), Unsteadiness on feet, Abnormalities of gait and mobility-other, General symptoms and signs-other TREATMENT INTERVENTIONS Evaluation, Neuromuscular Reeducation (02655) Timed Code Treatment (minutes): 8 Skilled Treatment Time (minutes): 23 $ Evaluation-High (21736) Billed Units: 1 unit Neuromuscular Reeducation (05559) Treatment Minutes: 8 $ Neuromuscular Reeducation (09195) Billed Units: 1 unit Sitting balance with cues on posture correction verbal and tactile. Patient able to attempt to follow commands. Working on proprioception through L UE in sitting. Practiced standing x2. [place] for attaining erect posture. TRAINING AND EDUCATION PROVIDED Advanced Balance Activities, Benefits of In-Hospital Mobility, Discharge Planning, Disease Specific Education, Role of Physical Therapy, Positioning, Sitting Balance THERAPEUTIC SKILLS USED Activity Dosing, Assessment of Tolerance Including Vitals Response to Activity, Cues for Sequencing/Proper Technique for Activity, Cuing Verbal, Facilitation of Joint Range of Motion, Management of Critical Lines, Tubes and/or Drains, Movement Facilitation, Muscle Activation Facilitation, Physical Assist, Postural Alignment Correction FUNCTIONAL STATUS Bed Mobility Rolling: Moderate Assistance, Maximal Assistance Supine To Sit: Maximal Assistance, Additional Information x2 Sit to Supine: Additional Information x2 Scooting: Maximal Assistance Transfers Sit To Stand: Additional Information, Maximal Assistance x2, needed L knee blocked and L UE suported Pt in needs cues to stand errect but returns to flexed/slouched posture Stand To Sit: Maximal Assistance, Additional Information x2 Bed to Chair Gait Stairs Range of Motion: ROM Limitation Comments ROM Limitation Comments: L LE no active motion elicited. L UE pt able to move all joints but slow and limited motion; pt can only rotate head L ~15degrees Strength: Strength Limitation Comments Strength Limitation Comments: L LE 0/5; L UE 2/5 grossly shoulder, elbow, wrist and fingers. Coordination Deficits: (L Side poor to no motor control) GOALS Able to Perform HEP with: Minimal Assistance Rolling with: Moderate Assistance Transfer Supine to/from Sit with: Moderate Assistance Transfer Sit to/from Stand with: Moderate Assistance Goal: able to sit EOB and maintain balanced posture aith [facility] ACUTE CARE TREATMENT PLAN PT Frequency: 3 Times Per Week (3-5) Treatment Interventions: Education, Strengthening, Functional Mobility Training, Balance Training, Neuromuscular Re-education SIGNATURE: Jamel Sanders, PT PATIENT NAME: Sung Yañez DATE: December 26, 2024 TIME: 12:05 PM Normal [facility] Basic metabolic 2000 panelon 12-25-2024 Anion gap [Moles/Vol] 9 mmol/L Normal 8-15 [facility] Comment on above: Order Comment: Speci men Type: BLOOD SPECIMENOrdering Facility: [facility] Address: [address] [place] [address] Performed By: #### 2 4321-2 ####[facility]ORATORYCLIA [id number] [place] [address] [place] Calcium [Mass/Vol] 8.2 mg/dL Low 8.5-10.2 [facility] Comment on above: Order Comment: Speci men Type: BLOOD SPECIMENOrdering Facility: [facility] Address: [address] [place] [address] Performed By: #### 2 4321-2 ####[facility]ATORYCLIA [id number] [place] [address] [place] Chloride [Moles/Vol] 100 mmol/L Normal 98-107 [facility] Comment on above: Order Comment: Speci men Type: BLOOD SPECIMENOrdering Facility: [facility] Address: [address] [place] [address] Performed By: #### 2 4321-2 ####[facility]ATORYCLIA [id number] [place] [address] [place] CO2 [Moles/Vol] 21 mmol/L Low 22-30 [facility] Comment on above: Order Comment: Specrohit donal Type: BLOOD SPECIMENOrdering Facility: [facility] Address: [address] [place] [address] Performed By: #### 2 4321-2 ####[facility] [id number] [address] STATES OF [facility] Creatinine [Mass/Vol] 0.81 mg/dL Normal 0.73-1.22 [facility] Comment on above: Order Comment: Speci men Type: BLOOD SPECIMENOrdering Facility: [facility] Address: [address] [place] [address] Performed By: #### 2 4321-2 ####[facility]CLIA [id number] [address] Creatinine and Glomerular filtration rate.predicted panel (S/P/Bld) 88 mL/min/1.73m??? Normal >=60 [facility] Comment on above: Order Comment: Vaishnavi men Type: BLOOD SPECIMENOrdering Facility: [facility] Address: [address] [place] [address] Result Comment: Rhea mated Glomerular Filtration Rate (eGFR) is calculated using the 2020 CKD-EPI creatinine equation. This equation utilizes serum creatinine, sex, and age as parameters. The creatinine assay has traceable calibration to isotope dilution-mass spectrometry. Refer to KDIGO guidelines for clinical interpretation. In patients with unstable renal function, e.g. those with acute kidney injury, the eGFR may not accurately reflect actual GFR. Performed By: #### 2 4321-2 ####[facility]ORYCLIA [id number] [address] [place] Glucose [Mass/Vol] 88 mg/dL Normal 74-99 [facility] Comment on above: Order Comment: Vaishnavi [place] Type: BLOOD SPECIMENOrdering Facility: [facility] Address: [address] [place] [address] Result Comment: The [place] Diabetes Association (ADA) provides guidance for cutoff values for fasting glucose and random glucose. The ADA defines fasting as no caloric intake for at least 8 hours. Fasting plasma glucose results between 100 to 125 mg/dL indicate increased risk for diabetes (prediabetes). Fasting plasma glucose results greater than or equal to 126 mg/dL meet the criteria for diagnosis of diabetes. In the absence of unequivocal hyperglycemia, results should be confirmed by repeat testing. In a patient with classic symptoms of hyperglycemia or hyperglycemic crisis, random plasma glucose results greater than or equal to 200 mg/dL meet the criteria for diagnosis of diabetes. Reference: Standards of Medical Care in Diabetes 2016, [place] Diabetes Association. Diabetes Care. 2016.39(Suppl 1). Performed By: #### 2 4321-2 ####[facility]ORYCLIA [id number] [address] OF [facility] Potassium [Moles/Vol] 4.4 mmol/L Normal 3.7-5.1 [facility] Comment on above: Order Comment: Speci men Type: BLOOD SPECIMENOrdering Facility: [facility] Address: [address] [place] [address] Performed By: #### 2 4321-2 ####[facility] [id number] [address] Sodium [Moles/Vol] 130 mmol/L Low 136-144 [facility] Comment on above: Order Comment: Speci men Type: BLOOD SPECIMENOrdering Facility: [facility] Address: [address] [place] [address] Performed By: #### 2 4321-2 ####[facility]ORYCLIA [id number] [address] Urea nitrogen [Mass/Vol] 13 mg/dL Normal 9-24 [facility] Comment on above: Order Comment: Speci men Type: BLOOD SPECIMENOrdering Facility: [facility] Address: [address] [place] [address] Performed By: #### 2 4321-2 ####[facility]ORYCLIA [id number] [address] CBC panel Auto (Bld)on 12-25 Erythrocyte distribution width (RBC) [Ratio] 13.5 % Normal 11.5-15.0 [facility] Comment on above: Order Comment: Speci men Type: BLOOD SPECIMENOrdering Facility: [facility] Address: [address] [place] [address] Performed By: #### 5 8410-2 ####[facility]ORYCLIA [id number] [address] Hematocrit (Bld) [Volume fraction] 41.1 % Normal 39.0-51.0 [facility] Comment on above: Order Comment: Speci men Type: BLOOD SPECIMENOrdering Facility: [facility] Address: [address] [place] [address] Performed By: #### 5 8410-2 ####[facility]ORYCLIA [id number] [address] OF [facility] Hemoglobin (Bld) [Mass/Vol] 13.1 g/dL Normal 13.0-17.0 [facility] Comment on above: Order Comment: Speci men Type: BLOOD SPECIMENOrdering Facility: [facility] Address: [address] [place] [address] Performed By: #### 5 8410-2 ####[facility]ORYCLIA [id number] [address] MCH (RBC) [Entitic mass] 30.3 pg Normal 26.0-34.0 [facility] Comment on above: Order Comment: Speci men Type: BLOOD SPECIMENOrdering Facility: [facility] Address: [address] [place] [address] Performed By: #### 5 8410-2 ####[facility]ORYCLIA [id number] [address] [place] MCHC (RBC) [Mass/Vol] 31.9 g/dL Normal 30.5-36.0 [facility] Comment on above: Order Comment: Speci men Type: BLOOD SPECIMENOrdering Facility: [facility] Address: [address] [place] [address] Performed By: #### 5 8410-2 ####[facility]ORYCLIA [id number] [address] MCV (RBC) [Entitic vol] 94.9 fL Normal 80.0-100.0 [facility] Comment on above: Order Comment: Speci men Type: BLOOD SPECIMENOrdering Facility: [facility] Address: [address] [place] [address] Performed By: #### 5 8410-2 ####[facility]ORYCLIA [id number] [address] [place] Nucleated RBC (Bld) [#/Vol] 10*3/uL Normal <0.01 [facility] Comment on above: Order Comment: Speci men Type: BLOOD SPECIMENOrdering Facility: [facility] Address: [address] [place] [address] Performed By: #### 5 8410-2 ####[facility]ORYCLIA [id number] [address] [place] Platelet mean volume (Bld) [Entitic vol] 11.7 fL Normal 9.0-12.7 [facility] Comment on above: Order Comment: Speci men Type: BLOOD SPECIMENOrdering Facility: [facility] Address: [address] [place] [address] Performed By: #### 5 8410-2 ####[facility]ORYCLIA [id number] [address] [place] Platelets (Bld) [#/Vol] 176 10*3/uL Normal 150-400 [facility] Comment on above: Order Comment: Speci men Type: BLOOD SPECIMENOrdering Facility: [facility] Address: [address] [place] [address] Performed By: #### 5 8410-2 ####[facility]ORYCLIA [id number] [address] [place] RBC (Bld) [#/Vol] 4.33 10*6/uL Normal 4.20-6.00 [facility] Comment on above: Order Comment: Speci men Type: BLOOD SPECIMENOrdering Facility: [facility] Address: [address] [place] [address] Performed By: #### 5 8410-2 ####[facility]ATORYCLIA [id number] [place] [id number] [place] [facility] WBC (Bld) [#/Vol] 5.81 10*3/uL Normal 3.70-11.00 [facility] Comment on above: Order Comment: Speci men Type: BLOOD SPECIMENOrdering Facility: [facility] Address: [address] [place] [address] Performed By: #### 5 8410-2 ####[facility]ORYCLIA [id number] [place] [id number] [facility] [place] CK SerPl-cCncon 12-25-2024 CK [Catalytic activity/Vol] 54 U/L Normal 51-298 [facility] Comment on above: Order Comment: Speci men Type: BLOOD SPECIMENOrdering Facility: [facility] Address: [address] [place] [address] Performed By: #### 3 016-3, 2157 ####[facility]ORYCLIA [id number] [address] [place] CONSULT PROGon 12-25-2024 CONSULT PROG HNO ID: [id number] Author: PIERRE STAHL APRN.TEXTILE ENGINEER Service: Neurosurgery Author Type: Nurse Practitioner Type: Consult Progress Note Filed: 12/25/2024 14:40 Note Text: Neurosurgery Progress Note SERVICE DATE: 12/25/2024 SUBJECTIVE: Patient alert and oriented during examination however in addition to weak LLE his VILMA is now weak on exam as well. OBJECTIVE: Vitals: Temp (24hrs), Av.6 ?C (97.9 ?F), Min:36.2 ?C (97.2 ?F), Max:36.9 ?C (98.4 ?F) BP 164/83 Pulse 74 Temp 36.9 ?C (98.4 ?F) (Oral) Resp 12 Ht 190.5 cm (6' 3) Wt 97.6 kg (215 lb 2.7 oz) SpO2 92% BMI 26.89 kg/m? O2 Therapy: Nasal Cannula IANDO: Date 12/24/24699 - 12/25/24 0659 12/25/24 07 - 12/26/24 0659 Shift 2279-1533 9881-9091 1940-6437 24 Hour Total 0111-9386 6393-5505 8295-9101 24 Hour Total INTAKE PO 120 300 420 PO 120 300 420 Irrigants 250 250 Irrigant/Flush Amount In mL (I/O) ([REMOVED] Indwelling Urinary Catheter 12/23/24 [facility] 12/24/24 1500) 250 250 Shift Total 120 550 670 OUTPUT Urine 325 450 200 975 Amount Voided Before Bladder Scan 100 100 Urine Incontinence/Not Saved 1 x 1 x Output ([REMOVED] Indwelling Urinary Catheter 12/23/24 [facility] 12/24/24 1500) 325 50 375 Output ( External Collection Device 12/24/24 1500 [facility]) 300 200 500 Shift Total 325 450 200 975 Weight (kg) 95 95 95 95 97.6 97.6 97.6 97.6 Medications: Current Facility-Administere d Medications Medication Dose Route Frequency lisinopril 20 mg tab(s) (ZESTRIL) 20 mg ORAL DAILY acetaminophen 975 mg tab(s) (TYLENOL) 975 mg ORAL QID metoprolol succinate ER 50 mg tab(s) (TOPROL XL) 50 mg ORAL DAILY ondansetron 4 mg tab(s) (ZOFRAN) 4 mg ORAL q 6 H PRN Or ondansetron (PF) 4 mg injection (ZOFRAN) 4 mg INTRAVENOUS q 6 H PRN oxyCODONE IR 2.5-5 mg tab(s) (ROXICODONE) 2.5-5 mg ORAL q 4 H PRN senna-docusate 8.6-50 mg 1 tablet (SENNA-S) 1 tablet ORAL BID levETIRAcetam 1,000 mg tab(s) (KEPPRA) 1,000 mg ORAL BID Labs: Recent Labs 12/25/24 0242 12/24/24 0235 12/23/24 1040 NA 130* 137 138 K 4.4 4.2 4.2 CHLOR 100 106 105 CO2 21* 23 19* BUN 13 12 12 CREAT 0.81 0.81 0.77 GLUC 88 91 110* ANION 9 8 14 CA 8.2* 8.5 8.5 MG -- 2.1 -- P -- 3.7 -- ALB -- -- 3.6* AST -- -- 18 ALT -- -- 10 ALKPHOS -- -- 88 TBILI -- -- 1.0 WBC 5.81 4.93 6.62 HB 13.1 12.5* 14.5 HCT 41.1 38.4* 45.4 PLT 176 188 203 INR -- -- 1.2 Imaging: IMPRESSION: Brain CT shows no significant interval change, including of the burden of the supra and infratentorial subdural fluid collections/hemorrha ge and associated mass effect. Other details above. Hypoid Gear Tester: PONCE Transcribe Date/Time: Dec 25 2024 6:24A Exam: GENERAL: No distress, Alert Neuro : A+O x3, PERRL, makes eye contact, speech clear, cranial nerves 2-12 grossly intact , Right Left Shoulder ABduction (C5/C6) 5/5 3/5 Elbow flexion (C5/C6) 5/5 3/5 Elbow extension (C7/C8) 5/5 3/5 Wrist extension (C6/C7) 5/5 3/5 Manager Of Construction (C8/T1) 5/5 4/5 Intrinsics (C8/T1) 5/5 4/5 Hip flexion (L2/3) 4/5 2/5 Knee extension (L3/4) 5/5 2/5 Knee flexion (L5/S1) 5/5 2/5 EHL (L5) 5/5 1/5 Dorsiflexion (L4) 5/5 1/5 Plantarflexion (S1/S2) 5/5 1/5 HEENT: normocephalic, atraumatic LUNGS: Unlabored breathing CARDIAC: Regular rate and rhythm as above ABDOMEN: Soft, non-tender, non-distended EXTREMITIES: HELMS, No deformities, No edema SKIN: Skin color, texture, turgor normal, No rashes or lesions ASSESSMENT AND PLAN: Active Hospital Problems Diagnosis Date Noted SDH (subdural hematoma) (HCC) 12/23/2024 Trauma 12/23/2024 Fall 12/23/2024 Current use of group home anticoagulation 12/23/2024 Scalp abrasion 12/23/2024 Neuropathy 12/23/2024 Left leg weakness 12/23/2024 Primary hypertension 12/23/2024 Chronic Chronic atrial fibrillation (HCC) 12/23/2024 Chronic Mr. Yañez is a 84 year old male with hx of afib on xarelto and HTN who presents from OSH after a fall. CT head indicated left SDH and falx SDH. -Neuro as above, Patient has increasing weakness -CT head completed and stable, will need 24 hour repeat -KCentra given at OSH- -Continue to hold AC/AP -Keppra 1000mg BID for 14 doses -Recommend continued ICU observation as patient has had decline in exam -HOB >30 -Hold DVT PPX chemo- may start 48hrs post stable scan -Plan for repeat CTH in am tomorrow -Patient previously wanted to hold on surgery, we will discuss this further with him on rounds. -discussed with Dr. Coppola ADDENDUM: discussed care with family and patient at bedside, the patient will continue to hold off of surgery as there is possibility his neuro worsening is due to seizure activity. Consult to NSICU placed for possible seizure management. Portions of text from this note were copied. All relevant information was reviewed and updated accordingly on 12/25/2024 SIGNATURE: J (more content not included)... Normal [facility] CONSULT PROG HNO ID: [id number] Author: KATI CHAUHAN MD Service: General Surgery Author Type: Physician Type: Consult Progress Note Filed: 12/25/2024 10:52 Note Text: INPATIENT SICU PROGRESS NOTE SERVICE DATE: 12/25/2024 SERVICE TIME: 8:58 AM Subjective Patient seen in the AM. NAOE. VSS. rCTH done today Am. Shows no change anticipate RNF today. Current Facility-Administere d Medications Medication Dose Route Frequency ondansetron 4 mg tab(s) (ZOFRAN) 4 mg ORAL q 6 H PRN Or ondansetron (PF) 4 mg injection (ZOFRAN) 4 mg INTRAVENOUS q 6 H PRN oxyCODONE IR 2.5-5 mg tab(s) (ROXICODONE) 2.5-5 mg ORAL q 4 H PRN senna-docusate 8.6-50 mg 1 tablet (SENNA-S) 1 tablet ORAL BID levETIRAcetam 1,000 mg tab(s) (KEPPRA) 1,000 mg ORAL BID lisinopril 20 mg tab(s) (ZESTRIL) 20 mg ORAL DAILY acetaminophen 975 mg tab(s) (TYLENOL) 975 mg ORAL QID metoprolol succinate ER 50 mg tab(s) (TOPROL XL) 50 mg ORAL DAILY Objective VITAL SIGNS BP 151/102 Pulse 73 Temp (Src) 98.1 (Oral) Resp 11 Ht 6' 3 (1.91m) Wt 209 lb 7 oz (95.0kg) SpO2 96% BMI 26.18 kg/(m2). O2 Therapy: Nasal Cannula, Liters (Numeric Only): 1 Temp (24hrs), Av.6 ?C (97.8 ?F), Min:36.2 ?C (97.2 ?F), Max:36.7 ?C (98.1 ?F) Date 12/24/24699 - 12/25/24 0659 12/25/24 07 - 12/26/24 0659 Shift 8305-7995 8357-5616 0145-6966 24 Hour Total 5613-8821 6106-9609 6187-2676 24 Hour Total INTAKE PO 120 300 420 PO 120 300 420 Irrigants 250 250 Irrigant/Flush Amount In mL (I/O) ([REMOVED] Indwelling Urinary Catheter 12/23/24 [facility] 12/24/24 1500) 250 250 Shift Total 120 550 670 OUTPUT Urine 325 450 200 975 Amount Voided Before Bladder Scan 100 100 Urine Incontinence/Not Saved 1 x 1 x Output ([REMOVED] Indwelling Urinary Catheter 12/23/24 [facility] 12/24/24 1500) 325 50 375 Output ( External Collection Device 12/24/24 1500 [facility]) 300 200 500 Shift Total 325 450 200 975 Weight (kg) 95 95 95 95 95 95 95 95 PHYSICAL EXAM: GENERAL: Alert. No distress. Resting comfortably. NEURO: AANDOx3. Weakness in dorsiflexion, plantarflexion, and weakness in hip flexion. Sensation grossly intact. HEENT: Normocephalic. Atraumatic. EOMI. LUNGS: Unlabored breathing. Equal excursion bilaterally. CARDIAC: Regular rate, on tele, Good perfusion throughout. ABDOMEN: Soft, non-tender, non-distended. No rebound or guarding. EXTREMITIES: HELMS. No deformities. SKIN: No obvious jaundice or pallor. DATA: Diagnostic tests reviewed for today's visit: No results for input(s): BODSITE, CTYPE, PH, PCO2, PO2, BE, HCO3, CO2CT, O2HB, COHB, MHGB, TEMP, PHTC, PCO2T, PO2T, O2AD in the last 72 hours. Recent Labs 12/25/24 0242 12/24/24 0235 12/23/24 1040 CREAT 0.81 0.81 0.77 BUN 13 12 12 NA 130* 137 138 K 4.4 4.2 4.2 CHLOR 100 106 105 CO2 21* 23 19* ANION 9 8 14 GLUC 88 91 110* CA 8.2* 8.5 8.5 P -- 3.7 -- MG -- 2.1 -- ALB -- -- 3.6* AST -- -- 18 ALT -- -- 10 ALKPHOS -- -- 88 TBILI -- -- 1.0 WBC 5.81 4.93 6.62 HB 13.1 12.5* 14.5 HCT 41.1 38.4* 45.4 PLT 176 188 203 Assessment AND Plan ACTIVE PROBLEM LIST Family History of Malignant Neoplasm of Gastrointestinal Tract Sdh (Subdural Hematoma) (Hcc) Trauma Fall Current Use of Mcfp Anticoagulation Scalp Abrasion Neuropathy Left Leg Weakness Primary Hypertension Chronic Atrial Fibrillation (Hcc) Assessment This is a 84 year old male s/p mechanical ground level fall on 12/20/2024. Presented to [place] ED 3 days later and was transferred to [facility] on 12/23/2024. Admitted to the SICU. Hospital course: 12/23: admit to SICU Neuro: SDH: - Neurosurgery consulted - Q1 neuro checks - rCTh #1 - slightly increased size, he will need further repeat CT's to ensure stability - rCTH #2 - stable - rCTH #3 stable - antiicpate RNF today. - MRI brain - irregular enhancement within collection extrav vs. Spot sign - NIL consulted no role for intervention. - Keppra 1000 mg BID x 14 doses end (12/29) - S/p KCentra given at outside ED for home Xarelto reversal - Hold home Xarelto at this time, Hold DVT prophylaxis - Will need PT/OT/SUMMER ANALYST recs - Will need to follow up with neurosurgery after hospital discharge - pain and nausea prn CV: HTN - retsrated lisinopril - metoprolol restarted - Tele - EKG as indcated Resp: - Sating well on O2 Therapy: Nasal Cannula GI: - DIET HEART HEALTHY - Bowel Regimen: senna - GI ppx: None Renal: - strict Is/Os - electrolyte replacement per unit protocol Creatinine Date Value Ref Range Status 12/25/2024 0.81 0.73 - 1.22 mg/dL Final 12/24/2024 0.81 0.73 - 1.22 mg/dL Final 12/23/2024 0.77 0.73 - 1.22 mg/dL Final Magnesium Date Value Ref Range Status 12/24/2024 2.1 1.7 - 2.3 mg/dL Final Potassium Date Value Ref Range Status 12/25/2024 4.4 3.7 - 5.1 mmol/L Final 12/24/2024 4.2 (more content not included)... [facility] CT BRAIN WO IVCONon 12-26-19 CT BRAIN WO IVCON * * *Final Report* * * DATE OF EXAM: Dec 25 2024 5:26AM [facility] - CT BRAIN WO IVCON / PROCEDURE REASON: Subdural hematoma * * * * Physician Interpretation * * * * EXAMINATION: CT BRAIN WO IVCON CLINICAL HISTORY: Subdural hematoma. TECHNIQUE: Routine CT of the brain without IV contrast. CT Dose-Length Product (DLP): 820 mGy*cm CT Dose Reduction Employed: Iterative recon; COMPARISON: 12/24/[address] RESULT: No significant interval change in the intracranial subdural fluid collections/bleeds. This is most notably in the right-sided supratentorial compartment, where there is large hyperdense parafalcine component measuring up to 2 cm thickness with mass effect (moderate-extensive mass upon the adjacent parasagittal cerebrum and about moderate upon the dorsal aspect of the RIGHT lateral ventricle), with mild adjacent subarachnoid hemorrhage/extension along the cerebral sulci. Additionally, mixed density component of up to 7 mm thickness in the right-sided supratentorial lateral convexity. Supratentorially on the LEFT, slender hyperdense component along the falx cerebri and 4 mm thickness in the occipital region, with mild mass effect. Also 6 mm thick extension along the right-sided tentorial leaflet and trace along the LEFT. Infratentorially, lobulated 7 mm thick component along the RIGHT sided convexity/tentorial leaflet and 6 mm along the LEFT, with mild mass effect. Mild/2 mm leftward shift of the septum pellucidum across midline is similar. Probably dural volume averaging related suggestion of minimal thickening in the retroclival extra-axial space, as before. Reidentified chronic changes of intracranial arterial wall calcifications, moderate-extensive nonspecific/likely chronic microangiopathic ischemic-type cerebral white matter changes, mild-moderate generalized cerebral and mild cerebellar volume loss with commensurate ventriculomegaly. Patent basal cisterns. Minimal paranasal sinus mucosal thickening. Bilateral ocular lens replacements. Some osteopenia. Atlantoaxial arthritic changes. Nonspecific mild bilateral mastoid air cells opacification. External auditory canal opacities (most commonly cerumen, up to moderate size on the RIGHT). Shaker Washer (topogram) images: Non-diagnostic. IMPRESSION: Brain CT shows no significant interval change, including of the burden of the supra and infratentorial subdural fluid collections/hemorrha ge and associated mass effect. Other details above. Hypoid Gear Tester: [facility] Transcribe Date/Time: Dec 25 2024 6:24A Dictated by : ANDREW ANTUNEZ MD This examination was interpreted and the report reviewed and electronically signed by: ANDREW ANTUNEZ MD on Dec 25 2024 6:35AM EST [id number] [facility] HISTORY PHYSICALon HISTORY PHYSICAL HNO ID: [id number] Author: ANGELITA SANDHU APRN.TEXTILE ENGINEER Service: Neurology ICU Author Type: Nurse Practitioner Type: H&P Filed: 12/25/2024 14:41 Note Text: SERVICE DATE: 12/25/2024 SERVICE TIME: 1:40 PM NEUROLOGICAL INTENSIVE CARE UNIT HISTORY AND PHYSICAL REASON FOR ADMISSION: LUE weakness Subjective HPI: 84yo male with PMHx significant for HTN, afib on Xarelto, BPH, DDD, and melanoma who initially presented to [facility] from OSH s/p fall with posterior head trauma and LLE weakness. CTH revealed acute right parafalcine SDH. Pt treated with Kcentra for reversal of xarelto at OSH. NSGY d/w pt and family sx evac of SDH. Pt/family have not come to a decision. O/N pt developed LUE weakness and ?LFD. Neurology consulted for further work up. PAST MEDICAL HISTORY Diagnosis Date BPH (benign prostatic hyperplasia) Diverticulosis of colon (without mention of hemorrhage) H/O degenerative disc disease Melanoma (HCC) Unspecified essential hypertension PAST SURGICAL HISTORY Procedure Laterality Date COLONOSCOP W/ OR W/O [facility] SPEC 09/17/03 Colonoscopy COLONOSCOP W/ OR W/O [facility] SPEC 06/02/2010 Colonoscopy PAST SURGICAL HISTORY OF 05/04 prostate surgery REMOVAL OF TONSILS,<14 Y/O 18 months old Tonsillectomy FAMILY HISTORY Problem Relation Age of Onset Colon Cancer Father ALLERGIES No Known Allergies PRIOR TO ADMISSION MEDICATIONS: MAGNESIUM GLYCINATE PO, Take 200 mg by mouth once daily., Disp: , Rfl: , Taking metoprolol succinate ER (TOPROL XL) 50 mg 24 hr tablet, Take 50 mg by mouth once daily., Disp: , Rfl: , Taking ibuprofen (ADVIL) 200 mg tablet, Take 200 mg by mouth every 8 hours., Disp: , Rfl: , Taking lisinopril (ZESTRIL) 20 mg tablet, Take 20 mg by mouth once daily., Disp: , Rfl: , Taking rivaroxaban (XARELTO) 20 mg tablet, Take 20 mg by mouth daily with dinner., Disp: , Rfl: , Taking Social History Tobacco Use Smoking status: Never Substance Use Topics Alcohol use: Yes Comment: [employer] Employer And Job Title: None on file Years Of Education Completed: Not specified Marital Status: to Latoya with 1 child REVIEW OF SYSTEMS: COMPLETE REVIEW OF SYSTEMS PAIN ASSESSMENT: History of chronic back pain. GENERAL: No weight loss, malaise or fevers HEENT: No changes in hearing or vision, no nose bleeds or other nasal problems. NECK: Negative for lumps, goiter, pain and significant neck swelling RESPIRATORY: Negative for cough, wheezing or shortness of breath. CARDIOVASCULAR: Negative for chest pain, leg swelling or palpitations. GI: Negative for abdominal discomfort, blood in stools or black stools or change in bowel habits. : No history of dysuria, frequency or incontinence. LEGAL RECOVERY SPECIALIST: N/A MUSCULOSKELETAL: Negative for joint pain or swelling, back pain or muscle pain. SKIN: Negative for lesions, rash, and itching. PSYCH: Negative for sleep disturbance, mood disorder and recent psychosocial stressors. HEMATOLOGY/LYMPHOLOG Y: Bruises easily 2/2 xarelto ENDOCRINE: Negative for cold or heat intolerance, polyuria, polydipsia and goiter. ALLERGIC/IMMUNOLOGIC : Negative for autoimmune diseases and allergies. NEURO: SEE HPI Objective Vital Signs (Last 24hrs min/max): BP (!) 143/125 Pulse 73 Temp 36.9 ?C (98.4 ?F) (Oral) Resp 13 Ht 190.5 cm (6' 3) Wt 97.6 kg (215 lb 2.7 oz) SpO2 92% BMI 26.89 kg/m? PHYSICAL EXAM: NEUROLOGICAL: GCS: Eyes: 4. Spontaneous Verbal: 5: Oriented Motor: 6: Obeys Motor commands Total: 15 Alert and oriented to person, place, month Speech clear Noted left facial asym, pt/family report as chronic PERRL EOMI visual field testing inconsistent +BTT +left hemiparesis. LUE proximal weakness 1/5 >distal weakness 2/5 LLE 1/5 RUE/LE 5/5 Sensation intact LT DATA: Diagnostic tests reviewed for today's visit: Most recent labs and imaging results. Lines, Drains, and Airways Line Duration Peripheral 12/23/24 [facility] Left Hand 20 Gauge 2 days Peripheral 12/23/24 [facility] Right Antecubital 20 Gauge 2 days Peripheral 12/23/24 [facility] Right Hand 20 Gauge 2 days Drain Duration External Collection Device 12/24/24 1500 [facility] <1 day PERSONAL INVOLVEMENT IN CARE: Reviewing initiation, responses and adjustments to therapies, coordination of care, and updating family with Staff Physician, Dr. De Paz. Assessment AND Plan 84yo male with PMHx significant for HTN, afib on Xarelto, BPH, DDD, and melanoma who initially presented to [facility] from OSH s/p fall with posterior head trauma and LLE weakness. CTH revealed acute right parafalcine SDH. Kcentra for reversal of xarelto at OSH. NSGY following for possible evac O/N (12/25) pt developed LUE weakness and ?LFD. Neurology * SDH (subdural hematoma) (HCC)- (present on admission) CTH revealed acute right parafalcine SDH. S/p fall with posterior head trauma Kcentra for reversal of xarel (more content not included)... [facility] THERAPY NTon 12-25-2024 THERAPY NT HNO ID: [id number] Author: ESME KAY, CCC-SUMMER ANALYST Service: Speech/Swallow Author Type: Speech Language Pathologist Type: Therapy (PT/OT/Speech/Resp) Filed: 12/25/2024 16:08 Note Text: Speech Therapy Speech Evaluation SERVICE DATE: 12/25/2024 SERVICE TIME: 1438 to 1454 ROOM: [address] Communication deficits identified: Cognitive deficits RECOMMENDATIONS Nursing Recommendations Promote insight/safety opportunities Response to Therapy Interventions: Fatigue, Good participation in activities, Receptive family/caregivers Rehabilitation Precautions: Cognitive Linguistics Deficits DISCHARGE RECOMMENDATIONS Recommended Discharge Disposition: Acute Rehab Justification for Recommended Discharge Disposition: Patient requires an intensive inpatient rehabilitation therapy program due to:, complexity requiring a multi-disciplinary team approach, new/worsened cognitive deficits related to current diagnosis, requires active, intensive and ongoing intervention of multiple therapy disciplines CURRENT HOSPITAL COURSE Transfer from [place] post fall. 12/23 MRI Brain: large right parafalcine convexity subdural hemorrhage Reason for Speech Therapy Consult: TBI Relevant Past Medical History: CHRISTOPHER, HTN HOME ENVIRONMENT / PRIOR FUNCTIONAL LEVEL Prior Functional Level: Within Functional Limits Patient Lives With: Spouse Prior Swallowing Function/Diet Textures: Regular Consistency, Thin Liquids IDDSI Level 0 SUBJECTIVE Alert, up in bed and agreeable to evaluation THERAPY DIAGNOSIS Cognitive deficits following cerebral infarction TREATMENT INTERVENTIONS Speech Language Eval (63260) Skilled Treatment Time (minutes): 16 $ Speech Language Eval (26899) Billed Units: 1 unit TRAINING AND EDUCATION PROVIDED IN Cognitive Linguistic Strategies THERAPEUTIC SKILLS USED Discharge planning, Family / caregiver counseling / training, Education on role of discipline / importance of activity, Verbal cuing OBJECTIVE Current Status Oral Hygiene: Clear, moist oral cavity Dentition: Retains Natural Dentition Current Feeding Method: Oral Current Diet Textures: Regular Consistency, Thin Liquids IDDSI Level 0 Current Level Of Communication: Verbal Current Management Of Secretions: Able to self-manage Oral Motor Exam: Within Functional Limits COGNITION Cognitive Status: Attention Deficit: Sustained Memory Deficits: Immediate, Short Term Executive Function Deficits: Problem Solving, Safety Awareness The Cognitive Log (Cog-Log) is designed to be a quick quantitative measure of cognition status for use at the bedside with rehabilitation inpatients. It is intended for individuals who have achieved consistent accurate orientation, such as measured by the Orientation Log (O-Log). The Cog-Log can be used to document cognitive progress on a daily basis. All items are scored from 0 to 3 for a total possible score of 30. 3 = correct spontaneous response 2 = correct upon logical cueing (e.g., That was yesterday, so today must be...) 1 = correct upon multiple choice or phonemic cueing 0 = incorrect despite cueing, inappropriate response, or unable to respond Stimulus Response/Score Date 08/26 Time 08/26 Name of Hospital 08/26 Repeat Address 06/28 20-1 08/26 Months Reversed 30 Seconds 07/29 [id number] 08/26 Go/No-Go 08/26 Address Recall 06/28 Total SPEECH/VOICE/LANGUAG E Speech Production: Within Functional Limits Expressive and Receptive Language: Within Functional Limits GOALS COGNITION: Patient will demonstrate knowledge of taught compensatory strategies for functional cognitive-linguistic skills Cognitive Goals: Patient will improve functional auditory memory skills to 90% accuracy given minimal cues so that the patient may apply safety precautions for personal welfare. Patient will demonstrate use of complex problem solving skills with 90% accuracy given minimal cues so that the patient may participate in personal discharge planning. Speech Rehab Potential: Good Good Rehab Potential Due To: Good support system/ coping skills Patient /Caregiver Goals: Improve Cognition ACUTE CARE TREATMENT PLAN ST Frequency: 2 Times Per Week Treatment Interventions: Cognitive-Linguistic Management Plan of Care Developed with: Patient, Family Plan for next visit: Cognitive Linguistic Strategies SIGNATURE: Esme Kay CCC-SUMMER ANALYST PATIENT NAME: Sung Yañez DATE: December 25, 2024 TIME: 2:59 PM [facility] TSH SerPl-aCncon 12-25-2024 TSH Qn 1.880 m[IU]/L Normal 0.270-4.200 [facility] Comment on above: Order Comment: Speci men Type: BLOOD SPECIMENOrdering Facility: [facility] Address: [address] [place] [address] Performed By: #### 3 016-3, 2157-6 ####[facility] LABORATORYCLIA [id number] [place] [address] [place] XR SHLDR >/=3V AP/KAYLA AP/OTH R LTon 12-25-2024 XR SHLDR >/=3V AP/KAYLA AP/OTHR LT * * *Final Report* * * DATE OF EXAM: Dec 25 2024 6:55PM [id number] - XR SHLDR >/=3V AP/KAYLA AP/OTHR LT / PROCEDURE REASON: Other * * * * Physician Interpretation * * * * EXAM TITLE: XR SHLDR >/=3V AP/KAYLA AP/OTHR LT, XR SHLDR >/=3V AP/KAYLA AP/OTHR RT DATE: 12/26/2024 8:33 AM INDICATION: Bilateral shoulder pain COMPARISON: None. FINDINGS: The patient was unable to tolerate axillary views. Right shoulder: Diffuse osteopenia. Mild degenerative changes of the glenohumeral joint. No fracture or dislocation. Left shoulder: Mild degenerative changes of the glenohumeral joint. Diffuse osteopenia. Few dystrophic appearing calcifications within the soft tissues near the neck of the humerus. No fracture or dislocation. IMPRESSION: No acute radiographic abnormality. Hypoid Gear T[facility] Transcribe Date/Time: Dec 26 2024 8:33A Dictated by : RAHAT HICKMAN MD This examination was interpreted and the report reviewed and electronically signed by: RAHAT HICKMAN MD on Dec 26 2024 8:35AM EST [id number] [facility] XR SHLDR >/=3V AP/KAYLA AP/OTH R RTon 12-25-2024 XR SHLDR >/=3V AP/KAYLA AP/OTHR RT * * *Final Report* * * DATE OF EXAM: Dec 25 2024 6:55PM [id number] - XR SHLDR >/=3V AP/KAYLA AP/OTHR RT / PROCEDURE REASON: Other * * * * Physician Interpretation * * * * EXAM TITLE: XR SHLDR >/=3V AP/KAYLA AP/OTHR LT, XR SHLDR >/=3V AP/KAYLA AP/OTHR RT DATE: 12/26/2024 8:33 AM INDICATION: Bilateral shoulder pain COMPARISON: None. FINDINGS: The patient was unable to tolerate axillary views. Right shoulder: Diffuse osteopenia. Mild degenerative changes of the glenohumeral joint. No fracture or dislocation. Left shoulder: Mild degenerative changes of the glenohumeral joint. Diffuse osteopenia. Few dystrophic appearing calcifications within the soft tissues near the neck of the humerus. No fracture or dislocation. IMPRESSION: No acute radiographic abnormality. Hypoid Gear Tester: [facility] Transcribe Date/Time: Dec 26 2024 8:33A Dictated by : RAHAT HICKMAN MD This examination was interpreted and the report reviewed and electronically signed by: RAHAT HICKMAN MD on Dec 26 2024 8:35AM EST [id number] CN [facility] ALLIED HEALTHon 12-24-2024 ALLIED HEALTH HNO ID: [id number] Author: BEATRIZ FORTUNE RT(R) Service: ? Author Type: Technologist Type: Allied Health Filed: 12/24/2024 05:59 Note Text: Radiology Service Progress Note PATIENT NAME: Sung Yañez DATE OF SERVICE: December 24, 2024 TIME: 5:58 AM PATIENT IDENTITY VERIFICATION COMPLETED USING TWO (2) IDENTIFIERS: Name and Date of confirmed by identification band. FALL SCREENING: Has the patient had 2 falls in the last year or 1 fall with injury or currently using an Ambulatory Assistive Device (Walker, Cane, Wheelchair, Crutches, etc.)? Emergency Room Patient: Screened in ED PATIENT GENDER DATA: Assigned male at PATIENT RELEVANT IMPLANT DATA REVIEWED: Yes PATIENT PRESENTS WITH AN IMPLANTABLE OR ATTACHED SURG PHYSICIAN ASST: No RADIOLOGY DEPARTMENT: CT; Exam(s) Completed: Brain PERIPHERAL IV DATA: Not applicable SIGNED BY: RT Chacho(R) December 24, 2024 5:58 AM [facility] Basic metabolic 2000 panelon 12-24-2024 Anion gap [Moles/Vol] 8 mmol/L Normal 8-15 [facility] Comment on above: Order Comment: Speci men Type: BLOOD SPECIMENOrdering Facility: [facility] Address: [address] [place], [place] [id number] Performed By: #### 1 9123-9, 84250-3, 2777-1 ####[facility] LABORATORYCLIA [id number] [place] [address] [place] Calcium [Mass/Vol] 8.5 mg/dL Normal 8.5-10.2 [facility] Comment on above: Order Comment: Speci men Type: BLOOD SPECIMENOrdering Facility: [facility] Address: [address] [place] [address] Performed By: #### 1 9123-9, 35990-1, 2776- ####[facility] LABORATORYCLIA [id number] [place] [address] [place] Chloride [Moles/Vol] 106 mmol/L Normal 98-107 [facility] Comment on above: Order Comment: Speci men Type: BLOOD SPECIMENOrdering Facility: [facility] Address: [address] [place] [address] Performed By: #### 1 9123-9, 09373-8, 2776- ####[facility]ORATORYCLIA [id number] [address] STATES OF [facility] CO2 [Moles/Vol] 23 mmol/L Normal 22-30 [facility] Comment on above: Order Comment: Speci men Type: BLOOD SPECIMENOrdering Facility: [facility] Address: [address] [place] [address] Performed By: #### 1 9123-9, 00439-5, 2776-06 ####[facility]ATORYCLIA [id number] [place] [address] [place] Creatinine [Mass/Vol] 0.81 mg/dL Normal 0.73-1.22 [facility] Comment on above: Order Comment: Speci men Type: BLOOD SPECIMENOrdering Facility: [facility] Address: [address] [place] [address] Performed By: #### 1 9123-9, 03231-6, 2776- ####[facility]ORATORYCLIA [id number] [address] [place] Creatinine and Glomerular filtration rate.predicted panel (S/P/Bld) 88 mL/min/1.73m??? Normal >=60 [facility] Comment on above: Order Comment: Vaishnavi mansfield Type: BLOOD SPECIMENOrdering Facility: [facility] Address: [address] [place] [address] Result Comment: Reha mated Glomerular Filtration Rate (eGFR) is calculated using the 2020 CKD-EPI creatinine equation. This equation utilizes serum creatinine, sex, and age as parameters. The creatinine assay has traceable calibration to isotope dilution-mass spectrometry. Refer to KDIGO guidelines for clinical interpretation. In patients with unstable renal function, e.g. those with acute kidney injury, the eGFR may not accurately reflect actual GFR. Performed By: #### 1 9123-9, 72404-9, 277- ####[facility] [id number] [place] [address] [place] Glucose [Mass/Vol] 91 mg/dL Normal 74-99 [facility] Comment on above: Order Comment: Vaishnavi mansfield Type: BLOOD SPECIMENOrdering Facility: [facility] Address: [address] [place] [address] Result Comment: The [place] Diabetes Association (ADA) provides guidance for cutoff values for fasting glucose and random glucose. The ADA defines fasting as no caloric intake for at least 8 hours. Fasting plasma glucose results between 100 to 125 mg/dL indicate increased risk for diabetes (prediabetes). Fasting plasma glucose results greater than or equal to 126 mg/dL meet the criteria for diagnosis of diabetes. In the absence of unequivocal hyperglycemia, results should be confirmed by repeat testing. In a patient with classic symptoms of hyperglycemia or hyperglycemic crisis, random plasma glucose results greater than or equal to 200 mg/dL meet the criteria for diagnosis of diabetes. Reference: Standards of Medical Care in Diabetes 2016, [place] Diabetes Association. Diabetes Care. 2016.39(Suppl 1). Performed By: #### 1 9123-9, 88727-4, 2776-06 ####[facility] LAB[facility]ATORYCLIA [id number] [place] [address] [place] Potassium [Moles/Vol] 4.2 mmol/L Normal 3.7-5.1 [facility] Comment on above: Order Comment: Vaishnavi mansfield Type: BLOOD SPECIMENOrdering Facility: [facility] Address: [address] [place] [id number] Performed By: #### 1 9123-9, 92799-2, 2777-1 ####[facility]ORATORYCLIA [id number] [place] [id number] [place] [facility] Sodium [Moles/Vol] 137 mmol/L Normal 136-144 [facility] Comment on above: Order Comment: Speci men Type: BLOOD SPECIMENOrdering Facility: [facility] Address: [address] [place] [address] Performed By: #### 1 9123-9, 74776-4, 277- ####[facility]ORYCLIA [id number] [address] STATES [facility] Urea nitrogen [Mass/Vol] 12 mg/dL Normal 9-24 [facility] Comment on above: Order Comment: Speci men Type: BLOOD SPECIMENOrdering Facility: [facility] Address: [address] [place] [address] Performed By: #### 1 9123-9, 18208-5, 27712-24 ####[facility]ATORYCLIA [id number] [address] [place] CBC panel Auto (Bld)on 12-24 Erythrocyte distribution width (RBC) [Ratio] 13.6 % Normal 11.5-15.0 [facility] Comment on above: Order Comment: Speci men Type: BLOOD SPECIMENOrdering Facility: [facility] Address: [address] [place] [address] Performed By: #### 5 8410-2 ####[facility]ORYCLIA [id number] [address] [address] STATES OF [facility] Hematocrit (Bld) [Volume fraction] 38.4 % Low 39.0-51.0 [facility] Comment on above: Order Comment: Speci men Type: BLOOD SPECIMENOrdering Facility: [facility] Address: [address] [place] [address] Performed By: #### 5 8410-2 ####[facility] LABORATORYCLIA [id number] [address] Hemoglobin (Bld) [Mass/Vol] 12.5 g/dL Low 13.0-17.0 [facility] Comment on above: Order Comment: Speci men Type: BLOOD SPECIMENOrdering Facility: [facility] Address: [address] [place] [address] Performed By: #### 5 8410-2 ####[facility] LABORATORYCLIA [id number] [address] MCH (RBC) [Entitic mass] 30.8 pg Normal 26.0-34.0 [facility] Comment on above: Order Comment: Speci men Type: BLOOD SPECIMENOrdering Facility: [facility] Address: [address] [place] [address] Performed By: #### 5 8410-2 ####[facility] LABORATORYCLIA [id number] [address] MCHC (RBC) [Mass/Vol] 32.6 g/dL Normal 30.5-36.0 [facility] Comment on above: Order Comment: Speci men Type: BLOOD SPECIMENOrdering Facility: [facility] Address: [address] [place] [address] Performed By: #### 5 8410-2 ####[facility]ORATORYCLIA [id number] [address] MCV (RBC) [Entitic vol] 94.6 fL Normal 80.0-100.0 [facility] Comment on above: Order Comment: Speci men Type: BLOOD SPECIMENOrdering Facility: [facility] Address: [address] [place] [address] Performed By: #### 5 8410-2 ####[facility]ATORYCLIA [id number] [address] Nucleated RBC (Bld) [#/Vol] 10*3/uL Normal <0.01 [facility] Comment on above: Order Comment: Speci men Type: BLOOD SPECIMENOrdering Facility: [facility] Address: [address] [place] [address] Performed By: #### 5 8410-2 ####[facility]ORATORYCLIA [id number] [address] [place] Platelet mean volume (Bld) [Entitic vol] 11.9 fL Normal 9.0-12.7 [facility] Comment on above: Order Comment: Speci men Type: BLOOD SPECIMENOrdering Facility: [facility] Address: [address] [place] [address] Performed By: #### 5 8410-2 ####[facility]ATORYCLIA [id number] [address] [place] Platelets (Bld) [#/Vol] 188 10*3/uL Normal 150-400 [facility] Comment on above: Order Comment: Speci men Type: BLOOD SPECIMENOrdering Facility: [facility] Address: [address] [place] [address] Performed By: #### 5 8410-2 ####[facility]ATORYCLIA [id number] [place] [address] [place] RBC (Bld) [#/Vol] 4.06 10*6/uL Low 4.20-6.00 [facility] Comment on above: Order Comment: Speci men Type: BLOOD SPECIMENOrdering Facility: [facility] Address: [address] [place] [address] Performed By: #### 5 8410-2 ####[facility]ATORYCLIA [id number] [place] [address] [place] WBC (Bld) [#/Vol] 4.93 10*3/uL Normal 3.70-11.00 [facility] Comment on above: Order Comment: Speci men Type: BLOOD SPECIMENOrdering Facility: [facility] Address: [address] [place] [address] Performed By: #### 5 8410-2 ####[facility] LABORATORYCLIA [id number] [address] OF [place] CONSULTon 12-24-2024 CONSULT HNO ID: [id number] Author: ANAID VILLANUEVA PA-C Service: Neuroendovascular Intervention Author Type: Physician Matrix Plater Type: Consults Filed: 12/24/2024 12:54 Note Text: NEUROENDOVASCULAR CONSULT Patient Name: Sung Yañez CONSULTED BY: RAS CONSULTED FOR: Subdural hematoma CHIEF COMPLAINT: Headache, LLE weakness HPI: Sung Yañez is an 84 year old male w/ PMHx significant for afib (on Xarelto), CHRISTOPHER, HTN, melanoma, neuropathy, and chronic low back pain, who presented 12/23 with headache and LLE weakness. Patient experienced GLF on concrete 12/20, states that he hit his head but did not lose consciousness. On the morning of 12/23 he started experiencing headache and left lower leg weakness. CTH notable for right parafalcine subdural hematoma and right subdural fluid collection along frontal lobe and temporal lobe. He denies nausea or vomiting. States that he has had some intermittent vertigo since Monday evening. Has noticed a few short-term episodes of double vision. Aside from chronic neuropathy, denies numbness/tingling. Continues to experience left leg weakness. Recent use of any anti-plts or anti-coagulants: Yes: Xarelto (given Kcentra at OSH) PAST MEDICAL HISTORY: PAST MEDICAL HISTORY Diagnosis Date BPH (benign prostatic hyperplasia) Diverticulosis of colon (without mention of hemorrhage) H/O degenerative disc disease Melanoma (HCC) Unspecified essential hypertension PAST SURGICAL HISTORY: PAST SURGICAL HISTORY Procedure Laterality Date COLONOSCOP W/ OR W/O [facility] SPEC 09/17/03 Colonoscopy COLONOSCOP W/ OR W/O [facility] SPEC 06/02/2010 Colonoscopy PAST SURGICAL HISTORY OF 05/04 prostate surgery REMOVAL OF TONSILS,<12 Y/O 18 months old Tonsillectomy FAMILY HISTORY: FAMILY HISTORY Problem Relation Age of Onset Colon Cancer Father SOCIAL HISTORY: Social History Tobacco Use Smoking status: Never Substance Use Topics Alcohol use: Yes Comment: ocass MEDICATIONS: MAGNESIUM GLYCINATE POTake 200 mg by mouth once daily.Disp: Rfl: lisinopril (ZESTRIL) 20 mg tabletTake 20 mg by mouth once daily.Disp: Rfl: metoprolol tartrate, short acting, (LOPRESSOR) 50 mg tabletTake 50 mg by mouth once daily.Disp: Rfl: rivaroxaban (XARELTO) 20 mg tabletTake 20 mg by mouth daily with dinner.Disp: Rfl: bisoprolol-hydrochlo rothiazide (ZIAC) 5-6.25 mg ORAL per tabletTake one(1) tablet daily.Disp: Rfl: 0 (Patient not taking: Reported on 12/23/2024) Pyridoxine HCl (VITAMIN B-6) 200 mg ORAL tabletTake one(1) tablet daily.Disp: Rfl: 0 (Patient not taking: Reported on 12/23/2024) multivitamin (DAILY MULTI-VITAMIN) ORAL tabletTake one(1) tablet daily.Disp: Rfl: 0 (Patient not taking: Reported on 12/23/2024) aspirin, enteric coated (ECOTRIN LOW STRENGTH) 81 mg ORAL EC tabletTake one(1) tablet daily.Disp: Rfl: 0 (Patient not taking: Reported on 12/23/2024) Current Facility-Administere d Medications Medication Dose Route Frequency NaCl 0.9% iv flush bag 20 mL INTRAVENOUS PRN potassium chloride ER 20-40 mEq tab(s) (KLOR-CON) 20-40 mEq ORAL/FEEDING TUBE PRN Or potassium chloride iv piggyback 20 mEq/100 mL 20 mEq INTRAVENOUS PRN magnesium sulfate iv piggyback in sterile water 2 g 50 mL 2 g INTRAVENOUS PRN phosphorus 500 mg tab(s) (K PHOS NEUTRAL) 500 mg ORAL/FEEDING TUBE PRN(NO DISPENSE) calcium gluconate iv piggyback 2 g in NaCl (iso-osmotic) 100 mL 2 g INTRAVENOUS PRN(NO DISPENSE) ondansetron 4 mg tab(s) (ZOFRAN) 4 mg ORAL q 6 H PRN Or ondansetron (PF) 4 mg injection (ZOFRAN) 4 mg INTRAVENOUS q 6 H PRN acetaminophen 975 mg tab(s) (TYLENOL) 975 mg ORAL q 6 H oxyCODONE IR 2.5-5 mg tab(s) (ROXICODONE) 2.5-5 mg ORAL q 4 H PRN senna-docusate 8.6-50 mg 1 tablet (SENNA-S) 1 tablet ORAL BID levETIRAcetam 1,000 mg tab(s) (KEPPRA) 1,000 mg ORAL BID iv contrast (radiology procedure) INTRAVENOUS DIRECTED PRN iv contrast (radiology procedure) INTRAVENOUS DIRECTED PRN iv contrast (radiology procedure) INTRAVENOUS DIRECTED PRN metoprolol succinate ER 50 mg tab(s) (TOPROL XL) 50 mg ORAL DAILY lisinopril 20 mg tab(s) (ZESTRIL) 20 mg ORAL DAILY ALLERGIES: ALLERGIES No Known Allergies COMPLETE REVIEW OF SYSTEMS: ROS negative unless otherwise noted in HPI PHYSICAL EXAM: 12/24/24 0800 12/24/24 0900 12/24/24 0932 12/24/24 1000 BP: 132/91 143/96 146/82 Pulse: 67 77 79 73 Resp: 16 14 15 Temp: TempSrc: SpO2: 96% 93% 92% Weight: Height: GENERAL: Patient seen resting in bed, family at bedside. NEUROLOGICAL: AANDOx3. Speech clear. PERRL. EOM intact. Visual bustillo full FS, TM. L ptosis noted. BUE 5/5 RLE 5/5 LLE 1/5, minimal effort against gravity SILT No ataxia RESULTS Myself and the neuroendovascular staff have independently reviewed the following imaging studies and laboratory test results. Imaging: CT brain wo contrast (12/23/2024) - Large subdural hematoma along right side of falx, most promi (more content not included)... Normal [facility] CONSULT PROGon 12-24-2024 CONSULT PROG HNO ID: [id number] Author: KATI CHAUHAN MD Service: General Surgery Author Type: Physician Type: Consult Progress Note Filed: 12/24/2024 10:34 Note Text: INPATIENT SICU PROGRESS NOTE SERVICE DATE: 12/24/2024 SERVICE TIME: 7:56 AM Subjective Patient seen and examined this morning, NAOE. VSS. Still having weakness in LLE. Current Facility-Administere d Medications Medication Dose Route Frequency NaCl 0.9% iv flush bag 20 mL INTRAVENOUS PRN potassium chloride ER 20-40 mEq tab(s) (KLOR-CON) 20-40 mEq ORAL/FEEDING TUBE PRN Or potassium chloride iv piggyback 20 mEq/100 mL 20 mEq INTRAVENOUS PRN magnesium sulfate iv piggyback in sterile water 2 g 50 mL 2 g INTRAVENOUS PRN phosphorus 500 mg tab(s) (K PHOS NEUTRAL) 500 mg ORAL/FEEDING TUBE PRN(NO DISPENSE) calcium gluconate iv piggyback 2 g in NaCl (iso-osmotic) 100 mL 2 g INTRAVENOUS PRN(NO DISPENSE) ondansetron 4 mg tab(s) (ZOFRAN) 4 mg ORAL q 6 H PRN Or ondansetron (PF) 4 mg injection (ZOFRAN) 4 mg INTRAVENOUS q 6 H PRN acetaminophen 975 mg tab(s) (TYLENOL) 975 mg ORAL q 6 H oxyCODONE IR 2.5-5 mg tab(s) (ROXICODONE) 2.5-5 mg ORAL q 4 H PRN senna-docusate 8.6-50 mg 1 tablet (SENNA-S) 1 tablet ORAL BID levETIRAcetam 1,000 mg tab(s) (KEPPRA) 1,000 mg ORAL BID iv contrast (radiology procedure) INTRAVENOUS DIRECTED PRN iv contrast (radiology procedure) INTRAVENOUS DIRECTED PRN iv contrast (radiology procedure) INTRAVENOUS DIRECTED PRN Objective VITAL SIGNS BP 149/77 Pulse 63 Temp (Src) 97.7 (Oral) Resp 14 Ht 6' 3 (1.91m) Wt 209 lb 7 oz (95.0kg) SpO2 98% BMI 26.18 kg/(m2). O2 Therapy: Nasal Cannula, Liters (Numeric Only): 2 Temp (24hrs), Av.7 ?C (98.1 ?F), Min:36.5 ?C (97.7 ?F), Max:36.9 ?C (98.4 ?F) Date 12/23/24699 - 12/24/24 0659 12/24/24699 - 12/25/24 0659 Shift 6267-2647 2413-7217 6755-2170 24 Hour Total 8468-7789 9165-6300 5659-1751 24 Hour Total INTAKE PO 90 110 140 340 PO 90 110 140 340 IV 200 200 Volume (mL) (calcium gluconate iv piggyback 2 g in NaCl (iso-osmotic) 100 mL) 200 200 Shift Total 90 110 340 540 OUTPUT Urine 750 629 538 1971 Output ( Indwelling Urinary Catheter 12/23/24 [facility] ) 750 794 146 4109 Shift Total 750 333 025 0100 Weight (kg) 95 95 95 95 95 95 95 95 PHYSICAL EXAM: GENERAL: Alert. No distress. Resting comfortably. NEURO: AANDOx3. Weakness in dorsiflexion, plantarflexion, and weakness in hip flexion. Sensation grossly intact. HEENT: Normocephalic. Atraumatic. EOMI. LUNGS: Unlabored breathing. Equal excursion bilaterally. CARDIAC: Regular rate, on tele, Good perfusion throughout. ABDOMEN: Soft, non-tender, non-distended. No rebound or guarding. EXTREMITIES: HELMS. No deformities. SKIN: No obvious jaundice or pallor. DATA: Diagnostic tests reviewed for today's visit: No results for input(s): BODSITE, CTYPE, PH, PCO2, PO2, BE, HCO3, CO2CT, O2HB, COHB, MHGB, TEMP, PHTC, PCO2T, PO2T, O2AD in the last 72 hours. 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 Presented to [place] [facility] 3 days later and was transferred to [facility] on 12/23/2024. Admitted to the SICU. Hospital course: 12/23: admit to SICU Neuro: SDH: - Neurosurgery consulted - Q1 neuro checks - rCTh #1 - slightly increased size, he will need further repeat CT's to ensure stability - rCTH #2 - stable - MRI brain - irregular enhancement within collection extrav vs. Spot sign - NIL consulted recs pending - Keppra 1000 mg BID x 14 doses end (12/29) - S/p KCentra given at outside ED for home Xarelto reversal - Hold home Xarelto at this time, Hold DVT prophylaxis - Will need PT/OT/SUMMER ANALYST recs - Will need to follow up with neurosurgery after hospital discharge - pain and nausea prn CV: HTN - held home lisinopril - metoprolol restarted - Tele - EKG as indcated Resp: - Sating well on O2 Therapy: Nasal Cannula GI: - DIET NPO - Bowel Regimen: senna - GI ppx: None Renal: - strict Is/Os - electrolyte replacement per unit protocol Creatinine Date Value Ref Range Status 12/24/2024 0.81 0.73 - 1.22 mg/dL Final 12/23/2024 0.77 0.73 - 1.22 mg/dL Final Magnesium Date Value Ref Range Status 12/24/2024 2.1 1.7 - 2.3 mg/dL Final Potassium (more content not included)... Normal [facility] CT BRAIN WO IVCONon 12-25-[address] BRAIN WO IVCON * * *Final Report* * * DATE OF EXAM: Dec 24 2024 6:01AM [facility] - CT BRAIN WO IVCON / PROCEDURE REASON: sdh follow up * * * * Physician Interpretation * * * * EXAMINATION: CT BRAIN WITHOUT IV CONTRAST CLINICAL HISTORY: Subdural hemorrhage follow-up TECHNIQUE: Serial axial images without IV contrast were obtained from the vertex to the foramen magnum. MQ: [id number]_3 CT Radiation dose: Integrated Dose-Length Product (DLP) for this visit = 760 mGy*cm CT Dose Reduction Employed: Automated exposure control(AEC) and iterative recon COMPARISON: CT brain 12/23/2024 6:28 PM and 2:09 PM. MRI brain 12/23/2024. RESULT: Localizer images: Unremarkable. Post-operative change: None. Acute change: No evidence of an acute infarct or other acute parenchymal process. Hemorrhage: Right parasagittal subdural hemorrhage again noted with components extending along the right tentorium and right cerebral convexity. The paracentral component is minimally decreased in thickness measuring 2.2 cm on the current exam and 2.6 cm on the prior exam. Stable small subdural hemorrhage noted along the left tentorium and posterior left interhemispheric falx. Small subdural hemorrhage again noted along the lateral right cerebellum that appears stable. Minimal subarachnoid hemorrhage noted in the parasagittal sulci of both cerebral hemispheres is again noted. ECASS hemorrhagic transformation score: Not Applicable Mass Lesion / Mass Effect: There is mass effect on the right lateral ventricle. Minimal midline shift of the anterior septum pellucidum to the left of midline appears similar. No significant mass effect. Chronic change: Patchy foci of low attenuation are present within the supratentorial white matter, a nonspecific finding that most commonly represents moderate small vessel disease. Parenchyma: There is at least mild generalized volume loss. Ventricles: The ventricles are within normal limits of size and configuration for age. Paranasal sinuses and skull base: There is fluid noted in a few superior right maxillary, likely incidental. The visualized paranasal sinuses are grossly clear. The skull base and imaged soft tissues are unremarkable. IMPRESSION: 1. Slight decreased size of the parasagittal component of right subdural hemorrhage. Mild mass effect and minimal midline shift appears similar. 2. Stable appearing small left cerebral subdural hemorrhage and right cerebellar subdural hemorrhage. 3. Chronic small vessel ischemic changes of the supra tentorial white matter. Generalized brain parenchymal volume loss. Hypoid Gear Tester: [facility] Transcribe Date/Time: Dec 24 2024 7:37A Dictated by : AL VALDES MD This examination was interpreted and the report reviewed and electronically signed by: AL VALDES MD on Dec 24 2024 7:56AM EST [id number] Normal [facility] Calcium.ionized [Moles/Vol]o n 12-24-2024 Calcium.ionized (BldV) [Mass/Vol] 1.14 mmol/L Normal 1.08-1.30 [facility] Comment on above: Order Comment: Speci men Type: BLOOD SPECIMENOrdering Facility: [facility] Address: [address] [place] [address] Performed By: #### 1 995-0 ####[facility] LABORATORYCLIA [id number] [place] [address] [place] Calcium.ionized adjusted to pH 7.4 (Bld) [Moles/Vol] 1.13 mmol/L Normal 1.08-1.30 [facility] Comment on above: Order Comment: Speci men Type: BLOOD SPECIMENOrdering Facility: [facility] Address: [address] [place] [address] Performed By: #### 1 995-0 ####[facility] LABORATORYCLIA [id number] [address] [facility] Magnesium [Mass/Vol] 2.1 mg/dL Normal 1.7-2.3 [facility] Comment on above: Order Comment: Speci men Type: BLOOD SPECIMENOrdering Facility: [facility] Address: [address] [place] [address] Performed By: #### 1 9123-9, 94936-0, 2777-1 ####[facility]ATORYCLIA [id number] [address] Phosphate SerPl-nc 12-24 Phosphate [Mass/Vol] 3.7 mg/dL Normal 2.7-4.8 [facility] Comment on above: Order Comment: Speci men Type: BLOOD SPECIMENOrdering Facility: [facility] Address: [address] [place] [address] Performed By: #### 1 9123-9, 58210-4, 2777-1 ####[facility] LABORATORYIA [id number] [place] [address] [place] 12 Lead EKGon 12-23-2024 12 Lead EKG [facility] Cardiovascular Services [address] [place] [address] 12 Lead EKG 12/23/24 0832 MR#: [id number] Acct: [id number] Name: SUNG YAÑEZ Rep #: [id number] : 1940 84 From: Jalen Clay MD Attending Dr: Status: DEP ER Ordering Dr: Frankie Yu DO Date: 12/23/24 Location: ED Sex: M C Admitted: Test Reason : FALL/STROKE TEAM Blood Pressure : */* mmHG Vent. Rate : 87 BPM Atrial Rate : * BPM P-R Int : * ms QRS Dur : 98 ms QT Int : 382 ms P-R-T Axes : * -16 24 degrees QTcB Int : 459 ms Atrial fibrillation Nonspecific ST abnormality Abnormal ECG Confirmed by JALEN CLAY MD ([id number]), video tape editor ANGELITA JONES ([id number]) on 12/24/2024 1:36:36 PM Referred By: Confirmed By: JALEN CLAY MD 12/24/24 1336 Date Jalen Clay MD CC: Dr. Briseida Vergara MD; Dr. Frankie Yu DO Signed Normal [facility] ALLIED HEALTHon 12-23-2024 ALLIED HEALTH HNO ID: [id number] Author: RUBÉN NGUYEN RT(R) Service: Radiology Author Type: Technologist Type: Allied Health Filed: 12/23/2024 18:52 Note Text: Radiology Service Progress Note DATE OF SERVICE: December 23, 2024 TIME: 6:52 PM PATIENT IDENTITY VERIFICATION COMPLETED USING TWO (2) STANDARD IDENTIFIERS: Name and Date of confirmed by patient verbally and Name and Date of confirmed by identification band. FALL SCREENING: Has the patient had 2 falls in the last year or 1 fall with injury or currently using an Ambulatory Assistive Device (Walker, Cane, Wheelchair, Crutches, etc.)? Inpatient: Screened on floor PATIENT GENDER DATA: Assigned male at PATIENT RELEVANT IMPLANT DATA REVIEWED: Yes PATIENT PRESENTS WITH AN IMPLANTABLE OR ATTACHED SURG PHYSICIAN ASST: No ALLERGIES: Reviewed and unchanged CONTRAST ALLERGY: NO. EXAM: MRI - CONTRAST TYPE: GROUP II PERIPHERAL IV DATA: Inpatient - refer to [facility] documentation RADIOLOGY DEPARTMENT: MR; Exam(s) Completed: Head: Routine Brain. Aromatherapy Administered: No SIGNATURE: RT Yomi(R) PATIENT NAME: Sung Yañez DATE: December 23, 2024 TIME: 6:52 PM [facility] ALLIED HEALTH HNO ID: [id number] Author: CATHY GARAY Tech Service: Radiology Author Type: Technologist Type: Allied Health Filed: 12/23/2024 18:29 Note Text: Radiology Service Progress Note PATIENT NAME: Sung Yañez DATE OF SERVICE: December 23, 2024 TIME: 6:29 PM PATIENT IDENTITY VERIFICATION COMPLETED USING TWO (2) IDENTIFIERS: Name and Date of confirmed by patient verbally and Name and Date of confirmed by identification band. FALL SCREENING: Has the patient had 2 falls in the last year or 1 fall with injury or currently using an Ambulatory Assistive Device (Walker, Cane, Wheelchair, Crutches, etc.)? Inpatient: Screened on floor PATIENT GENDER DATA: Assigned male at PATIENT RELEVANT IMPLANT DATA REVIEWED: Not Applicable PATIENT PRESENTS WITH AN IMPLANTABLE OR ATTACHED SURG PHYSICIAN ASST: No RADIOLOGY DEPARTMENT: CT; Exam(s) Completed: Brain PERIPHERAL IV DATA: Not applicable SIGNED BY: Es Lester December 23, 2024 6:29 PM Normal [facility] ALLIED HEALTH HNO ID: [id number] Author: AMILCAR MICHAEL Tech Service: ? Author Type: Technologist Type: Allied Health Filed: 12/23/2024 14:13 Note Text: Radiology Service Progress Note DATE OF SERVICE: December 23, 2024 TIME: 2:13 PM PATIENT IDENTITY VERIFICATION COMPLETED USING TWO (2) STANDARD IDENTIFIERS: Name and Date of confirmed by patient verbally and Name and Date of confirmed by identification band. FALL SCREENING: Has the patient had 2 falls in the last year or 1 fall with injury or currently using an Ambulatory Assistive Device (Walker, Cane, Wheelchair, Crutches, etc.)? Emergency Room Patient: Screened in ED PATIENT GENDER DATA: Assigned male at PATIENT RELEVANT IMPLANT DATA REVIEWED: Not Applicable PATIENT PRESENTS WITH AN IMPLANTABLE OR ATTACHED SURG PHYSICIAN ASST: No ALLERGIES: Reviewed and unchanged CONTRAST ALLERGY: NO. EXAM: CT -CONTRAST INDUCED NEPHROPATHY RISK FACTORS: Patient age > 60 years CREATININE: Creatinine Date Value Ref Range Status 12/23/2024 0.77 0.73 - 1.22 mg/dL Final Estimated Glomerular Filtration Rate Date Value Ref Range Status 12/23/2024 89 >=60 mL/min/1.73m? Final Comment: Estimated Glomerular Filtration Rate (eGFR) is calculated using the 2020 CKD-EPI creatinine equation. This equation utilizes serum creatinine, sex, and age as parameters. The creatinine assay has traceable calibration to isotope dilution-mass spectrometry. Refer to KDIGO guidelines for clinical interpretation. In patients with unstable renal function, e.g. those with acute kidney injury, the eGFR may not accurately reflect actual GFR. P.O.C.T. RESULTS: POC done: Yes, See Lab Tab December 23, 2024 TREATMENT: N/A PERIPHERAL IV DATA: Inpatient - refer to [facility] documentation RADIOLOGY DEPARTMENT: CT; Exam(s) Completed: Brain , Chest Abdomen Pelvis, and Spine SIGNATURE: Es Mercado PATIENT NAME: Sung Yañez DATE: December 23, 2024 TIME: 2:13 PM Normal [facility] Absolute lymphocyte countOrd ered By: Frankie Yu on 12-23-2024 Lymphocytes Auto (Unsp spec) [#/Vol] 0.93 10*3/uL 0.83-4.51 [facility] Absolute neutrophil countOrd ered By: Frankie Yu on 12-23-2024 Neutrophils (Bld) [#/Vol] 4.0 10*3/uL 2.0-7.7 [facility] Activated partial thrombopla stin time (aPTT) in platelet poor plasma by coagulation aOrdered By: Frankie Yu on 12-23-2024 aPTT Coag (PPP) [Time] 36.2 s 24.1-36.2 [facility] Anion gap in Serum or Plasma Ordered By: Frankie Yu on 12-23-2024 Anion gap [Moles/Vol] 10 mmol/L 5-15 [facility] Automated lymphocyte count a s percentage of total leukocytesOrdered By: Frankie Yu on 12-23-2024 Lymphocytes/100 WBC Auto (Unsp spec) 15.9 % Low 19-41 [facility] BUN/creatinine ratioOrdered By: Frankie Yu on 12-23-2024 Urea nitrogen/Creatinine [Mass ratio] 15.0 mg/mg 10-20 [facility] Basic Metabolic Profile (BMP )on 12-23-2024 BUN/CRE 15.0 RATIO Normal - [facility] Comment on above: Order Comment: DEBI CONTRERAS NOTIFIEDREDRAW Performed By: #### L 500.4100 #### [facility] [address] [place], [address] Calcium [Mass/Vol] 8.8 mg/dL Normal 7.6-11.0 [facility] Comment on above: Order Comment: REDRA W LORILIE NOTIFIEDREDRAW Performed By: #### L 500.2500 #### [facility] [address] [place], [address] Chloride [Moles/Vol] 106 mmol/L Normal 98-108 [facility] Comment on above: Order Comment: REDRA W LORILIE NOTIFIEDREDRAW Performed By: #### L 500.2500 #### [facility] [address] [place], [address] CO2 [Moles/Vol] 22.5 mmol/L Normal 21.0-32.0 [facility] Comment on above: Order Comment: REDRA W LORILIE NOTIFIEDREDRAW Performed By: #### L 500.2500 #### [facility] [address] [place], [address] Creatinine [Mass/Vol] 0.92 mg/dL Normal 0.70-1.20 [facility] Comment on above: Order Comment: REDRA W LORILIE NOTIFIEDREDRAW Performed By: #### L 500.2500 #### [facility] [address] [place], [address] ECRCL 73.99 ml/min Normal 50-250 [facility] Comment on above: Order Comment: REDRA W LORILIE NOTIFIEDREDRAW Performed By: #### L 500.2500 #### [facility] [address] [place], [address] GAP 10 Normal 5-15 [facility] Comment on above: Order Comment: REDRA W LORILIE NOTIFIEDREDRAW Performed By: #### L 500.2500 #### [facility] [address] [place], [address] GFR/1.73 sq M.predicted among non-blacks MDRD (S/P/Bld) [Vol rate/Area] 83 mL/min/{1.73_m2} Normal >60 [facility] Comment on above: Order Comment: REDRA W LORILIE NOTIFIEDREDRAW Result Comment: mL/m in/1.73m2 CKD-EPI Creatinine Equation (2020) Performed By: #### L 500.2500 #### [facility] [address] [place], [address] Glucose [Mass/Vol] 103 mg/dL High 70-99 [facility] Comment on above: Order Comment: REDRA W LORILIE NOTIFIEDREDRAW Performed By: #### L 500.2500 #### [facility] [address] [place], [address] Potassium [Moles/Vol] 4.3 mmol/L Normal 3.3-5.1 [facility] Comment on above: Order Comment: REDRA W LORILIE NOTIFIEDREDRAW Performed By: #### L 500.2500 #### [facility] [address] [place], [address] Sodium [Moles/Vol] 138 mmol/L Normal 133-145 [facility] Comment on above: Order Comment: REDRA W LORILIE NOTIFIEDREDRAW Performed By: #### L 500.2500 #### [facility] [address] [place], [address] Urea nitrogen [Mass/Vol] 14 mg/dL Normal 4-19 [facility] Comment on above: Order Comment: REDRA W LORILIE NOTIFIEDREDRAW Performed By: #### L 500.2500 #### [facility] [address] [place], [address] BUN Normal 4-19 [facility] Comment on above: Result Comment: This specimen has been REJECTED due to Laboratory criteria: Hemolyzed. DIANE has been notified of need of recollection. 12/23/24 Tomas Weir Performed By: #### L 500.2500 #### [facility] [address] [place], [address] BUN/CRE Normal 10-20 [facility] Comment on above: Result Comment: This specimen has been REJECTED due to Laboratory criteria: Hemolyzed. DIANE has been notified of need of recollection. 12/23/24901 Josefa Weir Performed By: #### L 500.2500 #### [facility] [address] [place], [address] Calcium Normal 7.6-11.0 [facility] Comment on above: Result Comment: This specimen has been REJECTED due to Laboratory criteria: Hemolyzed. DIANE has been notified of need of recollection. 12/23/24901 Josefa Weir Performed By: #### L 500.2500 #### [facility] [address] [place], [address] CL Normal 98-108 [facility] Comment on above: Result Comment: This specimen has been REJECTED due to Laboratory criteria: Hemolyzed. DIANE has been notified of need of recollection. 12/23/24901 Josefa Weir Performed By: #### L 500.2500 #### [facility] [address] [place], [address] CO2 Normal 21.0-32.0 [facility] Comment on above: Result Comment: This specimen has been REJECTED due to Laboratory criteria: Hemolyzed. DIANE has been notified of need of recollection. 12/23/24901 Josefa Weir Performed By: #### L 500.2500 #### [facility] [address] [place], [address] CREAT,SERUM Normal 0.70-1.20 [facility] Comment on above: Result Comment: This specimen has been REJECTED due to Laboratory criteria: Hemolyzed. DIANE has been notified of need of recollection. 12/23/24901 Josefa Weir Performed By: #### L 500.2500 #### [facility] [address] [place], [address] eGFR Normal >60 [facility] Comment on above: Result Comment: This specimen has been REJECTED due to Laboratory criteria: Hemolyzed. DIANE has been notified of need of recollection. 12/23/24901 Josefa Weir Performed By: #### L 500.2500 #### [facility] [address] [place], [address] GAP Normal 5-15 [facility] Comment on above: Result Comment: This specimen has been REJECTED due to Laboratory criteria: Hemolyzed. DIANE has been notified of need of recollection. 12/23/24901 Josefa Weir Performed By: #### L 500.2500 #### [facility] [address] [place], [address] GLU Normal 70-99 [facility] Comment on above: Result Comment: This specimen has been REJECTED due to Laboratory criteria: Hemolyzed. DIANE has been notified of need of recollection. 12/23/24901 Josefa Weir Performed By: #### L 500.2500 #### [facility] [address] [place], [address] Potassium Normal 3.3-5.1 [facility] Comment on above: Result Comment: This specimen has been REJECTED due to Laboratory criteria: Hemolyzed. DIANE has been notified of need of recollection. 12/23/24901 Josefa Weir Performed By: #### L 500.2500 #### [facility] [address] [place], [address] Basic Metabolic Profile (BMP) Normal 133-145 [facility] Comment on above: Result Comment: This specimen has been REJECTED due to Laboratory criteria: Hemolyzed. DIANE has been notified of need of recollection. 12/23/24901 Josefa Weir Performed By: #### L 500.2500 #### [facility] [address] [place], [address] Basic metabolic panel with i onized calcium measurementon 12-23-2024 Basic metabolic 2008 panel with ionized calcium [facility] Basophil percentageOrdered B y: Frankie Yu on 12-23-2024 Basophils/100 WBC (Bld) 0.3 % 0-1 [facility] Bedside Glucoseon 12-23-2024 FINGERSTICK GLU 94 mg/dL Normal 74-106 [facility] Comment on above: Result Comment: RAY CUMMINGS OF PATIENT CARE PER NURSING PROTOCOL Performed By: #### L 501.080 #### [facility] [address] [place], [address] CBC W Auto Differential pane l (Bld)on 12-23-2024 Basophils (Bld) [#/Vol] 0.03 10*3/uL Normal <0.11 [facility] Comment on above: Order Comment: Speci men Type: BLOOD SPECIMENOrdering Facility: [facility] Address: [address] [place] [address] Performed By: #### 5 7021-8 ####[facility] [id number] [place] [address] [place] Basophils/100 WBC (Bld) 0.5 % Normal [facility] Comment on above: Order Comment: Speci men Type: BLOOD SPECIMENOrdering Facility: [facility] Address: [address] [place] [address] Performed By: #### 5 7021-8 ####[facility]ORYCLIA [id number] [place] [address] [place] Differential cell count method Nom (Bld) Auto Normal [facility] Comment on above: Order Comment: Speci men Type: BLOOD SPECIMENOrdering Facility: [facility] Address: [address] [place] [address] Performed By: #### 5 7021-8 ####[facility]ORYCLIA [id number] [place] [address] [place] Eosinophils (Bld) [#/Vol] 0.15 10*3/uL Normal <0.46 [facility] Comment on above: Order Comment: Speci men Type: BLOOD SPECIMENOrdering Facility: [facility] Address: [address] [place] [address] Performed By: #### 5 7021-8 ####[facility]ORYCLIA [id number] [address] [place] Eosinophils/100 WBC (Bld) 2.3 % Normal [facility] Comment on above: Order Comment: Speci men Type: BLOOD SPECIMENOrdering Facility: [facility] Address: [address] [place] [address] Performed By: #### 5 7021-8 ####[facility] [id number] [address] [place] Erythrocyte distribution width (RBC) [Ratio] 13.3 % Normal 11.5-15.0 [facility] Comment on above: Order Comment: Speci men Type: BLOOD SPECIMENOrdering Facility: [facility] Address: [address] [place] [address] Performed By: #### 5 7021-8 ####[facility] [id number] [address] [place] Hematocrit (Bld) [Volume fraction] 45.4 % Normal 39.0-51.0 [facility] Comment on above: Order Comment: Speci men Type: BLOOD SPECIMENOrdering Facility: [facility] Address: [address] [place] [address] Performed By: #### 5 7021-8 ####[facility]ORYCL[facility] [id number] [address] [place] Hemoglobin (Bld) [Mass/Vol] 14.5 g/dL Normal 13.0-17.0 [facility] Comment on above: Order Comment: Speci men Type: BLOOD SPECIMENOrdering Facility: [facility] Address: [address] [place] [address] Performed By: #### 5 7021-8 ####[facility]ORYCLIA [id number] [address] [place] Immature granulocytes (Bld) [#/Vol] 10*3/uL Normal <0.10 [facility] Comment on above: Order Comment: Speci men Type: BLOOD SPECIMENOrdering Facility: [facility] Address: [address] [place] [address] Performed By: #### 5 7021-8 ####[facility]ORYCLIA [id number] [address] STATES [facility] Immature granulocytes/100 WBC (Bld) 0.3 % Normal [facility] Comment on above: Order Comment: Speci men Type: BLOOD SPECIMENOrdering Facility: [facility] Address: [address] [place] [address] Performed By: #### 5 7021-8 ####[facility]ORYCLIA [id number] [address] [place] [facility] Lymphocytes (Bld) [#/Vol] 1.07 10*3/uL Normal 1.00-4.00 [facility] Comment on above: Order Comment: Speci men Type: BLOOD SPECIMENOrdering Facility: [facility] Address: [address] [place] [address] Performed By: #### 5 7021-8 ####[facility]ORYCLIA [id number] [address] Lymphocytes/100 WBC (Bld) 16.2 % Normal [facility] Comment on above: Order Comment: Speci men Type: BLOOD SPECIMENOrdering Facility: [facility] Address: [address] [place] [address] Performed By: #### 5 7021-8 ####[facility]ORYCLIA [id number] [address] [place] [facility] MCH (RBC) [Entitic mass] 30.3 pg Normal 26.0-34.0 [facility] Comment on above: Order Comment: Speci men Type: BLOOD SPECIMENOrdering Facility: [facility] Address: [address] [place] [address] Performed By: #### 5 7021-8 ####[facility]ORYCLIA [id number] [place] [address] [place] MCHC (RBC) [Mass/Vol] 31.9 g/dL Normal 30.5-36.0 [facility] Comment on above: Order Comment: Speci men Type: BLOOD SPECIMENOrdering Facility: [facility] Address: [address] [place] [address] Performed By: #### 5 7021-8 ####[facility]ORYCLIA [id number] [address] [place] MCV (RBC) [Entitic vol] 95.0 fL Normal 80.0-100.0 [facility] Comment on above: Order Comment: Speci men Type: BLOOD SPECIMENOrdering Facility: [facility] Address: [address] [place] [address] Performed By: #### 5 7021-8 ####[facility]ORYCLIA [id number] [address] [place] Monocytes (Bld) [#/Vol] 0.70 10*3/uL Normal <0.87 [facility] Comment on above: Order Comment: Speci men Type: BLOOD SPECIMENOrdering Facility: [facility] Address: [address] [place] [address] Performed By: #### 5 7021-8 ####[facility]ORYCLIA [id number] [address] Monocytes/100 WBC (Bld) 10.6 % Normal [facility] Comment on above: Order Comment: Speci men Type: BLOOD SPECIMENOrdering Facility: [facility] Address: [address] [place] [address] Performed By: #### 5 7021-8 ####[facility]ORYCLIA [id number] [place] [address] [place] Neutrophils (Bld) [#/Vol] 4.65 10*3/uL Normal 1.45-7.50 [facility] Comment on above: Order Comment: Speci men Type: BLOOD SPECIMENOrdering Facility: [facility] Address: [address] [place] [address] Performed By: #### 5 7021-8 ####[facility]ORYCLIA [id number] [address] Neutrophils/100 WBC (Bld) 70.1 % Normal [facility] Comment on above: Order Comment: Speci men Type: BLOOD SPECIMENOrdering Facility: [facility] Address: [address] [place] [address] Performed By: #### 5 7021-8 ####[facility]ORYCLIA [id number] [address] Nucleated RBC (Bld) [#/Vol] 10*3/uL Normal <0.01 [facility] Comment on above: Order Comment: Speci men Type: BLOOD SPECIMENOrdering Facility: [facility] Address: [address] [place] [address] Performed By: #### 5 7021-8 ####[facility]ORYCLIA [id number] [address] Nucleated RBC/100 WBC (Bld) [Ratio] 0.0 /100 WBC Normal [facility] Comment on above: Order Comment: Speci men Type: BLOOD SPECIMENOrdering Facility: [facility] Address: [address] [place] [address] Performed By: #### 5 7021-8 ####[facility]ORYCLIA [id number] [address] [place] Platelet mean volume (Bld) [Entitic vol] 12.1 fL Normal 9.0-12.7 [facility] Comment on above: Order Comment: Speci men Type: BLOOD SPECIMENOrdering Facility: [facility] Address: [address] [place] [address] Performed By: #### 5 7021-8 ####[facility]ORYCLIA [id number] [address] Platelets (Bld) [#/Vol] 203 10*3/uL Normal 150-400 [facility] Comment on above: Order Comment: Speci men Type: BLOOD SPECIMENOrdering Facility: [facility] Address: [address] [place], [place] [address] [address] Performed By: #### 5 7021-8 ####[facility]ATORYCLIA [id number] [place] [address] [place] RBC (Bld) [#/Vol] 4.78 10*6/uL Normal 4.20-6.00 [facility] Comment on above: Order Comment: Speci men Type: BLOOD SPECIMENOrdering Facility: [facility] Address: [address] [place], [place] [address] [id number] Performed By: #### 5 7021-8 ####[facility]ATORYCLIA [id number] [place] [address] [place] WBC (Bld) [#/Vol] 6.62 10*3/uL Normal 3.70-11.00 [facility] Comment on above: Order Comment: Speci men Type: BLOOD SPECIMENOrdering Facility: [facility] Address: [address] [place] [address] Performed By: #### 5 7021-8 ####[facility]ORYCLIA [id number] [place] [address] [place] CBC W/Diff, Automatedon 06-3 0-2025 Absolute Lymph 0.93 X10 3/uL Normal 0.83-4.51 [facility] Comment on above: Performed By: #### L 500.2500 #### [facility] [address] [place], [address] Absolute Neut 4.0 X10 3/uL Normal 2.0-7.7 [facility] Comment on above: Performed By: #### L 500.2500 #### [facility] [address] [place], [address] Basophils/100 WBC (Bld) 0.3 % Normal 0-1 [facility] Comment on above: Performed By: #### L 500.2500 #### [facility] [address] [place], [address] Eosinophils/100 WBC (Bld) 2.4 % Normal 0-5 [facility] Comment on above: Performed By: #### L 500.2500 #### [facility] [address] [place], [address] Erythrocyte distribution width (RBC) [Ratio] 13.8 % Normal 11.6-14.6 [facility] Comment on above: Performed By: #### L 500.2500 #### [facility] [address] [place], [address] Hematocrit (Bld) [Volume fraction] 40.9 % Normal 40-54 [facility] Comment on above: Performed By: #### L 500.2500 #### [facility] [address] [place], [address] Hemoglobin (Bld) [Mass/Vol] 13.6 g/dL Normal 13.0-16.5 [facility] Comment on above: Performed By: #### L 500.2500 #### [facility] [address] [place], [address] IG% 0.300 Normal 0.0-0.9 [facility] Comment on above: Result Comment: IG% - Immature Granulocytes (promyelocytes, myelocytes and metamyelocytes) > 1% indicates that a LEFT SHIFT is Present. Performed By: #### L 500.2500 #### [facility] [address] [place], [address] Lymphocytes/100 WBC (Bld) 15.9 % Low 19-41 [facility] Comment on above: Performed By: #### L 500.2500 #### [facility] [address] [place], [address] MCH (RBC) [Entitic mass] 30.8 pg Normal 27.0-32.0 [facility] Comment on above: Performed By: #### L 500.2500 #### [facility] [address] [place], [address] MCHC (RBC) [Mass/Vol] 33.3 g/dL Normal 32-36 [facility] Comment on above: Performed By: #### L 500.2500 #### [facility] [address] [place], [address] MCV (RBC) [Entitic vol] 92.5 fL Normal 80-94 [facility] Comment on above: Performed By: #### L 500.2500 #### [facility] [address] [place], [address] Monocytes/100 WBC (Bld) 12.8 % High 0-10 [facility] Comment on above: Performed By: #### L 500.2500 #### [facility] [address] [place], [address] Neutrophils/100 WBC (Bld) 68.3 % Normal 47-70 [facility] Comment on above: Performed By: #### L 500.2500 #### [facility] [address] [place], [address] Nucleated RBC (Bld) [#/Vol] 0 10*3/uL Normal 0-5 [facility] Comment on above: Performed By: #### L 500.2500 #### [facility] [address] [place], [address] Platelet mean volume (Bld) [Entitic vol] 11.5 fL Normal 6.2-12.0 [facility] Comment on above: Performed By: #### L 500.2500 #### [facility] [address] [place], [address] Platelets (Bld) [#/Vol] 186 10*3/uL Normal 150-450 [facility] Comment on above: Performed By: #### L 500.2500 #### [facility] [address] [place], [address] RBC (Bld) [#/Vol] 4.42 10*6/uL Low 4.6-6.2 [facility] Comment on above: Performed By: #### L 500.2500 #### [facility] [address] [place], [place], [address] RDW SD 47.2 fl High 35.1-43.9 [facility] Comment on above: Performed By: #### L 500.2500 #### [facility] [address] [place], [place], [address] WBC (Bld) [#/Vol] 5.8 10*3/uL Normal 4.4-11.0 [facility] Comment on above: Performed By: #### L 500.2500 #### [facility] [address] [place], [place], [address] CONSULTon 12-23-2024 CONSULT HNO ID: [id number] Author: PARISH ALBRIGHT MD Service: General Surgery Author Type: Physician Type: Consults Filed: 12/23/2024 22:47 Note Text: Surgical Intensive Care Unit Consult Note SERVICE DATE: 12/23/2024 SERVICE TIME: 4:05 PM REASON FOR CONSULT: SAH/SDH REQUESTING PHYSICIAN: MD Tien Subjective 84 year old male with a PMH of A fib (on Xarelto), CHRISTOPHER, HTN, Melanoma, LLE neuropathy, and chronic low back pain. He is a transfer from [place] [facility]. History was obtained via ED staff, chart review, and patient/family interview. Patient reportedly had a ground level mechanical fall onto concrete three days ago on 12/20. Per patient, he did hit his head, but he did not pass out. He is on Xarelto daily, and he has continued taking it everyday since his fall. He did not seek medical attention until this morning when he woke up at 2 AM with a severe headache and new onset LLE weakness. He denied any current CP, Shortness of Breath, N/V, ABD pain, fevers, chills, or cough. At [place] [facility], he had a CT scan of the brain completed as well as a CTA H/N which were remarkable for acute SDH along the right tentorium and falx. There was also a 2 cm by 5 cm collection adjacent to his falx bleed. He was given KCentra and Keppra at the facility prior to transfer. He also received a Cardene drip en route to [facility]. On exam, patient is alert and oriented x 4. He is accompanied by his and son. He follows all commands and answers questions appropriately. We had a code status discussion as well, and he would like to remain a full code at this time. Injuries listed below: Acute right parafalcine subdural hemorrhage measuring up to 19 mm in thickness Subdural hemorrhage along the right cerebral convexity measuring 6 mm Acute subdural hemorrhage along right cerebral tentorium measuring up to 11 mm in thickness Probable small volume subarachnoid hemorrhage within right cerebral hemisphere at the vertex Mass effect on right cerebral convexity, with approximately 4 mm midline shift to the left FUNCTIONAL STATUS: Independent PAST MEDICAL HISTORY Diagnosis Date BPH (benign prostatic hyperplasia) Diverticulosis of colon (without mention of hemorrhage) H/O degenerative disc disease Melanoma (HCC) Unspecified essential hypertension PAST SURGICAL HISTORY Procedure Laterality Date COLONOSCOP W/ OR W/O [facility] SPEC 09/17/03 Colonoscopy COLONOSCOP W/ OR W/O [facility] SPEC 06/02/2010 Colonoscopy PAST SURGICAL HISTORY OF 05/04 prostate surgery REMOVAL OF TONSILS,<14 Y/O 18 months old Tonsillectomy FAMILY HISTORY Problem Relation Age of Onset Colon Cancer Father Social History Tobacco Use Smoking status: Never Substance Use Topics Alcohol use: Yes Comment: ocass lisinopril (ZESTRIL) 20 mg tablet, Take 20 mg by mouth once daily., Disp: , Rfl: metoprolol tartrate, short acting, (LOPRESSOR) 50 mg tablet, Take 50 mg by mouth once daily., Disp: , Rfl: rivaroxaban (XARELTO) 20 mg tablet, Take 20 mg by mouth daily with dinner., Disp: , Rfl: bisoprolol-hydrochlo rothiazide (ZIAC) 5-6.25 mg ORAL per tablet, Take one(1) tablet daily. (Patient not taking: Reported on 12/23/2024), Disp: , Rfl: 0, Not Taking Pyridoxine HCl (VITAMIN B-6) 200 mg ORAL tablet, Take one(1) tablet daily. (Patient not taking: Reported on 12/23/2024), Disp: , Rfl: 0, Not Taking multivitamin (DAILY MULTI-VITAMIN) ORAL tablet, Take one(1) tablet daily. (Patient not taking: Reported on 12/23/2024), Disp: , Rfl: 0, Not Taking aspirin, enteric coated (ECOTRIN LOW STRENGTH) 81 mg ORAL EC tablet, Take one(1) tablet daily. (Patient not taking: Reported on 12/23/2024), Disp: , Rfl: 0, Not Taking Current Facility-Administere d Medications Medication Dose Route Frequency NaCl 0.9% iv flush bag 20 mL INTRAVENOUS PRN potassium chloride ER 20-40 mEq tab(s) (KLOR-CON) 20-40 mEq ORAL/FEEDING TUBE PRN Or potassium chloride iv piggyback 20 mEq/100 mL 20 mEq INTRAVENOUS PRN magnesium sulfate iv piggyback in sterile water 2 g 50 mL 2 g INTRAVENOUS PRN phosphorus 500 mg tab(s) (K PHOS NEUTRAL) 500 mg ORAL/FEEDING TUBE PRN(NO DISPENSE) calcium gluconate iv piggyback 2 g in NaCl (iso-osmotic) 100 mL 2 g INTRAVENOUS PRN(NO DISPENSE) ondansetron 4 mg tab(s) (ZOFRAN) 4 mg ORAL q 6 H PRN Or ondansetron (PF) 4 mg injection (ZOFRAN) 4 mg INTRAVENOUS q 6 H PRN acetaminophen 975 mg tab(s) (TYLENOL) 975 mg ORAL q 6 H oxyCODONE IR 2.5-5 mg tab(s) (ROXICODONE) 2.5-5 mg ORAL q 4 H PRN senna-docusate 8.6-50 mg 1 tablet (SENNA-S) 1 tablet ORAL BID levETIRAcetam 1,000 mg tab(s) (KEPPRA) 1,000 mg ORAL BID iv contrast (radiology procedure) INTRAVENOUS DIRECTED PRN iv contrast (radiology procedure) INTRAVENOUS DIRECTED PRN iv contrast (radiology procedure) INTRAVENOUS DIRECTED PRN Allergies As of Date: 12/23/2024 (No Known Allergies) Fully Assessed 12/23/2024 COMPLETE REVIEW OF SYSTEMS: GENERAL: No weight loss, malaise (more content not included)... [facility] CONSULT HNO ID: [id number] Author: SHAHID COPPOLA MD Service: Neurosurgery Author Type: Nurse Practitioner Type: Consults Filed: 12/23/2024 15:30 Note Text: Attestation signed by Shahid Coppola MD at 12/23/2024 3:30 PM Attending Note I reviewed pertinent patient history and examination performed by PA/ETL LEAD, relevant laboratory results and imaging studies. Unless indicated below I agree with the plan of care discussed. 84M on Xarelto s/p fall 3 days prior with worsening left leg strength CT brain - large right falcine aSDH with mass effect and subacute/small acute convexity SDH - Kcentra given - repeat CT brain - given parafalcine location, would favor conservative management as surgical evacuation is significant risk - consider IR consult for rt subacute/chronic convexity SDH - will follow Shahid Coppola MD CONSULT: NEUROSURGERY SERVICE Patient Name: Sung Yañez Date of : 1940 SERVICE DATE: 12/23/2024 SERVICE TIME: 12:06 PM REASON FOR CONSULT: subdural hematoma REQUESTING PHYSICIAN: Lesa Garcia MD PRIMARY CARE PHYSICIAN: Briseida Vergara MD CHIEF COMPLAINT: Fall with headache and new left leg weakness HISTORY OF PRESENT ILLNESS : Mr. Yañez is a 84 year old male with hx of afib on Zarelto and HTN who presents from OSH after a fall. Patient reports walking out to his garage take his tractor out, in the rain and that the walk was slippery and he fell hitting his back and head. Patient denies LOC. Spouse and son is at bedside and report patient given reversal for Zarelto. Patient endorses new left leg weakness, new from Monday. Patient denies headache currently, dizziness or visual changes. PAST MEDICAL HISTORY Diagnosis Date BPH (benign prostatic hyperplasia) Diverticulosis of colon (without mention of hemorrhage) H/O degenerative disc disease Melanoma (HCC) Unspecified essential hypertension PAST SURGICAL HISTORY Procedure Laterality Date COLONOSCOP W/ OR W/O [facility] SPEC 09/17/03 Colonoscopy COLONOSCOP W/ OR W/O [facility] SPEC 06/02/2010 Colonoscopy PAST SURGICAL HISTORY OF 05/04 prostate surgery REMOVAL OF TONSILS,<12 Y/O 18 months old Tonsillectomy FAMILY HISTORY Problem Relation Age of Onset Colon Cancer Father ALLERGIES No Known Allergies Current Facility-Administere d Medications Medication Dose Route Frequency Provider Last Rate Last Admin iv contrast (radiology procedure) INTRAVENOUS DIRECTED PRN Paulo Xiong, PEDRO.TEXTILE ENGINEER Current Outpatient Medications Medication Sig Dispense Refill bisoprolol-hydrochlo rothiazide (ZIAC) 5-6.25 mg ORAL per tablet Take one(1) tablet daily. 0 Pyridoxine HCl (VITAMIN B-6) 200 mg ORAL tablet Take one(1) tablet daily. 0 multivitamin (DAILY MULTI-VITAMIN) ORAL tablet Take one(1) tablet daily. 0 aspirin, enteric coated (ECOTRIN LOW STRENGTH) 81 mg ORAL EC tablet Take one(1) tablet daily. 0 COMPLETE REVIEW OF SYSTEMS - 10 Systems were reviewed and otherwise Noncontributory but that in the HPI PAIN ASSESSMENT: see HPI NEURO: see HPI MEDS: Current Facility-Administere d Medications Medication Dose Route Frequency iv contrast (radiology procedure) INTRAVENOUS DIRECTED PRN OBJECTIVE: BP 112/79 Pulse 77 Temp (Src) 97.7 (Oral) Resp 14 SpO2 96% Recent Labs 12/23/24 1040 NA 138 K 4.2 CHLOR 105 CO2 19* BUN 12 CREAT 0.77 GLUC 110* ANION 14 CA 8.5 ALB 3.6* AST 18 ALT 10 ALKPHOS 88 TBILI 1.0 WBC 6.62 HB 14.5 HCT 45.4 PLT 203 INR 1.2 PHYSICAL EXAM: GENERAL: awake and alert; cooperative; pleasant; NAD HEENT: normocephalic; atraumatic LUNGS: Unlabored breathing NECK/BACK: ROM appropriate; no TTP CARDIAC: rate and rhythm as above ABDOMEN: Soft, non-tender, non-distended EXTREMITIES: HELMS, No deformities, No edema SKIN: Skin color normal; texture, turgor, temperature normal; No rashes or lesions NEUROLOGICAL: Mental Status: AANDOx3; follows commands easily Speech: clear and fluent; no aphasia Cranial Nerves: CNII: Visual acuity normal, Visual bustillo full to confrontation CNIII, IV, : Pupils equal, round and reactive to light, full extraoccular movements without nystagmus, no ptosis CN V: Facial sensation intact bilaterally to fine touch CN VII: Facial muscles symmetric and strong, no drool, moist buccal mucosa CN VIII: Hearing intact to voice CN IX: Gag Reflex Not Examined CN X: Cough intact CN XI: Full strength shoulder shrug bilaterally CN XII: Tongue protrusion full and midline Motor/Myotomes: (0-5/5) Upper Extremities Right Left Lower Extremities Right Left Deltoid (C5) 5 5 Psoas (L2) 5 4 Bicep (C6) 5 5 Quadricep (L3) 5 4 Tricep (C7) 5 5 Anterior Tibialis (L4) 5 3 Manager Of Construction (C8/T1) 5 5 Gastroc/Soleus (S1) 5 3 Interossei (T (more content not included)... [facility] CT ABD/PEL W IVCONon 12-23-[address] ABD/PEL W IVCON * * *Final Report* * * DATE OF EXAM: Dec 23 2024 2:20PM [facility] ABD/PEL W IVCON / PROCEDURE REASON: Abdominal trauma, blunt * * * * Physician Interpretation * * * * EXAMINATION: CT ABDOMEN AND PELVIS WITH IV CONTRAST CLINICAL HISTORY: Abdominal trauma. TECHNIQUE: CT of the abdomen and pelvis was performed using standard technique, scanning from just above the dome of the diaphragm to the symphysis pubis. MQ: CTAP_3 Contrast: IV: 100 ml of Omnipaque 350 CT Radiation dose: Integrated Dose-length product (DLP) for this visit = 2846 mGy*cm. CT Dose Reduction Employed: Automated exposure control(AEC) and iterative recon COMPARISON: None. RESULT: Liver: Subcentimeter hypodensities are small to characterize but favored to be benign. Biliary: No bile duct dilation. Cholelithiasis. Spleen: No mass. No splenomegaly. Pancreas: No mass or duct dilation. Adrenals: No mass. Kidneys: Benign renal cysts. Retained contrast in the bilateral renal collecting systems. No hydronephrosis. GI tract: Tiny hiatal hernia. No dilated bowel. Colonic diverticulosis. Normal appendix. Lymph nodes: No abdominal or pelvic lymphadenopathy. Mesentery/Peritoneum : No ascites or mass. Retroperitoneum: No mass. Vasculature: - Abdominal aorta and iliac arteries: Atherosclerotic calcifications without aneurysm. - Celiac and SMA: Patent without stenosis. - Portal venous system (SMV, splenic vein, portal vein and branches): Patent. - Hepatic veins: Patent. Pelvis: Fowler catheter terminates in the bladder with contrast in the bladder. Trace amount of sacral edema. No mass. Bones/Soft Tissues: Osteopenia. Degenerative change. Lower thorax: A chest CT performed will be reported separately. Localizer images: No additional findings. IMPRESSION: No acute findings in the abdomen or pelvis. Hypoid Gear Tester: PONCE Transcribe Date/Time: Dec 23 2024 3:32P Dictated by : ENRIQUE ANDRADE MD This examination was interpreted and the report reviewed and electronically signed by: ENRIQUE ANDRADE MD on Dec 23 2024 3:37PM EST [id number] CN [facility] CT BRAIN WO IVCONon 12-24-[address] BRAIN WO IVCON * * *Final Report* * * DATE OF EXAM: Dec 23 2024 6:30PM [facility] - CT BRAIN WO IVCON / PROCEDURE REASON: sdh * * * * Physician Interpretation * * * * EXAMINATION: CT BRAIN WO IVCON CLINICAL HISTORY: sdh Technique: -- Axial noncontrast CT images of the brain. Coronal reformats.. Exam Date: 12/23/2024 6:30 PM Comparison: CT brain done earlier today at 1412 hours Contrast: ml of CT Radiation dose: Integrated Dose-length product (DLP) for this visit = 812 mGy*cm CT Dose Reduction Employed: Iterative recon RESULT: There is a large subdural hematoma along the right side of the falx. This extends inferiorly along the bilateral tentorial leaves. This measures up to 22 mm in thickness and is similar or slightly increased compared to prior. The amount of subdural hemorrhage along the left tentorial leaflet as increased compared to prior now measuring up to 3 mm in thickness. This has some localized mass effect upon the adjacent brain parenchyma. There is also a mild amount of adjacent subarachnoid hemorrhage along the right frontal and parietal lobes. There is a mixed density extra-axial fluid collection along the right frontal lobe and right temporal lobe. This measures up to 6 mm in thickness and appears fairly similar compared to recent prior. There is minimal right to left midline shift of approximately 4 mm.. No evidence of hydrocephalus. No depressed calvarial fracture IMPRESSION: 1. Large subdural hematoma along the right side of the falx which is most prominent along the posterior falx and extending towards and including the bilateral tentorial leaflets. Overall thickness of hemorrhage along the falx appears to be mildly increased. There is also mild increase along the tentorial leaflets. This hemorrhage creates localized mass effect. There is minimal 4 mm right to left midline shift which is similar or slightly increased compared to prior. 2. Low density subdural fluid collection along the right frontal lobe and right temporal lobe is similar or slightly increased compared to prior. Minimal localized mass effect. Hypoid Gear Tester: PONCE Transcribe Date/Time: Dec 23 2024 7:39P Dictated by : LISBETH SORTO MD This examination was interpreted and the report reviewed and electronically signed by: LISBETH SORTO MD on Dec 23 2024 7:51PM EST [id number] CN [facility] CT BRAIN WO IVCON * * *Final Report* * * DATE OF EXAM: Dec 23 2024 2:20PM [facility] CT BRAIN WO IVCON / PROCEDURE REASON: sdh follow up * * * * Physician Interpretation * * * * EXAMINATION: CT BRAIN WO IVCON CLINICAL HISTORY: Subdural hemorrhage follow-up. TECHNIQUE: Serial axial images without IV contrast were obtained from the vertex to the foramen magnum. MQ: CTBWO_3 CT Radiation dose: Integrated Dose-Length Product (DLP) for this visit = 2846 mGy*cm CT Dose Reduction Employed: Automated exposure control(AEC) and iterative recon COMPARISON: Outside hospital CT head on 12/23/2024. RESULT: Acute change: No CT evidence of large acute cortical infarct. Hemorrhage: No appreciable change in acute subdural hemorrhage along the right cerebral tentorium measuring up to 11 mm in thickness. Slightly increased size of extensive acute right parafalcine subdural hemorrhage measuring up to 19 mm in thickness. Slightly increased subdural hemorrhage along the right cerebral convexity measuring 6 mm (previously 4 mm.) Probable small volume subarachnoid hemorrhage within right cerebral hemisphere at the vertex. No convincing evidence of acute parenchymal hemorrhage at this time. Mass Lesion / Mass Effect: Mass effect on the right cerebral convexity, with approximately 4 mm midline shift to the left. This is relatively unchanged since examination earlier today. Chronic change: Patchy foci of low attenuation are present within the supratentorial white matter, a nonspecific finding that most commonly represents moderate small vessel disease. Parenchyma: There is mild generalized volume loss. Ventricles: No significant ventricular dilatation at this time. Paranasal sinuses and skull base: Air-fluid levels within the left sphenoid sinus. No significant mastoid fluid. No evidence of depressed calvarial fractures. IMPRESSION: 1. Slightly increased size of extensive acute right parafalcine subdural hemorrhage measuring up to 19 mm in thickness. Slightly increased subdural hemorrhage along the right cerebral convexity measuring 6 mm (previously 4 mm.). Continued short-term follow-up is recommended. 2. No appreciable change in acute subdural hemorrhage along right cerebral tentorium measuring up to 11 mm in thickness. 3. Probable small volume subarachnoid hemorrhage within right cerebral hemisphere at the vertex. 4. Mass effect on right cerebral convexity, with approximately 4 mm midline shift to the left. This is relatively unchanged since examination earlier today. Hypoid Gear Tester: PSCB Transcribe Date/Time: Dec 23 2024 2:49P Dictated by : IVORY MARTINEZ MD This examination was interpreted and the report reviewed and electronically signed by: IVORY MARTINEZ MD on Dec 23 2024 2:56PM EST [id number] CN [facility] CT CERVICAL SPINE WO IVCONon 12-23-2024 CT CERVICAL SPINE WO IVCON * * *Final Report* * * DATE OF EXAM: Dec 23 2024 2:20PM [facility] CT CERVICAL SPINE WO IVCON / PROCEDURE REASON: Spine fracture, cervical, traumatic * * * * Physician Interpretation * * * * EXAMINATION: CT CERVICAL SPINE WO IVCON CLINICAL HISTORY: Spine fracture, cervical, traumatic , neck pain after fall. TECHNIQUE: Spiral, high resolution axial unenhanced images were obtained from the skull base to the cervicothoracic junction with sagittal and coronal planar reconstructions. MQ: CTCSPWO_5 CT Radiation dose: Integrated CT Dose-Length Product (DLP) for this visit = 2846 mGy*cm CT Dose Reduction Employed: Automated exposure control(AEC) and iterative recon COMPARISON: None. RESULT: Counting reference: Craniocervical junction. Anatomic Variants: None. Alignment: Minimal grade 1 retrolisthesis of C2 on C3. Minimal grade 1 anterolisthesis of C5 on C6. This is most likely secondary to degenerative process. Osseous structures/fracture: Severe diffuse osteopenia limits evaluation for nondisplaced fractures. The vertebral body heights are within normal limits. Degenerative changes: Multilevel degenerative changes of the cervical spine. IMPRESSION: 1. No CT evidence of acute osseous abnormalities involving cervical spine. 2. Severe diffuse osteopenia. Multilevel degenerative changes. Anatomic Variant: None. Assume 7 cervical vertebrae with counting from the craniocervical junction. Hypoid Gear Tester: PONCE Transcribe Date/Time: Dec 23 2024 3:02P Dictated by : IVORY MARTINEZ MD This examination was interpreted and the report reviewed and electronically signed by: IVORY MARTINEZ MD on Dec 23 2024 3:27PM EST [id number] CN [facility] CT CHEST W IVCONon 5 CT CHEST W IVCON * * *Final Report* * * DATE OF EXAM: Dec 23 2024 2:20PM [facility] CT CHEST W IVCON / PROCEDURE REASON: Chest trauma, blunt * * * * Physician Interpretation * * * * EXAMINATION: CHEST CT WITH CONTRAST CLINICAL HISTORY: Chest trauma. Technique: Spiral CT acquisition of the chest from the thoracic inlet to the upper abdomen following IV contrast. MQ: CTCW_6 Contrast: 100 mL Omnipaque [address] Radiation dose: Integrated Dose-length product (DLP) for this visit = 2846 mGy*cm CT Dose Reduction Employed: Automated exposure control(AEC) and iterative recon Comparison: None RESULT: Limitations: None. Lines, tubes, and devices: None. Lung parenchyma and airways: No focal consolidation. Atelectasis and/or scarring at the lung bases and left lingula. Biapical pleural parenchymal scarring. Mild apical predominant paraseptal emphysema. Scattered pulmonary cysts. Multiple bilateral very nodules measuring up to 0.8 cm, for example * 0.5 cm subpleural left upper lobe nodule (4:68) * 0.8 cm right middle lobe nodule (4:94) * 0.6 cm right middle lobe nodule (4:95) * 0.4 cm right upper lobe nodule (4:93) * 0.4 cm right middle lobe nodule (4:98) * 0.6 m right lower lobe nodule (4:126) The central airways are patent. Pleural space: No pleural effusion. No pleural thickening. Lower neck, lymph nodes, and mediastinum: 1.4 center right thyroid nodule. No lymphadenopathy. Heart, pericardium, and thoracic vessels: Mildly dilated ascending thoracic aorta measuring 4.2 cm with atherosclerosis. The main pulmonary artery is dilated measuring 3.8 cm. Mild cardiomegaly. Mild coronary artery calcifications. Bones and soft tissues: Degenerative changes. Osseous demineralization. Upper abdomen: Please see separate dictated CT abdomen and pelvis Localizer images: No additional findings. IMPRESSION: No CT evidence of acute abnormality. Multiple bilateral pulmonary nodules measuring up to 0.8 cm. Follow-up per guidelines below. Incidental Finding: Follow-up Acuity: Incidental Finding: Solid: 6-8 mm (solitary nodule) Routing Code: RI_1 Recommendation: CT Chest WO IVCON Time Frame: 6-12 months Comments: If stable on follow-up imaging, a repeat chest CT exam in 12 months (18-24 months from the initial exam) is recommended --END OF FINDING-- Hypoid Gear Tester: PONCE Transcribe Date/Time: Dec 23 2024 3:37P Dictated by : ENRIQUE ANDRADE MD This examination was interpreted and the report reviewed and electronically signed by: ENRIQUE ANDRADE MD on Dec 23 2024 3:44PM EST [id number] ACTIONABLE Invalid Interpretation Code [facility] Carbon dioxide, total [Moles /volume] in Central venous bloodOrdered By: Frankie Yu on 12-23-2024 CO2 [Moles/Vol] 22.5 mmol/L 21.0-32.0 [facility] Chloride assayOrdered By: Tmaara Yu on 12-23-2024 Chloride [Moles/Vol] 106 mmol/L 98-108 [facility] Comprehensive metabolic 2000 panelon 12-23-2024 Albumin [Mass/Vol] 3.6 g/dL Low 3.9-4.9 [facility] Comment on above: Order Comment: Speci men Type: BLOOD SPECIMENOrdering Facility: [facility] Address: [address] [place] [address] Performed By: #### 3 -3, 09997-2 ####[facility]ORATORYCLIA [id number] [address] STATES OF [facility] ALP [Catalytic activity/Vol] 88 U/L Normal 38-113 [facility] Comment on above: Order Comment: Speci men Type: BLOOD SPECIMENOrdering Facility: [facility] Address: [address] [place] [address] Performed By: #### 3 -3, ####[facility] LABORATORYCLIA [id number] [address] STATES OF [facility] ALT With P-5'-P [Catalytic activity/Vol] 10 U/L Normal 10-54 [facility] Comment on above: Order Comment: Speci men Type: BLOOD SPECIMENOrdering Facility: [facility] Address: [address] [place] [address] Performed By: #### 3 -3, 44119-8 ####[facility] LABORATORYCLIA [id number] [address] STATES OF [facility] Anion gap [Moles/Vol] 14 mmol/L Normal 8-15 [facility] Comment on above: Order Comment: Speci men Type: BLOOD SPECIMENOrdering Facility: [facility] Address: [address] [place] [address] Performed By: #### 3 -3, 79081-0 ####[facility]ORYCLIA [id number] [address] [place] AST With P-5'-P [Catalytic activity/Vol] 18 U/L Normal 14-40 [facility] Comment on above: Order Comment: Speci men Type: BLOOD SPECIMENOrdering Facility: [facility] Address: [address] [place] [address] Performed By: #### 3 040-3, 92534-9 ####[facility]ATORYCLIA [id number] [place] [address] [place] Bilirubin [Mass/Vol] 1.0 mg/dL Normal 0.2-1.3 [facility] Comment on above: Order Comment: Speci men Type: BLOOD SPECIMENOrdering Facility: [facility] Address: [address] [place] [address] Performed By: #### 3 040-3, ####[facility]ORATORYCLIA [id number] [place] [address] [place] Calcium [Mass/Vol] 8.5 mg/dL Normal 8.5-10.2 [facility] Comment on above: Order Comment: Speci men Type: BLOOD SPECIMENOrdering Facility: [facility] Address: [address] [place] [address] Performed By: #### 3 040-3, ####[facility]ORATORYCLIA [id number] [place] [address] [place] Chloride [Moles/Vol] 105 mmol/L Normal 98-107 [facility] Comment on above: Order Comment: Speci men Type: BLOOD SPECIMENOrdering Facility: [facility] Address: [address] [place] [address] Performed By: #### 3 040-3, ####[facility]ORATORYCLIA [id number] [place] [address] [place] CO2 [Moles/Vol] 19 mmol/L Low 22-30 [facility] Comment on above: Order Comment: Speci men Type: BLOOD SPECIMENOrdering Facility: [facility] Address: [address] [place] [address] Performed By: #### 3 040-3, 94263-7 ####[facility] LABORATORYCLIA [id number] [place] [address] [place] Creatinine [Mass/Vol] 0.77 mg/dL Normal 0.73-1.22 [facility] Comment on above: Order Comment: Speci men Type: BLOOD SPECIMENOrdering Facility: [facility] Address: [address] [place] [address] Performed By: #### 3 040-3, 25091-4 ####[facility] [id number] [address] OF [facility] Creatinine and Glomerular filtration rate.predicted panel (S/P/Bld) 89 mL/min/1.73m??? Normal >=60 [facility] Comment on above: Order Comment: Vaishnavi mansfield Type: BLOOD SPECIMENOrdering Facility: [facility] Address: [address] [place] [address] Result Comment: Rhea mated Glomerular Filtration Rate (eGFR) is calculated using the 2020 CKD-EPI creatinine equation. This equation utilizes serum creatinine, sex, and age as parameters. The creatinine assay has traceable calibration to isotope dilution-mass spectrometry. Refer to KDIGO guidelines for clinical interpretation. In patients with unstable renal function, e.g. those with acute kidney injury, the eGFR may not accurately reflect actual GFR. Performed By: #### 3 040-3, 72972-5 ####[facility] HOSPITALIA [id number] [place] [address] [place] Glucose [Mass/Vol] 110 mg/dL High 74-99 [facility] Comment on above: Order Comment: Vaishnavi mansfield Type: BLOOD SPECIMENOrdering Facility: [facility] Address: [address] [place] [address] Result Comment: The [place] [employer] (ADA) provides guidance for cutoff values for fasting glucose and random glucose. The ADA defines fasting as no caloric intake for at least 8 hours. Fasting plasma glucose results between 100 to 125 mg/dL indicate increased risk for diabetes (prediabetes). Fasting plasma glucose results greater than or equal to 126 mg/dL meet the criteria for diagnosis of diabetes. In the absence of unequivocal hyperglycemia, results should be confirmed by repeat testing. In a patient with classic symptoms of hyperglycemia or hyperglycemic crisis, random plasma glucose results greater than or equal to 200 mg/dL meet the criteria for diagnosis of diabetes. Reference: Standards of Medical Care in Diabetes 2016, [place] [employer]. Diabetes Care. 2016.39(Suppl 1). Performed By: #### 3 040-3, 50489-6 ####[facility] LABORATORYIA [id number] [address] STATES OF [facility] Potassium [Moles/Vol] 4.2 mmol/L Normal 3.7-5.1 [facility] Comment on above: Order Comment: Speci men Type: BLOOD SPECIMENOrdering Facility: [facility] Address: [address] [place] [address] Performed By: #### 3 040-3, 21233-7 ####[facility] LABORATORYCLIA [id number] [place] [address] [place] Protein [Mass/Vol] 6.6 g/dL Normal 6.3-8.0 [facility] Comment on above: Order Comment: Speci men Type: BLOOD SPECIMENOrdering Facility: [facility] Address: [address] [place] [address] Performed By: #### 3 040-3, 83759-3 ####[facility]ATORYCLIA [id number] [address] Sodium [Moles/Vol] 138 mmol/L Normal 136-144 [facility] Comment on above: Order Comment: Speci men Type: BLOOD SPECIMENOrdering Facility: [facility] Address: [address] [place] [address] Performed By: #### 3 040-3, 28268-8 ####[facility] LABORATORYCLIA [id number] [address] [place] Urea nitrogen [Mass/Vol] 12 mg/dL Normal 9-24 [facility] Comment on above: Order Comment: Speci men Type: BLOOD SPECIMENOrdering Facility: [facility] Address: [address] [place] [address] Performed By: #### 3 040-3, 86514-4 ####[facility]ATORYCLIA [id number] [address] ED NOTEon 12-23-2024 ED NOTE HNO ID: [id number] Author: NIKOLE WOLFE RN Service: Emergency Medicine Author Type: Registered Nurse Type: ED Notes Filed: 12/23/2024 13:54 Note Text: Report given to FREDDY Morin RN. Normal [facility] ED NOTE HNO ID: [id number] Author: NAE MAGALLON, LINH Service: Emergency Medicine Author Type: Registered Nurse Type: ED Notes Filed: 12/23/2024 12:52 Note Text: MRI form sent Normal [facility] ED NOTE HNO ID: [id number] Author: ANASTACIO TIRADO Medic Service: ? Author Type: Fire Protection Inspector and Insurance And Financial Services Agent Type: ED Notes Filed: 12/23/2024 10:38 Note Text: Bed: 06-ED Expected date: Expected time: Means of arrival: Comments: [place] transfer trauma consult Normal [facility] ED PROV NOTEon 12-23-2024 ED PROV NOTE HNO ID: [id number] Author: LESA GARCIA MD Service: Emergency Medicine Author Type: Physician Type: ED Provider Notes Filed: 12/23/2024 13:24 Note Text: Attending Physician Attestation Note: Briones findings confirmed. I saw the patient in coordination with the resident physician. I personally interviewed and examined the patient. I discussed the patient with the resident physician. I reviewed the resident physician's note. I was present for briones portions of and personally supervised any/all procedures. I agree with the resident physician's findings and medical decision making unless otherwise documented. 84-year-old gentleman with history A-fib maintained on Xarelto, history of BPH presenting as a transfer from [facility] Patient presented to outside hospital with reports of left-sided weakness. Last normal last night. Woke up this morning is have difficulty walking and using his left arm. No headache. Was having some paresthesias but not complete loss of sensory. Reports a fall that occurred 3 days prior. Last dose of Xarelto was this morning. Imaging was obtained that showed evidence of subdural, subarachnoid hemorrhage. Transferred here for trauma consultation. Patient was given Keppra, labetalol, Kcentra. Placed on Cardene drip with goal systolics of 140s given continued elevated blood pressures. He denies any chest pain cough or shortness of breath. No recent abdominal pain nausea vomiting or diarrhea. 10 point review of systems completed with pertinent positives and negatives as per history of present illness, otherwise negative. Physical exam PRIMARY SURVEY Airway is intact Breath sounds present bilaterally and symmetric Bilateral radial, femoral, DP and PT pulses are palpated and symmetric GCS 15 SECONDARY SURVEY Head is normocephalic. No outward signs of trauma. PERRL TM clear without hemotympanum Midface stable Nares are clear without any septal hematoma or active bleeding. Oropharynx is clear without any intraoral trauma. No findings of malocclusion. Trachea midline without deviation. No evidence of JVD. No midline cervical tenderness palpation, step-off or deformity. Chest is atraumatic. No outward signs of trauma. No crepitus or deformity on palpation. No tenderness. Breath sounds present bilateral and symmetric without wheezing, rales or rhonchi. No increased work of breathing, no accessory muscle usage. Patient placed on 2 L by nasal cannula for comfort. Heart is regular rate and rhythm without murmur, rub or gallop. Patient's abdomen is soft, nondistended and nontender to palpation. No rebound or guarding. No peritoneal signs. No bruising or discoloration to the abdomen or flanks. Pelvis is stable. Range of motion of extremities without deficit. No obvious signs of trauma. Distal MSPs intact. No midline thoracic, lumbar back pain on palpation. No step-off or deformity. Normal gluteal squeeze NIHSS: 1(a). Mental Status - LOC 0 = Alert and Attentive 1(b). LOC Questions 0 = Correct age and month 1(c). LOC-Commands 0 = Both 2. Gaze 0 = Normal 3. Visual Bustillo 0 = Full 4. Facial Weakness 0 = Normal 5(a). Left Arm 0 = No drift 5(b). Right Arm 0 = No drift 6(a). Left Leg 1 = Drift, but does not hit bed 6(b). Right Leg 0 = No drift 7. Ataxia 0 = Absent 8. Sensory 0 = Normal 9. Aphasia 0 = None 10. Dysarthria 0 = Absent 11. Neglect 0 = None NIHSS Total (0-42): 1 MDM Patient is a 84-year-old male with history as above presenting with complaints of fall with head injury, evidence of subdural, subarachnoid hemorrhage on CT imaging. History and exam as above. Medical record reviewed. Additional encounters reviewed: Encounter from outside hospital earlier this morning HPI obtained from patient, EMS report, report from sending facility Triage Vitals reviewed: Triage vital stable blood pressure 112/79 on Cardene. Pulse of 77, afebrile temp 36.5 DDx considered : Patient arrives for trauma assessment, reports a fall 3 days ago with evidence of ICH on DOAC. Already received reversal, Keppra and blood pressure control. NIH calculated be 1 with some mild motor deficits the left leg. Trauma and neurosurgery consulted to see and evaluate this patient. Case reviewed with on-call trauma surgery staff, Dr. Chauhan. Patient declining anything for pain control at this time. Lesa Garcia MD This note was created using [employer] dictation software. Every attempt was made to proofread, however you may find errors regardless of how insignificant they may be. They are purely unintentional and if there are any concerns regarding this dictation, please do not hesitate to call the dictating provider for clarification. LESA GARCIA 12/23/24 1324 [facility] ED PROV NOTE HNO ID: [id number] Author: LESA GARCIA MD Service: Emergency Medicine Author Type: Resident Type: ED Provider Notes Filed: 12/24/2024 08:55 Note Text: Attestation signed by Lesa Garcia MD at 12/24/2024 8:55 AM Attending Physician Attestation Note: Briones findings confirmed. I saw the patient in coordination with the resident physician. I personally interviewed and examined the patient. I discussed the patient with the resident physician. I reviewed the resident physician's note. I was present for briones portions of and personally supervised any/all procedures. I agree with the resident physician's findings and medical decision making unless otherwise documented. Lesa Garcia MD Signature: Lesa Garcia MD Date: 12/24/2024 Time: 8:55 AM ED Provider Note Patient Name: Sung Yañez : 1940 SERVICE DATE: 12/23/24 History Patient presents with: Functional Transfers: Sent from [place] for HTN and subdural/subarachnoi d. Ongoing left leg numbness which pt hjas a hx of NIH of 1 per transport. Was a 5 when he arrived at [facility] but improving. HPI 84-year-old male presents to the emergency department as a transfer from the [place] [facility] for a subdural/subarachnoi d hemorrhage secondary to a mechanical fall that happened 3 days ago. Past medical history of A-fib (Xarelto), HTN, melanoma, and BPH, the patient states that he was out in his garage when the floor was slippery and caused him to fall backwards hitting the back of his head. He denies LOC and states he was able to get off the floor without complication or issue nor symptoms at that time. He states that yesterday he had a minor episode of vertigo that resolved and then this morning had acute onset left leg numbness and weakness. He then took himself to the [place] with a document additional numbness to the left upper arm. CT scans positive for subdural hematoma on the right measuring 0.5 cm at the temporal region and a subarachnoid hemorrhage extending on the falx and tentorium on the right with masslike component measuring 5 x 2 cm. There is a midline shift of the anterior aspect 0.5 cm towards the left. Patient was given 1 g Keppra, 1 g labetalol, and Kcentra. Patient was then transported on Cardene with goal systolic of 140. Upon presentation to [facility], patient reports a minor headache without vision changes and left lower leg weakness. He denies unilateral numbness stating that his numbness is consistent with his known bilateral lower leg neuropathy and denying weakness to his upper extremities or other deficits. He denies nausea, vomiting, lightheadedness, chest pain, SOB, hip pain, difficulty finding words or speaking, or fevers. He states he took his Xarelto yesterday evening at 5 PM and has not missed any doses prior. PAST MEDICAL HISTORY Diagnosis Date BPH (benign prostatic hyperplasia) Diverticulosis of colon (without mention of hemorrhage) H/O degenerative disc disease Melanoma (HCC) Unspecified essential hypertension PAST SURGICAL HISTORY Procedure Laterality Date COLONOSCOP W/ OR W/O [facility] SPEC 09/17/03 Colonoscopy COLONOSCOP W/ OR W/O [facility] SPEC 06/02/2010 Colonoscopy PAST SURGICAL HISTORY OF 05/04 prostate surgery REMOVAL OF TONSILS,<12 Y/O 18 months old Tonsillectomy FAMILY HISTORY Problem Relation Age of Onset Colon Cancer Father Social History Tobacco Use Smoking status: Never Smokeless tobacco: Not on file Substance and Sexual Activity Alcohol use: Yes Comment: ocass Drug use: Not on file Sexual activity: Not on file ALLERGIES No Known Allergies Review of Systems See HPI for further details Physical Exam Vitals BP Pulse Temp Temp src Resp SpO2 Weight Height 12/23/24 1037 12/23/24 1036 12/23/24 1037 12/23/24 1037 12/23/24 1036 12/23/24 1037 12/23/24 1430 12/23/24 1430 112/79 84 36.5 ?C (97.7 ?F) Oral 16 96 % 95 kg (209 lb 7 oz) 1.905 m (6' 3) Physical Exam Constitutional: General: He is not in acute distress. Appearance: Normal appearance. He is normal weight. He is ill-appearing. He is not toxic-appearing or diaphoretic. HENT: Head: Normocephalic and atraumatic. Right Ear: Ear canal and external ear normal. There is impacted cerumen. Left Ear: Tympanic membrane, ear canal and external ear normal. Nose: Nose normal. Mouth/Throat: Mouth: Mucous membranes are moist. Pharynx: Oropharynx is clear. Eyes: General: No visual field deficit. Extraocular Movements: Extraocular movements intact. Right eye: Nystagmus present. Left eye: Nystagmus present. Conjunctiva/sclera: Conjunctivae normal. Pupils: Pupils are equal, round, and reactive to light. Cardiovascular: Rate and Rhythm: Normal rate and regular rhythm. Pulses: Normal pulses. Heart s (more content not included)... Normal [facility] Emergency Department Summary on 12-23-2024 Emergency Department Summary [facility] Medical Records Department [address] [place] [address] Emergency Department Summary 12/23/24 MR#: [id number] Acct: [id number] Name: SUNG YAÑEZ Rep #: [id number] : 1940 84 From: Frankie Yu DO PCP: Dr. Briseida Vergara MD Status:REG ER Location: ED HPI History of Present Illness Chief Complaint: Numb/Ting PFSH PFSH Medical History Cancer Ambulates with cane History of edema History of echocardiogram History of stress test H/O Mohs micrographic surgery for skin cancer History of atrial fibrillation Arthritis Prostate disease History of hiatal hernia Former smoker CPAP (continuous positive airway pressure) dependence Sleep apnea Cardiology follow-up encounter Urinary tract infection with hematuria Urinary frequency Bilateral lower extremity edema Phlebitis of superficial vein of right lower extremity Lumbar and sacral osteoarthritis Lumbar disc displacement without myelopathy Lumbar degenerative disc disease Chronic prostatitis Acute cystitis with hematuria Essential (primary) hypertension Back pain Paroxysmal atrial fibrillation BPH (benign prostatic hyperplasia) Home Medications ???Medication ???Instructions ???Recorded ???Last Taken ???Type lisinopril 20 mg tablet 20 mg PO DAILY #90 tabs 06/20/24 U nknown Rx rivaroxaban 20 mg tablet (Xarelto) 20 mg PO QPM #90 tabs 06/20/24 U nknown Rx metoprolol succinate 50 mg 50 mg PO QDAY #90 tabs 08/22/24 Un known Rx tablet,extended release 24 hr Allergy/AdvReac Type Severity Reaction Status Date / Time No Known Allergies Allergy Verified 12/23/24 07:16 Family History Mother Myocardial infarction Father Colon cancer Sister Myocardial infarction Surgical History History of cardiac catheterization History of transurethral resection of prostate History of eye surgery History of lumbar discectomy History of prostatectomy History of left heart catheterization (2011) Social History Smoking Status: Former smoker how long ago did patient quit smokin03/02/1987 alcohol intake: current alcohol intake frequency: a few times a week substance use type: does not use caffeine: No EXAM Physical Exam Const Vital Signs: 12/23/24 07:16 12/23/24 08:12 12/23/24 08:22 Temperature 98.8 F Temperature Source Oral Pulse Rate 67 73 Respiratory Rate 18 18 Blood Pressure 171/93 H 172/84 H Blood Pressure Mean 119 113 Pulse Ox 98 96 Oxygen Delivery Method Room Air 12/23/24 08:27 12/23/24 08:39 12/23/24 08:42 Temperature Temperature Source Pulse Rate 87 80 Respiratory Rate 17 16 Blood Pressure 175/101 H 170/100 H Blood Pressure Mean 125 123 Pulse Ox 96 98 98 Oxygen Delivery Method Room Air Room Air 12/23/24 08:54 12/23/24 08:57 12/23/24 09:12 Temperature Temperature Source Pulse Rate 83 82 85 Respiratory Rate 17 19 H 14 Blood Pressure 170/100 H 152/86 H 152/86 H Blood Pressure Mean 123 108 108 Pulse Ox 98 99 96 Oxygen Delivery Method Room Air Room Air 12/23/24 09:12 Temperature Temperature Source Pulse Rate 86 Respiratory Rate 23 H Blood Pressure 136/81 H Blood Pressure Mean 99 Pulse Ox 97 Oxygen Delivery Method [facility] MDM Narrative Medical decision making narrative: HISTORY OF PRESENT ILLNESS: Chief complaint: Fall, paresthesias 84-year-old male history of A-fib on Xarelto, PAD, hypertension presents with paresthesias that he relates to a fall that he suffered on Monday (12/20/2024). He states he was doing well after the f all but then last night (12/22/2024) approximately 11 PM he went to sleep he was last noted to be normal. He states he woke up at 2 with some tingling in weakness in the left side. He notes it is since gotten worse. Denies any facial droop, slurred speech. REVIEW OF SYSTEMS: Pertinent positives: Fall, head trauma, paresthesias Pertinent negatives: Chest pain PHYSICAL EXAM: Nursing triage notes reviewed, Vital signs reviewed Constitutional: please see mdm HENT: MMM Eyes: Pupils equal round and reactive to light, Extraocular muscles intact Neck: No stridor, no JVD, full neck ROM Lungs: Clear to auscultation, No wheezing or rales. No increased work of breathing, no conversational dyspnea, no accessory muscle use, no nasal flaring. No respiratory distress noted Heart: Regular rate and rhythm, No murmurs, No rubs and No gallops, 2+ distal pulses (radial, femoral, posterior tibial) in all extremities Abdomen: Soft, there is no tenderness, rigidity, rebound or guarding, no obviou (more content not included)... Normal [facility] Eosinophil percentageOrdered By: Frankie Yu on 12-23-2024 Eosinophils/100 WBC (Bld) 2.4 % 0-5 [facility] Erythrocyte distribution wid th ratioOrdered By: Frankie Yu on 12-23-2024 Erythrocyte distribution width (RBC) [Ratio] 13.8 % 11.6-14.6 [facility] Erythrocyte distribution wid th standard deviationOrdered By: Frankie Yu on 12-23-2024 Erythrocyte distribution width (RBC) [Ratio] 47.2 fl High 35.1-43.9 [facility] Ethanol SerPl-mCncon 025 Ethanol [Mass/Vol] mg/dL Normal <11 [facility] Comment on above: Order Comment: Speci men Type: BLOOD SPECIMENOrdering Facility: [facility] Address: [address] [place] [address] Performed By: #### 5 643-2 ####[facility] LABORATORYCLIA [id number] [place] [address] [place] Glomerular filtration rate ( GFR) estimation/1.73 sq m using serum, plasma, or whole bOrdered By: Frankie Yu on 12-23-2024 GFR/1.73 sq M.predicted among non-blacks MDRD (S/P/Bld) [Vol rate/Area] 83 mL/min/{1.73_m2} >60 [facility] Comment on above: mL/min/1.73m2 CKD-EP I Creatinine Equation (2020) [facility] deOrdered By: Frankie Yu on 12-23-2024 Glucose [Mass/Vol] 94 mg/dL 74-106 [facility] Comment on above: MANAGEMENT OF PATIEN T CARE PER NURSING PROTOCOL HISTORY PHYSICALon HISTORY PHYSICAL HNO ID: [id number] Author: BRITTON RODRIGUEZ PA-C Service: General Surgery Author Type: Physician Matrix Plater Type: H&P Filed: 12/24/2024 11:20 Note Text: TRAUMA SURGERY H AND P ARRIVAL DATE: 12/23/2024 ARRIVAL TIME: 1100 CATEGORY: Consult Consult Requesting Physician: Dr. Lesa Garcia INJURY DATE: 12/20/2024 INJURY TIME: around 4 PM Subjective Trauma surgery was asked by the ED to evaluate this 84 year old male with a PMH of A fib (on Xarelto), CHRISTOPHER, HTN, Melanoma, LLE neuropathy, and chronic low back pain. He is a transfer from [place] [facility]. History was obtained via ED staff, chart review, and patient/family interview. Patient reportedly had a ground level mechanical fall onto concrete three days ago on 12/20. Per patient, he did hit his head, but he did not pass out. He is on Xarelto daily, and he has continued taking it everyday since his fall. He did not seek medical attention until this morning when he woke up at 2 AM with a severe headache and new onset LLE weakness. He denied any current CP, Shortness of Breath, N/V, ABD pain, fevers, chills, or cough. At [facility], he had a CT scan of the brain completed as well as a CTA H/N which were remarkable for acute SDH along the right tentorium and falx. There was also a 2 cm by 5 cm collection adjacent to his falx bleed. He was given KCentra and Keppra at the facility prior to transfer. He also received a Cardene drip en route to [facility]. On exam, patient is alert and oriented x 4. He is accompanied by his and son. He follows all commands and answers questions appropriately. We had a code status discussion as well, and he would like to remain a full code at this time. HPI/CHIEF COMPLAINT: fall BRIEF DESCRIPTION OF INJURIES: ICH LAST FLUIDS/MEAL: 12/22/2024 CODE STATUS: FULL CODE ALLERGIES No Known Allergies (Not in a hospital admission) DATE OF LAST TETANUS: unknown Immunization History Administered Date(s) Administered COVID-19 original vaccine, age 12+ yr, monovalent (PFIZER-BIONTECH - TURNER TOP) 09/23/2021 COVID-19 original vaccine, age 12+ yr, monovalent (PFIZER-BIONTECH - PURPLE TOP) 07/28/2020 08/18/2020 03/31/2021 COVID-19 vaccine, age 12+ yr (PFIZER-BIONTECH COMIRNATY) 03/28/2023 03/06/2024 COVID-19 vaccine, age 12+ yr, bivalent (RADLIVE) 03/17/2022 PAST MEDICAL HISTORY Diagnosis Date BPH (benign prostatic hyperplasia) Diverticulosis of colon (without mention of hemorrhage) H/O degenerative disc disease Melanoma (HCC) Unspecified essential hypertension PAST SURGICAL HISTORY Procedure Laterality Date COLONOSCOP W/ OR W/O [facility] SPEC 09/17/03 Colonoscopy COLONOSCOP W/ OR W/O [facility] SPEC 06/02/2010 Colonoscopy PAST SURGICAL HISTORY OF 05/04 prostate surgery REMOVAL OF TONSILS,<12 Y/O 18 months old Tonsillectomy Social History Tobacco Use Smoking status: Never Substance Use Topics Alcohol use: Yes Comment: ocass FAMILY HISTORY Problem Relation Age of Onset Colon Cancer Father ROS: Is the patient having any pain? Yes LOCATION: minimal posterior headache at the time of my exam Constitutional: Negative Eye/Ear/Nose: Negative Respiratory: Negative Cardiovascular: h/o A Fib, HLD, and HTN GI/Liver/Biliary: Negative Genitourinary: Negative Psychiatric: Negative Neurologic: complains of LLE weakness, history of LLE neuropathy Musculoskeletal: chronic low back pain Integument: h/o melanoma Endocrine: Negative Heme/Lymph: Negative OBJECTIVE: BP 131/75 Pulse 70 Temp 36.5 ?C (97.7 ?F) (Oral) Resp 16 SpO2 (!) 93% PHYSICAL EXAM: Genl: Appears age appropriate. No acute distress. Resting comfortably. Head/Face: Normocephalic. Posterior scalp abrasion and ecchymosis without laceration or active drainage. Eyes: EOMI. Sclera not icteric, not injected Neck: No mid-line masses. C-spine non-tender. Back: T AND L Spine non-tender, no step-offs noted. No flank tenderness. Resp: Lungs clear bilat. No wheezes. No rales. Breathing is non-labored on RA. SpO2 93%. CVS: HR as above. 2+ pulses at RA, DP, PT bilat. GI: Abdomen is soft, non-tender, not distended. No peritonitis. MSK: HELMS. Extremities without clubbing, cyanosis, edema. Normal ROM x 4. Skin: Warm and dry. Not jaundiced. Neuro: AANDOx3. RUE, RLE, and LUE strength and sensation wnl. LLE weakness present 3/5 strength, sensation remains intact. GCS15. Psych: Normal mood. Normal affect. Appropriate insight into current situation. PRIOR TO ARRIVAL: No Loss of Consciousness Labs: Recent Labs 12/23/24 1040 NA 138 K 4.2 CHLOR 105 CO2 19* BUN 12 CREAT 0.77 GLUC 110* ANION 14 CA 8.5 ALB 3.6* AST 18 ALT 10 ALKPHOS 88 TBILI 1.0 WBC 6.62 HB 14.5 HCT 45.4 PLT 203 INR 1.2 Assessment/Plan Active Hospital Problems Diagnosis Date Noted SDH (subdural hematoma) (HCC) 12/23/2024 Trauma 12/23/2024 Fall 12/23/2024 Current use of buttermaker anticoagulation 0 (more content not included)... Normal [facility] Hematocrit Auto (Bld) [Volum e fraction]Ordered By: Frankie Yu on 12-23-2024 Hematocrit (Bld) [Volume fraction] 40.9 % 40-54 [facility] Hemoglobin measurementOrdere d By: Frankie Yu on 12-23-2024 Hemoglobin (Bld) [Mass/Vol] 13.6 g/dL 13.0-16.5 [facility] Immature granulocytes/100 WB C Auto (Bld)Ordered By: Frankie Yu on 12-23-2024 Immature granulocytes/100 WBC (Bld) 0.300 % 0.0-0.9 [facility] Comment on above: IG% - Immature Granu locytes (promyelocytes, myelocytes and metamyelocytes) > 1% indicates that a LEFT SHIFT is Present. International normalized rat io (INR) calculationOrdered By: Frankie Yu on 12-23-2024 INR Coag (Bld) [Relative time] 2.9 {INR} [facility] L499.0042on 12-23-2024 Trop T High Sen Normal <=22 [facility] Comment on above: Result Comment: Canc elled via OM: Order cancelled - Patient discharged Performed By: #### L 500.2500 #### [facility] [address] [place], [address] L499.0043on 12-23-2024 Trop T High Sen Normal <=22 [facility] Comment on above: Result Comment: Canc elled via OM: Order cancelled - Patient discharged Performed By: #### L 500.2500 #### [facility] [address] [place], [address] L501.4021on 12-23-2024 Trop T High Sen 15 ng/L Normal <=22 [facility] Comment on above: Order Comment: REDRA W MEHULE NOTIFIED Performed By: #### L 500.2500 #### [facility] [address] [place], [address] Lipase SerPl-cCncon 12-24-19 25 Lipase [Catalytic activity/Vol] 28 U/L Normal 16-61 [facility] Comment on above: Order Comment: Speci men Type: BLOOD SPECIMENOrdering Facility: [facility] Address: [address] [place] [address] Performed By: #### 3 040-3, 67227-2 ####[facility] LABORATORYCLIA [id number] [place] [id number] [place] MCV (mean corpuscular volume ) determinationOrdered By: Frankie Yu on 12-23-2024 MCV (RBC) [Entitic vol] 92.5 fL 80-94 [facility] MRI BRAIN WO/W IVCONon 12-23 MRI BRAIN WO/W IVCON * * *Final Report* * * DATE OF EXAM: Dec 23 2024 7:23PM [facility] 0295 - MRI BRAIN WO/W IVCON / PROCEDURE REASON: Head trauma, moderate-severe * * * * Physician Interpretation * * * * EXAMINATION: MRI BRAIN WO/W IVCON CLINICAL HISTORY: Head trauma, moderate to severe TECHNIQUE: Routine brain MRI protocol without and with contrast including diffusion images. MQ: [id number] Contrast: 9.5 mL Elucirem IV COMPARISON: Head CT performed 12/23/2024 RESULT: Acute Change: There is no evidence of restricted diffusion to suggest an acute infarct. Hemorrhage: Again noted is a large left paracentral seen extra-axial presumed subdural hemorrhage measuring up to 2.3 cm in thickness, extending along the right tentorium, with an additional component overlying the right convexity measuring up to 8 mm in thickness. The collections are mixed signal intensity. There is accompanying subarachnoid hemorrhage overlying the convexity. The collections are slightly larger than on the CT performed 12/23/2024 at 2:11 PM but similar to the more recent study performed at the 6:20 PM. On postgadolinium images, there is some internal enhancement in the collection overlying the falx which could be SPOT Sign/extravasation. Recommend additional short interval follow-up. Mass Lesion/ Mass Effect: There is mild right to left shift of midline Chronic Change: Scattered patchy and confluent areas of increased T2 and FLAIR signal are present in the supratentorial white matter which is nonspecific but likely represents chronic microvascular ischemia. Parenchyma: There is moderate generalized parenchymal volume loss. The brain parenchyma is otherwise within normal limits of signal intensity and morphology. Ventricles: There is mass effect on the right lateral ventricle. Skull Base: Hypothalamic and pituitary region are grossly normal. Craniocervical junction is normal. No significant marrow replacement process. Vasculature: Major intracranial arterial structures, and dural venous sinuses show typical flow void, suggesting patency by spin echo criteria. Other: Minimal fluid in the right mastoid and left sphenoid. Bilateral pseudophakia. IMPRESSION: 1. Large right parafalcine convexity subdural hemorrhage, similar in size to the most recent CT. Accompanying convexity subarachnoid blood. 2. Internal irregular enhancement within the collection which could represent extravasation/SPOT Sign. Recommend short interval follow-up. 3. Continued mild right to left shift of midline in mass effect on the right lateral ventricle 4. Moderate microvascular ischemic change COMMUNICATION: Communicated with Brenda Marshall on 12/23/2024 7:55 PM via verbal communication. Hypoid Gear Tester: PSCB Transcribe Date/Time: Dec 23 2024 7:34P Dictated by : NAPOLEON MATIAS MD This examination was interpreted and the report reviewed and electronically signed by: NAPOLEON MATIAS MD on Dec 23 2024 8:06PM EST [id number] CN Normal [facility] Mean corpuscular hemoglobin (MCH) determinationOrdered By: Frankie Yu on 12-23-2024 MCH (RBC) [Entitic mass] 30.8 pg 27.0-32.0 [facility] Mean corpuscular hemoglobin concentration (MCHC) determinationOrdered By: Frankie Yu on 12-23-2024 MCHC (RBC) [Mass/Vol] 33.3 g/dL 32-36 [facility] Mean platelet volume determi nationOrdered By: Frankie Yu on 12-23-2024 Platelet mean volume (Bld) [Entitic vol] 11.5 fL 6.2-12.0 [facility] Monocyte percentageOrdered B y: Frankie Yu on 12-23-2024 Monocytes/100 WBC (Bld) 12.8 % High 0-10 [facility] Neutrophil percentageOrdered By: Frankie Yu on 12-23-2024 Neutrophils/100 WBC (Bld) 68.3 % 47-70 [facility] Nucleated red blood cell per centageOrdered By: Frankie Yu on 12-23-2024 Nucleated RBC/100 WBC (Bld) [Ratio] 0 % 0-5 [facility] PT panel Coag (PPP)on 2024 INR Coag (PPP) [Relative time] 1.2 {INR} Normal 0.9-1.3 [facility] Comment on above: Order Comment: Speci men Type: BLOOD SPECIMENOrdering Facility: [facility] Address: [address] [place] [address] Result Comment: Bria min K Antagonist (VKA) Therapeutic Range: INR 2 to 3 (Target INR of 2.5) Note: For patients treated with VKA drugs, such as warfarin, the [place] [employer] 2012 Guideline recommends a therapeutic INR range of 2 to 3 (target INR of 2.5). This recommendation includes high-risk patients with antiphospholipid syndrome with previous arterial or venous thromboembolism, current-generation mechanical or bioprosthetic aortic heart valve replacement. Note: Patients with mechanical aortic valve replacement and additional risk factors for thromboembolic events (atrial fibrillation, previous thromboembolism, LV dysfunction, hypercoagulable conditions) or an older generation mechanical AVR (i.e., ball in-Cage) or any mechanical MVR should have a INR therapeutic range of 2.5 to 3.5 (target INR of 3). Gato IQBAL, et al. Chest 2012, 141:7S-47S Rebecca RA, et al. JAC 2017, 70: 252-289 Performed By: #### 1 4979-9, 61125-2 ####[facility] LABORATORYCLIA [id number] [place] [address] [place] PT Coag (PPP) [Time] 12.8 s Normal 9.7-13.0 [facility] Comment on above: Order Comment: Speci men Type: BLOOD SPECIMENOrdering Facility: [facility] Address: [address] [place] [address] Performed By: #### 1 4979-9, 32742-2 ####[facility] LABORATORYCLIA [id number] [place] [address] [place] [facility] Partial Thromboplast Timeon 12-23-2024 aPTT Coag (Bld) [Time] 36.2 s Normal 24.1-36.2 [facility] Comment on above: Performed By: #### L 500.2500 #### [facility] Laboratory [address] [place], [address] Platelet countOrdered By: Tamara Yu on 12-23-2024 Platelets (Bld) [#/Vol] 186 10*3/uL 150-450 [facility] Potassium measurement (mass/ volume)Ordered By: Frankie Yu on 12-23-2024 Potassium (Unsp spec) [Mass/Vol] 4.3 mmol/L 3.3-5.1 [facility] Prothrombin Time w/INRon INR Coag (PPP) [Relative time] 2.9 {INR} Normal [facility] Comment on above: Performed By: #### L 500.2500 #### [facility] [address] [place], [place], [id number] PT Coag (PPP) [Time] 31.1 s High 11.7-14.9 [facility] Comment on above: Performed By: #### L 500.2500 #### [facility] [address] [place], [address] Prothrombin timeOrdered By: Frankie Yu on 12-23-2024 PT Coag (PPP) [Time] 31.1 s High 11.7-14.9 [facility] RBC Auto (Bld) [#/Vol]Ordere d By: Frankie Yu on 12-23-2024 RBC (Bld) [#/Vol] 4.42 10*6/uL Low 4.6-6.2 [facility] STAPHYLOCOCCUS AUREUS AND MR SA SCREEN, PCR, NASALon 12-23-2024 S. aureus and MRSA panel ROLANDO+probe (Nose) Not detected Normal Not Detected [facility] Comment on above: Order Comment: Speci men Type: SWABOrdering Facility: [facility] Address: [address] [place] [address] Performed By: #### S APCR ####[facility] LABORATORYCLIA [id number] [place], [place] [id number] [place] [address] OF [facility] STROKE Brain/Head without Co nton 12-23-2024 STROKE Brain/Head without Cont [facility] Imaging Services [address] [place], [place] [id number] STROKE Brain/Head without Cont MR#: [id number] Acct: [id number] Name: SUNG YAÑEZ Rep #: [id number] : 1940 M 84 From: Vickey Nichole MD PCP: Dr. Briseida Vergara MD Status: [facility] ER Study: STROKE Brain/Head without Cont Date of Exam: 0 12/23/24 Exam# [id number] Ordering Dr: Frankie Yu DO EXAM: NONCONTRAST CT SCAN OF THE HEAD CLINICAL HISTORY: Acute stroke COMPARISON: May 25, 2020 TECHNIQUE: Serial axial series through the head were obtained without contrast. 2-D coronal and sagittal reformats were then obtained. FINDINGS: Brain: There is a subdural hematoma on the right measuring 0.5 cm in depth in the temporal region. There is hemorrhage extending along the falx and tentorium on the right with a masslike component posteriorly measuring 5.0 by 2.0 cm, axial image 31/48. There is low-density in the deep white matter on the right and left, and in the right occipital and posterior temporal cortex, which may have an acute infarct component. There is midline shift at the anterior aspect, 0.4 cm towards the left. The basal cisterns appear intact. Paranasal sinuses: Well-aerated Mastoid air cells: Well-aerated. Calvarium: The bony calvarium is intact. Orbits: The bilateral globes are symmetric, without retrobulbar compressive mass lesion or hemorrhage. CT/STROKE Brain/Head without Cont IMPRESSION: There is a subdural hematoma on the right measuring 0.5 cm in depth in the temporal region. There is hemorrhage extending along the falx and tentorium on the right with a masslike component posteriorly measuring 5.0 by 2.0 cm, axial image 31/48. There is low-density in the deep white matter on the right and left, and in the right occipital and posterior temporal cortex, which may have an acute infarct component. There is midline shift at the anterior aspect, 0.4 cm towards the left. Critical results were discussed with Dr. Yu by Dr. Nichole at the time of dictation. Reading Location: [facility] CC: Dr. Briseida Vergara MD; Dr. Frankie Yu DO Hypoid Gear Tester: Signed Normal [facility] STROKE CTA Head AND Neck W/C onon 12-23-2024 STROKE CTA Head AND Neck W/Con [facility] Imaging Services [address] [place] [address] STROKE CTA Head AND Neck W/Con MR#: [id number] Acct: [id number] Name: SUNG YAÑEZ Rep #: [id number] : 1940 M 84 From: Vickey Nichole MD PCP: Dr. Briseida Vergara MD Status: REG ER Study: STROKE CTA Head AND Neck W/Con Date of Exam: 0 12/23/24 Exam# [id number] Ordering Dr: Frankie Yu DO PROCEDURE: STROKE CTA HEAD AND NECK W/CON 12/23/2024 REASON FOR EXAM: NEURO DEFICIT, ACUTE, STROKE SUSPECTED TECHNIQUE: STROKE CTA HEAD AND NECK W/CON Multiplanar Sagittal and Coronal images were obtained. CONTRAST: 100 cc Isovue 370 One or more dose reduction techniques were used (e.g., Automated exposure control, adjustment of the mA and/or kV according to patient size, use of iterative reconstruction technique). RADIATION DOSE SUMMARY: DLP: 880 mGycm COMPARISON: None FINDINGS: Aortic Arch: The ascending aorta is dilated to 4.1 cm in AP diameter. Brachiocephalic and Subclavians: Patent RIGHT Carotid: Right CCA: Patent plaque is noted. Right ICA: Patent Maximum stenosis (NASCET): 0 % Right ECA: Patent LEFT Carotid: Left CCA: Patent plaque is noted. Left ICA: Patent Maximum stenosis (NASCET): 0 % Left ECA: Patent Vertebrals: Patent RIGHT Vertebral: Patent LEFT Vertebral: Patent Anatomy: Unremarkable Aneurysm or avm: None Anterior cerebral arteries: Patent Middle cerebral arteries: Patent Basilar artery: Patent Posterior cerebral arteries: Patent Other major branches of the posterior circulation: Unremarkable Major venous structures: Patent Other findings: Neck: Subdural and parafalcine hematoma is noted, discussed separately. 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 There is no significant stenosis or occlusion identified in the carotid or vertebral system. There is no significant stenosis or occlusion identified in the intracranial arteries. Reading Location: [facility] CC: Dr. Briseida Vergara MD; Dr. Frankie Yu DO Hypoid Gear Tester: Signed Normal [facility] Serum creatinine measurement (mass/volume)Ordered By: Frankie Yu on 12-23-2024 Creatinine [Mass/Vol] 0.92 mg/dL 0.70-1.20 [facility] Serum glucose measurement (m ass/volume)Ordered By: Frankie Yu on 12-23-2024 Glucose [Mass/Vol] 103 mg/dL High 70-99 [facility] Serum or plasma calcium anthony urement (mass/volume)Ordered By: Frankie Yu on 12-23-2024 Calcium [Mass/Vol] 8.8 mg/dL 7.6-11.0 [facility] Serum or plasma urea nitroge n measurement (mass/volume)Ordered By: Frankie Yu on 12-23-2024 Urea nitrogen [Mass/Vol] 14 mg/dL 4-19 [facility] Sodium levelOrdered By: Cristal Yu on 12-23-2024 Sodium [Moles/Vol] 138 mmol/L 133-145 [facility] TOXICOLOGY SCREEN, ROUTINE U RINEon 12-23-2024 Amphetamines Confirm (U) [Mass/Vol] Negative Normal Negative [facility] Comment on above: Order Comment: Speci men Type: URINE SPECIMENOrdering Facility: [facility] Address: [address] [place] [address] Result Comment: Cuto ff threshold at 1000 ng/mL. Performed By: #### U TOX2 ####[facility] LABORATORYCLIA [id number] [place] [address] [place] BARBITURATES, URINE Negative Normal Negative [facility] Comment on above: Order Comment: Speci men Type: URINE SPECIMENOrdering Facility: [facility] Address: [address] [place] [address] Result Comment: Cuto ff threshold at 200 ng/mL. Performed By: #### U TOX2 ####[facility] LABORATORYCLIA [id number] [place] [address] [place] BENZODIAZEPINES, URINE Negative Normal Negative [facility] Comment on above: Order Comment: Speci men Type: URINE SPECIMENOrdering Facility: [facility] Address: [address] [place] [address] Result Comment: Cuto ff threshold at 200 ng/mL. Performed By: #### U TOX2 ####[employer] LABORATORYCLIA [id number] [place] [address] [place] Cannabinoids Screen Ql (U) Negative Normal Negative [facility] Comment on above: Order Comment: Speci men Type: URINE SPECIMENOrdering Facility: [facility] Address: [address] [place] [address] Result Comment: Cuto ff threshold at 50 ng/mL. Performed By: #### U TOX2 ####[facility] LABORATORYCLIA [id number] [address] Cocaine Ql (U) Negative Normal Negative [facility] Comment on above: Order Comment: Speci men Type: URINE SPECIMENOrdering Facility: [facility] Address: [address] [place] [address] Result Comment: Cuto ff threshold at 300 ng/mL. Performed By: #### U TOX2 ####[facility] LABORATORYCLIA [id number] [address] Ethanol (U) [Mass/Vol] <11 Normal <11 [facility] Comment on above: Order Comment: Speci men Type: URINE SPECIMENOrdering Facility: [facility] Address: [address] [place] [address] Performed By: #### U TOX2 ####[facility] LABORATORYCLIA [id number] [address] fentaNYL Screen Ql (U) Negative Normal Negative [facility] Comment on above: Order Comment: Speci men Type: URINE SPECIMENOrdering Facility: [facility] Address: [address] [place] [address] Result Comment: Cuto ff threshold at 5 ng/mL. Performed By: #### U TOX2 ####[facility]ORATORYCLIA [id number] [address] Opiates Screen Ql (U) Negative Normal Negative [facility] Comment on above: Order Comment: Speci men Type: URINE SPECIMENOrdering Facility: [facility] Address: [address] [place] [address] Result Comment: Cuto ff threshold at 300 ng/mL. Performed By: #### U TOX2 ####[facility] LABORATORYCLIA [id number] [address] oxyCODONE cutoff Screen (U) [Mass/Vol] Positive Abnormal Negative [facility] Comment on above: Order Comment: Speci men Type: URINE SPECIMENOrdering Facility: [facility] Address: [address] [place] [address] Result Comment: Cuto ff threshold at 100 ng/mL. Performed By: #### U TOX2 ####[facility] LABORATORYCLIA [id number] [address] Phencyclidine Ql (U) Negative Normal Negative [facility] Comment on above: Order Comment: Speci men Type: URINE SPECIMENOrdering Facility: [facility] Address: [address] [place] [address] Result Comment: Cuto ff threshold at 25 ng/mL. Performed By: #### U TOX2 ####[facility] LABORATORYCLIA [id number] [address] TYPE + SCREENon 12-23-2024 ABO A Normal [facility] Comment on above: Order Comment: Speci men Type: BLOOD SPECIMENOrdering Facility: [facility] Address: [address] [place] [address] Performed By: #### T SCR ####[facility] BLOOD BANKCLIA [id number] [address] [place] Rh Nom (Bld) Positive Normal [facility] Comment on above: Order Comment: Speci men Type: BLOOD SPECIMENOrdering Facility: [facility] Address: [address] [place] [address] Performed By: #### T SCR ####[facility] BLOOD BANKCLIA [id number] [address] TYPE AND SCREEN EXPIRATION 12/26/2024 23:59 Normal [facility] Comment on above: Order Comment: Speci men Type: BLOOD SPECIMENOrdering Facility: [facility] Address: [address] [place] [address] Performed By: #### T SCR ####[facility] BLOOD BANKCLIA [id number] [address] [place] Troponin T.cardiac [Mass/vol ume] in Serum or Plasma by High sensitivity methodOrdered By: Frankie Yu on 12-23-2024 Troponin T.cardiac High sensitivity method [Mass/Vol] 15 ng/L <22 [facility] Troponin T.cardiac [Mass/vol ume] in Serum or Plasma by High sensitivity methodon 12-23-2024 Troponin T.cardiac High sensitivity method [Mass/Vol] [facility] Urinalysis complete panel (U )on 12-23-2024 Bilirubin Ql (U) Negative Normal Negative [facility] Comment on above: Order Comment: Speci men Type: URINE SPECIMENOrdering Facility: [facility] Address: [address] [place] [address] Performed By: #### 2 4356-8 ####[facility] LABORATORYCLIA [id number] [address] [place] Clarity (Unsp spec) Clear Normal Clear [facility] Comment on above: Order Comment: Speci men Type: URINE SPECIMENOrdering Facility: [facility] Address: [address] [place] [address] Performed By: #### 2 4356-8 ####[facility] LABORATORYCLIA [id number] [address] [place] Color (U) Light Yellow Normal yellow [facility] Comment on above: Order Comment: Speci men Type: URINE SPECIMENOrdering Facility: [facility] Address: [address] [place] [address] Performed By: #### 2 4356-8 ####[facility] LABORATORYCLIA [id number] [place] [address] [place] Glucose Test strip (U) [Mass/Vol] Negative Normal Trace, Negative [facility] Comment on above: Order Comment: Speci men Type: URINE SPECIMENOrdering Facility: [facility] Address: [address] [place] [address] Performed By: #### 2 4356-8 ####[facility] LABORATORYCLIA [id number] [place] [address] [place] Hemoglobin Ql (U) 3+ Abnormal Negative, Trace [facility] Comment on above: Order Comment: Speci men Type: URINE SPECIMENOrdering Facility: [facility] Address: [address] [place] [address] Performed By: #### 2 4356-8 ####[facility] LABORATORYCLIA [id number] [address] [place] Ketones Ql (U) Negative Normal Negative, Trace [facility] Comment on above: Order Comment: Speci men Type: URINE SPECIMENOrdering Facility: [facility] Address: [address] [place] [address] Performed By: #### 2 4356-8 ####[facility] LABORATORYCLIA [id number] [address] [place] Leukocyte esterase Test strip Ql (U) 75 Vilma/uL Abnormal Negative, 25 Vilma/uL [facility] Comment on above: Order Comment: Speci men Type: URINE SPECIMENOrdering Facility: [facility] Address: [address] [place] [address] Performed By: #### 2 4356-8 ####[facility] LABORATORYCLIA [id number] [address] STATES OF [facility] Nitrite Ql (U) Negative Normal Negative [facility] Comment on above: Order Comment: Speci men Type: URINE SPECIMENOrdering Facility: [facility] Address: [address] [place] [address] Performed By: #### 2 4356-8 ####[facility] LABORATORYCLIA [id number] [address] [place] pH (U) 7.0 [pH] Normal 5.0-8.0 [facility] Comment on above: Order Comment: Speci men Type: URINE SPECIMENOrdering Facility: [facility] Address: [address] [place] [address] Performed By: #### 2 4356-8 ####[facility] LABORATORYCLIA [id number] [address] Protein (U) [Mass/Vol] Negative Normal Trace , Negative [facility] Comment on above: Order Comment: Speci men Type: URINE SPECIMENOrdering Facility: [facility] Address: [address] [place] [address] Performed By: #### 2 4356-8 ####[facility] LABORATORYCLIA [id number] [address] RBC LM.HPF (Urine sed) [#/Area] /[HPF] Abnormal 0-3 /HPF [facility] Comment on above: Order Comment: Speci men Type: URINE SPECIMENOrdering Facility: [facility] Address: [address] [place] [address] Performed By: #### 2 4356-8 ####[facility] LABORATORYCLIA [id number] [address] STATES [facility] Specific gravity (U) [Rel density] >1.040 High 1.005-1.030 [facility] Comment on above: Order Comment: Speci men Type: URINE SPECIMENOrdering Facility: [facility] Address: [address] [place] [address] Performed By: #### 2 4356-8 ####[facility] LABORATORYCLIA [id number] [address] Urobilinogen Ql (U) Normal Normal Normal [facility] Comment on above: Order Comment: Speci men Type: URINE SPECIMENOrdering Facility: [facility] Address: [address] [place] [address] Performed By: #### 2 4356-8 ####[facility] LABORATORYCLIA [id number] [address] WBC LM.HPF (Urine sed) [#/Area] 0-5 /HPF Normal 0-5 /HPF [facility] Comment on above: Order Comment: Speci men Type: URINE SPECIMENOrdering Facility: [facility] Address: [address] [place] [address] Performed By: #### 2 4356-8 ####[facility] LABORATORYCLIA [id number] [address] White blood cell (WBC) count Ordered By: Frankie Yu on 12-23-2024 WBC (Bld) [#/Vol] 5.8 10*3/uL 4.4-11.0 [facility] aPTT PPPon 12-23-2024 aPTT Coag (PPP) [Time] 34.4 s High 23.0-32.4 [facility] Comment on above: Order Comment: Speci men Type: BLOOD SPECIMENOrdering Facility: [facility] Address: [address] [place] [address] Performed By: #### 1 4979-9, 40328-8 ####[facility] LABORATORYCLIA [id number] [place] [address] [facility] Cardiology Visit Reporton Cardiology Visit Report [facility]. [address] [place], [place] [id number] OFFICE VISIT Date of Service: 12/10/24 MR#: [id number] Acct: [id number] Name: SUNG YAÑEZ Rep #: [id number] : 1940 Provider: LESLEY ahuja Age/Sex: 84/M [place] [facility] Status: Signed HPI HPI History of Present Illness Details: SUNG YAÑEZ, is a 84 M who is here today for a cardiovascular follow up. He has a history of hypertension and paroxysmal atrial fibrillation. His amiodarone was stopped previously due to a change in his DLCO on his PFT. He acknowledges occasional, midsternal, sharp chest pain. This occurs at rest and last for hours. He acknowledges occasional palpitations that he describes as fast. He acknowledges bilateral lower extremity edema with right worse than left. He acknowledges occasional shortness of breath with activity such as getting up to the bathroom at night. This improves with rest. Denies shortness of breath at rest, cough, orthopnea, or PND. He denies lightheadedness, dizziness, near-syncope, or syncope. He denies fatigue or weakness. He does acknowledge balance related issues that he attributes to history of neuropathy. His activity level is stable with regular visits to [facility]. 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 Accompanied by: Is patient in pain?: No Allergies No Known Allergies Allergy (Verified 12/10/24 10:24) Medications ???Medication ???Instructions ???Recorded ???Confirmed ???Type lisinopril 20 mg tablet 20 mg PO DAILY #90 tabs 06/20/24 0 12/10/24 Rx rivaroxaban 20 mg tablet (Xarelto) 20 mg PO QPM #90 tabs 06/20/24 0 12/10/24 Rx metoprolol succinate 50 mg 50 mg PO QDAY #90 tabs 08/22/24 Rx tablet,extended release 24 hr Ejection fraction %: 60 Have you fallen in the past year?: No PFSH Medical History Cancer Ambulates with cane History of edema History of echocardiogram History of stress test H/O Mohs micrographic surgery for skin cancer History of atrial fibrillation Arthritis Prostate disease History of hiatal hernia Former smoker CPAP (continuous positive airway pressure) dependence Sleep apnea Cardiology follow-up encounter Urinary tract infection with hematuria Urinary frequency Bilateral lower extremity edema Phlebitis of superficial vein of right lower extremity Lumbar and sacral osteoarthritis Lumbar disc displacement without myelopathy Lumbar degenerative disc disease Chronic prostatitis Acute cystitis with hematuria Essential (primary) hypertension Back pain Paroxysmal atrial fibrillation BPH (benign prostatic hyperplasia) Surgical History History of cardiac catheterization History of transurethral resection of prostate History of eye surgery History of lumbar discectomy History of prostatectomy History of left heart catheterization (2011) Family History Mother Myocardial infarction Father Colon cancer Sister Myocardial infarction Social History Smoking Status: Former smoker how long ago did patient quit smokin03/02/1987 alcohol intake: current alcohol intake frequency: a few times a week substance use type: does not use caffeine: No ROS Const Const: Negative for fatigue or weakness Eyes Eyes: Negative for change in vision ENT ENT: Positive for balance problems (Neuropathy and left foot drop. Uses cane at times); Negative for dizziness Cardio Chest Pain: Yes Character: sharp Onset: at rest Location: mid sternal Duration: hours Palpitations: Yes (Occasionally) feels like its: fast Edema: Bilateral (Right > left. Relates to neuropathy) Resp Respiratory: Positive for SOB with activity (Occasionally when getting up to bathroom at night. ); Negative for SOB at rest or SOB orthopnea SOB lying down GI GI: Negative nausea or heartburn Musc Musc: Positive for balance problems (Neuropathy and left foot drop. Uses cane at times) Neuro Neuro: Negative for dizziness, lightheadedness, near syncope, syncope or weakness Endo Endo: Negative for fatigue Cardiology Exam Const Appearance: cooperative, healthy appearing, comfortable and no acute distress Nutritional Appearance: well nourished and overweight Orientation: alert, awake and oriented x3 Head Head: normal to inspection Ears: hearing grossly normal bilater (more content not included)... Normal [facility] Urgent Care Visit Reporton 0 11-01-2024 Urgent Care Visit Report [facility] [address], [address] [place] [address] OFFICE VISIT Date of Service: 11/01/24 MR#: [id number] Acct: [id number] Name: SUNG YAÑEZ Rep #: [id number] : 1940 Provider: NEENA Zavala Age/Sex: 84/M Location[facility] Status: Signed Intake Vital Signs 06/20/24 14:50 11/01/24 07:44 Height 6 ft 3 in 6 ft 3 in Weight: 212 lb 215 lb BMI 26.4 26.9 BP 156/94 H 148/78 H Blood Pressure Location Lt brachial Lt brachial Position Sitting Sitting Respiration 16 17 Pulse 74 78 Pulse Source NIBP NIBP Temp 98.0 F Temp Source Oral Pulse Oximetry (%) 99 Oxygen Delivery Method room air Intake Visit Reasons: CAT SCRATCH ON R ARM Chief Complaint: cat scratch [employer] Chief [employer] Officer Required: No Is patient in pain?: Yes Allergies No Known Allergies Allergy (Verified 11/01/24 07:45) Have you fallen in the past year?: Yes Nurse's Note: pt startled cat while sleeping approx 48 hours ago. cat attempted to run away, scratched pt right elbow in the process. scratch extends from distal upper arm to medial forearm. slight active bleeding with bending arm. pt taking Xarelto. Tdap approx 5 years ago, pt willing to update today. [facility] Medical History Cancer Ambulates with cane History of edema History of echocardiogram History of stress test H/O Mohs micrographic surgery for skin cancer History of atrial fibrillation Arthritis Prostate disease History of hiatal hernia Former smoker CPAP (continuous positive airway pressure) dependence Sleep apnea Cardiology follow-up encounter Urinary tract infection with hematuria Urinary frequency Bilateral lower extremity edema Phlebitis of superficial vein of right lower extremity Lumbar and sacral osteoarthritis Lumbar disc displacement without myelopathy Lumbar degenerative disc disease Chronic prostatitis Acute cystitis with hematuria Essential (primary) hypertension Back pain Paroxysmal atrial fibrillation BPH (benign prostatic hyperplasia) Surgical History History of cardiac catheterization History of transurethral resection of prostate History of eye surgery History of lumbar discectomy History of prostatectomy History of left heart catheterization (2011) Family History Mother Myocardial infarction Father Colon cancer Sister Myocardial infarction Social History Smoking Status: Former smoker how long ago did patient quit smokin03/02/1987 alcohol intake: current alcohol intake frequency: a few times a week substance use type: does not use caffeine: No HPI HPI Chief Complaint: cat scratch Details: SUNG YAÑEZ, is a 84 M who presents to the office today for initial evaluation of a cat scratch to his right elbow. Patient states that he started with his cat in the middle of the night and scratched his arm. Patient denies numbness, tingling or loss of range of motion. No fever, chills or sweats. No nausea, vomiting or diarrhea. Patient is on Xarelto and therefore the wound continues to ooze. Patient is unaware of his last tetanus immunization. No other associated symptoms or alleviating/aggravat ing factors. ROS Const Constitutional: Positive for other (6 system ROS completed with pertinent findings in the HPI otherwise normal.) Exam Const General: cooperative and healthy appearing Skin Other: Surface abrasion right arm measuring approximately 10 inches in length extending from the forearm up to the right upper arm overlying the elbow. Wound was cleansed with Hibiclens and then dressed with gauze and Coban. Neuro General: patient alert Psych Appearance: grossly normal Mental Status: mental status grossly normal Coding Level of Care Code Off vis,new,level 3 Diagnoses Cat scratch of right forearm S50.811A; W55.03XA Assessment and Plan Assessment and Plan (1) Cat scratch of right forearm: Status: Acute Plan: Bactrim as prescribed today. Tetanus immunization updated in the office today. Patient advised of ongoing wound care. Encouraged to get plenty of rest, drink lots of clear liquids, and use Tylenol or Ibuprofen (unless contraindicated) for comfort. Patient also educated on other symptomatic management techniques. To be seen in 7-10 days if no improvement; sooner if worsening of symptoms. Patient advised of potential red flags and when appropriate to report to the ED. Patient verbalized understanding and agreement with all the above. Orders: Orders Tdap Immunization Today Z23 - Encounter for immunization Medications: New Boostrix Tdap (diphth,pertus(acell ),tetanus) 0.5 mL (more content not included)... Normal [facility] Cardiology Visit Reporton Cardiology Visit Report [facility] [address] [place] [address]. [address] [place] [address] OFFICE VISIT Date of Service: 06/20/24 MR#: [id number] Acct: [id number] Name: SUNG YAÑEZ Rep #: [id number] : 1940 Provider: LESLEY ahuja Age/Sex: 84/M Location: [facility] Status: Signed HPI HPI History of Present Illness Details: SUNG YAÑEZ, is a 84 M who is here today for a cardiovascular follow up. He has a history of hypertension and paroxysmal atrial fibrillation. His amiodarone was stopped previously due to a change in his DLCO on his PFT. He denies chest, arm, jaw, or neck discomfort. He denies palpitations. He denies bilateral lower extremity edema. He denies claudication. He denies shortness of breath with activity, shortness of breath at rest, orthopnea, or PND. He denies chronic cough. He denies significant, sudden weight gain. He denies lightheadedness, dizziness, near-syncope, or syncope. He states vertigo. He denies blood in urine, blood in stool, or epistaxis. He denies fever with chills. He denies myalgia. He denies fatigue. His exercise level has remained stable. He states home blood pressure recently was systolic 130s. 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 Required: No Is patient in pain?: No Allergies No Known Allergies Allergy (Verified 06/20/24 14:55) Medications ???Medication ???Instructions ???Recorded ???Confirmed ???Type lisinopril 20 mg tablet 20 mg PO DAILY #90 tabs 06/20/24 06/20/24 Rx metoprolol succinate 50 mg 50 mg PO QDAY 06/20/24 History tablet,extended release 24 hr rivaroxaban 20 mg tablet (Xarelto) 20 mg PO QPM #90 tabs 06/20/24 06/20/24 Rx Ejection fraction %: 60 Have you fallen in the past year?: No Nurse's Note: Needs refills on lisinopril and xarelto [facility] Medical History Cancer Ambulates with cane History of edema History of echocardiogram History of stress test H/O Mohs micrographic surgery for skin cancer History of atrial fibrillation Arthritis Prostate disease History of hiatal hernia Former smoker CPAP (continuous positive airway pressure) dependence Sleep apnea Cardiology follow-up encounter Urinary tract infection with hematuria Urinary frequency Bilateral lower extremity edema Phlebitis of superficial vein of right lower extremity Lumbar and sacral osteoarthritis Lumbar disc displacement without myelopathy Lumbar degenerative disc disease Chronic prostatitis Acute cystitis with hematuria Essential (primary) hypertension Back pain Paroxysmal atrial fibrillation BPH (benign prostatic hyperplasia) Surgical History History of cardiac catheterization History of transurethral resection of prostate History of eye surgery History of lumbar discectomy History of prostatectomy History of left heart catheterization (2012) Family History Mother Myocardial infarction Father Colon cancer Sister Myocardial infarction Social History Smoking Status: Former smoker how long ago did patient quit smokin03/02/1987 alcohol intake: current alcohol intake frequency: a few times a week substance use type: does not use caffeine: No ROS Const Const: Negative for fatigue or weakness Eyes Eyes: Negative for change in vision ENT ENT: Negative for dizziness or balance problems Cardio Chest Pain: No Palpitations: No Edema: None (Resolved) Muscle aches with walking: None Resp Respiratory: Negative for SOB with activity, SOB at rest or SOB orthopnea SOB lying down GI GI: Negative nausea or heartburn : Negative for hematuria or frequent nighttime urination/ nocturia Musc Musc: Negative for balance problems Skin Skin: Negative non-healing lesions or rash Neuro Neuro: Positive for vertigo; Negative for dizziness, lightheadedness, near syncope, syncope or weakness Endo Endo: Negative for fatigue Allergy Allergy/Immunology: Negative for rash Cardiology Exam Const Appearance: cooperative, healthy appearing, comfortable and no acute distress Nutritional Appearance: well nourished and overweight Orientation: alert, awake and oriented x3 Head Head: normal to inspection Ears: hearing grossly normal bilaterally Nose: external nose normal Face and Sinus: face symmetric Mouth: moist mucous membranes Eyes General: appearance normal, both eyes and all related structures Eyelids: eyelids normal EOM: EOM (more content not included)... Normal [facility] CBC W/Diff, Automatedon 02-25 Absolute Lymph 1.24 X10 3/uL Normal 0.83-4.51 [facility] Comment on above: Performed By: #### L 500.2500 #### [facility] [address] [place], [place], [id number] Absolute Neut 2.7 X10 3/uL Normal 2.0-7.7 [facility] Comment on above: Performed By: #### L 500.2500 #### [facility] [address] [place], [address] Basophils/100 WBC (Bld) 0.8 % Normal 0-1 [facility] Comment on above: Performed By: #### L 500.2500 #### [facility] [address] [place], [address] Eosinophils/100 WBC (Bld) 4.3 % Normal 0-5 [facility] Comment on above: Performed By: #### L 500.2500 #### [facility] [address] [place], [address] Erythrocyte distribution width (RBC) [Ratio] 13.9 % Normal 11.6-14.6 [facility] Comment on above: Performed By: #### L 500.2500 #### [facility] [address] [place], [address] Hematocrit (Bld) [Volume fraction] 45.6 % Normal 40-54 [facility] Comment on above: Performed By: #### L 500.2500 #### [facility] [address] [place], [address] Hemoglobin (Bld) [Mass/Vol] 14.8 g/dL Normal 13.0-16.5 [facility] Comment on above: Performed By: #### L 500.2500 #### [facility] [address] [place], [address] IG% 0.400 Normal 0.0-0.9 [facility] Comment on above: Result Comment: IG% - Immature Granulocytes (promyelocytes, myelocytes and metamyelocytes) > 1% indicates that a LEFT SHIFT is Present. Performed By: #### L 500.2500 #### [facility] [address] [place], [address] Lymphocytes/100 WBC (Bld) 25.4 % Normal 19-41 [facility] Comment on above: Performed By: #### L 500.2500 #### [facility] [address] [place], [address] MCH (RBC) [Entitic mass] 30.1 pg Normal 27.0-32.0 [facility] Comment on above: Performed By: #### L 500.2500 #### [facility] [address] [place], [address] MCHC (RBC) [Mass/Vol] 32.5 g/dL Normal 32-36 [facility] Comment on above: Performed By: #### L 500.2500 #### [facility] [address] [place], [address] MCV (RBC) [Entitic vol] 92.9 fL Normal 80-94 [facility] Comment on above: Performed By: #### L 500.2500 #### [facility] [address] [place], [address] Monocytes/100 WBC (Bld) 13.3 % High 0-10 [facility] Comment on above: Performed By: #### L 500.2500 #### [facility] [address] [place], [address] Neutrophils/100 WBC (Bld) 55.8 % Normal 47-70 [facility] Comment on above: Performed By: #### L 500.2500 #### [facility] [address] [place], [address] Nucleated RBC (Bld) [#/Vol] 0 10*3/uL Normal 0-5 [facility] Comment on above: Performed By: #### L 500.2500 #### [facility] [address] [place], [address] Platelet mean volume (Bld) [Entitic vol] 11.8 fL Normal 6.2-12.0 [facility] Comment on above: Performed By: #### L 500.2500 #### [facility] [address] [place], [address] Platelets (Bld) [#/Vol] 245 10*3/uL Normal 150-450 [facility] Comment on above: Performed By: #### L 500.2500 #### [facility] [address] [place], [address] RBC (Bld) [#/Vol] 4.91 10*6/uL Normal 4.6-6.2 [facility] Comment on above: Performed By: #### L 500.2500 #### [facility] [address] [place], [address] RDW SD 47.2 fl High 35.1-43.9 [facility] Comment on above: Performed By: #### L 500.2500 #### [facility] [address] [place], [address] WBC (Bld) [#/Vol] 4.9 10*3/uL Normal 4.4-11.0 [facility] Comment on above: Performed By: #### L 500.2500 #### [facility] [address] [place], [address] Comprehensive Metabolic Prof [facility] 03-19-2024 Albumin [Mass/Vol] 3.4 g/dL Normal 3.2-5.0 [facility] Comment on above: Performed By: #### L 500.2500 #### [facility] [address] [place], [address] Albumin/Globulin [Mass ratio] 1.0 {ratio} Normal 0.9-2.4 [facility] Comment on above: Performed By: #### L 500.2500 #### [facility] [address] [place], [address] ALK P 83 U/L Normal 45-117 [facility] Comment on above: Performed By: #### L 500.2500 #### [facility] [address] [place], [address] ALT [Catalytic activity/Vol] 11 U/L Low 16-61 [facility] Comment on above: Performed By: #### L 500.2500 #### [facility] [address] [place], [address] AST [Catalytic activity/Vol] 10 U/L Low 15-37 [facility] Comment on above: Performed By: #### L 500.2500 #### [facility] [address] [place], [address] Bilirubin [Mass/Vol] 1.40 mg/dL High 0.20-1.00 [facility] Comment on above: Result Comment: For patients on eltrombopag therapy, use of Dimension Outing TBIL is not recommended. Performed By: #### L 500.2500 #### [facility] [address] [place], [address] BUN/CRE 14.5 RATIO Normal 10-20 [facility] Comment on above: Performed By: #### L 500.2500 #### [facility] [address] [place], [address] CA,Total 9.4 mg/dL Normal 8.5-10.1 [facility] Comment on above: Performed By: #### L 500.2500 #### [facility] [address] [place], [address] Chloride [Moles/Vol] 108 mmol/L High 98-107 [facility] Comment on above: Performed By: #### L 500.2500 #### [facility] [address] [place], [address] CO2 [Moles/Vol] 30.0 mmol/L Normal 21.0-32.0 [facility] Comment on above: Performed By: #### L 500.2500 #### [facility] [address] [place], [address] Creatinine [Mass/Vol] 0.90 mg/dL Normal 0.70-1.30 [facility] Comment on above: Result Comment: The validity of the calculated GFR GFRAA in patients over 70 years has not been determined. Clinical correlation is essential. Performed By: #### L 500.2500 #### [facility] [address] [place], [address] EST GFR - AA 104 mL/min Normal >60 [facility] Comment on above: Result Comment: Afri can [place] GFR Calc Performed By: #### L 500.2500 #### [facility] [address] [place], [address] GAP 1 Low 5-15 [facility] Comment on above: Performed By: #### L 500.2500 #### [facility] [address] [place], [address] GFR/1.73 sq M.predicted among non-blacks MDRD (S/P/Bld) [Vol rate/Area] 86 mL/min/{1.73_m2} Normal >60 [facility] Comment on above: Result Comment: Non- GFR Calc Performed By: #### L 500.2500 #### [facility] [address] [place], [address] Globulin (S) [Mass/Vol] 3.5 g/dL Normal 2.2-4.2 [facility] Comment on above: Performed By: #### L 500.2500 #### [facility] [address] [place], [address] Glucose [Mass/Vol] 99 mg/dL Normal 74-106 [facility] Comment on above: Performed By: #### L 500.2500 #### [facility] [address] [place], [address] Potassium [Moles/Vol] 4.6 mmol/L Normal 3.5-5.1 [facility] Comment on above: Performed By: #### L 500.2500 #### [facility] [address] [place], [address] Sodium [Moles/Vol] 139 mmol/L Normal 136-145 [facility] Comment on above: Performed By: #### L 500.2500 #### [facility] [address] [place], [address] T PROT 6.9 g/dL Normal 6.4-8.2 [facility] Comment on above: Performed By: #### L 500.2500 #### [facility] [address] [place], [address] Urea nitrogen [Mass/Vol] 13 mg/dL Normal 7-18 [facility] Comment on above: Performed By: #### L 500.2500 #### [facility] [address] [place], [address] Lipid Profileon 03-19-2024 Cholesterol [Mass/Vol] 174 mg/dL Normal 200 [facility] Comment on above: Result Comment: <200 mg/dL Desirable 200-240 mg/dL Borderline >240 mg/dL High Risk Performed By: #### L 100.0500 #### [facility] [address] [place], [address] Cholesterol in HDL [Mass/Vol] 59 mg/dL Normal [facility] Comment on above: Result Comment: The drugs N-Acetylcysteine and Metamizole may falsely depress this assay. Reference Range HDL <40 mg/dL Low HDL Cholesterol HDL >or= 60 mg/dL High HDL Cholesterol Performed By: #### L 100.0500 #### [facility] [address] [place], [address] Cholesterol in LDL [Mass/Vol] 94 mg/dL Normal 0-130 [facility] Comment on above: Performed By: #### L 100.0500 #### [facility] [address] [place], [address] Cholesterol in VLDL [Mass/Vol] 21 mg/dL Normal 5-40 [facility] Comment on above: Performed By: #### L 100.0500 #### [facility] [address] [place], [place], [address] Triglyceride [Mass/Vol] 103 mg/dL Normal [facility] Comment on above: Result Comment: The drugs N-Acetylcysteine and Metamizole may falsely depress this assay. Serum Triglycerides Reference Interval Normal <150 mg/dL Borderline high 150 - 199 mg/dL High 200 - 499 mg/dL Very High > or = 500 mg/dL Performed By: #### L 100.0500 #### [facility] [address] [place], [place], [address] Culture, urineOrdered By: Ra jose c Degroot on 07-28-2023 Bacteria identified Cx Nom (U) Culture exhibits no growth. [facility] Basophil percentageOrdered B y: Claudette Fernandez on 07-25-2023 Lactate [Moles/Vol] 1.3 mmol/L 0.4-2.0 [facility] Absolute lymphocyte countOrd ered By: Claudette Fernandez on 07-24-2023 Lymphocytes Auto (Unsp spec) [#/Vol] 0.60 10*3/uL 0.83-4.51 [facility] Activated partial thrombopla stin time (aPTT) in platelet poor plasma by coagulation aOrdered By: Claudette Fernandez on 07-24-2023 aPTT Coag (PPP) [Time] 34.4 s 24.1-36.2 [facility] Automated lymphocyte count a s percentage of total leukocytesOrdered By: Claudette Fernandez on 07-24-2023 Lymphocytes/100 WBC Auto (Unsp spec) 5.0 % 19-41 [facility] Basophil percentageOrdered B y: Claudette Fernandez on 07-24-2023 Basophil percentage >100 SEEN /hpf 0-5 [facility] Comment on above: Microscopic field is filled. Other elements may be obscured. Basophils/100 WBC (Bld) 0.2 % 0-1 [facility] Bilirubin [Mass/Vol] 0.80 mg/dL 0.20-1.00 [facility] Comment on above: For patients on eltr ombopag therapy, use of Dimension Outing TBIL is not recommended. Chloride [Moles/Vol] 110 mmol/L 98-107 [facility] Eosinophils/100 WBC (Bld) 0.7 % 0-5 [facility] Glucose [Mass/Vol] 116 mg/dL 74-106 [facility] Comment on above: Fasting Glucose resu lt from 100 to 125 mg/dL suggests IMPAIRED HOMEOSTASIS per A.D.A. criteria. Hemoglobin (Bld) [Mass/Vol] 14.7 g/dL 13.0-16.5 [facility] Monocytes/100 WBC (Bld) 3.2 % 0-10 [facility] Neutrophils (Bld) [#/Vol] 10.8 10*3/uL 2.0-7.7 [facility] Neutrophils/100 WBC (Bld) 90.6 % 47-70 [facility] Potassium [Moles/Vol] 4.5 mmol/L 3.5-5.1 [facility] Comment on above: Slight Hemolysis, Re sult may be falsely increased. Protein [Mass/Vol] 7.0 g/dL 6.4-8.2 [facility] Sodium [Moles/Vol] 140 mmol/L 136-145 [facility] WBC (Bld) [#/Vol] 11.9 10*3/uL 4.4-11.0 [facility] Bilirubin Test strip Ql (U)O rdered By: Claudette Fernandez on 07-24-2023 Bilirubin Ql (U) Negative Negative [facility] Blood manual differential co mment interpretation (narrative result)Ordered By: Claudette Fernandez on 07-24-2023 Manual differential comment Venkat (Bld) [Interp] SCANNED [facility] Comment on above: LYMPHOPENIA NOTED Culture, urineOrdered By: Joe Fernandez on 07-24-2023 Bacteria identified Cx Nom (U) Escherichia coli [facility] Determination of erythrocyte mean corpuscular volume (MCV)Ordered By: Claudette Fernandez on 07-24-2023 MCV (RBC) [Entitic vol] 91.6 fL 80-94 [facility] Erythrocyte distribution wid th ratioOrdered By: Claudette Fernandez on 07-24-2023 Erythrocyte distribution width (RBC) [Ratio] 13.4 % 11.6-14.6 [facility] Erythrocyte distribution wid th standard deviationOrdered By: Claudette Fernandez on 07-24-2023 Erythrocyte distribution width (RBC) [Entitic vol] 45.8 fL 35.1-43.9 [facility] Hematocrit Auto (Bld) [Volum e fraction]Ordered By: Claudette Fernandez on 07-24-2023 Hematocrit (Bld) [Volume fraction] 46.0 % 40-54 [facility] Immature granulocytes/100 WB C Auto (Bld)Ordered By: Claudette Fernandez on 07-24-2023 Immature granulocytes/100 WBC (Bld) 0.300 % 0.0-0.9 [facility] Comment on above: IG% - Immature Granu locytes (promyelocytes, myelocytes and metamyelocytes) > 1% indicates that a LEFT SHIFT is Present. International normalized rat io (INR) calculationOrdered By: Claudette Fernandez on 07-24-2023 INR Coag (PPP) [Relative time] 1.9 {INR} [facility] Ketones Test strip Ql (U)Ord ered By: Claudette Fernandez on 07-24-2023 Ketones Ql (U) 5 mg/dl Negative [facility] Laboratory - Chemistry and C hemistry - challengeOrdered By: Claudette Fernandez on 07-24-2023 Albumin/Globulin [Mass ratio] 0.9 {ratio} 0.9-2.4 [facility] ALP [Catalytic activity/Vol] 84 U/L 45-117 [facility] ALT [Catalytic activity/Vol] 15 U/L 16-61 [facility] CO2 [Moles/Vol] 23.0 mmol/L 21.0-32.0 [facility] Globulin (S) [Mass/Vol] 3.6 g/dL 2.2-4.2 [facility] Urea nitrogen/Creatinine [Mass ratio] 16.4 mg/mg 10-20 [facility] Laboratory - CoagulationOrde red By: Claudette Fernandez on 07-24-2023 PT Coag (PPP) [Time] 21.5 s 11.7-14.9 [facility] Laboratory - Hematology and Cell countsOrdered By: Claudette Fernandez on 07-24-2023 MCH (RBC) [Entitic mass] 29.3 pg 27.0-32.0 [facility] MCHC (RBC) [Mass/Vol] 32.0 g/dL 32-36 [facility] Nucleated RBC/100 WBC (Bld) [Ratio] 0 % 0-5 [facility] Platelets (Bld) [#/Vol] 194 10*3/uL 150-450 [facility] Laboratory - Microbiology an d Antimicrobial susceptibilityOrdered By: Claudette Fernandez on 07-24-2023 Bacteria identified Cx Nom (Bld) No growth in 5 days. [facility] SARS-CoV-2 (COVID-19) RNA ROLANDO+probe Ql (Unsp spec) [facility] Mucus LM Ql (Urine sed)Order ed By: Claudette Fernandez on 07-24-2023 Mucus Ql (Urine sed) 0 SEEN /hpf [facility] Nitrite Test strip Ql (U)Ord ered By: Claudette Fernandez on 07-24-2023 Nitrite Ql (U) Negative Negative [facility] No Panel InformationOrdered By: Claudette Fernandez on 07-24-2023 Estimated Creatinine Clearance Calc 62.95 ml/min [facility] Estimated GFR (MDRD) Amer 83 mL/min >60 [facility] Comment on above: GFR Calc Estimated GFR (MDRD) Non-Af Amer 68 mL/min >60 [facility] Comment on above: Non- GFR Calc Urine RBC 5-10 SEEN /hpf 0-5 [facility] Platelet mean volume Sd-Ec ker (Bld) [Entitic vol]Ordered By: Claudette Fernandez on 07-24-2023 Platelet mean volume (Bld) [Entitic vol] 12.3 fL 6.2-12.0 [facility] Protein Test strip Ql (U)Ord ered By: Claudette Fernandez on 07-24-2023 Protein Ql (U) 30 mg/dl Negative [facility] RBC Auto (Bld) [#/Vol]Ordere d By: Claudette Fernandez on 07-24-2023 RBC (Bld) [#/Vol] 5.02 10*6/uL 4.6-6.2 [facility] Serum or plasma calcium anthony urement (mass/volume)Ordered By: Claudette Fernandez on 07-24-2023 Calcium [Mass/Vol] 9.0 mg/dL 8.5-10.1 [facility] Serum or plasma creatinine m easurement (mass/volume)Ordered By: Claudette Fernandez on 07-24-2023 Creatinine [Mass/Vol] 1.10 mg/dL 0.70-1.30 [facility] Comment on above: The validity of the calculated GFR & GFRAA in patients over 70 years has not been determined. Clinical correlation is essential. Serum or plasma urea nitroge n measurement (mass/volume)Ordered By: Claudette Fernandez on 07-24-2023 Urea nitrogen [Mass/Vol] 18 mg/dL 7-18 [facility] Squamous epithelial cells de tection in urine sediment by light microscopyOrdered By: Claudette Fernandez on 07-24-2023 Epithelial cells.squamous LM Ql (Urine sed) 0-5 SEEN /hpf 0-5 [facility] Thin prep Papanicolaou smear with manual screeningOrdered By: Claudette Fernandez on 07-24-2023 Thin prep Papanicolaou smear with manual screening 3.4 g/dL 3.2-5.0 [facility] Thin prep Papanicolaou smear with manual screening 12 U/L 15-37 [facility] Comment on above: Slight Hemolysis, Re sult may be falsely increased. Thin prep Papanicolaou smear with manual screening 7 5-15 [facility] Urine blood detectionOrdered By: Claudette Fernandez on 07-24-2023 RBC Ql (U) 150 /ul Negative [facility] Urine clarityOrdered By: Kirsten Fernandez on 07-24-2023 Clarity (U) Cloudy Clear [facility] Urine color determinationOrd ered By: Claudette Fernandez on 07-24-2023 Color (U) Yellow Yellow [facility] Urine glucose detectionOrder ed By: Claudette Fernandez on 07-24-2023 Glucose Ql (U) Normal mg/dl Normal [facility] Urine leukocyte esterase det ection by dipstickOrdered By: Claudette Fernandez on 07-24-2023 Leukocyte esterase Test strip Ql (U) 500 /ul Negative [facility] Urine pHOrdered By: Claudette olivares on 07-24-2023 pH (U) 6.0 [pH] 5.0 - 8.0 [facility] Urine sediment bacteria coun t by microscopy (number/high power field)Ordered By: Claudette Fernandez on 07-24-2023 Bacteria LM.HPF (Urine sed) [#/Area] 4 /[HPF] None Seen [facility] Urine specific gravity measu rementOrdered By: Claudette Fernandez on 07-24-2023 Specific gravity (U) [Rel density] 1.020 1.002-1.030 [facility] Urine urobilinogen measureme ntOrdered By: Claudette Fernandez on 07-24-2023 Urobilinogen Ql (U) 4 mg/dl Normal [facility] Basophil percentageOrdered B y: Ankit Alvarenga on 06-22-2023 Chloride [Moles/Vol] 105 mmol/L 98-107 [facility] Glucose [Mass/Vol] 107 mg/dL 74-106 [facility] Comment on above: Fasting Glucose resu lt from 100 to 125 mg/dL suggests IMPAIRED HOMEOSTASIS per A.D.A. criteria. Potassium [Moles/Vol] 4.6 mmol/L 3.5-5.1 [facility] Sodium [Moles/Vol] 138 mmol/L 136-145 [facility] WBC (Bld) [#/Vol] 5.4 10*3/uL 4.4-11.0 [facility] Blood erythrocytes count (nu mber/volume)Ordered By: Ankit Alvarenga on 06-22-2023 RBC (Bld) [#/Vol] 4.79 10*6/uL 4.6-6.2 [facility] Blood hemoglobin measurement (mass/volume)Ordered By: Ankit Alvarenga on 06-22-2023 Hemoglobin (Bld) [Mass/Vol] 14.1 g/dL 13.0-16.5 [facility] Blood platelet mean volumeOr dered By: Ankit Alvarenga on 06-22-2023 Platelet mean volume (Bld) [Entitic vol] 11.6 fL 6.2-12.0 [facility] Determination of erythrocyte mean corpuscular volume (MCV)Ordered By: Ankit Alvarenga on 06-22-2023 MCV (RBC) [Entitic vol] 93.9 fL 80-94 [facility] Hematocrit Auto (Bld) [Volum e fraction]Ordered By: Ankit Alvarenga on 06-22-2023 Hematocrit (Bld) [Volume fraction] 45.0 % 40-54 [facility] Laboratory - Chemistry and C hemistry - challengeOrdered By: Ankit Alvarenga on 06-22-2023 CO2 [Moles/Vol] 30.0 mmol/L 21.0-32.0 [facility] Urea nitrogen/Creatinine [Mass ratio] 13.8 mg/mg 10-20 [facility] Laboratory - Hematology and Cell countsOrdered By: Ankit Alvarenga on 06-22-2023 Erythrocyte distribution width (RBC) [Entitic vol] 45.0 fL 35.1-43.9 [facility] Erythrocyte distribution width (RBC) [Ratio] 13.0 % 11.6-14.6 [facility] MCH (RBC) [Entitic mass] 29.4 pg 27.0-32.0 [facility] MCHC Auto (RBC) [Mass/Vol]Or dered By: Ankit Alvarenga on 06-22-2023 MCHC (RBC) [Mass/Vol] 31.3 g/dL 32-36 [facility] No Panel InformationOrdered By: Ankit Alvarenga on 06-22-2023 Estimated Creatinine Clearance Calc 59.69 ml/min [facility] Estimated GFR (MDRD) Amer 78 mL/min >60 [facility] Comment on above: GFR Calc Estimated GFR (MDRD) Non-Af Amer 64 mL/min >60 [facility] Comment on above: Non- GFR Calc Platelets bldOrdered By: Judtih Alvarenga on 06-22-2023 Platelets (Bld) [#/Vol] 252 10*3/uL 150-450 [facility] Serum or plasma calcium anthony urement (mass/volume)Ordered By: Ankit Alvarenga on 06-22-2023 Calcium [Mass/Vol] 9.3 mg/dL 8.5-10.1 [facility] Serum or plasma creatinine m easurement (mass/volume)Ordered By: Ankit Alvarenga on 06-22-2023 Creatinine [Mass/Vol] 1.16 mg/dL 0.70-1.30 [facility] Comment on above: The validity of the calculated GFR & GFRAA in patients over 70 years has not been determined. Clinical correlation is essential. Serum or plasma urea nitroge n measurement (mass/volume)Ordered By: Ankit Alvarenga on 06-22-2023 Urea nitrogen [Mass/Vol] 16 mg/dL 7-18 [facility] Thin prep Papanicolaou smear with manual screeningOrdered By: Ankit Alvarenga on 06-22-2023 Thin prep Papanicolaou smear with manual screening 3 5-15 [facility] Basophil percentageOrdered B y: Spenser Estrada on 04-13-2023 Creatinine [Mass/Vol] 1.3 mg/dL 0.70-1.30 [facility] Laboratory - Chemistry and C hemistry - challengeOrdered By: Spenser Estrada on 04-13-2023 GFR/1.73 sq M.predicted among non-blacks MDRD (S/P/Bld) [Vol rate/Area] 54.0000 mL/min/{1.73_m2} >60 [facility] Absolute lymphocyte countOrd ered By: Briseida Vergara on 03-16-2023 Lymphocytes Auto (Unsp spec) [#/Vol] 1.15 10*3/uL 0.83-4.51 [facility] Basophil percentageOrdered B y: Briseida Vergara on 03-16-2023 Basophils/100 WBC (Bld) 1.0 % 0-1 [facility] Cholesterol [Mass/Vol] 208 mg/dL <200 [facility] Comment on above: <200 mg/dL Desirable 200-240 mg/dL Borderline >240 mg/dL High Risk Eosinophils/100 WBC (Bld) 3.9 % 0-5 [facility] Neutrophils (Bld) [#/Vol] 3.2 10*3/uL 2.0-7.7 [facility] Neutrophils/100 WBC (Bld) 61.7 % 47-70 [facility] Triglyceride [Mass/Vol] 129 mg/dL <199 [facility] Comment on above: The drugs N-Acetylcy steine and Metamizole may falsely depress this assay.Serum Triglycerides Reference Interval Normal <150 mg/dL Borderline high 150 - 199 mg/dL High 200 - 499 mg/dL Very High > or = 500 mg/dL WBC (Bld) [#/Vol] 5.2 10*3/uL 4.4-11.0 [facility] Blood erythrocytes count (nu mber/volume)Ordered By: Briseida Vergara on 03-16-2023 RBC (Bld) [#/Vol] 4.59 10*6/uL 4.6-6.2 [facility] Blood hemoglobin measurement (mass/volume)Ordered By: Briseida Vergara on 03-16-2023 Hemoglobin (Bld) [Mass/Vol] 14.3 g/dL 13.0-16.5 [facility] Blood lymphocytes/100 leukoc ytesOrdered By: Briseida Vergara on 03-16-2023 Lymphocytes/100 WBC (Bld) 22.2 % 19-41 [facility] Blood monocytes/100 leukocyt esOrdered By: Briseida Vergara on 03-16-2023 Monocytes/100 WBC (Bld) 10.8 % 0-10 [facility] Blood platelet mean volumeOr dered By: Briseida Vergara on 03-16-2023 Platelet mean volume (Bld) [Entitic vol] 12.2 fL 6.2-12.0 [facility] Determination of erythrocyte mean corpuscular volume (MCV)Ordered By: Briseida Vergara on 03-16-2023 MCV (RBC) [Entitic vol] 98.3 fL 80-94 [facility] Hematocrit Auto (Bld) [Volum e fraction]Ordered By: Briseida Vergara on 03-16-2023 Hematocrit (Bld) [Volume fraction] 45.1 % 40-54 [facility] Laboratory - Hematology and Cell countsOrdered By: Briseida Vergara on 03-16-2023 Erythrocyte distribution width (RBC) [Entitic vol] 46.5 fL 35.1-43.9 [facility] Erythrocyte distribution width (RBC) [Ratio] 12.9 % 11.6-14.6 [facility] Immature granulocytes/100 WBC (Bld) 0.400 % 0.0-0.9 [facility] Comment on above: IG% - Immature Granu locytes (promyelocytes, myelocytes and metamyelocytes) > 1% indicates that a LEFT SHIFT is Present. MCH (RBC) [Entitic mass] 31.2 pg 27.0-32.0 [facility] Nucleated RBC/100 WBC (Bld) [Ratio] 0 % 0-5 [facility] MCHC Auto (RBC) [Mass/Vol]Or dered By: Briseida Vergara on 03-16-2023 MCHC (RBC) [Mass/Vol] 31.7 g/dL 32-36 [facility] Platelets bldOrdered By: Sixto Vergara on 03-16-2023 Platelets (Bld) [#/Vol] 247 10*3/uL 150-450 [facility] Serum or plasma cholesterol in HDL measurement (mass/volume)Ordered By: Briseida Vergara on 03-16-2023 Cholesterol in HDL [Mass/Vol] 53 mg/dL >40 [facility] Comment on above: The drugs N-Acetylcy steine and Metamizole may falsely depress this assay. Reference Range HDL <40 mg/dL Low HDL Cholesterol HDL >or= 60 mg/dL High HDL Cholesterol Serum or plasma cholesterol in VLDL measurement (mass/volume)Ordered By: Briseida Vergara on 03-16-2023 Cholesterol in VLDL [Mass/Vol] 26 mg/dL 5-40 [facility] Serum or plasma low density lipoprotein (LDL) cholesterol measurement (mass/volume)Ordered By: Briseida Vergara on 03-16-2023 Cholesterol in LDL [Mass/Vol] 129 mg/dL 0-130 [facility] Basophil percentageOrdered B y: Kimberly Kennedy on 01-31-2023 Bilirubin [Mass/Vol] 0.90 mg/dL 0.20-1.00 [facility] Comment on above: For patients on eltr ombopag therapy, use of Dimension Outing TBIL is not recommended. Chloride [Moles/Vol] 107 mmol/L 98-107 [facility] Glucose [Mass/Vol] 97 mg/dL 74-106 [facility] Potassium [Moles/Vol] 4.3 mmol/L 3.5-5.1 [facility] Protein [Mass/Vol] 6.7 g/dL 6.4-8.2 [facility] Sodium [Moles/Vol] 138 mmol/L 136-145 [facility] Laboratory - Chemistry and C hemistry - challengeOrdered By: Kimberly Kennedy on 01-31-2023 ALP [Catalytic activity/Vol] 102 U/L 45-117 [facility] ALT [Catalytic activity/Vol] 19 U/L 16-61 [facility] CO2 [Moles/Vol] 27.0 mmol/L 21.0-32.0 [facility] Globulin (S) [Mass/Vol] 3.7 g/dL 2.2-4.2 [facility] Urea nitrogen/Creatinine [Mass ratio] 13.8 mg/mg 10-20 [facility] No Panel InformationOrdered By: Kimberly Kennedy on 01-31-2023 Estimated GFR (MDRD) Amer 84 mL/min >60 [facility] Comment on above: GFR Calc Estimated GFR (MDRD) Non-Af Amer 69 mL/min >60 [facility] Comment on above: Non- GFR Calc Thyroid Stimulating Hormone (TSH) 1.97 uIU/mL 0.358-3.74 [facility] Serum or plasma albumin anthony urement (mass/volume)Ordered By: Kimberly Kennedy on 01-31-2023 Albumin [Mass/Vol] 3.0 g/dL 3.2-5.0 [facility] Serum or plasma albumin/glob ulin mass ratioOrdered By: Kimberly Kennedy on 01-31-2023 Albumin/Globulin [Mass ratio] 0.8 {ratio} 0.9-2.4 [facility] Serum or plasma calcium anthony urement (mass/volume)Ordered By: Kimberly Kennedy on 01-31-2023 Calcium [Mass/Vol] 8.7 mg/dL 8.5-10.1 [facility] Serum or plasma creatinine m easurement (mass/volume)Ordered By: Kimberly Kennedy on 01-31-2023 Creatinine [Mass/Vol] 1.09 mg/dL 0.70-1.30 [facility] Comment on above: The validity of the calculated GFR & GFRAA in patients over 70 years has not been determined. Clinical correlation is essential. Serum or plasma urea nitroge n measurement (mass/volume)Ordered By: Kimberly Kennedy on 01-31-2023 Urea nitrogen [Mass/Vol] 15 mg/dL 7-18 [facility] Thin prep Papanicolaou smear with manual screeningOrdered By: Kimberly Kennedy on 01-31-2023 Thin prep Papanicolaou smear with manual screening 13 U/L 15-37 [facility] Thin prep Papanicolaou smear with manual screening 4 5-15 [facility] Absolute lymphocyte counton 09-29-2021 Lymphocytes Auto (Unsp spec) [#/Vol] 1.05 10*3/uL 0.83-4.51 [facility] Work Phone: Basophil percentageon 2021 Basophil percentage 5-10 SEEN /hpf [facility] Work Phone: Basophils/100 WBC (Bld) 0.3 % 0-1 [facility] Work Phone: Chloride [Moles/Vol] 104 mmol/L 98-107 [facility] Work Phone: Eosinophils/100 WBC (Bld) 2.2 % 0-5 [facility] Work Phone: Glucose [Mass/Vol] 118 mg/dL 74-106 [facility] Work Phone: Comment on above: Fasting Glucose resu lt from 100 to 125 mg/dL suggests IMPAIRED HOMEOSTASIS per A.D.A. criteria. Neutrophils (Bld) [#/Vol] 8.4 10*3/uL 2.0-7.7 [facility] Work Phone: Neutrophils/100 WBC (Bld) 80.0 % 47-70 [facility] Work Phone: Potassium [Moles/Vol] 4.1 mmol/L 3.5-5.1 [facility] Work Phone: Sodium [Moles/Vol] 137 mmol/L 136-145 [facility] Work Phone: WBC (Bld) [#/Vol] 10.4 10*3/uL 4.4-11.0 [facility] Work Phone: Bilirubin Test strip Ql (U)o n 09-29-2021 Bilirubin Ql (U) Negative Negative [facility] Work Phone: Blood erythrocytes count (nu mber/volume)on 09-29-2021 RBC (Bld) [#/Vol] 4.53 10*6/uL 4.6-6.2 [facility] Work Phone: Blood hemoglobin measurement (mass/volume)on 09-29-2021 Hemoglobin (Bld) [Mass/Vol] 14.6 g/dL 13.0-16.5 [facility] Work Phone: Blood lymphocytes/100 leukoc yteson 09-29-2021 Lymphocytes/100 WBC (Bld) 10.1 % 19-41 [facility] Work Phone: Blood monocytes/100 leukocyt eson 09-29-2021 Monocytes/100 WBC (Bld) 7.0 % 0-10 [facility] Work Phone: Blood platelet mean volumeon 09-29-2021 Platelet mean volume (Bld) [Entitic vol] 11.9 fL 6.2-12.0 [facility] Work Phone: Determination of erythrocyte mean corpuscular volume (MCV)on 09-29-2021 MCV (RBC) [Entitic vol] 95.8 fL 80-94 [facility] Work Phone: Hematocrit Auto (Bld) [Volum e fraction]on 09-29-2021 Hematocrit (Bld) [Volume fraction] 43.4 % 40-54 [facility] Work Phone: Ketones Test strip Ql (U)on 09-29-2021 Ketones Ql (U) 15 mg/dl Negative [facility] Work Phone: Laboratory - Chemistry and C hemistry - challengeon 09-29-2021 CO2 [Moles/Vol] 29.0 mmol/L 21.0-32.0 [facility] Work Phone: [phone] Urea nitrogen/Creatinine [Mass ratio] 15.3 mg/mg 10-20 [facility] Work Phone: [phone] Laboratory - Hematology and Cell countson 09-29-2021 Erythrocyte distribution width (RBC) [Entitic vol] 43.1 fL 35.1-43.9 [facility] Work Phone: [phone] Erythrocyte distribution width (RBC) [Ratio] 12.1 % 11.6-14.6 [facility] Work Phone: [phone] Immature granulocytes/100 WBC (Bld) 0.400 % 0.0-0.9 [facility] Work Phone: [phone] Comment on above: IG% - Immature Granu locytes (promyelocytes, myelocytes and metamyelocytes) > 1% indicates that a LEFT SHIFT is Present. MCH (RBC) [Entitic mass] 32.2 pg 27.0-32.0 [facility] Work Phone: [phone] Nucleated RBC/100 WBC (Bld) [Ratio] 0 % 0-5 [facility] Work Phone: [phone] MCHC Auto (RBC) [Mass/Vol]on 09-29-2021 MCHC (RBC) [Mass/Vol] 33.6 g/dL 32-36 [facility] Work Phone: [phone] Mucus LM Ql (Urine sed)on Mucus Ql (Urine sed) 0 SEEN /hpf [facility] Work Phone: [phone] Nitrite Test strip Ql (U)on 09-29-2021 Nitrite Ql (U) Negative Negative [facility] Work Phone: [phone] No Panel Informationon 09-29 Estimated Creatinine Clearance Calc 57.73 ml/min [facility] Work Phone: [phone] Estimated GFR (MDRD) Amer 72 mL/min >60 [facility] Work Phone: [phone] Comment on above: GFR Calc Estimated GFR (MDRD) Non-Af Amer 60 mL/min >60 [facility] Work Phone: Comment on above: Non- GFR Calc Platelets bldon 09-29-2021 Platelets (Bld) [#/Vol] 299 10*3/uL 150-450 [facility] Work Phone: Protein Test strip Ql (U)on 09-29-2021 Protein Ql (U) 500 mg/dl Negative [facility] Work Phone: [phone] Serum or plasma calcium anthony urement (mass/volume)on 09-29-2021 Calcium [Mass/Vol] 8.8 mg/dL 8.5-10.1 oste r [facility] Work Phone: Serum or plasma creatinine m easurement (mass/volume)on 09-29-2021 Creatinine [Mass/Vol] 1.24 mg/dL 0.70-1.30 [place] [facility] Work Phone: Comment on above: The validity of the calculated GFR & GFRAA in patients over 70 years has not been determined. Clinical correlation is essential. Serum or plasma urea nitroge n measurement (mass/volume)on 09-29-2021 Urea nitrogen [Mass/Vol] 19 mg/dL 7-18 [facility] Work Phone: Squamous epithelial cells de tection in urine sediment by light microscopyon 09-29-2021 Epithelial cells.squamous LM Ql (Urine sed) 0 SEEN /hpf [facility] Work Phone: Thin prep Papanicolaou smear with manual screeningon 09-29-2021 Thin prep Papanicolaou smear with manual screening 4 5-15 [facility] Work Phone: Urine blood detectionon 04-0 RBC Ql (U) 150 /ul Negative [facility] Work Phone: [phone] RBC Ql (U) > 100 SEEN /hpf [facility] Work Phone: [phone] Urine clarityon 09-29-2021 Clarity (U) Turbid Clear [facility] Work Phone: Urine color determinationon 09-29-2021 Color (U) Red Yellow [facility] Work Phone: Urine glucose detectionon Glucose Ql (U) Normal mg/dl Normal [facility] Work Phone: Urine leukocyte esterase det ection by dipstickon 09-29-2021 Leukocyte esterase Test strip Ql (U) Negative Negative [facility] Work Phone: Urine pHon 09-29-2021 pH (U) 7.0 [pH] [facility] Work Phone: [phone] Urine sediment bacteria coun t by microscopy (number/high power field)on 09-29-2021 Bacteria LM.HPF (Urine sed) [#/Area] 0 /[HPF] None Seen [facility] Work Phone: Urine specific gravity measu rementon 09-29-2021 Specific gravity (U) [Rel density] 1.010 [facility] Work Phone: Urobilinogen Auto test strip Ql (U)on 09-29-2021 Urobilinogen Ql (U) Normal mg/dl Normal [facility] Work Phone: Basophil percentageon 2021 Chloride [Moles/Vol] 108 mmol/L 98-107 [facility] Work Phone: [phone] Glucose [Mass/Vol] 111 mg/dL 74-106 [facility] Work Phone: Comment on above: Fasting Glucose resu lt from 100 to 125 mg/dL suggests IMPAIRED HOMEOSTASIS per A.D.A. criteria. Potassium [Moles/Vol] 4.1 mmol/L 3.5-5.1 [facility] Work Phone: Sodium [Moles/Vol] 139 mmol/L 136-145 [facility] Work Phone: [phone] WBC (Bld) [#/Vol] 6.0 10*3/uL 4.4-11.0 [facility] Work Phone: Blood erythrocytes count (nu mber/volume)on 09-06-2021 RBC (Bld) [#/Vol] 4.74 10*6/uL 4.6-6.2 [facility] Work Phone: Blood hemoglobin measurement (mass/volume)on 09-06-2021 Hemoglobin (Bld) [Mass/Vol] 15.1 g/dL 13.0-16.5 [facility] Work Phone: Blood platelet mean volumeon 09-06-2021 Platelet mean volume (Bld) [Entitic vol] 11.9 fL 6.2-12.0 [facility] Work Phone: Determination of erythrocyte mean corpuscular volume (MCV)on 09-06-2021 MCV (RBC) [Entitic vol] 99.4 fL 80-94 [facility] Work Phone: Hematocrit Auto (Bld) [Volum e fraction]on 09-06-2021 Hematocrit (Bld) [Volume fraction] 47.1 % 40-54 [facility] Work Phone: Laboratory - Chemistry and C hemistry - challengeon 09-06-2021 CO2 [Moles/Vol] 26.0 mmol/L 21.0-32.0 [facility] Work Phone: Urea nitrogen/Creatinine [Mass ratio] 13.3 mg/mg 10-20 [facility] Work Phone: Laboratory - Hematology and Cell countson 09-06-2021 Erythrocyte distribution width (RBC) [Entitic vol] 47.5 fL 35.1-43.9 [facility] Work Phone: [phone] Erythrocyte distribution width (RBC) [Ratio] 12.9 % 11.6-14.6 [facility] Work Phone: MCH (RBC) [Entitic mass] 31.9 pg 27.0-32.0 [facility] Work Phone: [phone] MCHC Auto (RBC) [Mass/Vol]on 09-06-2021 MCHC (RBC) [Mass/Vol] 32.1 g/dL 32-36 [facility]: No Panel Informationon 09-06 Estimated GFR (MDRD) Amer 75 mL/min >60 [facility] Work Phone: Comment on above: GFR Calc Estimated GFR (MDRD) Non-Af Amer 62 mL/min >60 [facility] Work Phone: Comment on above: Non- GFR Calc Platelets bldon 09-06-2021 Platelets (Bld) [#/Vol] 246 10*3/uL 150-450 [facility] Work Phone: [phone] Serum or plasma calcium anthony urement (mass/volume)on 09-06-2021 Calcium [Mass/Vol] 8.7 mg/dL 8.5-10.1 [facility] Work Phone: [phone] Serum or plasma creatinine m easurement (mass/volume)on 09-06-2021 Creatinine [Mass/Vol] 1.20 mg/dL 0.70-1.30 [facility] Work Phone: Comment on above: The validity of the calculated GFR & GFRAA in patients over 70 years has not been determined. Clinical correlation is essential. Serum or plasma urea nitroge n measurement (mass/volume)on 09-06-2021 Urea nitrogen [Mass/Vol] 16 mg/dL 7-18 [facility] Work Phone: Thin prep Papanicolaou smear with manual screeningon 09-06-2021 Thin prep Papanicolaou smear with manual screening 5 5-15 [facility] Work Phone: Basophil percentageon 2021 Basophil percentage 50-100 SEEN /hpf [facility] Work Phone: [phone] Bilirubin Test strip Ql (U)o n 07-26-2021 Bilirubin Ql (U) Negative Negative [facility] Work Phone: [phone] Culture, urineon 07-26-2021 Bacteria identified Cx Nom (U) Escherichia coli [facility] Work Phone: [phone] Bacteria identified Cx Nom (U) Pseudomonas aeroginosa [facility] Work Phone: [phone] Ketones Test strip Ql (U)on 07-26-2021 Ketones Ql (U) Negative Negative [facility] Work Phone: Laboratory - Chemistry and C hemistry - challengeon 07-26-2021 Bilirubin Ql (U) Negative [facility] Work Phone: Glucose Ql (U) Negative [facility] Work Phone: Ketones Ql (U) Moderate (40+) [facility] Work Phone: pH (U) 6.0 [pH] [facility] Work Phone: Specific gravity (U) [Rel density] 1.015 [facility] Work Phone: [phone] Urobilinogen (U) [Mass/Vol] Negative [facility] Work Phone: Laboratory - Hematology and Cell countson 07-26-2021 Hemoglobin Ql (U) Hemolyzed [facility] Work Phone: Laboratory - Specimen inform ationon 07-26-2021 Clarity (U) Cloudy [facility] Work Phone: Color (U) DARK YELLOW [facility] Work Phone: Laboratory - Urinalysison Nitrite Ql (U) Positive [facility] Work Phone: Protein Ql (U) 1+ [facility] Work Phone: Mucus LM Ql (Urine sed)on Mucus Ql (Urine sed) 0 SEEN /hpf [facility] Work Phone: Nitrite Test strip Ql (U)on 07-26-2021 Nitrite Ql (U) Negative Negative [facility] Work Phone: No Panel Informationon 07-26 Urine Leukocytes Positive [facility] Work Phone: [phone] Urine Non-Hemolyzed Blood Large [facility] Work Phone: [phone] Protein Test strip Ql (U)on 07-26-2021 Protein Ql (U) 30 mg/dl Negative [facility] Work Phone: Squamous epithelial cells de tection in urine sediment by light microscopyon 07-26-2021 Epithelial cells.squamous LM Ql (Urine sed) 0 SEEN /hpf [facility] Work Phone: Urine blood detectionon 06-28 RBC Ql (U) 250 /ul Negative [facility] Work Phone: [phone] RBC Ql (U) 0-5 SEEN /hpf [facility] Work Phone: Urine clarityon 07-26-2021 Clarity (U) Sl. Cloudy Clear [facility] Work Phone: [phone] Urine color determinationon 07-26-2021 Color (U) Yellow Yellow [facility] Work Phone: [phone] Urine glucose detectionon Glucose Ql (U) Normal mg/dl Normal [facility] Work Phone: [phone] Urine leukocyte esterase det ection by dipstickon 07-26-2021 Leukocyte esterase Test strip Ql (U) 500 /ul Negative [facility] Work Phone: Urine pHon 07-26-2021 pH (U) 6.0 [pH] [facility] Work Phone: [phone] Urine sediment bacteria coun t by microscopy (number/high power field)on 07-26-2021 Bacteria LM.HPF (Urine sed) [#/Area] 4 /[HPF] None Seen [facility] Work Phone: Urine specific gravity measu rementon 07-26-2021 Specific gravity (U) [Rel density] 1.010 [facility] Work Phone: Urobilinogen Auto test strip Ql (U)on 07-26-2021 Urobilinogen Ql (U) 1 mg/dl Normal [facility] Work Phone: Basophil percentageon 2021 Basophil percentage >100 SEEN /hpf [facility] Work Phone: Bilirubin Test strip Ql (U)o n 07-07-2021 Bilirubin Ql (U) Negative Negative [facility] Work Phone: Culture, urineon 07-07-2021 Bacteria identified Cx Nom (U) Presumptive E. coli [facility] Work Phone: Ketones Test strip Ql (U)on 07-07-2021 Ketones Ql (U) Negative Negative [facility] Work Phone: Laboratory - Chemistry and C hemistry - challengeon 07-07-2021 Bilirubin Ql (U) Negative [facility] Work Phone: Glucose Ql (U) Negative [facility] Work Phone: Ketones Ql (U) Small (15+) [facility] Work Phone: pH (U) 5 [pH] [facility] Work Phone: Specific gravity (U) [Rel density] 1.020 [facility] Work Phone: Urobilinogen (U) [Mass/Vol] Negative [facility] Work Phone: Laboratory - Hematology and Cell countson 07-07-2021 Hemoglobin Ql (U) Hemolyzed [facility] Work Phone: Laboratory - Specimen inform ationon 07-07-2021 Clarity (U) Cloudy [facility] Work Phone: Color (U) ORANGE [facility] Work Phone: Laboratory - Urinalysison Nitrite Ql (U) Positive [facility] Work Phone: Protein Ql (U) 1+ [facility] Work Phone: Mucus LM Ql (Urine sed)on Mucus Ql (Urine sed) 0 SEEN /hpf [facility] Work Phone: Nitrite Test strip Ql (U)on 07-07-2021 Nitrite Ql (U) Positive Negative [facility] Work Phone: No Panel Informationon 07-07 Urine Leukocytes Positive [facility] Work Phone: Urine Non-Hemolyzed Blood Large [facility] Work Phone: Protein Test strip Ql (U)on 07-07-2021 Protein Ql (U) 100 mg/dl Negative [facility] Work Phone: Squamous epithelial cells de tection in urine sediment by light microscopyon 07-07-2021 Epithelial cells.squamous LM Ql (Urine sed) 0 SEEN /hpf [facility] Work Phone: Urine blood detectionon 06-26 RBC Ql (U) 250 /ul Negative [facility] Work Phone: [phone] RBC Ql (U) > 100 SEEN /hpf [facility] Work Phone: Urine clarityon 07-07-2021 Clarity (U) Cloudy Clear [facility] Work Phone: Urine color determinationon 07-07-2021 Color (U) Yellow Yellow [facility] Work Phone: Urine glucose detectionon Glucose Ql (U) 100 mg/dl Normal [facility] Work Phone: Urine leukocyte esterase det ection by dipstickon 07-07-2021 Leukocyte esterase Test strip Ql (U) 500 /ul Negative [facility] Work Phone: Urine pHon 07-07-2021 pH (U) 5.0 [pH] [facility] Work Phone: Urine sediment bacteria coun t by microscopy (number/high power field)on 07-07-2021 Bacteria LM.HPF (Urine sed) [#/Area] 1 /[HPF] None Seen [facility] Work Phone: Urine specific gravity measu rementon 07-07-2021 Specific gravity (U) [Rel density] 1.015 [facility] Work Phone: Urobilinogen Auto test strip Ql (U)on 07-07-2021 Urobilinogen Ql (U) 4 mg/dl Normal [facility] Work Phone: Amorphous sediment detection in urine sediment by light microscopyon 06-21-2021 Amorphous sediment LM Ql (Urine sed) 2+ [facility] Work Phone: Basophil percentageon 2020 Basophil percentage 0-5 SEEN /hpf [facility] Work Phone: Bilirubin Test strip Ql (U)o n 06-21-2021 Bilirubin Ql (U) Negative Negative [facility] Work Phone: Culture, urineon 06-21-2021 Bacteria identified Cx Nom (U) Culture exhibits no growth. [facility] Work Phone: Ketones Test strip Ql (U)on 06-21-2021 Ketones Ql (U) 5 mg/dl Negative [facility] Work Phone: Laboratory - Chemistry and C hemistry - challengeon 06-21-2021 Bilirubin Ql (U) Negative [facility] Work Phone: Glucose Ql (U) Negative [facility] Work Phone: Ketones Ql (U) Negative [facility] Work Phone: pH (U) 6.0 [pH] [facility] Work Phone: Specific gravity (U) [Rel density] 1.025 [facility] Work Phone: Urobilinogen (U) [Mass/Vol] 0.6275644 mg/dL [facility] Work Phone: Laboratory - Hematology and Cell countson 06-21-2021 Hemoglobin Ql (U) Large [facility] Work Phone: Laboratory - Specimen inform ationon 06-21-2021 Clarity (U) Cloudy [facility] Work Phone: Color (U) NASREEN [facility] Work Phone: Laboratory - Urinalysison Protein Ql (U) Trace [facility] Work Phone: Mucus LM Ql (Urine sed)on Mucus Ql (Urine sed) 0 SEEN /hpf [facility] Work Phone: Nitrite Test strip Ql (U)on 06-21-2021 Nitrite Ql (U) Negative Negative [facility] Work Phone: No Panel Informationon 06-21 Urine Leukocytes Positive [facility] Work Phone: Urine Non-Hemolyzed Blood Large [facility] Work Phone: Protein Test strip Ql (U)on 06-21-2021 Protein Ql (U) 30 mg/dl Negative [facility] Work Phone: Squamous epithelial cells de tection in urine sediment by light microscopyon 06-21-2021 Epithelial cells.squamous LM Ql (Urine sed) 0-5 SEEN /hpf [facility] Work Phone: Urine blood detectionon 05-27 RBC Ql (U) 250 /ul Negative [facility] Work Phone: RBC Ql (U) > 100 SEEN /hpf [facility] Work Phone: Urine clarityon 06-21-2021 Clarity (U) Cloudy Clear [facility] Work Phone: Urine color determinationon 06-21-2021 Color (U) Nasreen Yellow [facility] Work Phone: Urine glucose detectionon Glucose Ql (U) Normal mg/dl Normal [facility] Work Phone: Urine leukocyte esterase det ection by dipstickon 06-21-2021 Leukocyte esterase Test strip Ql (U) 25 /ul Negative [facility] Work Phone: Urine pHon 06-21-2021 pH (U) 5.0 [pH] [facility] Work Phone: Urine sediment bacteria coun t by microscopy (number/high power field)on 06-21-2021 Bacteria LM.HPF (Urine sed) [#/Area] 0 /[HPF] None Seen [facility] Work Phone: Urine specific gravity measu rementon 06-21-2021 Specific gravity (U) [Rel density] 1.020 [facility] Work Phone: Urobilinogen Auto test strip Ql (U)on 12-27-2021 Urobilinogen Ql (U) 1 mg/dl Normal [facility] Work Phone: Vital Signs Date Time Vital Sign Value Performing Clinician Facility 01-21-2025 09:04-0400 Diastolic blood pressure 81 mm[Hg] Mike Padilla MD Work Phone: [facility] 01-21-2025 09:04-0400 Heart rate 102 /min Mike Padilla MD Work Phone: [facility] 01-21-2025 09:04-0400 Respiratory rate 16 /min Mike Padilla MD Work Phone: [facility] 01-21-2025 09:04-0400 SaO2% (BldA) [Mass fraction] 94 % Mike Padilla MD Work Phone: [facility] 01-21-2025 09:04-0400 Systolic blood pressure 126 mm[Hg] Mike Padilla MD Work Phone: [facility] 01-17-2025 13:43-0400 Body temperature 97.9 [degF] Dr. Briseida Vergara MD Work Phone: [facility] 01-17-2025 13:43-0400 Diastolic blood pressure 71 mm[Hg] Dr. Briseida Vergara MD Work Phone: [facility] 01-17-2025 13:43-0400 Heart rate 100 /min Dr. Briseida Vergara MD Work Phone: [facility] 01-17-2025 13:43-0400 Respiratory rate 14 /min Dr. Briseida Vergara MD Work Phone: [facility] 01-17-2025 13:43-0400 SaO2% (BldA) [Mass fraction] 96 % Dr. Briseida Vergara MD Work Phone: [facility] 01-17-2025 13:43-0400 Systolic blood pressure 116 mm[Hg] Dr. Briseida Vergara MD Work Phone: [facility] 01-17-2025 06:00-0400 Inhaled oxygen flow rate 2 L/min Dr. Briseida Vergara MD Work Phone: [facility] 01-17-2025 05:55-0400 Body mass index (BMI) [Ratio] 23 kg/m2 Dr. Briseida Vergara MD Work Phone: [facility] 01-17-2025 05:55-0400 Body weight 83.[address] Briseida Vergara MD Work Phone: [facility] 01-14-2025 15:35-0400 Body height 190.[address] Briseida Vergara MD Work Phone: [facility] 01-05-2025 22:00-0400 Inhaled oxygen concentration 94 % Dr. Briseida Vergara MD Work Phone: [facility] 12-23-2024 09:37-0400 Body temperature 98.8 [degF] Dr. Briseida Vergara MD Work Phone: [facility] 12-23-2024 09:37-0400 Diastolic blood pressure 81 mm[Hg] Dr. Briseida Vergara MD Work Phone: [facility] 12-23-2024 09:37-0400 Heart rate 86 /min Dr. Briseida Vergara MD Work Phone: [facility] 12-23-2024 09:37-0400 Respiratory rate 23 /min Dr. Briseida Vergara MD Work Phone: [facility] 12-23-2024 09:37-0400 SaO2% (BldA) [Mass fraction] 97 % Dr. Briseida Vergara MD Work Phone: [facility] 12-23-2024 09:37-0400 Systolic blood pressure 136 mm[Hg] Dr. Briseida Vergara MD Work Phone: [facility] 12-23-2024 08:42-0400 Body mass index (BMI) [Ratio] 26.9 kg/m2 Dr. Briseida Vergara MD Work Phone: [facility] 12-23-2024 07:16-0400 Body height 190.[address] Briseida Vergara MD Work Phone: [facility] 12-23-2024 07:16-0400 Body weight 97.[address] Briseida Vergara MD Work Phone: [facility] 12-10-2024 09:41-0400 Body height 190.[address] Briseida Vergara MD Work Phone: [facility] 12-10-2024 09:41-0400 Body mass index (BMI) [Ratio] 26.2 kg/m2 Dr. Briseida Vergara MD Work Phone: [facility] 12-10-2024 09:41-0400 Body weight 95.[address] Briseida Vergara MD Work Phone: [facility] 12-10-2024 09:41-0400 Diastolic blood pressure 80 mm[Hg] Dr. Briseida Vergara MD Work Phone: [facility] 12-10-2024 09:41-0400 Heart rate 74 /min Dr. Briseida Vergara MD Work Phone: [facility] 12-10-2024 09:41-0400 Respiratory rate 16 /min Dr. Briseida Vergara MD Work Phone: [facility] 12-10-2024 09:41-0400 Systolic blood pressure 129 mm[Hg] Dr. Briseida Vergara MD Work Phone: [facility] 11-01-2024 07:44-0400 Body mass index (BMI) [Ratio] 26.9 kg/m2 Dr. Briseida Vergara MD Work Phone: [facility] 11-01-2024 07:44-0400 Body temperature 98 [degF] Dr. Briseida Vergara MD Work Phone: [facility] 11-01-2024 07:44-0400 Body weight 97.[address] Briseida Vergara MD Work Phone: [facility] 11-01-2024 07:44-0400 Diastolic blood pressure 78 mm[Hg] Dr. Briseida Vergara MD Work Phone: [facility] 11-01-2024 07:44-0400 Heart rate 78 /min Dr. Briseida Vergara MD Work Phone: [facility] 11-01-2024 07:44-0400 Respiratory rate 17 /min Dr. Briseida Vergara MD Work Phone: [facility] 11-01-2024 07:44-0400 SaO2% (BldA) [Mass fraction] 99 % Dr. Briseida Vergara MD Work Phone: [facility] 11-01-2024 07:44-0400 Systolic blood pressure 148 mm[Hg] Dr. Briseida Vergara MD Work Phone: [facility] 08-28-2023 10:12-0500 Body temperature 98.7 [degF] Dr. Briseida Vergara Work Phone: [facility] 08-28-2023 10:12-0500 Diastolic blood pressure 76 mm[Hg] Dr. Briseida Vergara Work Phone: [facility] 08-28-2023 10:12-0500 Heart rate 84 /min Dr. Briseida Vergara Work Phone: [facility] 08-28-2023 10:12-0500 Respiratory rate 16 /min Dr. Briseida Vergara Work Phone: [facility] 08-28-2023 10:12-0500 SaO2% (BldA) [Mass fraction] 92 % Dr. Briseida Vergara Work Phone: [facility] 08-28-2023 10:12-0500 Systolic blood pressure 149 mm[Hg] Dr. Briseida Vergara Work Phone: [facility] 08-28-2023 09:45-0500 Inhaled oxygen flow rate 2 L/min Dr. Briseida Vergara Work Phone: [facility] 08-28-2023 06:37-0500 Body height 190.[address] Briseida Vergara Work Phone: [facility] 08-28-2023 06:37-0500 Body mass index (BMI) [Ratio] 27.1 kg/m2 Dr. Briseida Vergara Work Phone: [facility] 08-28-2023 06:37-0500 Body weight 98.[address] Briseida Vergara Work Phone: [facility] 07-25-2023 03:30-0500 Diastolic blood pressure 87 mm[Hg] Dr. Briseida Vergara Work Phone: [facility] 07-25-2023 03:30-0500 Heart rate 86 /min Dr. Briseida Vergara Work Phone: [facility] 07-25-2023 03:30-0500 Respiratory rate 16 /min Dr. Briseida Vergara Work Phone: [facility] 07-25-2023 03:30-0500 SaO2% (BldA) [Mass fraction] 96 % Dr. Briseida Vergara Work Phone: [facility] 07-25-2023 03:30-0500 Systolic blood pressure 109 mm[Hg] Dr. Briseida Vergara Work Phone: [facility] 07-25-2023 03:00-0500 Body temperature 98.7 [degF] Dr. Briseida Vergara Work Phone: [facility] 07-24-2023 23:19-0500 Inhaled oxygen flow rate 2 L/min Dr. Briseida Vergara Work Phone: [facility] 07-24-2023 21:55-0500 Body height 190.[address] Briseida Vergara Work Phone: [facility] 07-24-2023 21:55-0500 Body mass index (BMI) [Ratio] 27.4 kg/m2 Dr. Briseida Vergara Work Phone: [facility] 07-24-2023 21:55-0500 Body weight 99.[address] Briseida Vergara Work Phone: [facility] [facility] 07-06-2023 11:36-0500 Body temperature 98 [degF] Dr. Briseida Vergara Work Phone: [facility] 07-06-2023 11:36-0500 Diastolic blood pressure 62 mm[Hg] Dr. Briseida Vergara Work Phone: [facility] 07-06-2023 11:36-0500 Heart rate 55 /min Dr. Briseida Vergara Work Phone: [facility] 07-06-2023 11:36-0500 Respiratory rate 18 /min Dr. Briseida Vergara Work Phone: [facility] 07-06-2023 11:36-0500 SaO2% (BldA) [Mass fraction] 95 % Dr. Briseida Vergara Work Phone: [facility] 07-06-2023 11:36-0500 Systolic blood pressure 102 mm[Hg] Dr. Briseida Vergara Work Phone: [facility] 06-22-2023 08:52-0500 Body height 190.[address] Zaki Burger Work Phone: [facility] 06-22-2023 08:52-0500 Body weight 100.[address] Zaki Burger Work Phone: [facility] 06-21-2023 08:23-0500 Body mass index (BMI) [Ratio] 27.7 kg/m2 Dr. Zaki Burger Work Phone: [facility] 05-11-2023 14:57-0500 Body temperature 97.8 [degF] PA Kimberly Kennedy PA Work Phone: [facility] 05-11-2023 14:57-0500 Body weight 100.69 kg PA Kimberly Kennedy PA Work Phone: [facility] 05-11-2023 14:57-0500 Diastolic blood pressure 88 mm[Hg] PA Kimberly Kennedy PA Work Phone: [facility] 05-11-2023 14:57-0500 Heart rate 52 /min PA Kimberly Kennedy PA Work Phone: [facility] 05-11-2023 14:57-0500 Respiratory rate 16 /min PA Kimberly Kennedy PA Work Phone: [facility] 05-11-2023 14:57-0500 SaO2% (BldA) [Mass fraction] 99 % PA Kimberly Kennedy PA Work Phone: [facility] 05-11-2023 14:57-0500 Systolic blood pressure 146 mm[Hg] PA Kimberly Kennedy PA Work Phone: [facility] 04-04-2023 09:05-0400 Body temperature 98 [degF] Dr. Devyn Montalvo Work Phone: [facility] 04-04-2023 09:05-0400 Body weight 100.[address] Devyn Montalvo Work Phone: [facility] 04-04-2023 09:05-0400 Diastolic blood pressure 84 mm[Hg] Dr. Devyn Montalvo Work Phone: [facility] 04-04-2023 09:05-0400 Heart rate 58 /min Dr. Devyn Montalvo Work Phone: [facility] 04-04-2023 09:05-0400 Respiratory rate 16 /min Dr. Devyn Montalvo Work Phone: [facility] 04-04-2023 09:05-0400 SaO2% (BldA) [Mass fraction] 98 % Dr. Devyn Montalvo Work Phone: [facility] 04-04-2023 09:05-0400 Systolic blood pressure 154 mm[Hg] Dr. Devyn Montalvo Work Phone: [facility] 02-14-2023 10:28-0400 Body temperature 98.2 [degF] Dr. Devyn Montalvo Work Phone: [facility] 02-14-2023 10:28-0400 Body weight 99.[address] Devyn Montalvo Work Phone: [facility] 02-14-2023 10:28-0400 Diastolic blood pressure 75 mm[Hg] Dr. Devyn Montalvo Work Phone: [facility] 02-14-2023 10:28-0400 Heart rate 60 /min Dr. Devyn Montalvo Work Phone: [facility] 02-14-2023 10:28-0400 Respiratory rate 18 /min Dr. Devyn Montalvo Work Phone: [facility] 02-14-2023 10:28-0400 SaO2% (BldA) [Mass fraction] 97 % Dr. Devyn Montalvo Work Phone: [facility] 02-14-2023 10:28-0400 Systolic blood pressure 128 mm[Hg] Dr. Devyn Montalvo Work Phone: [facility] 01-31-2023 07:46-0400 Body height 190.[address] Devyn Montalvo Work Phone: [facility] 01-31-2023 07:46-0400 Body mass index (BMI) [Ratio] 27.7 kg/m2 Dr. Devyn Montalvo Work Phone: [facility] 01-31-2023 07:46-0400 Body weight 100.[address] Devyn Montalvo Work Phone: [facility] 01-31-2023 07:46-0400 Diastolic blood pressure 82 mm[Hg] Dr. Devyn Montalvo Work Phone: [facility] 01-31-2023 07:46-0400 Heart rate 48 /min Dr. Devyn Montalvo Work Phone: [facility] 01-31-2023 07:46-0400 Respiratory rate 20 /min Dr. Devyn Montalvo Work Phone: [facility] 01-31-2023 07:46-0400 SaO2% (BldA) [Mass fraction] 97 % Dr. Dveyn Montalvo Work Phone: [facility] 01-31-2023 07:46-0400 Systolic blood pressure 155 mm[Hg] Dr. Devyn Montalvo Work Phone: [facility] 08-02-2022 10:59-0500 Body height 190.[address] Devyn Montalvo Work Phone: [facility] 08-02-2022 10:59-0500 Body mass index (BMI) [Ratio] 28 kg/m2 Dr. Devyn Montalvo Work Phone: [facility] 08-02-2022 10:59-0500 Body weight 101.[address] Devyn Montalvo Work Phone: [facility] 08-02-2022 10:59-0500 Diastolic blood pressure 74 mm[Hg] Dr. Devyn Montalvo Work Phone: [facility] 08-02-2022 10:59-0500 Heart rate 56 /min Dr. Devyn Montalvo Work Phone: [facility] 08-02-2022 10:59-0500 Respiratory rate 16 /min Dr. Devyn Montalvo Work Phone: [facility] 08-02-2022 10:59-0500 Systolic blood pressure 123 mm[Hg] Dr. Devyn Montalvo Work Phone: [facility] 10-01-2021 13:52-0400 Body temperature 97.9 [degF] Dr. Devyn Montalvo Work Phone: [facility] Work Phone: 10-01-2021 13:52-0400 Diastolic blood pressure 72 mm[Hg] Dr. Devyn Montalvo Work Phone: [facility] Work Phone: 10-01-2021 13:52-0400 Heart rate 56 /min Dr. Devyn Montalvo Work Phone: [facility] Work Phone: 10-01-2021 13:52-0400 Respiratory rate 18 /min Dr. Devyn Montalvo Work Phone: [facility] Work Phone: 10-01-2021 13:52-0400 SaO2% (BldA) [Mass fraction] 99 % Dr. Devyn Montalvo Work Phone: [facility] Work Phone: 10-01-2021 13:52-0400 Systolic blood pressure 133 mm[Hg] Dr. Devyn Montalvo Work Phone: [facility] Work Phone: 09-29-2021 19:40-0400 Body height 191.[address] Devyn Montalvo Work Phone: [facility] Work Phone: 09-29-2021 19:40-0400 Body mass index (BMI) [Ratio] 27.1 kg/m2 Dr. Devyn Montalvo Work Phone: [facility] Work Phone: 09-29-2021 19:40-0400 Body weight 99.[address] Devyn Montalvo Work Phone: [facility] Work Phone: 09-29-2021 19:25-0400 Body temperature 98.3 [degF] Dr. Devyn Montalvo Work Phone: [facility] Work Phone: 09-29-2021 19:25-0400 Diastolic blood pressure 69 mm[Hg] Dr. Devyn Montalvo Work Phone: [facility] Work Phone: 09-29-2021 19:25-0400 Heart rate 79 /min Dr. Devyn Montalvo Work Phone: [facility] Work Phone: 09-29-2021 19:25-0400 Respiratory rate 18 /min Dr. Devyn Montalvo Work Phone: [facility] Work Phone: 09-29-2021 19:25-0400 SaO2% (BldA) [Mass fraction] 95 % Dr. Devyn Montalvo Work Phone: [facility] Work Phone: 09-29-2021 19:25-0400 Systolic blood pressure 125 mm[Hg] Dr. Devyn Montalvo Work Phone: [facility] Work Phone: 09-09-2021 14:30-0400 Body temperature 98.4 [degF] Dr. Devyn Montalvo Work Phone: [facility] Work Phone: 09-09-2021 14:30-0400 Diastolic blood pressure 54 mm[Hg] Dr. Devyn Montalvo Work Phone: [facility] Work Phone: 09-09-2021 14:30-0400 Heart rate 60 /min Dr. Devyn Montalvo Work Phone: [facility] Work Phone: 09-09-2021 14:30-0400 Respiratory rate 18 /min Dr. Devyn Montalvo Work Phone: [facility] Work Phone: 09-09-2021 14:30-0400 SaO2% (BldA) [Mass fraction] 94 % Dr. Devyn Montalvo Work Phone: [facility] Work Phone: 09-09-2021 14:30-0400 Systolic blood pressure 97 mm[Hg] Dr. Devyn Montalvo Work Phone: [facility] Work Phone: 09-08-2021 14:37-0400 Body mass index (BMI) [Ratio] 27.8 kg/m2 Dr. Devyn Montalvo Work Phone: [facility] Work Phone: 09-08-2021 14:37-0400 Body weight [address] Devyn Montalvo Work Phone: [facility] Work Phone: 07-29-2021 07:54-0500 Body mass index (BMI) [Ratio] 28.3 kg/m2 Dr. Devyn Montalvo Work Phone: [facility] Work Phone: 07-29-2021 07:54-0500 Body weight 102.[address] Devyn Montalvo Work Phone: [facility] Work Phone: 07-29-2021 07:54-0500 Diastolic blood pressure 75 mm[Hg] Dr. Devyn Montalvo Work Phone: [facility] Work Phone: 07-29-2021 07:54-0500 Heart rate 60 /min Dr. Devyn Montalvo Work Phone: [facility] Work Phone: 07-29-2021 07:54-0500 Respiratory rate 18 /min Dr. Devyn Montalvo Work Phone: [facility] Work Phone: 07-29-2021 07:54-0500 SaO2% (BldA) [Mass fraction] 93 % Dr. Devyn Montalvo Work Phone: [facility] Work Phone: 07-29-2021 07:54-0500 Systolic blood pressure 122 mm[Hg] Dr. Devyn Montalvo Work Phone: [facility] Work Phone: 07-26-2021 06:17-0500 Body temperature 97.4 [degF] Dr. Devyn Montalvo Work Phone: [facility] Work Phone: 07-26-2021 06:17-0500 Diastolic blood pressure 74 mm[Hg] Dr. Devyn Montalvo Work Phone: [facility] Work Phone: 07-26-2021 06:17-0500 Heart rate 56 /min Dr. Devyn Montalvo Work Phone: [facility] Work Phone: 07-26-2021 06:17-0500 Respiratory rate 18 /min Dr. Devyn Montalvo Work Phone: [facility] Work Phone: 07-26-2021 06:17-0500 SaO2% (BldA) [Mass fraction] 97 % Dr. Devyn Montalvo Work Phone: [facility] Work Phone: 07-26-2021 06:17-0500 Systolic blood pressure 110 mm[Hg] Dr. Devyn Montalvo Work Phone: [facility] Work Phone: 07-07-2021 09:32-0500 Body temperature 98.1 [degF] Dr. Devyn Motnalvo Work Phone: [facility] Work Phone: 07-07-2021 09:32-0500 Diastolic blood pressure 80 mm[Hg] Dr. Devyn Montalvo Work Phone: [facility] Work Phone: 07-07-2021 09:32-0500 Heart rate 75 /min Dr. Devyn Montalvo Work Phone: [facility] Work Phone: 07-07-2021 09:32-0500 Respiratory rate 18 /min Dr. Devyn Montalvo Work Phone: [facility] Work Phone: 07-07-2021 09:32-0500 SaO2% (BldA) [Mass fraction] 99 % Dr. Devyn Montalvo Work Phone: [facility] Work Phone: 07-07-2021 09:32-0500 Systolic blood pressure 132 mm[Hg] Dr. Devyn Montalvo Work Phone: [facility] Work Phone: 06-21-2021 10:30-0500 Body temperature 98 [degF] Dr. Devyn Montalvo Work Phone: [facility] Work Phone: 06-21-2021 10:30-0500 Diastolic blood pressure 70 mm[Hg] Dr. Devyn Montalvo Work Phone: [facility] Work Phone: 06-21-2021 10:30-0500 Heart rate 58 /min Dr. Devyn Montalvo Work Phone: [facility] Work Phone: 06-21-2021 10:30-0500 Respiratory rate 16 /min Dr. Devyn Montalvo Work Phone: [facility] Work Phone: 06-21-2021 10:30-0500 SaO2% (BldA) [Mass fraction] 97 % Dr. Devyn Montalvo Work Phone: [facility] Work Phone: 06-21-2021 10:30-0500 Systolic blood pressure 122 mm[Hg] Dr. Devyn Montalvo Work Phone: [facility] Work Phone: Encounters Encounter Date Encounter Type Care Provider Facility Start: 02-10-2025 ambulatory Briseida Miedel Facility: [facility] Start: 02-07-2025 End: 02-07-2025 Telephone encounter Mike Padilla MD Work Phone: [facility] Comment on above: Appointment Start: 02-07-2025 End: 02-07-2025 Patient encounter procedure Mike Padilla MD Work Phone: [facility] Comment on above: SDH (subdural hemato ma) (HCC) (Primary Dx) Start: 02-07-2025 End: 02-07-2025 Telemedicine consultation with patient Mike Padilla MD Work Phone: [facility] Start: 02-07-2025 End: 02-07-2025 ambulatory BRISEIDA E MIEDEL Facility:[facility] Start: 02-04-2025 ambulatory TATIANA SANTOS Facility :[facility] Start: 02-04-2025 End: 02-04-2025 Subsequent hospital visit by physician [facility] ([facility]) Work Phone: [facility] Comment on above: SDH (subdural hemato ma) (HCC) [S06.5XAA] Start: 02-03-2025 ambulatory Briseida Vergara Facility: [facility] Start: 02-03-2025 Registered Referred Gege Esquivel Start: [facility]-27[facility]20[facility] Start: 01-27-2025 Registered Referred Gege Esquivel Start: 01-21-2025 End: 01-21-2025 Telephone encounter Tatiana Santos APRN.TEXTILE ENGINEER Work Phone: [facility] Comment on above: Returning Patient's Call Start: 01-21-2025 End: 01-21-2025 Patient encounter procedure Mike Padilla MD Work Phone: [facility] Comment on above: SDH (subdural hemato ma) (HCC) (Primary Dx) Start: 01-21-2025 End: 01-21-2025 ambulatory MIKE PADILLA Facility:[facility] Start: 01-21-2025 End: 01-21-2025 Subsequent hospital visit by physician [facility] [place] [facility] RADIO CT SCAN [place] 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 Comment on above: Injury of head, subs equent encounter [S09.90XD] Start: 01-20-2025 End: 01-20-2025 Patient encounter procedure Ashley SUTTON -[facility] [place] Work Phone: Start: 01-20-2025 End: 01-20-[address] Briseida Vergara MD Work Phone: -[facility] Start: 01-20-2025 Registered Referred Gege Esquivel Start: 01-17-2025 End: 01-17-2025 Telephone encounter Tatiana Santos APRN.TEXTILE ENGINEER Work Phone: [facility] Comment on above: Patient Update Appointment Start: 01-16-2025 Non-patient / Non-visit Candy Zacarias [facility] Start: 01-16-2025 Non-patient / Non-visit Dr. Bonnie Kelly [facility] Work Phone: Start: 01-15-2025 Non-patient / Non-visit Dr. Bonnie Kelly [facility] Work Phone: Start: 01-14-2025 Non-patient / Non-visit Dr. Bonnie Kelly [facility] Work Phone: Start: 01-13-2025 Non-patient / Non-visit Dr. Bonnie Kelly [facility] Work Phone: Start: 01-09-2025 Non-patient / Non-visit Dr. Bonnie Kelly [facility] Work Phone: Start: 01-08-2025 Non-patient / Non-visit Dr. Bonnie Kelly [facility] Work Phone: Start: 01-07-2025 Non-patient / Non-visit Dr. Bonnie Kelly [facility] Work Phone: Start: 01-06-2025 Non-patient / Non-visit Dr. Bonnie Kelly [facility] Work Phone: Start: 01-03-2025 Non-patient / Non-visit Dr. Bonnie Kelly [facility] Work Phone: Start: 01-02-2025 Non-patient / Non-visit Dr. Bonnie Kelly [facility] Work Phone: Start: 01-01-2025 End: 01-01-2025 Telephone encounter Mike Padilla MD Work Phone: [facility] Comment on above: Appointment Start: 01-01-2025 Non-patient / Non-visit Dr. Bonnie Kelly DO -[facility] Work Phone: Start: 12-31-2024 Non-patient / Non-visit Dr. Bonnie Kelly DO -[facility] Work Phone: Start: 12-30-2024 End: 01-17-2025 Evaluation and management of inpatient Dr. Savanna Kelly DO -Rehab Unit Work Phone: Start: 12-30-2024 End: 12-30-2024 Orders Only Pierre Stahl [employer] TILE FLOOR LAYER.TEXTILE ENGINEER Work Phone: [facility] Comment on above: SDH (subdural hemato ma) (HCC) (Primary Dx); Injury of head, subsequent encounter Start: 12-23-2024 End: 12-30-2024 Evaluation and management of inpatient KATI ERICSHELLODALYS Facility:[facility] Start: 12-23-2024 End: 12-23-2024 Emergency department patient visit Dr. Briseida Vergara MD Work Phone: -Emergency Department Work Phone: Start: 12-10-2024 End: 12-10-2024 Patient encounter procedure Mateo SUTTON -[facility] Work Phone: Start: 12-10-2024 End: 12-10-[address] Briseida Vergara MD Work Phone: [facility] Work Phone: Start: 11-01-2024 End: 11-01-2024 Patient encounter procedure Lamin CHAUDHARY -[facility] Work Phone: Start: 11-01-2024 End: 11-01-2024 ambulatory Briseida Vergara [facility] Start: 06-20-2024 End: 06-20-2024 ambulatory Briseida Vergara Facility:[facility] Start: 03-19-2024 End: 03-19-2024 ambulatory Briseida Vergara Facility:[facility] Start: 08-28-2023 End: 08-28-2023 Admission to same day surgery center Dr. Briseida Vergara Work Phone: [facility]-Surgical Day Care Start: 08-28-2023 End: 08-28-[address] Briseida Vergara Work Phone: [facility] Work Phone: Start: 07-28-2023 End: 07-28-[address] Briseida Vergara Work Phone: [facility] Work Phone: Start: 07-28-2023 End: 07-28-[address] Briseida Vergara Work Phone: [facility]-Laboratory, Specimen Work Phone: Start: 07-24-2023 End: 07-25-2023 Emergency department patient visit Dr. Briseida Vergara Work Phone: [facility]-Emergency Department Work Phone: Start: 07-06-2023 End: 07-06-[address] Briseida Vergara Work Phone: [facility] Work Phone: Start: 06-22-2023 Non-patient / Non-visit Dr. Laurent Burger Work Phone: [facility] Start: 06-22-2023 End: 06-22-2023 Admission to same day surgery center Dr. Zaki Burger Work Phone: [facility]-Scudding Inspector/Special Procedures Work Phone: Start: 06-22-2023 End: 06-22-[address] Zaki Burger Work Phone: [facility] Work Phone: Start: 05-30-2023 End: 05-30-2023 ambulatory NEENA CHAUDHARY Work Phone: [facility] Work Phone: Start: 05-30-2023 End: 05-30-2023 Patient encounter procedure NEENA CHAUDHARY Work Phone: [facility] Start: 05-11-2023 End: 05-11-2023 Patient encounter procedure NEENA CHAUDHARY Work Phone: [facility] Work Phone: Start: 05-09-2023 End: 05-09-[address] Devyn Montalvo Work Phone: [facility] Work Phone: Start: 05-09-2023 End: 05-09-[address] Devyn Montalvo Work Phone: [facility]-Physical Therapy Work Phone: Start: 04-28-2023 End: 04-28-[address] Devyn Montalvo Work Phone: [facility]-Laboratory Work Phone: Start: 04-20-[address] Devyn Montalvo Work Phone: [facility]-Physical Therapy Work Phone: Start: 04-13-2023 End: 04-13-[address] Devyn Montalvo Work Phone: [facility] Work Phone: Start: 04-13-2023 End: 04-13-[address] Devyn Montalvo Work Phone: [facility]-Cat Scan, [facility] Work Phone: Start: 04-04-2023 End: 04-04-[address] Devyn Montalvo Work Phone: [facility] V[facility] Surgery Work Phone: Start: 03-16-2023 End: 03-16-[address] [facility] Montalvo [facility] Start: 03-09-2023 Non-patient / Non-visit Dr. Neena Montalvo Work Phone: [facility] Start: 03-09-2023 End: 03-09-[address] Devyn Montalvo [facility] Phone[facility] Work Phone: Start: 02-24-2023 Non-patient / Non-visit Dr. Neena Montalvo Work Phone: [facility] Start: 02-24-2023 End: 02-24-[address] Devyn Montalvo Work Phone: [facility] Work Phone: Start: 02-24-2023 End: 02-24-[address] Devyn Montalvo [facility] Work [facility]: Start: 02-14-2023 End: 02-14-[address] Devyn Montalvo Work Phone: [facility] Vascular Surgery Work Phone: Start: 02-08-2023 Non-patient / Non-visit Dr. Neena Montalvo Work Phone: [facility] Start: 02-07-2023 End: 02-07-[address] Devyn Montalvo Work Phone: [facility] Work Phone: Start: 02-07-2023 End: 02-07-[address] Devyn Montalvo [facility] Work Phone: Start: 01-31-2023 End: 01-31-[address] Devyn Montalvo Work Phone: [facility] Work Phone: Start: 01-31-2023 End: 01-31-[address] Devyn Montalvo Work Phone: [facility] Work Phone: Start: 11-03-2022 Non-patient / Non-visit Dr. Neena Montalvo Work Phone: [facility] Start: 11-03-2022 End: 11-03-[address] Devyn Montalvo Work Phone: [facility] Work Phone: Start: 11-03-2022 End: 11-03-[address] Devyn Montalvo [facility] Start: 10-18-2022 End: 10-18-[address] Devyn Montalvo Work Phone: [facility] Start: 08-15-2022 Non-patient / Non-visit Dr. Neena Montalvo Work Phone: [facility] Start: 08-15-[address] Devyn cutler [facility] Start: 08-02-2022 End: 08-02-[address] Devyn Montalvo Work Phone: [facility] Start: 09-29-2021 End: 10-01-2021 Evaluation and management of inpatient Dr. Devyn Montalvo Work Phone: [facility] 3 Start: 09-29-2021 Evaluation and management of inpatient Dr. Devyn Montalvo Work Phone: [facility] 3 Start: 09-08-2021 End: 09-09-2021 Evaluation and management of inpatient Dr. Devyn Montalvo Work Phone: [facility] 3 Start: 07-29-2021 End: 07-29-[address] Devyn Montalvo Work Phone: [facility] Start: 07-26-2021 End: 07-26-[address] Devyn Montalvo [facility] Start: 07-26-2021 End: 07-26-[address] Devyn Montalvo Work Phone: [facility] Start: 07-07-2021 End: 07-07-[address] Devyn Montalvo [facility] Start: 07-07-2021 End: 07-07-[address] Devyn Montalvo Work Phone: [facility] Start: 06-21-2021 End: 06-21-[address] Devyn Montalvo [facility] Start: 06-21-2021 End: 06-21-[address] Devyn Montalvo Work Phone: [facility] Procedures Date Procedure Procedure Detail Performing Clinician Start: 02-04-2025 Ct head/brain w/o co ntrast material Tatiana Santos APRN.TEXTILE ENGINEER Work Phone: Start: 01-27-[address] e detection Dr. Briseida Vergara MD Work Phone: Start: 01-21-2025 Ct head/brain w/o co ntrast material Pierre Stahl [employer] FLOOR LAYER.TEXTILE ENGINEER Work Phone: Start: 01-15-2025 CT of head without contrast Dr. Briseida Vergara MD Work Phone: Start: 01-15-[address] Briseida Vergara MD Work Phone: Start: 01-14-2025 Urnls dip stick/tabl et reagent auto microscopy Dr. Briseida Vergara MD Work Phone: Start: 01-04-2025 Plain chest X-ray Dr. William Vergara MD Work Phone: Start: 01-02-2025 Osmolality measureme nt, serum Dr. Briseida Vergara MD Work Phone: Start: 01-01-2025 Measurement of occul t blood in stool specimen using immunoassay Dr. Briseida Vergara MD Work Phone: Start: 01-01-2025 Serum inorganic phos phate measurement Dr. Briseida Vergara MD Work Phone: Start: 12-31-[address] Fanny Vergara MD Work Phone: Start: 12-23-2024 Antibody screen KATI LEMON Comment on above: Order Comment: Speci men Type: BLOOD SPECIMENOrdering Facility: [facility] Address: [address] [place] [address] Performed By: #### T SCR ####[facility]ANK[facility] [id number] [place] [address] [place] Start: 12-23-[address] Briseida Vergara MD Work Phone: Start: 12-23-2024 CT angiography of he ad and neck Dr. Briseida Vergara MD Work Phone: Start: 12-23-2024 CT of head without contrast Dr. Briseida Vergara MD Work Phone: Start: 08-28-2023 Parotidectomy (Right) Tahmina Vergara Work Phone: Start: 07-28-[address] Fanny Vergara Work Phone: Start: 07-24-2023 Plain chest X-ray Dr. William Vergara Work Phone: Start: 07-24-2023 Bacteria identified in Blood by Culture Dr. Briseida Vergara Work Phone: Start: 07-24-2023 SARS-CoV-2, Influenz a & RSV (PCR) Dr. Briseida Vergara Work Phone: Start: 07-24-[address] Fanny Vergara Work Phone: Start: 05-30-[address] of whole body PA Kimberly CHAUDHARY Work Phone: Start: 04-13-2023 CT of soft tissues o f neck with contrast Dr. Devyn Montalvo Work Phone: Start: 01-31-2023 Plain chest X-ray Dr. Ca Montalvo Work Phone: Start: 10-18-2022 X-ray of both feet Dr. Devyn Montalvo Work Phone: Start: 09-06-2021 End: 09-06-[address] Devyn Montalvo Work Phone: Start: 07-26-[address] Devyn Montalvo Work Phone: Start: 07-07-[address] Devyn Montalvo Work Phone: Start: 06-21-[address] Devyn Montalvo Work Phone: Plan of Treatment Date Care Activity Detail Author Start: 05-09-2035 Urine microalbumin profile DTaP,Tdap,Td Vaccine (3 - Td or Tdap) [facility] Start: 12-31-2027 Diabetes Screening Diabetes Screenin g [facility] Start: 02-24-2025 Influenza vaccination Influenza Vacc ine (#1) [facility] Start: 02-07-2025 End: 02-07-2025 Patient encounter procedure 02/07/2025 9:00 AM EDT [facility] [address] [place] [id number] Mike Padilla MD [address] [place], [place] [address] Call : [phone], review CT done 02/04 [facility] Comment on above: Call : , review CT done 02/04 Start: 01-21-2025 End: 01-21-2025 Patient encounter procedure RADIO CT 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 [employer]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 Comment on above: CT BRAIN [facility] follow up C T today Start: 01-17-2025 Patient discharge [facility] Start: 01-17-2025 Oxygen therapy [facility] Start: 01-14-2025 End: 01-14-2025 Patient encounter procedure RADIO CT SCAN 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 Comment on above: CT BRAIN [facility] follow up C T today Start: 01-14-2025 [facility] Start: 01-13-2025 [facility] Start: 01-09-2025 Consultation for pain [facility] Start: 01-06-2025 Following clinical pathway protocol [facility] Start: 01-02-2025 [facility] Start: 01-02-2025 [facility] Start: 12-31-2024 Application of intermittent pneumatic compression device [facility] Start: 12-31-2024 Recommendation to continue with treatment [facility] Start: 12-31-2024 [facility] Start: 12-31-2024 [facility] Start: 12-30-2024 Admission procedure [facility] Start: 12-30-2024 Measuring intake and output [facility] Start: 12-30-2024 Patient referral to dietitian [facility] Start: 12-30-2024 Referral to service [facility] Start: 12-30-2024 Urinary bladder training [facility] Start: 12-30-2024 Vital signs measurements [facility] Start: 12-30-2024 [facility] Start: 12-30-2024 Referral to occupati onal therapist [facility] Start: 12-30-2024 Verification routine [facility] Start: 12-30-2024 Speech therapy assessment [facility] Start: 12-23-2024 [facility] Start: 12-23-2024 Oxygen therapy [facility] Start: 12-23-2024 End: 12-23-2024 [facility] Start: 09-03-2024 Covid-19 Vaccine () Covid-19 Vaccine () [facility] Start: 06-26-2024 Advance Directive Discussion Advance Directive Discussion [facility] Start: 08-28-2023 Patient discharge [facility] Start: 08-28-2023 Ambulation without limitation [facility] Start: 08-28-2023 Elevation of head of bed [facility] Start: 08-28-2023 Medical regimen orde rs management [facility] Start: 08-28-2023 Medication education [facility] Start: 08-28-2023 Procedure discontinued [facility] Start: 08-28-2023 Taking patient vital signs [facility] Start: 08-28-2023 Vital signs measurements [facility] Start: 07-25-2023 End: 07-25-2023 [facility] Start: 07-24-2023 End: 07-24-2023 Blood culture [facility] Start: 07-24-2023 End: 07-24-2023 [facility] Start: 07-24-2023 Bacteria identified in Blood by Culture Blood Culture [facility] Start: 07-24-2023 Bacteria identified in Urine by Culture [facility] Start: 06-22-2023 Patient discharge [facility] Start: 02-17-2023 Patient referral [facility] Work Phone: Start: 09-08-2021 Anesthesia transuret hral resection of prostate ANESTH REMOVAL OF PROSTATE [facility] Work Phone: Start: 09-08-2021 Trurl electrosurg re scj prostate bleed complete PROSTATECTOMY (TURP) [facility] Work Phone: Start: 07-26-2021 Patient referral [facility] Work Phone: Start: 2017 RSV Vaccine (1 - 1-d ose 75+ series) RSV Vaccine (1 - 1-dose 75+ series) [facility] Start: 05-07-2012 Shingrix Vaccine (2 of 3) Shingrix Vaccine (2 of 3) [facility] Start: 02-24-2007 Medicare Annual Well ness Visit Medicare Annual Wellness Visit [facility] Start: 1958 Anxiety Screening Anxiety Screening [facility] Start: 1958 Depression Screening Depression Scre ening [facility] Anion gap in Serum o r Plasma [facility] BUN/Creatinine ratio [facility] Calcium [Mass/volume ] in Serum or Plasma [facility] Carbon dioxide, tota l [Moles/volume] in Central venous blood [facility] Creatinine [Mass/vol ume] in Serum or Plasma [facility] End: 01-29-2026 CT Head WO contrast CT BRAIN WO IVCON Radiology Routine Injury of head, subsequent encounter SDH (subdural hematoma) (HCC) 1 Occurrences starting 12/30/2024 until 01/29/2026 [facility] Work Phone: Comment on above: 1 Occurrences starti ng 12/30/2024 until 01/29/2026 End: 02-20-2026 CT Head WO contrast CT BRAIN WO IVCON Radiology Routine SDH (subdural hematoma) (HCC) 1 Occurrences starting 01/21/2025 until 02/20/2026 [facility] Work Phone: Comment on above: 1 Occurrences starti ng 01/21/2025 until 02/20/2026 End: 03-09-2026 CT Head WO contrast CT BRAIN WO IVCON Radiology Routine SDH (subdural hematoma) (HCC) 1 Occurrences starting 02/07/2025 until 03/09/2026 [facility] Work Phone: Comment on above: 1 Occurrences starti ng 02/07/2025 until 03/09/2026 Glucose [Mass/volume ] in Serum or Plasma [facility] Lactic acid measurement [facility] Measurement of renal function [facility] Measurement of respiratory function [facility] Patient Education ED Fever Contr ol (Adult) ED Urinary Tract Infections in Men [facility] Work Phone: Patient referral [facility] Work Phone: Potassium measurement [facility] Serum chloride measurement [facility] Sodium measurement [facility] Troponin T.cardiac [Mass/volume] in Serum or Plasma by High sensitivity method [facility] Urea nitrogen [Mass/volume] in Serum or Plasma [facility] Immunizations Immunization Date Immunization Notes Care Provider [facility] 11-01-2024 tetanus toxoid, redu vern diphtheria toxoid, and acellular pertussis vaccine, adsorbed Dr. Briseida Vergara MD Work Phone: [facility] 03-06-2024 Pfizer Covid-19 (Comirnaty) Dr. Briseida Vergara MD Work Phone: [facility] 03-06-2024 influenza virus vacc ine, unspecified formulation Pierre Stahl APRN.TEXTILE ENGINEER Work Phone: [facility] 03-28-2023 Pfizer Covid-19 (Comirnaty) Dr. Briseida Vergara MD Work Phone: [facility] 03-31-2021 Covid (Pfizer) Dr. Dveyn Reich assblanche Work Phone: [facility] 03-03-2021 pneumococcal polysaccharide vaccine, [address] Devyn Montalvo Work Phone: [facility] 08-18-2020 Covid (Pfizer) Dr. Devyn spicer Work Phone: [facility] 07-28-2020 Covid (Pfizer) Dr. Devyn spicer Work Phone: [facility] 04-13-2019 tetanus toxoid, redu vern diphtheria toxoid, and acellular pertussis vaccine, adsorbed Dr. Devyn Montalvo Work Phone: [facility] 03-26-[address] Devyn Montalvo Work Phone: [facility] 03-26-2015 influenza, injectabl e, quadrivalent, preservative free Dr. Devyn Montalvo Work Phone: [facility] 03-26-2015 influenza, seasonal, injectable Dr. Devyn Montalvo Work Phone: [facility] Payers Date Payer Category Payer Self-pay [id number] 2014 [facility] [employer] [employer] Address: [facility] [address] [place] [address] [id number] 2014 Unknown [id number] 2007 Medicare MEDICARE [id number] 2007 Medicare [id number] Unknown [id number] [id number]. 2.462 Unknown [id number] 2.16.840.1.871898.3.579. 2.462 Unknown [id number] 2.16.840.1.721241.3.579. 2.462 Unknown [id number] 2.16.840.1.339216.3.579. 2.462 Unknown [id number] 2.16.840.1.524439.3.579. 2.462 Unknown [id number] 2.16.840.1.735190.3.579. 2.462 Unknown [id number] 2.16.840.1.398897.3.579. 2.462 Unknown [id number] 2.16.840.1.549237.3.579. 2.462 Unknown [id number] 2.16.840.1.769880.3.579. 2.462 Unknown [id number] 2.16.840.1.263351.3.579. 2.462 Unknown [id number] 2.16.840.1.723315.3.579. 2.462 Unknown [id number] 2.16.840.1.516529.3.579. 2.462 Unknown [id number] 2.16.840.1.092978.3.579. 2.462 Unknown [id number] 2.16.840.1.194423.3.579. 2.462 Unknown [id number] 2.16.840.1.954221.3.579. 2.462 Unknown [id number] 2.16.840.1.284372.3.579. 2.462 Unknown [id number] 2.16.840.1.863499.3.579. 2.462 Unknown [id number] 2.16.840.1.626452.3.579. 2.462 Unknown [id number] 2.16.840.1.530497.3.579. 2.462 Unknown [id number] 2.16.840.1.176578.3.579. 2.462 Unknown [id number] 2.16.840.1.846042.3.579. 2.462 Unknown [id number] 2.16.840.1.967365.3.579. 2.462 Unknown [id number] 2.16.840.1.529846.3.579. 2.462 Unknown [id number] 2.840.1.976409.3.579. 2.462 Unknown [id number] 2.840.1.861280.3.579. 2.462 Social History Date Type Detail Facility Start: 09-29-2021 End: 08-15-2023 Tobacco smoking status LAIS Unknown if ever smoked [facility] Start: 04-29-2015 None [facility] Start: 12-21-2019 Spouse/ Significant Other [facility] Start: 07-20-2020 Non-smoker [facility] Start: 1940 Sex Assigned At Male [facility] Start: 08-15-2023 End: 12-30-2024 Tobacco smoking status NHIS Ex-smoker (finding) [facility] Start: 01-21-2025 Tobacco smoking status LAIS Never smoked tobacco [facility] Start: 08-31-2015 End: 02-07-2025 Alcoholic beverage intake Current drinker of alcohol (finding) [facility] Start: 12-24-2024 End: 02-07-2025 History of Social function [facility] Work Phone: Start: 12-24-2024 End: 02-07-2025 [facility] Utilities [facility] Work Phone: Has the [employer], [employer], or water [employer] threatened to shut off services in your home in past 12Mo No [facility] Work Phone: (I/We) worried lisa er (my/our) food would run out before (I/we) got money to buy more. Never true [facility] Start: 05-27-2012 In the past 12 months, has lack of transportation kept you from medical appointments or from getting medications? No [facility] Start: 1940 Sex assigned at Not on file [facility] Start: 01-21-2025 Tobacco use and exposure Smokeless tobacco non-user [facility] Medical Equipment Procedure Code Equipment Code Equipment Origin al Text Equipment Identifier Dates SEALANT,FLOSEAL HEMOSTATIC 5ML FDA Start: 07-31-2020 SEALANT,TISSEEL 2ML FDA Start : 07-31-2020 SEALANT,FLOSEAL HEMOSTATIC 5ML FDA Start: 07-31-2020 SEALANT,TISSEEL 2ML FDA Start : 07-31-2020 SEALANT,FLOSEAL HEMOSTATIC 5ML FDA Start: 07-31-2020 SEALANT,TISSEEL 2ML FDA Start : 07-31-2020 SEALANT,FLOSEAL HEMOSTATIC 5ML FDA Start: 07-31-2020 SEALANT,TISSEEL 2ML FDA Start : 07-31-2020 SEALANT,FLOSEAL HEMOSTATIC 5ML FDA Start: 07-31-2020 SEALANT,TISSEEL 2ML FDA Start : 07-31-2020 SEALANT,FLOSEAL HEMOSTATIC 5ML FDA Start: 07-31-2020 SEALANT,TISSEEL 2ML FDA Start : 07-31-2020 SEALANT,FLOSEAL HEMOSTATIC 5ML FDA Start: 07-31-2020 SEALANT,TISSEEL 2ML FDA Start : 07-31-2020 SEALANT,FLOSEAL HEMOSTATIC 5ML FDA Start: 07-31-2020 SEALANT,TISSEEL 2ML FDA Start : 07-31-2020 SEALANT,FLOSEAL HEMOSTATIC 5ML FDA Start: 07-31-2020 SEALANT,TISSEEL 2ML FDA Start : 07-31-2020 SEALANT,FLOSEAL HEMOSTATIC 5ML FDA Start: 07-31-2020 SEALANT,TISSEEL 2ML FDA Start : 07-31-2020 SEALANT,FLOSEAL HEMOSTATIC 5ML FDA Start: 07-31-2020 SEALANT,TISSEEL 2ML FDA Start : 07-31-2020 SEALANT,FLOSEAL HEMOSTATIC 5ML FDA Start: 07-31-2020 SEALANT,TISSEEL 2ML FDA Start : 07-31-2020 SEALANT,FLOSEAL HEMOSTATIC 5ML FDA Start: 07-31-2020 SEALANT,TISSEEL 2ML FDA Start : 07-31-2020 SEALANT,FLOSEAL HEMOSTATIC 5ML FDA Start: 07-31-2020 SEALANT,TISSEEL 2ML FDA Start : 07-31-2020 SEALANT,FLOSEAL HEMOSTATIC 5ML FDA Start: 07-31-2020 SEALANT,TISSEEL 2ML FDA Start : 07-31-2020 SEALANT,FLOSEAL HEMOSTATIC 5ML FDA Start: 07-31-2020 SEALANT,TISSEEL 2ML FDA Start : 07-31-2020 SEALANT,FLOSEAL HEMOSTATIC 5ML FDA Start: 07-31-2020 SEALANT,TISSEEL 2ML FDA Start : 07-31-2020 Goals Date Patient Goal Desired Activity /State Functional Status Date Assessment Result Facility 01-17-2025 Functional status Activity Abili ty With Assist of 2 [facility] Work Phone: 01-13-2025 Functional status Bedrest [facility] Work Phone: 10-01-2021 Functional status Ambulates [facility] Work Phone: 09-09-2021 Functional status Ambulates [facility] Work Phone: Mental Status Date Assessment Result Facility 01-17-2025 Cognitive function Voice/Name [facility] Work Phone: 01-16-2025 Cognitive function Appropriate;C ooperative;Fatigu ed [facility] Work Phone: 12-23-2024 Cognitive function Awake;Alert;A ppropriate;Follow s Commands [facility] Work Phone: 08-28-2023 Cognitive function Voice/Name;Touch/Shaki ng [facility] Work Phone: 10-01-2021 Cognitive function Voice/Name [facility] Work Phone: 09-09-2021 Cognitive function Level Of Cons ciousness Awake;Alert;Appropriate;Follow s Commands [facility] Work Phone: 09-09-2021 Cognitive function Appropriate [facility] Work Phone: Clinical Notes 02-08-2023 to 02-07-2025 Telephone Encounter - Michelle Gale - 02/07/2025 11:54 AM EDTTelephone Encounter - Michelle Gale - 02/07/2025 11:54 AM Mike Ocasio MD - 02/07/2025 9:00 AM EDTPatient Instructions Note Date & Type Note Facility 02-07-2025 Telephone encount er Note Patients does not want to schedule follow up at this time. Recommended a CT scan and in person visit in one month (around 03/10). Mrs. Yañez will call us in a couple weeks with an update. Michelle Gale [facility] 02-07-2025 Miscellaneous Notes Formattin g of this note might be different from the original. Patients does not want to schedule follow up at this time. Recommended a CT scan and in person visit in one month (around 03/10). Mrs. Yañez will call us in a couple weeks with an update. Michelle Gale documented in this encounter [facility] 02-07-2025 History of Presen t illness Narrative NEUROSURGERY TELEPHONE VISIT PROGRESS NOTE Dr. Mike Padilla MD, FACS This is a telephone encounter initiated for an established patient, parent or guardian not originating from a related Evaluation & Management service provided within the previous 7 days nor leading to an Evaluation & Management service or procedure within the next 24 hours or soonest available appointment. Date of visit: February 07, 2025 Patient Name: Mr.Kenneth Pamela Yañez Date of : 1940 Current Age: [age] year old MRN/E# [id number] Last Office Visit: 01/21/2025 Mr.Kenneth Pamela Yañez has consented to this telephone encounter. PERSONS PRESENT: patient's spouse/significant other CHIEF COMPLAINT: Patient presents with: Established Patient Follow Up HISTORY OF PRESENT ILLNESS : The patient presents for a 2 week follow up visit. The patient presents as a hospital follow up with imaging (CT B) for evaluation. This is an 84-year-old male with a PMHx of atrial fibrillation (Xarelto), HTN who was seen for consult at [facility] after transfer from an OSH on 12/23/[address] Coppola. The patient presented after a GLF causing him to strike the back of his head. Workup was completed and showed a large right falcine SDH with mass effect and a right subacute/small acute convexity SDH. Xarelto was placed on hold and reversed with Kcentra and he was transferred to [facility] for higher acuity care. No emergent neurosurgical intervention was indicated. He was started on Keppra for seizure prophylaxis. He was monitored in the ICU with frequent neurochecks and serial imaging. NIL was consulted for possible embolization. He developed weakness on the left side but wanted to hold off on any surgery. Serial imaging was obtained and stabilized. No neurosurgical intervention was ultimately warranted. Once medically stable he was cleared for acute rehab with recommendation to hold all blood thinning medications. He was cleared for heparin subcu for DVT prophylaxis. Recommendation was to follow-up in the outpatient setting with a repeat CT for continued monitoring. While in rehab a CT of the head was obtained on 01/15/2025. The facility is attending physician, Dr. Kelly contacted me and reported that there was interval improvement in the right falx/tentorial subdural hematoma and no evidence of acute hemorrhage. 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 Recommendation was for him to follow-up in 3 to 4 days in the neurosurgery outpatient setting with a repeat CT to evaluate, prompting his last visit on 01/21/2025 when we talked to his doctor at the facility who his name is Dr. Ching who asked about his Xarelto and I told her he can resume the Xarelto as of January 17, 2025. Patient's family stated that he had not been started on Xarelto. He underwent a CT scan 01/21/2025 with the assumption that he was started on Xarelto and I wanted to check and see if he had any adverse reactions to Xarelto such as expanding of the hematoma. I reviewed the scan of January 15 and January 21 and I saw a minimal if any significant change in the resolving falx subdural hematoma. Patient was awake and alert and the examination was as above and by the family's assessment he was slowly improving but his rehab management had been interrupted because of a urinary tract infection. He sat up in a chair and he was able to eat and swallow without difficulty. My recommendation was that if he did not start on the Xarelto he could resume the Xarelto with the same dose as on his previous regimen. As he was going to be resuming Xarelto I recommended a CT scan in 2 weeks from now which if done in [place] could be pushed onto our system so we can review it and have a telephone visit with his family and him 2 weeks from now. I discussed the risks of Xarelto as well as risks of not giving it. The family understood and were willing to proceed with the resumption of the Xarelto. His spouse, Moise, is present and reports Sung to be doing well with improvements in his strength and cognition. He has been on Xarelto x2 weeks now. He has been taken off his Gabapentin which she felt was causing him to be confused some. He is residing at [facility] in [place]. Moise states that Sung is doing well with no reports of headaches. He follows up today for imaging review. MEDICATIONS: Keppra: Short course Dexamethasone: No SYMPTOMS: Left sided weakness PREVIOUS CONSERVATIVE TREATMENTS: None SURGICAL RISK: Smoker: Never Diabetic: No Anticoagulants / Antiplatelets: Xarelto Occupation: N/A PREVIOUS NEUROSURGERY: None Current Outpatient Medications Medication Sig Dispense Refill bisacodyl (DULCOLAX) 10 mg supp 10 mg by RECTAL route once daily as needed for constipation. magnesium hydroxide (MOM) 400 mg/5 mL suspension Take 30 mL by mouth once daily as needed for constipation. mirtazapine (REMERON) 15 mg tablet Take 15 mg by mouth daily at bedtime. gabapentin (NEURONTIN) 100 mg capsule Take 100 mg by mouth three times a day. magnesium chloride 64 mg magnesium tab Take by mouth. Menthol-Zinc Oxide (CALMOSEPTINE) 0.44-20.6 % Apply to affected area. senna-docusate (SENNA-S) 8.6-50 mg per tablet Take 1 tablet by mouth once daily. pantoprazole (PROTONIX) 40 mg grps Take 40 mg by mouth daily at 6 am. saliva substitute combo no.9 (BIOTENE DRY MOUTH ORAL RINSE) mwsh Use 15 mL as instructed. emollient combination no.119 (EUCERIN ADVANCED REPAIR) crea Apply to affected area. sodium chloride soluble tablet 1 g Take 1 g by mouth three times a day. metoprolol succinate ER (TOPROL XL) 50 mg 24 hr tablet Take 50 mg by mouth once daily. acetaminophen (TYLENOL EXTRA STRENGTH) 500 mg tablet Take 500 mg by mouth every 8 hours as needed for pain. oxyCODONE IR (ROXICODONE) 5 mg immediate release tablet Take 5 mg by mouth every 6 hours as needed for pain. 0 metoprolol succinate ER (TOPROL XL) 25 mg 24 hr tablet Take 25 mg by mouth once daily. No current facility-administered medications for this visit. REVIEW OF SYSTEMS: Review of Systems IMAGING: CT Brain WO/W IVCON performed on 02/04/2025 demonstrates: IMPRESSION: Interval near complete resolution of right cerebral convexity subdural hemorrhage and decrease in size of right posterior parafalcine evolving subdural hemorrhage. Improving mild residual adjacent mass effect without significant midline shift. No new intracranial hemorrhage or acute intracranial process. ASSESSMENT/PLAN: 1. SDH (subdural hematoma) (HCC) - ICD9: 432.1, ICD10: S06.5XAA Last visit we started this patient back on his Xarelto and today we had a telephone conversation with him after he underwent a CT scan in [place] which I reviewed. Patient reported today by his to be doing better with his left side. He has no headache or dizziness. I told her that the CAT scan is improved and there is no indication of new bleed since we started the Xarelto so the plan is to have him seen in 1 month from now with a CAT scan of the head. - CT BRAIN WO SIRIAON Mike Padilla MD FOLLOW UP: [address] scan I have communicated my name and active licensure. The patient's identity and physical location were verified at the time of this visit. Either the patient or their legal sales representative electric service has been informed of the risks and benefits of -- and alternatives to -- treatment through a remote evaluation and consents to proceed with the evaluation remotely. Time spent: 5-10 minutes Please Note: This note has been partially generated using [employer], a speech recognition software program, and may contain errors including punctuation, grammar, spelling, gender, and inappropriate words or phrases that pertain to the system. documented in this encounter [facility] 02-07-2025 Note HNO ID: [id number] Author: MIKE PADILLA MD Service: ? Author Type: Physician Type: Progress Notes Filed: 02/07/2025 09:04 Note Text: NEUROSURGERY TELEPHONE VISIT PROGRESS NOTE Dr. Mike Padilla MD, FACS This is a telephone encounter initiated for an established patient, parent or guardian not originating from a related Evaluation AND Management service provided within the previous 7 days nor leading to an Evaluation AND Management service or procedure within the next 24 hours or soonest available appointment. Date of visit: February 07, 2025 Patient Name: Mr.Kenneth Pamela Yañez Date of : 1940 Current Age: [age] year old MRN/E# [id number] Last Office Visit: 01/21/2025 Mr.Kenneth Pamela Yañez has consented to this telephone encounter. PERSONS PRESENT: patient's spouse/significant other CHIEF COMPLAINT: Patient presents with: Established Patient Follow Up HISTORY OF PRESENT ILLNESS : The patient presents for a 2 week follow up visit. The patient presents as a hospital follow up with imaging (CT B) for evaluation. This is an 84-year-old male with a PMHx of atrial fibrillation (Xarelto), HTN who was seen for consult at [facility] after transfer from an OSH on 12/23/[address] Coppola. The patient presented after a GLF causing him to strike the back of his head. Workup was completed and showed a large right falcine SDH with mass effect and a right subacute/small acute convexity SDH. Xarelto was placed on hold and reversed with Kcentra and he was transferred to [facility] for higher acuity care. No emergent neurosurgical intervention was indicated. He was started on Keppra for seizure prophylaxis. He was monitored in the ICU with frequent neurochecks and serial imaging. NIL was consulted for possible embolization. He developed weakness on the left side but wanted to hold off on any surgery. Serial imaging was obtained and stabilized. No neurosurgical intervention was ultimately warranted. Once medically stable he was cleared for acute rehab with recommendation to hold all blood thinning medications. He was cleared for heparin subcu for DVT prophylaxis. Recommendation was to follow-up in the outpatient setting with a repeat CT for continued monitoring. While in rehab a CT of the head was obtained on 01/15/2025. The [facility] is attending physician, Dr. Kelly contacted me and reported that there was interval improvement in the right falx/tentorial subdural hematoma and no evidence of acute hemorrhage. 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 Recommendation was for him to follow-up in 3 to 4 days in the neurosurgery outpatient setting with a repeat CT to evaluate, prompting his last visit on 01/21/2025 when we talked to his doctor at the facility who his name is Dr. Ching who asked about his Xarelto and I told her he can resume the Xarelto as of January 17, 2025. Patient's family stated that he had not been started on Xarelto. He underwent a CT scan 01/21/2025 with the assumption that he was started on Xarelto and I wanted to check and see if he had any adverse reactions to Xarelto such as expanding of the hematoma. I reviewed the scan of January 15 and January 21 and I saw a minimal if any significant change in the resolving falx subdural hematoma. Patient was awake and alert and the examination was as above and by the family's assessment he was slowly improving but his rehab management had been interrupted because of a urinary tract infection. He sat up in a chairand he was able to eat and swallow without difficulty. My recommendation was that if he did not start on the Xarelto he could resume the Xarelto with the same dose as on his previous regimen. As he was going to be resuming Xarelto I recommended a CT scan in 2 weeks from now which if done in [place] could be pushed onto our system so we can review it and have a telephone visit with his family and him 2 weeks from now. I discussed the risks of Xarelto as well as risks of not giving it. The family understood and were willing to proceed with the resumption of the Xarelto. His spouse, Moise, is present and reports Sung to be doing well with improvements in his strength and cognition. He has been on Xarelto x2 weeks now. He has been taken off his Gabapentin which she felt was causing him to be confused some. He is residing at [facility] in [place]. Moise states that Sung is doing well with no reports of headaches. He follows up today for imaging review. MEDICATIONS: Keppra: Short course Dexamethasone: No SYMPTOMS: Left sided weakness PREVIOUS CONSERVATIVE TREATMENTS: None SURGICAL RISK: Smoker: Never Diabetic: No Anticoagu (more content not included)... [facility] 02-04-2025 History of Presen t illness Narrative Radiology Service Progress Note PATIENT NAME: Sung Yañez DATE OF SERVICE: February 04, 2025 TIME: 1:48 PM PATIENT IDENTITY VERIFICATION COMPLETED USING TWO (2) IDENTIFIERS: Name and Date of confirmed by patient verbally. FALL SCREENING: Has the patient had 2 falls in the last year or 1 fall with injury or currently using an Ambulatory Assistive Device (Walker, Cane, Wheelchair, Crutches, etc.)? No PATIENT GENDER DATA: Assigned male at PATIENT RELEVANT IMPLANT DATA REVIEWED: Yes PATIENT PRESENTS WITH AN IMPLANTABLE OR ATTACHED SURG PHYSICIAN ASST: No RADIOLOGY DEPARTMENT: CT; Exam(s) Completed: Brain PERIPHERAL IV DATA: Not applicable SIGNED BY: RT Brendan(R) February 04, 2025 1:48 PM documented in this encounter [facility] 02-04-2025 Note HNO ID: [id number] Author: MICHELLE HERRERA RT(R) Service: ? Author Type: Insurance And Financial Services Agent Type: Progress Notes Filed: 02/04/2025 13:49 Note Text: Radiology Service Progress Note PATIENT NAME: Sung Yañez DATE OF SERVICE: February 04, 2025 TIME: 1:48 PM PATIENT IDENTITY VERIFICATION COMPLETED USING TWO (2) IDENTIFIERS: Name and Date of confirmed by patient verbally. FALL SCREENING: Has the patient had 2 falls in the last year or 1 fall with injury or currently using an Ambulatory Assistive Device (Walker, Cane, Wheelchair, Crutches, etc.)? No PATIENT GENDER DATA: Assigned male at PATIENT RELEVANT IMPLANT DATA REVIEWED: Yes PATIENT PRESENTS WITH AN IMPLANTABLE OR ATTACHED SURG PHYSICIAN ASST: No RADIOLOGY DEPARTMENT: CT; Exam(s) Completed: Brain PERIPHERAL IV DATA: Not applicable SIGNED BY: APOLONIA Cardona) February 04, 2025 1:48 PM [facility] 01-21-2025 Telephone encount er Note Returned call to Esme who is caring for Sung at rehab. She left a voice message asking what dosage of Xarelto to start the patient on. I contacted her and told her that this is not a medication that has been prescribed or managed by neurosurgery. The patient was transferred to [facility] from [facility] and the medication had been stopped prior to his discharge and therefore the dosage is not known. She stated that she will contact the nurse practitioner at the rehab facility for further instruction. EDIN Connors Neurosurgery Nurse Practitioner [facility] Sunil Momin 12:26 PM 01/21/2025 [facility] Work Phone: 01-21-2025 Miscellaneous Notes Formattin g of this note might be different from the original. Returned call to Esme who is caring for Sung at rehab. She left a voice message asking what dosage of Xarelto to start the patient on. I contacted her and told her that this is not a medication that has been prescribed or managed by neurosurgery. The patient was transferred to [facility] from [facility] and the medication had been stopped prior to his discharge and therefore the dosage is not known. She stated that she will contact the nurse practitioner at the rehab facility for further instruction. EDIN Connors Neurosurgery Nurse Practitioner [facility] 12:26 PM 01/21/2025 documented in this encounter [facility] 01-21-2025 History of Presen t illness Narrative NEUROSURGERY FOLLOW UP OFFICE NOTE Dr. Mike Padilla MD, [facility] Date of visit: January 21, 2025 Patient Name: Mr.Kenneth Pamela Yañez Date of : 1940 Current Age: [age] year old Sex: male MRN/E# [id number] Last Office Visit: Hospital follow up CHIEF COMPLAINT: Patient presents with: Established Patient SUBJECTIVE: The patient presents as a hospital follow up with imaging (CT B) for evaluation. This is an 84-year-old male with a PMHx of atrial fibrillation (Xarelto), HTN who was seen for consult at [facility] after transfer from an OSH on 12/23/[address] Coppola. The patient presented after a GLF causing him to strike the back of his head. Workup was completed and showed a large right falcine SDH with mass effect and a right subacute/small acute convexity SDH. Xarelto was placed on hold and reversed with Kcentra and he was transferred to [facility] for higher acuity care. No emergent neurosurgical intervention was indicated. He was started on Keppra for seizure prophylaxis. He was monitored in the ICU with frequent neurochecks and serial imaging. NIL was consulted for possible embolization. He developed weakness on the left side but wanted to hold off on any surgery. Serial imaging was obtained and stabilized. No neurosurgical intervention was ultimately warranted. Once medically stable he was cleared for acute rehab with recommendation to hold all blood thinning medications. He was cleared for heparin subcu for DVT prophylaxis. Recommendation was to follow-up in the outpatient setting with a repeat CT for continued monitoring. While in rehab a CT of the head was obtained on 01/15/2025. The facility is attending physician, Dr. Kelly contacted me and reported that there was interval improvement in the right falx/tentorial subdural hematoma and no evidence of acute hemorrhage. 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 Recommendation was for him to follow-up in 3 to 4 days in the neurosurgery outpatient setting with a repeat CT to evaluate prompting his visit today. He states he is doing fair. Reports that he has not had much rehab due to a few setbacks. He does not think that he had resumed his Xeralto. He continues with left sided weakness with the left leg worse than the arm. He presents for image review, evaluation and plan of care. MEDICATIONS: Keppra: Short course Dexamethasone: No SYMPTOMS: Left sided weakness PREVIOUS CONSERVATIVE TREATMENTS: None SURGICAL RISK: Smoker: Never Diabetic: No Anticoagulants / Antiplatelets: Xarelto Occupation: N/A PREVIOUS NEUROSURGERY: None PAIN EVALUATION No data found in the last 1 encounters. PAST MEDICAL HISTORY Diagnosis Date BPH (benign prostatic hyperplasia) Diverticulosis of colon (without mention of hemorrhage) H/O degenerative disc disease Melanoma (HCC) Unspecified essential hypertension PAST SURGICAL HISTORY Procedure Laterality Date COLONOSCOPY FLX DX W/COLLJ SPEC WHEN PFRMD 09/17/03 Colonoscopy COLONOSCOPY FLX DX W/COLLJ SPEC WHEN PFRMD 06/02/2010 Colonoscopy PAST SURGICAL HISTORY OF 05/04 prostate surgery TONSILLECTOMY PRIMARY/SECONDARY <AGE 12 18 months old Tonsillectomy FAMILY HISTORY Problem Relation Age of Onset Colon Cancer Father ALLERGIES No Known Allergies Current Outpatient Medications Medication Sig Dispense Refill bisacodyl (DULCOLAX) 10 mg supp 10 mg by RECTAL route once daily as needed for constipation. magnesium hydroxide (MOM) 400 mg/5 mL suspension Take 30 mL by mouth once daily as needed for constipation. mirtazapine (REMERON) 15 mg tablet Take 15 mg by mouth daily at bedtime. gabapentin (NEURONTIN) 100 mg capsule Take 100 mg by mouth three times a day. magnesium chloride 64 mg magnesium tab Take by mouth. Menthol-Zinc Oxide (CALMOSEPTINE) 0.44-20.6 % Apply to affected area. senna-docusate (SENNA-S) 8.6-50 mg per tablet Take 1 tablet by mouth once daily. pantoprazole (PROTONIX) 40 mg grps Take 40 mg by mouth daily at 6 am. saliva substitute combo no.9 (BIOTENE DRY MOUTH ORAL RINSE) mwsh Use 15 mL as instructed. emollient combination no.119 (EUCERIN ADVANCED REPAIR) crea Apply to affected area. sodium chloride soluble tablet 1 g Take 1 g by mouth three times a day. metoprolol succinate ER (TOPROL XL) 50 mg 24 hr tablet Take 50 mg by mouth once daily. acetaminophen (TYLENOL EXTRA STRENGTH) 500 mg tablet Take 500 mg by mouth every 8 hours as needed for pain. oxyCODONE IR (ROXICODONE) 5 mg immediate release tablet Take 5 mg by mouth every 6 hours as needed for pain. 0 metoprolol succinate ER (TOPROL XL) 25 mg 24 hr tablet Take 25 mg by mouth once daily. No current facility-administered medications for this visit. REVIEW OF SYSTEMS: Review of Systems Constitutional: Negative for chills, diaphoresis (Negative for night sweats.) and fever. HENT: Negative for ear discharge and rhinorrhea. Eyes: Negative for discharge. Respiratory: Negative for cough, shortness of breath and wheezing. Cardiovascular: Negative for chest pain, palpitations and leg swelling. Gastrointestinal: Negative for constipation, diarrhea, nausea and vomiting. Endocrine: Negative for cold intolerance and heat intolerance. Genitourinary: Negative for frequency. Negative for urinary incontinence and urinary retention. Musculoskeletal: Negative for back pain, joint swelling, myalgias and neck pain. Skin: Negative for rash (Negative for hives and skin lesions.). Allergic/Immunologic: Negative for environmental allergies and food allergies. Negative for contact allergy, seasonal allergies. Neurological: Negative for dizziness, seizures, syncope, weakness, light-headedness, numbness (Negative for numbness in extremities.) and headaches. Hematological: Does not bruise/bleed easily. Psychiatric/Behavioral: The patient is not nervous/anxious. Negative for depression. OBJECTIVE: BP 126/81 Pulse 102 Resp 16 SpO2 94% PHYSICAL EXAM: Mental State : Alert. Attention span and concentration normal for patient's age. Speech normal, fluent. No receptive or expressive speech deficit. Recent and remote memory normal. Orientation : Oriented to person, place and time. Higher Cortical Function : Intact speech and language. Comprehension normal. Fund of knowledge intact for pt level of education. Cranial Nerves : II: No visual field cut, no blurring. Makes and sustains eye contact. III, IV, : No double vision or lid drooping. Pupils equal and reactive to light. Extraocular muscles intact. No nystagmus. V: Normal sensation on the face, normal jaw movements. VII: No paresis on either side. VIII: No gross hearing deficit IX: Good and equal shoulder shrugs. XII: Tongue midline, no fasciculations. Sensory: SILT. Normal Sensation in bilateral upper and bilateral lower extremities to touch and noxious stimuli. Motor: Normal muscle tone and bulk. No spasticity, tremor or uncontrollable movements. Strength: Upper Extremities : R L Deltoid 5/5 3/5 Biceps 5/5 3/5 Triceps 5/5 3/5 Wrist Ext 5/5 3/5 Wrist Flx 5/5 3/5 Hand Int 5/5 3/5 Lower Extremities : Hip Flexors 5/5 0/5 Hip Extensors 5/5 0/5 Hip Abductors 5/5 0/5 Straight leg Neg N/A Ankle dorsiflex 5/5 0/5 Ankle Plantar 5/5 0/5 Cerebellar Function : Normal finger to nose. Normal rapid alternating movements. No ataxia. Gait and Station: Unable to assess - on cot. IMAGING: CT brain WO IVCON performed today 01/21/2025 demonstrates: Report is pending. The falcine hematoma is in the stage of resolving. ASSESSMENT/PLAN: 1. SDH (subdural hematoma) (HCC) - ICD9: 432.1, ICD10: S06.5XAA Patient was at [facility] on the trauma service after a fall and hitting the back of his head. Dr. Coppola had seen him in the hospital and patient who had been on Xarelto before had discontinuation of this medication and he was stable and developed weakness in the left upper and lower extremity. Middle meningeal artery embolization was considered at that time but the family declined. He was discharged to rehabilitation in stable condition for his left-sided weakness and he was supposed to be on subcu heparin in the facility he was in but to hold off on Xarelto until he is seen in the clinic. We talked to his doctor at the facility who his name is Dr. Ching who asked about his Xarelto and I told her he can resume the Xarelto as of January 17, 2025. Patient's family today say that he had not been started on Xarelto. He underwent a CT scan here today with the assumption that he was started on Xarelto and I wanted to check and see if he had any adverse reactions to Xarelto such as expanding of the hematoma. I reviewed the scan of January 15 and January 21 and I see a minimal if any significant change in the resolving falx subdural hematoma. Patient is awake and alert and the examination is as above and by the family's assessment he is slowly improving but his rehab management had been interrupted because of a urinary tract infection. He sits up in a chair and he is able to eat and swallow without difficulty. My recommendation is that if he did not start on the Xarelto he can resume the Xarelto with the same dose as on his previous regimen. As he is going to be resuming Xarelto I recommended a CT scan in 2 weeks from now which if done in [place] can be pushed onto our system so we can review it and have a telephone visit with his family and him 2 weeks from now. I discussed the risks of Xarelto as well as risks of not giving it. The family understand and are willing to proceed with the resumption of the Xarelto. - CT BRAIN WO MOHIT Padilla MD FOLLOW UP: Return in about 2 weeks (around 02/04/2025) for review of CT brain and plan of care via telephone. Please Note: This note has been partially generated using [employer], a speech recognition software program, and may contain errors including punctuation, grammar, spelling, gender, and inappropriate words or phrases that pertain to the system. documented in this encounter [facility] 01-21-2025 Note HNO ID: [id number] Author: MIKE PADILLA MD Service: ? Author Type: Physician Type: Progress Notes Filed: 01/21/2025 09:49 Note Text: NEUROSURGERY FOLLOW UP OFFICE NOTE Dr. Mike Padilla MD, FACS Date of visit: January 21, 2025 Patient Name: Mr.Kenneth Pamela Yañez Date of : 1940 Current Age: [age] year old Sex: male MRN/E# [id number] Last Office Visit: Hospital follow up CHIEF COMPLAINT: Patient presents with: Established Patient SUBJECTIVE: The patient presents as a hospital follow up with imaging (CT B) for evaluation. This is an 84-year-old male with a PMHx of atrial fibrillation (Xarelto), HTN who was seen for consult at [facility] after transfer from an OSH on 12/23/[address] Coppola. The patient presented after a GLF causing him to strike the back of his head. Workup was completed and showed a large right falcine SDH with mass effect and a right subacute/small acute convexity SDH. Xarelto was placed on hold and reversed with Kcentra and he was transferred to [facility] for higher acuity care. No emergent neurosurgical intervention was indicated. He was started on Keppra for seizure prophylaxis. He was monitored in the ICU with frequent neurochecks and serial imaging. NIL was consulted for possible embolization. He developed weakness on the left side but wanted to hold off on any surgery. Serial imaging was obtained and stabilized. No neurosurgical intervention was ultimately warranted. Once medically stable he was cleared for acute rehab with recommendation to hold all blood thinning medications. He was cleared for heparin subcu for DVT prophylaxis. Recommendation was to follow-up in the outpatient setting with a repeat CT for continued monitoring. While in rehab a CT of the head was obtained on 01/15/2025. The facility is attending physician, Dr. Kelly contacted me and reported that there was interval improvement in the right falx/tentorial subdural hematoma and no evidence of acute hemorrhage. 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 Recommendation was for him to follow-up in 3 to 4 days in the neurosurgery outpatient setting with a repeat CT to evaluate prompting his visit today. He states he is doing fair. Reports that he has not had much rehab due to a few setbacks. He does not think that he had resumed his Xeralto. He continues with left sided weakness with the left leg worse than the arm. He presents for image review, evaluation and plan of care. MEDICATIONS: Keppra: Short course Dexamethasone: No SYMPTOMS: Left sided weakness PREVIOUS CONSERVATIVE TREATMENTS: None SURGICAL RISK: Smoker: Never Diabetic: No Anticoagulants / Antiplatelets: Xarelto Occupation: N/A PREVIOUS NEUROSURGERY: None PAIN EVALUATION No data found in the last 1 encounters. PAST MEDICAL HISTORY Diagnosis Date BPH (benign prostatic hyperplasia) Diverticulosis of colon (without mention of hemorrhage) H/O degenerative disc disease Melanoma (HCC) Unspecified essential hypertension PAST SURGICAL HISTORY Procedure Laterality Date COLONOSCOPY FLX DX W/COLLJ SPEC WHEN PFRMD 09/17/03 Colonoscopy COLONOSCOPY FLX DX W/COLLJ SPEC WHEN PFRMD 06/02/2010 Colonoscopy PAST SURGICAL HISTORY OF 05/04 prostate surgery TONSILLECTOMY PRIMARY/SECONDARY Tonsillectomy FAMILY HISTORY Problem Relation Age of Onset Colon Cancer Father ALLERGIES No Known Allergies Current Outpatient Medications Medication Sig Dispense Refill bisacodyl (DULCOLAX) 10 mg supp 10 mg by RECTAL route once daily as needed for constipation. magnesium hydroxide (MOM) 400 mg/5 mL suspension Take 30 mL by mouth once daily as needed for constipation. mirtazapine (REMERON) 15 mg tablet Take 15 mg by mouth daily at bedtime. gabapentin (NEURONTIN) 100 mg capsule Take 100 mg by mouth three times a day. magnesium chloride 64 mg magnesium tab Take by mouth. Menthol-Zinc Oxide (CALMOSEPTINE) 0.44-20.6 % Apply to affected area. senna-docusate (SENNA-S) 8.6-50 mg per tablet Take 1 tablet by mouth once daily. pantoprazole (PROTONIX) 40 mg grps Take 40 mg by mouth daily at 6 am. saliva substitute combo no.9 (BIOTENE DRY MOUTH ORAL RINSE) mwsh Use 15 mL as instructed. emollient combination no.119 (EUCERIN ADVANCED REPAIR) crea Apply to affected area. sodium chloride soluble tablet 1 g Take 1 g by mouth three times a day. metoprolol succinate ER (TOPROL XL) 50 mg 24 hr tablet Take 50 mg by mouth once daily. acetaminophen (TYLENOL EXTRA STRENGTH) 500 mg tablet Take 500 mg by mouth every 8 hours as needed for pain. oxyCODONE IR (ROXICODONE) 5 mg immediate release tablet Take 5 mg by mouth every 6 hours as needed for pain. 0 metoprolol succina (more content not included)... [facility] 01-21-2025 Instructions Tatiana Santos APRN.CNP - 01/21/2025 9:30 AM EDT OK to resume blood thinning medications (Xeralto) Follow up CT brain in 2 weeks at [place]. Follow up via telephone. documented in this encounter [facility] 01-21-2025 History of Presen t illness Narrative Radiology Service Progress Note PATIENT NAME: Sung Yañez DATE OF SERVICE: January 21, 2025 TIME: 8:50 AM PATIENT IDENTITY VERIFICATION COMPLETED USING TWO (2) IDENTIFIERS: Name and Date of confirmed by patient verbally. FALL SCREENING: Has the patient had 2 falls in the last year or 1 fall with injury or currently using an Ambulatory Assistive Device (Walker, Cane, Wheelchair, Crutches, etc.)? Yes, Patient High Risk for Falls What interventions were put in place to prevent falls during this visit? Instructed Patient to Call for Help if Needed, Offered Assistance with Transfers/Clothing, Instructed Patient to Remain Seated (Not on Exam Table) Until Exam, and Increased Observations by Caregivers PATIENT GENDER DATA: Assigned male at PATIENT RELEVANT IMPLANT DATA REVIEWED: Not Applicable PATIENT PRESENTS WITH AN IMPLANTABLE OR ATTACHED SURG PHYSICIAN ASST: No RADIOLOGY DEPARTMENT: CT; Exam(s) Completed: Brain PERIPHERAL IV DATA: Not applicable SIGNED BY: RT José Miguel(Dominic) January 21, 2025 8:50 AM documented in this encounter [facility] 01-21-2025 Note HNO ID: [id number] Author: GABY HERNANDEZ RT(R) Service: Radiology Author Type: Technologist Type: Progress Notes Filed: 01/21/2025 08:50 Note Text: Radiology Service Progress Note PATIENT NAME: Sung Yañez DATE OF SERVICE: January 21, 2025 TIME: 8:50 AM PATIENT IDENTITY VERIFICATION COMPLETED USING TWO (2) IDENTIFIERS: Name and Date of confirmed by patient verbally. FALL SCREENING: Has the patient had 2 falls in the last year or 1 fall with injury or currently using an Ambulatory Assistive Device (Walker, Cane, Wheelchair, Crutches, etc.)? Yes, Patient High Risk for Falls What interventions were put in place to prevent falls during this visit? Instructed Patient to Call for Help if Needed, Offered Assistance with Transfers/Clothing, Instructed Patient to Remain Seated (Not on Exam Table) Until Exam, and Increased Observations by Caregivers PATIENT GENDER DATA: Assigned male at PATIENT RELEVANT IMPLANT DATA REVIEWED: Not Applicable PATIENT PRESENTS WITH AN IMPLANTABLE OR ATTACHED SURG PHYSICIAN ASST: No RADIOLOGY DEPARTMENT: CT; Exam(s) Completed: Brain PERIPHERAL IV DATA: Not applicable SIGNED BY: RT José Miguel(R) January 21, 2025 8:50 AM [facility] 01-17-2025 Telephone encount er Note Voicemail left for transportation department at [facility] regarding follow up and CT scan appointments on 01/21. Contact information left for a return call to confirm. Michelle Gale [facility] 01-17-2025 Miscellaneous Notes Formattin g of this note might be different from the original. Voicemail left for transportation department at [facility] regarding follow up and CT scan appointments on 01/21. Contact information left for a return call to confirm. Michelle Gale documented in this encounter [facility] 01-17-2025 Discharge summary Note Date/Time January 17, 2025 11:17am [facility] Medical Records Department [address] [place] [address] Discharge Summary 01/16/25 1224 MR#: [id number] Acct: [id number] Name: SUNG YAÑEZ Rep #:[id number] : [id number] From: Savanna Kelly DO PCP: Dr. Briseida Vergara MD Status:ADM IN Location: [address] Date of Admission: 12/30/24 Date of Discharge: 01/17/25 Primary Care Physician: Dr. Briseida Vergara MD Consultations 01/09/25 11:11 Consult: Pain Management Routine Consulting Provider: Nohelia Aleman Reason for Consult: torticollis EMERGENT Consult: No MD Notified: Yes Date Notified: 01/09/25 Time Notified: 11:11 Method of Notification: Verbal Reason For Visit: SUBDURAL HEMATOMA Diagnosis Discharge Diagnosis (1) Debility: Status: Acute Code(s): R53.81 - Other malaise (2) Intracerebral bleed due to trauma: Status: Acute Code(s): S06.36AA - Traumatic hemorrhage of cerebrum, unspecified, with loss of consciousness status unknown, initial encounter Qualifiers: Encounter type: subsequent encounter Laterality: unspecified laterality Loss of consciousness presence/duration: without LOC Qualified Code(s): S06.360D - Traumatic hemorrhage of cerebrum, unspecified, without loss of consciousness, subsequent encounter Plan: CT head on 01/15/25 shows Interval improvement in the size of the subdural hematoma centered along the R falx and tentorium measuring 5 X 1.6 cm, down from5 X 2.1 cm at presentation to the ED on 12/23/24. (3) Ischemic cerebrovascular accident (CVA): Status: Acute Code(s): I63.9 - Cerebral infarction, unspecified Plan: No initially present at the time of the ICH. CTB on 01/15/25 shows chronic moderate-sized ischemic infarct within the bilateral parietal occipital watershed areas, left greater than right. Mild scattered supratentorial white matter hypodensities and a lacunar infarct in the right basal ganglia. (4) Mild cognitive impairment: Status: Acute Code(s): G31.84 - Mild cognitive impairment of uncertain or unknown etiology (5) Acute left-sided weakness: Status: Acute Code(s): R53.1 - Weakness Plan: Also with some weakness in the RLE (6) Paresthesias: Status: Acute Code(s): R20.2 - Paresthesia of skin Plan: Left face, arm and leg. Has chronic neuropathy in his feet. (7) Depression: Status: Chronic Code(s): F32.A - Depression, unspecified Qualifiers: Depression Type: reactive depression Qualified Code(s): F32.9 - Major depressive disorder, single episode, unspecified Plan: Depression is long standing but, he never sought treatment. Started on Remeron 15 mg at admission to rehab and increased to 22.5 mg on 01/13/25. Would benefit from psychotherapy. He is eating better and not refusing meals any longer. (8) Urinary incontinence: Status: Chronic Code(s): R32 - Unspecified urinary incontinence Qualifiers: Urinary Incontinence type: urinary incontinence without sensory awareness Qualified Code(s): N39.42 - Incontinence without sensory awareness Plan: Incontinent of urine most of the time. Will not even alert nursing when he has been incontinent. The week prior to DC he had been continent a few times but, has been regressing the last 5 -7 days prior to discharge. He denies dysuria and has had no fevers and no leukocytosis. We check a UA prior to DC and it wasnegative for infection. UA showed no evidence of UTI. (9) Fecal incontinence: Status: Chronic Code(s): R15.9 - Full incontinence of feces Qualifiers: Fecal incontinence type: unspecified Qualified Code(s): R15.9 - Full incontinence of feces (10) Essential (primary) hypertension: Status: Chronic Code(s): I10 - Essential (primary) hypertension Plan: Blood pressure was low early in the week of discharge so we have been decreasing the antihypertensives. He is only on Metoprolol at the time of discharged from rehab and this is needed to control the HR with AF. With discontinuation of Lisinopril the BP improved and is within goal at the time of DC from rehab. (11) Paroxysmal atrial fibrillation: Status: Chronic Code(s): I48.0 - Paroxysmal atrial fibrillation Plan: Xarelto has been on hold since the [facility]. He has follow up with Dr. Padilla scheduled 01/28/25 and will defer to Dr. Padilla to restart chronic anticoagulation. The SDH has shrunk from 5x2.1 cm to 5X1.6 cm at DC from rehab. No active bleeding on CTB done 01/15/25. (12) Chronic anticoagulation: Status: Chronic Code(s): Z79.01 - intermediate frame tender (current) use of anticoagulants Plan: Will defer to neurosurgery to determine when he can restart anticoagulation. Heis going to follow up with Dr. Padilla. (13) Peripheral neuropathy: Status: Chronic Code(s): G62.9 - Polyneuropathy, unspecified Qualifiers: Peripheral neuropathy type: polyneuropathy, other Qualified Code(s): G62.89 - Other specified polyneuropathies Plan: Not c/o pain in the legs at the time of DC. He started to c/o pain in the L dulce the left leg while on rehab and this was attributed to central neuropathic pain related to the intracerebral bleed. He was started on Gabapentin 100 mg BID and this has been effective in relieving that pain. (14) PAD (peripheral artery disease): Status: Chronic Code(s): I73.9 - Peripheral vascular disease, unspecified Plan: F/U with vascular as needed. (15) Heme positive stool: Status: Acute Code(s): R19.5 - Other fecal abnormalities Plan: HGB is WNL at 13.2. He has no nausea or abd pain. He was started on a PPI because he was having some N/V early in the admission and he no longer has N/V/heartburn or epigastric pain. (16) Hyponatremia: Status: Acute Code(s): E87.1 - Hypo-osmolality and hyponatremia Plan: W/U consistent with SIADH. Placed on salt tabs and fluid restriction of 1400 cc's daily. Never even comes close to taking 1400 cc's in 24 H. We have been encouraging him to increase his fluid intake to no avail. Sodium on 01/15/25 [id number]. 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 twice daily. (18) Torticollis, acquired: Status: Resolved Code(s): M43.6 - Torticollis Plan: Due to hypertonicity of muscles in the left neck and upper thoracic area relatedto SDH/ischemic CVA's. He had a Botox injection from Dr. Aleman and this has improved significantly. He no longer has torticollis or lateroCollis. Has not had a Muscle relaxer since 01/04/25. (19) Laterocollis: Status: Resolved Code(s): G24.3 - Spasmodic torticollis (20) Acute cystitis with hematuria: Status: Resolved Code(s): N30.01 - Acute cystitis with hematuria Plan: Present at admission to rehab. Due to Enterococcus faecalis. It was sensitive to Macrobid and he was taking Macrobid but when he developed a left basilar pneumonia he was transitioned to Levaquin. He developed acute delirium after a few days on intravenous Levaquin and he was transition from Levaquin to Augmentin to finish appropriate course of treatment for left lower lobe pneumonia and cystitis. (21) Hospital-acquired pneumonia: Status: Acute Code(s): J18.9 - Pneumonia, unspecified organism; Y95 - Nosocomial condition Plan: Resolved with Levaquin and then transition to Augmentin due to acute delirium on Levaquin. (22) Sleep apnea: Status: Chronic Code(s): G47.30 - Sleep apnea, unspecified Qualifiers: Sleep apnea type: obstructive Qualified Code(s): G47.33 - Obstructive sleep apnea (adult) (pediatric) Plan: This was diagnosed many years ago and pt has not been compliant with CPAP and does not wear oxygen when sleeping. He had an overnight trending pulse ox whileon rehab and he had only 1 and 1/2 minutes when O2 sat was 89 or less. There were no desaturation events > 60 sec. Does not need oxygen supplementation at night. (23) Acute delirium: Status: Resolved Code(s): R41.0 - Disorientation, unspecified Plan: due to Levaquin. Resolved with discontinuation of Levaquin. (24) Weight loss, non-intentional: Status: Acute Code(s): R63.4 - Abnormal weight loss Plan: Lost 11 lbs on rehab despite being prescribed supplements by the automotive parts interpreter. Would not eat or drink.......said he had no appetite. Eating better at DC and not refusing meals any longer. (25) Decubitus ulcer: Status: Resolved Code(s): L89.90 - Pressure ulcer of unspecified site, unspecified stage Qualifiers: Laterality: left Pressure injury location: heel Pressure injury stage:stage 1 Qualified Code(s): L89.621 - Pressure ulcer of left heel, stage 1 Plan: Stage 1 left heel. Placed in heel protector and it is no longer boggy to palpation at DC from rehab. (26) Subluxation of left shoulder joint: Status: Acute Code(s): S43.002A - Unspecified subluxation of left shoulder joint, initial encounter Qualifiers: Encounter type: initial encounter Qualified Code(s): S43.002A - Unspecified subluxation of left shoulder joint, initial encounter Plan: Due to CVA/Left hemiparesis. Placed in a rotator cuff sling prior to DC from rehab. (27) Ascending aorta dilation: Status: Chronic Code(s): I77.810 - Thoracic aortic ectasia Plan: found incidentally on a CTA of the H&N. Can be followed as an OP. (28) Pulmonary nodules: Status: Chronic Code(s): R91.8 - Other nonspecific abnormal finding of lung field Plan: Multiple nodules. The largest measures 8 mm. Defer follow up OP. Plan 1. DC to [facility] on 01/17/25. 2. Will need follow up with neurology, cardiology and neurosurgery. At the time of DC from rehab he is still requiring a Jaleel to move him from the bed to a WC. Can not maintain an upright posture while sitting in the WC and would notbe safe. May need to defer follow up until he is able to maintain posture whilesitting in the WC. 3. Family and patient are interested in a palliative care consult. Medications at Discharge Home Medications metoprolol succinate 50 mg tablet,extended release 24 hr 50 mg PO DAILY heart rate 12/30/24 Petrolatum 33% [Eucerin Eqivalent] 1 applic topical QHS #1 oz 01/16/25 acetaminophen 500 mg tablet 1,000 mg (2 x 500 mg) PO Q8 PRN pain/fever #1 TAB 01/16/25 bisacodyl 10 mg rectal suppository 10 mg NE X1 PRN Constipation #0 ea 01/16/25 gabapentin 100 mg capsule 100 mg PO 0600,1800 #0 caps 01/16/25 magnesium chloride 64 mg (magnesium chloride) tablet,delayed release 128 mg (2 x64 mg) PO DAILY #0 tabs 01/16/25 magnesium hydroxide 400 mg/5 mL oral suspension 30 ml PO X1 PRN Constipation #0 mL 01/16/25 menthol 0.44 %-zinc oxide 20.6 % topical ointment (Calmoseptine) 1 applic topical BID #0 grams 01/16/25 metoprolol succinate 25 mg tablet,extended release 24 hr 25 mg PO QHS #0 tabs 01/16/25 mirtazapine 15 mg tablet 22.5 mg (1.5 x 15 mg) PO 2000 #1 TAB 01/16/25 oxycodone 5 mg tablet 5 mg PO Q6H PRN pain 4-10 1 week #10 tabs 01/16/25 pantoprazole 40 mg tablet,delayed release 40 mg PO DAILY #0 tabs 01/16/25 saliva substitute combo no.9 (Biotene Dry Mouth Oral Rinse mouthwash) 15 ml mucous membrane 4X/DAY #0 mL 01/16/25 sennosides 8.6 mg-docusate sodium 50 mg tablet (Stimulant Laxative Plus) 2 tab PO BID #0 tabs 01/16/25 sodium chloride 1,000 mg soluble tablet 1,000 mg PO BID #0 tabs 01/16/25 rivaroxaban 20 mg tablet 20 mg PO QPM #30 tabs 01/17/25 Hospital Course Operations None Procedures None and Electroencephalogram (Had EEG's at [facility] and they were negative for seizures. ) Summary of Care Provided Minutes Spent on Discharge: 48 Hospital Course: SUNG YAÑEZ, is a 84 YO M with a PMH of AF, chronic anticoagulation with Xarelto, BPH, degenerative disc disease, diverticulosis, tobacco dependencein remission, CHRISTOPHER (diagnosed many years ago and non-compliant with CPAP), hiatalhernia, hypertension, and history of melanoma who presented to the ED at [facility] on 12/23/2024 complaining of tingling and weakness on his left side. He related that he had a fall (he struck his head and had a scalp abrasion) on 12/20/2024 and was doing fine until he woke up at 2 AM on the 30th with tingling and numbness on the L side.......it increased in the time it took him to get to the ED by squad. Noncontrast brain CT showed a subdural hematoma on the right measuring 0.5 cm in depth in the temporal region. There was hemorrhage extending along the falx and tentorium on the right with a masslike component posteriorly measuring 5 cm x 2.1 cm. There was a midline shift at the anterior aspect of 0.4 cm towards the left. CTA of the head and neck showed an ascendingaorta which was dilated to 4.1 cm. There was no significant stenosis or occlusion identified in the carotid or vertebral system. NIHSS was 2 for weakness in the left upper extremity and left lower extremity. He was given Kcentra in the emergency department. He also received labetalol for hypertension and Keppra for seizure prophylaxis. He was transferred to [facility] for intracerebral bleed. Neurosurgery was consulted and family declined any surgical intervention. A 20 minute EEG was negative for seizure activity. Continuous EEG also showed no seizure activity. It did show right cerebral hemisphere dysfunction. CT head was repeated at [facility] and it showed a slight increase in size of extensive acute right parafalcine subdural hemorrhage measuring up to 19 mm in thickness. There was a slight increase in the subdural hemorrhage along the right cerebral convexity measuring6 mm, up from 4 mm at [facility]. There was mass effect on the right cerebral convexity with approximately 4 mm of midline shift to the left. This was unchanged. CT brain was repeated on 12/24/2024 and showed a slight decreased size of the parasagittal component of the right subdural hemorrhage with minimal midline shift. There was a stable appearing small left cerebral subdural hemorrhage and right cerebellar subdural hemorrhage. MRI of the brain on December 26 showed no definite acute CVA. There was increased FLAIR signal in themedial right frontal and parietal cortex adjacent to the parafalcine subdural and subarachnoid hemorrhage suspicious for cortical edema. There was a stable appearance of multiple extra-axial hemorrhages along the medial right greater than left falx, overlying the right convexity as well as in the posterior fossa and along the tentorium. He did not require any surgical intervention while at [facility]. He was transferred to the acute inpt rehab unit at [facility] on 7/7/25 for 3 hours of therapy daily to restore function/independence at or near his level prior to the fall on 12/20/24. Ton had a UTI at admission to rehab. He was empirically started on Macrobid. The urine culture grew Enterococcus faecalis and it was sensitive to Macrobid. He developed a cough and CXR showed a Left basilar PNA. He was transition from Macrobid to Levaquin. After a few doses of the Levaquin he had acute delirium and Levaquin was discontinued and he was started on Augmentin which he tolerated well. The delirium resolved with discontinuation of Levaquin. He developed pain in the Left arm and leg and was started on gabapentin 100 mg twice daily for suspected central neuropathic pain. This was effective in relieving that pain. He has chronic pain in his feet secondary to peripheral neuropathy and he is no longer complaining of this since the gabapentin was started. He developed torticollis and laterocollis and rather than starting scheduled muscle relaxers which could potentially increase somnolence a consult was placed for pain management. Dr. Aleman did Botox injections and this was very effective. He is no longer c/o neck pain. The torticollis has resolved. He does still have some L shoulder pain and I think this is due to subluxation of the left shoulder due to profound weakness of the left shoulder girdle. On 01/16/2025 a rotator cuff sling was ordered to prevent subluxation of the joint. 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 He was started on salt tablets 1 g p.o. twice daily and fluid restriction to 1200 cc/day. The sodium came up to 139. Fluid restrictionwas increased to 1400 daily but, most days his intake is less than 1,000 despiteencouragement to drink the 1400 cc/daily. Sodium on 01/15/25 was 134. BUN is stable at 28 and his creatinine is 0.73. The BUN/creatinine ratio is 38.2. He denies lightheadedness. Fluid intake on 01/15/2025 was 1120 cc. At presentation to acute rehab Ton was quite sleepy and difficult to arouse. He slept most of the day and through the night. He would not make eye contact with me. His appetite was very poor and he refused many meals. He wasseen by the automotive parts interpreter and supplements were ordered for him but, he would not eat. He admitted to being depressed and stated this had been going on for some time. He had never been on an antidepressant and had never had psychotherapy/counselling. He was started on Remeron 15 mg QHS. This was later increased to 22.5 mg Q HS. Prior to DC he is eating better and has not recentlybeen refusing meals. He has been more talkative. He tells me now that he wantsto get better and wants to know when he will be able to walk. Getting him to participate with the therapists has been a constant challenge. We are still having to use the Jaleel lift to get him out of bed and into a WC. When he is inthe WC he is not able to sit erect and slumps forward and to the left. He has never been able to stand. He is not able to sit on a shower chair due to lack of truncal control. He has been incontinent of urine and stool and was not ableto notify the nurses when he had been incontinent. This improved to the point where he was sometimes able to use the urinal and sometimes able to tell nursinghe needed to have a BM. He was able to partially dress his upper body but starting on 01/15/25 he was dependent for this again. He is able to feed himselfbut, he prefers his feed him. On 01/16 he did tell the OT in the AM when doing his personal care that he had 2 to have a BM X2 times. At times his voiceprojects well and he is not slurring and at other times he is very soft spoken and difficult to understand. At times he is very alert and at others he will close his eyes and not make eye contact with me. He sleeps a good portion of the day. Does better in the evenings when he has visitors. The last week of admission he c/o an intermittent GARCIA. We ordered a NC CTB and it showed a decrease in the size of the hyperdensity centered along the right falx and tentorium. At presentation to the emergency room initially the subdural hematoma measured 5 cm x 2.1 cm. It now measures 5 cm x 1.6 cm. There was no active bleeding noted. There is mild associated mass effect upon the posterior limb of the right lateral ventricle which was unchanged. The CT now showed chronic moderate-sized ischemic infarcts within the bilateral parietal?occipitalwatershed areas, left greater than right. There was mild scattered supratentorial white matter hypodensities and a lacunar type infarct within the right basal ganglia. It is unknown when the ischemic strokes occurred. On the MRI done on December 26 at [facility] There was no definite acuteinfarct however there was some restricted diffusion along the medial right frontal and parietal lobes interdigitating along the sulci. The ischemic strokes could be related to the rapid reversal of Xarelto with KCENTRA or to emboli from AF. He has been off AC since the ICH was identified. Ton was on Lisinopril 20 mg daily and metoprolol XL 50 mg daily at admission to rehab. The systolic and diastolic were elevated above goal and heart rate was uncontrolled. A second dose of metoprolol XL 25 mg was added to the drug regimen at that time. BP and HR were well controlled however he has had poor oral intake and the last week he was on rehab the BP was low. Lisinopril was discontinued. At the time I am dictating this discharge summary his blood pressure is 126/79 with a heart rate of 92. He is on metoprolol XL 50mg every morning and 25 mg nightly. He denies lightheadedness. At the time of discharge from rehab he is supervision/set up for eating. He requires minimal assistance with grooming. He is max assist for bathing and total assist for upper body dressing and lower body dressing. He also requires total assistance for toileting and toilet transfer. He is not able to shower because he has no truncal control and is not safe to sit on a shower chair. He is able to sit on the edge of the therapy mat at mod/max assist x 1-2 for up to 15 minutes workingon reaching and gaining postural awareness as well as weightbearing in the left upper extremity/elbow. He requires a Jaleel lift for all transfers. He is nonambulatory and cannot stand. Ton was transferred to [facility] on 01/17/25 for additional therapy. The depression seems to be finally improving and he is participating more with the therapists when they are working with him. He was more alert during the day on 01/16 and more talkative. He has a follow up appt with Dr. Padilla from neurosurgery on 01/28/[address] scan of the brain was ordered by Dr. Padilla for that day. I spoke with Dr. Padilla on 01/17/25 and discussed the results of the CT head done on 01/15. He is OK with restarting Anticoagulation. Xarelto 20 mg daily ordered. No loading doses due to recent traumatic intracerebral hemorrhage. We will send the CT images to [facility] so he can view the CTB. Ton has an appt withDr. Padilla on 01/28/[address] and will have a CT head that morning. He will need to be transported by cot because he is not able at this time to sit upright in a WC and maintain his posture. Will get a CBC, CMP and lipid panel after DC to [facility]. The ischemic CVA's are most likely related to AF. He had an intracerebral bleed and had heme + stool early in admission to rehab. No ASA indicated for now. HGB has been stable. Would consider a statin if the LDL is not 70 or less. Physical Exam Const General Appearance: cooperative, ill appearing and other appears stated age HEENT HEENT Narrative: Very dry mucous membranes. No evidence of thrush. Kiana on the hard palate. Eyes PERRL, EOMs intact bilaterally, conjunctivae normal and no scleral icterus Eyes Narrative: No discharge from the eyes. No visual field cuts. Denies any change in his vision. General Eye: normal light reflex Neck supple, No nodes and no carotid bruits Neck Narrative: Left trapezius spasms have resolved. Torticollis and laterocollis resolved withBotox injections by pain management. Head is now on the midline and he denies neck pain. General: trachea midline Chest Chest: symmetrical chest wall rise Resp normal respiratory effort Resp Narrative: Good effort today. No coughing with deep breath. Not tachypneic. No conversational dyspnea. Lungs are CTA. Effort and Inspection: Negative for labored, grunting or actively coughing Cardio no murmurs, no rub and no gallops Cardio Narrative: Irregular irregular rhythm with controlled ventricular response. Known history of atrial fibrillation. Denies chest pain and also denies palpitations and lightheadedness. GI normal to inspection, nondistended, normoactive bowel sounds, soft to palpation and non-tender GI Narrative: No guarding with palpation. Not constipated. Still incontinent of stool. no CVA tenderness Narrative: Denies dysuria. Continues to have urinary incontinence. Back/Spine no CVA tenderness Back/Spine Narrative: Denies pain in his legs. pain in the feet due to peripheral neuropathy has resolved with addition of Gabapentin to the drug regimen. Extremity no pedal edema Extremity Narrative: Superficial varicosities in both lower extremities. Some pitting edema of the left ankle. No calf pain. Denies pain in his feet. The left heel is no longerboggy and he had no pain with palpation today. There is no increased redness ofthe heel. Heel protectors in place on both feet. No openings in the skin. Very diminished pedal pulses in the left foot but, the foot is warm. He had PVR's in 2022 and the MARGE on the R was 1.1 and on the left it was decreased at 0.74 consistent with moderate arterial insufficiency. He started to have Left shoulder pain and this was felt to be due to subluxation of the L shoulder due to severe weakness of the L shoulder girdle. He is now in a rotator cuff sling. Skin General Skin Exam: Negative for jaundice Rashes: no rashes Hair: general thinning Neuro oriented x3 and CN's II-XII intact bilaterally Neuro Narrative: Tongue protrudes on the midline. Intact sensation in the face. Has some Left shoulder shrug now and has some tone in the L biceps. He is able to lift the L forearm off the bed at the elbow but, if I lift and extend the left arm it fallsimmediately to the bed. Fair ceo and co founder strength in the L hand now. He can internally and externally rotate the Left forearm from the elbow distally. Has some tone in the left triceps as well now. Has decreased sensation in the LE's distally in a stocking distribution and he has known hx of peripheral neuropathy. He has NO movement in the left LE. He is unable to lift the RLE off the bed but, he can move it side to side and he has some weak dorsiflexion and plantar flexion of the R foot. No sensory loss proximal to the knees. No extinction. Can not test the side for ataxia due to severe weakness. Able to read all the sentences on the NIHSS and identify all the pictures. No visual side neglect. He does not speak up and slurs some but, when you ask him to speak up and enunciate this improves. Able to follow commands. Unable to maintain posture when his head is elevated due to poor truncal support. Leans heavily to the left. Meningeal Signs: no meningeal signs and nuccal rigidity Psych Psych Narrative: He ate 75-100% of his last 4 meals. Sleeping well at night. More alert during the day and more interactive. Not outwardly anxious. Affect is still flat. Currently on Remeron 22.5 mg (Remeron was started on 12/31/24. No agitation and no sundowning. Appearance: grossly normal and appropriate Activity / Motor Behavior: psychomotor slowing and other Keeps his eyes closed most of the time I am talking with him unless I ask him to look at me. Speech: slow and soft Mood & Affect: depressed Weight / BMI Weight Weight: 191 lb 2.252 oz Body Mass Index (BMI) 23.8 ABG / Lab / Microbiology Data 01/15/25 05:29 01/15/25 05:29 Microbiology: Microbiology 12/31/24 15:00 Urine Catheter - Catheter Urine Culture - Final Enterococcus faecalis 01/01/25 06:58 Stool Stool Occult Blood (AMOS) - Final Occult Blood Positive Radiography Diagnostic Testing: Radiology Impression Brain CT 01/15/25 12:32 IMPRESSION: 1. No new or enlarging acute intracranial finding. 2. Interval improvement in the right falx/tentorial subdural hematoma as described. 3. Additional chronic findings as described. Reading Location: [facility] Indicators for Scoring Admitted with or Primary Diagnosis of CVA/Stroke: No (multiple SDH's and SAH with foacl neurologic deficits. ) Hx of CVA/Stroke: No Modified Trimble Score MRS Score at time of Evaluation: 5-Severe disability NIHSS NIHSS 1a. Level of Consciousness: 0 - Alert; keenly responsive 1b. LOC Questions: 0 - Answers BOTH questions correctly 1c. LOC Commands: 0 - Performs BOTH tasks correctly 2. Best Gaze: 0 - Normal 3. Visual: 0 - No visual loss 4. Facial Palsy: 0 - Normal symmetrical movements 5a. Left Arm: 2 - Some effort against gravity; (He can lift the forearm off the bed at the elbow. If I lift his arm off the bed it falls immediately to the bed. ) 5b. Right Arm: 0 - No drift; arm holds 90 (or 45) degrees for full 10 seconds 6a. Left Le - No movement 6b. Right Le - No effort against gravity; leg falls to bed immediately (He has some side to side movement on the bed. He has some weak plantar and dorsiflexion of the R foot. ) 7. Limb Ataxia: 0 - Absent (unable to test the left side due to weakness. No ataxia on the R side. ) 8. Sensory: 1 - Lfkg-om-fwhpuogh sensory loss; (He has decreased sensation in both LE's distal to the knee which is chronic and he has been diagnosed with peripheral neuropathy. ) 9. Best Language: 0 - No aphasia; normal 10. Dysarthria: 1 = Zpvm-lc-vyhuamsb dysarthria; 11. Extinction and Inattention: 0 - No abnormality Total: 11 D/C Instructions Diet Diet Order/Speech Therapy: INPATIENT Hospital Diet / Speech Therapy Order(s) 12/30/24 18:38 Diet: Cardiac - Heart Healthy Type of Dietary Supplement:: Ensure Plus High Protein Fluid restriction:: 1400 mL Diet Comments: 240ml nuha EPHP with lunch// Chocolate ensure milkshake with dinner Discharge order: Continue INPATIENT Hospital Diet / Speech Therapy Orders: Yes DC O2, CPAP, BIPAP Needs RN Home O2 qualification: 2 No Data to Display PSN CPAP & BiPAP: BiPAP & CPAP Settings per PSN Fraction of Inspired Oxygen ( 94 01/05/25 22:00 FIO2) Home O2 Discharge instructions: No Please Follow Up With: Dr. Padilla Meaningful Use Info Meaningful Use Meaningful Use Diagnoses (Choose all that apply): Hemorrhagic CVA (Traumatic ICHin pt on Xarelto was admitting diagnosis to rehab. Has had ischemic infarcts.....unknown when this happened. Primary dx for rehab is intracerebral hemorrhage. ) and Ischemic CVA CVA Therapy Assessed for PT,OT and/or ST?: Yes Ischemic Stroke Antithrombotic order at d/c?: No Reason antithrombotic not ordered: Medical Contraindication (CVA more likely than not due to AF. Had recent traumatic ICH and he has had heme + stool. He is going to be discharged on Xarelto. ) Dx of Atrial fib/flutter?: Yes Anticoagulant at discharge?: Yes Statin Dosing Therapy Reference: STATIN DOSE THERAPY REFERENCE: * Patients > 75 years receive moderate or high dose statin therapy. * Patients 75 years or YOUNGER should receive HIGH intensity statin dose unless contraindicated. You will be required to document reason for non-treatment if statin daily dose does not meet guidelines. HIGH DOSE STATIN THERAPY DAILY Atorvastatin > than or = to 40 mg Rosuvastatin > than or = to 20 mg Amlodipine + Atorvastatin > than or = to 2.5/40 mg Ezetimibe + Simvastatin 10/80 mg Simvastatin 80mg Statins at discharge?: No Reason Statin not ordered: Treatment not Indicated (No recent lipid panel. Orders placed for him to have a Lipid panel and a liver panel at [facility]. If the LDL is > 70 would add a statin to the current drug regimen. ) Primary Dx Acute Ischemic CVA?: No IV thrombolytic ordered during stay?: No Discharge Plan Admission Admit Date/Time: 12/30/24 18:14 Primary Reason for Your Visit: Debility due to intracerebral bleed. Attending Provider: Savanna Kelly Primary Care Provider: Briseida Vergara Consulting Providers: Nohelia Aleman Instructions Additional Instructions / Restrictions: 1. He will need to follow up with Mateo Crane NP from [facility] at some point. currently not able to sit in a WC and maintain and upright posture. 2. He has an appt with Dr. Padilla (neurosurgery) scheduled. Will defer restarting Xarelto to Dr. Padilla. 3. He should also follow up with neurology as an OP. 4. He has subluxation/pain of the Left shoulder and was placed in a rotator cuff sling on 01/16/25 to help with this. Subluxation is due to Severe weakness of the left arm........can only really flex his fingers weakly at the time of [facility] rehab. 5. He is incontinent of stool and urine. 6. He had a stage I decub of the left heel which has resolved. 7. He is severely depressed. Now up to 22.5 mg of Remeron at HS. Appetite hasimproved and he rarely refuses a meal now. Has lost 11 lbs form 12/30/24 to 01/14/25. 8. CT scan on 01/15/25 shows the subdural hematoma is decreasing in size and there are no new or enlarging acute intracranial findings. Unfortunately the CTscan shows chronic moderate-sized ischemic infarct within the bilateral parietal?occipital watershed areas, left greater than right. There are mild scattered supratentorial white matter hypodensities and a lacunar type infarct within the right basal ganglia. MRI on 12/26/24 at previous hospital did not clearly show any ischemic infarcts. These may have occurred following KCENTRA and withholding anticoagulation due to the bleeding. This helps to explain why he really has not made much progress on rehab. 9. BP has recently been on the low side and Lisinopril was discontinued on . BP at [place] is better and within goal of < 130/80. 10. He had acute cystitis and LLL PNA while on rehab. He had Delirium with Levaquin and it resolved with discontinuation of the drug. 11. Spoke with Dr. Padilla on 01/17/25 and we are going to restart anticoagulation with Xarelto 20 mg daily.......no loading doses due to hx of ICH. He has an appt with Dr. Padilla on 01/28/25 and will have a repeat CT brain that morning. He will need to be transported on a cot because he is unable to maintina an upright posture sitting in a WC.....he slumps forward and to the left. Discharge Orders/Prescriptions Prescriptions: New bisacodyl 10 mg Suppository 10 mg NE X1 PRN (Reason: Constipation) Qty: 0 0RF magnesium hydroxide 400 mg/5 mL Suspension 30 ml PO X1 PRN (Reason: Constipation) Qty: 0 0RF mirtazapine 15 mg Tablet 22.5 mg PO 2000 Qty: 1 0RF gabapentin 100 mg Capsule 100 mg PO 0600,1800 Qty: 0 0RF metoprolol succinate 25 mg Tablet Extended Release 24 Hr 25 mg PO QHS Qty: 0 0RF magnesium chloride 64 mg Tablet,Delayed Release (Dr/Ec) 128 mg PO DAILY Qty: 0 0RF menthol-zinc oxide [Calmoseptine] 0.44-20.6 % Ointment 1 applic topical BID Qty: 0 0RF Protocol: *Topical Application Instructions APPLICATION INSTRUCTIONS: Coccyx sennosides-docusate sodium [Stimulant Laxative Plus] 8.6-50 mg Tablet 2 tab PO BID Qty: 0 0RF pantoprazole 40 mg Tablet,Delayed Release (Dr/Ec) 40 mg PO DAILY Qty: 0 0RF Biotene Dry Mouth Oral Rinse Mouthwash 15 ml mucous membrane 4X/DAY Qty: 0 0RF Petrolatum 33% [Eucerin Eqivalent] 1 applic topical QHS Qty: 1 0RF Rx Instructions: apply to the distal LE's from the knee to the toes. sodium chloride 1,000 mg Tablet,Soluble 1,000 mg PO BID Qty: 0 0RF rivaroxaban 20 mg tablet 20 mg PO QPM Qty: 30 0RF Rx Instructions: must administer with evening meal Continued metoprolol succinate 50 mg tablet extended release 24 hr 50 mg PO DAILY Changed acetaminophen 500 mg tablet 1,000 mg PO Q8 PRN (Reason: pain/fever) Qty: 1 0RF oxycodone 5 mg tablet 5 mg PO Q6H PRN (Reason: pain 4-10) 7 Days Qty: 10 0RF Discontinued lisinopril 20 mg tablet 20 mg PO DAILY Qty: 90 3RF cyclobenzaprine 5 mg tablet 5 mg PO TID PRN (Reason: muscle spasm) Mag Glycinate 100 mg tablet 200 mg PO DAILY Referrals / Follow Up: Hi Mckeon [Other] - 01/28/25 11:[address] Scan [Other] - 01/28/25 10:45 am Mateo Crane NP, [facility]AD[facility] [Med Staff - Adv Practice Prof] - 02/11/25 10:00 am Disposition Disposition (needs filled in before D/C Order can be placed): Longterm Facility Charges/Coding Visit Charges Inpatient E&M: 31358 Disch Hosp >30min 01/17/25 1117 <Electronically signed by Savanna Kelly DO> Cosigner Signature (if applicable): CC: Dr. Briseida Vergara MD; Dr. Savanna Kelly DO~ Signed [facility] Work Phone: [phone] Discharge summary Author Savanna Kelly [facility] Note Date/Time January 17, 2025 11:0 9am [facility] Medical Records Department [address] [place] [address] Transfer to [facility] MR#: [id number] Acct: [id number] Name: SUNG YAÑEZ Rep #:[id number] : 1940 84 From: Savanna Kelly DO PCP: Dr. Briseida Vergara MD Status:ADM IN Certification of patient admission REQUIRED AT TIME OF ADMISSION. I CERTIFY THAT POST-HOSPITAL ECF SERVICES ARE REQUIRED TO BE GIVEN ON AN IN-PATIENT BASIS BECAUSE OF THE ABOVE NAMED PATIENT'S NEED FOR ASSISTED CARE ON A CONTINUING BASIS FOR THE CONDITION(S) FOR WHICH HE/SHE WAS RECEIVING IN-PATIENT HOSPITAL SERVICES PRIOR TO HIS/HER TRANSFER TO THE ECF. 01/16/25 1223<Electronically signed by Savanna Kelly DO> Diet Diet Order/Speech Therapy: INPATIENT Hospital Diet / Speech Therapy Order(s) 12/30/24 18:38 Diet: Cardiac - Heart Healthy Type of Dietary Supplement:: Ensure Plus High Protein Fluid restriction:: 1400 mL Diet Comments: 240ml nuha EPHP with lunch// Chocolate ensure milkshake with dinner Routine Orders/Code Status Enema Type: Fleetz Enema Frequency: Daily PRN Suppository Type: Dulcolax 10mg Suppository Frequency: Daily PRN Code Status: Full Code DC O2, CPAP, BIPAP needs Home O2 Discharge instructions: No Wound(s) LL Back: Wound Type: Skin Tear Suggestions for Active Care Change Position every (hours): 2 Therapies Weight Bearing: Weight bearing as tolerated (no weight bearing restrictions. Heis still requiring a jaleel lift to get him from the bed to the at the time ofDC from rehab. ) Extremity Affected:: Bilateral Lower and Left Upper Physical Therapy: Eval and Treat Occupational Therapy: Eval and Treat Speech Therapy: Eval and Treat Problem/Diagnosis (1) Debility: Status: Acute Code(s): R53.81 - Other malaise (2) Intracerebral bleed due to trauma: Status: Acute Code(s): S06.36AA - Traumatic hemorrhage of cerebrum, unspecified, with loss of consciousness status unknown, initial encounter Comment: Due to a fall on 12/20/2024 causing him to strike his head in pt on chronic anticoagulation with Xarelto. SDH's, SAH. No surgical intervention was done. (3) Ischemic cerebrovascular accident (CVA): Status: Acute Code(s): I63.9 - Cerebral infarction, unspecified Comment: F/U [place] CTB on 01/15/25 showed chronic moderate-sized ischemic infarcts within theparietal-occipital watershed areas and a lacunar infarct in the R basal ganglia. (4) Mild cognitive impairment: Status: Acute Code(s): G31.84 - Mild cognitive impairment of uncertain or unknown etiology (5) Acute left-sided weakness: Status: Acute Code(s): R53.1 - Weakness (6) Paresthesias: Status: Acute Code(s): R20.2 - Paresthesia of skin Comment: chronic paresthesias in the BL LE's. New numbness in the Left face and the LUE. (7) Depression: Status: Chronic Code(s): F32.A - Depression, unspecified Plan: Depression is long standing but, he never sought treatment. Started on Remeron 15 mg at admission to rehab and increased to 22.5 mg on 01/13/25. Would benefit from psychotherapy. (8) Urinary incontinence: Status: Chronic Code(s): R32 - Unspecified urinary incontinence Plan: Incontinent of urine most of the time. Will not even alert nursing when he has been incontinent. The week prior to DC he had been continent a few times but, has been regressing the last 5 -7 days prior to discharge. He denies dysuria and has had no fevers and no leukocytosis. We check a UA prior to DC and it wasnegative for infection. (9) Fecal incontinence: Status: Chronic Code(s): R15.9 - Full incontinence of feces (10) Essential (primary) hypertension: Status: Chronic Code(s): I10 - Essential (primary) hypertension Plan: Blood pressure was low early in the week of discharge so we have been decreasing the antihypertensives. He is only on Metoprolol at the time of discharged from rehab and this is needed to control the HR with AF. With discontinuation of Lisinopril the BP improved and is within goal at the time of DC from rehab. (11) Paroxysmal atrial fibrillation: Status: Chronic Code(s): I48.0 - Paroxysmal atrial fibrillation Plan: Xarelto has been on hold since the [facility]. He has follow up with Dr. Padilla scheduled and will defer to Dr. Padilla to restart chronic anticoagulation. Comment: diagnosed 2011 (12) Chronic anticoagulation: Status: Chronic Code(s): Z79.01 - intermediate frame tender (current) use of anticoagulants Plan: Will defer to neurosurgery to determine when he can restart anticoagulation. Heis going to follow up with Dr. Padilla. Comment: Xarelto....currently on hold due to intracerebral bleeding. (13) Peripheral neuropathy: Status: Chronic Code(s): G62.9 - Polyneuropathy, unspecified Plan: Not c/o pain in the legs at the time of DC. He started to c/o pain in the L dulce the left leg while on rehab and this was attributed to central neuropathic pain related to the intracerebral bleed. He was started on Gabapentin 100 mg BID and this has been effective in relieving that pain. Comment: Likely due to LS DJD/DDD/chronic back pain. (14) PAD (peripheral artery disease): Status: Chronic Code(s): I73.9 - Peripheral vascular disease, unspecified Comment: Arterial 11/03/22: Right MARGE 1.1, normal. Doppler/PVR waveforms of the right ankle normal at rest. TBI diminished, pedal/digit disease Left MARGE 0.74, moderate arterial insufficiency. Doppler/PVR waveforms of the left ankle moderately diminished at rest. (15) Heme positive stool: Status: Acute Code(s): R19.5 - Other fecal abnormalities Plan: HGB is WNL. He has no nausea or abd pain. He was started on a PPI because he was having some N/V early in the admission and he no longer has N/V/heartburn orepigastric pain. (16) Hyponatremia: Status: Acute Code(s): E87.1 - Hypo-osmolality and hyponatremia Plan: W/U consistent with SIADH. Placed on salt tabs and fluid restriction of 1400 cc's daily. Never even comes close to taking 1400 cc's in 24 H. We have been encouraging him to increase his fluid intake to no avail. Sodium on 01/15/25 [id number]. 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 twice daily. (18) Torticollis, acquired: Status: Resolved Code(s): M43.6 - Torticollis Plan: Due to hypertonicity of muscles in the left neck and upper thoracic area. He had a Botox injection from Dr. Aleman and this is improved significantly. He nolonger has torticollis or lateral James. (19) Laterocollis: Status: Resolved Code(s): G24.3 - Spasmodic torticollis (20) Acute cystitis with hematuria: Status: Resolved Code(s): N30.01 - Acute cystitis with hematuria Plan: Present at admission to rehab. Due to Enterococcus faecalis. It was sensitive to Macrobid and he was taking Macrobid but when he developed a left basilar pneumonia he was transitioned to Levaquin. He developed acute delirium after a few days on intravenous Levaquin and he was transition from Levaquin to Augmentin to finish appropriate course of treatment for left lower lobe pneumonia and cystitis. (21) Hospital-acquired pneumonia: Status: Acute Code(s): J18.9 - Pneumonia, unspecified organism; Y95 - Nosocomial condition Plan: Resolved with Levaquin eith transition to Augmentin due to acute delirium on Levaquin. (22) Sleep apnea: Status: Chronic Code(s): G47.30 - Sleep apnea, unspecified Plan: This was diagnosed many years ago and pt has not been compliant with CPAP and does not wear oxygen when sleeping. He had a overnight trending pulse ox while on rehab and he had only 1 and 1/2 minutes when O2 sat was 89 or less. There were no desaturation events > 60 sec. Does not need oxygen supplementation at night. Comment: Does not wear CPAP and does not wear oxygen anytime he is sleeping. (23) Acute delirium: Status: Resolved Code(s): R41.0 - Disorientation, unspecified Plan: due to Levaquin. Resolved with discontinuation of Levaquin. (24) Weight loss, non-intentional: Status: Acute Code(s): R63.4 - Abnormal weight loss Comment: weight decreased 11 lbs while on rehab due to poor appetite and intake. supplements were provided. (25) Decubitus ulcer: Status: Resolved Code(s): L89.90 - Pressure ulcer of unspecified site, unspecified stage Plan: Stage 1 left heel. Placed in heel protector and it is no longer boggy to palpation at DC from rehab (26) Subluxation of left shoulder joint: Status: Acute Code(s): S43.002A - Unspecified subluxation of left shoulder joint, initial encounter Plan: due to CVA/Left hemiparesis. Placed in a rotator cuff sling prior to DC from rehab. Plan 1. DC to [facility] on 01/17/25. 2. Allergies/Procedures Done in Hospital Allergies levofloxacin (From [facility]) Adverse Reaction (Verified 01/14/25 15:15) acute delirium Procedures: None Type of Care/Length of Stay Estimated LOS: Convalescent Care Less Than 30 days Type of Care Needed: Skilled Rehab Potential: Fair ( ) Prognosis: Fair Additional Orders/Day of Discharge Additional Orders: He needs to be evaluated and treated by psych. H&P will serve as current which was dated: 12/31/24 Day of Discharge: 01/17/25 Dietary and Speech Recommendations Dietitian Recommendations/Changes: Continue Cardiac diet to manage medial conditions with 1400ml fluid restriction. Will order chocolate ensure milkshake with dinner. Will order 240ml chocolate EPHP with lunch. Will discontinue ensure clear with medpass due to pt refusing. Will monitor weight trends. Follow Up Care Please Follow Up With: Dr. Padilla When: 01/28/25 at 11:30AM Please Follow Up With: Philip Villa MD Please Follow Up With: Mateo Crane NP, ETL LEAD-C Discharge Plan Admission Admit Date/Time: 12/30/24 18:14 Primary Reason for Your Visit: Debility due to intracerebral bleed. Attending Provider: Savanna Kelly Primary Care Provider: Briseida Vergara Consulting Providers: Nohelia Aleman Instructions Additional Instructions / Restrictions: 1. He will need to follow up with Mateo Crane NP from [facility] at some point. currently not able to sit in a WC and maintain and upright posture. 2. He has an appt with Dr. Padilla (neurosurgery) scheduled. Will defer restarting Xarelto to Dr. Padilla. 3. He should also follow up with neurology as an OP. 4. He has subluxation/pain of the Left shoulder and was placed in a rotator cuff sling on 01/16/25 to help with this. Subluxation is due to Severe weakness of the left arm........can only really flex his fingers weakly at the time of [facility] rehab. 5. He is incontinent of stool and urine. 6. He had a stage I decub of the left heel which has resolved. 7. He is severely depressed. Now up to 22.5 mg of Remeron at HS. Appetite hasimproved and he rarely refuses a meal now. Has lost 11 lbs form 12/30/24 to 01/14/25. 8. CT scan on 01/15/25 shows the subdural hematoma is decreasing in size and there are no new or enlarging acute intracranial findings. Unfortunately the CTscan shows chronic moderate-sized ischemic infarct within the bilateral parietal?occipital watershed areas, left greater than right. There are mild scattered supratentorial white matter hypodensities and a lacunar type infarct within the right basal ganglia. MRI on 12/26/24 at previous hospital did not clearly show any ischemic infarcts. These may have occurred following [facility] and withholding anticoagulation due to the bleeding. This helps to explain why he really has not made much progress on rehab. 9. BP has recently been on the low side and Lisinopril was discontinued on . BP at [facility] is better and within goal of < 130/80. 10. He had acute cystitis and LLL PNA while on rehab. He had Delirium with Levaquin and it resolved with discontinuation of the drug. Discharge Orders/Prescriptions Prescriptions: New bisacodyl 10 mg Suppository 10 mg NE X1 PRN (Reason: Constipation) Qty: 0 0RF magnesium hydroxide 400 mg/5 mL Suspension 30 ml PO X1 PRN (Reason: Constipation) Qty: 0 0RF mirtazapine 15 mg Tablet 22.5 mg PO 2000 Qty: 1 0RF gabapentin 100 mg Capsule 100 mg PO 0600,1800 Qty: 0 0RF metoprolol succinate 25 mg Tablet Extended Release 24 Hr 25 mg PO QHS Qty: 0 0RF magnesium chloride 64 mg Tablet,Delayed Release (Dr/Ec) 128 mg PO DAILY Qty: 0 0RF menthol-zinc oxide [Calmoseptine] 0.44-20.6 % Ointment 1 applic topical BID Qty: 0 0RF Protocol: *Topical Application Instructions APPLICATION INSTRUCTIONS: Coccyx sennosides-docusate sodium [Stimulant Laxative Plus] 8.6-50 mg Tablet 2 tab PO BID Qty: 0 0RF pantoprazole 40 mg Tablet,Delayed Release (Dr/Ec) 40 mg PO DAILY Qty: 0 0RF Biotene Dry Mouth Oral Rinse Mouthwash 15 ml mucous membrane 4X/DAY Qty: 0 0RF Petrolatum 33% [Eucerin Eqivalent] 1 applic topical QHS Qty: 1 0RF Rx Instructions: apply to the distal LE's from the knee to the toes. sodium chloride 1,000 mg Tablet,Soluble 1,000 mg PO BID Qty: 0 0RF Continued metoprolol succinate 50 mg tablet extended release 24 hr 50 mg PO DAILY Changed acetaminophen 500 mg tablet 1,000 mg PO Q8 PRN (Reason: pain/fever) Qty: 1 0RF oxycodone 5 mg tablet 5 mg PO Q6H PRN (Reason: pain 4-10) 7 Days Qty: 10 0RF Discontinued lisinopril 20 mg tablet 20 mg PO DAILY Qty: 90 3RF cyclobenzaprine 5 mg tablet 5 mg PO TID PRN (Reason: muscle spasm) Mag Glycinate 100 mg tablet 200 mg PO DAILY Referrals / Follow Up: Hi Mckeon [Other] - 01/28/25 11:[address] Scan [Other] - 01/28/25 10:45 am Briseida Vergara MD [Primary Care Provider] - (PT GOING TO SNF ) Disposition Disposition (needs filled in before D/C Order can be placed): Longterm Facility (2) Intracerebral bleed due to trauma Qualifiers: Encounter type: subsequent encounter Laterality: unspecified laterality [place] consciousness presence/duration: without LOC Qualified Code(s): S06.360D - Traumatic hemorrhage of cerebrum, unspecified, without loss of consciousness, subsequent encounter (7) Depression Qualifiers: Depression Type: reactive depression Qualified Code(s): F32.9 - Major depressive disorder, single episode, unspecified (8) Urinary incontinence Qualifiers: Urinary Incontinence type: urinary incontinence without sensory awareness Qualified Code(s): N39.42 - Incontinence without sensory awareness (9) Fecal incontinence Qualifiers: Fecal incontinence type: unspecified Qualified Code(s): R15.9 - Full incontinence of feces (13) Peripheral neuropathy Qualifiers: Peripheral neuropathy type: polyneuropathy, other Qualified Code(s): G62.89 - Other specified polyneuropathies (22) Sleep apnea Qualifiers: Sleep apnea type: obstructive Qualified Code(s): G47.33 - Obstructive sleep apnea (adult) (pediatric) (26) Subluxation of left shoulder joint Qualifiers: Encounter type: initial encounter Qualified Code(s): S43.002A - Unspecified subluxation of left shoulder joint, initial encounter 01/16/25 1223 <Electronically signed by Savanna Kelly DO> Cosigner Signature (if applicable): CC: Dr. Nohelia Aleman MD; Dr. Briseida Vergara MD ~ ADDENDUM by Dr. Savanna Kelly DO on 01/17/25 at 1109 Addendum CBC, Lipid panel and CMP following admission to [facility]. Has had ischemic CVA's. Goal for the LDL is 70 or less. 01/17/25 1109 <Electronically signed by Savanna Kelly DO> cc: Dr. Nohelia Aleman MD; Dr. Briseida Vergara MD ~* Signed [facility] Work Phone: [phone]) 793-131607-25-2025 Telephone encounter Note* Telephone Encounter - Tatiana Santos APRN.CNP - 01/17/2025 11:19 AM EDT Returned call to Dr. Iman Kelly ([phone]). She spoke with me and Dr. Padilla via speaker phone to discuss the patients recent CT B results. She was concerned that there was evidence of a new ischemic stroke. She stated that the CT appeared to be improving in regard to th bleed and that it had decreased in size and density. She asked if it was ok to resume AC/AP. Dr. Padilla cleared the patient to resume blood thinners given his cardiac history, A-fib. He asked that Sung be transferred to the office for a repeat CT B and evaluation on Monday01/21/25 and to monitor for any new bleeding following the resumption of blood thinners. She agreed to have him transferred for a visit. EDIN Connors Neurosurgery Nurse Practitioner [facility] 11:23 AM 01/17/2025 [facility]07-25-2025 Miscellaneous Notes* Telephone Encounter - Tatiana Santos APRN.CNP - 01/17/2025 11:19 AM EDT Returned call to Dr. Iman Kelly ([phone]). She spoke with me and Dr. Padilla via speaker phone to discuss the patients recent CT B results. She was concerned that there was evidence of a new ischemic stroke. She stated that the CT appeared to be improving in regard to th bleed and that it had decreased in size and density. She asked if it was ok to resume AC/AP. Dr. Padilla cleared the patient to resume blood thinners given his cardiac history, A-fib. He asked that Sung be transferred to the office for a repeat CT B and evaluation on Monday01/21/25 and to monitor for any new bleeding following the resumption of blood thinners. She agreed to have him transferred for a visit. EDIN Connors Neurosurgery Nurse Practitioner [facility] 11:23 AM 01/17/2025 documented in this encounterUniversity [facility]als [facility] Discharge summary [facility] Medical Records Department [address] [place] [address] Discharge Summary 01/16/25 1224 MR#: [id number] Acct: [id number] Name: SUNG YAÑEZ Rep #:[id number] : 1940 84 From: Savanna Kelly DO PCP: Dr. Briseida Vergara MD Status:ADM IN Location: [facility] [id number] Providers Date of Admission: 12/30/24 Date of Discharge: 01/17/25 Primary Care Physician: Dr. Briseida Vergara MD Consultations 01/09/25 11:11 Consult: Pain Management Routine Consulting Provider: Nohelia Aleman Reason for Consult: torticollis EMERGENT Consult: No MD Notified: Yes Date Notified: 01/09/25 Time Notified: 11:11 Method of Notification: Verbal Reason For Visit: SUBDURAL HEMATOMA Diagnosis Discharge Diagnosis (1) Debility: Status: Acute Code(s): R53.81 - Other malaise (2) Intracerebral bleed due to trauma: Status: Acute Code(s): S06.36AA - Traumatic hemorrhage of cerebrum, unspecified, with loss of consciousness status unknown, initial encounter Qualifiers: Encounter type: subsequent encounter Laterality: unspecified laterality Loss of consciousness presence/duration: without LOC Qualified Code(s): S06.360D - Traumatic hemorrhage of cerebrum, unspecified, without loss of consciousness, subsequent encounter Plan: CT head on 01/15/25 shows Interval improvement in the size of the subdural hematoma centered along the R falx and tentorium measuring 5 X 1.6 cm, down from5 X 2.1 cm at presentation to the ED on 12/23/24. (3) Ischemic cerebrovascular accident (CVA): Status: Acute Code(s): I63.9 - Cerebral infarction, unspecified Plan: No initially present at the time of the ICH. CTB on 01/15/25 shows chronic moderate-sized ischemic infarct within the bilateral parietal occipital watershed areas, left greater than right. Mild scattered supratentorial white matter hypodensities and a lacunar infarct in the right basal ganglia. (4) Mild cognitive impairment: Status: Acute Code(s): G31.84 - Mild cognitive impairment of uncertain or unknown etiology (5) Acute left-sided weakness: Status: Acute Code(s): R53.1 - Weakness Plan: Also with some weakness in the RLE (6) Paresthesias: Status: Acute Code(s): R20.2 - Paresthesia of skin Plan: Left face, arm and leg. Has chronic neuropathy in his feet. (7) Depression: Status: Chronic Code(s): F32.A - Depression, unspecified Qualifiers: Depression Type: reactive depression Qualified Code(s): F32.9 - Major depressive disorder, single episode, unspecified Plan: Depression is long standing but, he never sought treatment. Started on Remeron 15 mg at admission to rehab and increased to 22.5 mg on 01/13/25. Would benefit from psychotherapy. He is eating better and not refusing meals any longer. (8) Urinary incontinence: Status: Chronic Code(s): R32 - Unspecified urinary incontinence Qualifiers: Urinary Incontinence type: urinary incontinence without sensory awareness Qualified Code(s): N39.42- Incontinence without sensory awareness Plan: Incontinent of urine most of the time. Will not even alert nursing when he has been incontinent. The week prior to DC he had been continent a few times but, has been regressing the last 5 -7 days prior to discharge. He denies dysuria and has had no fevers and no leukocytosis. We check a UA prior toDC and it wasnegative for infection. UA showed no evidence of UTI. (9) Fecal incontinence: Status: Chronic Code(s): R15.9 - Full incontinence of feces Qualifiers: Fecal incontinence type: unspecified Qualified Code(s): R15.9 - Full incontinence of feces (10) Essential (primary) hypertension: Status: Chronic Code(s): I10 - Essential (primary) hypertension Plan: Blood pressure was low early in the week of discharge so we have been decreasing the antihypertensives. He is only on Metoprolol at the time of discharged from rehab and this is needed to control theHR with AF. With discontinuation of Lisinopril the BP improved and is within goal at the time of [facility] rehab. (11) Paroxysmal atrial fibrillation: Status: Chronic Code(s): I48.0 - Paroxysmal atrial fibrillation Plan: Xarelto has been on hold since the [facility]. He has follow up with Dr. Padilla scheduled 01/28/[address] Padilla to restart chronic anticoagulation. The SDH has shrunk from 5x2.1 cm to 5X1.6 cm at [place] from rehab. No active bleeding on CTB done 01/15/25. (12) Chronic anticoagulation: Status: Chronic Code(s): Z79.01 - [facility] (current) use of anticoagulants Plan: Will defer to neurosurgery to determine when he can restart anticoagulation. Heis going to follow up with Dr. Padilla. (13) Peripheral neuropathy: Status: Chronic Code(s): G62.9 - Polyneuropathy, unspecified Qualifiers: Peripheral neuropathy type: polyneuropathy, other Qualified Code(s): G62.89 - Other specified polyneuropathies Plan: Not c/o pain in the legs at the time of DC. He started to c/o pain in the L dulce the left leg while on rehab and this was attributed to central neuropathic pain related to the intracerebral bleed. He was started on Gabapentin 100 mg BID and this has been effective in relieving that pain. (14) PAD (peripheral artery disease): Status: Chronic Code(s): I73.9 - Peripheral vascular disease, unspecified Plan: F/U with vascular as needed. (15) Heme positive stool: Status: Acute Code(s): R19.5 - Other fecal abnormalities Plan: HGB is WNL at 13.2. He has no nausea or abd pain. He was started on a PPI because he was having some N/V early in the admission and he no longer has N/V/heartburn or epigastric pain. (16) Hyponatremia: Status: Acute Code(s): E87.1 - Hypo-osmolality and hyponatremia Plan: W/U consistent with SIADH. Placed on salt tabs and fluid restriction of 1400 cc's daily. Never evencomes close to taking 1400 cc's in 24 H. We have been encouraging him to increase his fluid intake to no avail. Sodium on 01/15/25 [id number]. 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 twice daily. (18) Torticollis, acquired: Status: Resolved Code(s): M43.6 - Torticollis Plan: Due to hypertonicity of muscles in the left neck and upper thoracic area relatedto SDH/ischemic CVA's. He had a Botox injection from Dr. Aleman and this has improved significantly. He no longer has torticollis or lateroCollis. Has not had a Muscle relaxer since 01/04/25. (19) Laterocollis: Status: Resolved Code(s): G24.3 - Spasmodic torticollis (20) Acute cystitis with hematuria: Status: Resolved Code(s): N30.01 - Acute cystitis with hematuria Plan: Present at admission to rehab. Due to Enterococcus faecalis. It was sensitive to Macrobid and he was taking Macrobid but when he developed a left basilar pneumonia he was transitioned to Levaquin. Hedeveloped acute delirium after a few days on intravenous Levaquin and he was transition from Levaquin to Augmentin to finish appropriate course of treatment for left lower lobe pneumonia and cystitis. (21) Hospital-acquired pneumonia: Status: Acute Code(s): J18.9 - Pneumonia, unspecified organism; Y95 - Nosocomial condition Plan: Resolved with Levaquin and then transition to Augmentin due to acute delirium on Levaquin. (22) Sleep apnea: Status: Chronic Code(s): G47.30 - Sleep apnea, unspecified Qualifiers: Sleep apnea type: obstructive Qualified Code(s): G47.33 - Obstructive sleep apnea (adult) (pediatric) Plan: This was diagnosed many years ago and pt has not been compliant with CPAP and does not wear oxygen when sleeping. He had an overnight trending pulse ox whileon rehab and he had only 1 and 1/2 minuteswhen O2 sat was 89 or less. There were no desaturation events > 60 sec. Does not need oxygen supplementation at night. (23) Acute delirium: Status: Resolved Code(s): R41.0 - Disorientation, unspecified Plan: due to Levaquin. Resolved with discontinuation of Levaquin. (24) Weight loss, non-intentional: Status: Acute Code(s): R63.4 - Abnormal weight loss Plan: Lost 11 lbs on rehab despite being prescribed supplements by the automotive parts interpreter. Would not eat or drink.......said he had no appetite. Eating better at DC and not refusing meals any longer. (25) Decubitus ulcer: Status: Resolved Code(s): L89.90 - Pressure ulcer of unspecified site, unspecified stage Qualifiers: Laterality: left Pressure injury location: heel Pressure injury stage:stage 1 Qualified Code(s): L89.621 - Pressure ulcer of left heel, stage 1 Plan: Stage 1 left heel. Placed in heel protector and it is no longer boggy to palpation at DC from rehab. (26) Subluxation of left shoulder joint: Status: Acute Code(s): S43.002A - Unspecified subluxation of left shoulder joint, initial encounter Qualifiers: Encounter type: initial encounter Qualified Code(s): S43.002A - Unspecified subluxation of left shoulder joint, initial encounter Plan: Due to CVA/Left hemiparesis. Placed in a rotator cuff sling prior to DC from rehab. (27) Ascending aorta dilation: Status: Chronic Code(s): I77.810 - Thoracic aortic ectasia Plan: found incidentally on a CTA of the H&N. Can be followed as an OP. (28) Pulmonary nodules: Status: Chronic Code(s): R91.8 - Other nonspecific abnormal finding of lung field Plan: Multiple nodules. The largest measures 8 mm. Defer follow up OP. Plan 1. DC to [facility] on 01/17/25. 2. Will need follow up with neurology, cardiology and neurosurgery. At the time of DC from rehab heis still requiring a Jaleel to move him from the bed to a WC. Can not maintain an upright posture while sitting in the WC and would notbe safe. May need to defer follow up until he is able to maintainposture whilesitting in the WC. 3. Family and patient are interested in a palliative care consult. Medications at Discharge Home Medications metoprolol succinate 50 mg tablet,extended release 24 hr 50 mg PO DAILY heart rate 12/30/24 Petrolatum 33% [Eucerin Eqivalent] 1 applic topical QHS #1 oz 01/16/25 acetaminophen 500 mg tablet 1,000 mg (2 x 500 mg) PO Q8 PRN pain/fever #1 TAB 01/16/25 bisacodyl 10 mg rectal suppository 10 mg NE X1 PRN Constipation #0 ea 01/16/25 gabapentin 100 mg capsule 100 mg PO 0600,1800 #0 caps 01/16/25 magnesium chloride 64 mg (magnesium chloride) tablet,delayed release 128 mg (2 x64 mg) PO DAILY #0 tabs 01/16/25 magnesium hydroxide 400 mg/5 mL oral suspension 30 ml PO X1 PRN Constipation #0 mL 01/16/25 menthol 0.44 %-zinc oxide 20.6 % topical ointment (Calmoseptine) 1 applic topical BID #0 grams 01/16/25 metoprolol succinate 25 mg tablet,extended release 24 hr 25 mg PO QHS #0 tabs 01/16/25 mirtazapine 15 mg tablet 22.5 mg (1.5 x 15 mg) PO 2000 #1 TAB 01/16/25 oxycodone 5 mg tablet 5 mg PO Q6H PRN pain 4-10 1 week #10 tabs 01/16/25 pantoprazole 40 mg tablet,delayed release 40 mg PO DAILY #0 tabs 01/16/25 saliva substitute combo no.9 (Biotene Dry Mouth Oral Rinse mouthwash) 15 ml mucous membrane 4X/DAY #0 mL 01/16/25 sennosides 8.6 mg-docusate sodium 50 mg tablet (Stimulant Laxative Plus) 2 tab PO BID #0 tabs 01/16/25 sodium chloride 1,000 mg soluble tablet 1,000 mg PO BID #0 tabs 01/16/25 rivaroxaban 20 mg tablet 20 mg PO QPM #30 tabs 01/17/25 Hospital Course Operations None Procedures None and Electroencephalogram (Had EEG's at [facility] and they were negative for seizures. ) Summary of Care Provided Minutes Spent on Discharge: 48 Hospital Course: SUNG YAÑEZ, is a 84 YO M with a PMH of AF, chronic anticoagulation with Xarelto, BPH, degenerative disc disease, diverticulosis, tobacco dependencein remission, CHRISTOPHER (diagnosed many years ago and non-compliant with CPAP), hiatalhernia, hypertension, and history of melanoma who presented to the ED at [facility] on 12/23/2024 complaining of tingling and weakness on his left side. He related that he had a fall (he struck his head and had a scalp abrasion) on 12/20/2024 and was doing fine until he woke up at 2 AM on the with tingling and numbness on the L side.......it increased in the time it took him to get to the ED by squad. Noncontrast brain CT showed a subdural hematoma on the right measuring 0.5 cm in depth in the temporal region. There was hemorrhage extending along the falx and tentorium on the right with a masslike component posteriorly measuring 5 cm x 2.1 cm. There was a midline shift at the anterior aspect of 0.4 cm towards the left. CTA of the head and neck showed an asc endingaorta which was dilated to 4.1 cm. There was no significant stenosis or occlusion identified in the carotid or vertebral system. NIHSS was 2 for weakness in the left upper extremity and left lower extremity. He was given Kcentra in the emergency department. He also received labetalol for hypertension and Keppra for seizure prophylaxis. He was transferred to [facility] for intracerebral bleed. Neurosurgery was consulted and family declined any surgical intervention. A 20 minute EEG was negative for seizure activity. Continuous EEG also showed no seizure activity. It didshow right cerebral hemisphere dysfunction. CT head was repeated at [facility] and it showed a sl ight increase in size of extensive acute right parafalcine subdural hemorrhage measuring up to 19 mm in thickness. There was a slight increase in the subdural hemorrhage along the right cerebral convexity measuring6 mm, up from 4 mm at [facility]. There was mass effect on the right cerebral convexity with approximately 4 mm of midline shift to the left. This was unchanged. CT brain was repeated on 12/24/2024 and showed a slight decreased size of the parasagittal component of the right subdural hemorrhage with minimal midline shift. There was a stable appearing small left cerebral subdural hemorrhage and right cerebellar subdural hemorrhage. MRI of the brain on December 26 showed nodefinite acute CVA. There was increased FLAIR signal in themedial right frontal and parietal cortexadjacent to the parafalcine subdural and subarachnoid hemorrhage suspicious for cortical edema. There was a stable appearance of multiple extra-axial hemorrhages along the medial right greater than left falx, overlying the right convexity as well as in the posterior fossa and along the tentorium. He did not require any surgical intervention while at [facility]. He was transferred to the acute inpt rehab unit at [facility] on 12/30/24 for 3 hours of therapy daily to restore function/independence at or near hislevel prior to the fall on 12/20/24. Ton had a UTI at admission to rehab. He was empirically started on Macrobid. The urine culture grewEnterococcus faecalis and it was sensitive to Macrobid. He developed a cough and CXR showed a Left basilar PNA. He was transition from Macrobid to Levaquin. After a few doses of the Levaquin he had acute delirium and Levaquin was discontinued and he was started on Augmentin which he tolerated well.The delirium resolved with discontinuation of Levaquin. He developed pain in the Left arm and leg and was started on gabapentin 100 mg twice daily for suspected central neuropathic pain. This was effective in relieving that pain. He has chronic pain in his feet secondary to peripheral neuropathy and he is no longer complaining of this since the gabapentin was started. He developed torticollis andlaterocollis and rather than starting scheduled muscle relaxers which could potentially increase somnolence a consult was placed for pain management. Dr. Aleman did Botox injections and this was veryeffective. He is no longer c/o neck pain. The torticollis has resolved. He does still have some L sh oulder pain and I think this is due to subluxation of the left shoulder due to profound weakness ofthe left shoulder girdle. On 01/16/2025 a rotator cuff sling was ordered to prevent subluxation of the joint. 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 He was started on salt tablets 1 g p.o. twice daily and fluid restriction to 1200 cc/day. The sodium came up to 139. Fluid restrictionwas increased to 1400 daily but, most days his intake is less than 1,000 despiteencouragement to drink the 1400 cc/daily. Sodium on 01/15/25 was 134. BUN is stable at 28 and his creatinineis 0.73. The BUN/creatinine ratio is 38.2. He denies lightheadedness. Fluid intake on 01/15/2025 [id number] cc. At presentation to acute rehab Ton was quite sleepy and difficult to arouse. He slept most of the day and through the night. He would not make eye contact with me. His appetite was very poor and he refused many meals. He wasseen by the automotive parts interpreter and supplements were ordered for him but, he would not eat. He admitted to being depressed and stated this had been going on for some time. He had never been on an antidepressant and had never had psychotherapy/counselling. He was started on Remeron 15 mg QHS. This was later increased to 22.5 mg Q HS. Prior to DC he is eating better and has not recentlybeen refusing meals. He has been more talkative. He tells me now that he wantsto get better and wants to know when he will be able to walk. Getting him to participate with the therapists has been a constant challenge. We are still having to use the Jaleel lift to get him out of bed and into a WC. When he is inthe WC he is not able to sit erect and slumps forward and to the left. He has never beenable to stand. He is not able to sit on a shower chair due to lack of truncal control. He has been incontinent of urine and stool and was not ableto notify the nurses when he had been incontinent. This improved to the point where he was sometimes able to use the urinal and sometimes able to tell nursinghe needed to have a BM. He was able to partially dress his upper body but starting on 01/15/25 he was dependent for this again. He is able to feed himselfbut, he prefers his feed him. On 01/16 he did tell the OT in the AM when doing his personal care that he had 2 to have a BM X2 times. At times his voiceprojects well and he is not slurring and at other times he is very soft spoken and difficult to understand. At times he is very alert and at others he will close his eyes and not make eye contact with me. He sleeps a good portion of the day. Does better in the evenings when he has visitors. The last week of admission he c/o an intermittent GARCIA. We ordered a NC CTB and it showed a decrease in the size of the hyperdensity centered along the right falx and tentorium. At presentation [facility] emergency room initially the subdural hematoma measured 5 cm x 2.1 cm. It now measures 5 cm x 1.6 cm. There was no active bleeding noted. There is mild associated mass effect upon the posterior limb of the right lateral ventricle which was unchanged. The CT now showed chronic moderate-sized ischemic infarcts within the bilateral parietal?occipitalwatershed areas, left greater than right. There was mild scattered supratentorial white matter hypodensities and a lacunar type infarct within theright basal ganglia. It is unknown when the ischemic strokes occurred. On the MRI done on December 26 [facility] There was no definite acuteinfarct however there was some restricteddiffusion along the medial right frontal and parietal lobes interdigitating along the sulci. The ischemic strokes could be related to the rapid reversal of Xarelto with KCENTRA or to emboli from AF. He has been off AC since the ICH was identified. Ton was on Lisinopril 20 mg daily and metoprolol XL 50 mg daily at admission to rehab. The systolicand diastolic were elevated above goal and heart rate was uncontrolled. A second dose of metoprololXL 25 mg was added to the drug regimen at that time. BP and HR were well controlled however he has had poor oral intake and the last week he was on rehab the BP was low. Lisinopril was discontinued. A t the time I am dictating this discharge summary his blood pressure is 126/79 with a heart rate of 92. He is on metoprolol XL 50mg every morning and 25 mg nightly. He denies lightheadedness. At the time of discharge from rehab he is supervision/set up for eating. He requires minimal assistance withgrooming. He is max assist for bathing and total assist for upper body dressing and lower body dressing. He also requires total assistance for toileting and toilet transfer. He is not able to shower because he has no truncal control and is not safe to sit on a shower chair. He is able to sit on theedge of the therapy mat at mod/max assist x 1-2 for up to 15 minutes workingon reaching and gaining postural awareness as well as weightbearing in the left upper extremity/elbow. He requires a Jaleel lift for all transfers. He is nonambulatory and cannot stand. Ton was transferred to [facility] on 01/17/25 for additional therapy. The depression seems to be finally improving and he is participating more with the therapists when they are working with him. He was more alert during the day on 01/16 and more talkative. He has a follow up appt with Dr. Padilla from neurosurgery on 01/28/[address] scan of the brain was ordered by Dr. Padilla for that day. I spoke with Dr. Padilla on 01/17/25 and discussed the results of the CT head done on 01/15. He is OKwith restarting Anticoagulation. Xarelto 20 mg daily ordered. No loading doses due to recent traumatic intracerebral hemorrhage. We will send the CT images to [facility] so he can view the CTB. Ton has an appt withDr. Padilla on 01/28/[address] and [address] a [address] head that morning. He will need to be transported by cot because he is not able at this time to sit upright in a WC and maintain his posture. Will get a CBC, CMP and lipid panel after DC to [facility]. The ischemic CVA's are most likely related toAF. He had an intracerebral bleed and had heme + stool early in admission to rehab. No ASA indicated for now. HGB has been stable. Would consider a statin if the LDL is not 70 or less. Physical Exam Const General Appearance: cooperative, ill appearing and other appears stated age HEENT HEENT Narrative: Very dry mucous membranes. No evidence of thrush. Kiana on the hard palate. Eyes PERRL, EOMs intact bilaterally, conjunctivae normal and no scleral icterus Eyes Narrative: No discharge from the eyes. No visual field cuts. Denies any change in his vision. General Eye: normal light reflex Neck supple, No nodes and no carotid bruits Neck Narrative: Left trapezius spasms have resolved. Torticollis and laterocollis resolved withBotox injections by pain management. Head is now on the midline and he denies neck pain. General: trachea midline Chest Chest: symmetrical chest wall rise Resp normal respiratory effort Resp Narrative: Good effort today. No coughing with deep breath. Not tachypneic. No conversational dyspnea. Lungs are CTA. Effort and Inspection: Negative for labored, grunting or actively coughing Cardio no murmurs, no rub and no gallops Cardio Narrative: Irregular irregular rhythm with controlled ventricular response. Known history of atrial fibrillation. Denies chest pain and also denies palpitations and lightheadedness. GI normal to inspection, nondistended, normoactive bowel sounds, soft to palpation and non-tender GI Narrative: No guarding with palpation. Not constipated. Still incontinent of stool. no CVA tenderness Narrative: Denies dysuria. Continues to have urinary incontinence. Back/Spine no CVA tenderness Back/Spine Narrative: Denies pain in his legs. pain in the feet due to peripheral neuropathy has resolved with addition of Gabapentin to the drug regimen. Extremity no pedal edema Extremity Narrative: Superficial varicosities in both lower extremities. Some pitting edema of the left ankle. No calf pain. Denies pain in his feet. The left heel is no longerboggy and he had no pain with palpation today. There is no increased redness ofthe heel. Heel protectors in place on both feet. No openings in the skin. Very diminished pedal pulses in the left foot but, the foot is warm. He had PVR's in 2022 and the MARGE on the R was 1.1 and on the left it was decreased at 0.74 consistent with moderate arterial insufficiency. He started to have Left shoulder pain and this was felt to be due to subluxation of the L shoulder due to severe weakness of the L shoulder girdle. He is now in a rotator cuff sling. Skin General Skin Exam: Negative for jaundice Rashes: no rashes Hair: general thinning Neuro oriented x3 and CN's II-XII intact bilaterally Neuro Narrative: Tongue protrudes on the midline. Intact sensation in the face. Has some Left shoulder shrug now andhas some tone in the L biceps. He is able to lift the L forearm off the bed at the elbow but, if I lift and extend the left arm it fallsimmediately to the bed. Fair ceo and co founder strength in the L hand now. He can internally and externally rotate the Left forearm from the elbow distally. Has some tone in the left triceps as well now. Has decreased sensation in the LE's distally in a stocking distribution and he has known hx of peripheral neuropathy. He has NO movement in the left LE. He is unable to lift the RLE off the bed but, he can move it side to side and he has some weak dorsiflexion and plantarflexion of the R foot. No sensory loss proximal to the knees. No extinction. Can not test the side for ataxia due to severe weakness. Able to read all the sentences on the NIHSS and identify all the pictures. No visual side neglect. He does not speak up and slurs some but, when you ask him to speak up and enunciate this improves. Able to follow commands. Unable to maintain posture when his head is elevated due to poor truncal support. Leans heavily to the left. Meningeal Signs: no meningeal signs and nuccal rigidity Psych Psych Narrative: He ate 75-100% of his last 4 meals. Sleeping well at night. More alert during the day and more interactive. Not outwardly anxious. Affect is still flat. Currently on Remeron 22.5 mg (Remeron was started on 12/31/24. No agitation and no sundowning. Appearance: grossly normal and appropriate Activity / Motor Behavior: psychomotor slowing and other Keeps his eyes closed most of the time I am talking with him unless I ask him to look at me. Speech: slow and soft Mood & Affect: depressed Weight / BMI Weight Weight: 191 lb 2.252 oz Body Mass Index (BMI) 23.8 ABG / Lab / Microbiology Data 01/15/25 05:29 01/15/25 05:29 Microbiology: Microbiology 12/31/24 15:00 Urine Catheter - Catheter Urine Culture - Final Enterococcus faecalis 01/01/25 06:58 Stool Stool Occult Blood (AMOS) - Final Occult Blood Positive Radiography Diagnostic Testing: Radiology Impression Brain CT 01/15/25 12:32 IMPRESSION: 1. No new or enlarging acute intracranial finding. 2. Interval improvement in the right falx/tentorial subdural hematoma as described. 3. Additional chronic findings as described. Reading Location: [id number] Indicators for Scoring Admitted with or Primary Diagnosis of CVA/Stroke: No (multiple SDH's and SAH with foacl neurologic deficits. ) Hx of CVA/Stroke: No Modified Adele Score MRS Score at time of Evaluation: 5-Severe disability NIHSS NIHSS 1a. Level of Consciousness: 0 - Alert; keenly responsive 1b. LOC Questions: 0 - Answers BOTH questions correctly 1c. LOC Commands: 0 - Performs BOTH tasks correctly 2. Best Gaze: 0 - Normal 3. Visual: 0 - No visual loss 4. Facial Palsy: 0 - Normal symmetrical movements 5a. Left Arm: 2 - Some effort against gravity; (He can lift the forearm off the bed at the elbow. If I lift his arm off the bed it falls immediately to the bed. ) 5b. Right Arm: 0 - No drift; arm holds 90 (or 45) degrees for full 10 seconds 6a. Left Le - No movement 6b. Right Le - No effort against gravity; leg falls to bed immediately (He has some side to side movement on the bed. He has some weak plantar and dorsiflexion of the R foot. ) 7. Limb Ataxia: 0 - Absent (unable to test the left side due to weakness. No ataxia on the R side. ) 8. Sensory: 1 - [id number] sensory loss; (He has decreased sensation in both LE's distal to the knee which is chronic and he has been diagnosed with peripheral neuropathy. ) 9. Best Language: 0 - No aphasia; normal 10. Dysarthria: 1 = [id number] dysarthria; 11. Extinction and Inattention: 0 - No abnormality Total: 11 D/C Instructions Diet Diet Order/Speech Therapy: INPATIENT Hospital Diet / Speech Therapy Order(s) 12/30/24 18:38 Diet: Cardiac - Heart Healthy Type of Dietary Supplement:: Ensure Plus High Protein Fluid restriction:: 1400 mL Diet Comments: 240ml nuha EPHP with lunch// Chocolate ensure milkshake with dinner Discharge order: Continue INPATIENT Hospital Diet / Speech Therapy Orders: Yes DC O2, CPAP, BIPAP Needs RN Home O2 qualification: 2 No Data to Display PSN CPAP & BiPAP: BiPAP & CPAP Settings per PSN Fraction of Inspired Oxygen ( 94 01/05/25 22:00 FIO2) Home O2 Discharge instructions: No Please Follow Up With: Dr. Padilla Meaningful Use Info Meaningful Use Meaningful Use Diagnoses (Choose all that apply): Hemorrhagic CVA (Traumatic ICHin pt on Xarelto was admitting diagnosis to rehab. Has had ischemic infarcts.....unknown when this happened. Primary dxfor rehab is intracerebral hemorrhage. ) and Ischemic CVA CVA Therapy Assessed for PT,OT and/or ST?: Yes Ischemic Stroke Antithrombotic order at d/c?: No Reason antithrombotic not ordered: Medical Contraindication (CVA more likely than not due to AF. Had recent traumatic ICH and he has had heme + stool. He is going to be discharged on Xarelto. ) Dx of Atrial fib/flutter?: Yes Anticoagulant at discharge?: Yes Statin Dosing Therapy Reference: STATIN DOSE THERAPY REFERENCE: * Patients > 75 years receive moderate or high dose statin therapy. * Patients 75 years or YOUNGER should receive HIGH intensity statin dose unless contraindicated. You will be required to document reason for non-treatment if statin daily dose does not meet guidelines. HIGH DOSE STATIN THERAPY DAILY Atorvastatin > than or = to 40 mg Rosuvastatin > than or = to 20 mg Amlodipine + Atorvastatin > than or = to 2.5/40 mg Ezetimibe + Simvastatin 10/80 mg Simvastatin 80mg Statins at discharge?: No Reason Statin not ordered: Treatment not Indicated (No recent lipid panel. Orders placed for him tohave a Lipid panel and a liver panel at [facility]. If the LDL is > 70 would add a statin to the current drug regimen. ) Primary Dx Acute Ischemic CVA?: No IV thrombolytic ordered during stay?: No Discharge Plan Admission Admit Date/Time: 12/30/24 18:14 Primary Reason for Your Visit: Debility due to intracerebral bleed. Attending Provider: Savanna Kelly Primary Care Provider: Briseida Vergara Consulting Providers: Nohelia Aleman Instructions Additional Instructions / Restrictions: 1. He will need to follow up with Mateo Crane NP from [facility] at some point. currently not able to sit in a WC and maintain and upright posture. 2. He has an appt with Dr. Padilla (neurosurgery) scheduled. Will defer restarting Xarelto to Dr. Padilla. 3. He should also follow up with neurology as an OP. 4. He has subluxation/pain of the Left shoulder and was placed in a rotator cuff sling on 01/16/25 to help with this. Subluxation is due to Severe weakness of the left arm........can only really flex his fingers weakly at the time of [facility] rehab. 5. He is incontinent of stool and urine. 6. He had a stage I decub of the left heel which has resolved. 7. He is severely depressed. Now up to 22.5 mg of Remeron at HS. Appetite hasimproved and he rarelyrefuses a meal now. Has lost 11 lbs form 12/30/24 to 01/14/25. 8. CT scan on 01/15/25 shows the subdural hematoma is decreasing in size and there are no new or enlarging acute intracranial findings. Unfortunately the CTscan shows chronic moderate-sized ischemic infarct within the bilateral parietal?occipital watershed areas, left greater than right. There are mild scattered supratentorial white matter hypodensities and a lacunar type infarct within the right basal ganglia. MRI on 12/26/24 at previous hospital did not clearly show any ischemic infarcts. These may have occurred following KCENTRA and withholding anticoagulation due to the bleeding. This helps to explain why he really has not made much progress on rehab. 9. BP has recently been on the low side and Lisinopril was discontinued on . BP at [place] is better and within goal of < 130/80. 10. He had acute cystitis and LLL PNA while on rehab. He had Delirium with Levaquin and it resolvedwith discontinuation of the drug. 11. Spoke with Dr. Padilla on 01/17/25 and we are going to restart anticoagulation with Xarelto 20 mg daily.......no loading doses due to hx of ICH. He has an appt with Dr. Padilla on 01/28/25 and will have a repeat CT brain that morning. He will need to be transported on a cot because he is unable to maintina an upright posture sitting in a WC.....he slumps forward and to the left. Discharge Orders/Prescriptions Prescriptions: New bisacodyl 10 mg Suppository 10 mg NE X1 PRN (Reason: Constipation) Qty: 0 0RF magnesium hydroxide 400 mg/5 mL Suspension 30 ml PO X1 PRN (Reason: Constipation) Qty: 0 0RF mirtazapine 15 mg Tablet 22.5 mg PO 2000 Qty: 1 0RF gabapentin 100 mg Capsule 100 mg PO 0600,1800 Qty: 0 0RF metoprolol succinate 25 mg Tablet Extended Release 24 Hr 25 mg PO QHS Qty: 0 0RF magnesium chloride 64 mg Tablet,Delayed Release (Dr/Ec) 128 mg PO DAILY Qty: 0 0RF menthol-zinc oxide [Calmoseptine] 0.44-20.6 % Ointment 1 applic topical BID Qty: 0 0RF Protocol: *Topical Application Instructions APPLICATION INSTRUCTIONS: Coccyx sennosides-docusate sodium [Stimulant Laxative Plus] 8.6-50 mg Tablet 2 tab PO BID Qty: 0 0RF pantoprazole 40 mg Tablet,Delayed Release (Dr/Ec) 40 mg PO DAILY Qty: 0 0RF Biotene Dry Mouth Oral Rinse Mouthwash 15 ml mucous membrane 4X/DAY Qty: 0 0RF Petrolatum 33% [Eucerin Eqivalent] 1 applic topical QHS Qty: 1 0RF Rx Instructions: apply to the distal LE's from the knee to the toes. sodium chloride 1,000 mg Tablet,Soluble 1,000 mg PO BID Qty: 0 0RF rivaroxaban 20 mg tablet 20 mg PO QPM Qty: 30 0RF Rx Instructions: must administer with evening meal Continued metoprolol succinate 50 mg tablet extended release 24 hr 50 mg PO DAILY Changed acetaminophen 500 mg tablet 1,000 mg PO Q8 PRN (Reason: pain/fever) Qty: 1 0RF oxycodone 5 mg tablet 5 mg PO Q6H PRN (Reason: pain 4-10) 7 Days Qty: 10 0RF Discontinued lisinopril 20 mg tablet 20 mg PO DAILY Qty: 90 3RF cyclobenzaprine 5 mg tablet 5 mg PO TID PRN (Reason: muscle spasm) Mag Glycinate 100 mg tablet 200 mg PO DAILY Referrals / Follow Up: Hi Mckeon [Other] - 01/28/25 11:[address] Scan [Other] - 01/28/25 10:45 am Mateo Crane NP, [facility]AD[facility] [Med Staff - Adv Practice Prof] - 02/11/25 10:00 am Disposition Disposition (needs filled in before D/C Order can be placed): Longterm Facility Charges/Coding Visit Charges Inpatient E&M: 81209 Disch Hosp >30min 01/17/25 1117 Cosigner Signature (if applicable): CC: Dr. Briseida Vergara MD; Dr. Savanna Kelly DO~ Signed [facility]07-25-2025 Discharge summary [facility] Medical Records Department [address] [place] [address] Transfer to Extended Care MR#: [id number] Acct: [id number] Name: SUNG YAÑEZ Rep #:[id number] : [id number] 84 From: Savanna Kelly DO PCP: Dr. Briseida Vergara MD Status:ADM IN Certification of patient admission REQUIRED AT TIME OF ADMISSION. I CERTIFY THAT POST-HOSPITAL ECF SERVICES ARE REQUIRED TO BE GIVEN ON AN IN-PATIENT BASIS BECAUSE OF THE ABOVE NAMED PATIENT'S NEED FOR ASSISTED CARE ON A CONTINUING BASIS FOR THE CONDITION(S) FOR WHICH HE/SHE WAS RECEIVING IN-PATIENT HOSPITAL SERVICES PRIOR TO HIS/HER TRANSFER TO THE [facility]. 01/16/25 1223 Diet Diet Order/Speech Therapy: INPATIENT Hospital Diet / Speech Therapy Order(s) 12/30/24 18:38 Diet: Cardiac - Heart Healthy Type of Dietary Supplement:: Ensure Plus High Protein Fluid restriction:: 1400 mL Diet Comments: 240ml nuha EPHP with lunch// Chocolate ensure milkshake with dinner Routine Orders/Code Status Enema Type: Fleetz Enema Frequency: Daily PRN Suppository Type: Dulcolax 10mg Suppository Frequency: Daily PRN Code Status: Full Code DC O2, CPAP, BIPAP needs Home O2 Discharge instructions: No Wound(s) LL Back: Wound Type: Skin Tear Suggestions for Active Care Change Position every (hours): 2 Therapies Weight Bearing: Weight bearing as tolerated (no weight bearing restrictions. Heis still requiring ahoyer lift to get him from the bed to the at the time ofDC from rehab. ) Extremity Affected:: Bilateral Lower and Left Upper Physical Therapy: Eval and Treat Occupational Therapy: Eval and Treat Speech Therapy: Eval and Treat Problem/Diagnosis (1) Debility: Status: Acute Code(s): R53.81 - Other malaise (2) Intracerebral bleed due to trauma: Status: Acute Code(s): S06.36AA - Traumatic hemorrhage of cerebrum, unspecified, with loss of consciousness status unknown, initial encounter Comment: Due to a fall on 12/20/2024 causing him to strike his head in pt on chronic anticoagulation with Xarelto. SDH's, SAH. No surgical intervention was done. (3) Ischemic cerebrovascular accident (CVA): Status: Acute Code(s): I63.9 - Cerebral infarction, unspecified Comment: F/U NC CTB on 01/15/25 showed chronic moderate-sized ischemic infarcts within theparietal-occipital watershed areas and a lacunar infarct in the R basal ganglia. (4) Mild cognitive impairment: Status: Acute Code(s): G31.84 - Mild cognitive impairment of uncertain or unknown etiology (5) Acute left-sided weakness: Status: Acute Code(s): R53.1 - Weakness (6) Paresthesias: Status: Acute Code(s): R20.2 - Paresthesia of skin Comment: chronic paresthesias in the BL LE's. New numbness in the Left face and the LUE. (7) Depression: Status: Chronic Code(s): F32.A - Depression, unspecified Plan: Depression is long standing but, he never sought treatment. Started on Remeron 15 mg at admission to rehab and increased to 22.5 mg on 01/13/25. Would benefit from psychotherapy. (8) Urinary incontinence: Status: Chronic Code(s): R32 - Unspecified urinary incontinence Plan: Incontinent of urine most of the time. Will not even alert nursing when he has been incontinent. The week prior to DC he had been continent a few times but, has been regressing the last 5 -7 days prior to discharge. He denies dysuria and has had no fevers and no leukocytosis. We check a UA prior toDC and it wasnegative for infection. (9) Fecal incontinence: Status: Chronic Code(s): R15.9 - Full incontinence of feces (10) Essential (primary) hypertension: Status: Chronic Code(s): I10 - Essential (primary) hypertension Plan: Blood pressure was low early in the week of discharge so we have been decreasing the antihypertensives. He is only on Metoprolol at the time of discharged from rehab and this is needed to control theHR with AF. With discontinuation of Lisinopril the BP improved and is within goal at the time of DCfrom rehab. (11) Paroxysmal atrial fibrillation: Status: Chronic Code(s): I48.0 - Paroxysmal atrial fibrillation Plan: Xarelto has been on hold since the [facility]. He has follow up with Dr. Padilla scheduled and will defer to Dr. Padilla to restart chronic anticoagulation. Comment: diagnosed 2011 (12) Chronic anticoagulation: Status: Chronic Code(s): Z79.01 - intermediate frame tender (current) use of anticoagulants Plan: Will defer to neurosurgery to determine when he can restart anticoagulation. Heis going to follow up with Dr. Padilla. Comment: Xarelto....currently on hold due to intracerebral bleeding. (13) Peripheral neuropathy: Status: Chronic Code(s): G62.9 - Polyneuropathy, unspecified Plan: Not c/o pain in the legs at the time of DC. He started to c/o pain in the L dulce the left leg while on rehab and this was attributed to central neuropathic pain related to the intracerebral bleed. He was started on Gabapentin 100 mg BID and this has been effective in relieving that pain. Comment: Likely due to LS DJD/DDD/chronic back pain. (14) PAD (peripheral artery disease): Status: Chronic Code(s): I73.9 - Peripheral vascular disease, unspecified Comment: Arterial 11/03/22: Right MARGE 1.1, normal. Doppler/PVR waveforms of the right ankle normal at rest. TBI diminished, pedal/digit disease Left MARGE 0.74, moderate arterial insufficiency. Doppler/PVR waveforms of the left ankle moderately diminished at rest. (15) Heme positive stool: Status: Acute Code(s): R19.5 - Other fecal abnormalities Plan: HGB is WNL. He has no nausea or abd pain. He was started on a PPI because he was having some N/V early in the admission and he no longer has N/V/heartburn orepigastric pain. (16) Hyponatremia: Status: Acute Code(s): E87.1 - Hypo-osmolality and hyponatremia Plan: W/U consistent with SIADH. Placed on salt tabs and fluid restriction of 1400 cc's daily. Never evencomes close to taking 1400 cc's in 24 H. We have been encouraging him to increase his fluid intake to no avail. Sodium on 01/15/25 [id number]. 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 twice daily. (18) Torticollis, acquired: Status: Resolved Code(s): M43.6 - Torticollis Plan: Due to hypertonicity of muscles in the left neck and upper thoracic area. He had a Botox injection from Dr. Aleman and this is improved significantly. He nolonger has torticollis or lateral James. (19) Laterocollis: Status: Resolved Code(s): G24.3 - Spasmodic torticollis (20) Acute cystitis with hematuria: Status: Resolved Code(s): N30.01 - Acute cystitis with hematuria Plan: Present at admission to rehab. Due to Enterococcus faecalis. It was sensitive to Macrobid and he was taking Macrobid but when he developed a left basilar pneumonia he was transitioned to Levaquin. Hedeveloped acute delirium after a few days on intravenous Levaquin and he was transition from Levaquin to Augmentin to finish appropriate course of treatment for left lower lobe pneumonia and cystitis. (21) Hospital-acquired pneumonia: Status: Acute Code(s): J18.9 - Pneumonia, unspecified organism; Y95 - Nosocomial condition Plan: Resolved with Levaquin eith transition to Augmentin due to acute delirium on Levaquin. (22) Sleep apnea: Status: Chronic Code(s): G47.30 - Sleep apnea, unspecified Plan: This was diagnosed many years ago and pt has not been compliant with CPAP and does not wear oxygen when sleeping. He had a overnight trending pulse ox while on rehab and he had only 1 and 1/2 minuteswhen O2 sat was 89 or less. There were no desaturation events > 60 sec. Does not need oxygen supplementation at night. Comment: Does not wear CPAP and does not wear oxygen anytime he is sleeping. (23) Acute delirium: Status: Resolved Code(s): R41.0 - Disorientation, unspecified Plan: due to Levaquin. Resolved with discontinuation of Levaquin. (24) Weight loss, non-intentional: Status: Acute Code(s): R63.4 - Abnormal weight loss Comment: weight decreased 11 lbs while on rehab due to poor appetite and intake. supplements were provided. (25) Decubitus ulcer: Status: Resolved Code(s): L89.90 - Pressure ulcer of unspecified site, unspecified stage Plan: Stage 1 left heel. Placed in heel protector and it is no longer boggy to palpation at DC from rehab (26) Subluxation of left shoulder joint: Status: Acute Code(s): S43.002A - Unspecified subluxation of left shoulder joint, initial encounter Plan: due to CVA/Left hemiparesis. Placed in a rotator cuff sling prior to DC from rehab. Plan 1. DC to [facility] on 01/17/25. 2. Allergies/Procedures Done in Hospital Allergies levofloxacin (From Levaquin) Adverse Reaction (Verified 01/14/25 15:15) acute delirium Procedures: None Type of Care/Length of Stay Estimated LOS: Convalescent Care Less Than 30 days Type of Care Needed: Skilled Rehab Potential: Fair ( ) Prognosis: Fair Additional Orders/Day of Discharge Additional Orders: He needs to be evaluated and treated by psych. H&P will serve as current which was dated: 12/31/24 Day of Discharge: 01/17/25 Dietary and Speech Recommendations Dietitian Recommendations/Changes: Continue Cardiac diet to manage medial conditions with 1400ml fluid restriction. Will order chocolate ensure milkshake with dinner. Will order 240ml chocolate EPHP with lunch. Will discontinue ensure clear with medpass due to pt refusing. Will monitor weight trends. Follow Up Care Please Follow Up With: Dr. Padilla When: 01/28/25 at 11:30AM Please Follow Up With: Philip Villa MD Please Follow Up With: Mateo Crane ETL LEAD, ETL LEAD-C Discharge Plan Admission Admit Date/Time: 12/30/24 18:14 Primary Reason for Your Visit: Debility due to intracerebral bleed. Attending Provider: Savanna Kelly Primary Care Provider: Briseida Vergara Consulting Providers: Nohelia Aleman Instructions Additional Instructions / Restrictions: 1. He will need to follow up with Mateo Crane NP from [facility] at some point. currently not able to sit in a WC and maintain and upright posture. 2. He has an appt with Dr. Padilla (neurosurgery) scheduled. Will defer restarting Xarelto to Dr. Padilla. 3. He should also follow up with neurology as an OP. 4. He has subluxation/pain of the Left shoulder and was placed in a rotator cuff sling on 01/16/25 to help with this. Subluxation is due to Severe weakness of the left arm........can only really flex his fingers weakly at the time of [facility] rehab. 5. He is incontinent of stool and urine. 6. He had a stage I decub of the left heel which has resolved. 7. He is severely depressed. Now up to 22.5 mg of Remeron at . Appetite hasimproved and he rarelyrefuses a meal now. Has lost 11 lbs form 12/30/24 to 01/14/25. 8. CT scan on 01/15/25 shows the subdural hematoma is decreasing in size and there are no new or enlarging acute intracranial findings. Unfortunately the CTscan shows chronic moderate-sized ischemic infarct within the bilateral parietal?occipital watershed areas, left greater than right. There are mild scattered supratentorial white matter hypodensities and a lacunar type infarct within the right basal ganglia. MRI on 12/26/24 at previous hospital did not clearly show any ischemic infarcts. These may have occurred following [facility] and withholding anticoagulation due to the bleeding. This helps to explain why he really has not made much progress on rehab. 9. BP has recently been on the low side and Lisinopril was discontinued on . BP at [place] is better and within goal of < 130/80. 10. He had acute cystitis and LLL PNA while on rehab. He had Delirium with Levaquin and it resolvedwith discontinuation of the drug. Discharge Orders/Prescriptions Prescriptions: New bisacodyl 10 mg Suppository 10 mg NE X1 PRN (Reason: Constipation) Qty: 0 0RF magnesium hydroxide 400 mg/5 mL Suspension 30 ml PO X1 PRN (Reason: Constipation) Qty: 0 0RF mirtazapine 15 mg Tablet 22.5 mg PO 1999 Qty: 1 0RF gabapentin 100 mg Capsule 100 mg PO 0600,1800 Qty: 0 0RF metoprolol succinate 25 mg Tablet Extended Release 24 Hr 25 mg PO QHS Qty: 0 0RF magnesium chloride 64 mg Tablet,Delayed Release (Dr/Ec) 128 mg PO DAILY Qty: 0 0RF menthol-zinc oxide [Calmoseptine] 0.44-20.6 % Ointment 1 applic topical BID Qty: 0 0RF Protocol: *Topical Application Instructions APPLICATION INSTRUCTIONS: Coccyx sennosides-docusate sodium [Stimulant Laxative Plus] 8.6-50 mg Tablet 2 tab PO BID Qty: 0 0RF pantoprazole 40 mg Tablet,Delayed Release (Dr/Ec) 40 mg PO DAILY Qty: 0 0RF Biotene Dry Mouth Oral Rinse Mouthwash 15 ml mucous membrane 4X/DAY Qty: 0 0RF Petrolatum 33% [Eucerin Eqivalent] 1 applic topical QHS Qty: 1 0RF Rx Instructions: apply to the distal LE's from the knee to the toes. sodium chloride 1,000 mg Tablet,Soluble 1,000 mg PO BID Qty: 0 0RF Continued metoprolol succinate 50 mg tablet extended release 24 hr 50 mg PO DAILY Changed acetaminophen 500 mg tablet 1,000 mg PO Q8 PRN (Reason: pain/fever) Qty: 1 0RF oxycodone 5 mg tablet 5 mg PO Q6H PRN (Reason: pain 4-10) 7 Days Qty: 10 0RF Discontinued lisinopril 20 mg tablet 20 mg PO DAILY Qty: 90 3RF cyclobenzaprine 5 mg tablet 5 mg PO TID PRN (Reason: muscle spasm) Mag Glycinate 100 mg tablet 200 mg PO DAILY Referrals / Follow Up: Hi Mckeon [Other] - 01/28/25 11:[address] Scan [Other] - 01/28/25 10:45 am Briseida Vergara MD [Primary Care Provider] - (PT GOING TO SNF ) Disposition Disposition (needs filled in before D/C Order can be placed): Longterm Facility (2) Intracerebral bleed due to trauma Qualifiers: Encounter type: subsequent encounter Laterality: unspecified laterality [place] consciousness presence/duration: without LOC Qualified Code(s): S06.360D - Traumatic hemorrhage of cerebrum, unspecified, without loss of consciousness, subsequent encounter (7) Depression Qualifiers: Depression Type: reactive depression Qualified Code(s): F32.9 - Major depressive disorder, single episode, unspecified (8) Urinary incontinence Qualifiers: Urinary Incontinence type: urinary incontinence without sensory awareness Qualified Code(s): N39.42- Incontinence without sensory awareness (9) Fecal incontinence Qualifiers: Fecal incontinence type: unspecified Qualified Code(s): R15.9 - Full incontinence of feces (13) Peripheral neuropathy Qualifiers: Peripheral neuropathy type: polyneuropathy, other Qualified Code(s): G62.89 - Other specified polyneuropathies (22) Sleep apnea Qualifiers: Sleep apnea type: obstructive Qualified Code(s): G47.33 - Obstructive sleep apnea (adult) (pediatric) (26) Subluxation of left shoulder joint Qualifiers: Encounter type: initial encounter Qualified Code(s): S43.002A - Unspecified subluxation of left shoulder joint, initial encounter 01/16/25 1223 Cosigner Signature (if applicable): CC: Dr. Nohelia Aleman MD; Dr. Briseida Vergara MD ~ ADDENDUM by Dr. Savanna Kelly DO on 01/17/25 at 1109 Addendum CBC, Lipid panel and CMP following admission to [facility]. Has had ischemic CVA's. Goal for the LDL is 70 or less. 01/17/25 1109 cc: Dr. Nohelia Aleman MD; Dr. Briseida Vergara MD ~* Signed [facility]07-24-2025 Progress note Author [facility] Note Date/Time January 16, 2025 4:59 pm [facility] Medical Records Department [address] [place] [id number] Progress Note 01/16/25 1447 MR#: [id number] Acct: [id number] Name: SUNG YAÑEZ Rep #:[id number] : 1940 84 From: Candy Murdock ETL LEAD-C PCP: Dr. Briseida Vergara MD Status:ADM IN Location: [place] [address] Progress Note Prior to meeting with the patient, Ton, his and son at bedside, I did have a discussion with Dr. Kelly about the appropriateness of an outpatient palliative care referral. She felt that it would warrant a conversation with the pt and his family and a family meeting was arranged. Upon meeting with Ton, his , Moise and their son, Dr. Kelly did discuss the patients current comorbidities as well as his most recent CT scan showing multiple areas of infarcts to the brain as well as his progress thus far. She then introduced the concept of palliative care in which they were open to further discussions. Ton states that his goals of care is to return home. He understands that he may require assistive devices life long but ultimately wantsto go home. He is being discharged tomorrow to SNF for continued rehab. Pt has been receiving symptom management for central poststroke pain which is being treated with low dose Gabapentin 100mg PO bid. This appears to be controlling his pain, at this time. I explained the role outpatient palliative care could have, in his case, with symptom management for his multiple symptoms he is experiencing with depression,neuropathic pain and constipation. Ton does have a Palliative Performance scale score of 50% and a Palliative Performance Index (PPI) of 3.5. The PPI has significantly improved from 12.5 atadmission, although he continues to receive Remeron at night for his depressivesymptoms and appetite stimulation qualities. I do feel that the pt and his family would greatly benefit from outpatient palliative care services. The pt and family are requesting a referral to outpatient palliative care with no preference for agency. Case vee devine family and pt request. All questions answered. I did see this patient with Dr. Kelly and as a adjunct to her conversation during the family meeting Physical Exam Narrative Pt was not assessed formally and only a discussion took place Const oriented x3 General Appearance: cooperative, comfortable and well kempt Orientation / Consciousness: awake, oriented to person, oriented to place and oriented to time Nutritional Appearance: thin Psych Appearance: appropriate Attitude: withdrawn Mood & Affect: flat affect Thought Process: normal thought process Thought Content: normal thought content Memory / Cognition: other alert to person, place and time. 01/16/25 1510 <Electronically signed by Candy SUTTON> Candy SUTTON Cosigner Signature (if applicable): 01/16/25 1659 <Electronically signed by Savanna Kelly DO> CC: ~ Signed [facility] Work Phone: [phone] 603-998407-24-2025 Progress note [facility] Medical Records Department [address] [place] [address] Progress Note 01/16/25 1447 MR#: [id number] Acct: [id number] Name: SUNG YAÑEZ Rep #:[id number] : 1940 84 From: Candy SUTTON PCP: Dr. Briseida Vergara MD Status:ADM IN Location: [id number] Progress Note Prior to meeting with the patient, Ton, his and son at bedside, I did have a discussion with Dr. Kelly about the appropriateness of an outpatient palliative care referral. She felt that it would warrant a conversation with the pt and his family and a family meeting was arranged. Upon meeting with Ton, his , Moise and their son, Dr. Kelly did discuss the patients current comorbidities as well as his most recent CT scan showing multiple areas of infarcts to the brain as well as his progress thus far. She then introduced the concept of palliative care in which they were open to further discussions. Ton states that his goals of care is to return home. He understands thathe may require assistive devices life long but ultimately wantsto go home. He is being discharged tomorrow to SNF for continued rehab. Pt has been receiving symptom management for central poststroke pain which is being treated with low dose Gabapentin 100mg PO bid. This appears to be controlling his pain, at this time. I explained the role outpatient palliative care could have, in his case, with symptom management for his multiple symptoms he is experiencing with depression,neuropathic pain and constipation. Ton does have a Palliative Performance scale score of 50% and a Palliative Performance Index (PPI) of 3.5. The PPI has significantly improved from 12.5 atadmission, although he continues to receive Remeron at night for his depressivesymptoms and appetite stimulation qualities. I do feel that the ptand his family would greatly benefit from outpatient palliative care services. The pt and family are requesting a referral to outpatient palliative care with no preference for agency. Case vee devine family and pt request. All questions answered. I did see this patient with Dr. Kelly and as a adjunct to her conversation during the family meeting Physical Exam Narrative Pt was not assessed formally and only a discussion took place Const oriented x3 General Appearance: cooperative, comfortable and well kempt Orientation / Consciousness: awake, oriented to person, oriented to place and oriented to time Nutritional Appearance: thin Psych Appearance: appropriate Attitude: withdrawn Mood & Affect: flat affect Thought Process: normal thought process Thought Content: normal thought content Memory / Cognition: other alert to person, place and time. 01/16/25 1510 Candy Zacarias NP-C Cosigner Signature (if applicable): 01/16/25 6783 CC: ~ Signed [facility]07-24-2025 [facility] Medical Records Department [address] [place] [address] Discharge Summary 01/16/25 1224 MR#: [id number] Acct: [id number] Name: SUNG YAÑEZ Rep #: [id number] : 1940 84 From: Savanna Kelly DO PCP: Dr. Briseida Vergara MD Status:ADM IN Location: [place] [address] Providers Date of Admission: 12/30/24 Date of Discharge: 01/17/25 Primary Care Physician: Dr. Briseida Vergara MD Consultations 01/09/25 11:11 Consult: Pain Management Routine Consulting Provider: Nohelia Aleman Reason for Consult: torticollis EMERGENT Consult: No MD Notified: Yes Date Notified: 01/09/25 Time Notified: 11:11 Method of Notification: Verbal Reason For Visit: SUBDURAL HEMATOMA Diagnosis Discharge Diagnosis (1) Debility: Status: Acute Code(s): R53.81 - Other malaise (2) Intracerebral bleed due to trauma: Status: Acute Code(s): S06.36AA - Traumatic hemorrhage of cerebrum, unspecified, with loss of consciousness status unknown, initial encounter Qualifiers: Encounter type: subsequent encounter Laterality: unspecified laterality Loss of consciousness presence/duration: without LOC Qualified Code(s): S06.360D - Traumatic hemorrhage of cerebrum, unspecified, without loss of consciousness, subsequent encounter Plan: CT head on 01/15/25 shows Interval improvement in the size of the subdural hematoma centered along the R falx and tentorium measuring 5 X 1.6 cm, down from 5 X 2.1 cm at presentation to the ED on 12/23/24. (3) Ischemic cerebrovascular accident (CVA): Status: Acute Code(s): I63.9 - Cerebral infarction, unspecified Plan: No initially present at the time of the ICH. CTB on 01/15/25 shows chronic moderate-sized ischemic infarct within the bilateral parietal occipital watershed areas, left greater than right. Mild scattered supratentorial white matter hypodensities and a lacunar infarct in the right basal ganglia. (4) Mild cognitive impairment: Status: Acute Code(s): G31.84 - Mild cognitive impairment of uncertain or unknown etiology (5) Acute left-sided weakness: Status: Acute Code(s): R53.1 - Weakness Plan: Also with some weakness in the RLE (6) Paresthesias: Status: Acute Code(s): R20.2 - Paresthesia of skin Plan: Left face, arm and leg. Has chronic neuropathy in his feet. (7) Depression: Status: Chronic Code(s): F32.A - Depression, unspecified Qualifiers: Depression Type: reactive depression Qualified Code(s): F32.9 - Major depressive disorder, single episode, unspecified Plan: Depression is long standing but, he never sought treatment. Started on Remeron 15 mg at admission to rehab and increased to 22.5 mg on 01/13/25. Would benefit from psychotherapy. He is eating better and not refusing meals any longer. (8) Urinary incontinence: Status: Chronic Code(s): R32 - Unspecified urinary incontinence Qualifiers: Urinary Incontinence type: urinary incontinence without sensory awareness Qualified Code(s): N39.42 - Incontinence without sensory awareness Plan: Incontinent of urine most of the time. Will not even alert nursing when he has been incontinent. The week prior to DC he had been continent a few times but, has been regressing the last 5 -7 days prior to discharge. He denies dysuria and has had no fevers and no leukocytosis. We check a UA prior to DC and it was negative for infection. UA showed no evidence of UTI. (9) Fecal incontinence: Status: Chronic Code(s): R15.9 - Full incontinence of feces Qualifiers: Fecal incontinence type: unspecified Qualified Code(s): R15.9 - Full incontinence of feces (10) Essential (primary) hypertension: Status: Chronic Code(s): I10 - Essential (primary) hypertension Plan: Blood pressure was low early in the week of discharge so we have been decreasing the antihypertensives. He is only on Metoprolol at the time of discharged from rehab and this is needed to control the HR with AF. With discontinuation of Lisinopril the BP improved and is within goal at the time of DC from rehab. (11) Paroxysmal atrial fibrillation: Status: Chronic Code(s): I48.0 - Paroxysmal atrial fibrillation Plan: Xarelto has been on hold since the ICH. He has follow up with Dr. Padilla scheduled 01/28/25 and will defer to Dr. Padilla to restart chronic anticoagulation. The SDH has shrunk from 5x2.1 cm to 5X1.6 cm at DC from rehab. No active bleeding on CTB done 01/15/25. (12) Chronic anticoagulation: Status: Chronic Code(s): Z79.01 - intermediate frame tender (current) use of anticoagulants Plan: Will defer to neurosurgery to determine when he can restart anticoagulation. He is going to follow up with Dr. Padilla. (13) Peripheral neuropathy: Status: Chronic Code(s): G62.9 - Polyneuropathy, unspecified Qualifiers: Peripheral neuropathy type: polyneuropathy, other Qualified Code(s): G62.89 - Other specified polyneuropathi (more content not included)...[facility]07-23-2025 Progress note Author Savanna Ireneboris [facility] Note Date/Time January 15, 2025 1:06 pm [facility] Medical Records Department [address] [place] [address] Progress Note 01/14/25 1149 MR#: [id number] Acct: [id number] Name: SUNG YAÑEZ Rep #:[id number] : 1940 84 From: Savanna Kelly DO PCP: Dr. Briseida Vergara MD Status:ADM IN Location: [place] [address] Subjective Subjective Afebrile Blood pressure over the past 24 hours has ranged from 92/58 (this AM) to 105/62 heart rate has ranged from 95-101. Not alerting nursing when he has been incontinent or when he has to urinate or have a bowel movement. Had been continent of stool toward the end of last week. Poor oral intake. Fluid intake yesterday was only 910 cc. Has not refused any meals for the past 48 hours but intake varies from 25% to 75%. Poor fluid intake. Does not come close to drinking his 1400 cc's he is allowed. Denies GARCIA toady. no CP, palpitations, lightheadedness, N/V/cough/dysuria. Objective Data Objective Data Vital Signs: Vital Signs Temp Pulse Resp BP Pulse Ox O2 Del Method O2 Flow Rate 97.8 F 95 15 92/58 L 94 Room Air 2 01/14/25 06:00 01/14/25 07:49 01/14/25 06:00 01/14/25 07:49 01/14/25 06:44 01/14/25 06:44 01/13/25 06:00 FiO2 94 01/05/25 22:00 Oxygen Flow Rate (L/min) 2 Oxygen Delivery Method Room Air Weight: 191 lb 2.252 oz Body Mass Index (BMI) 23.8 Intake & Output: Intake and Output for Last 24 Hours 01/12/25 01/13/25 01/14/25 23:59 23:59 23:59 Intake Total 885 / 885 910 / 910 340 / 340 Output Total 0 / 0 200 / 200 Balance 885 / 885 710 / 710 340 / 340 Lab / Micro Data 01/15/25 05:29 01/15/25 05:29 Micro: Microbiology 12/31/24 15:00 Urine Catheter - Catheter Urine Culture - Final Enterococcus faecalis 01/01/25 06:58 Stool Stool Occult Blood (AMOS) - Final Occult Blood Positive Physical Exam Const Constitutional Narrative: poor voice quality, not projecting and soft. does better when he is talking with his company at night. appears very weak and he is keeping his eyes closed.Poor eye contact with me. HEENT Mouth: dry mucous membranes Resp clear to auscultation bilaterally Effort and Inspection: Negative for tachypneic or labored Cardio no gallops Cardio Narrative: A-fib with controlled ventricular response GI normal to inspection, nondistended, normoactive bowel sounds and soft to palpation GI Narrative: No guarding with palpation Extremity no calf tenderness General Extremity: Negative for edema Assessment & Plan Assessment/Plan (1) Debility: (2) Intracerebral bleed due to trauma: QUALIFIERS: Encounter type: subsequent encounter Laterality: unspecified laterality Loss of consciousness presence/duration: without LOC Qualified Code(s): S06.360D - Traumatic hemorrhage of cerebrum, unspecified, without loss of consciousness, subsequent encounter (3) Mild cognitive impairment: (4) Acute left-sided weakness: (5) Paresthesias: (6) Depression: QUALIFIERS: Depression Type: reactive depression Qualified Code(s): F32.9 - Major depressive disorder, single episode, unspecified PLAN: Depression is long standing but, he never sought treatment. Started on Remeron 15 mg at admission to rehab and increased to 22.5 mg on 01/13/25. Would benefit from psychotherapy. (7) Urinary incontinence: QUALIFIERS: Urinary Incontinence type: urinary incontinence without sensory awareness Qualified Code(s): N39.42 - Incontinence without sensory awareness PLAN: Incontinent of urine most of the time. Will not even alert nursing when he has been incontinent. The week prior to DC he had been continent a few timesbut, has been regressing the last 5 -7 days prior to discharge. He denies dysuria and has had no fevers and no leukocytosis. We check a UA prior to DC and it was negative for infection. (8) Fecal incontinence: QUALIFIERS: Fecal incontinence type: unspecified Qualified Code(s): R15.9 - Full incontinence of feces (9) Essential (primary) hypertension: PLAN: Blood pressure was low early in the week of discharge so we have been decreasing the antihypertensives. He is only on Metoprolol at the time of discharged from rehab and this is needed to control the HR with AF. (10) Paroxysmal atrial fibrillation: (11) Chronic anticoagulation: PLAN: Will defer to neurosurgery to determine when he can restart anticoagulation. He is going to follow up with Dr. Padilla. (12) Peripheral neuropathy: QUALIFIERS: Peripheral neuropathy type: polyneuropathy, other Qualified Code(s): G62.89 - Other specified polyneuropathies PLAN: Not c/o pain in the legs at the time of DC. He started to c/o pain in theL arm and the left leg while on rehab and this was attributed to central neuropathic pain related to the intracerebral bleed. He was started on Gabapentin 100 mg BID and this has been effective in relieving that pain. (13) PAD (peripheral artery disease): (14) Heme positive stool: PLAN: HGB is WNL. He has no nausea or abd pain. He was started on a PPI because he was having some N/V early in the admission and he no longer has N/V/heartburn or epigastric pain. (15) Hyponatremia: PLAN: W/U consistent with SIADH. Placed on salt tabs and fluid restriction of 1400 cc's daily. Never even comes close to taking 1400 cc's in 24 H. We have been encouraging him to increase his fluid intake to no avail. 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 twice daily (17) Torticollis, acquired: PLAN: Due to hypertonicity of muscles in the left neck and upper thoracic area. He had a Botox injection from Dr. Aleman and this is improved significantly. Gael longer has torticollis or lateral James. (18) Laterocollis: (19) Acute cystitis with hematuria: PLAN: Present at admission to rehab. Due to Enterococcus faecalis. It was sensitive to Macrobid and he was taking Macrobid but when he developed a left basilar pneumonia he was transitioned to Levaquin. He developed acute delirium after a few days on intravenous Levaquin and he was transition from Levaquin to Augmentin to finish appropriate course of treatment for left lower lobe pneumonia and cystitis. (20) Hospital-acquired pneumonia: PLAN: Resolved with Levaquin eith transition to Augmentin due to acute deliriumon Levaquin. (21) Sleep apnea: QUALIFIERS: Sleep apnea type: obstructive Qualified Code(s): G47.33 - Obstructive sleep apnea (adult) (pediatric) PLAN: This was diagnosed many years ago and pt has not been compliant with CPAP and does not wear oxygen when sleeping. He had a overnight trending pulse ox while on rehab and he had only 1 and 1/2 minutes when O2 sat was 89 or less. There were no desaturation events > 60 sec. Does not need oxygen supplementation at night. (22) Acute delirium: PLAN: due to Levaquin. Resolved with discontinuation of Levaquin. (23) Weight loss, non-intentional: (24) Decubitus ulcer: QUALIFIERS: Pressure injury location: heel Pressure injury stage:stage 1 Laterality: left Qualified Code(s): L89.621 - Pressure ulcer of left heel, stage 1 PLAN: Plan 1. Continue therapy 2. Hold lisinopril for hypotension 3. Lab ordered for the a.m. 4. Check a UA today Charges/Coding Visit Charges Inpatient E&M: 22750 Subs Hosp L1 01/15/25 1306 <Electronically signed by Savanna Kelly DO> Savanna Kelly DO Cosigner Signature (if applicable): CC: ~ Signed [facility] Work Phone: [phone]) [phone] Progress note Author Savanna Kelly [facility] Note Date/Time January 15, 2025 12:5 7pm [facility] Medical Records Department [address] [place] [address] Progress Note 01/15/25 1225 MR#: [id number] Acct: [id number] Name: SUNG YAÑEZ Rep #:[id number] : 1940 84 From: Savanna Kelly DO PCP: Dr. Briseida Vergara MD Status:ADM IN Location: [place] [address]-1 Subjective Subjective Afebrile VSS - Maintaining appropriate oxygen saturation on RA Oral intake - FOOD has been doing better with food. He refused lunch yesterdaybut ate -50 to 74% of his supper and he had 75 to 100% of his breakfast this morning. FLUIDS fluid intake yesterday was 1090 cc. Discussed with nursing - no problems that need addressed. Remains incontinent of urine and stool. Reviewed the THERAPY notes Medication list reviewed. UA yesterday showed 0-5 RBCs and 0-5 WBCs per high-power field. There was no bacteria seen. He had 0-5 hyaline casts. Lab today shows a normal white blood cell count of 7.0 hemoglobin is 13.2 which is down from 15.1 on 01/06/2025. Platelets are within normal limits. Sodium is 134 and the potassium is 4.4. BUN is stable at 28 and the creatinine is 0.73 which is down from 0.96 on 01/10/2025. BUN/creatinine ratio is 38.2 and we continue to encourage him to drink 1400 cc daily but he is not compliant with this. He is c/o a GARCIA today. He did not have a GARCIA yesterday but, he had 1 the day prior. I suspect this is due to dehydration but, will check a CTB today. Denies chest pain, shortness of breath, palpitations, abdominal pain, nausea/vomiting, calf tenderness. Denies pain in the left arm and the left legtoday. He tells me he has a little pain in his left shoulder. No neck pain andno torticollis Objective Data Objective Data Vital Signs: Vital Signs Temp Pulse Resp BP Pulse Ox O2 Del Method O2 Flow Rate 98.9 F 97 16 93/55 L 96 Room Air 2 01/15/25 06:00 01/15/25 08:11 01/15/25 06:00 01/15/25 06:00 01/15/25 06:00 01/15/25 09:55 01/14/25 20:13 FiO2 94 01/05/25 22:00 Oxygen Flow Rate (L/min) 2 Oxygen Delivery Method Room Air Weight: 191 lb 2.252 oz Body Mass Index (BMI) 23.8 Intake & Output: Intake and Output for Last 24 Hours 01/13/25 01/14/25 01/15/25 23:59 23:59 23:59 Intake Total 910 / 910 1090 / 1090 320 / 320 Output Total 200 / 200 350 / 350 Balance 710 / 710 740 / 740 320 / 320 Lab / Micro Data 01/15/25 05:29 01/15/25 05:29 Labs: Laboratory Results - last 24 hr 01/14/25 16:00: Urine Color Yellow, Urine Clarity Clear, Urine pH 5.0, Ur Specific [place] 1.020, Urine Protein 15 H, Urine Glucose (UA) Normal, Urine Ketones Negative, Urine Occult Blood Negative, Urine Nitrite Negative, Urine Bilirubin Negative, Urine Urobilinogen Normal, Ur Leukocyte Esterase Negative, Urine RBC 0-5 SEEN, Urine WBC 0-5 SEEN, Ur Squamous Epith Cells 0-5 SEEN, Urine Bacteria 0 SEEN, Hyaline Casts 0-5 SEEN, Urine Mucus 0 SEEN 01/15/25 05:29: WBC 7.0, RBC 4.28 L, Hgb 13.2, Hct 39.0 L, MCV 91.1, MCH 30.8, MCHC 33.8, RDW Std Deviation 46.2 H, RDW Coeff of Chastity 13.8, Plt Count 194, MPV 11.7, Sodium 134, Potassium 4.4, Chloride 103, Carbon Dioxide 20.7 L, Anion Gap 10, BUN 28 H, Creatinine 0.73, Estim Creat Clear Calc 85.09, Est GFR (MDRD) Non-Af 91, BUN/Creatinine Ratio 38.2 H, Glucose 105 H, Calcium 9.1, Total Bilirubin 0.78, AST 32, ALT 22, Alkaline Phosphatase 144 H, Total Protein 6.1, Albumin 3.1L, Globulin 3.1, Albumin/Globulin Ratio 1.0 Micro: Microbiology 12/31/24 15:00 Urine Catheter - Catheter Urine Culture - Final Enterococcus faecalis 01/01/25 06:58 Stool Stool Occult Blood (AMOS) - Final Occult Blood Positive Physical Exam Const no apparent distress HEENT Mouth: dry mucous membranes Neck General: trachea midline Resp normal respiratory effort and clear to auscultation bilaterally Resp Narrative: good respiratory effort today......lungs CTA, not tachypneic Cardio Cardio Narrative: Irregular irregular rhythm with controlled ventricular response GI normal to inspection, nondistended, normoactive bowel sounds and soft to palpation GI Narrative: No guarding with palpation Extremity no calf tenderness General Extremity: Negative for edema Skin Rashes: no rashes Assessment & Plan Assessment/Plan (1) Debility: (2) Intracerebral bleed due to trauma: QUALIFIERS: Encounter type: subsequent encounter Laterality: unspecified laterality Loss of consciousness presence/duration: without LOC Qualified Code(s): S06.360D - Traumatic hemorrhage of cerebrum, unspecified, without loss of consciousness, subsequent encounter (3) Mild cognitive impairment: (4) Acute left-sided weakness: (5) Paresthesias: (6) Depression: QUALIFIERS: Depression Type: reactive depression Qualified Code(s): F32.9 - Major depressive disorder, single episode, unspecified PLAN: Depression is long standing but, he never sought treatment. Started on Remeron 15 mg at admission to rehab and increased to 22.5 mg on 01/13/25. Would benefit from psychotherapy. (7) Urinary incontinence: QUALIFIERS: Urinary Incontinence type: urinary incontinence without sensory awareness Qualified Code(s): N39.42 - Incontinence without sensory awareness PLAN: Incontinent of urine most of the time. Will not even alert nursing when he has been incontinent. The week prior to DC he had been continent a few timesbut, has been regressing the last 5 -7 days prior to discharge. He denies dysuria and has had no fevers and no leukocytosis. We check a UA prior to DC and it was negative for infection. (8) Fecal incontinence: QUALIFIERS: Fecal incontinence type: unspecified Qualified Code(s): R15.9 - Full incontinence of feces (9) Essential (primary) hypertension: PLAN: Blood pressure was low early in the week of discharge so we have been decreasing the antihypertensives. He is only on Metoprolol at the time of discharged from rehab and this is needed to control the HR with AF. (10) Paroxysmal atrial fibrillation: (11) Chronic anticoagulation: PLAN: Will defer to neurosurgery to determine when he can restart anticoagulation. He is going to follow up with Dr. Padilla. (12) Peripheral neuropathy: QUALIFIERS: Peripheral neuropathy type: polyneuropathy, other Qualified Code(s): G62.89 - Other specified polyneuropathies PLAN: Not c/o pain in the legs at the time of DC. He started to c/o pain in theL arm and the left leg while on rehab and this was attributed to central neuropathic pain related to the intracerebral bleed. He was started on Gabapentin 100 mg BID and this has been effective in relieving that pain. (13) PAD (peripheral artery disease): (14) Heme positive stool: PLAN: HGB is WNL. He has no nausea or abd pain. He was started on a PPI because he was having some N/V early in the admission and he no longer has N/V/heartburn or epigastric pain. (15) Hyponatremia: PLAN: W/U consistent with SIADH. Placed on salt tabs and fluid restriction of 1400 cc's daily. Never even comes close to taking 1400 cc's in 24 H. We have been encouraging him to increase his fluid intake to no avail. 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 twice daily (17) Torticollis, acquired: PLAN: Due to hypertonicity of muscles in the left neck and upper thoracic area. He had a Botox injection from Dr. Aleman and this is improved significantly. Bakario longer has torticollis or lateral James. (18) Laterocollis: (19) Acute cystitis with hematuria: PLAN: Present at admission to rehab. Due to Enterococcus faecalis. It was sensitive to Macrobid and he was taking Macrobid but when he developed a left basilar pneumonia he was transitioned to Levaquin. He developed acute delirium after a few days on intravenous Levaquin and he was transition from Levaquin to Augmentin to finish appropriate course of treatment for left lower lobe pneumonia and cystitis. (20) Hospital-acquired pneumonia: PLAN: Resolved with Levaquin eith transition to Augmentin due to acute deliriumon Levaquin. (21) Sleep apnea: QUALIFIERS: Sleep apnea type: obstructive Qualified Code(s): G47.33 - Obstructive sleep apnea (adult) (pediatric) PLAN: This was diagnosed many years ago and pt has not been compliant with CPAP and does not wear oxygen when sleeping. He had a overnight trending pulse ox while on rehab and he had only 1 and 1/2 minutes when O2 sat was 89 or less. There were no desaturation events > 60 sec. Does not need oxygen supplementation at night. (22) Acute delirium: PLAN: due to Levaquin. Resolved with discontinuation of Levaquin. (23) Weight loss, non-intentional: (24) Decubitus ulcer: QUALIFIERS: Pressure injury location: heel Pressure injury stage:stage 1 Laterality: left Qualified Code(s): L89.621 - Pressure ulcer of left heel, stage 1 PLAN: Plan 1. Continue therapy 2. Zestril was discontinued yesterday due to low blood pressure. Will continueto monitor blood pressures closely. 3. Encouraged him to drink 1400 cc of fluid daily......... has not been doing this for several days. 4. CTB without contrast today due to recent c/o GARCIA......I suspect this isw due to dehydration rather than ICH. BP is low and BUN/CREAT ratio is very elevated. Poor fluid intake. 5. Discharging to SNF on 01/17/25. Talked with Moise today and updated her on labs. Answered her questions. Charges/Coding Visit Charges Inpatient E&M: 85013 Subs Hosp L1 01/15/25 1257 <Electronically signed by Savanna Kelly DO> Savanna Kelly DO Cosign Signature (if applicable): CC: ~ Signed [facility] Work Phone: [phone] Radiology Diagnostic study note [facility] Imaging Services [address], [place] [address] Brain/Head without Contrast MR#: [id number] Acct: [id number] Name: SUNG YAÑEZ Rep #: [id number] : 1940 M 84 From: Moise Roy MD PCP: Dr. Briseida Vergara MD Status: ADM IN Study:Brain/Head without Contrast Date of Exa m: 01/15/25 Exam# [id number] Ordering Dr: Savanna Kelly DO EXAM: BRAIN/HEAD WITHOUT CONTRAST CLINICAL HISTORY: 84 y/o M with CEPHALGIA. COMPARISON: CT head, CTA head and neck 12/23/2024. TECHNIQUE: Routine CT imaging of the head without IV contrast. Additional multiplanar reformats were obtained. Dose reduction techniques were used including intermediate exposure control (AEC),iterative reconstruction technique, and/or mA and/or KV dose adjustments based on patient's size. 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 Thereis mild associated mass effect upon the posterior limb of the right lateral ventricle, which is unchanged. No new or enlarging acute intracranial hemorrhage. Chronic moderate-sized ischemic infarct within the bilateral parietal-occipital watershed areas, [id number]. Mild scattered supratentorial white matter hypodensities. Lacunar type infarct within the right basal ganglia. Mild generalized cerebral volume loss with concordant prominence of the ventricles and subarachnoidspaces. Prior ocular lens replacements. The visualized paranasal sinuses and mastoids are unremarkable. No acute calvarial fracture or scalp hematoma. CT/Brain/Head without Contrast IMPRESSION: 1. No new or enlarging acute intracranial finding. 2. Interval improvement in the right falx/tentorial subdural hematoma as described. 3. Additional chronic findings as described. Reading Location: [id number] CC: Dr. Briseida Vergara MD; Dr. Savanna Kelly DO ~ Hypoid Gear Tester: Signed [facility]07-23-2025 Progress note [facility] Medical Records Department [address] [place] [address] Progress Note 01/14/25 1149 MR#: [id number] Acct: [id number] Name: SUNG YAÑEZ Rep #:[id number] : 1940 84 From: Savanna Yancy Robin PCP: Dr. Briseida Vergara MD Status:ADM IN Location: [place] [address] Subjective Subjective Afebrile Blood pressure over the past 24 hours has ranged from 92/58 (this AM) to 105/62 heart rate has ranged from 95-101. Not alerting nursing when he has been incontinent or when he has to urinate or have a bowel movement. Had been continent of stool toward the end of last week. Poor oral intake. Fluid intake yesterday was only 910 cc. Has not refused any meals for the past 48 hours but intake varies from 25% to 75%. Poor fluid intake. Does not come close to drinking his 1400 cc's he is allowed. Denies GARCIA toady. no CP, palpitations, lightheadedness, N/V/cough/dysuria. Objective Data Objective Data Vital Signs: Vital Signs Temp Pulse Resp BP Pulse Ox O2 Del Method O2 Flow Rate 97.8 F 95 15 92/58 L 94 Room Air 2 01/14/25 06:00 01/14/25 07:49 01/14/25 06:00 01/14/25 07:49 01/14/25 06:44 01/14/25 06:44 01/13/25 06:00 FiO2 94 01/05/25 22:00 Oxygen Flow Rate (L/min) 2 Oxygen Delivery Method Room Air Weight: 191 lb 2.252 oz Body Mass Index (BMI) 23.8 Intake & Output: Intake and Output for Last 24 Hours 01/12/25 01/13/25 01/14/25 23:59 23:59 23:59 Intake Total 885 / 885 910 / 910 340 / 340 Output Total 0 / 0 200 / 200 Balance 885 / 885 710 / 710 340 / 340 Lab / Micro Data 01/15/25 05:29 01/15/25 05:29 Micro: Microbiology 12/31/24 15:00 Urine Catheter - Catheter Urine Culture - Final Enterococcus faecalis 01/01/25 06:58 Stool Stool Occult Blood (AMOS) - Final Occult Blood Positive Physical Exam Const Constitutional Narrative: poor voice quality, not projecting and soft. does better when he is talking with his company at night. appears very weak and he is keeping his eyes closed.Poor eye contact with me. HEENT Mouth: dry mucous membranes Resp clear to auscultation bilaterally Effort and Inspection: Negative for tachypneic or labored Cardio no gallops Cardio Narrative: A-fib with controlled ventricular response GI normal to inspection, nondistended, normoactive bowel sounds and soft to palpation GI Narrative: No guarding with palpation Extremity no calf tenderness General Extremity: Negative for edema Assessment & Plan Assessment/Plan (1) Debility: (2) Intracerebral bleed due to trauma: QUALIFIERS: Encounter type: subsequent encounter Laterality: unspecified laterality Loss of consciousness presence/duration: without LOC Qualified Code(s): S06.360D - Traumatic hemorrhage of cerebrum, unspecified, without loss of consciousness, subsequent encounter (3) Mild cognitive impairment: (4) Acute left-sided weakness: (5) Paresthesias: (6) Depression: QUALIFIERS: Depression Type: reactive depression Qualified Code(s): F32.9 - Major depressive disorder, single episode, unspecified PLAN: Depression is long standing but, he never sought treatment. Started on Remeron 15 mg at admission to rehab and increased to 22.5 mg on 01/13/25. Would benefit from psychotherapy. (7) Urinary incontinence: QUALIFIERS: Urinary Incontinence type: urinary incontinence without sensory awareness Qualified Code(s): N39.42 - Incontinence without sensory awareness PLAN: Incontinent of urine most of the time. Will not even alert nursing when he has been incontinent. The week prior to DC he had been continent a few timesbut, has been regressing the last 5 -7 days prior to discharge. He denies dysuria and has had no fevers and no leukocytosis. We check a UA prior to DC and it was negative for infection. (8) Fecal incontinence: QUALIFIERS: Fecal incontinence type: unspecified Qualified Code(s): R15.9 - Full incontinence of feces (9) Essential (primary) hypertension: PLAN: Blood pressure was low early in the week of discharge so we have been decreasing the antihypertensives. He is only on Metoprolol at the time of discharged from rehab and this is needed to control the HR with AF. (10) Paroxysmal atrial fibrillation: (11) Chronic anticoagulation: PLAN: Will defer to neurosurgery to determine when he can restart anticoagulation. He is going to follow up with Dr. Padilla. (12) Peripheral neuropathy: QUALIFIERS: Peripheral neuropathy type: polyneuropathy, other Qualified Code(s): G62.89 - Other specified polyneuropathies PLAN: Not c/o pain in the legs at the time of DC. He started to c/o pain in theL arm and the left leg while on rehab and this was attributed to central neuropathic pain related to the intracerebral bleed. He was started on Gabapentin 100 mg BID and this has been effective in relieving that pain. (13) PAD (peripheral artery disease): (14) Heme positive stool: PLAN: HGB is WNL. He has no nausea or abd pain. He was started on a PPI because he was having some N/V early in the admission and he no longer has N/V/heartburn or epigastric pain. (15) Hyponatremia: PLAN: W/U consistent with SIADH. Placed on salt tabs and fluid restriction of 1400 cc's daily. Never even comes close to taking 1400 cc's in 24 H. We have been encouraging him to increase his fluid intake to no avail. 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 twice daily (17) Torticollis, acquired: PLAN: Due to hypertonicity of muscles in the left neck and upper thoracic area. He had a Botox injection from Dr. Aleman and this is improved significantly. Bakario longer has torticollis or lateral James. (18) Laterocollis: (19) Acute cystitis with hematuria: PLAN: Present at admission to rehab. Due to Enterococcus faecalis. It was sensitive to Macrobid andhe was taking Macrobid but when he developed a left basilar pneumonia he was transitioned to Levaquin. He developed acute delirium after a few days on intravenous Levaquin and he was transition from Levaquin to Augmentin to finish appropriate course of treatment for left lower lobe pneumonia and cystitis. (20) Hospital-acquired pneumonia: PLAN: Resolved with Levaquin eith transition to Augmentin due to acute deliriumon Levaquin. (21) Sleep apnea: QUALIFIERS: Sleep apnea type: obstructive Qualified Code(s): G47.33 - Obstructive sleep apnea (adult) (pediatric) PLAN: This was diagnosed many years ago and pt has not been compliant with CPAP and does not wear oxygen when sleeping. He had a overnight trending pulse ox while on rehab and he had only 1 and 1/2 minutes when O2 sat was 89 or less. There were no desaturation events > 60 sec. Does not need oxygen supplementation at night. (22) Acute delirium: PLAN: due to Levaquin. Resolved with discontinuation of Levaquin. (23) Weight loss, non-intentional: (24) Decubitus ulcer: QUALIFIERS: Pressure injury location: heel Pressure injury stage:stage 1 Laterality: left QualifiedCode(s): L89.621 - Pressure ulcer of left heel, stage 1 PLAN: Plan 1. Continue therapy 2. Hold lisinopril for hypotension 3. Lab ordered for the a.m. 4. Check a UA today Charges/Coding Visit Charges Inpatient E&M: 12207 [facility] Hosp L1 01/15/25 1306 Savanna Kelly DO Cosigner Signature (if applicable): CC: ~ Signed [facility]07-23-2025 Progress note [facility] Medical Records Department [address] [place] [address] Progress Note 01/15/25 1225 MR#: [id number] Acct: [id number] Name: SUNG YAÑEZ Rep #:[id number] : 1940 84 From: Savanna Kelly DO PCP: Dr. Briseida Vergara MD Status:ADM IN Location: [place] [address]1 Subjective Subjective Afebrile VSS - Maintaining appropriate oxygen saturation on RA Oral intake - FOOD has been doing better with food. He refused lunch yesterdaybut ate -50 to 74% ofhis supper and he had 75 to 100% of his breakfast this morning. FLUIDS fluid intake yesterday was 1090 cc. Discussed with nursing - no problems that need addressed. Remains incontinent of urine and stool. Reviewed the THERAPY notes Medication list reviewed. UA yesterday showed 0-5 RBCs and 0-5 WBCs per high-power field. There was no bacteria seen. He had 0-5 hyaline casts. Lab today shows a normal white blood cell count of 7.0 hemoglobin is 13.2 which is down from 15.1 on 01/06/2025. Platelets are within normal limits. Sodium is 134 and the potassium is 4.4. BUN is stable at 28 and the creatinine is 0.73 which is down from 0.96 on 01/10/2025. BUN/creatinine ratio is 38.2 and we continue to encourage him to drink 1400 cc daily but he is not compliant with this. He is c/o a GARCIA today. He did not have a GARCIA yesterday but, he had 1 the day prior. I suspect this isdue to dehydration but, will check a CTB today. Denies chest pain, shortness of breath, palpitations, abdominal pain, nausea/vomiting, calf tenderness. Denies pain in the left arm and the left legtoday. He tells me he has a little pain in his left shoulder. No neck pain andno torticollis Objective Data Objective Data Vital Signs: Vital Signs Temp Pulse Resp BP Pulse Ox O2 Del Method O2 Flow Rate 98.9 F 97 16 93/55 L 96 Room Air 2 01/15/25 06:00 01/15/25 08:11 01/15/25 06:00 01/15/25 06:00 01/15/25 06:00 01/15/25 09:55 01/14/25 20:13 FiO2 94 01/05/25 22:00 Oxygen Flow Rate (L/min) 2 Oxygen Delivery Method Room Air Weight: 191 lb 2.252 oz Body Mass Index (BMI) 23.8 Intake & Output: Intake and Output for Last 24 Hours 01/13/25 01/14/25 01/15/25 23:59 23:59 23:59 Intake Total 910 / 910 1090 / 1090 320 / 320 Output Total 200 / 200 350 / 350 Balance 710 / 710 740 / 740 320 / 320 Lab / Micro Data 01/15/25 05:29 01/15/25 05:29 Labs: Laboratory Results - last 24 hr 01/14/25 16:00: Urine Color Yellow, Urine Clarity Clear, Urine pH 5.0, Ur Specific [place] 1.020, Urine Protein 15 H, Urine Glucose (UA) Normal, Urine Ketones Negative, Urine Occult Blood Negative, Urine Nitrite Negative, Urine Bilirubin Negative, Urine Urobilinogen Normal, Ur Leukocyte Esterase Negative, Urine RBC 0-5 SEEN, Urine WBC 0-5 SEEN, Ur Squamous Epith Cells 0-5 SEEN, Urine Bacteria 0 SEEN, Hyaline Casts 0-5 SEEN, Urine Mucus 0 SEEN 01/15/25 05:29: WBC 7.0, RBC 4.28 L, Hgb 13.2, Hct 39.0 L, MCV 91.1, MCH 30.8, MCHC 33.8, RDW Std Deviation 46.2 H, RDW Coeff of Chastity 13.8, Plt Count 194, MPV 11.7, Sodium 134, Potassium 4.4, Bangoxhc358, Carbon Dioxide 20.7 L, Anion Gap 10, BUN 28 H, Creatinine 0.73, Estim Creat Clear Calc 85.09, Est GFR (MDRD) Non- Af 91, BUN/Creatinine Ratio 38.2 H, Glucose 105 H, Calcium 9.1, Total Bilirubin 0.78, AST 32, ALT 22, Alkaline Phosphatase 144 H, Total Protein 6.1, Albumin 3.1L, Globulin 3.1, Albumin/Globulin Ratio 1.0 Micro: Microbiology 12/31/24 15:00 Urine Catheter - Catheter Urine Culture - Final Enterococcus faecalis 01/01/25 06:58 Stool Stool Occult Blood (AMOS) - Final Occult Blood Positive Physical Exam Const no apparent distress HEENT Mouth: dry mucous membranes Neck General: trachea midline Resp normal respiratory effort and clear to auscultation bilaterally Resp Narrative: good respiratory effort today......lungs CTA, not tachypneic Cardio Cardio Narrative: Irregular irregular rhythm with controlled ventricular response GI normal to inspection, nondistended, normoactive bowel sounds and soft to palpation GI Narrative: No guarding with palpation Extremity no calf tenderness General Extremity: Negative for edema Skin Rashes: no rashes Assessment & Plan Assessment/Plan (1) Debility: (2) Intracerebral bleed due to trauma: QUALIFIERS: Encounter type: subsequent encounter Laterality: unspecified laterality Loss of consciousness presence/duration: without LOC Qualified Code(s): S06.360D - Traumatic hemorrhage of cerebrum, unspecified, without loss of consciousness, subsequent encounter (3) Mild cognitive impairment: (4) Acute left-sided weakness: (5) Paresthesias: (6) Depression: QUALIFIERS: Depression Type: reactive depression Qualified Code(s): F32.9 - Major depressive disorder, single episode, unspecified PLAN: Depression is long standing but, he never sought treatment. Started on Remeron 15 mg at admission to rehab and increased to 22.5 mg on 01/13/25. Would benefit from psychotherapy. (7) Urinary incontinence: QUALIFIERS: Urinary Incontinence type: urinary incontinence without sensory awareness Qualified Code(s): N39.42 - Incontinence without sensory awareness PLAN: Incontinent of urine most of the time. Will not even alert nursing when he has been incontinent. The week prior to DC he had been continent a few timesbut, has been regressing the last 5 -7 days prior to discharge. He denies dysuria and has had no fevers and no leukocytosis. We check a UA prior to DC and it was negative for infection. (8) Fecal incontinence: QUALIFIERS: Fecal incontinence type: unspecified Qualified Code(s): R15.9 - Full incontinence of feces (9) Essential (primary) hypertension: PLAN: Blood pressure was low early in the week of discharge so we have been decreasing the antihypertensives. He is only on Metoprolol at the time of discharged from rehab and this is needed to control the HR with AF. (10) Paroxysmal atrial fibrillation: (11) Chronic anticoagulation: PLAN: Will defer to neurosurgery to determine when he can restart anticoagulation. He is going to follow up with Dr. Padilla. (12) Peripheral neuropathy: QUALIFIERS: Peripheral neuropathy type: polyneuropathy, other Qualified Code(s): G62.89 - Other specified polyneuropathies PLAN: Not c/o pain in the legs at the time of DC. He started to c/o pain in theL arm and the left leg while on rehab and this was attributed to central neuropathic pain related to the intracerebral bleed. He was started on Gabapentin 100 mg BID and this has been effective in relieving that pain. (13) PAD (peripheral artery disease): (14) Heme positive stool: PLAN: HGB is WNL. He has no nausea or abd pain. He was started on a PPI because he was having some N/V early in the admission and he no longer has N/V/heartburn or epigastric pain. (15) Hyponatremia: PLAN: W/U consistent with SIADH. Placed on salt tabs and fluid restriction of 1400 cc's daily. Never even comes close to taking 1400 cc's in 24 H. We have been encouraging him to increase his fluid intake to no avail. 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 twice daily (17) Torticollis, acquired: PLAN: Due to hypertonicity of muscles in the left neck and upper thoracic area. He had a Botox injection from Dr. Aleman and this is improved significantly. Gael longer has torticollis or lateral James. (18) Laterocollis: (19) Acute cystitis with hematuria: PLAN: Present at admission to rehab. Due to Enterococcus faecalis. It was sensitive to Macrobid andhe was taking Macrobid but when he developed a left basilar pneumonia he was transitioned to Levaquin. He developed acute delirium after a few days on intravenous Levaquin and he was transition from Levaquin to Augmentin to finish appropriate course of treatment for left lower lobe pneumonia and cystitis. (20) Hospital-acquired pneumonia: PLAN: Resolved with Levaquin eith transition to Augmentin due to acute deliriumon Levaquin. (21) Sleep apnea: QUALIFIERS: Sleep apnea type: obstructive Qualified Code(s): G47.33 - Obstructive sleep apnea (adult) (pediatric) PLAN: This was diagnosed many years ago and pt has not been compliant with CPAP and does not wear oxygen when sleeping. He had a overnight trending pulse ox while on rehab and he had only 1 and 1/2 minutes when O2 sat was 89 or less. There were no desaturation events > 60 sec. Does not need oxygen supplementation at night. (22) Acute delirium: PLAN: due to Levaquin. Resolved with discontinuation of Levaquin. (23) Weight loss, non-intentional: (24) Decubitus ulcer: QUALIFIERS: Pressure injury location: heel Pressure injury stage:stage 1 Laterality: left QualifiedCode(s): L89.621 - Pressure ulcer of left heel, stage 1 PLAN: Plan 1. Continue therapy 2. Zestril was discontinued yesterday due to low blood pressure. Will continueto monitor blood pressures closely. 3. Encouraged him to drink 1400 cc of fluid daily......... has not been doing this for several days. 4. CTB without contrast today due to recent c/o GARCIA......I suspect this isw due to dehydration rather than ICH. BP is low and BUN/CREAT ratio is very elevated. Poor fluid intake. 5. Discharging to SNF on 01/17/25. Talked with Moise today and updated her on labs. Answered her questions. Charges/Coding Visit Charges Inpatient E&M: 65154 Subs Hosp L1 01/15/25 1257 Savanna Kelly DO Cosigner Signature (if applicable): CC: ~ Signed [facility]07-22-2025 Progress note Author Savanna Kelly [facility] Note Date/Time January 14, 2025 11:4 9am [facility] Medical Records Department [address] [facility] [place] [address] Progress Note 01/13/25 0834 MR#: [id number] Acct: [id number] Name: SUNG YAÑEZ Rep #:[id number] : 1940 84 From: Savanna Kelly DO PCP: Dr. Briseida Vergara MD Status:ADM IN Location: [place] [address] Subjective Subjective Afebrile VSS -resting heart rates are ranging from 89-1 02 over the past 24 hours. Bloodpressure has ranged from 105/62 to 122/68. Maintaining appropriate oxygen saturation on RA Oral intake - FOOD variable FLUIDS - very poor.......has not even been taking 1,000 cc a day and his fluid restriction allows 1400 cc/day. Remains incontinent of stool and urine Discussed with nursing - Refused to eat today because his was not there. Therapists report he is not motivated to work with them and does not really participate or put forth much effort. He keeps his eyes closed, even when he isawake and talking with us. He seems to be regressing rather than improving. Will be going to SNF on Monday. Reviewed the THERAPY notes Medication list reviewed. Denies cephalgia today and also denies lightheadedness. He has no CP and is notc/o CP, SOB or cough. No dysuria.......has been persistently incontinent. No N/V/Abd pain.......just has no appetite he says. Objective Data Objective Data Vital Signs: Vital Signs Temp Pulse Resp BP Pulse Ox O2 Del Method O2 Flow Rate 98.7 F 101 H 16 105/62 96 Nasal Cannula 2 01/13/25 06:00 01/13/25 06:00 01/13/25 06:00 01/13/25 06:00 01/13/25 06:00 01/13/25 06:00 01/13/25 06:00 FiO2 94 01/05/25 22:00 Oxygen Flow Rate (L/min) 2 Oxygen Delivery Method Nasal Cannula Weight: 191 lb 2.252 oz Body Mass Index (BMI) 23.8 Intake & Output: Intake and Output for Last 24 Hours 01/11/25 01/12/25 01/13/25 23:59 23:59 23:59 Intake Total 950 / 950 885 / 885 340 / 340 Output Total 0 / 0 200 / 200 Balance 950 / 950 885 / 885 140 / 140 Lab / Micro Data 01/06/25 12:13 01/10/25 05:44 Micro: Microbiology 12/31/24 15:00 Urine Catheter - Catheter Urine Culture - Final Enterococcus faecalis 01/01/25 06:58 Stool Stool Occult Blood (AMOS) - Final Occult Blood Positive Physical Exam Const Constitutional Narrative: Lying in bed with eyes closed when I entered the room. Opened his eyes when I called his name. Not making good eye contact with me today. closing his eyes when I am talking with him. HEENT Mouth: dry mucous membranes Neck General: trachea midline Resp clear to auscultation bilaterally Cardio Cardio Narrative: Irregular irregular rhythm with controlled ventricular response GI normal to inspection, nondistended, normoactive bowel sounds and soft to palpation GI Narrative: No guarding with palpation Extremity General Extremity: Negative for edema Skin Rashes: no rashes Psych Mood & Affect: depressed Thought Content: No suicidality Assessment & Plan Assessment/Plan (1) Debility: (2) Intracerebral bleed due to trauma: QUALIFIERS: Encounter type: subsequent encounter Laterality: unspecified laterality Loss of consciousness presence/duration: without LOC Qualified Code(s): S06.360D - Traumatic hemorrhage of cerebrum, unspecified, without loss of consciousness, subsequent encounter (3) Mild cognitive impairment: (4) Acute left-sided weakness: (5) Paresthesias: (6) Depression: QUALIFIERS: Depression Type: reactive depression Qualified Code(s): F32.9 - Major depressive disorder, single episode, unspecified (7) Urinary incontinence: QUALIFIERS: Urinary Incontinence type: urinary incontinence without sensory awareness Qualified Code(s): N39.42 - Incontinence without sensory awareness (8) Fecal incontinence: QUALIFIERS: Fecal incontinence type: unspecified Qualified Code(s): R15.9 - Full incontinence of feces (9) Essential (primary) hypertension: (10) Paroxysmal atrial fibrillation: (11) Chronic anticoagulation: (12) Peripheral neuropathy: QUALIFIERS: Peripheral neuropathy type: polyneuropathy, other Qualified Code(s): G62.89 - Other specified polyneuropathies (13) PAD (peripheral artery disease): (14) Heme positive stool: (15) Hyponatremia: (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 Continue therapy 2. Increase Remeron to 22.5 mg nightly 3. CBC and BMP on Monday 4. Will discharge on 01/17/2025 to snf. 5. Encouraged him to increase fluid intake to 1400 cc/day. 6. We had a reality talk today. I related that he has not really had significant improvement in his condition since arriving on rehab. I also discussed that the therapists feel he is not trying very hard and does not initiate any activity/movement. Does not help when they are turning him to the left side, even though he can use his R arm to grab the bedrail and pull to get himself on his side. When he is sitting in a chair he is slumping forward and not maintaining an upright posture. Neck pain is better.......therapy using a soft collar at times to help support his head because he always the head to slump forward toward the chest. Very poor motivation. He is refusing to eat for nursing because his isn't there? He has actually declined over the weekend in my opinion. There is long standing psychologic dysfunction at play here and I think this is impacting his ability to participate with therapy. Until the depression and manipulative behaviors improve I can not see him makingany progress with therapy. He needs to see psychiatry and have counselling.......this is not available on acute rehab but, will be available when he is in snf. Charges/Coding Visit Charges Inpatient E&M: 75104 Subs Hosp L1 01/14/25 1149 <Electronically signed by Savanna Kelly DO> Savanna Kelly DO Cosigner Signature (if applicable): CC: ~ Signed [facility] Work Phone: [phone]) 189-464907-22-2025 Progress note [facility] Medical Records Department [address] [place] [address] Progress Note 01/13/25 0834 MR#: [id number] Acct: [id number] Name: SUNG YAÑEZ Rep #:[id number] : 1940 84 From: Savanna Kelly DO PCP: Dr. Briseida Vergara MD Status:ADM IN Location: [place] [address] Subjective Subjective Afebrile VSS -resting heart rates are ranging from 89-1 02 over the past 24 hours. Bloodpressure has ranged from 105/62 to 122/68. Maintaining appropriate oxygen saturation on RA Oral intake - FOOD variable FLUIDS - very poor.......has not even been taking 1,000 cc a day and his fluid restriction allows 1400 cc/day. Remains incontinent of stool and urine Discussed with nursing - Refused to eat today because his was not there. Therapists report he is not motivated to work with them and does not really participate or put forth much effort. He keeps his eyes closed, even when he isawake and talking with us. He seems to be regressing rather than improving. Will be going to SNF on Monday. Reviewed the THERAPY notes Medication list reviewed. Denies cephalgia today and also denies lightheadedness. He has no CP and is notc/o CP, SOB or cough. No dysuria.......has been persistently incontinent. No N/V/Abd pain.......just has no appetite he says. Objective Data Objective Data Vital Signs: Vital Signs Temp Pulse Resp BP Pulse Ox O2 Del Method O2 Flow Rate 98.7 F 101 H 16 105/62 96 Nasal Cannula 2 01/13/25 06:00 01/13/25 06:00 01/13/25 06:00 01/13/25 06:00 01/13/25 06:00 01/13/25 06:00 01/13/25 06:00 FiO2 94 01/05/25 22:00 Oxygen Flow Rate (L/min) 2 Oxygen Delivery Method Nasal Cannula Weight: 191 lb 2.252 oz Body Mass Index (BMI) 23.8 Intake & Output: Intake and Output for Last 24 Hours 01/11/25 01/12/25 01/13/25 23:59 23:59 23:59 Intake Total 950 / 950 885 / 885 340 / 340 Output Total 0 / 0 200 / 200 Balance 950 / 950 885 / 885 140 / 140 Lab / Micro Data 01/06/25 12:13 01/10/25 05:44 Micro: Microbiology 12/31/24 15:00 Urine Catheter - Catheter Urine Culture - Final Enterococcus faecalis 01/01/25 06:58 Stool Stool Occult Blood (AMOS) - Final Occult Blood Positive Physical Exam Const Constitutional Narrative: Lying in bed with eyes closed when I entered the room. Opened his eyes when I called his name. Not making good eye contact with me today. closing his eyes when I am talking with him. HEENT Mouth: dry mucous membranes Neck General: trachea midline Resp clear to auscultation bilaterally Cardio Cardio Narrative: Irregular irregular rhythm with controlled ventricular response GI normal to inspection, nondistended, normoactive bowel sounds and soft to palpation GI Narrative: No guarding with palpation Extremity General Extremity: Negative for edema Skin Rashes: no rashes Psych Mood & Affect: depressed Thought Content: No suicidality Assessment & Plan Assessment/Plan (1) Debility: (2) Intracerebral bleed due to trauma: QUALIFIERS: Encounter type: subsequent encounter Laterality: unspecified laterality Loss of consciousness presence/duration: without LOC Qualified Code(s): S06.360D - Traumatic hemorrhage of cerebrum, unspecified, without loss of consciousness, subsequent encounter (3) Mild cognitive impairment: (4) Acute left-sided weakness: (5) Paresthesias: (6) Depression: QUALIFIERS: Depression Type: reactive depression Qualified Code(s): F32.9 - Major depressive disorder, single episode, unspecified (7) Urinary incontinence: QUALIFIERS: Urinary Incontinence type: urinary incontinence without sensory awareness Qualified Code(s): N39.42 - Incontinence without sensory awareness (8) Fecal incontinence: QUALIFIERS: Fecal incontinence type: unspecified Qualified Code(s): R15.9 - Full incontinence of feces (9) Essential (primary) hypertension: (10) Paroxysmal atrial fibrillation: (11) Chronic anticoagulation: (12) Peripheral neuropathy: QUALIFIERS: Peripheral neuropathy type: polyneuropathy, other Qualified Code(s): G62.89 - Other specified polyneuropathies (13) PAD (peripheral artery disease): (14) Heme positive stool: (15) Hyponatremia: (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 Continue therapy 2. Increase Remeron to 22.5 mg nightly 3. CBC and BMP on Monday 4. Will discharge on 01/17/2025 to snf. 5. Encouraged him to increase fluid intake to 1400 cc/day. 6. We had a reality talk today. I related that he has not really had significant improvement in hiscondition since arriving on rehab. I also discussed that the therapists feel he is not trying very hard and does not initiate any activity/movement. Does not help when they are turning him to the left side, even though he can use his R arm to grab the bedrail and pull to get himself on his side. When he is sitting in a chair he is slumping forward and not maintaining an upright posture. Neck painis better.......therapy using a soft collar at times to help support his head because he always thehead to slump forward toward the chest. Very poor motivation. He is refusing to eat for nursing because his isn't there? He has actually declined over the weekend in my opinion. There is long standing psychologic dysfunction at play here and I think this is impacting his ability to participatewith therapy. Until the depression and manipulative behaviors improve I can not see him makingany pr ogress with therapy. He needs to see psychiatry and have counselling.......this is not available onacute rehab but, will be available when he is in snf. Charges/Coding Visit Charges Inpatient E&M: 92059 Subs Hosp L1 01/14/25 1149 Savanna Kelly DO Cosigner Signature (if applicable): CC: ~ Signed [facility]07-17-2025 Progress note Author Savanna Kelly [facility] Note Date/Time January 09, 2025 3:35 pm [facility] Medical Records Department [address] [place] [address] Progress Note 01/09/25 0957 MR#: [id number] Acct: [id number] Name: SUNG YAÑZE Rep #:[id number] : 1940 84 From: Savanna Kelly DO PCP: Dr. Briseida Vergara MD Status:ADM IN Location: [place] [address] Subjective Subjective Ton was seen on team rounds today. His Moise was present in the room. All her questions were answered to her satisfaction. Afebrile VSS - Maintaining appropriate oxygen saturation on RA Oral intake - FOOD he ate 75 to 100% of his lunch and supper yesterday and 50 to 74% of his breakfast yesterday morning and today. FLUIDS fair Weight is up approximately 6 pounds since admission to rehab. I suspect this isdue to better hydration and improving appetite. Discussed with nursing - no problems that need addressed. Occasionally continent of urine now. Incontinent of stool yesterday. Reviewed the THERAPY notes - seen by OT for bathing/dressing/grooming this AM. Not much participation on his part. Unable to maintain an upright posture whileseated so not safe for a shower chair. Having trouble with motor planning and not able to roll to the left in bed without assist. Medication list reviewed. He tells me that the has no pain in the Left heel today and denies any pain in the left leg proximal to the ankle. He is c/o pain in the R knee. He denies lightheadedness, chest pain, shortness of breath, cough, nausea/vomiting/abdominal pain, dysuria and calf tenderness. He does have some pain in the left neck and due to the weakness on the left side he is head is frequently rotated to the left. He tells me that he uses Icy Hot at home for pain in the knees. would prefer to use Icy Hot rather than the compounded arthritis cream. Objective Data Objective Data Vital Signs: Vital Signs Temp Pulse Resp BP Pulse Ox O2 Del Method O2 Flow Rate 98.4 F 99 16 106/64 94 Room Air 2 01/09/25 05:51 01/09/25 08:35 01/09/25 09:51 01/09/25 05:51 01/09/25 05:51 01/09/25 09:51 01/09/25 06:16 FiO2 94 01/05/25 22:00 Oxygen Flow Rate (L/min) 2 Oxygen Delivery Method Room Air Weight: 208 lb 5.389 oz Body Mass Index (BMI) 26.0 Intake & Output: Intake and Output for Last 24 Hours 01/07/25 01/08/25 01/09/25 23:59 23:59 23:59 Intake Total 1000 / 1000 1120 / 1120 230 / 230 Output Total Balance 1000 / 1000 1069 / 1069 230 / 230 Lab / Micro Data 01/06/25 12:13 01/06/25 12:13 Micro: Microbiology 12/31/24 15:00 Urine Catheter - Catheter Urine Culture - Final Enterococcus faecalis 01/01/25 06:58 Stool Stool Occult Blood (AMOS) - Final Occult Blood Positive Physical Exam Const alert and oriented x3 Constitutional Narrative: He was in the recliner with his legs elevated in the therapy room. The chair ispartially reclined and he is leaning to the left, unable to maintain an upright posture. His head is on the midline with no cervical rotation Left........but, nursing has seen him with his head turned to the Left frequently. He is pleasant and making good eye contact with me. Talkative. Not motivated to do much for himself when working with therapy. He did wash his perineal area when working with OT today. Eating at supervision/set up. Still total assist for bathing, upper body dressing, lower body dressing, toileting, toilet transfer. Still requiring Jaleel to get him into the for therapy. He completed his oralcare at set-up today.......requires MOD assist for body positioning. General Appearance: cooperative HEENT Mouth: dry mucous membranes Neck Neck Narrative: Restricted cervical rotation R. Lots of spasm in the Left trapezius muscle. Painful to touch and palpate the Left trapezius muscle from the base of the occiput to the left shoulder. Has both torticollis to the left and laterocollisto the left. some local massage was done and although it was painful it did help somewhat. No redness of the skin. No radiation of pain into the arm. General: trachea midline Resp clear to auscultation bilaterally Cardio Cardio Narrative: Irregular irregular rhythm with controlled ventricular response GI normal to inspection, nondistended, normoactive bowel sounds and soft to palpation GI Narrative: No guarding with palpation Extremity Extremity Narrative: No heel pain today. Also no longer c/o pain in the left leg today.....gabapentin low dose was started yesterday. the R knee has a lot of ruthy enlargement and he has stiffness of the R knee when I try to flex the knee. NO erythema and no openings in the skin. No significant increased warmthto touch.. PT was able to get the R knee into flexion to 90 degrees. He uses Icy Hot at home. Has never had a knee XRAY at [facility]. General Extremity: Negative for edema Skin Skin Narrative: Stage I Left heel. Rashes: no rashes Neuro Neuro Narrative: Cervical torticollis and laterocollis to the left. Suspect this is related to the intracerebral bleed..........now getting some hypertonicity in the neck/shoulder. Psych Psych Narrative: More engaged with me when we talk. Eating better and sleeping well at night now. Appearance: appropriate Attitude: No agitated Activity / Motor Behavior: Negative for restless Mood & Affect: depressed Thought Content: No suicidality Assessment & Plan Assessment/Plan (1) Debility: (2) Intracerebral bleed due to trauma: QUALIFIERS: Encounter type: subsequent encounter Laterality: unspecified laterality Loss of consciousness presence/duration: without LOC Qualified Code(s): S06.360D - Traumatic hemorrhage of cerebrum, unspecified, without loss of consciousness, subsequent encounter (3) Mild cognitive impairment: (4) Acute left-sided weakness: (5) Paresthesias: (6) Depression: QUALIFIERS: Depression Type: reactive depression Qualified Code(s): F32.9 - Major depressive disorder, single episode, unspecified (7) Urinary incontinence: QUALIFIERS: Urinary Incontinence type: urinary incontinence without sensory awareness Qualified Code(s): N39.42 - Incontinence without sensory awareness (8) Fecal incontinence: QUALIFIERS: Fecal incontinence type: unspecified Qualified Code(s): R15.9 - Full incontinence of feces (9) Essential (primary) hypertension: (10) Paroxysmal atrial fibrillation: (11) Chronic anticoagulation: PLAN: On hold due to intracerebral bleed (12) Peripheral neuropathy: QUALIFIERS: Peripheral neuropathy type: polyneuropathy, other Qualified Code(s): G62.89 - Other specified polyneuropathies (13) PAD (peripheral artery disease): (14) Heme positive stool: (15) Hyponatremia: PLAN: 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 On fluid restriction and salt tabs. 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 Continue therapy 2. He has had 7 doses of Remeron and he is tolerating well with no adverse sideeffects. Sleeping will at night now and appetite is picking up. Consider increasing to 22.5 mg in a few days if he continues to tolerate. 3. Will ask pain management if they can do a Botox injection for the torticollis. He is finally awake during the day and able to participate somewhatin therapy. I do not want to start adding muscle relaxers or Klonopin which would increase sedation. Will try TENS unit.....PT is checking on the availability of the hospital unit. Also try therapeutic massage and ICY Hot. If this is not effective consider a lidocaine patch. Will work on ROM in the neck. 4. Lab has been ordered for the morning. Family has been apparently giving himexcess fluids and will need to reinforce with them why natalie is on fluid restriction. I explained this to Ton today. He is c/o a dry mouth. Will prescribe Biotene PRN 5. Moise is going to come in for therapy sessions next week to see if he will participate better with therapy. 01/09/254 <Electronically signed by Savanna Kelly DO> Savanna Kelly DO Cosigner Signature (if applicable): CC: ~ Signed ADDENDUM by Dr. Savanna Kelly DO on 01/09/25 at 1535 Visit Charges Inpatient E&M: 21551 Subs Hosp L2 01/09/251534 <Electronically signed by Savanna escalante DO> Date _ Savanna Kelly DO Cosigner Signature (if applicable): Date cc: ~* Signed [facility] Work Phone: [phone] Progress note [facility] Medical Records Department [address] [place] [address] Progress Note 01/09/25 0957 MR#: [id number] Acct: [id number] Name: SUNG YAÑEZ Rep #:[id number] : 1940 84 From: Savanna Kelly DO PCP: Dr. Briseida Vergara MD Status:ADM IN Location: [place] [address]1 Subjective Subjective Ton was seen on team rounds today. His Moise was present in the room. All her questions were answered to her satisfaction. Afebrile VSS - Maintaining appropriate oxygen saturation on RA Oral intake - FOOD he ate 75 to 100% of his lunch and supper yesterday and 50 to 74% of his breakfast yesterday morning and today. FLUIDS fair Weight is up approximately 6 pounds since admission to rehab. I suspect this isdue to better hydration and improving appetite. Discussed with nursing - no problems that need addressed. Occasionally continent of urine now. Incontinent of stool yesterday. Reviewed the THERAPY notes - seen by OT for bathing/dressing/grooming this AM. Not much participation on his part. Unable to maintain an upright posture whileseated so not safe for a shower chair. Having trouble with motor planning and not able to roll to the left in bed without assist. Medication list reviewed. He tells me that the has no pain in the Left heel today and denies any pain in the left leg proximal to the ankle. He is c/o pain in the R knee. He denies lightheadedness, chest pain, shortness of breath, cough, nausea/vomiting/abdominal pain, dysuria and calf tenderness. He does have some pain in the left neck and due to the weakness on the left side he is head is frequently rotated to the left.He tells me that he uses Icy Hot at home for pain in the knees. would prefer to use Icy Hot rather than the compounded arthritis cream. Objective Data Objective Data Vital Signs: Vital Signs Temp Pulse Resp BP Pulse Ox O2 Del Method O2 Flow Rate 98.4 F 99 16 106/64 94 Room Air 2 01/09/25 05:51 01/09/25 08:35 01/09/25 09:51 01/09/25 05:51 01/09/25 05:51 01/09/25 09:51 01/09/25 06:16 FiO2 94 01/05/25 22:00 Oxygen Flow Rate (L/min) 2 Oxygen Delivery Method Room Air Weight: 208 lb 5.389 oz Body Mass Index (BMI) 26.0 Intake & Output: Intake and Output for Last 24 Hours 01/07/25 01/08/25 01/09/25 23:59 23:59 23:59 Intake Total 1000 / 1000 1120 / 1120 230 / 230 Output Total 51 / 51 Balance 1000 / 1000 1069 / 1069 230 / 230 Lab / Micro Data 01/06/25 12:13 01/06/25 12:13 Micro: Microbiology 12/31/24 15:00 Urine Catheter - Catheter Urine Culture - Final Enterococcus faecalis 01/01/25 06:58 Stool Stool Occult Blood (AMOS) - Final Occult Blood Positive Physical Exam Const alert and oriented x3 Constitutional Narrative: He was in the recliner with his legs elevated in the therapy room. The chair ispartially reclined and he is leaning to the left, unable to maintain an upright posture. His head is on the midline withno cervical rotation Left........but, nursing has seen him with his head turned to the Left frequent ly. He is pleasant and making good eye contact with me. Talkative. Not motivated to do much for himself when working with therapy. He did wash his perineal area when working with OT today. Eating at supervision/set up. Still total assist for bathing, upper body dressing, lower body dressing, toileting, toilet transfer. Still requiring Jaleel to get him into the for therapy. He completed his oral care at set-up today.......requires MOD assist for body positioning. General Appearance: cooperative HEENT Mouth: dry mucous membranes Neck Neck Narrative: Restricted cervical rotation R. Lots of spasm in the Left trapezius muscle. Painful to touch and palpate the Left trapezius muscle from the base of the occiput to the left shoulder. Has both torticollis to the left and laterocollisto the left. some local massage was done and although it was painful it did help somewhat. No redness of the skin. No radiation of pain into the arm. General: trachea midline Resp clear to auscultation bilaterally Cardio Cardio Narrative: Irregular irregular rhythm with controlled ventricular response GI normal to inspection, nondistended, normoactive bowel sounds and soft to palpation GI Narrative: No guarding with palpation Extremity Extremity Narrative: No heel pain today. Also no longer c/o pain in the left leg today.....gabapentin low dose was started yesterday. the R knee has a lot of ruthy enlargement and he has stiffness of the R knee when I try to flex the knee. NO erythema and no openings in the skin. No significant increased warmthto touch.. PT was able to get the R knee into flexion to 90 degrees. He uses Icy Hot at home. Has never had a knee XRAY at [facility]. General Extremity: Negative for edema Skin Skin Narrative: Stage I Left heel. Rashes: no rashes Neuro Neuro Narrative: Cervical torticollis and laterocollis to the left. Suspect this is related to the intracerebral bleed..........now getting some hypertonicity in the neck/shoulder. Psych Psych Narrative: More engaged with me when we talk. Eating better and sleeping well at night now. Appearance: appropriate Attitude: No agitated Activity / Motor Behavior: Negative for restless Mood & Affect: depressed Thought Content: No suicidality Assessment & Plan Assessment/Plan (1) Debility: (2) Intracerebral bleed due to trauma: QUALIFIERS: Encounter type: subsequent encounter Laterality: unspecified laterality Loss of consciousness presence/duration: without LOC Qualified Code(s): S06.360D - Traumatic hemorrhage of cerebrum, unspecified, without loss of consciousness, subsequent encounter (3) Mild cognitive impairment: (4) Acute left-sided weakness: (5) Paresthesias: (6) Depression: QUALIFIERS: Depression Type: reactive depression Qualified Code(s): F32.9 - Major depressive disorder, single episode, unspecified (7) Urinary incontinence: QUALIFIERS: Urinary Incontinence type: urinary incontinence without sensory awareness Qualified Code(s): N39.42 - Incontinence without sensory awareness (8) Fecal incontinence: QUALIFIERS: Fecal incontinence type: unspecified Qualified Code(s): R15.9 - Full incontinence of feces (9) Essential (primary) hypertension: (10) Paroxysmal atrial fibrillation: (11) Chronic anticoagulation: PLAN: On hold due to intracerebral bleed (12) Peripheral neuropathy: QUALIFIERS: Peripheral neuropathy type: polyneuropathy, other Qualified Code(s): G62.89 - Other specified polyneuropathies (13) PAD (peripheral artery disease): (14) Heme positive stool: (15) Hyponatremia: PLAN: 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 On fluid restriction and salt tabs. 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 Continue therapy 2. He has had 7 doses of Remeron and he is tolerating well with no adverse sideeffects. Sleeping will at night now and appetite is picking up. Consider increasing to 22.5 mg in a few days if he continues to tolerate. 3. Will ask pain management if they can do a Botox injection for the torticollis. He is finally awake during the day and able to participate somewhatin therapy. I do not want to start adding muscle relaxers or Klonopin which would increase sedation. Will try TENS unit.....PT is checking on the availability of the hospital unit. Also try therapeutic massage and ICY Hot. If this is not effective consider a lidocaine patch. Will work on ROM in the neck. 4. Lab has been ordered for the morning. Family has been apparently giving himexcess fluids and will need to reinforce with them why natalie is on fluid restriction. I explained this to Ton today. He is c/o a dry mouth. Will prescribe Biotene PRN 5. Moise is going to come in for therapy sessions next week to see if he will participate better withtherapy. 01/09/25 5194 Savanna Kelly DO Cosigner Signature (if applicable): CC: ~ Signed ADDENDUM by Dr. Savanna Kelly, on 01/09/25 at 1535 Visit Charges Inpatient E&M: 85361 Subs Hosp L2 01/09/25 1535 ti DO> Date _ Savanna Kelly Yancy DO Trotter Signature (if applicable): Date cc: ~* Signed [facility]07-16-2025 Progress note Author Savanna Kelly [facility] Note Date/Time January 08, 2025 10:1 9am [facility] Medical Records Department [address] [place] [address] Progress Note 01/08/25 0947 MR#: [id number] Acct: [id number] Name: SUNG YAÑEZ Rep #:[id number] : 1940 84 From: Savanna Kelly DO PCP: Dr. Briseida Vergara MD Status:ADM IN Location: [place] [address] Subjective Subjective Afebrile Vital signs stable Maintaining appropriate oxygen saturation on room air while awake. Wearing oxygen while sleeping. Was able to tell nursing this AM he had to urinate......has been incontinent with no sensation prior. Intermittent fecal incontinence. He is sleeping well at night. Has been talking more and interacting with staff. Admitted to me today that he thinks he has had depression for a long time. Hasissues with family (mentioned his mother) that go way back. He has a full sister and a half sister and the had sister has no knowledge of the older sister.......wonders why his mother never told her. He did not expand on this but, he did tell me that he feels guilty about this. We talked about psychotherapy going forward and he seemed open to this. He is OK with being on an antidepressant. At times he has thought about putting his clothes and thingsin the car and just leaving. Has never had psychotherapy. Has not been on an antidepressant until he presented to rehab. He tells me that his marketing team lead is going to come in today and visit and also a good friend who knows more about his family. He is c/o pain in the Left heel and also some pain in the left knee and thigh. 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 I think the pain in the Left knee and thigh is central in origin. He has some flex of the fingers on the left hand now and oneof the night nurses saw movement of the left foot after she finished massaging the foot. Denies lightheadedness, chest pain, cough, shortness of breath, palpitations, nausea/vomiting/abdominal pain. Ate 50 to 74% of his breakfast this morning. Remembers I told him yesterday that he has to eat if he is going to be able to maintain the strength he currently has and actually get better. He is trying. Objective Data Objective Data Vital Signs: Vital Signs Temp Pulse Resp BP Pulse Ox O2 Del Method O2 Flow Rate 97.6 F L 90 16 110/72 95 Nasal Cannula 2 01/08/25 06:00 01/08/25 08:29 01/08/25 06:00 01/08/25 06:00 01/08/25 06:00 01/08/25 06:00 01/08/25 06:00 FiO2 94 01/05/25 22:00 Oxygen Flow Rate (L/min) 2 Oxygen Delivery Method Nasal Cannula Weight: 208 lb 5.389 oz Body Mass Index (BMI) 26.0 Intake & Output: Intake and Output for Last 24 Hours 01/06/25 01/07/25 01/08/25 23:59 23:59 23:59 Intake Total 565 / 565 1000 / 1000 80 / 80 Output Total Balance 565 / 565 1000 / 1000 79 / 79 Lab / Micro Data 01/06/25 12:13 01/06/25 12:13 Micro: Microbiology 12/31/24 15:00 Urine Catheter - Catheter Urine Culture - Final Enterococcus faecalis 01/01/25 06:58 Stool Stool Occult Blood (AMOS) - Final Occult Blood Positive Physical Exam Const alert and oriented x3 Constitutional Narrative: When I entered his room he was watching TV and very alert. He was talkative today and is starting to reveal some of the things that have been bothering him for a long time. Much more interactive with staff in the past 24-48H. Resp clear to auscultation bilaterally Cardio Cardio Narrative: Irregular irregular rhythm with controlled ventricular response GI normal to inspection, nondistended, normoactive bowel sounds and soft to palpation GI Narrative: No guarding with palpation Extremity Extremity Narrative: The Left heel is reddened and mushy to palpation. No opening in the skin. Did not c/o pain with palpation........the pain may actually be central in origin. General Extremity: Negative for edema Neuro Neuro Narrative: some movement of the fingers of the left hand today and moved the Left foot today for nursing. Psych Psych Narrative: Still with depressed affect but, he is alert now during the day and he is talking a lot more. Worried that I am going to give up on him. I reassured himwe are not giving up on him and that he is making progress......it is just not as fast as he would like it to be. We talked about central neuropathic pain andthat new pain in the left side is actually a good sign that we have some nerve viability. He is much more talkative now and he is interacting and opening up with staff. Sleeping well at night. recognizing now that he has to eat if he is going to be able to have the strength to fo therapy and progress. Made an effort at Breakfast today and ate 50-74% of his meal. The automotive parts interpreter has added 2chocolate supplements daily with lunch and supper. Appearance: appropriate Attitude: No agitated Activity / Motor Behavior: Negative for restless Thought Content: No suicidality Assessment & Plan Assessment/Plan (1) Debility: (2) Intracerebral bleed due to trauma: QUALIFIERS: Encounter type: subsequent encounter Laterality: unspecified laterality Loss of consciousness presence/duration: without LOC Qualified Code(s): S06.360D - Traumatic hemorrhage of cerebrum, unspecified, without loss of consciousness, subsequent encounter (3) Mild cognitive impairment: (4) Acute left-sided weakness: (5) Paresthesias: (6) Depression: QUALIFIERS: Depression Type: reactive depression Qualified Code(s): F32.9 - Major depressive disorder, single episode, unspecified (7) Urinary incontinence: QUALIFIERS: Urinary Incontinence type: urinary incontinence without sensory awareness Qualified Code(s): N39.42 - Incontinence without sensory awareness PLAN: is now starting to sense when he has to urinate. 01/08. 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 On fluid restriction and salt tabs. 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 Continue therapy 2. Making progress. Continue Remeron 15 mg at HS 3. Add Gabapentin 100 mg BID for suspected central neuropathic pain. 4. Repeat a BMP Monday a.m. Charges/Coding Visit Charges Inpatient E&M: 87406 Subs Hosp L1 01/08/25 1019 <Electronically signed by Savanna Kelly DO> Savanna Kelly DO Cosigner Signature (if applicable): CC: ~ Signed [facility] Work Phone: [phone] Progress note [facility] Medical Records Department [address] [place] [address] Progress Note 01/08/25 0947 MR#: [id number] Acct: [id number] Name: SUNG YAÑEZ Rep #:[id number] : 1940 84 From: Savanna Kelly DO PCP: Dr. Briseida Vergara MD Status:ADM IN Location: [place] [address] Subjective Subjective Afebrile Vital signs stable Maintaining appropriate oxygen saturation on room air while awake. Wearing oxygen while sleeping. Was able to tell nursing this AM he had to urinate......has been incontinent with no sensation prior. Intermittent fecal incontinence. He is sleeping well at night. Has been talking more and interacting with staff. Admitted to me today that he thinks he has had depression for a long time. Hasissues with family (mentioned his mother)that go way back. He has a full sister and a half sister and the had sister has no knowledge of theolder sister.......wonders why his mother never told her. He did not expand on this but, he did tell me that he feels guilty about this. We talked about psychotherapy going forward and he seemed opento this. He is OK with being on an antidepressant. At times he has thought about putting his clothes and thingsin the car and just leaving. Has never had psychotherapy. Has not been on an antidepressant until he presented to rehab. He tells me that his marketing team lead is going to come in today and visit reymundoo a good friend who knows more about his family. He is c/o pain in the Left heel and also some pain in the left knee and thigh. 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 I think the pain in the Left knee andthigh is central in origin. He has some flex of the fingers on the left hand now and oneof the night nurses saw movement of the left foot after she finished massaging the foot. Denies lightheadedness, chest pain, cough, shortness of breath, palpitations, nausea/vomiting/abdominal pain. Ate 50 to 74% of his breakfast this morning. Remembers I told him yesterday that he has to eat if he is going juliet able to maintain the strength he currently has and actually get better. He is trying. Objective Data Objective Data Vital Signs: Vital Signs Temp Pulse Resp BP Pulse Ox O2 Del Method O2 Flow Rate 97.6 F L 90 16 110/72 95 Nasal Cannula 2 01/08/25 06:00 01/08/25 08:29 01/08/25 06:00 01/08/25 06:00 01/08/25 06:00 01/08/25 06:00 01/08/25 06:00 FiO2 94 01/05/25 22:00 Oxygen Flow Rate (L/min) 2 Oxygen Delivery Method Nasal Cannula Weight: 208 lb 5.389 oz Body Mass Index (BMI) 26.0 Intake & Output: Intake and Output for Last 24 Hours 01/06/25 01/07/25 01/08/25 23:59 23:59 23:59 Intake Total 565 / 565 1000 / 1000 80 / 80 Output Total Balance 565 / 565 1000 / 1000 79 / 79 Lab / Micro Data 01/06/25 12:13 01/06/25 12:13 Micro: Microbiology 12/31/24 15:00 Urine Catheter - Catheter Urine Culture - Final Enterococcus faecalis 01/01/25 06:58 Stool Stool Occult Blood (AMOS) - Final Occult Blood Positive Physical Exam Const alert and oriented x3 Constitutional Narrative: When I entered his room he was watching TV and very alert. He was talkative today and is starting to reveal some of the things that have been bothering him for a long time. Much more interactive withstaff in the past 24-48H. Resp clear to auscultation bilaterally Cardio Cardio Narrative: Irregular irregular rhythm with controlled ventricular response GI normal to inspection, nondistended, normoactive bowel sounds and soft to palpation GI Narrative: No guarding with palpation Extremity Extremity Narrative: The Left heel is reddened and mushy to palpation. No opening in the skin. Did not c/o pain with palpation........the pain may actually be central in origin. General Extremity: Negative for edema Neuro Neuro Narrative: some movement of the fingers of the left hand today and moved the Left foot today for nursing. Psych Psych Narrative: Still with depressed affect but, he is alert now during the day and he is talking a lot more. Worried that I am going to give up on him. I reassured himwe are not giving up on him and that he is making progress......it is just not as fast as he would like it to be. We talked about central neuropathic pain andthat new pain in the left side is actually a good sign that we have some nerve viability.He is much more talkative now and he is interacting and opening up with staff. Sleeping well at night. recognizing now that he has to eat if he is going to be able to have the strength to fo therapy and progress. Made an effort at Breakfast today and ate 50-74% of his meal. The automotive parts interpreter has added 2 chocolate supplements daily with lunch and supper. Appearance: appropriate Attitude: No agitated Activity / Motor Behavior: Negative for restless Thought Content: No suicidality Assessment & Plan Assessment/Plan (1) Debility: (2) Intracerebral bleed due to trauma: QUALIFIERS: Encounter type: subsequent encounter Laterality: unspecified laterality Loss of consciousness presence/duration: without LOC Qualified Code(s): S06.360D - Traumatic hemorrhage of cerebrum, unspecified, without loss of consciousness, subsequent encounter (3) Mild cognitive impairment: (4) Acute left-sided weakness: (5) Paresthesias: (6) Depression: QUALIFIERS: Depression Type: reactive depression Qualified Code(s): F32.9 - Major depressive disorder, single episode, unspecified (7) Urinary incontinence: QUALIFIERS: Urinary Incontinence type: urinary incontinence without sensory awareness Qualified Code(s): N39.42 - Incontinence without sensory awareness PLAN: is now starting to sense when he has to urinate. 01/08. 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 On fluid restriction and salt tabs. 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 Continue therapy 2. Making progress. Continue Remeron 15 mg at HS 3. Add Gabapentin 100 mg BID for suspected central neuropathic pain. 4. Repeat a BMP Monday a.m. Charges/Coding Visit Charges Inpatient E&M: 08952 Subs Hosp L1 01/08/25 1019 Savanna Kelly DO Cosigner Signature (if applicable): CC: ~ Signed [facility]07-15-2025 Progress note Author Savanna Kelly [facility] Note Date/Time January 07, 2025 1:42 pm [facility] Medical Records Department [address] [place] [address] Progress Note 01/07/25 1210 MR#: [id number] Acct: [id number] Name: OTILIOSUNGWICHO JASMINE Rep #:[id number] : 1940 84 From: Savanna Kelly PCP: Dr. Briseida Vergara MD Status:ADM [facility] Subjective Subjective Afebrile VSS -blood pressure over the past 24 hours has ranged from 123/ 74-1 36/90 at suppertime yesterday. The heart rate is ranged from 87-100. Maintaining appropriate oxygen saturation on RA Oral intake - FOOD very erratic..... Often poor. Did not refuse any meals yesterday. FLUIDS only 565 cc orally were recorded yesterday. Discussed with nursing - no problems that need addressed. Incontinent of urine and stool. Reviewed the THERAPY notes Medication list reviewed. Taking 1-2 oxycodone 5 mg tablets daily for complaintof back/buttocks pain. No longer complaining about pain in his feet. Tells me that he is not eating because he is not hungry and he does not like thefood. He wants his to bring in [employer] bars for him to it. He denies nausea/vomiting/abdominal pain....... he just does not like the food and he doesnot feel hungry. He denies lightheadedness, chest pain, shortness of breath, cough, palpitations, dysuria and calf pain. He complains his butt hurts. Not able to do 3 hours of therapy daily. He is more alert now than at admission. We were not able to keep him awake at admission to even talk.......kept nodding off. He is sleeping well at night now. Has had 5 dosesof Remeron. UTI and PNA have been treated. Objective Data Objective Data Vital Signs: Vital Signs Temp Pulse Resp BP Pulse Ox O2 Del Method O2 Flow Rate 97.6 F L 95 16 123/74 H 94 Room Air 2 01/07/25 05:53 01/07/25 08:41 01/07/25 05:53 01/07/25 05:53 01/07/25 05:53 01/07/25 10:00 01/07/25 08:02 FiO2 94 01/05/25 22:00 Oxygen Flow Rate (L/min) 2 Oxygen Delivery Method Room Air Weight: 208 lb 5.389 oz Body Mass Index (BMI) 26.0 Intake & Output: Intake and Output for Last 24 Hours 01/05/25 01/06/25 01/07/25 23:59 23:59 23:59 Intake Total 1440 / 1440 565 / 565 Balance 1440 / 1440 565 / 565 Lab / Micro Data 01/06/25 12:13 01/06/25 12:13 Labs: Laboratory Results - last 24 hr 01/06/25 12:13: WBC 8.3, RBC 4.81, Hgb 15.1, Hct 42.7, MCV 88.8, MCH 31.4, MCHC 35.4 D, RDW Std Deviation 45.1 H, RDW Coeff of Chastity 13.9, Plt Count 240, MPV 11.5, Immature Gran % (Auto) 0.700, Neut % (Auto) 65.8, Lymph % (Auto) 10.0 L, Falls % (Auto) 14.2 H, Eos % (Auto) 8.7 H, Baso % (Auto) 0.6, Absolute Neuts (auto) 5.4, Absolute Lymphs (auto) 0.83, Nucleated RBC % 0, Sodium 130 L, Potassium 4.4, Chloride 98, Carbon Dioxide 20.5 L, Anion Gap 11, BUN 28 H, Creatinine 0.90, Estim Creat Clear Calc 75.63, Est GFR (MDRD) Non-Af 85, BUN/Creatinine Ratio 31.4 H, Glucose 115 H, Calcium 9.1, TSH 1.520 Micro: Microbiology 12/31/24 15:00 Urine Catheter - Catheter Urine Culture - Final Enterococcus faecalis 01/01/25 06:58 Stool Stool Occult Blood (AMOS) - Final Occult Blood Positive Physical Exam Const alert Constitutional Narrative: Was able to converse with me today. Therapists tell me that he is not hallucinating today and has been appropriate with them. Wants to get better but, motivation to do the4 things necessary to get better is lacking. HEENT Mouth: dry mucous membranes Resp Resp Narrative: Lying nearly flat in the recliner with no SOB. Not tachypneic. Breathing is not labored. Able to take deep breaths when asked to do so. Not coughing with deep breathing. Lungs are CTA anterior and lateral. Cardio no rub and no gallops Cardio Narrative: Rhythm is regular today. Denies chest pain. No ectopy. Previously has been inatrial fibrillation every time I have listened to him. GI normal to inspection, nondistended, normoactive bowel sounds, soft to palpation and non-tender GI Narrative: The abdomen is soft and he has no guarding with palpation. Denies nausea. No epigastric pain with palpation. He received milk of magnesia on Monday and a Dulcolax suppository yesterday a.m. and yesterday had 3 bowel movements later inthe day. He has had 1 bowel movement today. He refused stool softeners yesterday a.m. Stool softeners were held last night due to loose stool and the patient refused stool softeners this morning. Extremity no calf tenderness General Extremity: Negative for edema Skin Rashes: no rashes Assessment & Plan Assessment/Plan (1) Debility: (2) Intracerebral bleed due to trauma: QUALIFIERS: Encounter type: subsequent encounter Laterality: unspecified laterality Loss of consciousness presence/duration: without LOC Qualified Code(s): S06.360D - Traumatic hemorrhage of cerebrum, unspecified, without loss of consciousness, subsequent encounter (3) Mild cognitive impairment: (4) Acute left-sided weakness: (5) Paresthesias: (6) Depression: QUALIFIERS: Depression Type: reactive depression Qualified Code(s): F32.9 - Major depressive disorder, single episode, unspecified (7) Urinary incontinence: QUALIFIERS: Urinary Incontinence type: urinary incontinence without sensory awareness Qualified Code(s): N39.42 - Incontinence without sensory awareness (8) Fecal incontinence: QUALIFIERS: Fecal incontinence type: unspecified Qualified Code(s): R15.9 - Full incontinence of feces (9) Essential (primary) hypertension: (10) Paroxysmal atrial fibrillation: (11) Chronic anticoagulation: (12) Peripheral neuropathy: QUALIFIERS: Peripheral neuropathy type: polyneuropathy, other Qualified Code(s): G62.89 - Other specified polyneuropathies (13) PAD (peripheral artery disease): (14) Heme positive stool: (15) Hyponatremia: PLAN: 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 On fluid restriction and salt tabs. (16) Acute delirium: PLAN: Secondary to Levaquin. Has resolved with discontinuation of Levaquin. (17) Hospital-acquired pneumonia: PLAN: Left lower lobe. PLAN: Plan 1. Continue therapy 2. I spoke with the dietitian and will add chocolate protein shakes to hold boost nutrition. 3. Continue Remeron at 15 mg Q HS 4. BP is well controlled and the HR is also controlled. 5. Recheck a BMP I spoke with Moise on the phone. She is very frustrated that he is not able to do 3 hours of therapy and that he is not progressing. I pointed out that he is now awake and alert during the day and able to participate in therapy, even though he is not able to do 3 hours. The UTI and PNA have been treated. Hallucination/confusion resolved with discontinuation of Levaquin. He is tolerating Augmentin without adverse side effect. His BP and HR are now controlled. He is no longer nauseated and at least ate something for each meal yesterday. I told me that in my opinion he will not progress to the point where he will be able to go home in the amount of time we have been given for him to be on rehab. He most likely will go to SNF. Charges/Coding Visit Charges Inpatient E&M: 43229 Subs Hosp L1 01/07/25 1342 <Electronically signed by Savanna Kelly DO> Savanna Kelly DO Cosigner Signature (if applicable): CC: ~ Signed [facility] Work Phone: [phone]) 776-461407-15-2025 Progress note [facility] Medical Records Department [address] [place] [address] Progress Note 01/07/25 1210 MR#: [id number] Acct: [id number] Name: SUNG YAÑEZ Rep #:[id number] : 1940 84 From: Savanna Kelly DO PCP: Dr. Briseida Vergara MD Status:ADM IN Location: [place] [address] Subjective Subjective Afebrile VSS -blood pressure over the past 24 hours has ranged from 123/ 74-1 36/90 at suppertime yesterday.The heart rate is ranged from 87-100. Maintaining appropriate oxygen saturation on RA Oral intake - FOOD very erratic..... Often poor. Did not refuse any meals yesterday. FLUIDS only 565 cc orally were recorded yesterday. Discussed with nursing - no problems that need addressed. Incontinent of urine and stool. Reviewed the THERAPY notes Medication list reviewed. Taking 1-2 oxycodone 5 mg tablets daily for complaintof back/buttocks pain. No longer complaining about pain in his feet. Tells me that he is not eating because he is not hungry and he does not like thefood. He wants his to bring in [employer] bars for him to it. He denies nausea/vomiting/abdominal pain....... he just does not like the food and he doesnot feel hungry. He denies lightheadedness, chest pain, shortness of breath, cough, palpitations, dysuria and calf pain. He complains his butt hurts. Not able to do 3 hours of therapy daily. He is more alert now than at admission. We were not able to keep him awake at admission to even talk.......kept nodding off. He is sleeping well at night now.Has had 5 dosesof Remeron. UTI and PNA have been treated. Objective Data Objective Data Vital Signs: Vital Signs Temp Pulse Resp BP Pulse Ox O2 Del Method O2 Flow Rate 97.6 F L 95 16 123/74 H 94 Room Air 2 01/07/25 05:53 01/07/25 08:41 01/07/25 05:53 01/07/25 05:53 01/07/25 05:53 01/07/25 10:00 01/07/25 08:02 FiO2 94 01/05/25 22:00 Oxygen Flow Rate (L/min) 2 Oxygen Delivery Method Room Air Weight: 208 lb 5.389 oz Body Mass Index (BMI) 26.0 Intake & Output: Intake and Output for Last 24 Hours 01/05/25 01/06/25 01/07/25 23:59 23:59 23:59 Intake Total 1440 / 1440 565 / 565 Balance 1440 / 1440 565 / 565 Lab / Micro Data 01/06/25 12:13 01/06/25 12:13 Labs: Laboratory Results - last 24 hr 01/06/25 12:13: WBC 8.3, RBC 4.81, Hgb 15.1, Hct 42.7, MCV 88.8, MCH 31.4, MCHC 35.4 D, RDW Std Deviation 45.1 H, RDW Coeff of Chastity 13.9, Plt Count 240, MPV 11.5, Immature Gran % (Auto) 0.700, Neut % (Auto) 65.8, Lymph % (Auto) 10.0 L, Falls % (Auto) 14.2 H, Eos % (Auto) 8.7 H, Baso % (Auto) 0.6, Absolute Neuts (auto) 5.4, Absolute Lymphs (auto) 0.83, Nucleated RBC % 0, Sodium 130 L, Potassium 4.4,Chloride 98, Carbon Dioxide 20.5 L, Anion Gap 11, BUN 28 H, Creatinine 0.90, Estim Creat Clear Calc75.63, Est GFR (MDRD) Non-Af 85, BUN/Creatinine Ratio 31.4 H, Glucose 115 H, Calcium 9.1, TSH 1.520 Micro: Microbiology 12/31/24 15:00 Urine Catheter - Catheter Urine Culture - Final Enterococcus faecalis 01/01/25 06:58 Stool Stool Occult Blood (AMOS) - Final Occult Blood Positive Physical Exam Const alert Constitutional Narrative: Was able to converse with me today. Therapists tell me that he is not hallucinating today and has been appropriate with them. Wants to get better but, motivation to do the4 things necessary to get better is lacking. HEENT Mouth: dry mucous membranes Resp Resp Narrative: Lying nearly flat in the recliner with no SOB. Not tachypneic. Breathing is not labored. Able to take deep breaths when asked to do so. Not coughing with deep breathing. Lungs are CTA anterior and lateral. Cardio no rub and no gallops Cardio Narrative: Rhythm is regular today. Denies chest pain. No ectopy. Previously has been inatrial fibrillation every time I have listened to him. GI normal to inspection, nondistended, normoactive bowel sounds, soft to palpation and non-tender GI Narrative: The abdomen is soft and he has no guarding with palpation. Denies nausea. No epigastric pain with palpation. He received milk of magnesia on Monday and a Dulcolax suppository yesterday a.m. and yesterday had 3 bowel movements later inthe day. He has had 1 bowel movement today. He refused stool softeners yesterday a.m. Stool softeners were held last night due to loose stool and the patient refusedstool softeners this morning. Extremity no calf tenderness General Extremity: Negative for edema Skin Rashes: no rashes Assessment & Plan Assessment/Plan (1) Debility: (2) Intracerebral bleed due to trauma: QUALIFIERS: Encounter type: subsequent encounter Laterality: unspecified laterality Loss of consciousness presence/duration: without LOC Qualified Code(s): S06.360D - Traumatic hemorrhage of cerebrum, unspecified, without loss of consciousness, subsequent encounter (3) Mild cognitive impairment: (4) Acute left-sided weakness: (5) Paresthesias: (6) Depression: QUALIFIERS: Depression Type: reactive depression Qualified Code(s): F32.9 - Major depressive disorder, single episode, unspecified (7) Urinary incontinence: QUALIFIERS: Urinary Incontinence type: urinary incontinence without sensory awareness Qualified Code(s): N39.42 - Incontinence without sensory awareness (8) Fecal incontinence: QUALIFIERS: Fecal incontinence type: unspecified Qualified Code(s): R15.9 - Full incontinence of feces (9) Essential (primary) hypertension: (10) Paroxysmal atrial fibrillation: (11) Chronic anticoagulation: (12) Peripheral neuropathy: QUALIFIERS: Peripheral neuropathy type: polyneuropathy, other Qualified Code(s): G62.89 - Other specified polyneuropathies (13) PAD (peripheral artery disease): (14) Heme positive stool: (15) Hyponatremia: PLAN: 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 On fluid restriction and salt tabs. (16) Acute delirium: PLAN: Secondary to Levaquin. Has resolved with discontinuation of Levaquin. (17) Hospital-acquired pneumonia: PLAN: Left lower lobe. PLAN: Plan 1. Continue therapy 2. I spoke with the dietitian and will add chocolate protein shakes to hold boost nutrition. 3. Continue Remeron at 15 mg Q HS 4. BP is well controlled and the HR is also controlled. 5. Recheck a BMP I spoke with Moise on the phone. She is very frustrated that he is not able to do 3 hours of therapy and that he is not progressing. I pointed out that he is now awake and alert during the day andable to participate in therapy, even though he is not able to do 3 hours. The UTI and PNA have beentreated. Hallucination/confusion resolved with discontinuation of Levaquin. He is tolerating Augmentin without adverse side effect. His BP and HR are now controlled. He is no longer nauseated and at least ate something for each meal yesterday. I told me that in my opinion he will not progress to the point where he will be able to go home in the amount of time we have been given for him to be on rehab. He most likely will go to SNF. Charges/Coding Visit Charges Inpatient E&M: 85902 Subs Hosp L1 01/07/25 1342 Savanna Kelly DO Cosigner Signature (if applicable): CC: ~ Signed [facility]07-14-2025 Progress note Author Savanna Kelly [facility] Note Date/Time January 06, 2025 2:47 pm [facility] Medical Records Department [address] [place] [address] Progress Note 01/03/25 1205 MR#: [id number] Acct: [id number] Name: SUNG YAÑEZ Rep #:[id number] : 1940 84 From: Savanna Kelly DO PCP: Dr. Briseida Vergara MD Status:ADM IN Location: [place] [address] Subjective Subjective Afebrile VSS -blood pressure has improved with hydration and is currently 128/73 with a heart rate of 100. Maintaining appropriate oxygen saturation on -94 to 98%. Oral intake - FOOD erratic FLUIDS fair Discussed with nursing - no problems that need addressed Reviewed the THERAPY notes Medication list reviewed. White blood cell count is normal today. Hemoglobin is normal at 14.5. Platelets are within normal limits. Sodium is low at 130 and the potassium is 4.6. BUN is down to 13 after IV fluids yesterday. Fattening is 0.75 and stable. Serum osmolality is normal at 286. Urine sodium is less than maximallydilute at 437 and the urine sodium was 51. This is consistent with SIADH. Ton denies lightheadedness, cephalgia, chest pain, palpitations, shortness of breath, cough, sore throat, dysuria, nausea, abdominal pain. Objective Data Objective Data Vital Signs: Vital Signs Temp Pulse Resp BP Pulse Ox O2 Del Method O2 Flow Rate 98.3 F 100 17 128/73 H 98 Room Air 2 01/03/25 11:23 01/03/25 11:23 01/03/25 11:23 01/03/25 11:23 01/03/25 11:23 01/03/25 11:28 01/03/25 08:59 FiO2 21 12/31/24 22:01 Oxygen Flow Rate (L/min) 2 Oxygen Delivery Method Room Air Weight: 208 lb 5.389 oz Body Mass Index (BMI) 26.0 Intake & Output: Intake and Output for Last 24 Hours 01/01/25 01/02/25 01/03/25 23:59 23:59 23:59 Intake Total 1170 / 1170 1780 / 1780 1060 / 1060 Output Total 350 / 350 Balance 820 / 820 1780 / 1780 1060 / 1060 Lab / Micro Data 01/06/25 12:13 01/06/25 12:13 Labs: Laboratory Results - last 24 hr 01/02/25 14:35: Urine Osmolality 437, Ur Random Sodium 51 01/03/25 05:26: WBC 8.2, RBC 4.67, Hgb 14.5, Hct 43.0, MCV 92.1, MCH 31.0, MCHC 33.7, RDW Std Deviation 47.1 H, RDW Coeff of Chastity 14.0, Plt Count 232, MPV 11.0, Immature Gran % (Auto) 0.400, Neut % (Auto) 74.1 H, Lymph % (Auto) 7.7 L, Falls %(Auto) 11.4 H, Eos % (Auto) 5.8 H, Baso % (Auto) 0.6, Absolute Neuts (auto) 6.0,Absolute Lymphs (auto) 0.63 L, Nucleated RBC % 0, Sodium 130 L, Potassium 4.6, Chloride 101, Carbon Dioxide 21.3, Anion Gap 7, BUN 13, Creatinine 0.75, Estim Creat Clear Calc 85.09, Est GFR (MDRD) Non-Af 90, BUN/Creatinine Ratio 17.3, Glucose 111 H, Calcium 8.7 Micro: Microbiology 12/31/24 15:00 Urine Catheter - Catheter Urine Culture - Final Enterococcus faecalis 01/01/25 06:58 Stool Stool Occult Blood (AMOS) - Final Occult Blood Positive Physical Exam Const Constitutional Narrative: More alert today than he was the end of last week. COnfused. No agitated. Resp Resp Narrative: Not coughing. Not tachypneic. Respirations are not labored. Normal inspiratory effort. Diminished in both bases, left greater than right. No wheezing. Few coarse crackles in the left midlung. Cardio Cardio Narrative: Irregular irregular rhythm with controlled ventricular response on metoprolol. No gallop, no murmur. GI normal to inspection, nondistended, normoactive bowel sounds and soft to palpation GI Narrative: No guarding with palpation. Incontinent of stool......has no sensation that he has even moved his bowels. Also continent of urine. Had a large bowel movement today. Extremity no calf tenderness General Extremity: Negative for edema Skin Rashes: no rashes Assessment & Plan Assessment/Plan (1) Debility: (2) Intracerebral bleed due to trauma: QUALIFIERS: Encounter type: subsequent encounter Laterality: unspecified laterality Loss of consciousness presence/duration: without LOC Qualified Code(s): S06.360D - Traumatic hemorrhage of cerebrum, unspecified, without loss of consciousness, subsequent encounter (3) Mild cognitive impairment: (4) Acute left-sided weakness: (5) Paresthesias: (6) Depression: QUALIFIERS: Depression Type: reactive depression Qualified Code(s): F32.9 - Major depressive disorder, single episode, unspecified (7) Urinary incontinence: QUALIFIERS: Urinary Incontinence type: urinary incontinence without sensory awareness Qualified Code(s): N39.42 - Incontinence without sensory awareness (8) Essential (primary) hypertension: (9) Paroxysmal atrial fibrillation: (10) Chronic anticoagulation: (11) Peripheral neuropathy: QUALIFIERS: Peripheral neuropathy type: polyneuropathy, other Qualified Code(s): G62.89 - Other specified polyneuropathies (12) PAD (peripheral artery disease): (13) Heme positive stool: (14) Hyponatremia: PLAN: Lab consistent with SIADH PLAN: Plan 1. Continue therapy 2. Stop the IV fluids 3. Start salt tabs. Hold off on diuretic for now. Fluid restrict to 1200 cc/day. 4. Restart Provigil 100 mg p.o. every morning 5. Recheck BMP Monday 6. Continue Remeron. Charges/Coding Visit Charges Inpatient E&M: 86529 Subs Hosp L1 01/06/25 0312 <Electronically signed by Savanna Kelly DO> Savanna Kelly DO Cosigner Signature (if applicable): CC: ~ Signed [facility] Work Phone: [phone] 589-281807-14-2025 Progress note Author Savanna Kelly [facility] Note Date/Time January 06, 2025 2:44 pm [facility] Medical Records Department [address] [place] [address] Progress Note 01/06/25 1140 MR#: [id number] Acct: [id number] Name: SUNG YAÑEZ Rep #:[id number] : 1940 84 From: Savanna Bonillaboris DO PCP: Dr. Briseida Vergara MD Status:ADM IN Location: [place] [address] Subjective Subjective Afebrile VSS -blood pressure over the past 48 hours has ranged from 115/62 to 138/75. Heart rate has ranged from 93-104. Maintaining appropriate oxygen saturation on RA-94% on room air today Oral intake - FOOD he refused breakfast and lunch yesterday and had nausea and an emesis. He was started on Protonix and he ate 75 to 100% of supper last night and breakfast this morning. 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 Discussed with nursing - no problems that need addressed Reviewed the THERAPY notes Medication list reviewed. More alert today. Confused. Wants his to bring his walker so he can leavethis place. Seeing ants on the floor. suspect this is due to Levaquin. Denies pain, nausea, vomiting, abd pain, cough and SOB. No lightheadedness and no cephalgia. Objective Data Objective Data Vital Signs: Vital Signs Temp Pulse Resp BP Pulse Ox O2 Del Method O2 Flow Rate 98.6 F 100 17 127/74 H 94 Room Air 2 01/06/25 06:00 01/06/25 08:17 01/06/25 06:00 01/06/25 06:00 01/06/25 09:43 01/06/25 09:43 01/06/25 06:00 FiO2 94 01/05/25 22:00 Oxygen Flow Rate (L/min) 2 Oxygen Delivery Method Room Air Weight: 208 lb 5.389 oz Body Mass Index (BMI) 26.0 Intake & Output: Intake and Output for Last 24 Hours 01/04/25 01/05/25 01/06/25 23:59 23:59 23:59 Intake Total 945 / 945 1440 / 1440 175 / 175 Balance 945 / 945 1440 / 1440 175 / 175 Lab / Micro Data 01/06/25 12:13 01/06/25 12:13 Micro: Microbiology 12/31/24 15:00 Urine Catheter - Catheter Urine Culture - Final Enterococcus faecalis 01/01/25 06:58 Stool Stool Occult Blood (AMOS) - Final Occult Blood Positive Physical Exam Const Constitutional Narrative: More alert today than he was the end of last week. COnfused. No agitated. HEENT HEENT Narrative: Has some ptosis of the Left upper eyelid. MM are dry. Neck supple Resp Resp Narrative: Not coughing. Not tachypneic. Respirations are not labored. Normal inspiratory effort. Diminished in both bases, left greater than right. No wheezing. Few coarse crackles in the left midlung. Cardio Cardio Narrative: Irregular irregular rhythm with controlled ventricular response on metoprolol. No gallop, no murmur. GI normal to inspection, nondistended, normoactive bowel sounds and soft to palpation GI Narrative: No guarding with palpation. Incontinent of stool......has no sensation that he has even moved his bowels. Also continent of urine. Had a large bowel movement today. Extremity no calf tenderness General Extremity: Negative for edema Skin Rashes: no rashes Psych Psych Narrative: His eyes are open today when he is talking with me and he made eye contact with me today. I am not having to constantly arouse him to get him to talk to me. Assessment & Plan Assessment/Plan (1) Debility: (2) Intracerebral bleed due to trauma: QUALIFIERS: Encounter type: subsequent encounter Laterality: unspecified laterality Loss of consciousness presence/duration: without LOC Qualified Code(s): S06.360D - Traumatic hemorrhage of cerebrum, unspecified, without loss of consciousness, subsequent encounter (3) Mild cognitive impairment: (4) Acute left-sided weakness: (5) Paresthesias: (6) Depression: QUALIFIERS: Depression Type: reactive depression Qualified Code(s): F32.9 - Major depressive disorder, single episode, unspecified (7) Urinary incontinence: QUALIFIERS: Urinary Incontinence type: urinary incontinence without sensory awareness Qualified Code(s): N39.42 - Incontinence without sensory awareness (8) Essential (primary) hypertension: (9) Paroxysmal atrial fibrillation: (10) Chronic anticoagulation: (11) Peripheral neuropathy: QUALIFIERS: Peripheral neuropathy type: polyneuropathy, other Qualified Code(s): G62.89 - Other specified polyneuropathies (12) PAD (peripheral artery disease): (13) Heme positive stool: (14) Hyponatremia: PLAN: Lab consistent with SIADH (15) Hospital-acquired pneumonia: PLAN: Left base (16) Acute delirium: PLAN: Suspect secondary to Levaquin. PLAN: Plan 1. Continue therapy 2. Discontinue Levaquin due to hallucinations/confusion. Start Augmentin 875 mg BID. Hallucinations could also be due to hyponatremia.......the order I put in for salt tabs on Monday never got started until this morning. 3. STAT BMP - sodium was 129 Monday. Sodium chloride tablets 1 g p.o. twice daily was ordered at 06/05 on 01/03/2025 and patient never received an dose untilthis morning? Checking with pharmacy to see why this happened. He has SIADH. Charges/Coding Visit Charges Inpatient E&M: 47540 Subs Hosp L2 01/06/25 1441 <Electronically signed by Savanna Kelly DO> Savanna Kelly DO Cosigner Signature (if applicable): CC: ~ Signed ADDENDUM by Dr. Savanna Kelly DO on 01/06/25 at 1444 Addendum All lab was reviewed. White blood cell count is 8.3 with 65.8% neutrophils. Hemoglobin is 15.1, up from 14.5 on 01/03/2025. Sodium is 130 which is up from 129 on 01/04/2025. He did not receive his first dose of sodium chloride tablet until this a.m. despite the fact that it was ordered on 08/06/2024 at noon. The BUN is 28, up from 15 on 01/04/2025 and the creatinine is 0.9, up from 0.74 on 01/04/2025. His last TSH was in 2022. Will check a TSH. Continue fluid restriction to 1200 cc a day and salt tablets twice daily. Recheck a BMP later this week. 01/06/25 1444 <Electronically signed by Savanna escalante DO> Date _ Savanna Kellyigneleni Signature (if applicable): Date cc: ~* Signed [facility] Work Phone: [phone]) 976-917107-14-2025 Progress note [facility] Medical Records Department [address] [place] [address] Progress Note 01/03/25 1205 MR#: [id number] Acct: [id number] Name: SUNG YAÑEZ Rep #:[id number] : 1940 84 From: Savanna Kelly DO PCP: Dr. Briseida Vergara MD Status:ADM IN Location: [place] [address] Subjective Subjective Afebrile VSS -blood pressure has improved with hydration and is currently 128/73 with a heart rate of 100. Maintaining appropriate oxygen saturation on - to 98%. Oral intake - FOOD erratic FLUIDS fair Discussed with nursing - no problems that need addressed Reviewed the THERAPY notes Medication list reviewed. White blood cell count is normal today. Hemoglobin is normal at 14.5. Platelets are within normal limits. Sodium is low at 130 and the potassium is 4.6. BUN is down to 13 after IV fluids yesterday. Fattening is 0.75 and stable. Serum osmolality is normal at 286. Urine sodium is less than maximallydilute at 437 and the urine sodium was 51. This is consistent with SIADH. Ton denies lightheadedness, cephalgia, chest pain, palpitations, shortness of breath, cough, sore throat, dysuria, nausea, abdominal pain. Objective Data Objective Data Vital Signs: Vital Signs Temp Pulse Resp BP Pulse Ox O2 Del Method O2 Flow Rate 98.3 F 100 17 128/73 H 98 Room Air 2 01/03/25 11:23 01/03/25 11:23 01/03/25 11:23 01/03/25 11:23 01/03/25 11:23 01/03/25 11:28 01/03/25 08:59 FiO2 21 12/31/24 22:01 Oxygen Flow Rate (L/min) 2 Oxygen Delivery Method Room Air Weight: 208 lb 5.389 oz Body Mass Index (BMI) 26.0 Intake & Output: Intake and Output for Last 24 Hours 01/01/25 01/02/25 01/03/25 23:59 23:59 23:59 Intake Total 1170 / 1170 1780 / 1780 1060 / 1060 Output Total 350 / 350 Balance 820 / 820 1780 / 1780 1060 / 1060 Lab / Micro Data 01/06/25 12:13 01/06/25 12:13 Labs: Laboratory Results - last 24 hr 01/02/25 14:35: Urine Osmolality 437, Ur Random Sodium 51 01/03/25 05:26: WBC 8.2, RBC 4.67, Hgb 14.5, Hct 43.0, MCV 92.1, MCH 31.0, MCHC 33.7, RDW Std Deviation 47.1 H, RDW Coeff of Chastity 14.0, Plt Count 232, MPV 11.0, Immature Gran % (Auto) 0.400, Neut % (Auto) 74.1 H, Lymph % (Auto) 7.7 L, Falls %(Auto) 11.4 H, Eos % (Auto) 5.8 H, Baso % (Auto) 0.6, Absolute Neuts (auto) 6.0,Absolute Lymphs (auto) 0.63 L, Nucleated RBC % 0, Sodium 130 L, Potassium 4.6, Chloride 101, Carbon Dioxide 21.3, Anion Gap 7, BUN 13, Creatinine 0.75, Estim Creat Clear Calc 85.09, Est GFR (MDRD) Non-Af 90, BUN/Creatinine Ratio 17.3, Glucose 111 H, Calcium 8.7 Micro: Microbiology 12/31/24 15:00 Urine Catheter - Catheter Urine Culture - Final Enterococcus faecalis 01/01/25 06:58 Stool Stool Occult Blood (AMOS) - Final Occult Blood Positive Physical Exam Const Constitutional Narrative: More alert today than he was the end of last week. COnfused. No agitated. Resp Resp Narrative: Not coughing. Not tachypneic. Respirations are not labored. Normal inspiratory effort. Diminished in both bases, left greater than right. No wheezing. Few coarse crackles in the left midlung. Cardio Cardio Narrative: Irregular irregular rhythm with controlled ventricular response on metoprolol. No gallop, no murmur. GI normal to inspection, nondistended, normoactive bowel sounds and soft to palpation GI Narrative: No guarding with palpation. Incontinent of stool......has no sensation that he has even moved his bowels. Also continent of urine. Had a large bowel movement today. Extremity no calf tenderness General Extremity: Negative for edema Skin Rashes: no rashes Assessment & Plan Assessment/Plan (1) Debility: (2) Intracerebral bleed due to trauma: QUALIFIERS: Encounter type: subsequent encounter Laterality: unspecified laterality Loss of consciousness presence/duration: without LOC Qualified Code(s): S06.360D - Traumatic hemorrhage of cerebrum, unspecified, without loss of consciousness, subsequent encounter (3) Mild cognitive impairment: (4) Acute left-sided weakness: (5) Paresthesias: (6) Depression: QUALIFIERS: Depression Type: reactive depression Qualified Code(s): F32.9 - Major depressive disorder, single episode, unspecified (7) Urinary incontinence: QUALIFIERS: Urinary Incontinence type: urinary incontinence without sensory awareness Qualified Code(s): N39.42 - Incontinence without sensory awareness (8) Essential (primary) hypertension: (9) Paroxysmal atrial fibrillation: (10) Chronic anticoagulation: (11) Peripheral neuropathy: QUALIFIERS: Peripheral neuropathy type: polyneuropathy, other Qualified Code(s): G62.89 - Other specified polyneuropathies (12) PAD (peripheral artery disease): (13) Heme positive stool: (14) Hyponatremia: PLAN: Lab consistent with SIADH PLAN: Plan 1. Continue therapy 2. Stop the IV fluids 3. Start salt tabs. Hold off on diuretic for now. Fluid restrict to 1200 cc/day. 4. Restart Provigil 100 mg p.o. every morning 5. Recheck BMP Monday 6. Continue Remeron. Charges/Coding Visit Charges Inpatient E&M: 96693 [facility] Hosp L1 01/06/25 2939 Savanna Kelly DO [facility] Signature (if applicable): CC: ~ Signed [facility]07-14-2025 Progress note [facility] Medical Records Department [address] [place] [address] Progress Note 01/06/25 1140 MR#: [id number] Acct: [id number] Name: SUNG YAÑEZ Rep #:[id number] : 1940 84 From: Savanna Yancy Ireneboris PEARCE PCP: Dr. Briseida Vergara MD Status:ADM IN Location: [place] [address] Subjective Subjective Afebrile VSS -blood pressure over the past 48 hours has ranged from 115/62 to 138/75. Heart rate has ranged from 93-104. Maintaining appropriate oxygen saturation on RA-94% on room air today Oral intake - FOOD he refused breakfast and lunch yesterday and had nausea and an emesis. He was started on Protonix and he ate 75 to 100% of supper last night and breakfast this morning. 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 Discussed with nursing - no problems that need addressed Reviewed the THERAPY notes Medication list reviewed. More alert today. Confused. Wants his to bring his walker so he can leavethis place. Seeing ants on the floor. suspect this is due to Levaquin. Denies pain, nausea, vomiting, abd pain, cough and SOB. No lightheadedness and no cephalgia. Objective Data Objective Data Vital Signs: Vital Signs Temp Pulse Resp BP Pulse Ox O2 Del Method O2 Flow Rate 98.6 F 100 17 127/74 H 94 Room Air 2 01/06/25 06:00 01/06/25 08:17 01/06/25 06:00 01/06/25 06:00 01/06/25 09:43 01/06/25 09:43 01/06/25 06:00 FiO2 94 01/05/25 22:00 Oxygen Flow Rate (L/min) 2 Oxygen Delivery Method Room Air Weight: 208 lb 5.389 oz Body Mass Index (BMI) 26.0 Intake & Output: Intake and Output for Last 24 Hours 01/04/25 01/05/25 01/06/25 23:59 23:59 23:59 Intake Total 945 / 945 1440 / 1440 175 / 175 Balance 945 / 945 1440 / 1440 175 / 175 Lab / Micro Data 01/06/25 12:13 01/06/25 12:13 Micro: Microbiology 12/31/24 15:00 Urine Catheter - Catheter Urine Culture - Final Enterococcus faecalis 01/01/25 06:58 Stool Stool Occult Blood (AMOS) - Final Occult Blood Positive Physical Exam Const Constitutional Narrative: More alert today than he was the end of last week. COnfused. No agitated. HEENT HEENT Narrative: Has some ptosis of the Left upper eyelid. MM are dry. Neck supple Resp Resp Narrative: Not coughing. Not tachypneic. Respirations are not labored. Normal inspiratory effort. Diminished in both bases, left greater than right. No wheezing. Few coarse crackles in the left midlung. Cardio Cardio Narrative: Irregular irregular rhythm with controlled ventricular response on metoprolol. No gallop, no murmur. GI normal to inspection, nondistended, normoactive bowel sounds and soft to palpation GI Narrative: No guarding with palpation. Incontinent of stool......has no sensation that he has even moved his bowels. Also continent of urine. Had a large bowel movement today. Extremity no calf tenderness General Extremity: Negative for edema Skin Rashes: no rashes Psych Psych Narrative: His eyes are open today when he is talking with me and he made eye contact with me today. I am not having to constantly arouse him to get him to talk to me. Assessment & Plan Assessment/Plan (1) Debility: (2) Intracerebral bleed due to trauma: QUALIFIERS: Encounter type: subsequent encounter Laterality: unspecified laterality Loss of consciousness presence/duration: without LOC Qualified Code(s): S06.360D - Traumatic hemorrhage of cerebrum, unspecified, without loss of consciousness, subsequent encounter (3) Mild cognitive impairment: (4) Acute left-sided weakness: (5) Paresthesias: (6) Depression: QUALIFIERS: Depression Type: reactive depression Qualified Code(s): F32.9 - Major depressive disorder, single episode, unspecified (7) Urinary incontinence: QUALIFIERS: Urinary Incontinence type: urinary incontinence without sensory awareness Qualified Code(s): N39.42 - Incontinence without sensory awareness (8) Essential (primary) hypertension: (9) Paroxysmal atrial fibrillation: (10) Chronic anticoagulation: (11) Peripheral neuropathy: QUALIFIERS: Peripheral neuropathy type: polyneuropathy, other Qualified Code(s): G62.89 - Other specified polyneuropathies (12) PAD (peripheral artery disease): (13) Heme positive stool: (14) Hyponatremia: PLAN: Lab consistent with SIADH (15) Hospital-acquired pneumonia: PLAN: Left base (16) Acute delirium: PLAN: Suspect secondary to Levaquin. PLAN: Plan 1. Continue therapy 2. Discontinue Levaquin due to hallucinations/confusion. Start Augmentin 875 mg BID. Hallucinationscould also be due to hyponatremia.......the order I put in for salt tabs on Monday never got started until this morning. 3. STAT BMP - sodium was 129 Monday. Sodium chloride tablets 1 g p.o. twice daily was ordered at 06/05 on 01/03/2025 and patient never received an dose untilthis morning? Checking with pharmacy to see why this happened. He has SIADH. Charges/Coding Visit Charges Inpatient E&M: 72130 Subs Hosp L2 01/06/25 1441 Savanna Kelly DO Cosigner Signature (if applicable): CC: ~ Signed ADDENDUM by Dr. Savanna Kelly DO on 01/06/25 at 1444 Addendum All lab was reviewed. White blood cell count is 8.3 with 65.8% neutrophils. Hemoglobin is 15.1, up from 14.5 on 01/03/2025. Sodium is 130 which is up from 129 on 01/04/2025. He did not receive his first dose of sodium chloride tablet until this a.m. despite the fact that it was ordered on 08/06/2024 at noon. The BUN is 28, up from 15 on 01/04/2025 and the creatinine is 0.9, up from 0.74 on 01/04/2025.His last TSH was in 2022. Will check a TSH. Continue fluid restriction to 1200 cc a day and salt tablets twice daily. Recheck a BMP later this week. 01/06/25 1444 ti DO> Date _ Savanna Kellyigner Signature (if applicable): Date cc: ~* Signed [facility]07-12-2025 Radiology Diagnostic study note [facility] Imaging Services [address] [place] [address] Chest 1 View (Portable) MR#: [id number] Acct: [id number] Name: SUNG YAÑEZ Rep #: [id number] : 1940 M 84 From: Moise Roy MD PCP: Dr. Briseida Vergara MD Status: ADM IN Study:Chest 1 View (Portable) Date of Exam: 01/04/25 Exam# [id number] Ordering Dr: Savanna Kelly DO PROCEDURE: CHEST 1 VIEW (PORTABLE) 01/04/2025 REASON FOR EXAM: FEVER/POSSIBLE ASPIRATION. TECHNIQUE: Frontal view of the chest. COMPARISON: Chest radiograph 07/24/2021. FINDINGS: Hardware: None. Heart: The heart size is normal. Calcification of the thoracic aorta. Lungs: Low lung volumes. Probable left lower lung zone opacity and/or trace pleural effusion. No right pleural effusion. No pneumothorax. Bones: Degenerative changes are identified within the thoracic spine. Chronic right rib fracture deformities. RAD/Chest 1 View (Portable) IMPRESSION: Probable left lower lung zone opacity and/or trace pleural effusion. Reading Location: [facility] CC: Dr. Briseida Vergara MD; Dr. Savanna Kelly DO ~ Hypoid Gear Tester: Signed [facility]07-10-2025 Progress note Author Savanna Kelly [facility] Note Date/Time January 02, 2025 4:51 pm [facility] Medical Records Department [address] [place] [address] Progress Note 01/02/25 0713 MR#: [id number] Acct: [id number] Name: SUNG YAÑEZ Rep #:[id number] : 1940 84 From: Savanna Kelly DO PCP: Dr. Briseida Vergara MD Status:ADM IN Location: [id number] Subjective Subjective Ton was seen on team rounds today. His Latoya was present in the room. Alltheir questions were answered to their satisfaction. Macrobid day #3 Afebrile VSS -blood pressure over the past 24 hours has ranged from 116/65 to 150/84. Blood pressure this morning is 146/88. Heart rate is ranged from 83-100. Maintaining appropriate oxygen saturation on RA Oral intake - FOOD poor FLUIDS fair Discussed with nursing - refused to get out of bed today. States he is too tired. He is incontinent of urine and stool and does not even know that he has gone and depends need changed. Reviewed the THERAPY notes Medication list reviewed. Urine culture is still pending. Kept his eyes closed almost the entire time he was getting OT today. He was more alert with me and kept his eyes open at least 50% of the time we talked. He has left side neglect and will not look at me at all if I am standing on his left side. He sometimes will make eye contact with me if I am standing at the bedside on the R but, more often than not he is not making eye contact. Denies SOB, cough, CP, lightheadedness. He admits to having pain in his toes and he isc/o pain in the mid back.........he has known DDD/DJD and has had spinaL surgeryin the past. He is primarily sedentary and this is likely exacerbating the pain. While working with PT today he got nauseated, had a small emesis and became paleand diaphoretic. BP lying and then sitting upright in bed with his legs on the bed the BP and the HR did not change significantly but, he did tell me when he got nauseated he felt very lightheaded. Objective Data Objective Data Vital Signs: Vital Signs Temp Pulse Resp BP Pulse Ox O2 Del Method FiO2 98.0 F 100 15 146/88 H 95 Room Air 01/02/25 06:00 01/02/25 06:00 01/02/25 06:00 01/02/25 06:00 01/01/25 22:00 01/01/25 22:00 12/31/24 22:01 Oxygen Delivery Method Room Air Weight: 202 lb 7.984 oz Body Mass Index (BMI) 25.3 Intake & Output: Intake and Output for Last 24 Hours 12/31/24 01/01/25 01/02/25 23:59 23:59 23:59 Intake Total 1440 / 1440 1170 / 1170 300 / 300 Output Total 200 / 200 350 / 350 Balance 1240 / 1240 820 / 820 300 / 300 Lab / Micro Data 01/01/25 06:58 01/01/25 06:58 Labs: Laboratory Results - last 24 hr 01/01/25 06:58: WBC 6.6, RBC 4.89, Hgb 14.9, Hct 44.5, MCV 91.0, MCH 30.5, MCHC 33.5, RDW Std Deviation 45.2 H, RDW Coeff of Chastity 13.7, Plt Count 250, MPV 11.4, Immature Gran % (Auto) 0.300, Neut % (Auto) 63.8, Lymph % (Auto) 22.0, Falls % (Auto) 9.5, Eos % (Auto) 3.8, Baso % (Auto) 0.6, Absolute Neuts (auto) 4.2, Absolute Lymphs (auto) 1.46, Nucleated RBC % 0, Sodium 131 L, Potassium 4.2, Chloride 100, Carbon Dioxide 18.3 L, Anion Gap 13, BUN 17, Creatinine 0.72, Estim Creat Clear Calc 85.09, Est GFR (MDRD) Non-Af 91, BUN/Creatinine Ratio 23.8 H, Glucose 111 H, Calcium 9.2, Phosphorus 3.2, Magnesium 2.0, Total Bilirubin 0.94, AST 26, ALT 29, Alkaline Phosphatase 132 H, Total Protein 6.3, Albumin 3.3 L, Globulin 3.1, Albumin/Globulin Ratio 1.1 Micro: Microbiology 01/01/25 06:58 Stool Stool Occult Blood (AMOS) - Final Occult Blood Positive Physical Exam Const Constitutional Narrative: drowsy but, more alert with me today than he has been in the past 2 days. I didnot have to keep arousing him today. HEENT HEENT Narrative: Has some ptosis of the Left upper eyelid. MM are dry. Resp Resp Narrative: Not coughing. Not tachypneic. I was able to listen to the posterior lungs today and he is CTA. Diminished throughout but, lory in the bases. Better efforttoday. Cardio Cardio Narrative: Irregular irregular rhythm with controlled ventricular response on metoprolol. No gallop, no murmur. GI normal to inspection, nondistended, normoactive bowel sounds and soft to palpation GI Narrative: No guarding with palpation. Incontinent of stool......has no sensation that he has even moved his bowels. Extremity no calf tenderness General Extremity: Negative for edema Skin Rashes: no rashes Psych Psych Narrative: Very flat affect. Talks to people with eyes closed. Wanting to sleep most of the day. Poor appetite. Wants to get better but, feeling kind of hopeless. Not a lot of effort put forth with therapy. NO agitation. Assessment & Plan Assessment/Plan (1) Debility: (2) Intracerebral bleed due to trauma: QUALIFIERS: Encounter type: subsequent encounter Laterality: unspecified laterality Loss of consciousness presence/duration: without LOC Qualified Code(s): S06.360D - Traumatic hemorrhage of cerebrum, unspecified, without loss of consciousness, subsequent encounter (3) Mild cognitive impairment: (4) Acute left-sided weakness: (5) Paresthesias: (6) Depression: QUALIFIERS: Depression Type: reactive depression Qualified Code(s): F32.9 - Major depressive disorder, single episode, unspecified (7) Urinary incontinence: QUALIFIERS: Urinary Incontinence type: urinary incontinence without sensory awareness Qualified Code(s): N39.42 - Incontinence without sensory awareness (8) Sleep apnea: QUALIFIERS: Sleep apnea type: obstructive Qualified Code(s): G47.33 - Obstructive sleep apnea (adult) (pediatric) (9) Essential (primary) hypertension: (10) Paroxysmal atrial fibrillation: (11) Chronic anticoagulation: (12) Venous insufficiency (chronic) (peripheral): (13) Peripheral neuropathy: QUALIFIERS: Peripheral neuropathy type: polyneuropathy, other Qualified Code(s): G62.89 - Other specified polyneuropathies (14) PAD (peripheral artery disease): (15) History of melanoma: (16) Heme positive stool: (17) Hyponatremia: (18) Near syncope: (19) Dehydration: PLAN: Plan 1. Continue therapy 2. Start Provigil 100 mg daily in the a.m. - he received a dose of this today. 3. Give the Remeron at 8 PM rather than 10PM 4. Check a urine sodium, urine osmolality and serum osmolality. 5. Try compounded neuropathy cream on his feet. Was using an OTC nerve pill at home. I really do not want to add any potentially sedating meds to the current drug regimen. 6. He uses nervive on his feet at home for neuropathy and I OKayed use of this while on rehab. Would like to avoid any sedating meds at least for now because he has been so sleepy and difficult to keep awake. 7. IV fluids have been ordered with a 1 liter bolus over 1 hour. He had a stress test approximately 1 year ago that showed preserved ejection fraction with no ischemia. Charges/Coding Visit Charges Inpatient E&M: 64808 Subs Hosp L2 01/02/251638 <Electronically signed by Savanna Kelly DO> Savanna Kelly DO Cosigner Signature (if applicable): CC: ~ Signed ADDENDUM by Dr. Savanna Kelly, on 01/02/25 at 1651 Addendum The urine is growing greater than 100,000 colonies of a possible Enterococcus species. Sensitivities are still pending. He does not have a fever but he has been on acetaminophen 1 g p.o. [address] this on hold. Check aCBC with differential in the AM. I suspect the nausea was due to orthostasis/dehydration and after the fluid bolus he was able to eat some lunch and denied nausea. He has no flank pain. I think this is a simple cystitis andWill continue Macrobid for now and await the results of the sensitivities. After the IV NS bolus he was able to stay awake for the entire time it took to do the TEAM meeting. He spoke more than I have heard him speak since admission and he was appropriate. Blood pressure after the fluid bolus was 140/74 with a heart rate of 76 which are both improved from a blood pressure of 104/67 this morning with a heart rate of 105. Will see how he is in the AM.......if he is alert and able to participate in therapy will hold the Provigil. 01/02/251650 <Electronically signed by Savanna escalante DO> Date _ Sementi,Savanna Yancy Cosigner Signature (if applicable): Date cc: ~* Signed [facility] [facility] Work Phone: [phone] 219-790807-10-2025 Progress note [facility] Medical Records Department [address] [place] [address] Progress Note 01/02/25712 MR#: [id number] Acct: [id number] Name: SUNG YAÑEZ Rep #:[id number] : 1940 84 From: Savanna Kelly DO PCP: Dr. Briseida Vergara MD Status:ADM IN Location: [place] [address] Subjective Subjective Ton was seen on team rounds today. His Ltaoya was present in the room. Alltheir questions were answered to their satisfaction. Macrobid day #3 Afebrile VSS -blood pressure over the past 24 hours has ranged from 116/65 to 150/84. Blood pressure this morning is 146/88. Heart rate is ranged from 83-100. Maintaining appropriate oxygen saturation on RA Oral intake - FOOD poor FLUIDS fair Discussed with nursing - refused to get out of bed today. States he is too tired. He is incontinentof urine and stool and does not even know that he has gone and depends need changed. Reviewed the THERAPY notes Medication list reviewed. Urine culture is still pending. Kept his eyes closed almost the entire time he was getting OT today. He was more alert with me and kept his eyes open at least 50% of the time we talked. He has left side neglect and will not look atme at all if I am standing on his left side. He sometimes will make eye contact with me if I am standing at the bedside on the R but, more often than not he is not making eye contact. Denies SOB, coug h, CP, lightheadedness. He admits to having pain in his toes and he isc/o pain in the mid back.........he has known DDD/DJD and has had spinaL surgeryin the past. He is primarily sedentary and this is likely exacerbating the pain. While working with PT today he got nauseated, had a small emesis and became paleand diaphoretic. BPlying and then sitting upright in bed with his legs on the bed the BP and the HR did not change significantly but, he did tell me when he got nauseated he felt very lightheaded. Objective Data Objective Data Vital Signs: Vital Signs Temp Pulse Resp BP Pulse Ox O2 Del Method FiO2 98.0 F 100 15 146/88 H 95 Room Air 21 01/02/25 06:00 01/02/25 06:00 01/02/25 06:00 01/02/25 06:00 01/01/25 22:00 01/01/25 22:00 12/31/24 22:01 Oxygen Delivery Method Room Air Weight: 202 lb 7.984 oz Body Mass Index (BMI) 25.3 Intake & Output: Intake and Output for Last 24 Hours 12/31/24 01/01/25 01/02/25 23:59 23:59 23:59 Intake Total 1440 / 1440 1170 / 1170 300 / 300 Output Total 200 / 200 350 / 350 Balance 1240 / 1240 820 / 820 300 / 300 Lab / Micro Data 01/01/25 06:58 01/01/25 06:58 Labs: Laboratory Results - last 24 hr 01/01/25 06:58: WBC 6.6, RBC 4.89, Hgb 14.9, Hct 44.5, MCV 91.0, MCH 30.5, MCHC 33.5, RDW Std Deviation 45.2 H, RDW Coeff of Chastity 13.7, Plt Count 250, MPV 11.4, Immature Gran % (Auto) 0.300, Neut % (Auto) 63.8, Lymph % (Auto) 22.0, Falls % (Auto) 9.5, Eos % (Auto) 3.8, Baso % (Auto) 0.6, Absolute Neuts (auto) 4.2, Absolute Lymphs (auto) 1.46, Nucleated RBC % 0, Sodium 131 L, Potassium 4.2, [id number], Carbon Dioxide 18.3 L, Anion Gap 13, BUN 17, Creatinine 0.72, Estim Creat Clear Calc 85.09, Est GFR (MDRD) Non-Af 91, BUN/Creatinine Ratio 23.8 H, Glucose 111 H, Calcium 9.2, Phosphorus 3.2, Magnesium 2.0, Total Bilirubin 0.94, AST 26, ALT 29, Alkaline Phosphatase 132 H, Total Protein 6.3, Albumin 3.3 L, Globulin 3.1, Albumin/Globulin Ratio 1.1 Micro: Microbiology 01/01/25 06:58 Stool Stool Occult Blood (AMOS) - Final Occult Blood Positive Physical Exam Const Constitutional Narrative: drowsy but, more alert with me today than he has been in the past 2 days. I didnot have to keep arousing him today. HEENT HEENT Narrative: Has some ptosis of the Left upper eyelid. MM are dry. Resp Resp Narrative: Not coughing. Not tachypneic. I was able to listen to the posterior lungs today and he is CTA. Diminished throughout but, lory in the bases. Better efforttoday. Cardio Cardio Narrative: Irregular irregular rhythm with controlled ventricular response on metoprolol. No gallop, no murmur. GI normal to inspection, nondistended, normoactive bowel sounds and soft to palpation GI Narrative: No guarding with palpation. Incontinent of stool......has no sensation that he has even moved his bowels. Extremity no calf tenderness General Extremity: Negative for edema Skin Rashes: no rashes Psych Psych Narrative: Very flat affect. Talks to people with eyes closed. Wanting to sleep most of the day. Poor appetite. Wants to get better but, feeling kind of hopeless. Not a lot of effort put forth with therapy. NO agitation. Assessment & Plan Assessment/Plan (1) Debility: (2) Intracerebral bleed due to trauma: QUALIFIERS: Encounter type: subsequent encounter Laterality: unspecified laterality Loss of consciousness presence/duration: without LOC Qualified Code(s): S06.360D - Traumatic hemorrhage of cerebrum, unspecified, without loss of consciousness, subsequent encounter (3) Mild cognitive impairment: (4) Acute left-sided weakness: (5) Paresthesias: (6) Depression: QUALIFIERS: Depression Type: reactive depression Qualified Code(s): F32.9 - Major depressive disorder, single episode, unspecified (7) Urinary incontinence: QUALIFIERS: Urinary Incontinence type: urinary incontinence without sensory awareness Qualified Code(s): N39.42 - Incontinence without sensory awareness (8) Sleep apnea: QUALIFIERS: Sleep apnea type: obstructive Qualified Code(s): G47.33 - Obstructive sleep apnea (adult) (pediatric) (9) Essential (primary) hypertension: (10) Paroxysmal atrial fibrillation: (11) Chronic anticoagulation: (12) Venous insufficiency (chronic) (peripheral): (13) Peripheral neuropathy: QUALIFIERS: Peripheral neuropathy type: polyneuropathy, other Qualified Code(s): G62.89 - Other specified polyneuropathies (14) PAD (peripheral artery disease): (15) History of melanoma: (16) Heme positive stool: (17) Hyponatremia: (18) Near syncope: (19) Dehydration: PLAN: Plan 1. Continue therapy 2. Start Provigil 100 mg daily in the a.m. - he received a dose of this today. 3. Give the Remeron at 8 PM rather than 10PM 4. Check a urine sodium, urine osmolality and serum osmolality. 5. Try compounded neuropathy cream on his feet. Was using an OTC nerve pill at home. I really do not want to add any potentially sedating meds to the current drug regimen. 6. He uses nervive on his feet at home for neuropathy and I OKayed use of this while on rehab. Would like to avoid any sedating meds at least for now because he has been so sleepy and difficult to keep awake. 7. IV fluids have been ordered with a 1 liter bolus over 1 hour. He had a stress test approximately1 year ago that showed preserved ejection fraction with no ischemia. Charges/Coding Visit Charges Inpatient E&M: 78207 Subs Hosp L2 01/02/25 1639 Savanna Kelly DO Cosigner Signature (if applicable): CC: ~ Signed ADDENDUM by Dr. Savanna Kelly DO on 01/02/25 at 1651 Addendum The urine is growing greater than 100,000 colonies of a possible Enterococcus species. Sensitivities are still pending. He does not have a fever but he has been on acetaminophen 1 g p.o. [address] this on hold. Check aCBC with differential in the AM. I suspect the nausea was due to o rthostasis/dehydration and after the fluid bolus he was able to eat some lunch and denied nausea. He has no flank pain. I think this is a simple cystitis andWill continue Macrobid for now and await the results of the sensitivities. After the IV NS bolus he was able to stay awake for the entire time it took to do the TEAM meeting.He spoke more than I have heard him speak since admission and he was appropriate. Blood pressure after the fluid bolus was 140/74 with a heart rate of 76 which are both improved from a blood pressureof 104/67 this morning with a heart rate of 105. Will see how he is in the AM.......if he is alert and able to participate in therapy will hold the Provigil. 01/02/25 1651 ti DO> Date _ Savanna Kelly DO Cosigner Signature (if applicable): Date cc: ~* Signed [facility]07-10-2025 Progress note Author Savanna Ireneboris [facility] Note Date/Time January 02, 2025 8:15 am [facility] Medical Records Department [address] [place] [address] Progress Note 01/01/25 1203 MR#: [id number] Acct: [id number] Name: SUNG YAÑEZ Rep #:[id number] : 1940 84 From: Savanna Kelly DO PCP: Dr. Briseida Vergara MD Status:ADM IN Location: [facility]7 Subjective Subjective Day #2 Macrobid for acute cystitis....... more likely than not related to pure wick catheter used at the previous institution. Afebrile Blood pressure this morning is 116/65 with a heart rate of 93. Has not requiredany as needed hydralazine. Maintaining appropriate oxygen saturation on room air. I reviewed the overnight trending pulse ox and he had no desaturations. Oral fluid intake yesterday was +1440. Output is not accurate secondary to urinary incontinence. Appetite is poor. Weight is stable. Postvoid residuals x 3 are all less than 150. All lab drawn this morning was personally reviewed. White blood cell count is 6.6 and the hemoglobin today is 14.9. Platelets are within normal limits. Sodium is low at 131 today and the potassium is 4.2. Bicarb is mildly decreasedat 18.3. BUN is 17 with a creatinine of 0.72 and a BUN/creatinine ratio of 23.8. GFR is 91. Calcium, phosphorus and magnesium are all within normal limits. LFTs are unremarkable. Tells me he slept pretty well last night. Denies chest pain, shortness of breath, palpitations, nausea/vomiting/abdominal pain, dysuria and calf tenderness. Denies headache and lightheadedness. I spoke to his on the phone. She tells me that he has been falling asleep a lot during the day over the past couple months. He often walks without a device but, uses a cane when he is in gn[place] going to [employer]. Appetite has been good at home. Has not been losing wt. She thinks he has been depressed. Has not used CPAP in >20 years. Has had some falls. Objective Data Objective Data Vital Signs: Vital Signs Temp Pulse Resp BP Pulse Ox O2 Del Method FiO2 98.8 F 93 17 116/65 94 Room Air 21 01/01/25 04:43 01/01/25 10:00 01/01/25 04:43 01/01/25 10:00 01/01/25 06:54 01/01/25 10:00 12/31/24 22:01 Oxygen Delivery Method Room Air Weight: 202 lb 7.984 oz Body Mass Index (BMI) 25.3 Intake & Output: Intake and Output for Last 24 Hours 12/30/24 12/31/24 01/01/25 23:59 23:59 23:59 Intake Total 200 / 200 1440 / 1440 220 / 220 Output Total 200 / 200 200 / 200 Balance 200 / 200 1240 / 1240 20 / 20 Lab / Micro Data 01/01/25 06:58 01/01/25 06:58 Labs: Laboratory Results - last 24 hr 12/31/24 15:00: Urine Color Yellow, Urine Clarity Turbid, Urine pH 6.0, Ur Specific [place] 1.020, Urine Protein 30 H, Urine Glucose (UA) 100 H, Urine Ketones 15 H, Urine Occult Blood 50 H, Urine Nitrite Negative, Urine Bilirubin Negative, Urine Urobilinogen 4 H, Ur Leukocyte Esterase 500 H, Urine RBC 0-5 SEEN, Urine WBC >100 SEEN, Ur Squamous Epith Cells 0-5 SEEN, Urine Bacteria 2+, Urine Mucus 0 SEEN 01/01/25 06:58: WBC 6.6, RBC 4.89, Hgb 14.9, Hct 44.5, MCV 91.0, MCH 30.5, MCHC 33.5, RDW Std Deviation 45.2 H, RDW Coeff of Chastity 13.7, Plt Count 250, MPV 11.4, Immature Gran % (Auto) 0.300, Neut % (Auto) 63.8, Lymph % (Auto) 22.0, Falls % (Auto) 9.5, Eos % (Auto) 3.8, Baso % (Auto) 0.6, Absolute Neuts (auto) 4.2, Absolute Lymphs (auto) 1.46, Nucleated RBC % 0, Sodium 131 L, Potassium 4.2, Chloride 100, Carbon Dioxide 18.3 L, Anion Gap 13, BUN 17, Creatinine 0.72, Estim Creat Clear Calc 85.09, Est GFR (MDRD) Non-Af 91, BUN/Creatinine Ratio 23.8 H, Glucose 111 H, Calcium 9.2, Phosphorus 3.2, Magnesium 2.0, Total Bilirubin 0.94, AST 26, ALT 29, Alkaline Phosphatase 132 H, Total Protein 6.3, Albumin 3.3 L, Globulin 3.1, Albumin/Globulin Ratio 1.1 Micro: Microbiology 01/01/25 06:58 Stool Stool Occult Blood (AMOS) - Final Occult Blood Positive Physical Exam Const Constitutional Narrative: He is awake but, not what I would describe as alert. Tends to keep his eyes closed. Seems very fatigued. Falls asleep very easily.........I have to keep arousing him. HEENT Mouth: dry mucous membranes Resp Resp Narrative: Diminished respiratory effort but, better than yesterday. Not coughing. Not tachypneic. I was able to listen to the posterior lungs today and he is CTA. Cardio Cardio Narrative: Irregular irregular rhythm with controlled ventricular response on metoprolol. No gallop, no murmur. GI normal to inspection, nondistended, normoactive bowel sounds and soft to palpation GI Narrative: No guarding with palpation Extremity no calf tenderness General Extremity: Negative for edema Skin Rashes: no rashes Psych Psych Narrative: Very flat affect. Talks to people with eyes closed. Wanting to sleep most of the day. Poor appetite. Wants to get better but, feeling kind of hopeless. Not a lot of effort put forth with therapy. NO agitation. Assessment & Plan Assessment/Plan (1) Debility: (2) Intracerebral bleed due to trauma: QUALIFIERS: Encounter type: subsequent encounter Laterality: unspecified laterality Loss of consciousness presence/duration: without LOC Qualified Code(s): S06.360D - Traumatic hemorrhage of cerebrum, unspecified, without loss of consciousness, subsequent encounter (3) Mild cognitive impairment: (4) Acute left-sided weakness: (5) Paresthesias: (6) Depression: QUALIFIERS: Depression Type: reactive depression Qualified Code(s): F32.9 - Major depressive disorder, single episode, unspecified PLAN: Severe. Sx predated the intracerebral bleed. (7) Urinary incontinence: QUALIFIERS: Urinary Incontinence type: urinary incontinence without sensory awareness Qualified Code(s): N39.42 - Incontinence without sensory awareness (8) Sleep apnea: QUALIFIERS: Sleep apnea type: obstructive Qualified Code(s): G47.33 - Obstructive sleep apnea (adult) (pediatric) PLAN: Overnight trending pulse ox unremarkable. (9) Essential (primary) hypertension: (10) Paroxysmal atrial fibrillation: (11) Chronic anticoagulation: PLAN: On Hold for intracerebral bleed. (12) Venous insufficiency (chronic) (peripheral): (13) Peripheral neuropathy: QUALIFIERS: Peripheral neuropathy type: polyneuropathy, other Qualified Code(s): G62.89 - Other specified polyneuropathies (14) PAD (peripheral artery disease): (15) History of melanoma: (16) Hyponatremia: PLAN: due to SIADH? cerebral salt wasting? Dehydration? PLAN: Plan 1. Continue therapy 2. Continue Remeron 15 mg nightly 3. Consider a sleep study even though the overnight trending pulse ox showed nosignificant desaturation because of the daytime somnolence. . 4. BP mildly elevated, not requiring PRN Hydralazine. Continue to monitor. 5. Order a urine sodium and serum and urine osmolalities. I suspect the etiology of the daytime somnolence is depression and that this predated the intracerebral bleed. It is going to take 2 to 4 weeks for any significant improvement in depression with Remeron. Will consider adding Provigil to his current drug regimen to see if we can keep him more awake for therapy during the day. Charges/Coding Visit Charges Inpatient E&M: 02618 Subs Hosp L2 01/02/25 0815 <Electronically signed by Savanna Kelly DO> Savanna Kelly DO Cosigner Signature (if applicable): CC: ~ Signed [facility] Work Phone: [phone] Progress note [facility] Medical Records Department [address] [place] [address] Progress Note 01/01/25 1203 MR#: [id number] Acct: [id number] Name: SUNG YAÑEZ Rep #:[id number] : 1940 84 From: Savanna Kelly DO PCP: Dr. Briseida Vergara MD Status:ADM IN Location: [facility]-8 Subjective Subjective Day #2 Macrobid for acute cystitis....... more likely than not related to pure wick catheter used at the previous institution. Afebrile Blood pressure this morning is 116/65 with a heart rate of 93. Has not requiredany as needed hydralazine. Maintaining appropriate oxygen saturation on room air. I reviewed the overnight trending pulse ox and he had no desaturations. Oral fluid intake yesterday was +1440. Output is not accurate secondary to urinary incontinence. Appetite is poor. Weight is stable. Postvoid residuals x 3 are all less than 150. All lab drawn this morning was personally reviewed. White blood cell count is 6.6 and the hemoglobin today is 14.9. Platelets are within normal limits. Sodium is low at 131 today and the potassium is4.2. Bicarb is mildly decreasedat 18.3. BUN is 17 with a creatinine of 0.72 and a BUN/creatinine ratio of 23.8. GFR is 91. Calcium, phosphorus and magnesium are all within normal limits. LFTs are unremarkable. Tells me he slept pretty well last night. Denies chest pain, shortness of breath, palpitations, nausea/vomiting/abdominal pain, dysuria and calf tenderness. Denies headache and lightheadedness. I spoke to his on the phone. She tells me that he has been falling asleep a lot during the dayover the past couple months. He often walks without a device but, uses a cane when he is [facility] [place] [facility]. Appetite has been good at home. Has not been losing wt. She thinks he has been depressed. Has not used CPAP in >20 years. Has had some falls. Objective Data Objective Data Vital Signs: Vital Signs Temp Pulse Resp BP Pulse Ox O2 Del Method FiO2 98.8 F 93 17 116/65 94 Room Air 21 01/01/25 04:43 01/01/25 10:00 01/01/25 04:43 01/01/25 10:00 01/01/25 06:54 01/01/25 10:00 12/31/24 22:01 Oxygen Delivery Method Room Air Weight: 202 lb 7.984 oz Body Mass Index (BMI) 25.3 Intake & Output: Intake and Output for Last 24 Hours 12/30/24 12/31/24 01/01/25 23:59 23:59 23:59 Intake Total 200 / 200 1440 / 1440 220 / 220 Output Total 200 / 200 200 / 200 Balance 200 / 200 1240 / 1240 20 / 20 Lab / Micro Data 01/01/25 06:58 01/01/25 06:58 Labs: Laboratory Results - last 24 hr 12/31/24 15:00: Urine Color Yellow, Urine Clarity Turbid, Urine pH 6.0, Ur Specific [place] 1.020, Urine Protein 30 H, Urine Glucose (UA) 100 H, Urine Ketones 15 H, Urine Occult Blood 50 H, Urine Nitrite Negative, Urine Bilirubin Negative, Urine Urobilinogen 4 H, Ur Leukocyte Esterase 500 H, Urine RBC 0-5 SEEN, Urine WBC >100 SEEN, Ur Squamous Epith Cells 0-5 SEEN, Urine Bacteria 2+, Urine Mucus 0 SEEN 01/01/25 06:58: WBC 6.6, RBC 4.89, Hgb 14.9, Hct 44.5, MCV 91.0, MCH 30.5, MCHC 33.5, RDW Std Deviation 45.2 H, RDW Coeff of Chastity 13.7, Plt Count 250, MPV 11.4, Immature Gran % (Auto) 0.300, Neut % (Auto) 63.8, Lymph % (Auto) 22.0, Falls % (Auto) 9.5, Eos % (Auto) 3.8, Baso % (Auto) 0.6, Absolute Neuts (auto) 4.2, Absolute Lymphs (auto) 1.46, Nucleated RBC % 0, Sodium 131 L, Potassium 4.2, [id number], Carbon Dioxide 18.3 L, Anion Gap 13, BUN 17, Creatinine 0.72, Estim Creat Clear Calc 85.09, Est GFR (MDRD) Non-Af 91, BUN/Creatinine Ratio 23.8 H, Glucose 111 H, Calcium 9.2, Phosphorus 3.2, Magnesium 2.0, Total Bilirubin 0.94, AST 26, ALT 29, Alkaline Phosphatase 132 H, Total Protein 6.3, Albumin 3.3 L, Globulin 3.1, Albumin/Globulin Ratio 1.1 Micro: Microbiology 01/01/25 06:58 Stool Stool Occult Blood (AMOS) - Final Occult Blood Positive Physical Exam Const Constitutional Narrative: He is awake but, not what I would describe as alert. Tends to keep his eyes closed. Seems very fatigued. Falls asleep very easily.........I have to keep arousing him. HEENT Mouth: dry mucous membranes Resp Resp Narrative: Diminished respiratory effort but, better than yesterday. Not coughing. Not tachypneic. I was able to listen to the posterior lungs today and he is CTA. Cardio Cardio Narrative: Irregular irregular rhythm with controlled ventricular response on metoprolol. No gallop, no murmur. GI normal to inspection, nondistended, normoactive bowel sounds and soft to palpation GI Narrative: No guarding with palpation Extremity no calf tenderness General Extremity: Negative for edema Skin Rashes: no rashes Psych Psych Narrative: Very flat affect. Talks to people with eyes closed. Wanting to sleep most of the day. Poor appetite. Wants to get better but, feeling kind of hopeless. Not a lot of effort put forth with therapy. NO agitation. Assessment & Plan Assessment/Plan (1) Debility: (2) Intracerebral bleed due to trauma: QUALIFIERS: Encounter type: subsequent encounter Laterality: unspecified laterality Loss of consciousness presence/duration: without LOC Qualified Code(s): S06.360D - Traumatic hemorrhage of cerebrum, unspecified, without loss of consciousness, subsequent encounter (3) Mild cognitive impairment: (4) Acute left-sided weakness: (5) Paresthesias: (6) Depression: QUALIFIERS: Depression Type: reactive depression Qualified Code(s): F32.9 - Major depressive disorder, single episode, unspecified PLAN: Severe. Sx predated the intracerebral bleed. (7) Urinary incontinence: QUALIFIERS: Urinary Incontinence type: urinary incontinence without sensory awareness Qualified Code(s): N39.42 - Incontinence without sensory awareness (8) Sleep apnea: QUALIFIERS: Sleep apnea type: obstructive Qualified Code(s): G47.33 - Obstructive sleep apnea (adult) (pediatric) PLAN: Overnight trending pulse ox unremarkable. (9) Essential (primary) hypertension: (10) Paroxysmal atrial fibrillation: (11) Chronic anticoagulation: PLAN: On Hold for intracerebral bleed. (12) Venous insufficiency (chronic) (peripheral): (13) Peripheral neuropathy: QUALIFIERS: Peripheral neuropathy type: polyneuropathy, other Qualified Code(s): G62.89 - Other specified polyneuropathies (14) PAD (peripheral artery disease): (15) History of melanoma: (16) Hyponatremia: PLAN: due to SIADH? cerebral salt wasting? Dehydration? PLAN: Plan 1. Continue therapy 2. Continue Remeron 15 mg nightly 3. Consider a sleep study even though the overnight trending pulse ox showed nosignificant desaturation because of the daytime somnolence. . 4. BP mildly elevated, not requiring PRN Hydralazine. Continue to monitor. 5. Order a urine sodium and serum and urine osmolalities. I suspect the etiology of the daytime somnolence is depression and that this predated the intracerebral bleed. It is going to take 2 to 4 weeks for any significant improvement in depression with Remeron. Will consider adding Provigil to his current drug regimen to see if we can keep him more awake for therapy during the day. Charges/Coding Visit Charges Inpatient E&M: 28089 Subs Hosp L2 01/02/25 0815 Savanna Kelly DO Cosigner Signature (if applicable): CC: ~ Signed [facility]07-09-2025 History and physical note Author Savanna Kelly [facility] Note Date/Time January 01, 2025 12:03 pm [facility] Medical Records Department [address] [place] [address] Post Admission Physician Glendy 12/31/24 1753 MR#: [id number] Acct: [id number] Name: SUNG YAÑEZ Rep #:[id number] : 1940 84 From: Savanna Kelly DO PCP: Dr. Briseida Vergara MD Status:ADM IN Location: [place] [address] Admission Information Primary Diagnosis:: Debility secondary to intracerebral hemorrhage Status Changes from Prescreening?: No changes Identified Actual Problem List:: UTI, Skin Intergrity, Cognitve Impr/Memory Loss, Depression, Bladder Incontinence, Alteration in Nutrition, Mobility Impaired, Self Care Deficit, BP, Hypertension, Fluid Change-Dehydration and Alteration-Leisure Activ. Potential Problem List:: DVT, Bleeding, Infection, UTI, Aspiration, Falls, Skin Integrity and Depression Risk of Complications DVT: VANESSA Hose and Sequential Compression Device Bleeding: Monitor Lab Values, Nursing to Teach Precautions for anti-coagulation therapy., Wound, if applicable, to be assessed every shift. and Stroke patients assessed for lethargy or change in status. Infection: Clinical Staff to Monitor for S/S of infection: and S/S of infection include fever, redness, warmth, etc. Urinary Tract Infection: Monitor for frequency, burning, discomfort, or incontinence. and Nursing will obtain urine sample for urinalysis and C&S when ordered. Aspiration: Clinical staff will monitor for coughing, drooling, congestion., Speech will evaluate swallowing and dsyphasia. and Nursing will monitor patient swallowing during meals. Falls: Patient will be evaluated for Fall Precautions and Patient will be placedon Fall Precautions as indicated per protocol. Skin Breakdown: Nursing will assess skin daily using assessment tool. and Nursing will place on Skin Breakdown Precautions as indicated. Pain: Clinical staff will assess patient's pain level per protocol., Medicationswill be given, if needed, and the pain level reassessed. and Other methods: Massage, distraction, decrease stimulus, etc. used PRN. Plan of Care Patient requires physician specializing in physical medicine and rehab oversightto provide close medical supervision of rehab issues including: Pain Management,Sleep Problems, Bowel and Bladder, Medical and co-morbidity Management, DVT prophylaxis, Rehabilitation Leadership and Coordination of treatment team Patient needs Physical Therapy: For a minimum of 1 hour and At least 5 out of 7 days Patient needs Physical Therapy to improve:: Mobility, Strengthening, Transfers, Stretching, ROM, Endurance, Stairs, Gait and Balance Patient needs Occupational Therapy: For a minimum of 1 hour and At least 5 out of 7 days Patient needs Occupational Therapy to improve ADL's incl.: Eating, Grooming, Bathing, Dressing, Toileting, Toilet transfers, Community Reintegration, Higher functioning activities, Household tasks, Adaptive Equipment, Splinting and Otheractivities as determined Patient requires speech therapy: For a minimum of 1 hour and At least 5 out of 7days Patient requires speech therapy for: Swallowing, Cognition, Language Skills and Compensatory Strategies Patient requires 16/01 Rehabilitation Nursing for: Pain Issues, Identifying and preventing risk factors, Monitoring and reporting current medical conditions, Assisting with ambulation, transfer, and all ADL's, Teaching patients about disease process and medications, Family teaching, Providing safe environment, Bowel and Bladder Issues, Skin integrity and Medication Management Patient needs Core Analyst/ Case Management for: Discharge Planning, Arranging Home Equipment or Services and Family Interventions Patient needs Dietary and Nutrition Services for: Adequate Nutrition, Nutritional Supplements and Nutritional Education Goals Goals Patient will remain: free from falls Patient will perform eating at: MOD I level of assist. Patient will perform bed mobility at: MOD I level of assist. Patient will complete transfers from bed to chair at: - (Contact-guard assist) Patient will ambulate: - (20 feet with least restrictive device at contact-guardassist on various surfaces) Patient will complete upper body dressing at: - (Set up) Patient will complete lower body dressing at: - (Min assist with adaptive equipment as needed) Patient will complete toilet transfer at: - (Min assist) Patient will complete toileting at: - (Minimal assistance) Patient will perform bathing at: - (Upper body bathing at min assist and lower body bathing at min assist with adaptive equipment as needed) Patient will perform Tub/Shower transfer at: - (Min assist using DME as needed) Patient will complete grooming at: - (Supervision while seated at the sink) Patient will achieve: - (1 curb step with least restrictive device at min assist) Patient will have pain level of: of 3 or less Patient's skin will: remain intact Patient will receive: adequate nutrition. Discharge Planning Pt Prognosis for Sig. Practical Improv. w/in Reasonable Time: Good Estimated Length of stay (days): 28 Anticipated D/C Destination: TBD Was Preadmission Assessment Accurate?: Yes 01/01/25 1203 <Electronically signed by Savanna Kelly DO> Cosigner Signature (if applicable): CC: ~ Signed [facility] Work Phone: [phone] History and physical note [facility] Medical Records Department [address] [place] [address] Post Admission Physician Glendy 12/31/24 1753 MR#: [id number] Acct: [id number] Name: SUNG YAÑEZ Rep #:[id number] : 1940 84 From: Savanna Kelly DO PCP: Dr. Briseida Vergara MD Status:ADM IN Location: [place] [address] Admission Information Primary Diagnosis:: Debility secondary to intracerebral hemorrhage Status Changes from Prescreening?: No changes Identified Actual Problem List:: UTI, Skin Intergrity, Cognitve Impr/Memory Loss, Depression, Bladder Incontinence, Alteration in Nutrition, Mobility Impaired, Self Care Deficit, BP, Hypertension, Fluid Change-Dehydration and Alteration- Leisure Activ. Potential Problem List:: DVT, Bleeding, Infection, UTI, Aspiration, Falls, Skin Integrity and Depression Risk of Complications DVT: VANESSA Hose and Sequential Compression Device Bleeding: Monitor Lab Values, Nursing to Teach Precautions for anti-coagulation therapy., Wound, ifapplicable, to be assessed every shift. and Stroke patients assessed for lethargy or change in status. Infection: Clinical Staff to Monitor for S/S of infection: and S/S of infection include fever, redness, warmth, etc. Urinary Tract Infection: Monitor for frequency, burning, discomfort, or incontinence. and Nursing will obtain urine sample for urinalysis and C&S when ordered. Aspiration: Clinical staff will monitor for coughing, drooling, congestion., Speech will evaluate swallowing and dsyphasia. and Nursing will monitor patient swallowing during meals. Falls: Patient will be evaluated for Fall Precautions and Patient will be placedon Fall Precautionsas indicated per protocol. Skin Breakdown: Nursing will assess skin daily using assessment tool. and Nursing will place on Skin Breakdown Precautions as indicated. Pain: Clinical staff will assess patient's pain level per protocol., Medicationswill be given, if needed, and the pain level reassessed. and Other methods: Massage, distraction, decrease stimulus, etc. used PRN. Plan of Care Patient requires physician specializing in physical medicine and rehab oversightto provide close medical supervision of rehab issues including: Pain Management,Sleep Problems, Bowel and Bladder, Medical and co-morbidity Management, DVT prophylaxis, Rehabilitation Leadership and Coordination of treat ment team Patient needs Physical Therapy: For a minimum of 1 hour and At least 5 out of 7 days Patient needs Physical Therapy to improve:: Mobility, Strengthening, Transfers, Stretching, ROM, Endurance, Stairs, Gait and Balance Patient needs Occupational Therapy: For a minimum of 1 hour and At least 5 out of 7 days Patient needs Occupational Therapy to improve ADL's incl.: Eating, Grooming, Bathing, Dressing, Toileting, Toilet transfers, Community Reintegration, Higher functioning activities, Household tasks, Adaptive Equipment, Splinting and Otheractivities as determined Patient requires speech therapy: For a minimum of 1 hour and At least 5 out of 7days Patient requires speech therapy for: Swallowing, Cognition, Language Skills and Compensatory Strategies Patient requires 24/7 Rehabilitation Nursing for: Pain Issues, Identifying and preventing risk factors, Monitoring and reporting current medical conditions, Assisting with ambulation, transfer, and all ADL's, Teaching patients about disease process and medications, Family teaching, Providing safe environment, Bowel and Bladder Issues, Skin integrity and Medication Management Patient needs Core Analyst/ Case Management for: Discharge Planning, Arranging Home Equipment orServices and Family Interventions Patient needs Dietary and Nutrition Services for: Adequate Nutrition, Nutritional Supplements and Nutritional Education Goals Goals Patient will remain: free from falls Patient will perform eating at: MOD I level of assist. Patient will perform bed mobility at: MOD I level of assist. Patient will complete transfers from bed to chair at: - (Contact-guard assist) Patient will ambulate: - (20 feet with least restrictive device at contact- guardassist on various surfaces) Patient will complete upper body dressing at: - (Set up) Patient will complete lower body dressing at: - (Min assist with adaptive equipment as needed) Patient will complete toilet transfer at: - (Min assist) Patient will complete toileting at: - (Minimal assistance) Patient will perform bathing at: - (Upper body bathing at min assist and lower body bathing at min assist with adaptive equipment as needed) Patient will perform Tub/Shower transfer at: - (Min assist using DME as needed) Patient will complete grooming at: - (Supervision while seated at the sink) Patient will achieve: - (1 curb step with least restrictive device at min assist) Patient will have pain level of: of 3 or less Patient's skin will: remain intact Patient will receive: adequate nutrition. Discharge Planning Pt Prognosis for Sig. Practical Improv. w/in Reasonable Time: Good Estimated Length of stay (days): 28 Anticipated D/C Destination: TBD Was Preadmission Assessment Accurate?: Yes 01/01/25 1203 Cosigner Signature (if applicable): CC: ~ Signed [facility]07-09-2025 Telephone encounter Note* Telephone Encounter - Michelle Gale - 01/01/2025 11:05 AM EDT Appointment information faxed to [facility] @ [phone]. Confirmation of completion received. Michelle Gale [facility]07-09-2025 Miscellaneous Notes* Telephone Encounter - Michelle Gale - 01/01/2025 11:05 AM EDT Appointment information faxed to [facility] @ [phone]. Confirmation of completion received. Michelle Gale [facility] History and physical note Author Savanna Kelly [facility] Note Date/Time December 31, 2024 5:59p m [facility] Medical Records Department [address] [place] [address] History & Physical Exam 12/31/24 1218 MR#: [id number] Acct: [id number] Name: SUNG YAÑEZ Rep #:[id number] : 1940 84 From: Savanna Kelly DO PCP: Dr. Briseida Vergara MD Status:ADM IN Location: [id number] Savanna Kelly DO on 12/31/24 at 1759 Addendum UA had 0-5 RBCs per high-power field but greater than 100 WBCs per high-power field. There was 2+ bacteria. GFR on 12/23/2024 was 83. Urine culture ordered. Will start Macrobid 100 mg twice daily. 12/31/241758<Electronically signed by Savanna Kelly DO> Cosigner Signature (if applicable): cc: LESLEY Crane; Dr. Briseida Vergara MD; Dr. Savanna Kelly DO ~* Signed [facility] Date of Admission: 12/30/24 Date of Service: 12/31/24 Chief Complaint: Debility due to SDH HPI Narrative SUNG YAÑEZ, is a 84 YO M with a PMH of AF, chronic anticoagulation with Xarelto, BPH, degenerative disc disease, diverticulosis, tobacco dependence in remission, CHRISTOPHER, hiatal hernia, hypertension, and history of melanoma who presented to the ED at [facility] on 12/23/2024 complaining of tingling and weakness on his left side. He related that he had a fall (he struck his head and had a scalp abrasion) on 12/20/2024 and was doing fine until he woke up at 2 AM on the with tingling and numbness on the L side.......it increased in the timeit took him to get to the ED by squad. Noncontrast brain CT showed a subdural hematoma on the right measuring 0.5 cm in depth in the temporal region. There was hemorrhage extending along the falx and tentorium on the right with a masslike component posteriorly measuring 5 cm x 2 cm. There was a midline shiftat the anterior aspect of 0.4 cm towards the left. CTA of the head and neck showed an ascending aorta which was dilated to 4.1 cm. There was no significantstenosis or occlusion identified in the carotid or vertebral system. NIHSS was 2 for weakness in the left upper extremity and left lower extremity. He was given Kcentra in the emergency department. He also received labetalol for hypertension and Keppra for seizure prophylaxis. He was transferred to [facility] for intracerebral bleed. Neurosurgery was consulted. a 20 minute EEG was negative for seizure activity. Continuous EEG also showed no seizure activity. It did show right cerebral hemisphere dysfunction. CT head was repeated at [facility] And showed a slight increase in size of extensive acute right parafalcine subdural hemorrhage measuring up to 19 mm in thickness. There was a slight increase in the subdural hemorrhage along the right cerebral convexity measuring 6 mm, up from 4 mm at [facility]. There wasmass effect on the right cerebral convexity with approximately 4 mm of midline shift to the left. This was unchanged. CT brain was repeated on 12/24/2024 and showed a slight decreased size of the parasagittal component of the right subdural hemorrhage with minimal midline shift. There was a stable appearing small left cerebral subdural hemorrhage and right cerebellar subdural hemorrhage. MRI of the brain on December 26 showed no definite acute CVA. There wasincreased FLAIR signal in the medial right frontal and parietal cortex adjacent to the parafalcine subdural and subarachnoid hemorrhage suspicious for cortical edema. There was a stable appearance of multiple extra-axial hemorrhages along the medial right greater than left falx, overlying the right convexity as well as in the posterior fossa and along the tentorium. He did not require any surgical intervention while at [facility]. He was transferred to the acute inpt rehabunit at [facility] on 12/30/24 for 3 hours of therapy daily to restore function/independence at or near his level prior to the fall on 12/20/24. Afebrile Blood pressure has ranged from 140/92 158/86 since arrival on rehab. Heart rateis within normal limits. Maintaining appropriate oxygen saturation on room air. He has been incontinent of urine and stool. [facility] Medical History (Updated 12/31/24 @ 17:[address] Savanna Kelly DO) PAD (peripheral artery disease) Tobacco dependence in remission Chronic anticoagulation [facility] current use of amiodarone Peripheral neuropathy History of melanoma Ambulates with cane History of edema History of echocardiogram History of stress test History of atrial fibrillation Arthritis Prostate disease History of hiatal hernia Former smoker CPAP (continuous positive airway pressure) dependence Sleep apnea Cardiology follow-up encounter Urinary tract infection with hematuria Urinary frequency Bilateral lower extremity edema Phlebitis of superficial vein of right lower extremity Lumbar and sacral osteoarthritis Lumbar disc displacement without myelopathy Lumbar degenerative disc disease Chronic prostatitis Acute cystitis with hematuria Essential (primary) hypertension Back pain Paroxysmal atrial fibrillation BPH (benign prostatic hyperplasia) Home Medications ?Medication ?Instructions ?Recorded ?Last Taken ?Type lisinopril 20 mg tablet 20 mg PO DAILY blood pressur e #90 06/20/24 12/30/24 Rx tabs acetaminophen 500 mg tablet 1,000 mg PO Q8 pain Unknown History cyclobenzaprine 5 mg tablet 5 mg PO TID PRN muscle spa sm 12/30/24 Unknown History magnesium glycinate 100 mg (as 200 mg PO DAILY supplem ent 12/30/24 12/30/24 History glycinate) tablet (Mag Glycinate) metoprolol succinate 50 mg 50 mg PO DAILY heart rate 0 12/30/24 12/30/24 History tablet,extended release 24 hr oxycodone 5 mg tablet 5 mg PO Q4H PRN pain 1-10 12/30/24 History Allergy/AdvReac Type Severity Reaction Status Date / Time No Known Allergies Allergy Verified 12/23/24 07:16 Family History Mother Myocardial infarction Father Colon cancer Sister Myocardial infarction Surgical History (Updated 12/31/24 @ 16:[address] Savanna Kelly DO) H/O Mohs micrographic surgery for skin cancer History of cardiac catheterization History of transurethral resection of prostate History of eye surgery History of lumbar discectomy History of prostatectomy History of left heart catheterization (2011) Social History household members: spouse Smoking Status: Former smoker how long ago did patient quit smokin03/02/1987 alcohol intake: current alcohol intake frequency: a few times a week substance use type: does not use caffeine: No ROS Constitutional Constitutional: Reports poor appetite and snoring; Denies anorexia, change in weight, chills, fatigue, fever(s), headache(s), night sweats or weakness Eyes Eyes: Denies blurry vision, change in vision, eye pain or loss of vision ENT HEENT: Denies abnormal hearing, dysphagia, headache(s), hearing loss, nasal congestion or sore throat Cardiovascular Cardiovascular: Denies chest pain, dyspnea on exertion, edema, lightheadedness, orthopnea, palpitations, paroxysmal nocturnal dyspnea or syncope Respiratory/Chest Respiratory/Chest: Denies cough, dyspnea, shortness of breath at rest, shortnessof breath with exertion or wheezing Gastrointestinal Gastrointestinal: Reports constipation; Denies abdominal pain, diarrhea, dyspepsia, hematemesis, hematochezia, nausea or vomiting Genitourinary Genitourinary: Reports urinary incontinence and urinary urgency; Denies dysuria,hematuria, nocturia, urinary frequency or urinary hesitancy Musculoskeletal Musculoskeletal: Reports back pain, difficulty walking and muscle weakness; Denies joint pain, joint swelling or neck pain Integumentary Integumentary: Denies jaundice, pruritus or rash Neurologic Neurologic: Reports disequilibrium, focal weakness and paresthesias; Denies confusion, dizziness, headache(s), seizures or tremor(s) Psychiatric Psychiatric: Reports change in appetite, cognitive impairment, depression and difficulty concentrating; Denies anxiety, homicidal ideation, suicidal ideation or visual hallucinations Endocrine Endocrinology: Denies change in body appearance, polydipsia or polyuria Hematologic/Lymphatic Hematologic/Lymphatic: Reports easy bleeding and easy bruising; Denies lymphadenopathy Allergic/Immunologic Allergic/Immunologic: Denies rhinitis, eczemia or asthma Vital Signs Vital Signs Vital Signs: 12/30/24 18:40 12/30/24 19:04 12/30/24 19:16 Temperature 97.8 F Temperature Source Temporal Pulse Rate 73 Pulse Strength Normal (2+) Respiratory Rate 16 Respiratory Effort Normal Non-Labored Respiratory Depth Normal Respiratory Pattern Normal Blood Pressure 149/91 H Blood Pressure Mean 110 Blood Pressure Source Monitor Blood Pressure Position Semi-Fowlers Blood Pressure Location Right Arm Pulse Ox 94 Oxygen Delivery Method Room Air Room Air 12/30/24 22:58 12/31/24 06:00 12/31/24 08:35 Temperature 98.2 F 98.0 F Temperature Source Temporal Oral Pulse Rate 73 85 Pulse Strength Respiratory Rate 16 16 Respiratory Effort Respiratory Depth Respiratory Pattern Blood Pressure 140/90 H 158/86 H Blood Pressure Mean 106 110 Blood Pressure Source Monitor Monitor Blood Pressure Position Semi-Fowlers Semi-Fowlers Blood Pressure Location Right Arm Right Arm Pulse Ox 96 94 94 Oxygen Delivery Method Room Air Room Air Room Air 12/31/24 10:00 12/31/24 10:00 12/31/24 10:00 Temperature Temperature Source Pulse Rate 88 88 Pulse Strength Normal (2+) Respiratory Rate Respiratory Effort Respiratory Depth Respiratory Pattern Blood Pressure 148/88 H 148/88 H Blood Pressure Mean 108 Blood Pressure Source Monitor Blood Pressure Position Semi-Fowlers Blood Pressure Location Right Arm Pulse Ox Oxygen Delivery Method 12/31/24 10:00 Temperature Temperature Source Pulse Rate Pulse Strength Respiratory Rate Respiratory Effort Normal Non-Labored Respiratory Depth Normal Respiratory Pattern Normal Blood Pressure Blood Pressure Mean Blood Pressure Source Blood Pressure Position Blood Pressure Location Pulse Ox Oxygen Delivery Method Room Air Weight Weight: 202 lb 8 oz Body Mass Index (BMI) 25.3 Indicators for Scoring Admitted with or Primary Diagnosis of CVA/Stroke: No (multiple SDH's and SAH with foacl neurologic deficits. ) Hx of CVA/Stroke: No Modified Trimble Score MRS Score at time of Evaluation: 4-Moderate/severe disability NIHSS NIHSS 1a. Level of Consciousness: 1 - Not alert; Arousable by minor stimuli to obey, answer & respond (It was the end of the day and he may just be tired. ) 1b. LOC Questions: 0 - Answers BOTH questions correctly 1c. LOC Commands: 0 - Performs BOTH tasks correctly 2. Best Gaze: 0 - Normal 3. Visual: 0 - No visual loss 4. Facial Palsy: 0 - Normal symmetrical movements 5a. Left Arm: 2 - Some effort against gravity; (able to lift the forearm off thebed and grasp with the left hand. Can not lift the elbow off the bed. ) 5b. Right Arm: 0 - No drift; arm holds 90 (or 45) degrees for full 10 seconds ([id number]) 6b. Right Le - Some effort against gravity; 7. Limb Ataxia: 0 - Absent (unable to adequately test secondary to weakness. ) 8. Sensory: 1 - [id number] sensory loss; (Left face and left UE. He has some numbness in the R neck following excision of a cyst that is chronic. ) 9. Best Language: 0 - No aphasia; normal 10. Dysarthria: 1 = [id number] dysarthria; (soft voice does not project well ) 11. Extinction and Inattention: 0 - No abnormality Total: 7 Stroke Questions Stroke Team Activated: No Physical Exam Const Constitutional Narrative: Very sleepy........I had some difficulty keeping him awake for the exam but, it was done at the end of the day and he may just be fatigued. General Appearance: cooperative, ill appearing and other appears stated age HEENT HEENT Narrative: Very dry mucous membranes no evidence of thrush Kiana on the hard palate Eyes PERRL, EOMs intact bilaterally, conjunctivae normal and no scleral icterus Eyes Narrative: No discharge from the eyes. No visual field cuts. Denies any change in his vision. General Eye: normal light reflex Neck supple, No nodes and no carotid bruits General: trachea midline Chest Chest: symmetrical chest wall rise Resp normal respiratory effort Resp Narrative: diminished BS's........decreased effort. No conversational dyspnea. Not tachypneic. No wheezing or crackles anteriorly. I did not have help to set himup in the bed to listen posteriorly. Will re-examine in the AM when I have someone to help with positioning. Effort and Inspection: decreased respiratory effort; Negative for labored, grunting or actively coughing Cardio no murmurs, no rub and no gallops Cardio Narrative: Irregular irregular rhythm with controlled ventricular response. Known history of atrial fibrillation. Denies chest pain and also denies palpitations and lightheadedness. GI normal to inspection, nondistended, normoactive bowel sounds, soft to palpation and non-tender GI Narrative: No guarding with palpation. Narrative: Apparently had a pure wick catheter at the previous hospital. UA done today is positive for protein and ketones. It is positive for leukocyte esterase. WBC and RBC and bacteria still pending. Back/Spine no CVA tenderness Extremity no pedal edema Extremity Narrative: Superficial varicosities in both lower extremities. No ankle edema. No calf pain. Skin General Skin Exam: Negative for jaundice Rashes: no rashes Hair: general thinning Neuro Neuro Narrative: He is somewhat drowsy but may just be fatigued because it is the end of the day. He arouses easily. Hard time keeping him awake at times. He is oriented x 3. Pupils are equal round reactive to light and accommodation. Extraocular musclesare intact. No vertigo. Smooth pursuit. Tongue protrudes on the midline. Thepalate elevates symmetrically. Poor shoulder shrug on the left. He is able to lift his left forearm off the bed but cannot lift the elbow off the bed. He hasa fair hand grasp on the left. He is right-hand dominant. The right upper extremity has no drift. 5/5 strength in the right upper extremity. He is able to lift the right leg off the bed but it falls to the bed prior to 5 seconds elapsing. He has some plantarflexion and dorsiflexion in the right foot. He had no movement in the left lower extremity. Unable to check for ataxia secondary to severe weakness in the left upper extremity and left lower extremity. He has decreased sensation in the left upper extremity and the left face. He also has some decrease sensation in the right neck which is secondary to a prior surgical procedure to remove a cyst. No extinction. No visual fieldcuts. Psych Psych Narrative: Depressed affect and admits to feeling depressed. Not currently on an antidepressant. Feeling somewhat helpless and hopeless. Denies hallucinations. No suicidal ideation. Appearance: grossly normal and appropriate Activity / Motor Behavior: psychomotor slowing and other Keeps his eyes closed most of the time I am talking with him unless I ask him to look at me. Speech: slow and soft Mood & Affect: depressed Assessment & Plan Assessment/Plan (1) Debility: (2) Intracerebral bleed due to trauma: QUALIFIERS: Encounter type: subsequent encounter Laterality: unspecified laterality Loss of consciousness presence/duration: without LOC Qualified Code(s): S06.360D - Traumatic hemorrhage of cerebrum, unspecified, without loss of consciousness, subsequent encounter PLAN: Multiple SDH's and SAH. No surgical intervention required. Left hemiparesis due to large R parafalcine SDH. MRI negative for stroke X 2 (12/23 and 12/25/24) (3) Mild cognitive impairment: PLAN: BCAT 42/50. (4) Acute left-sided weakness: PLAN: LLE>LUE. some L side neglect. (5) Paresthesias: PLAN: Chronic paresthesias in the BL LE's more likely than not related to chronic back pain/hx of discectomy and DDD/DJD LS spine. New paresthesias of the left upper extremity and left face due to subdural hematoma. (6) Depression: QUALIFIERS: Depression Type: reactive depression Qualified Code(s): F32.9 - Major depressive disorder, single episode, unspecified (7) Urinary incontinence: QUALIFIERS: Urinary Incontinence type: urinary incontinence without sensory awareness Qualified Code(s): N39.42 - Incontinence without sensory awareness (8) Sleep apnea: QUALIFIERS: Sleep apnea type: obstructive Qualified Code(s): G47.33 - Obstructive sleep apnea (adult) (pediatric) PLAN: Has been prescribed CPAP in the past but is noncompliant. Does not wear oxygen at night. (9) Essential (primary) hypertension: (10) Paroxysmal atrial fibrillation: (11) Chronic anticoagulation: PLAN: Chronic anticoagulation for paroxysmal atrial fibrillation on Xarelto. Anticoagulation is on hold due to intracerebral bleed. (12) Venous insufficiency (chronic) (peripheral): (13) Peripheral neuropathy: QUALIFIERS: Peripheral neuropathy type: polyneuropathy, other Qualified Code(s): G62.89 - Other specified polyneuropathies (14) PAD (peripheral artery disease): PLAN: Left greater than right lower extremity. (15) History of melanoma: PLAN: Plan PLAN PT for gait stability OT for ADL's ST for evaluation Analgesics as needed Bowel protocol Fall precautions Assess for Anxiety/Depression -he admits to feeling depressed. Feeling somewhathopeless. Agreeable to starting an antidepressant. Poor appetite. Will startRemeron tonight. GI prophylaxis -not necessary at this time. He denies nausea/vomiting/epigastric pain/heartburn. Denies history of peptic ulcer disease. DVT prophylaxis with SCDs and VANESSA lund. Follow up with PCP, neurology, cardiology following DC from [facility] AM lab including CMP, CBC, Mag and Phos - ordered. Will need to talk with neurology or neurosurgery to Discuss when safe to start DVT prophylaxis. Check the stool for occult blood Check an overnight trending pulse ox Avoid sedating medications as much as possible Blood pressure is mildly elevated now. Hydralazine has been added as needed forblood pressure greater than 170 systolic or 85 diastolic. Goal for BP is less than 140/80. Charges/Coding Visit Charges Inpatient E&M: 39822 Init Hosp L3 12/31/24 2517 <Electronically signed by Savanna Kelly DO> Cosigner Signature (if applicable): CC: LESLEY Crane; Dr. Briseida Vergara MD; Dr. Savanna Kelly DO~ Signed [facility] Work Phone: [phone] History and physical note [facility] Medical Records Department [address] [place] [id number] History & Physical Exam 12/31/24 1218 MR#: [id number] Acct: [id number] Name: SUNG YAÑEZ Rep #:[id number] : 1940 84 From: Savanna Kelly DO PCP: Dr. Briseida Vergara MD Status:ADM IN Location: [place] [address] Savanna Kelly DO on 12/31/24 at 1759 Addendum UA had 0-5 RBCs per high-power field but greater than 100 WBCs per high-power field. There was 2+ bacteria. GFR on 12/23/2024 was 83. Urine culture ordered. Will start Macrobid 100 mg twice daily. 12/31/241758 Cosigner Signature (if applicable): cc: LESLEY Crane; Dr. Briseida Vergara MD; Dr. Savanna Kelly DO ~* Signed HPI - General General Date of Admission: 12/30/24 Date of Service: 12/31/24 Chief Complaint: Debility due to SDH HPI Narrative SUNG YAÑEZ, is a 84 YO M with a PMH of AF, chronic anticoagulation with Xarelto, BPH, degenerative disc disease, diverticulosis, tobacco dependence in remission, CHRISTOPHER, hiatal hernia, hypertension, and history of melanoma who presented to the ED at [facility] on 12/23/2024 complaining of tingling andweakness on his left side. He related that he had a fall (he struck his head and had a scalp abrasion) on 12/20/2024 and was doing fine until he woke up at 2 AM on the with tingling and numbness on the L side.......it increased in the timeit took him to get to the ED by squad. Noncontrast brain CT showed a subdural hematoma on the right measuring 0.5 cm in depth in the temporal region. There was hemorrhage extending along the falx and tentorium on the right with a masslike component posteriorly measuring 5 cm x 2 cm. There was a midline shiftat the anterior aspect of 0.4 cm towards the left. CTA of the head and neck showed an ascending aorta which was dilated to 4.1 cm. There was no significantstenosis or occlusion identified in the carotid or vertebral system. NIHSS was 2 for weakne ss in the left upper extremity and left lower extremity. He was given Kcentra in the emergency department. He also received labetalol for hypertension and Keppra for seizure prophylaxis. He was transferred to [facility] for intracerebral bleed. Neurosurgery was consulted. a 20 minute EEG was negative for seizure activity. Continuous EEG also showed no seizure activity. It did marbin w right cerebral hemisphere dysfunction. CT head was repeated at [facility] And showed a slight increase in size of extensive acute right parafalcine subdural hemorrhage measuring up to 19 mm in thickness. There was a slight increase in the subdural hemorrhage along the right cerebral convexity measuring 6 mm, up from 4 mm at [facility]. There wasmass effect on the right cerebral convexity with approximately 4 mm of midline shift to the left. This was unchanged. CT brain was repeated on 12/24/2024 and showed a slight decreased size of the parasagittal component of the right subdural hemorrhage with minimal midline shift. There was a stable appearing small left cerebral subdural hemorrhage and right cerebellar subdural hemorrhage. MRI of the brain on December 26 showed no definite acute CVA. There wasincreased FLAIR signal in the medial right frontal and parietal cortex adjacent to the parafalcine subdural and subarachnoid hemorrhage suspicious for cortical edema. There wasa stable appearance of multiple extra-axial hemorrhages along the medial right greater than left falx, overlying the right convexity as well as in the posterior fossa and along the tentorium. He did not require any surgical intervention while at [facility]. He was transferred to the acute inpt rehabunit at [facility] on 12/30/24 for 3 hours of therapy daily to restore function/independence at or near his level p rior to the fall on 12/20/24. Afebrile Blood pressure has ranged from 140/92 158/86 since arrival on rehab. Heart rateis within normal limits. Maintaining appropriate oxygen saturation on room air. He has been incontinent of urine and stool. [facility] Medical History (Updated 12/31/24 @ 17:[address] 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 Peripheral neuropathy History of melanoma Ambulates with cane History of edema History of echocardiogram History of stress test History of atrial fibrillation Arthritis Prostate disease History of hiatal hernia Former smoker CPAP (continuous positive airway pressure) dependence Sleep apnea Cardiology follow-up encounter Urinary tract infection with hematuria Urinary frequency Bilateral lower extremity edema Phlebitis of superficial vein of right lower extremity Lumbar and sacral osteoarthritis Lumbar disc displacement without myelopathy Lumbar degenerative disc disease Chronic prostatitis Acute cystitis with hematuria Essential (primary) hypertension Back pain Paroxysmal atrial fibrillation BPH (benign prostatic hyperplasia) Home Medications ?Medication ?Instructions ?Recorded ?Last Taken ?Type lisinopril 20 mg tablet 20 mg PO DAILY blood pressur e #90 06/20/24 12/30/24 Rx tabs acetaminophen 500 mg tablet 1,000 mg PO Q8 pain Unknown History cyclobenzaprine 5 mg tablet 5 mg PO TID PRN muscle spa sm 12/30/24 Unknown History magnesium glycinate 100 mg (as 200 mg PO DAILY supplem ent 12/30/24 12/30/24 History glycinate) tablet (Mag Glycinate) metoprolol succinate 50 mg 50 mg PO DAILY heart rate 0 12/30/24 12/30/24 History tablet,extended release 24 hr oxycodone 5 mg tablet 5 mg PO Q4H PRN pain 1-10 12/30/24 History Allergy/AdvReac Type Severity Reaction Status Date / Time No Known Allergies Allergy Verified 12/23/24 07:16 Family History Mother Myocardial infarction Father Colon cancer Sister Myocardial infarction Surgical History (Updated 12/31/24 @ 16:[address] Savanna Kelly DO) H/O Mohs micrographic surgery for skin cancer History of cardiac catheterization History of transurethral resection of prostate History of eye surgery History of lumbar discectomy History of prostatectomy History of left heart catheterization (2011) Social History household members: spouse Smoking Status: Former smoker how long ago did patient quit smokin03/02/1987 alcohol intake: current alcohol intake frequency: a few times a week substance use type: does not use caffeine: No ROS Constitutional Constitutional: Reports poor appetite and snoring; Denies anorexia, change in weight, chills, fatigue, fever(s), headache(s), night sweats or weakness Eyes Eyes: Denies blurry vision, change in vision, eye pain or loss of vision ENT HEENT: Denies abnormal hearing, dysphagia, headache(s), hearing loss, nasal congestion or sore throat Cardiovascular Cardiovascular: Denies chest pain, dyspnea on exertion, edema, lightheadedness, orthopnea, palpitations, paroxysmal nocturnal dyspnea or syncope Respiratory/Chest Respiratory/Chest: Denies cough, dyspnea, shortness of breath at rest, shortnessof breath with exertion or wheezing Gastrointestinal Gastrointestinal: Reports constipation; Denies abdominal pain, diarrhea, dyspepsia, hematemesis, hematochezia, nausea or vomiting Genitourinary Genitourinary: Reports urinary incontinence and urinary urgency; Denies dysuria,hematuria, nocturia, urinary frequency or urinary hesitancy Musculoskeletal Musculoskeletal: Reports back pain, difficulty walking and muscle weakness; Denies joint pain, joint swelling or neck pain Integumentary Integumentary: Denies jaundice, pruritus or rash Neurologic Neurologic: Reports disequilibrium, focal weakness and paresthesias; Denies confusion, dizziness, headache(s), seizures or tremor(s) Psychiatric Psychiatric: Reports change in appetite, cognitive impairment, depression and difficulty concentrating; Denies anxiety, homicidal ideation, suicidal ideation or visual hallucinations Endocrine Endocrinology: Denies change in body appearance, polydipsia or polyuria Hematologic/Lymphatic Hematologic/Lymphatic: Reports easy bleeding and easy bruising; Denies lymphadenopathy Allergic/Immunologic Allergic/Immunologic: Denies rhinitis, eczemia or asthma Vital Signs Vital Signs Vital Signs: 12/30/24 18:40 12/30/24 19:04 12/30/24 19:16 Temperature 97.8 F Temperature Source Temporal Pulse Rate 73 Pulse Strength Normal (2+) Respiratory Rate 16 Respiratory Effort Normal Non-Labored Respiratory Depth Normal Respiratory Pattern Normal Blood Pressure 149/91 H Blood Pressure Mean 110 Blood Pressure Source Monitor Blood Pressure Position Semi-Fowlers Blood Pressure Location Right Arm Pulse Ox 94 Oxygen Delivery Method Room Air Room Air 12/30/24 22:58 12/31/24 06:00 12/31/24 08:35 Temperature 98.2 F 98.0 F Temperature Source Temporal Oral Pulse Rate 73 85 Pulse Strength Respiratory Rate 16 16 Respiratory Effort Respiratory Depth Respiratory Pattern Blood Pressure 140/90 H 158/86 H Blood Pressure Mean 106 110 Blood Pressure Source Monitor Monitor Blood Pressure Position Semi-Fowlers Semi-Fowlers Blood Pressure Location Right Arm Right Arm Pulse Ox 96 94 94 Oxygen Delivery Method Room Air Room Air Room Air 12/31/24 10:12/31/24 10:00 12/31/24 10:00 Temperature Temperature Source Pulse Rate 88 88 Pulse Strength Normal (2+) Respiratory Rate Respiratory Effort Respiratory Depth Respiratory Pattern Blood Pressure 148/88 H 148/88 H Blood Pressure Mean 108 Blood Pressure Source Monitor Blood Pressure Position Semi-Fowlers Blood Pressure Location Right Arm Pulse Ox Oxygen Delivery Method 12/31/24 10:00 Temperature Temperature Source Pulse Rate Pulse Strength Respiratory Rate Respiratory Effort Normal Non-Labored Respiratory Depth Normal Respiratory Pattern Normal Blood Pressure Blood Pressure Mean Blood Pressure Source Blood Pressure Position Blood Pressure Location Pulse Ox Oxygen Delivery Method Room Air Weight Weight: 202 lb 8 oz Body Mass Index (BMI) 25.3 Indicators for Scoring Admitted with or Primary Diagnosis of CVA/Stroke: No (multiple SDH's and SAH with foacl neurologic deficits. ) Hx of CVA/Stroke: No Modified Trimble Score MRS Score at time of Evaluation: 4-Moderate/severe disability NIHSS NIHSS 1a. Level of Consciousness: 1 - Not alert; Arousable by minor stimuli to obey, answer & respond(It was the end of the day and he may just be tired. ) 1b. LOC Questions: 0 - Answers BOTH questions correctly 1c. LOC Commands: 0 - Performs BOTH tasks correctly 2. Best Gaze: 0 - Normal 3. Visual: 0 - No visual loss 4. Facial Palsy: 0 - Normal symmetrical movements 5a. Left Arm: 2 - Some effort against gravity; (able to lift the forearm off thebed and grasp with the left hand. Can not lift the elbow off the bed. ) 5b. Right Arm: 0 - No drift; arm holds 90 (or 45) degrees for full 10 seconds ([id number]) 6b. Right Le - Some effort against gravity; 7. Limb Ataxia: 0 - Absent (unable to adequately test secondary to weakness. ) 8. Sensory: 1 - [id number]-im-[id number] sensory loss; (Left face and left UE. He has some numbness in the R neck following excision of a cyst that is chronic. ) 9. Best Language: 0 - No aphasia; normal 10. Dysarthria: 1 = [id number] dysarthria; (soft voice does not project well ) 11. Extinction and Inattention: 0 - No abnormality Total: 7 Stroke Questions Stroke Team Activated: No Physical Exam Const Constitutional Narrative: Very sleepy........I had some difficulty keeping him awake for the exam but, [facility] and [facility] may just be fat[facility]ued. General Appearance: cooperative, ill appearing and other appears stated age HEENT HEENT Narrative: Very dry mucous membranes no evidence of thrush Kiana on the hard palate Eyes PERRL, EOMs intact bilaterally, conjunctivae normal and no scleral icterus Eyes Narrative: No discharge from the eyes. No visual field cuts. Denies any change in his vision. General Eye: normal light reflex Neck supple, No nodes and no carotid bruits General: trachea midline Chest Chest: symmetrical chest wall rise Resp normal respiratory effort Resp Narrative: diminished BS's........decreased effort. No conversational dyspnea. Not tachypneic. No wheezing or crackles anteriorly. I did not have help to set himup in the bed to listen posteriorly. Will re-examine in the AM when I have someone to help with positioning. Effort and Inspection: decreased respiratory effort; Negative for labored, grunting or actively coughing Cardio no murmurs, no rub and no gallops Cardio Narrative: Irregular irregular rhythm with controlled ventricular response. Known history of atrial fibrillation. Denies chest pain and also denies palpitations and lightheadedness. GI normal to inspection, nondistended, normoactive bowel sounds, soft to palpation and non-tender GI Narrative: No guarding with palpation. Narrative: Apparently had a pure wick catheter at the previous hospital. UA done today is positive for proteinand ketones. It is positive for leukocyte esterase. WBC and RBC and bacteria still pending. Back/Spine no CVA tenderness Extremity no pedal edema Extremity Narrative: Superficial varicosities in both lower extremities. No ankle edema. No calf pain. Skin General Skin Exam: Negative for jaundice Rashes: no rashes Hair: general thinning Neuro Neuro Narrative: He is somewhat drowsy but may just be fatigued because it is the end of the day. He arouses easily.Hard time keeping him awake at times. He is oriented x 3. Pupils are equal round reactive to light and accommodation. Extraocular musclesare intact. No vertigo. Smooth pursuit. Tongue protrudes on the midline. Thepalate elevates symmetrically. Poor shoulder shrug on the left. He is able to lift hisleft forearm off the bed but cannot lift the elbow off the bed. He hasa fair hand grasp on the left. He is right-hand dominant. The right upper extremity has no drift. 5/5 strength in the right upperextremity. He is able to lift the right leg off the bed but it falls to the bed prior to 5 seconds e lapsing. He has some plantarflexion and dorsiflexion in the right foot. He had no movement in the left lower extremity. Unable to check for ataxia secondary to severe weakness in the left upper extremity and left lower extremity. He has decreased sensation in the left upper extremity and the left face. He also has some decrease sensation in the right neck which is secondary to a prior surgical procedure to remove a cyst. No extinction. No visual fieldcuts. Psych Psych Narrative: Depressed affect and admits to feeling depressed. Not currently on an antidepressant. Feeling somewhat helpless and hopeless. Denies hallucinations. No suicidal ideation. Appearance: grossly normal and appropriate Activity / Motor Behavior: psychomotor slowing and other Keeps his eyes closed most of the time I am talking with him unless I ask him to look at me. Speech: slow and soft Mood & Affect: depressed Assessment & Plan Assessment/Plan (1) Debility: (2) Intracerebral bleed due to trauma: QUALIFIERS: Encounter type: subsequent encounter Laterality: unspecified laterality Loss of consciousness presence/duration: without LOC Qualified Code(s): S06.360D - Traumatic hemorrhage of cerebrum, unspecified, without loss of consciousness, subsequent encounter PLAN: Multiple SDH's and SAH. No surgical intervention required. Left hemiparesis due to large R parafalcine SDH. MRI negative for stroke X 2 (12/23 and 12/25/24) (3) Mild cognitive impairment: PLAN: BCAT 42/50. (4) Acute left-sided weakness: PLAN: LLE>LUE. some L side neglect. (5) Paresthesias: PLAN: Chronic paresthesias in the BL LE's more likely than not related to chronic back pain/hx of discectomy and DDD/DJD LS spine. New paresthesias of the left upper extremity and left face due to subdural hematoma. (6) Depression: QUALIFIERS: Depression Type: reactive depression Qualified Code(s): F32.9 - Major depressive disorder, single episode, unspecified (7) Urinary incontinence: QUALIFIERS: Urinary Incontinence type: urinary incontinence without sensory awareness Qualified Code(s): N39.42 - Incontinence without sensory awareness (8) Sleep apnea: QUALIFIERS: Sleep apnea type: obstructive Qualified Code(s): G47.33 - Obstructive sleep apnea (adult) (pediatric) PLAN: Has been prescribed CPAP in the past but is noncompliant. Does not wear oxygen at night. (9) Essential (primary) hypertension: (10) Paroxysmal atrial fibrillation: (11) Chronic anticoagulation: PLAN: Chronic anticoagulation for paroxysmal atrial fibrillation on Xarelto. Anticoagulation is on hold due to intracerebral bleed. (12) Venous insufficiency (chronic) (peripheral): (13) Peripheral neuropathy: QUALIFIERS: Peripheral neuropathy type: polyneuropathy, other Qualified Code(s): G62.89 - Other specified polyneuropathies (14) PAD (peripheral artery disease): PLAN: Left greater than right lower extremity. (15) History of melanoma: PLAN: Plan PLAN PT for gait stability OT for ADL's ST for evaluation Analgesics as needed Bowel protocol Fall precautions Assess for Anxiety/Depression -he admits to feeling depressed. Feeling somewhathopeless. Agreeable to starting an antidepressant. Poor appetite. Will startRemeron tonight. GI prophylaxis -not necessary at this time. He denies nausea/vomiting/epigastric pain/heartburn. Denies history of peptic ulcer disease. DVT prophylaxis with SCDs and VANESSA lund. Follow up with PCP, neurology, cardiology following DC from [facility] AM lab including CMP, CBC, Mag and Phos - ordered. Will need to talk with neurology or neurosurgery to Discuss when safe to start DVT prophylaxis. Check the stool for occult blood Check an overnight trending pulse ox Avoid sedating medications as much as possible Blood pressure is mildly elevated now. Hydralazine has been added as needed forblood pressure greater than 170 systolic or 85 diastolic. Goal for BP is less than 140/80. Charges/Coding Visit Charges Inpatient E&M: 23410 Init Hosp L3 12/31/24 3161 Cosigner Signature (if applicable): CC: LESLEY Crane; Dr. Briseida Vergara MD; Dr. Savanna Kelly, DO~ Signed [facility]07-08-2025 [facility] Medical Records Department [address] [place] [address] History Physical Exam 12/31/24 1218 MR#: [id number] Acct: [id number] Name: SUNG YAÑEZ Rep #: [id number] : 1940 84 From: Savanna Kelly DO PCP: Dr. Briseida Vergara MD Status:ADM IN Location: [place] [address] Savanna Kelly DO on 12/31/24 at 1759 Addendum UA had 0-5 RBCs per high-power field but greater than 100 WBCs per high-power field. There was 2+ bacteria. GFR on 12/23/2024 was 83. Urine culture ordered. Will start Macrobid 100 mg twice daily. 12/31/241758 Cosigner Signature (if applicable): cc: LESLEY Crane; Dr. Briseida Vergara MD; Dr. Savanna Kelly DO * Signed HPI - General General Date of Admission: 12/30/24 Date of Service: 12/31/24 Chief Complaint: Debility due to SDH HPI Narrative SUNG YAÑEZ, is a 84 YO M with a PMH of AF, chronic anticoagulation with Xarelto, BPH, degenerative disc disease, diverticulosis, tobacco dependence in remission, CHRISTOPHER, hiatal hernia, hypertension, and history of melanoma who presented to the ED at [facility] on 12/23/2024 complaining of tingling and weakness on his left side. He related that he had a fall (he struck his head and had a scalp abrasion) on 12/20/2024 and was doing fine until he woke up at 2 AM on the with tingling and numbness on the L side.......it increased in the time it took him to get to the ED by squad. Noncontrast brain CT showed a subdural hematoma on the right measuring 0.5 cm in depth in the temporal region. There was hemorrhage extending along the falx and tentorium on the right with a masslike component posteriorly measuring 5 cm x 2 cm. There was a midline shift at the anterior aspect of 0.4 cm towards the left. CTA of the head and neck showed an ascending aorta which was dilated to 4.1 cm. There was no significant stenosis or occlusion identified in the carotid or vertebral system. NIHSS was 2 for weakness in the left upper extremity and left lower extremity. He was given Kcentra in the emergency department. He also received labetalol for hypertension and Keppra for seizure prophylaxis. He was transferred to [facility] for intracerebral bleed. Neurosurgery was consulted. a 20 minute EEG was negative for seizure activity. Continuous EEG also showed no seizure activity. It did show right cerebral hemisphere dysfunction. CT head was repeated at [facility] And showed a slight increase in size of extensive acute right parafalcine subdural hemorrhage measuring up to 19 mm in thickness. There was a slight increase in the subdural hemorrhage along the right cerebral convexity measuring 6 mm, up from 4 mm at [facility]. There was mass effect on the right cerebral convexity with approximately 4 mm of midline shift to the left. This was unchanged. CT brain was repeated on 12/24/2024 and showed a slight decreased size of the parasagittal component of the right subdural hemorrhage with minimal midline shift. There was a stable appearing small left cerebral subdural hemorrhage and right cerebellar subdural hemorrhage. MRI of the brain on December 26 showed no definite acute CVA. There was increased FLAIR signal in the medial right frontal and parietal cortex adjacent to the parafalcine subdural and subarachnoid hemorrhage suspicious for cortical edema. There was a stable appearance of multiple extra-axial hemorrhages along the medial right greater than left falx, overlying the right convexity as well as in the posterior fossa and along the tentorium. He did not require any surgical intervention while at [facility]. He was transferred to the acute inpt rehab unit at [facility] on 12/30/24 for 3 hours of therapy daily to restore function/independence at or near his level prior to the fall on 12/20/24. Afebrile Blood pressure has ranged from 140/92 158/86 since arrival on rehab. Heart rate is within normal limits. Maintaining appropriate oxygen saturation on room air. He has been incontinent of urine and stool. [facility] Medical History (Updated 12/31/24 @ 17:[address] 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 Peripheral neuropathy History of melanoma Ambulates with cane History of edema History of echocardiogram History of stress test History of atrial fibrillation Arthritis Prostate disease History of hiatal hernia Former smoker CPAP (continuous positive airway pressure) dependence Sleep apnea Cardiology follow-up encounter Urinary tract infection with hematuria Urinary frequency Bilateral lower extremity edema Phlebitis of superficial vein of right lower extremity Lumbar and sacral osteoarthritis Lumbar disc displacement without myelopathy Lumbar degenera (more content not included)...[facility] 12-30-2024 NoteHNO ID: [id number] Author: TAM AMAYA RN Service: Care Management Author Type: Registered Nurse Type: Care Mgt Progress Note Filed: 12/30/2024 11:24 Note Text: CARE MANAGEMENT DISCHARGE NOTE SERVICE DATE: December 30, 2024 SERVICE TIME: 11:23 AM Admission Date: 12/23/2024 LOS: 7 days Discharge Arrangement Discharge Arrangement: Acute Rehabilitation Facility Services Arranged Medical Services: Other: See Comment Caregiver Assessment Caregiver is ready, willing and able to meet the patient's needs as recommended by the inter-professional team: Yes Name of Caregiver: [facility] Transportation Arrangements Transportation Arrangements: Ambulance Transportation Agency and Phone #:: [facility] ( [facility] ) [phone] / [phone] Date of Trip: 12/30/24 Time of Trip: 1600 Type of Service: BLS Non-emergency Was transportation financial coverage discussed with family?: Patient Shotblaster Location: [facility] Destination: [facility] Acute Rehab Financial Care Management Responsibility: None Additional Information: Patient discharging to [facility] via [facility] today at 1600. No auth or 7000 needed. Patient at bedside and agreeable to plan. Transport packet next to patient chart and RN to call report. SIGNATURE: Tam Amaya RN PATIENT NAME: Sung Yañez DATE: December 30, 2024 TIME: 11:23 [facility]07-07-2025 NoteHNO ID: [id number] Author: KATI CHAUHAN MD Service: General Surgery Author Type: Physician Type: Progress Notes Filed: 12/30/2024 10:21 Note Text: Trauma Surgery Progress Note SERVICE DATE: 12/30/2024 Trauma Service Pager: For questions or concerns Mon-Fri 6a-5p please page [phone]. After 5pm and on Weekends and Holidays, please page [phone] if in ICU or [phone] if on RNF. SUBJECTIVE: NAEON. On RNF. Pain well controlled. Denies any headaches or vision changes. Denies any worsening of weakness of LUE. OBJECTIVE: Vitals: Temp (24hrs), Av.8 ?C (98.3 ?F), Min:36.2 ?C (97.1 ?F), Max:37.2 ?C (98.9 ?F) BP 171/100 Pulse 69 Temp 36.7 ?C (98 ?F) (Axillary) Resp 16 Ht 190.5 cm (6' 3) Wt 98.5 kg (217 lb 2.5 oz) SpO2 95% BMI 27.14 kg/m? O2 Therapy: Room Air IANDO: Date 12/29/24 07 - 12/30/24 0659 12/30/24 07 - 12/31/24 0659 Shift 4108-2244 0556-1243 3385-9901 24 Hour Total 7706-1728 0853-5193 1429-5751 24 Hour Total INTAKE PO 270 270 PO 270 270 Supplements (mL) 0 0 Shift Total 270 270 OUTPUT Urine 667 376 2144 2300 Urine Incontinence/Not Saved 1 x 2 x 3 x Output ( External Collection Device 12/24/24 1500 [facility]) 170 677 3396 2300 # of BMs Stool Incontinence 1 x 1 x Number of BMs 2 x 2 x 1 x 5 x Shift Total 591 579 4693 2300 Weight (kg) 97.8 98.5 98.5 98.5 98.5 98.5 98.5 98.5 MEDICATIONS: Current Facility-Administered Medications Medication Dose Route Frequency cyclobenzaprine 5 mg tab(s) (FLEXERIL) 5 mg ORAL TID PRN heparin 5,000 Units injection 5,000 Units SUBCUTANEOUS q 8 H NaCl 0.9% iv flush bag 20 mL INTRAVENOUS PRN lisinopril 20 mg tab(s) (ZESTRIL) 20 mg ORAL DAILY acetaminophen 975 mg tab(s) (TYLENOL) 975 mg ORAL QID metoprolol succinate ER 50 mg tab(s) (TOPROL XL) 50 mg ORAL DAILY ondansetron 4 mg tab(s) (ZOFRAN) 4 mg ORAL q 6 H PRN Or ondansetron (PF) 4 mg injection (ZOFRAN) 4 mg INTRAVENOUS q 6 H PRN oxyCODONE IR 2.5-5 mg tab(s) (ROXICODONE) 2.5-5 mg ORAL q 4 H PRN senna-docusate 8.6-50 mg 1 tablet (SENNA-S) 1 tablet ORAL BID Labs: Recent Labs 12/30/24 0259 12/29/24 0315 12/28/24313 NA 133* 136 132* K 4.0 4.1 4.1 CHLOR 100 100 98 CO2 23 23 23 BUN 14 13 10 CREAT 0.69* 0.76 0.66* GLUC 94 96 95 ANION 10 13 11 CA 8.6 9.0 8.6 MG -- -- 1.9 P -- -- 3.6 WBC 5.20 5.22 5.19 HB 14.3 14.3 14.1 HCT 42.0 42.3 41.4 PLT 224 234 207 PHYSICAL EXAM: GENERAL: No distress. Resting comfortably. NEURO: no focal neurologic deficits. Sensation grossly intact. HEENT: Normocephalic. Atraumatic. EOMI. LUNGS: Unlabored breathing. Equal excursion bilaterally. CARDIAC: Regular rate. Good perfusion throughout. ABDOMEN: Soft, non-tender, non-distended. No rebound or guarding. EXTREMITIES: bilat hand ceo and co founder strength in tact (more weak on LUE but unchanged from prior), moves bilat feet. Motor and sensory intact SKIN: No obvious jaundice or pallor. ASSESSMENT AND PLAN: Assessment Active Hospital Problems Diagnosis Date Noted SDH (subdural hematoma) (HCC) 12/23/2024 Assessment AND Plan Note: CTH revealed acute right parafalcine SDH. S/p fall with posterior head trauma Kcentra for reversal of xarelto at OSH. NSGY following for possible evac Acute left hemiparesis (HCC) 12/25/2024 Assessment AND Plan Note: Initially presented with LLE weakness O/N (7/2) developed LUE weakness Etiology unclear NSGY does not feel LUE weakness is r/t SDH ?stroke in the setting of afib with OAC held 2/2 SDH ?seizure with todds paralysis ? Musculoskeletal given pt reports remote shoulder injury but denies pain at this time Plan: Repeat MRI brain to r/o stroke- pending rCTH in am of 12/26 No EEG SZ on 12/26 BEM check Continue to hold AC/AP Keppra 1000mg BID for 14 doses Hold DVT PPX chemo- may start 48hrs post stable scan Trauma 12/23/2024 Fall 12/23/2024 Current use of buttermaker anticoagulation 12/23/2024 Scalp abrasion 12/23/2024 Neuropathy 12/23/2024 Left leg weakness 12/23/2024 Primary hypertension 12/23/2024 Chronic Chronic atrial fibrillation (HCC) 12/23/2024 Chronic 84 year old male PMH afib (on xarelto), CHRISTOPHER, HTN, melanoma, sp mechanical ground level fall on 12/20 originally presented to [facility] Kcentra given prior to transfer, transferred to [facility] 12/23 for SDH. Imaging performed: - CTHN, CTAHN, CT CAP, MRI brain - XR bilateral shoulders Traumatic Injuries: - large right parafalcine SDH -mild right to left shift of midline Hospital Course: - 12/20 presented to [place] ED following ground level fall, acute SDH noted in CTA H/N, Kcentra and Keppra given -12/23 transferred to [facility] -12/24 repeat CTH - slight decreased size of parasagittal component of right subdural hemorrhage, stable appearing left cerebral subdural hemorrhage and right cerebellar subdural hemorrhage - 12/25 repeat CTH- stable - 12/26 repeat CTH- slight interval decrease in the R parasagittal/ (more content not included)...[facility]07-06-2025 NoteHNO ID: [id number] Author: MEAGHAN WALSH, LINH Service: Care Management Author Type: Registered Nurse Type: Care Mgt Progress Note Filed: 12/29/2024 13:05 Note Text: CARE MANAGEMENT PROGRESS NOTE SERVICE DATE: 12/29/2024 SERVICE TIME: 1:04 PM LOS: 6 days Needs Prior to Discharge: Accepting Facility, Bed Availability, Discharge Transportation IMM Follow Up Copy Given: No Reason: Acute Rehab Met with patient / Pat at bedside explained cm role and discussed dsch plan. Emotional support provided. Dc plan: [facility] is foc and aware referral placed but awaiting acceptance. Have sent additional message re medical stability and anticipate dsch next 24 hrs. Pt will not need auth just acceptance and typically contacts cm since cannot respond in careport. SIGNATURE: Meaghan Walsh RN PATIENT NAME: Sung Yañez DATE: December 29, 2024 TIME: 1:03 [facility]07-06-2025 NoteHNO ID: [id number] Author: KATI CHAUHAN MD Service: General Surgery Author Type: Physician Type: Progress Notes Filed: 12/29/2024 15:28 Note Text: Trauma Surgery Progress Note SERVICE DATE: 12/29/2024 Trauma Service Pager: For questions or concerns Mon-Fri 6a-5p please page [phone]. After 5pm and on Weekends and Holidays, please page [phone] if in ICU or [phone] if on [facility]. SUBJECTIVE: NAEON. Pain well controlled. Denies any headaches or vision changes. Denies any worsening of weakness of LUE. Transferred to [facility] 12/28. OBJECTIVE: Vitals: Temp (24hrs), Av.9 ?C (98.4 ?F), Min:36.7 ?C (98 ?F), Max:37.1 ?C (98.8 ?F) BP 158/90 Pulse 86 Temp 36.7 ?C (98 ?F) (Oral) Resp 18 Ht 190.5 cm (6' 3) Wt 97.8 kg (215 lb 9.8 oz) SpO2 94% BMI 26.95 kg/m? O2 Therapy: Room Air IANDO: Date 12/28/24699 - 12/29/24 0612/29/24699 - 12/30/24 0659 Shift 1178-7617 2978-1271 3875-3239 24 Hour Total 6763-3793 7835-2315 3044-6947 24 Hour Total INTAKE PO 200 200 400 PO 200 200 400 IV 300 300 Volume (mL) (magnesium sulfate iv piggyback in sterile water 2 g 50 mL) 50 50 Volume (mL) (sodium phosphate 30 mmol in D5W 250 mL) 250 250 Shift Total 500 200 700 OUTPUT Urine 100 1000 1100 Urine Not Saved. 1 x 1 x Output ( External Collection Device 12/24/24 1500 [facility]) 100 1000 1100 # of BMs Stool Incontinence 1 x 1 x Number of BMs 1 x 1 x Shift Total 100 1000 1100 Weight (kg) 97.8 97.8 97.8 97.8 97.8 97.8 97.8 97.8 MEDICATIONS: Current Facility-Administered Medications Medication Dose Route Frequency cyclobenzaprine 5 mg tab(s) (FLEXERIL) 5 mg ORAL TID PRN heparin 5,000 Units injection 5,000 Units SUBCUTANEOUS q 8 H NaCl 0.9% iv flush bag 20 mL INTRAVENOUS PRN lisinopril 20 mg tab(s) (ZESTRIL) 20 mg ORAL DAILY acetaminophen 975 mg tab(s) (TYLENOL) 975 mg ORAL QID metoprolol succinate ER 50 mg tab(s) (TOPROL XL) 50 mg ORAL DAILY ondansetron 4 mg tab(s) (ZOFRAN) 4 mg ORAL q 6 H PRN Or ondansetron (PF) 4 mg injection (ZOFRAN) 4 mg INTRAVENOUS q 6 H PRN oxyCODONE IR 2.5-5 mg tab(s) (ROXICODONE) 2.5-5 mg ORAL q 4 H PRN senna-docusate 8.6-50 mg 1 tablet (SENNA-S) 1 tablet ORAL BID levETIRAcetam 1,000 mg tab(s) (KEPPRA) 1,000 mg ORAL BID Labs: Recent Labs 12/29/24 0315 12/28/24 0314 12/27/24 0244 NA 136 132* 134* K 4.1 4.1 4.2 CHLOR 100 98 99 CO2 23 23 26 BUN 13 10 10 CREAT 0.76 0.66* 0.75 GLUC 96 95 107* ANION 13 11 9 CA 9.0 8.6 8.9 MG -- 1.9 2.1 P -- 3.6 3.9 WBC 5.22 5.19 6.06 HB 14.3 14.1 14.2 HCT 42.3 41.4 42.3 PLT 234 207 224 PHYSICAL EXAM: GENERAL: No distress. Resting comfortably. NEURO: no focal neurologic deficits. Sensation grossly intact. HEENT: Normocephalic. Atraumatic. EOMI. LUNGS: Unlabored breathing. Equal excursion bilaterally. CARDIAC: Regular rate. Good perfusion throughout. ABDOMEN: Soft, non-tender, non-distended. No rebound or guarding. EXTREMITIES: bilat hand ceo and co founder strength in tact (more weak on LUE but unchanged from prior), moves bilat feet. Motor and sensory intact SKIN: No obvious jaundice or pallor. ASSESSMENT AND PLAN: Assessment Active Hospital Problems Diagnosis Date Noted SDH (subdural hematoma) (HCC) 12/23/2024 Assessment AND Plan Note: CTH revealed acute right parafalcine SDH. S/p fall with posterior head trauma Kcentra for reversal of xarelto at OSH. NSGY following for possible evac Acute left hemiparesis (HCC) 12/25/2024 Assessment AND Plan Note: Initially presented with LLE weakness O/N (12/25) developed LUE weakness Etiology unclear NSGY does not feel LUE weakness is r/t SDH ?stroke in the setting of afib with OAC held 07/28 SDH ?seizure with todds paralysis ? Musculoskeletal given pt reports remote shoulder injury but denies pain at this time Plan: Repeat MRI brain to r/o stroke- pending rCTH in am of 12/26 No EEG SZ on 12/26 BEM check Continue to hold AC/AP Keppra 1000mg BID for 14 doses Hold DVT PPX chemo- may start 48hrs post stable scan Trauma 12/23/2024 Fall 12/23/2024 Current use of buttermaker anticoagulation 12/23/2024 Scalp abrasion 12/23/2024 Neuropathy 12/23/2024 Left leg weakness 12/23/2024 Primary hypertension 12/23/2024 Chronic Chronic atrial fibrillation (HCC) 12/23/2024 Chronic 84 year old male PMH afib (on xarelto), CHRISTOPHER, HTN, melanoma, sp mechanical ground level fall on 12/20 originally presented to [facility] Kcentra given prior to transfer, transferred to [facility] 12/23 for SDH. Imaging performed: - CTHN, CTAHN, CT CAP, MRI brain - XR bilateral shoulders Traumatic Injuries: - large right parafalcine SDH -mild right to left shift of midline Hospital Course: - 12/20 presented to [place] ED following ground level fall, acute SDH noted in CTA H/N, Kcentra and Keppra given -12/23 transferred to [facility] -12/24 repeat CTH - slight decreased size of parasagittal component of right subdural hemorrhage, stable rashawn (more content not included)...[facility]07-05-2025 NoteHNO ID: [id number] Author: KATI CHAUHAN MD Service: General Surgery Author Type: Physician Type: Progress Notes Filed: 12/28/2024 13:09 Note Text: Trauma Surgery Progress Note SERVICE DATE: 12/28/2024 Trauma Service Pager: For questions or concerns Mon-Fri 6a-5p please page [phone]. After 5pm and on Weekends and Holidays, please page [phone] if in ICU or [phone] if on RNF. SUBJECTIVE: No acute overnight events. Resting comfortably. Squeezes hands and wiggles feet bilat. Has no concerns. OBJECTIVE: Vitals: Temp (24hrs), Av.9 ?C (98.4 ?F), Min:36.7 ?C (98.1 ?F), Max:37.3 ?C (99.1 ?F) BP 147/105 Pulse 78 Temp 36.7 ?C (98.1 ?F) (Oral) Resp 12 Ht 190.5 cm (6' 3) Wt 97.8 kg (215 lb 9.8 oz) SpO2 94% BMI 26.95 kg/m? O2 Therapy: Room Air IANDO: Date 12/27/24699 - 12/28/2465812/28/24699 - 12/29/24 0659 Shift 4406-3141 5559-2305 7156-5199 24 Hour Total 6351-4652 0892-2315 7496-8378 24 Hour Total INTAKE PO 740 240 980 PO 740 240 980 IV 450 100 550 Volume (mL) (calcium gluconate iv piggyback 2 g in NaCl (iso-osmotic) 100 mL) 200 100 300 Volume (mL) (sodium phosphate 30 mmol in D5W 250 mL) 250 250 Shift Total 1190 545 781 2153 OUTPUT Urine 950 1200 2150 Output ( External Collection Device 12/24/24 1500 [facility]) 950 1200 2150 # of BMs Stool Incontinence 1 x 1 x 2 x Number of BMs 1 x 1 x 2 x Shift Total 950 1200 2150 Weight (kg) 97.3 97.3 97.8 97.8 97.8 97.8 97.8 97.8 MEDICATIONS: Current Facility-Administered Medications Medication Dose Route Frequency cyclobenzaprine 5 mg tab(s) (FLEXERIL) 5 mg ORAL TID PRN heparin 5,000 Units injection 5,000 Units SUBCUTANEOUS q 8 H phosphorus 250 mg tab(s) (K PHOS NEUTRAL) 250 mg ORAL PC and HS potassium chloride 20-40 mEq oral powder (KLOR-CON) 20-40 mEq ORAL/FEEDING TUBE PRN Or potassium chloride iv piggyback 20 mEq/100 mL 20 mEq INTRAVENOUS PRN sodium phosphate 30 mmol in D5W 250 mL 30 mmol INTRAVENOUS PRN(NO DISPENSE) Or sodium phosphate 45 mmol in D5W 250 mL 45 mmol INTRAVENOUS PRN(NO DISPENSE) magnesium sulfate iv piggyback in sterile water 2 g 50 mL 2 g INTRAVENOUS PRN calcium gluconate iv piggyback 2 g in NaCl (iso-osmotic) 100 mL 2 g INTRAVENOUS PRN(NO DISPENSE) NaCl 0.9% iv flush bag 20 mL INTRAVENOUS PRN lisinopril 20 mg tab(s) (ZESTRIL) 20 mg ORAL DAILY acetaminophen 975 mg tab(s) (TYLENOL) 975 mg ORAL QID metoprolol succinate ER 50 mg tab(s) (TOPROL XL) 50 mg ORAL DAILY ondansetron 4 mg tab(s) (ZOFRAN) 4 mg ORAL q 6 H PRN Or ondansetron (PF) 4 mg injection (ZOFRAN) 4 mg INTRAVENOUS q 6 H PRN oxyCODONE IR 2.5-5 mg tab(s) (ROXICODONE) 2.5-5 mg ORAL q 4 H PRN senna-docusate 8.6-50 mg 1 tablet (SENNA-S) 1 tablet ORAL BID levETIRAcetam 1,000 mg tab(s) (KEPPRA) 1,000 mg ORAL BID Labs: Recent Labs 12/28/24 0314 12/27/24 0244 NA 132* 134* K 4.1 4.2 CHLOR 98 99 CO2 23 26 BUN 10 10 CREAT 0.66* 0.75 GLUC 95 107* ANION 11 9 CA 8.6 8.9 MG 1.9 2.1 P 3.6 3.9 WBC 5.19 6.06 HB 14.1 14.2 HCT 41.4 42.3 PLT 207 224 PHYSICAL EXAM: GENERAL: No distress. Resting comfortably. NEURO: no focal neurologic deficits. Sensation grossly intact. HEENT: Normocephalic. Atraumatic. EOMI. LUNGS: Unlabored breathing. Equal excursion bilaterally. CARDIAC: Regular rate. Good perfusion throughout. ABDOMEN: Soft, non-tender, non-distended. No rebound or guarding. EXTREMITIES: bilat hand ceo and co founder strength in tact, moves bilat feet SKIN: No obvious jaundice or pallor. ASSESSMENT AND PLAN: Assessment Active Hospital Problems Diagnosis Date Noted SDH (subdural hematoma) (HCC) 12/23/2024 Assessment AND Plan Note: CTH revealed acute right parafalcine SDH. S/p fall with posterior head trauma Kcentra for reversal of xarelto at OSH. NSGY following for possible evac Acute left hemiparesis (HCC) 12/25/2024 Assessment AND Plan Note: Initially presented with LLE weakness O/N (12/25) developed LUE weakness Etiology unclear NSGY does not feel LUE weakness is r/t SDH ?stroke in the setting of afib with OAC held /2 SDH ?seizure with todds paralysis ? Musculoskeletal given pt reports remote shoulder injury but denies pain at this time Plan: [facility] No [facility] SZ on 12/26 BEM check Continue to hold AC/AP Keppra 1000mg BID for 14 doses Hold DVT PPX chemo- may start 48hrs post stable scan Trauma 12/23/2024 Fall 12/23/2024 Current use of buttermaker anticoagulation 12/23/2024 Scalp abrasion 12/23/2024 Neuropathy 12/23/2024 Left leg weakness 12/23/2024 Primary hypertension 12/23/2024 Chronic Chronic atrial fibrillation (HCC) 12/23/2024 Chronic 84 year old male PMH afib (on xarelto), CHRISTOPHER, HTN, melanoma, sp mechanical ground level fall on 12/20 originally presented to [facility] Kcentra given prior to transfer, transferred to [facility] 12/23 for SDH. Imaging performed: - CTHN, CTAHN, CT CAP (more content not included)...[facility] 12-27-2024 NoteHNO ID: [id number] Author: KATI CHAUHAN MD Service: General Surgery Author Type: Physician Type: Progress Notes Filed: 12/27/2024 10:30 Note Text: Trauma Surgery Progress Note SERVICE DATE: 12/27/2024 Trauma Service Pager: For questions or concerns Mon-Fri 6a-5p please page [phone]. After 5pm and on Weekends and Holidays, please page [phone] if in ICU or [phone] if on RNF. SUBJECTIVE: No acute overnight events. Pt with no complaints at this time. Drowsy. Continues to have weakness on LUE and LLL. Pain well controlled OBJECTIVE: Vitals: Temp (24hrs), Av.9 ?C (98.4 ?F), Min:36.7 ?C (98.1 ?F), Max:37 ?C (98.6 ?F) BP 144/101 Pulse 73 Temp 36.9 ?C (98.4 ?F) (Oral) Resp 12 Ht 190.5 cm (6' 3) Wt 97.3 kg (214 lb 8.1 oz) SpO2 95% BMI 26.81 kg/m? O2 Therapy: Room Air IANDO: Date 12/26/24699 - 12/27/24 0659 12/27/24 07 - 12/28/24 0659 Shift 4832-2270 9354-8917 8725-7303 24 Hour Total 2583-6366 0666-1129 6082-8170 24 Hour Total INTAKE PO 414 722 3655 PO 397 481 1844 Shift Total 534 025 8368 OUTPUT Urine 705 815 2052 2650 Urine Incontinence/Not Saved 1 x 1 x Output ( External Collection Device 12/24/24 1500 [facility]) 182 569 1429 2650 Shift Total 602 935 8727 2650 Weight (kg) 99.4 99.4 97.3 97.3 97.3 97.3 97.3 97.3 MEDICATIONS: Current Facility-Administered Medications Medication Dose Route Frequency cyclobenzaprine 5 mg tab(s) (FLEXERIL) 5 mg ORAL TID PRN heparin 5,000 Units injection 5,000 Units SUBCUTANEOUS q 8 H phosphorus 250 mg tab(s) (K PHOS NEUTRAL) 250 mg ORAL PC and HS potassium chloride 20-40 mEq oral powder (KLOR-CON) 20-40 mEq ORAL/FEEDING TUBE PRN Or potassium chloride iv piggyback 20 mEq/100 mL 20 mEq INTRAVENOUS PRN sodium phosphate 30 mmol in D5W 250 mL 30 mmol INTRAVENOUS PRN(NO DISPENSE) Or sodium phosphate 45 mmol in D5W 250 mL 45 mmol INTRAVENOUS PRN(NO DISPENSE) magnesium sulfate iv piggyback in sterile water 2 g 50 mL 2 g INTRAVENOUS PRN calcium gluconate iv piggyback 2 g in NaCl (iso-osmotic) 100 mL 2 g INTRAVENOUS PRN(NO DISPENSE) NaCl 0.9% iv flush bag 20 mL INTRAVENOUS PRN lisinopril 20 mg tab(s) (ZESTRIL) 20 mg ORAL DAILY acetaminophen 975 mg tab(s) (TYLENOL) 975 mg ORAL QID metoprolol succinate ER 50 mg tab(s) (TOPROL XL) 50 mg ORAL DAILY ondansetron 4 mg tab(s) (ZOFRAN) 4 mg ORAL q 6 H PRN Or ondansetron (PF) 4 mg injection (ZOFRAN) 4 mg INTRAVENOUS q 6 H PRN oxyCODONE IR 2.5-5 mg tab(s) (ROXICODONE) 2.5-5 mg ORAL q 4 H PRN senna-docusate 8.6-50 mg 1 tablet (SENNA-S) 1 tablet ORAL BID levETIRAcetam 1,000 mg tab(s) (KEPPRA) 1,000 mg ORAL BID Labs: Recent Labs 12/27/24 0244 12/26/24 0337 NA 134* 131* K 4.2 4.3 CHLOR 99 98 CO2 26 23 BUN 10 11 CREAT 0.75 0.70* GLUC 107* 95 ANION 9 10 CA 8.9 8.7 MG 2.1 1.7 P 3.9 2.9 WBC 6.06 6.33 HB 14.2 13.9 HCT 42.3 41.9 PLT 224 194 PHYSICAL EXAM: GENERAL: Alert. No distress. Resting comfortably. NEURO: focal neurologic deficits. Sensation grossly intact. HEENT: Normocephalic. Atraumatic. EOMI. LUNGS: Unlabored breathing. Equal excursion bilaterally. CARDIAC: Regular rate. Good perfusion throughout. ABDOMEN: Soft, non-tender, non-distended. No rebound or guarding. EXTREMITIES: decreased LUE ceo and co founder strength, rle strength intact, decreased strength and sensation to LLE SKIN: No obvious jaundice or pallor. ASSESSMENT AND PLAN: Assessment Active Hospital Problems Diagnosis Date Noted SDH (subdural hematoma) (HCC) 12/23/2024 Assessment AND Plan Note: CTH revealed acute right parafalcine SDH. S/p fall with posterior head trauma Kcentra for reversal of xarelto at OSH. NSGY following for possible evac Acute left hemiparesis (HCC) 12/25/2024 Assessment AND Plan Note: Initially presented with LLE weakness O/N (12/25) developed LUE weakness Etiology unclear NSGY does not feel LUE weakness is r/t SDH ?stroke in the setting of afib with OAC held 2/2 SDH ?seizure with todds paralysis ? Musculoskeletal given pt reports remote shoulder injury but denies pain at this time Plan: Repeat MRI brain to r/o stroke- pending rCTH in am of 12/26 No EEG SZ on 12/26 BEM check Continue to hold AC/AP Keppra 1000mg BID for 14 doses Hold DVT PPX chemo- may start 48hrs post stable scan Trauma 12/23/2024 Fall 12/23/2024 Current use of buttermaker anticoagulation 12/23/2024 Scalp abrasion 12/23/2024 Neuropathy 12/23/2024 Left leg weakness 12/23/2024 Primary hypertension 12/23/2024 Chronic Chronic atrial fibrillation (HCC) 12/23/2024 Chronic 84 year old male PMH afib (on xarelto), CHRISTOPHER, HTN, melanoma, sp mechanical ground level fall on 12/20 originally presented to [facility] Kcentra given prior to transfer, transferred to [facility] 12/23 for SDH. Imaging performed: - CTHN, CTAHN, CT CAP, MRI brain - XR bilateral shoulders Traumatic Injuries: - large right parafalcine SDH -mild right to left shift of mi (more content not included)...[facility]07-04-2025 NoteHNO ID: [id number] Author: SHAN RUBIN PA-C Service: Neurosurgery Author Type: Physician Matrix Plater Type: Progress Notes Filed: 12/27/2024 09:02 Note Text: Neurosurgery Progress Note SERVICE DATE: 12/27/2024 SUBJECTIVE: Reports worsening left sided spasms today compared to yesterday but denies any changes in left sided weakness compared to yesterday OBJECTIVE: Vitals: Temp (24hrs), Av.8 ?C (98.3 ?F), Min:36.7 ?C (98.1 ?F), Max:37 ?C (98.6 ?F) BP 144/101 Pulse 73 Temp 37 ?C (98.6 ?F) (Oral) Resp 12 Ht 190.5 cm (6' 3) Wt 97.3 kg (214 lb 8.1 oz) SpO2 95% BMI 26.81 kg/m? O2 Therapy: Room Air IANDO: Date 12/26/24699 - 12/27/2465812/27/24699 - 12/28/24 0659 Shift 7137-9876 6475-7444 4012-2945 24 Hour Total 0971-7082 5159-9197 8704-1710 24 Hour Total INTAKE PO 368 849 4759 PO 683 293 7168 Shift Total 872 910 5975 OUTPUT Urine 298 890 1889 2650 Urine Incontinence/Not Saved 1 x 1 x Output ( External Collection Device 12/24/24 1500 [facility]) 777 977 5939 2650 Shift Total 811 878 5357 2650 Weight (kg) 99.4 99.4 97.3 97.3 97.3 97.3 97.3 97.3 Neuro: GCS: Eyes: Opens eyes spontaneously (4) Verbal: Oriented (5) Motor: Obeys motor commands (6) Total: 15. AANDOx3 Chronic R FD (prior surgery). TM EOMI PERRL. Speech clear Motor Exam- RUE: 5/5 LUE: 0/5 except 4-/5 ceo and co founder RLE: 5/5 LLE: 0/5 Sensation: Patchy decreased sensation throughout LUE/LLE General: NAD. Pleasant HEENT: - Normocephalic. Atraumatic. CV: RRR on tele Pulm: even, unlabored GI/: abdomen soft, non-tender, non-distended Skin/Extremities: Grossly normal. Symmetrical. No edema, deformity, coloration changes. Peripheral pulses -present all extremities Labs: Recent Labs 12/27/24 0244 12/26/24 0337 12/25/24 0242 WBC 6.06 6.33 5.81 HB 14.2 13.9 13.1 HCT 42.3 41.9 41.1 PLT 224 194 176 NA 134* 131* 130* K 4.2 4.3 4.4 CHLOR 99 98 100 CO2 26 23 21* BUN 10 11 13 CREAT 0.75 0.70* 0.81 GLUC 107* 95 88 CA 8.9 8.7 8.2* MG 2.1 1.7 -- P 3.9 2.9 -- Recent Labs 12/25/24 1847 CK 54 Diagnostic tests reviewed for today's visit: Most recent labs and imaging results. ASSESSMENT AND PLAN: Active Hospital Problems Diagnosis Date Noted SDH (subdural hematoma) (HCC) 12/23/2024 Assessment AND Plan Note: CTH revealed acute right parafalcine SDH. S/p fall with posterior head trauma Kcentra for reversal of xarelto at OSH. NSGY following for possible evac Acute left hemiparesis (HCC) 12/25/2024 Assessment AND Plan Note: Initially presented with LLE weakness O/N (12/25) developed LUE weakness Etiology unclear NSGY does not feel LUE weakness is r/t SDH ?stroke in the setting of afib with OAC held 2/2 SDH ?seizure with todds paralysis ? Musculoskeletal given pt reports remote shoulder injury but denies pain at this time Plan: Repeat MRI brain to r/o stroke- pending rCTH in am of 12/26 No EEG SZ on 12/26 BEM check Continue to hold AC/AP Keppra 1000mg BID for 14 doses Hold DVT PPX chemo- may start 48hrs post stable scan Trauma 12/23/2024 Fall 12/23/2024 Current use of group home anticoagulation 12/23/2024 Scalp abrasion 12/23/2024 Neuropathy 12/23/2024 Left leg weakness 12/23/2024 Primary hypertension 12/23/2024 Chronic Chronic atrial fibrillation (HCC) 12/23/2024 Chronic Mr. Yañez is a 84 year old male with Pmhx of afib on xarelto, HTN who presents from OSH after a fall, found to have left aSDH and falx aSDH. -Neuro as above -q2 NC with pupilometer -Pain control: Continue current regimen and encourage more frequent flexeril usage -Imaging: MRI reviewed with Dr. Padilla -Diet: Ok for diet from NSGY standpoint -Incision(s)/Dressing(s): N/A -Drain(s): N/A -Antibiotic(s): Per primary -Activity: WBAT from NSGY standpoint -Dexamethasone: N/A -SBP <200 -HOB >30 -Na 134 -Seizure ppx: Keppra 1 g BID x7 dasy -DVT ppx: SQH -GI ppx: Per primary -Dispo: Discussed with Dr. Padilla, keep in ICU today Parts of this note may have been copied from one of my previous notes and remain pertinent. The documentation has been reviewed and edited as necessary to support the clinical decision making for today's visit. I spent a total of 25 minutes on the date of the service which included preparing to see the patient, [id number] patient care, completing clinical documentation, obtaining and/or reviewing separately obtained history, performing a medically appropriate examination, and counseling and educating the patient/family/caregiver. SIGNATURE: Shan Rubin PA-C PATIENT NAME: Sung Yañez DATE: December 27, 2024 TIME: 7:02 AM [phone] NoteHNO ID: [id number] Author: OMID HERNANDEZ PA-C Service: Neurosurgery Author Type: Physician Matrix Plater Type: Progress Notes Filed: 12/26/2024 15:07 Note Text: Documentation Query Please clarify the relationship, if any, between Subdural Hematoma and Xarelto such as: SDH exacerbated by Xarelto This document will become part of the patient's medical record.[facility]07-03-2025 NoteHNO ID: [id number] Author: OMID HERNANDEZ PA-C Service: Neurosurgery Author Type: Physician Matrix Plater Type: Progress Notes Filed: 12/26/2024 15:03 Note Text: Documentation Query Please clarify diagnosis associated with the clinical indicators Clinically significant Brain compression This document will become part of the patient's medical record.[facility]07-03-2025 NoteHNO ID: [id number] Author: STACY TARANGO, LINH Service: Care Management Author Type: Registered Nurse Type: Care Mgt Progress Note Filed: 12/26/2024 12:42 Note Text: CARE MANAGEMENT PROGRESS NOTE SERVICE DATE: 12/26/2024 SERVICE TIME: 12:41 PM LOS: 3 days Needs Prior to Discharge: Accepting Facility, Discharge Transportation [place] of Choice Given: Yes Level of Care Discussed: Inpatient Rehab Facility Provider List: Rehab Facility Provider list within the patient's requested geographic area shared with the patient/family: Yes within: 10 miles of zip code: [address] Quality and resource use metrics shared with the patient that are relevant to the patient's goals of care and treatment preferences:: Yes Metrics: Discharge to Community Met with pt and spouse and reviewed therapy rec and FOC list. Request for [facility] acute [facility]. Referral requested. SIGNATURE: Stacy Tarango RN PATIENT NAME: Sung Yañez DATE: December 26, 2024 TIME: 12:41 [facility]07-03-2025 NoteHNO ID: [id number] Author: OMID HERNANDEZ PA-C Service: Neurosurgery Author Type: Physician Matrix Plater Type: Progress Notes Filed: 12/26/2024 09:45 Note Text: Neurosurgery Progress Note SERVICE DATE: 12/26/2024 SUBJECTIVE: NAEON. Endorses mild headache and intermittent and nausea. OBJECTIVE: Vitals: Temp (24hrs), Av.7 ?C (98.1 ?F), Min:36.5 ?C (97.7 ?F), Max:36.9 ?C (98.4 ?F) BP 166/94 Pulse 68 Temp 36.5 ?C (97.7 ?F) Resp 11 Ht 190.5 cm (6' 3) Wt 99.4 kg (219 lb 2.2 oz) SpO2 93% BMI 27.39 kg/m? O2 Therapy: Room Air IANDO: Date 12/25/24699 - 12/26/24 0659 12/26/24699 - 12/27/24 0659 Shift 4208-8904 4001-2186 4747-7766 24 Hour Total 4714-9093 9077-2840 5679-7729 24 Hour Total INTAKE PO 960 960 360 360 PO 960 960 360 360 Shift Total 960 960 360 360 OUTPUT Urine 700 775 395 4199 Urine Incontinence/Not Saved 1 x 2 x 3 x Output ( External Collection Device 12/24/24 1500 [facility]) 700 407 056 6388 Shift Total 700 953 293 0551 Weight (kg) 97.6 97.6 97.6 97.6 99.4 99.4 99.4 99.4 Medications: Current Facility-Administered Medications Medication Dose Route Frequency potassium chloride 20-40 mEq oral powder (KLOR-CON) 20-40 mEq ORAL/FEEDING TUBE PRN Or potassium chloride iv piggyback 20 mEq/100 mL 20 mEq INTRAVENOUS PRN sodium phosphate 30 mmol in D5W 250 mL 30 mmol INTRAVENOUS PRN(NO DISPENSE) Or sodium phosphate 45 mmol in D5W 250 mL 45 mmol INTRAVENOUS PRN(NO DISPENSE) magnesium sulfate iv piggyback in sterile water 2 g 50 mL 2 g INTRAVENOUS PRN calcium gluconate iv piggyback 2 g in NaCl (iso-osmotic) 100 mL 2 g INTRAVENOUS PRN(NO DISPENSE) NaCl 0.9% iv flush bag 20 mL INTRAVENOUS PRN lisinopril 20 mg tab(s) (ZESTRIL) 20 mg ORAL DAILY acetaminophen 975 mg tab(s) (TYLENOL) 975 mg ORAL QID metoprolol succinate ER 50 mg tab(s) (TOPROL XL) 50 mg ORAL DAILY ondansetron 4 mg tab(s) (ZOFRAN) 4 mg ORAL q 6 H PRN Or ondansetron (PF) 4 mg injection (ZOFRAN) 4 mg INTRAVENOUS q 6 H PRN oxyCODONE IR 2.5-5 mg tab(s) (ROXICODONE) 2.5-5 mg ORAL q 4 H PRN senna-docusate 8.6-50 mg 1 tablet (SENNA-S) 1 tablet ORAL BID levETIRAcetam 1,000 mg tab(s) (KEPPRA) 1,000 mg ORAL BID Labs: Recent Labs 12/26/24 0337 12/25/24 0242 12/24/24 0235 12/23/24 1040 NA 131* 130* 137 138 K 4.3 4.4 4.2 4.2 CHLOR 98 100 106 105 CO2 23 21* 23 19* BUN 11 13 12 12 CREAT 0.70* 0.81 0.81 0.77 GLUC 95 88 91 110* ANION 10 9 8 14 CA 8.7 8.2* 8.5 8.5 MG 1.7 -- 2.1 -- P 2.9 -- 3.7 -- ALB -- -- -- 3.6* AST -- -- -- 18 ALT -- -- -- 10 ALKPHOS -- -- -- 88 TBILI -- -- -- 1.0 WBC 6.33 5.81 4.93 6.62 HB 13.9 13.1 12.5* 14.5 HCT 41.9 41.1 38.4* 45.4 PLT 194 176 188 203 INR -- -- -- 1.2 GENERAL: drowsy but awakens easily HEENT: normocephalic, LUNGS: Unlabored, regular breathing CARDIAC: rate as above EXTREMITIES: No deformities, No edema SKIN: Skin color, texture, turgor normal NEUROLOGICAL: Mental Status: AAOx 3; follows commands Speech: fluent and clear Cranial Nerves: CN II: not examined CN III, IV, : Pupils equal, round and reactive to light, full extraoccular movements without nystagmus, ptosis, or lid lag CN V: numbness to right lower face (pt reports this is chronic) CN VII: Facial muscles symmetric and strong, no drool, moist buccal mucosa CN VIII: Hearing intact to voice CN IX: Gag Reflex Not Examined CN X: Cough not examined CN XI: weak left shoulder shrug. CN XII: Tongue protrusion full and midline Motor Exam: RUE 5/5, RLE 5/5, LUE 0/5 except ceo and co founder 4-/5, LLE 0/5 Sensation: intact to light touch in UE/LE/trunk Gait: not assessed ASSESSMENT AND PLAN: Active Hospital Problems Diagnosis Date Noted SDH (subdural hematoma) ([facility]) 12/23/2024 Assessment AND Plan Note: CTH revealed acute right parafalcine SDH. S/p fall with posterior head trauma Kcentra for reversal of xarelto at OSH. NSGY following for possible evac Acute left hemiparesis (HCC) 12/25/2024 Assessment AND Plan Note: Initially presented with LLE weakness O/N (12/25) developed LUE weakness Etiology unclear NSGY does not feel LUE weakness is r/t SDH ?stroke in the setting of afib with OAC held 2/2 SDH ?seizure with todds paralysis ? Musculoskeletal given pt reports remote shoulder injury but denies pain at this time Plan: Repeat MRI brain to r/o stroke- pending [facility] in am of 12/26 No EEG SZ on 12/26 BEM check Continue to hold AC/AP Keppra 1000mg BID for 14 doses Hold DVT PPX chemo- may start 48hrs post stable scan Trauma 12/23/2024 Fall 12/23/2024 Current use of group home anticoagulation 12/23/2024 Scalp abrasion 12/23/2024 Neuropathy 12/23/2024 Left leg weakness 12/23/2024 Primary hypertension 12/23/2024 Chronic Chronic atrial fibrillation (HCC) 12/23/2024 Chronic Mr. Yañez is a 84 year old male with hx of afib on xarelto and HTN who presents from OSH after a fall. CT head indicated (more content not included)... [facility]07-03-2025 NoteHNO ID: [id number] Author: KATI CHAUHAN MD Service: General Surgery Author Type: Physician Type: Progress Notes Filed: 12/26/2024 10:32 Note Text: INPATIENT SICU PROGRESS NOTE SERVICE DATE: 12/26/2024 SERVICE TIME: 7:36 AM Subjective Patient seen in the AM. Persistent LLE weakness, unchanged. Denies new symptoms. rCTH pending. 24 EEG monitoring negative. ROLANDO overnight. Current Facility-Administered Medications Medication Dose Route Frequency ondansetron 4 mg tab(s) (ZOFRAN) 4 mg ORAL q 6 H PRN Or ondansetron (PF) 4 mg injection (ZOFRAN) 4 mg INTRAVENOUS q 6 H PRN oxyCODONE IR 2.5-5 mg tab(s) (ROXICODONE) 2.5-5 mg ORAL q 4 H PRN senna-docusate 8.6-50 mg 1 tablet (SENNA-S) 1 tablet ORAL BID levETIRAcetam 1,000 mg tab(s) (KEPPRA) 1,000 mg ORAL BID lisinopril 20 mg tab(s) (ZESTRIL) 20 mg ORAL DAILY acetaminophen 975 mg tab(s) (TYLENOL) 975 mg ORAL QID metoprolol succinate ER 50 mg tab(s) (TOPROL XL) 50 mg ORAL DAILY potassium chloride 20-40 mEq oral powder (KLOR-CON) 20-40 mEq ORAL/FEEDING TUBE PRN Or potassium chloride iv piggyback 20 mEq/100 mL 20 mEq INTRAVENOUS PRN sodium phosphate 30 mmol in D5W 250 mL 30 mmol INTRAVENOUS PRN(NO DISPENSE) Or sodium phosphate 45 mmol in D5W 250 mL 45 mmol INTRAVENOUS PRN(NO DISPENSE) magnesium sulfate iv piggyback in sterile water 2 g 50 mL 2 g INTRAVENOUS PRN calcium gluconate iv piggyback 2 g in NaCl (iso-osmotic) 100 mL 2 g INTRAVENOUS PRN(NO DISPENSE) NaCl 0.9% iv flush bag 20 mL INTRAVENOUS PRN Objective VITAL SIGNS BP 150/89 Pulse 70 Temp (Src) 97.7 (Oral) Resp 10 Ht 6' 3 (1.91m) Wt 215 lb 2.7 oz (97.6kg) SpO2 96% BMI 26.89 kg/(m2). Temp (24hrs), Av.7 ?C (98.1 ?F), Min:36.5 ?C (97.7 ?F), Max:36.9 ?C (98.4 ?F) Date 12/25/24 07 - 12/26/24 0659 12/26/24 07 - 12/27/24 0659 Shift 8526-3051 0202-1712 2088-0641 24 Hour Total 1572-7394 0469-8990 2684-0776 24 Hour Total INTAKE PO 960 960 PO 960 960 Shift Total 960 960 OUTPUT Urine 700 854 020 9831 Urine Incontinence/Not Saved 1 x 2 x 3 x Output ( External Collection Device 12/24/24 1500 [facility]) 700 562 941 8521 Shift Total 700 422 854 5454 Weight (kg) 97.6 97.6 97.6 97.6 97.6 97.6 97.6 97.6 PHYSICAL EXAM: GENERAL: Alert. No distress. Resting comfortably in bed NEURO: AANDOx3. Weakness in dorsiflexion, plantarflexion, and weakness in hip flexion in LLE. Sensation grossly intact. HEENT: Normocephalic. Atraumatic. EOMI. LUNGS: Unlabored breathing. Equal excursion bilaterally. CARDIAC: Regular rate, on tele, Good perfusion throughout. ABDOMEN: Soft, non-tender, non-distended. No rebound or guarding. EXTREMITIES: No deformities. LLE decreased strength and movement compared to RLE SKIN: No obvious jaundice or pallor. DATA: Diagnostic tests reviewed for today's visit: No results for input(s): BODSITE, CTYPE, PH, PCO2, PO2, BE, HCO3, CO2CT, O2HB, COHB, MHGB, TEMP, PHTC, PCO2T, PO2T, O2AD in the last 72 hours. Recent Labs 12/26/24 0337 12/25/24 0242 12/24/24 0235 12/23/24 1040 CREAT 0.70* 0.81 0.81 0.77 BUN 11 13 12 12 NA 131* 130* 137 138 K 4.3 4.4 4.2 4.2 CHLOR 98 100 106 105 CO2 23 21* 23 19* ANION 10 9 8 14 GLUC 95 88 91 110* CA 8.7 8.2* 8.5 8.5 P 2.9 -- 3.7 -- MG 1.7 -- 2.1 -- ALB -- -- -- 3.6* AST -- -- -- 18 ALT -- -- -- 10 ALKPHOS -- -- -- 88 TBILI -- -- -- 1.0 WBC 6.33 5.81 4.93 6.62 HB 13.9 13.1 12.5* 14.5 HCT 41.9 41.1 38.4* 45.4 PLT 194 176 188 203 Assessment AND Plan ACTIVE PROBLEM LIST Family History of Malignant Neoplasm of Gastrointestinal Tract Sdh (Subdural Hematoma) (Hcc) Trauma Fall 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 Presented to [place] 3 days later and was transferred to [facility] on 12/23/2024. Admitted to the SICU. rCTH #3 stable. Per NSGY recommendations obtaining rCTH today. Hospital course: 12/23: admit to SICU 12/25: rCTH stable from prior 12/26: 24 EEG negative Neuro: SDH: - Neurosurgery consulted, awaiting recommendations - Q1 neuro checks, possible downgrade to q4h pending morning imaging - rCTh #1 - slightly increased size, he will need further repeat CT's to ensure stability - rCTH #2 - stable - rCTH #3 stable - rCTH #4: Pending - anticipate RNF today. - MRI brain - irregular enhancement within collection extrav vs. Spot sign - NIL consulted, appreciate recommendations - Keppra 1000 mg BID x 14 doses end (12/29) - S/p KCentra given at outside ED for home Xarelto reversal - Hold home Xarelto at this time, Hold DVT prophylaxis - Will need PT/OT/SUMMER ANALYST recs - Will need to follow up with neurosurgery after hospital discharge - pain and nausea prn CV: HTN: (more content not included)...[facility]07-03-2025 Note HNO ID: [id number] Author: PARISH ALBRIGHT MD Service: General Surgery Author Type: Resident Type: Progress Notes Filed: 12/26/2024 11:37 Note Text: Attestation signed by Parish Albright MD at 12/26/2024 11:37 AM Attending Note I personally saw and examined the patient. I reviewed the resident's note. I agree with the resident's assessment and plan unless otherwise noted. Signature: Parish Albright MD Date: 12/26/2024 Time: 11:37 AM Trauma Surgery Progress Note SERVICE DATE: 12/26/2024 Trauma Service Pager: For questions or concerns Mon-Fri 6a-5p please page [phone]. After 5pm and on Weekends and Holidays, please page [phone] if in ICU or [phone] if on RNF. SUBJECTIVE: No acute overnight events. Pt with no complaints at this time. AANDOx3. Remains drowsy, CTH pending this AM OBJECTIVE: Vitals: Temp (24hrs), Av.7 ?C (98.1 ?F), Min:36.5 ?C (97.7 ?F), Max:36.9 ?C (98.4 ?F) BP 150/89 Pulse 70 Temp 36.5 ?C (97.7 ?F) Resp 10 Ht 190.5 cm (6' 3) Wt 97.6 kg (215 lb 2.7 oz) SpO2 96% BMI 26.89 kg/m? O2 Therapy: Room Air IANDO: Date 12/25/24699 - 12/26/24 0612/26/24699 - 12/27/24 0659 Shift 6588-6366 5637-8752 4665-5091 24 Hour Total 4186-9056 0782-1792 3606-1518 24 Hour Total INTAKE PO 960 960 PO 960 960 Shift Total 960 960 OUTPUT Urine 700 730 543 8589 Urine Incontinence/Not Saved 1 x 2 x 3 x Output ( External Collection Device 12/24/24 1500 [facility]) 700 645 690 7197 Shift Total 700 581 898 3584 Weight (kg) 97.6 97.6 97.6 97.6 97.6 97.6 97.6 97.6 MEDICATIONS: Current Facility-Administered Medications Medication Dose Route Frequency potassium chloride 20-40 mEq oral powder (KLOR-CON) 20-40 mEq ORAL/FEEDING TUBE PRN Or potassium chloride iv piggyback 20 mEq/100 mL 20 mEq INTRAVENOUS PRN sodium phosphate 30 mmol in D5W 250 mL 30 mmol INTRAVENOUS PRN(NO DISPENSE) Or sodium phosphate 45 mmol in D5W 250 mL 45 mmol INTRAVENOUS PRN(NO DISPENSE) magnesium sulfate iv piggyback in sterile water 2 g 50 mL 2 g INTRAVENOUS PRN calcium gluconate iv piggyback 2 g in NaCl (iso-osmotic) 100 mL 2 g INTRAVENOUS PRN(NO DISPENSE) NaCl 0.9% iv flush bag 20 mL INTRAVENOUS PRN lisinopril 20 mg tab(s) (ZESTRIL) 20 mg ORAL DAILY acetaminophen 975 mg tab(s) (TYLENOL) 975 mg ORAL QID metoprolol succinate ER 50 mg tab(s) (TOPROL XL) 50 mg ORAL DAILY ondansetron 4 mg tab(s) (ZOFRAN) 4 mg ORAL q 6 H PRN Or ondansetron (PF) 4 mg injection (ZOFRAN) 4 mg INTRAVENOUS q 6 H PRN oxyCODONE IR 2.5-5 mg tab(s) (ROXICODONE) 2.5-5 mg ORAL q 4 H PRN senna-docusate 8.6-50 mg 1 tablet (SENNA-S) 1 tablet ORAL BID levETIRAcetam 1,000 mg tab(s) (KEPPRA) 1,000 mg ORAL BID Labs: Recent Labs 12/26/24 0337 12/25/24 0242 12/24/24 0235 12/23/24 1040 NA 131* 130* 137 138 K 4.3 4.4 4.2 4.2 CHLOR 98 100 106 105 CO2 23 21* 23 19* BUN 11 13 12 12 CREAT 0.70* 0.81 0.81 0.77 GLUC 95 88 91 110* ANION 10 9 8 14 CA 8.7 8.2* 8.5 8.5 MG 1.7 -- 2.1 -- P 2.9 -- 3.7 -- ALB -- -- -- 3.6* AST -- -- -- 18 ALT -- -- -- 10 ALKPHOS -- -- -- 88 TBILI -- -- -- 1.0 WBC 6.33 5.81 4.93 6.62 HB 13.9 13.1 12.5* 14.5 HCT 41.9 41.1 38.4* 45.4 PLT 194 176 188 203 INR -- -- -- 1.2 PHYSICAL EXAM: GENERAL: Alert. No distress. Resting comfortably. NEURO: AANDOx3. No focal neurologic deficits. Sensation grossly intact. HEENT: Normocephalic. Atraumatic. EOMI. LUNGS: Unlabored breathing. Equal excursion bilaterally. CARDIAC: Regular rate. Good perfusion throughout. ABDOMEN: Soft, non-tender, non-distended. No rebound or guarding. EXTREMITIES: equal b/l ceo and co founder strength, rle strength intact, decreased strength and sensation to lle SKIN: No obvious jaundice or pallor. ASSESSMENT AND PLAN: Assessment Active Hospital Problems Diagnosis Date Noted SDH (subdural hematoma) (HCC) 12/23/2024 Assessment AND Plan Note: CTH revealed acute right parafalcine SDH. S/p fall with posterior head trauma Kcentra for reversal of xarelto at OSH. NSGY following for possible evac Acute left hemiparesis (HCC) 12/25/2024 Assessment AND Plan Note: Initially presented with LLE weakness O/N (12/25) developed LUE weakness Etiology unclear NSGY does not feel LUE weakness is r/t SDH ?stroke in the setting of afib with OAC held 2/2 SDH ?seizure with todds paralysis ? Musculoskeletal given pt reports remote shoulder injury but denies pain at this time Plan: Repeat MRI brain to r/o stroke- pending [facility] in am of 12/26 No EEG SZ on 12/26 BEM check Continue to hold AC/AP Keppra 1000mg BID for 14 doses Hold DVT PPX chemo- may start 48hrs post stable scan Trauma 12/23/2024 Fall 12/23/2024 Current use of group home anticoagulation 12/23/2024 Scalp abrasion 12/23/2024 Neuropathy 12/23/2024 Left leg weak (more content not included)...[facility] 12-26-2024 NoteHNO ID: [id number] Author: SAMPSON BLUNT APRN.TEXTILE ENGINEER Service: Neurology ICU Author Type: Nurse Practitioner Type: Progress Notes Filed: 12/26/2024 02:05 Note Text: Attestation signed by Yumiko De Paz DO, PhD at 12/26/2024 11:19 PM THE NEURO ICU MANAGEMENT OF THIS PATIENT WAS DISCUSSED WITH THE NICU TEAM I have reviewed the progress note obtained and documented by the advanced practice provider . I have personally seen and examined the patient and discussed their management with the RASHAWN. I reviewed the RASHAWN note and agree with the documented findings and plan of care. I have repeated the examination and confirm the findings except as documented. PATIENT PROBLEMS I REVIEWED, REVISED AND/OR INITIATED: The care of this patient required my full attention and direct personal management of: Principal Problem: SDH (subdural hematoma) (HCC) Active Problems: Trauma Fall Current use of buttermaker anticoagulation Scalp abrasion Neuropathy Left leg weakness Primary hypertension Chronic atrial fibrillation (HCC) Acute left hemiparesis (HCC) Resolved Problems: * No resolved hospital problems. * ==== STAFF COORDINATION OF CRITICAL CARE [facility] Staff Physician note of personal involvement in Care The patient is critically ill because of imminent risk of acute brain damage and continues to require intensive support and observation. This patient has a high probability of sudden, clinically significant deterioration, which requires the highest level of physician preparedness to intervene urgently. I managed/supervized life or organ supporting interventions that required frequent physician assessment. I devoted my full attention to the direct care of this patient for the amount of time indicated below. Time I spent with family or surrogate(s) is included only if the patient was incapable of providing the necessary information or participating in medical decision making. Time devoted to teaching or to any procedures I billed separately is not included. CRITICAL CARE: I personally spent 40 minutes of critical care time involved in the care of this patient. ==== PLAN, IMPRESSION AND ACTION(S) TAKEN 84 yo htn Afin ( xarelto) presented s/p fal and with concern for head impact and r parafacling SDA with corpus compression. Presented with LLE weakness with subsequent lef UE weakness - MRI jen without acute ischemic pathology - C spine imaging unremarkable Consulted for Left UE proximal weakness Patient complained of Left shoulder pain before weakness was noted. - Diminished shoulder shrug, proximal will not lift arm however able to touch finger to nose without difficul without lifting elbow Was able to work with PT this am. Family reports noting antigravity proximal arm . Odd unilateral proximal weakness, met work up TSH CK unremarkable, no neck weakness, no finger digit weakness, no rash, no concern for infection of clear anatomical derivative for flacid proximal with retained distal strength. sensation intact XR without anatomical abnormality. Unclear etiology. 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 Plan of care discussed with: . Yumiko De Paz DO, PhD Staff, Neurointensive Care [facility] [place] Date of Service: 12/26/2024 Time of Service: 10:59 PM This is an electronically created document. If printed, please do not remove from the chart or modify printed copy. SERVICE DATE: 12/26/2024 SERVICE TIME: 2:02 AM NEURO ICU PROGRESS NOTE DATE OF ADMISSION: 12/23/2024 Subjective Hospital Course: 12/25: No EEG seizure seen on BEM, able to wiggle fingers to left hand Events Since Last Note: See above Objective BP 139/80 Pulse 65 Temp 36.5 ?C (97.7 ?F) Resp 13 Ht 190.5 cm (6' 3) Wt 97.6 kg (215 lb 2.7 oz) SpO2 97% BMI 26.89 kg/m? Weight change: 2.6 kg (5 lb 11.7 oz) Neuro: AAOx3, follow command, PERRL, EOMI, speech clear, sensation intact, LUE 2/5 with movement to fingers, LUE 1/5, RUE/LE 5/5 GCS: Eyes: 4. Spontaneous Verbal: 5: Oriented Motor: 6: Obeys Motor commands Total: 15 CV: S1S2, RRR Pulm: CTAB, unlabored GI/: Soft and non tender Skin/Extremities: Edema- No Peripheral pulses- Present all extremities Wounds/Drsgs- No Breakdown- No Diagnostic tests reviewed for today's visit: Most recent labs and imaging results. Lines, Drains, and Airways Line Duration Peripheral 12/23/24 Kisha (more content not included)...[facility]07-02-2025 NoteHNO ID: [id number] Author: KRYS LANDA DO Service: General Surgery Author Type: Resident Type: Plan of Care Filed: 12/25/2024 16:59 Note Text: Plan of care Discussed with RN. No plans for transfer today. Will obtain repeat CT head 73 AM and reassess. Krys Landa DO PGY-2 December 25, 2024 4:59 [facility]07-02-2025 NoteHNO ID: [id number] Author: RUDDY QUINN MD Service: General Surgery Author Type: Resident Type: Progress Notes Filed: 12/25/2024 06:52 Note Text: Attestation signed by López Leyva MD at 12/27/2024 11:33 AM Attending Note I have seen and evaluated the patient. I have reviewed the imaging, lab results and examined the patient personally. I have created and discussed the care plan and agree with documentation above as provided by the Advanced Practice Provider/resident. López Leyva MD Department of General Surgery Section of Trauma, Surgery Critical Care, and Acute Care Surgery Trauma Surgery Progress Note SERVICE DATE: 12/25/2024 Trauma Service Pager: For questions or concerns Mon-Fri 6a-5p please page [phone]. After 5pm and on Weekends and Holidays, please page [phone] if in ICU or [phone] if on RNF. SUBJECTIVE: No acute overnight events. Pt with no complaints at this time. AANDOx3, weakness in left lower extremity. Ct head completed this morning and stable. OBJECTIVE: Vitals: Temp (24hrs), Av.5 ?C (97.7 ?F), Min:36.2 ?C (97.2 ?F), Max:36.7 ?C (98.1 ?F) BP 151/76 Pulse 77 Temp 36.2 ?C (97.2 ?F) Resp 18 Ht 190.5 cm (6' 3) Wt 95 kg (209 lb 7 oz) SpO2 94% BMI 26.18 kg/m? O2 Therapy: Nasal Cannula IANDO: Date 12/24/24699 - 12/25/2465812/25/24699 - 12/26/24 0659 Shift 0832-0346 0290-3317 8376-8395 24 Hour Total 5330-5816 9586-9687 4007-6084 24 Hour Total INTAKE PO 120 300 420 PO 120 300 420 Irrigants 250 250 Irrigant/Flush Amount In mL (I/O) ([REMOVED] Indwelling Urinary Catheter 12/23/24 [facility] 12/24/24 1500) 250 250 Shift Total 120 550 670 OUTPUT Urine 325 450 200 975 Amount Voided Before Bladder Scan 100 100 Urine Incontinence/Not Saved 1 x 1 x Output ([REMOVED] Indwelling Urinary Catheter 12/23/24 [facility] 12/24/24 1500) 325 50 375 Output ( External Collection Device 12/24/24 1500 [facility]) 300 200 500 Shift Total 325 450 200 975 Weight (kg) 95 95 95 95 95 95 95 95 MEDICATIONS: Current Facility-Administered Medications Medication Dose Route Frequency lisinopril 20 mg tab(s) (ZESTRIL) 20 mg ORAL DAILY acetaminophen 975 mg tab(s) (TYLENOL) 975 mg ORAL QID metoprolol succinate ER 50 mg tab(s) (TOPROL XL) 50 mg ORAL DAILY ondansetron 4 mg tab(s) (ZOFRAN) 4 mg ORAL q 6 H PRN Or ondansetron (PF) 4 mg injection (ZOFRAN) 4 mg INTRAVENOUS q 6 H PRN oxyCODONE IR 2.5-5 mg tab(s) (ROXICODONE) 2.5-5 mg ORAL q 4 H PRN senna-docusate 8.6-50 mg 1 tablet (SENNA-S) 1 tablet ORAL BID levETIRAcetam 1,000 mg tab(s) (KEPPRA) 1,000 mg ORAL BID Labs: Recent Labs 12/25/24 0242 12/24/24 0235 12/23/24 1040 NA 130* 137 138 K 4.4 4.2 4.2 CHLOR 100 106 105 CO2 21* 23 19* BUN 13 12 12 CREAT 0.81 0.81 0.77 GLUC 88 91 110* ANION 9 8 14 CA 8.2* 8.5 8.5 MG -- 2.1 -- P -- 3.7 -- ALB -- -- 3.6* AST -- -- 18 ALT -- -- 10 ALKPHOS -- -- 88 TBILI -- -- 1.0 WBC 5.81 4.93 6.62 HB 13.1 12.5* 14.5 HCT 41.1 38.4* 45.4 PLT 176 188 203 INR -- -- 1.2 PHYSICAL EXAM: GENERAL: Alert. No distress. Resting comfortably. NEURO: AANDOx3. No focal neurologic deficits. Sensation grossly intact. HEENT: Normocephalic. Atraumatic. EOMI. LUNGS: Unlabored breathing. Equal excursion bilaterally. CARDIAC: Regular rate. Good perfusion throughout. ABDOMEN: Soft, non-tender, non-distended. No rebound or guarding. EXTREMITIES: equal b/l ceo and co founder strength, rle strength intact, decreased strength and sensation to lle SKIN: No obvious jaundice or pallor. ASSESSMENT AND PLAN: Assessment Active Hospital Problems Diagnosis Date Noted SDH (subdural hematoma) (HCC) 12/23/2024 Trauma 12/23/2024 Fall 12/23/2024 Current use of buttermaker anticoagulation 12/23/2024 Scalp abrasion 12/23/2024 Neuropathy 12/23/2024 Left leg weakness 12/23/2024 Primary hypertension 12/23/2024 Chronic Chronic atrial fibrillation (HCC) 12/23/2024 Chronic 84 year old male PMH afib (on xarelto), CHRISTOPHER, HTN, melanoma, sp mechanical ground level fall on 12/20 originally presented to [place] [facility] Kcentra given prior to transfer, transferred to [facility] 12/23 for SDH. Imaging performed: - CTHN, CTAHN, CT CAP, MRI brain Traumatic Injuries: - large right parafalcine SDH -mild right to left shift of midline Hospital Course: - 12/20 presented to [place] ED following ground level fall, acute SDH noted in CTA H/N, Kcentra and Keppra given -12/23 transferred to [facility] -12/24 repeat CTH - slight decreased size of parasagittal component of right subdural hemorrhage, stable appearing left cerebral subdural hemorrhage and right cerebellar subdural hemorrhage Care Plan: Large right parafalcine SDH - CT head and MRI performed 12/24, worse (more content not included)...[facility]07-01-2025 NoteHNO ID: [id number] Author: ?, ?, ? Service: Pharmacy Author Type: Insurance And Financial Services Agent Type: Plan of Care Filed: 12/24/2024 14:51 Note Text: PHARMACY MEDICATION REVIEW Patient Name: Sung Yañez : 1940 The following medications were updated within the SENIOR TEST ENGINEER medication list: Medications ADDED to SENIOR TEST ENGINEER medication list ibuprofen (ADVIL) 200 mg tablet Take 200 mg by mouth every 8 hours. Medications CHANGED on SENIOR TEST ENGINEER medication list Medications REMOVED from SENIOR TEST ENGINEER medication list Additional comments: Verified medication information with e-scripts/dispense report and chart review. Confirmed medications with family. Family stated patient taking Advil - added to med list. Required follow up actions for nursing: None The below information represents the best possible medication history: Yes Medication history completed by: Insurance And Financial Services Agent: Letitia Carter (Belt Picker) Source of history: Family: Reliability of source: Appears reliable, clearly identified: Medication name, Medication dose, Medication route, and Medication frequency and Spoke with family in room, Pharmacy records: e-scripts/dispense report, and [facility] records Medication nonadherence identified: No barriers noted Reconciliation completed: No, pharmacist not yet reviewed Patient interested in Bedside Delivery Services or using OP Pharmacy at discharge? Unable to assess Preferred outpatient pharmacy: [id number] [place] [address] [address] [facility]. - [phone] [facility] [phone] [id number] Allergies: No Known Allergies Prior to Admission Medications Prescriptions Last Dose Informant Patient Reported? Taking? MAGNESIUM GLYCINATE PO Yes Yes Sig: Take 200 mg by mouth once daily. ibuprofen (ADVIL) 200 mg tablet Yes Yes Sig: Take 200 mg by mouth every 8 hours. lisinopril (ZESTRIL) 20 mg tablet Yes Yes Sig: Take 20 mg by mouth once daily. metoprolol succinate ER (TOPROL XL) 50 mg 24 hr tablet Yes Yes Sig: Take 50 mg by mouth once daily. rivaroxaban (XARELTO) 20 mg tablet Yes Yes Sig: Take 20 mg by mouth daily with dinner. Facility-Administered Medications: None Letitia Carter (Belt Picker)[id number] 12/24/2024[facility]07-01-2025 NoteHNO ID: [id number] Author: STACY TARANGO, RN Service: Care Management Author Type: Registered Nurse Type: Care Mgt Initial Assessment Filed: 12/24/2024 11:30 Note Text: CARE MANAGEMENT: ASSESSMENT AND DISCHARGE PLAN SERVICE DATE: December 24, 2024 SERVICE TIME: 11:19 AM PCP: Briseida Vergara MD Primary Contact: Extended Emergency Contact Information Primary Emergency Contact: Moise Yañez Address: [address] [place] [address] Mobile Relation: Spouse Secondary Emergency Contact: Steve Yañez Mobile Relation: Son Admission Status: Inpatient Insurance Provider: MEDICARE A AND B Discharge Planning requested by: Per Department Practice Potential Transition Plans Home Advance Directives Current Living Arrangements and Support Lives with: Spouse/significant other Type of Residence: Private Residence (House) Does the patient have to climb stairs at home?: Yes Support: Spouse/significant other, Family members How do you manage to accomplish the following: Independent: Ambulation, Medication Management, Transportation to appointments/community, Bathe/Shower, Dress, Meals/Meal Prep, Going to the bathroom Current Services/Equipment Current Post-Acute Service(s): DME Current DME Type: Cane Discharge Planning Patient Goal(s): Be able to go home [place] Choice Explained: [place] of Choice Given: No Reason Not Given: No placements necessary Are you interested in bedside delivery of your medications? No Discharge Planning Participant(s): Patient Patient/Family Comments: not at bedside Caregiver Assessment: Caregiver is ready, willing and able to meet the patient's needs as recommended by the inter-professional team: Yes Name of Caregiver: Moise Transport at Discharge: Transportation Arrangements: To Be Determined Needs Prior to Discharge: Needs Prior to Discharge: OT/PT Evaluation Post-Acute Discharge Plan: Pt lives with spouse. 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 Has cane- does not use. Pt has PCP and [facility] Discussed possible therapy needs after hospital admit- pt has [facility] [place] [facility] patient therapy. SIGNATURE: Stacy Tarango RN PATIENT NAME: Sung Yañez DATE: December 24, 2024 TIME: 11:19 [facility]07-01-2025 NoteHNO ID: [id number] Author: LÓPEZ LEYVA MD Service: General Surgery Author Type: Resident Type: Progress Notes Filed: 12/27/2024 11:33 Note Text: Attestation signed by López Leyva MD at 12/27/2024 11:33 AM Attending Note I have seen and evaluated the patient. I have reviewed the imaging, lab results and examined the patient personally. I have created and discussed the care plan and agree with documentation above as provided by the Advanced Practice Provider/resident. López Leyva MD Department of General Surgery Section of Trauma, Surgery Critical Care, and Acute Care Surgery Trauma Surgery Progress Note SERVICE DATE: 12/24/2024 Trauma Service Pager: For questions or concerns Mon-Fri 6a-5p please page [phone]. After 5pm and on Weekends and Holidays, please page [phone] if in ICU or [phone] if on RNF. SUBJECTIVE: No acute overnight events. Pt with no complaints at this time. AANDOx3, weakness in left lower extremity. Ct head completed this morning. OBJECTIVE: Vitals: Temp (24hrs), Av.7 ?C (98.1 ?F), Min:36.5 ?C (97.7 ?F), Max:36.9 ?C (98.4 ?F) BP 149/77 Pulse 63 Temp 36.5 ?C (97.7 ?F) (Oral) Resp 14 Ht 190.5 cm (6' 3) Wt 95 kg (209 lb 7 oz) SpO2 98% BMI 26.18 kg/m? O2 Therapy: Nasal Cannula IANDO: Date 12/23/24699 - 12/24/2465812/24/24699 - 12/25/24 0659 Shift 5471-0671 9425-4525 5888-7378 24 Hour Total 8564-3883 4491-6658 5210-8456 24 Hour Total INTAKE PO 90 110 140 340 PO 90 110 140 340 IV 200 200 Volume (mL) (calcium gluconate iv piggyback 2 g in NaCl (iso-osmotic) 100 mL) 200 200 Shift Total 90 110 340 540 OUTPUT Urine 750 301 916 6256 Output ( Indwelling Urinary Catheter 12/23/24 [facility] ) 750 321 793 0529 Shift Total 750 986 961 0958 Weight (kg) 95 95 95 95 95 95 95 95 MEDICATIONS: Current Facility-Administered Medications Medication Dose Route Frequency NaCl 0.9% iv flush bag 20 mL INTRAVENOUS PRN potassium chloride ER 20-40 mEq tab(s) (KLOR-CON) 20-40 mEq ORAL/FEEDING TUBE PRN Or potassium chloride iv piggyback 20 mEq/100 mL 20 mEq INTRAVENOUS PRN magnesium sulfate iv piggyback in sterile water 2 g 50 mL 2 g INTRAVENOUS PRN phosphorus 500 mg tab(s) (K PHOS NEUTRAL) 500 mg ORAL/FEEDING TUBE PRN(NO DISPENSE) calcium gluconate iv piggyback 2 g in NaCl (iso-osmotic) 100 mL 2 g INTRAVENOUS PRN(NO DISPENSE) ondansetron 4 mg tab(s) (ZOFRAN) 4 mg ORAL q 6 H PRN Or ondansetron (PF) 4 mg injection (ZOFRAN) 4 mg INTRAVENOUS q 6 H PRN acetaminophen 975 mg tab(s) (TYLENOL) 975 mg ORAL q 6 H oxyCODONE IR 2.5-5 mg tab(s) (ROXICODONE) 2.5-5 mg ORAL q 4 H PRN senna-docusate 8.6-50 mg 1 tablet (SENNA-S) 1 tablet ORAL BID levETIRAcetam 1,000 mg tab(s) (KEPPRA) 1,000 mg ORAL BID iv contrast (radiology procedure) INTRAVENOUS DIRECTED PRN iv contrast (radiology procedure) INTRAVENOUS DIRECTED PRN iv contrast (radiology procedure) INTRAVENOUS DIRECTED PRN Labs: Recent Labs 12/24/24 0235 12/23/24 1040 NA 137 138 K 4.2 4.2 CHLOR 106 105 CO2 23 19* BUN 12 12 CREAT 0.81 0.77 GLUC 91 110* ANION 8 14 CA 8.5 8.5 MG 2.1 -- P 3.7 -- ALB -- 3.6* AST -- 18 ALT -- 10 ALKPHOS -- 88 TBILI -- 1.0 WBC 4.93 6.62 HB 12.5* 14.5 HCT 38.4* 45.4 PLT 188 203 INR -- 1.2 PHYSICAL EXAM: GENERAL: Alert. No distress. Resting comfortably. NEURO: AANDOx3. No focal neurologic deficits. Sensation grossly intact. HEENT: Normocephalic. Atraumatic. EOMI. LUNGS: Unlabored breathing. Equal excursion bilaterally. CARDIAC: Regular rate. Good perfusion throughout. ABDOMEN: Soft, non-tender, non-distended. No rebound or guarding. EXTREMITIES: equal b/l ceo and co founder strength, rle strength intact, decreased strength to lle SKIN: No obvious jaundice or pallor. ASSESSMENT AND PLAN: Assessment Active Hospital Problems Diagnosis Date Noted SDH (subdural hematoma) (HCC) 12/23/2024 Trauma 12/23/2024 Fall 12/23/2024 Current use of buttermaker anticoagulation 12/23/2024 Scalp abrasion 12/23/2024 Neuropathy 12/23/2024 Left leg weakness 12/23/2024 Primary hypertension 12/23/2024 Chronic Chronic atrial fibrillation (HCC) 12/23/2024 Chronic 84 year old male PMH afib (on xarelto), CHRISTOPHER, HTN, melanoma, sp mechanical ground level fall on 12/20 originally presented to [facility] Kcentra given prior to transfer, transferred to [facility] 12/23 for SDH. Imaging performed: - CTHN, CTAHN, CT CAP, MRI brain Traumatic Injuries: - large right parafalcine SDH -mild right to left shift of midline Hospital Course: - 12/20 presented to [place] ED following ground level fall, acute SDH noted in CTA H/N, Kcentra and Keppra given -12/23 transferred to [facility] -12/24 repeat CTH - slight decreased size of parasagittal component of right subdural hemorr (more content not included)...[facility] 12-24-2024 NoteHNO ID: [id number] Author: CRISTOBAL ANN PA-C Service: Neurosurgery Author Type: Physician Matrix Plater Type: Progress Notes Filed: 12/24/2024 03:23 Note Text: Neurosurgery Progress Note SERVICE DATE: 12/24/2024 SUBJECTIVE: NAEON, continued LLE weakness OBJECTIVE: Vitals: Temp (24hrs), Av.8 ?C (98.2 ?F), Min:36.5 ?C (97.7 ?F), Max:36.9 ?C (98.4 ?F) BP 117/56 Pulse 62 Temp 36.9 ?C (98.4 ?F) (Oral) Resp 27 Ht 190.5 cm (6' 3) Wt 95 kg (209 lb 7 oz) SpO2 95% BMI 26.18 kg/m? O2 Therapy: Nasal Cannula IANDO: Date 12/23/24699 - 12/24/24 0659 12/24/24699 - 12/25/24 0659 Shift 7306-5108 3985-5291 8953-7863 24 Hour Total 7711-3779 6451-6615 5526-4688 24 Hour Total INTAKE PO 90 110 40 240 PO 90 110 40 240 Shift Total 90 110 40 240 OUTPUT Urine 750 915 24 4215 Output ( Indwelling Urinary Catheter 12/23/24 [facility] ) 750 117 88 9595 Shift Total 750 726 34 4981 Weight (kg) 95 95 95 95 95 95 95 95 MEDICATIONS Current Facility-Administered Medications Medication Dose Route Frequency NaCl 0.9% iv flush bag 20 mL INTRAVENOUS PRN potassium chloride ER 20-40 mEq tab(s) (KLOR-CON) 20-40 mEq ORAL/FEEDING TUBE PRN Or potassium chloride iv piggyback 20 mEq/100 mL 20 mEq INTRAVENOUS PRN magnesium sulfate iv piggyback in sterile water 2 g 50 mL 2 g INTRAVENOUS PRN phosphorus 500 mg tab(s) (K PHOS NEUTRAL) 500 mg ORAL/FEEDING TUBE PRN(NO DISPENSE) calcium gluconate iv piggyback 2 g in NaCl (iso-osmotic) 100 mL 2 g INTRAVENOUS PRN(NO DISPENSE) ondansetron 4 mg tab(s) (ZOFRAN) 4 mg ORAL q 6 H PRN Or ondansetron (PF) 4 mg injection (ZOFRAN) 4 mg INTRAVENOUS q 6 H PRN acetaminophen 975 mg tab(s) (TYLENOL) 975 mg ORAL q 6 H oxyCODONE IR 2.5-5 mg tab(s) (ROXICODONE) 2.5-5 mg ORAL q 4 H PRN senna-docusate 8.6-50 mg 1 tablet (SENNA-S) 1 tablet ORAL BID levETIRAcetam 1,000 mg tab(s) (KEPPRA) 1,000 mg ORAL BID iv contrast (radiology procedure) INTRAVENOUS DIRECTED PRN iv contrast (radiology procedure) INTRAVENOUS DIRECTED PRN iv contrast (radiology procedure) INTRAVENOUS DIRECTED PRN Labs: Recent Labs 12/24/24 0235 12/23/24 1040 NA -- 138 K -- 4.2 CHLOR -- 105 CO2 -- 19* BUN -- 12 CREAT -- 0.77 GLUC -- 110* ANION -- 14 CA -- 8.5 ALB -- 3.6* AST -- 18 ALT -- 10 ALKPHOS -- 88 TBILI -- 1.0 WBC 4.93 6.62 HB 12.5* 14.5 HCT 38.4* 45.4 PLT 188 203 INR -- 1.2 Exam: GENERAL: Awake and alert; NAD; cooperative; pleasant NEURO: Orientedx3; speech clear and fluent; HELMS; no arm drift STRENGTH: RUE/RLE 5/5, LUE 5/5 except for pain limited 4/5 left deltoid, 2/5 left hip flexors, quad, hamstring, 1/5 left dorsiflexion and plantar flexion HEENT: Normocephalic; perrl/eomi; no facial droop LUNGS: Unlabored breathing on room air CARDIAC: Rate and rhythm as above EXTREMITIES: No deformities, No edema SKIN: Skin color normal; Temperature normal; no rashes or lesions ASSESSMENT AND PLAN: Mr. Yañez is a 84 year old male with hx of afib on Zarelto and HTN who presents from OSH after a fall. CT head indicated left SDH and falx SDH. -Neuro as above -CT head and MRI performed last evening reviewed, worsening falx SDH. -KCentra given at OSH- discussed with Dr. Coppola consideration of further reversal, not considering at this current time -Continue to hold AC/AP -Keppra 1000mg BID for 14 doses -Continue ICU admission with Q1H neuro checks -HOB >30 -Hold DVT PPX chemo- may start 48hrs post stable scan (not currently stable) -Plan for repeat CTH in am -Further recommendations pending am rounds Parts of this note may have been copied from one of my previous notes and remain pertinent. The documentation has been reviewed and edited as necessary to support the clinical decision making for today's visit. SIGNATURE: Cristobal Ann PA-C PATIENT NAME: Sung Yañez DATE: December 24, 2024 TIME: 3:19 AM Pager: [facility] Discharge summary [facility] Medical Records Department [address] [place] [id number] Emergency Department Summary 12/23/24 MR#: [id number] Acct: [id number] Name: SUNG YAÑEZ Rep #:[id number] : 1940 84 From: Frankie Rodriguez PCP: Dr. Briseida Vergara MD Status:REG ER Location: ED HPI History of Present Illness Chief Complaint: Numb/Ting PFSH PFSH Medical History Cancer Ambulates with cane History of edema History of echocardiogram History of stress test H/O Mohs micrographic surgery for skin cancer History of atrial fibrillation Arthritis Prostate disease History of hiatal hernia Former smoker CPAP (continuous positive airway pressure) dependence Sleep apnea Cardiology follow-up encounter Urinary tract infection with hematuria Urinary frequency Bilateral lower extremity edema Phlebitis of superficial vein of right lower extremity Lumbar and sacral osteoarthritis Lumbar disc displacement without myelopathy Lumbar degenerative disc disease Chronic prostatitis Acute cystitis with hematuria Essential (primary) hypertension Back pain Paroxysmal atrial fibrillation BPH (benign prostatic hyperplasia) Home Medications ?Medication ?Instructions ?Recorded ?Last Taken ?Type lisinopril 20 mg tablet 20 mg PO DAILY #90 tabs 05/27 12/17 Unknown Rx rivaroxaban 20 mg tablet (Xarelto) 20 mg PO QPM #90 ta bs 06/20/24 Unknown Rx metoprolol succinate 50 mg 50 mg PO QDAY #90 tabs 07/28 01/17 Unknown Rx tablet,extended release 24 hr Allergy/AdvReac Type Severity Reaction Status Date / Time No Known Allergies Allergy Verified 12/23/24 07:16 Family History Mother Myocardial infarction Father Colon cancer Sister Myocardial infarction Surgical History History of cardiac catheterization History of transurethral resection of prostate History of eye surgery History of lumbar discectomy History of prostatectomy History of left heart catheterization (2011) Social History Smoking Status: Former smoker how long ago did patient quit smokin03/02/1987 alcohol intake: current alcohol intake frequency: a few times a week substance use type: does not use caffeine: No EXAM Physical Exam Const Vital Signs: 12/23/24 07:16 12/23/24 08:12 12/23/24 08:22 Temperature 98.8 F Temperature Source Oral Pulse Rate 67 73 Respiratory Rate 18 18 Blood Pressure 171/93 H 172/84 H Blood Pressure Mean 119 113 Pulse Ox 98 96 Oxygen Delivery Method Room Air 12/23/24 08:27 12/23/24 08:39 12/23/24 08:42 Temperature Temperature Source Pulse Rate 87 80 Respiratory Rate 17 16 Blood Pressure 175/101 H 170/100 H Blood Pressure Mean 125 123 Pulse Ox 96 98 98 Oxygen Delivery Method Room Air Room Air 12/23/24 08:54 12/23/24 08:57 12/23/24 09:12 Temperature Temperature Source Pulse Rate 83 82 85 Respiratory Rate 17 19 H 14 Blood Pressure 170/100 H 152/86 H 152/86 H Blood Pressure Mean 123 108 108 Pulse Ox 98 99 96 Oxygen Delivery Method Room Air Room Air 12/23/24 09:12 Temperature Temperature Source Pulse Rate 86 Respiratory Rate 23 H Blood Pressure 136/81 H Blood Pressure Mean 99 Pulse Ox 97 Oxygen Delivery Method MDM MDM MDM Narrative Medical decision making narrative: HISTORY OF PRESENT ILLNESS: Chief complaint: Fall, paresthesias 84-year-old male history of A-fib on Xarelto, PAD, hypertension presents with paresthesias that he relates to a fall that he suffered on Monday (12/20/2024). He states he was doing well after the fallbut then last night (12/22/2024) approximately 11 PM he went to sleep he was last noted to be normal. He states he woke up at 2 with some tingling in weakness in the left side. He notes it issince gotten worse. Denies any facial droop, slurred speech. REVIEW OF SYSTEMS: Pertinent positives: Fall, head trauma, paresthesias Pertinent negatives: Chest pain PHYSICAL EXAM: Nursing triage notes reviewed, Vital signs reviewed Constitutional: please see [facility] [place] HENT: MMM Eyes: Pupils equal round and reactive to light, Extraocular muscles intact Neck: No stridor, no JVD, full neck ROM Lungs: Clear to auscultation, No wheezing or rales. No increased work of breathing, no conversational dyspnea, no accessory muscle use, no nasal flaring. No respiratory distress noted Heart: Regular rate and rhythm, No murmurs, No rubs and No gallops, 2+ distal pulses (radial, femoral, posterior tibial) in all extremities Abdomen: Soft, there is no tenderness, rigidity, rebound or guarding, no obviousperitoneal signs, no palpable pulsatile abdominal masses, no auscultated abdominal bruit : No CVAT Extremities: No edema Neuro: Alert, oriented, at baseline, no obvious cranial nerve deficits, drift inleft upper extremity, obvious weakness in left lower extremity, initial NIH of 2for weakness in left upper and lower extremity Skin: No rash or lesions noted MEDICAL DECISION MAKING: Chief Complaint: please see HPI External records reviewed: Reviewed prior imaging studies: Reviewed CT scan of the brain from 2019 Factors affecting care: which showed no evidence of ICH Social determinants of health: none History obtained from others: none Consults: Stroke radiology, stroke neurology, [facility] ED provider (Dr. Abraham) [facility] Narrative: The patient was initially hypertensive with a blood pressure 131/93 otherwise afebrile and nontoxic-appearing. Exam with initial NIH of 2 (drift in left upper and lower extremity) I considered the following differential diagnosis: ICH, CVA, Stroke team called. Given the patient is on Xarelto and his last known well wasgreater than 4.5 prior to arrival he was not a candidate for TNK. He was a candidate for thrombectomy. I obtained a broad workup to further determine if the patient was suffering froma life-threatening etiology. ALL IMAGES (IF OBTAINED) HAVE BEEN PERSONALLY REVIEWED AND INTERPRETED BY MYSELF. Non-Con CT of the brain read by myself shows obvious posterior ICH. Per radiology note noted subdural hematoma as well as other abnormalities please seereport below. CT of the head and neck shows no large vessel occlusion CBC without leukocytosis, severe anemia, no thrombocytopenia. No coagulopathy Awaiting chemistries and troponin Upon reevaluation patient is neurologically remained stable, he was controlling his airway. No indication for endotracheal intubation at this time. Repeat vital signs showed blood pressure 136/81 which is at goal given traumatic subdural hematoma. Given concern for ICH emergency measures were placed including Kcentra, labetalol for hypertension and Keppra for seizure prophylaxis. Discussed with nearest trauma center for immediate transfer for neurosurgical evaluation. Family and patient updated. ICH score 1 The patient and/or family, caregivers express understanding. The patient and/orfamily, caregivers agrees with the plan. Shared decision making: I will have a discussion with the patient and or visitors regarding risk/benefits of further testing or admission. They will be made aware of of the risk/benefits inherent in this decision they will be given the opportunity to voice understanding. Total critical care time today provided was at least 60 minutes. This excludes separately billable procedures. Critical care time (if documented) is secondary to the patient having high probability of clinically significant/life threatening deterioration in the patient's condition which required myurgent intervention. Impression: 1. Traumatic ICH 2. Chronic anticoagulation Dispo: Transfer to [facility] for definitive trauma care This note was generated with [employer] dictation software. It may contain incorrectwords, spelling, and punctuation that were not noted in review of the chart prior to signing. Lab Data Labs: Laboratory Results - last 24 hr 12/23/24 08:07 WBC 5.8 RBC 4.42 L Hgb 13.6 Hct 40.9 MCV 92.5 MCH 30.8 MCHC 33.3 RDW Std Deviation 47.2 H RDW Coeff of Chastity 13.8 Plt Count 186 MPV 11.5 Immature Gran % (Auto) 0.300 Neut % (Auto) 68.3 Lymph % (Auto) 15.9 L Falls % (Auto) 12.8 H Eos % (Auto) 2.4 Baso % (Auto) 0.3 Absolute Neuts (auto) 4.0 Absolute Lymphs (auto) 0.93 Nucleated RBC % 0 PT 31.1 H INR 2.9 APTT 36.2 Sodium Cancelled Potassium Cancelled Chloride Cancelled Carbon Dioxide Cancelled Anion Gap Cancelled BUN Cancelled Creatinine Cancelled Estim Creat Clear Calc Cancelled Est GFR (MDRD) Non-Af Cancelled BUN/Creatinine Ratio Cancelled Glucose Cancelled Calcium Cancelled Troponin T High Sens Cancelled Radiography Chest X-Ray - ED: Read by ED Physician Diagnostic Testing: Clinical Impression(s) from Imaging Studies Brain CT 12/23/24 08:03 IMPRESSION: There is a subdural hematoma on the right measuring 0.5 cm in depth in the temporal region. There is hemorrhage extending along the falx and tentorium on the right with a masslike component posteriorly measuring 5.0 by 2.0 cm, axial image 31/48. There is low-density in the deep white matter on the right and left, and in the right occipital andposterior temporal cortex, which may have an acute infarct component. There is midline shift at the anterior aspect, 0.4 cm towards the left. Critical results were discussed with Dr. Yu by Dr. Nichole at the time ofdictation. Reading Location: [facility] Head/Neck CTA 12/23/24 08:03 IMPRESSION: The ascending aorta is dilated to 4.1 cm in AP diameter. There is no significant stenosis or occlusion identified in the carotid or vertebral system. There is no significant stenosis or occlusion identified in the intracranial arteries. Reading Location: [facility] Discharge Plan Triage Chief Complaint: Numb/Ting ED Provider: Frankie Yu Dx/Rx/DC Orders Prescriptions: No Action Xarelto 20 mg tablet 20 mg PO QPM Qty: 90 3RF Rx Instructions: must administer with evening meal lisinopril 20 mg tablet 20 mg PO DAILY Qty: 90 3RF metoprolol succinate 50 mg tablet extended release 24 hr 50 mg PO QDAY Qty: 90 3RF Primary Care Provider: Briseida Vergara Referrals: Briseida Vergara MD [Primary Care Provider] - Print Language: Mohawk What to do if you have Problems For any increased pain, shortness of breath, bleeding, nausea or vomiting, chestpain, or any unexpected problems, contact your Primary Care Provider. Call [facility] ([phone]) or report tothe closest Emergency Room. Call 911 if necessary. 12/23/24 0940 Cosigner Signature (if applicable): CC: Dr. Briseida Vergara MD ~ Signed [facility]06-30-2025 Radiology Diagnostic study note [facility] Imaging Services [address] [place], [place] [address] STROKE CTA Head AND Neck W/Con MR#: [id number] Acct: [id number] Name: SUNG YAÑEZ Rep #: [id number] : 1940 84 From: Rhonda Nichole MD PCP: Dr. Briseida Vergara MD Status: REG ER Study:STROKE CTA Head AND Neck W/Con Date of Exam: 12/23/24 Exam# [id number] Ordering Dr: Katelynn Yu DO PROCEDURE: STROKE CTA HEAD AND NECK W/CON 12/23/2024 REASON FOR EXAM: NEURO DEFICIT, ACUTE, STROKE SUSPECTED TECHNIQUE: STROKE CTA HEAD AND NECK W/CON Multiplanar Sagittal and Coronal images were obtained. CONTRAST: 100 cc Isovue 370 One or more dose reduction techniques were used (e.g., Automated exposure control, adjustment of the mA and/or kV according to patient size, use of iterative reconstruction technique). RADIATION DOSE SUMMARY: DLP: 880 mGycm COMPARISON: None FINDINGS: Aortic Arch: The ascending aorta is dilated to 4.1 cm in AP diameter. Brachiocephalic and Subclavians: Patent RIGHT Carotid: Right CCA: Patent plaque is noted. Right ICA: Patent Maximum stenosis (NASCET): 0 % Right ECA: Patent LEFT Carotid: Left CCA: Patent plaque is noted. Left ICA: Patent Maximum stenosis (NASCET): 0 % Left ECA: Patent Vertebrals: Patent RIGHT Vertebral: Patent LEFT Vertebral: Patent Anatomy: Unremarkable Aneurysm or avm: None Anterior cerebral arteries: Patent Middle cerebral arteries: Patent Basilar artery: Patent Posterior cerebral arteries: Patent Other major branches of the posterior circulation: Unremarkable Major venous structures: Patent Other findings: Neck: Subdural and parafalcine hematoma is noted, discussed separately. 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 There is no significant stenosis or occlusion identified in the carotid or vertebral system. There is no significant stenosis or occlusion identified in the intracranial arteries. Reading [facility] CC: Dr. Briseida Vergara MD; Dr. Frankie Yu DO ~ Hypoid Gear Tester: Signed [facility]06-30-2025 Radiology Diagnostic study note [facility] Imaging Services [address] [place], [place] [address] STROKE Brain/Head without Cont MR#: [id number] Acct: [id number] Name: SUNG YAÑEZ Rep #: [id number] : 1940 M 84 From: Rhonda Nichole MD PCP: Dr. Briseida Vergara MD Status: REG ER Study:STROKE Brain/Head without Cont Date of Exam: 12/23/24 Exam# [id number] Ordering Dr: Katelynn Yu DO EXAM: NONCONTRAST CT SCAN OF THE HEAD CLINICAL HISTORY: Acute stroke COMPARISON: May 25, 2020 TECHNIQUE: Serial axial series through the head were obtained without contrast. 2-D coronaland sagittal reformats were then obtained. FINDINGS: Brain: There is a subdural hematoma on the right measuring 0.5 cm in depth in the temporal region. There is hemorrhage extending along the falx and tentorium on the right with a masslike component posteriorly measuring 5.0 by 2.0 cm, axial image 31/48. There is low-density in the deep white matter on the right and left, and in the right occipital andposterior temporal cortex, which may have an acute infarct component. There is midline shift at the anterior aspect, 0.4 cm towards the left. The basal cisterns appear intact. Paranasal sinuses: Well-aerated Mastoid air cells: Well-aerated. Calvarium: The bony calvarium is intact. Orbits: The bilateral globes are symmetric, without retrobulbar compressive masslesion or hemorrhage. CT/STROKE Brain/Head without Cont IMPRESSION: There is a subdural hematoma on the right measuring 0.5 cm in depth in the temporal region. There is hemorrhage extending along the falx and tentorium on the right with a masslike component posteriorly measuring 5.0 by 2.0 cm, axial image 31/48. There is low-density in the deep white matter on the right and left, and in the right occipital andposterior temporal cortex, which may have an acute infarct component. There is midline shift at the anterior aspect, 0.4 cm towards the left. Critical results were discussed with Dr. Yu by Dr. Nichole at the time ofdictation. Reading Location: [facility] CC: Dr. Briseida Vergara MD; Dr. Frankie Yu, DO ~ Hypoid Gear Tester: Signed [facility]06-17-2025 [facility] [address] [place] [address]. [address] [place] [address] OFFICE VISIT Date of Service: 12/10/24 MR#: [id number] Acct: [id number] Name: SUNG YAÑEZ Rep #: [id number] : 1940 Provider: LESLEY Crane Age/Sex: 84/M Location: [facility] Status: Signed HPI HPI History of Present Illness Details: SUNG YAÑEZ, is a 84 M who is here today for a cardiovascular follow up. He has a history ofhypertension and paroxysmal atrial fibrillation. His amiodarone was stopped previously due to a change in his DLCO on his PFT. He acknowledges occasional, midsternal, sharp chest pain. This occurs at rest and last for hours. He acknowledges occasional palpitations that he describes as fast. He acknowledges bilateral lower extremity edema with right worse than left. He acknowledges occasional shortness of breath with activity such as getting up to the bathroom at night. This improves with rest. Denies shortness of breath at rest, cough, orthopnea, or PND. He denies lightheadedness, dizziness, near-syncope, or syncope. He denies fatigue or weakness. He does acknowledge balance related issues that he attributes to history of neuropathy. His activity level is stable with regular visits to [facility]. Intake Vital Signs 11/02/23 08:30 11/01/24 07:44 12/10/24 09:41 Height 6 ft 3 in 6 ft 3 in 6 ft 3 in Weight: 210 lb BMI 26.2 BP 129/80 H Blood Pressure Location Lt brachial Position Sitting Respiration 16 Pulse 74 Pulse Source NIBP Intake Visit Reasons: 1 Y FU/MOVED FROM [facility] [employer] Chief Creative Officer Required: No Accompanied by: Is patient in pain?: No Allergies No Known Allergies Allergy (Verified 12/10/24 10:24) Medications ?Medication ?Instructions ?Recorded ?Confirmed ?Type lisinopril 20 mg tablet 20 mg PO DAILY #90 tabs 05/2712/10/24 Rx rivaroxaban 20 mg tablet (Xarelto) 20 mg PO QPM #90 ta bs 06/20/24 12/10/24 Rx metoprolol succinate 50 mg 50 mg PO QDAY #90 tabs 07/2812/10/24 Rx tablet,extended release 24 hr Ejection fraction %: 60 Have you fallen in the past year?: No PFSH Medical History Cancer Ambulates with cane History of edema History of echocardiogram History of stress test H/O Mohs micrographic surgery for skin cancer History of atrial fibrillation Arthritis Prostate disease History of hiatal hernia Former smoker CPAP (continuous positive airway pressure) dependence Sleep apnea Cardiology follow-up encounter Urinary tract infection with hematuria Urinary frequency Bilateral lower extremity edema Phlebitis of superficial vein of right lower extremity Lumbar and sacral osteoarthritis Lumbar disc displacement without myelopathy Lumbar degenerative disc disease Chronic prostatitis Acute cystitis with hematuria Essential (primary) hypertension Back pain Paroxysmal atrial fibrillation BPH (benign prostatic hyperplasia) Surgical History History of cardiac catheterization History of transurethral resection of prostate History of eye surgery History of lumbar discectomy History of prostatectomy History of left heart catheterization (2011) Family History Mother Myocardial infarction Father Colon cancer Sister Myocardial infarction Social History Smoking Status: Former smoker how long ago did patient quit smokin03/02/1987 alcohol intake: current alcohol intake frequency: a few times a week substance use type: does not use caffeine: No ROS Const Const: Negative for fatigue or weakness Eyes Eyes: Negative for change in vision ENT ENT: Positive for balance problems (Neuropathy and left foot drop. Uses cane at times); Negative for dizziness Cardio Chest Pain: Yes Character: sharp Onset: at rest Location: mid sternal Duration: hours Palpitations: Yes (Occasionally) feels like its: fast Edema: Bilateral (Right > left. Relates to neuropathy) Resp Respiratory: Positive for SOB with activity (Occasionally when getting up to bathroom at night. ); Negative for SOB at rest or SOB orthopneaundefinedSOB lying down GI GI: Negative nausea or heartburn Musc Musc: Positive for balance problems (Neuropathy and left foot drop. Uses cane attimes) Neuro Neuro: Negative for dizziness, lightheadedness, near syncope, syncope or weakness Endo Endo: Negative for fatigue Cardiology Exam Const Appearance: cooperative, healthy appearing, comfortable and no acute distress Nutritional Appearance: well nourished and overweight Orientation: alert, awake and oriented x3 Head Head: normal to inspection Ears: hearing grossly normal bilaterally Nose: external nose normal Face and Sinus: face symmetric Mouth: moist mucous membranes Eyes General: appearance normal, both eyes and all related structures Eyelids: eyelids normal EOM: EOM intact bilaterally Neck Neck: normal visual inspection and no JVD Carotids: normal carotid upstroke Chest Chest inspection: normal inspection of the chest, symmetric chest movement and normal respiratory effort; Negative cough Auscultation: Bilateral: Clear to Auscultation Cardio Rate: regular rate Rhythm: regular rhythm and ectopic beats Heart sounds: S1 normal, S2 normal and murmur; Negative rub or gallop Murmur: Grade 1/6 and DORIS loudest LLSB GI GI: normal to inspection Neuro General: patient alert, patient awake, patient oriented x3 and CN's II-XI intactbilaterally Skin Skin: no rashes or lesions noted Extremities Pulses: Normal: Right Posterior Tibial Pulse, Left Posterior Tibial Pulse, RightRadial Pulse and Left Radial Pulse Lower Extremity Edema: +1: Right, Trace: Left and Color Changes: Bilateral (chronic appearing) Psych Psychological: normal affect Supplemental Info Supplemental Information Echo 12/01/20: Normal LV size. Left ventricular systolic function is normal. The estimated ejection fraction is 60 %. Mildly dilated aortic root. Mild (1+) aortic valve insufficiency. Mild (1+) eccentric mitral valve insufficiency. Echo 2019: Normal LV size. Left ventricular systolic function is normal. The estimated ejection fraction is 60 %. Mildly dilated aortic root. Mild (1+) aortic valve insufficiency. Mild (1+) eccentric mitral valve insufficiency. Stress test from 12/06/2023: Conclusion: Normal pharmacologic myocardial perfusion stress test. Preserved ejection fraction. Assessment and Plan Assessment and Plan (1) Paroxysmal atrial fibrillation: Status: Chronic Comment: diagnosed 2011 Plan: [id number] score: 4 (age +2, HTN, PAD) (4.8 % stroke risk) Atrial fibrillation stage: 3A, paroxysmal 12 Lead EC07/24/2023-sinus tachycardia at 103 bpm with first-degree AV block Echocardiogram: 12/01/2020-EF: 60%, normal left and right atrium size. Heart Rate Control: Metoprolol succinate 50 mg p.o. daily Anticoagulation/CVA Protection: Xarelto 20 mg p.o. daily This appears stable. We will continue current medications and we will continue to monitor. (2) Essential (primary) hypertension: Status: Chronic Plan: Patient's blood pressure is well-controlled. We will continue to monitor. We will not make any medication regimen changes. (3) PAD (peripheral artery disease): Status: Acute Comment: Arterial 11/03/22: Right MARGE 1.1, normal. Doppler/PVR waveforms of the right ankle normal at rest. TBI diminished, pedal/digit disease Left MARGE 0.74, moderate arterial insufficiency. Doppler/PVR waveforms of the left ankle moderately diminished at rest. Plan: He was seen with vascular team on 07/06/2023. He is encouraged continue to follow with vascular team. He will continue current medical therapy. Last lipid panel was noted be February 2024 with total cholesterol: 174, HDL: 59, LDL: 94, and triglycerides: 103. Plan Details Additional Comments: Thank you for allowing us to participate in the patients plan of care, if you have any questions please do not hesitate to call. Plan was reviewed with patient/family member along with red flag symptoms. Understanding was acknowledged. Questions were answered to apparent satisfaction. This note was generated using a voice recognition system and there may be incorrect words, spellingor punctuation that were not noted when reviewing the office note prior to saving. Portions of this documentation were copied and pasted from previous office visitnotes to provide a cohesive continuity of the history. The note has been reviewed, edited, and updated, as necessary. Follow Up: 12-15 Months (AUDIO/VISUAL MANAGER) 6 Months (ETL LEAD/PA) Coding Level of Care Code Off vis,est,level 4 Diagnoses Paroxysmal atrial fibrillation I48.0 Essential (primary) hypertension I10 PAD (peripheral artery disease) I73.9 Coding Level of Care Code Off vis,est,level 4 Diagnoses Paroxysmal atrial fibrillation I48.0 Essential (primary) hypertension I10 PAD (peripheral artery disease) I73.9 Clinical Quality Measures Falls Risk Screening/Assistive Devices Have you fallen in the past year?: No Cardiac Ejection fraction %: 60 12/10/24 1108 P CHUNGC> Date _ Mateo Mckeonigneleni Signature: Date (if applicable) CC: Dr. Briseida Vergara MD ~ [facility]06-17-2025 Progress note Author Mateo Crane [facility] Note Date/Time December 10, 2024 11:0 8am [facility] [address] [place], [place] [address] OFFICE VISIT Date of Service: 12/10/24 MR#: [id number] Acct: [id number] Name: SUNG YAÑEZ Rep #: [id number] : 1940 Provider: LESLEY Crane Age/Sex: 84/M Location: [facility] Status: Signed HPI HPI History of Present Illness Details: SUNG YAÑEZ, is a 84 M who is here today for a cardiovascular follow up. He has a history of hypertension and paroxysmal atrial fibrillation. His amiodarone was stopped previously due to a change in his DLCO on his PFT. He acknowledges occasional, midsternal, sharp chest pain. This occurs at rest and last for hours. He acknowledges occasional palpitations that he describes as fast. He acknowledges bilateral lower extremity edema with right worse than left. He acknowledges occasional shortness of breath with activity such as getting up to the bathroom at night. This improves with rest. Denies shortness of breath at rest, cough, orthopnea, or PND. He denies lightheadedness, dizziness, near-syncope, or syncope. He denies fatigue or weakness. He does acknowledge balance related issues that he attributes to history of neuropathy. His activity level is stable with regular visits to [facility]. Intake Vital Signs 11/02/23 08:30 11/01/24 07:44 12/10/24 09:41 Height 6 ft 3 in 6 ft 3 in 6 ft 3 in Weight: 210 lb BMI 26.2 BP 129/80 H Blood Pressure Location Lt brachial Position Sitting Respiration 16 Pulse 74 Pulse Source NIBP Intake Visit Reasons: 1 Y FU/MOVED FROM [facility] [employer] Chief Creative Officer Required: No Accompanied by: Is patient in pain?: No Allergies No Known Allergies Allergy (Verified 12/10/24 10:24) Medications ?Medication ?Instructions ?Recorded ?Confirmed ?Type lisinopril 20 mg tablet 20 mg PO DAILY #90 tabs 05/2712/10/24 Rx rivaroxaban 20 mg tablet (Xarelto) 20 mg PO QPM #90 ta bs 06/20/24 12/10/24 Rx metoprolol succinate 50 mg 50 mg PO QDAY #90 tabs 07/2812/10/24 Rx tablet,extended release 24 hr Ejection fraction %: 60 Have you fallen in the past year?: No PFSH Medical History Cancer Ambulates with cane History of edema History of echocardiogram History of stress test H/O Mohs micrographic surgery for skin cancer History of atrial fibrillation Arthritis Prostate disease History of hiatal hernia Former smoker CPAP (continuous positive airway pressure) dependence Sleep apnea Cardiology follow-up encounter Urinary tract infection with hematuria Urinary frequency Bilateral lower extremity edema Phlebitis of superficial vein of right lower extremity Lumbar and sacral osteoarthritis Lumbar disc displacement without myelopathy Lumbar degenerative disc disease Chronic prostatitis Acute cystitis with hematuria Essential (primary) hypertension Back pain Paroxysmal atrial fibrillation BPH (benign prostatic hyperplasia) Surgical History History of cardiac catheterization History of transurethral resection of prostate History of eye surgery History of lumbar discectomy History of prostatectomy History of left heart catheterization (2011) Family History Mother Myocardial infarction Father Colon cancer Sister Myocardial infarction Social History Smoking Status: Former smoker how long ago did patient quit smokin03/02/1987 alcohol intake: current alcohol intake frequency: a few times a week substance use type: does not use caffeine: No ROS Const Const: Negative for fatigue or weakness Eyes Eyes: Negative for change in vision ENT ENT: Positive for balance problems (Neuropathy and left foot drop. Uses cane at times); Negative for dizziness Cardio Chest Pain: Yes Character: sharp Onset: at rest Location: mid sternal Duration: hours Palpitations: Yes (Occasionally) feels like its: fast Edema: Bilateral (Right > left. Relates to neuropathy) Resp Respiratory: Positive for SOB with activity (Occasionally when getting up to bathroom at night. ); Negative for SOB at rest or SOB orthopneaundefinedSOB lying down GI GI: Negative nausea or heartburn Musc Musc: Positive for balance problems (Neuropathy and left foot drop. Uses cane attimes) Neuro Neuro: Negative for dizziness, lightheadedness, near syncope, syncope or weakness Endo Endo: Negative for fatigue Cardiology Exam Const Appearance: cooperative, healthy appearing, comfortable and no acute distress Nutritional Appearance: well nourished and overweight Orientation: alert, awake and oriented x3 Head Head: normal to inspection Ears: hearing grossly normal bilaterally Nose: external nose normal Face and Sinus: face symmetric Mouth: moist mucous membranes Eyes General: appearance normal, both eyes and all related structures Eyelids: eyelids normal EOM: EOM intact bilaterally Neck Neck: normal visual inspection and no JVD Carotids: normal carotid upstroke Chest Chest inspection: normal inspection of the chest, symmetric chest movement and normal respiratory effort; Negative cough Auscultation: Bilateral: Clear to Auscultation Cardio Rate: regular rate Rhythm: regular rhythm and ectopic beats Heart sounds: S1 normal, S2 normal and murmur; Negative rub or gallop Murmur: Grade 1/6 and DORIS loudest LLSB GI GI: normal to inspection Neuro General: patient alert, patient awake, patient oriented x3 and CN's II-XI intactbilaterally Skin Skin: no rashes or lesions noted Extremities Pulses: Normal: Right Posterior Tibial Pulse, Left Posterior Tibial Pulse, RightRadial Pulse and Left Radial Pulse Lower Extremity Edema: +1: Right, Trace: Left and Color Changes: Bilateral (chronic appearing) Psych Psychological: normal affect Supplemental Info Supplemental Information Echo 12/01/20: Normal LV size. Left ventricular systolic function is normal. The estimated ejection fraction is 60 %. Mildly dilated aortic root. Mild (1+) aortic valve insufficiency. Mild (1+) eccentric mitral valve insufficiency. Echo 2019: Normal LV size. Left ventricular systolic function is normal. The estimated ejection fraction is 60 %. Mildly dilated aortic root. Mild (1+) aortic valve insufficiency. Mild (1+) eccentric mitral valve insufficiency. Stress test from 12/06/2023: Conclusion: Normal pharmacologic myocardial perfusion stress test. Preserved ejection fraction. Assessment and Plan Assessment and Plan (1) Paroxysmal atrial fibrillation: Status: Chronic Comment: diagnosed 2011 Plan: FIC4AM5-ZIMe score: 4 (age +2, HTN, PAD) (4.8 % stroke risk) Atrial fibrillation stage: 3A, paroxysmal 12 Lead EC07/24/2023-sinus tachycardia at 103 bpm with first-degree AV block Echocardiogram: 12/01/2020-EF: 60%, normal left and right atrium size. Heart Rate Control: Metoprolol succinate 50 mg p.o. daily Anticoagulation/CVA Protection: Xarelto 20 mg p.o. daily This appears stable. We will continue current medications and we will continue to monitor. (2) Essential (primary) hypertension: Status: Chronic Plan: Patient's blood pressure is well-controlled. We will continue to monitor. We will not make any medication regimen changes. (3) PAD (peripheral artery disease): Status: Acute Comment: Arterial 11/03/22: Right MARGE 1.1, normal. Doppler/PVR waveforms of the right ankle normal at rest. TBI diminished, pedal/digit disease Left MARGE 0.74, moderate arterial insufficiency. Doppler/PVR waveforms of the left ankle moderately diminished at rest. Plan: He was seen with vascular team on 07/06/2023. He is encouraged continue to follow with vascular team. He will continue current medical therapy. Last lipid panel was noted be February 2024 with total cholesterol: 174, HDL: 59, LDL: 94, and triglycerides: 103. Plan Details Additional Comments: Thank you for allowing us to participate in the patients plan of care, if you have any questions please do not hesitate to call. Plan was reviewed with patient/family member along with red flag symptoms. Understanding was acknowledged. Questions were answered to apparent satisfaction. This note was generated using a voice recognition system and there may be incorrect words, spelling or punctuation that were not noted when reviewing the office note prior to saving. Portions of this documentation were copied and pasted from previous office visitnotes to provide a cohesive continuity of the history. The note has been reviewed, edited, and updated, as necessary. Follow Up: 12-15 Months (AUDIO/VISUAL MANAGER) 6 Months (ETL LEAD/PA) Coding Level of Care Code Off vis,est,level 4 Diagnoses Paroxysmal atrial fibrillation I48.0 Essential (primary) hypertension I10 PAD (peripheral artery disease) I73.9 Coding Level of Care Code Off vis,est,level 4 Diagnoses Paroxysmal atrial fibrillation I48.0 Essential (primary) hypertension I10 PAD (peripheral artery disease) I73.9 Clinical Quality Measures Falls Risk Screening/Assistive Devices Have you fallen in the past year?: No Cardiac Ejection fraction %: 60 12/10/24 1108 <Electronically signed by Mateo SUTTON> Date _ Mateo WILKESC Cosigner Signature: Date (if applicable) CC: Dr. Briseida Vergara MD ~ [facility] Work Phone: 1(803) 758-121505-09-2025 Evaluation note* Diagnosis Onset Date Resolution Status Admit Date Cat scratch of right forearm acute November 01, 2024 7:35am PAD (peripheral artery disease) acut e December 10, 2024 10:20am Essential (primary) hypertension chronic December 10, 2024 10:20am Paroxysmal atrial fibrillation chron ic December 10, 2024 10:20am [facility] Work Phone: 1(909) 142-732905-09-2025 Evaluation note* Diagnosis Onset Date Resolution Status Admit Date Cat scratch of right forearm inactiv e November 01, 2024 7:35am Essential (primary) hypertension chr onic December 10, 2024 10:20am PAD (peripheral artery disease) deputy general counsel vaughn December 10, 2024 10:20am Paroxysmal atrial fibrillation chron ic December 10, 2024 10:20am Acute left-sided weakness acute December 30, 2024 6:14pm 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 acute December 30 6:14pm Debility acute December 30, 2024 6:14pm Dehydration acute December 30 6:14pm Heme positive stool acute December 30, 2024 6:14pm History of melanoma acute December 30, 2024 6:14pm Hospital-acquired pneumonia acute December 30, 2024 6:14pm Hyponatremia acute December 30 6:14pm Intracerebral bleed due to trauma acute December 30, 2024 6 :14pm Ischemic cerebrovascular accident (CVA) acute December 30, 2024 6 :14pm Mild cognitive impairment acute December 30, 2024 6:14pm Near syncope acute December 30 6:14pm Paresthesias acute December 30 6:14pm Subluxation of left shoulder joint acute December 30, 2024 6 :14pm Weight loss, non-intentional acute December 30, 2024 6:14pm Ascending aorta dilation chronic December 30, 2024 6:14pm Chronic anticoagulation chronic J felipe2024 6:14pm Depression chronic December 30, 2024 6:14pm Essential (primary) hypertension chr onic December 30, 2024 6:14pm Fecal incontinence chronic December 302024 6:14pm PAD (peripheral artery disease) deputy general counsel vaughn December 30, 2024 6:14pm Paroxysmal atrial fibrillation chron ic December 30, 2024 6:14pm Peripheral neuropathy chronic Dec 6:14pm Pulmonary nodules chronic December 6:14pm Sleep apnea chronic December 30 6:14pm Urinary incontinence chronic December 30, 2024 6:14pm Venous insufficiency (chroni c) (peripheral) chronic December 30, 2024 6 :14pm Acute cystitis with hematuria resolv ed December 30, 2024 6:14pm Acute delirium resolved December 30, 2024 6:14pm Decubitus ulcer resolved December 30, 2024 6:14pm Laterocollis resolved December 30 6:14pm Torticollis, acquired resolved Dec 6:14pm [facility] Work Phone: 1(456) 111-570405-09-2025 Evaluation note* Diagnosis Onset Date Resolution Status Admit Date Cat scratch of right forearm inactiv e November 01, 2024 7:35am Essential (primary) hypertension tricia ctive December 10, 2024 10:20am PAD (peripheral artery disease) inac tive December 10, 2024 10:20am Paroxysmal atrial fibrillation inact jaden December 10, 2024 10:20am Acute left-sided weakness acute December 30, 2024 6:14pm Debility acute December 30, 2024 6:14pm Dehydration acute December 30 6:14pm Heme positive stool acute December 30, 2024 6:14pm Intracerebral bleed due to trauma acute December 30, 2024 6 :14pm Mild cognitive impairment acute December 30, 2024 6:14pm Paresthesias acute December 30 6:14pm Subluxation of left shoulder joint acute December 30, 2024 6 :14pm Weight loss, non-intentional acute December 30, 2024 6:14pm Ascending aorta dilation chronic December 30, 2024 6:14pm Depression chronic December 30, 2024 6:14pm Fecal incontinence chronic December 302024 6:14pm Pulmonary nodules chronic December 6:14pm Urinary incontinence chronic December 30, 2024 6:14pm Acute cystitis with hematuria resolv ed December 30, 2024 6:14pm Acute delirium resolved December 30, 2024 6:14pm 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 resolved December 30 6:14pm Decubitus ulcer resolved December 30, 2024 6:14pm Hospital-acquired pneumonia resolved December 30, 2024 6:14pm Hyponatremia resolved December 30 6:14pm Laterocollis resolved December 30 6:14pm Near syncope resolved December 30 6:14pm Torticollis, acquired resolved Dec 6:14pm Chronic anticoagulation inactive J 2024 6:14pm Essential (primary) hypertension tricia ctive December 30, 2024 6:14pm History of melanoma inactive December 30, 2024 6:14pm Ischemic cerebrovascular accident (CVA) inactive December 30, 2024 6 :14pm PAD (peripheral artery disease) inac tive December 30, 2024 6:14pm Paroxysmal atrial fibrillation inact jaden December 30, 2024 6:14pm Peripheral neuropathy inactive Dec 6:14pm Sleep apnea inactive December 30 6:14pm Venous insufficiency (chroni c) (peripheral) inactive December 30, 2024 6 :14pm [facility] [employer] Work Phone: 1(158) 351-479003-04-2024 Discharge summary Author Spenser Estrada [facility] August 28, 2023 7:36am Note Date/Time August 28, 2023 7:36 am [facility] Medical Records Department [address] [place] [id number] Discharge Summary 08/28/23 0735 MR#: [id number] Acct: [id number] Name: SUNG YAÑEZ Rep #:[id number] : 1940 83 From: Spenser Estrada MD PCP: Dr. Briseida Vergara MD Status:[facility] Location: [place] [address] Providers Primary Care Physician: Dr. Briseida Vergara MD Reason For Visit: Excision, Mass, RIGHT NECK, Medications at Discharge Home Medications rivaroxaban 20 mg tablet (Xarelto) 20 mg PO QPM #90 tabs 06/23/23 lisinopril 20 mg tablet 20 mg PO DAILY #90 tabs 07/21/23 metoprolol succinate 50 mg tablet,extended release 24 hr See Rx Instructions .Route .COMPLEX #90 tabs 07/27/23 Weight / BMI Weight Weight: 98.6 kg Body Mass Index (BMI) 27.1 D/C Instructions Discharge Diet: No restrictions Additional Instructions: Keep incision dry until 08/30/23 Please Follow Up With: Spenser Estrada MD When: tomorrow Meaningful Use Info Meaningful Use Diagnoses (Choose all that apply): None applicable Discharge Plan Admission Attending Provider: Spenser Estrada Primary Care Provider: Briseida Vergara Discharge Orders/Prescriptions Prescriptions: No Action Xarelto 20 mg tablet 20 mg PO QPM Qty: 90 3RF Rx Instructions: must administer with evening meal lisinopril 20 mg tablet 20 mg PO DAILY Qty: 90 3RF metoprolol succinate 50 mg tablet extended release 24 hr See Rx Instructions .ROUTE .COMPLEX Qty: 90 3RF Dose Instruction: TAKE 1 TABLET BY MOUTH EVERY DAY Rx Instructions: TAKE 1 TABLET BY MOUTH EVERY DAY Referrals / Follow Up: Briseida Vergara MD [Primary Care Provider] - Disposition Disposition (needs filled in before D/C Order can be placed): Home, Self Care 08/28/23 0736 <Electronically signed by Spenser Estrada MD> Cosigner Signature (if applicable): CC: Dr. Briseida Vergara MD; Dr. Spenser Estrada MD~ Signed [facility] Work Phone: 1(314) 858-273203-04-2024 Procedure [facility] 06-22-2023 History and physical note Author Ankit Alvarenga [facility] June 22, 2023 9:09am Note Date/Time June 22, 2023 8:29am [facility] Medical Records Department [address] [place] [address] History & Physical Exam 06/22/23821 MR#: [id number] Acct: [id number] Name: SUNG YAÑEZ Rep #:[id number] : 1940 83 From: Avis CHAUDHARY PCP: Dr. Briseida Vergara MD Status:REG [facility] Location: [facility] HPI - General General Date of Service: 06/22/23 HPI Narrative SUNG YAÑEZ, is a 83 M who presents today for planned venogram to assess for central venous compression with intervention if identified. He is noted to be CEAP C5 bilaterally with persistent edema not sufficiently improved by compression. His lower extremity edema also seems to be contributing to balance issues. He does have a history of venous ulcerations bilaterally. His medical history is otherwise significant for Afib (on Xarelto), HTN, lumbar DDD s/p L3-4 discectomy/laminectomy/foraminotomy. He reports he recently increased his metoprolol back to 50mg daily. Otherwise, no medication changes orchanges to his medical history. He denies any N/V, F/C, CP, SOB, palpitations, syncope/presyncope, cough, or recent illness. No complaints today. He held 2 doses of Xarelto as directed. He has not had anything to eat or drink since midnight except for a small sip of water to take his morning medications. [facility] Medical History Acute cystitis with hematuria Arthritis Back pain Bilateral lower extremity edema BPH (benign prostatic hyperplasia) Cardiology follow-up encounter Chronic prostatitis CPAP (continuous positive airway pressure) dependence Essential (primary) hypertension Former smoker H/O Mohs micrographic surgery for skin cancer History of atrial fibrillation History of hiatal hernia Lumbar and sacral osteoarthritis Lumbar degenerative disc disease Lumbar disc displacement without myelopathy Paroxysmal atrial fibrillation Phlebitis of superficial vein of right lower extremity Prostate disease Sleep apnea Urinary frequency Urinary tract infection with hematuria Home Medications lisinopril 20 mg tablet 20 mg PO DAILY #90 tabs 10/05/22 [Rx Last Taken 06/22/23] rivaroxaban 20 mg tablet (Xarelto) 20 mg PO QPM 01/31/23 [History Last Taken 06/20/23] metoprolol succinate 50 mg tablet,extended release 24 hr (Toprol XL) 25 mg (1/2 x 50 mg) PO DAILY #90 tabs 05/17/23 [Rx Last Taken 06/22/23] Allergy/AdvReac Type Severity Reaction Status Date / Time No Known Allergies Allergy Verified 05/11/23 15:01 Family History Mother Myocardial infarction Father Colon cancer Sister Myocardial infarction Surgical History History of eye surgery History of left heart catheterization (2011) History of lumbar discectomy History of prostatectomy History of transurethral resection of prostate Social History Smoking Status: Former smoker how long ago did patient quit smokin03/02/1987 alcohol intake: current alcohol intake frequency: a few times a week substance use type: does not use caffeine: No Vital Signs Vital Signs Vital Signs: Weight Weight: 222 lb Body Mass Index (BMI) 27.7 Physical Exam Narrative Const General: cooperative, healthy appearing, comfortable, no acute distress and welldeveloped Nutritional Appearance: well nourished Orientation: alert, awake and oriented x3 HENMT Head: normocephalic and atraumatic Ears: hearing grossly normal bilaterally Nose: external nose normal Eyes General: appearance normal, both eyes and all related structures EOM: EOM intact bilaterally Neck Neck: normal visual inspection, full ROM, no lymphadenopathy and trachea midline Thyroid: thyroid normal Lymphatic: no lymphadenopathy noted Resp Effort & Inspection: normal respiratory effort, able to speak in complete sentences, symmetric chest movement, no audible wheezes, not labored, no stridorand no use of accessory muscles Cardio Rate: regular rate Rhythm: regular rhythm Pulses: brachial pulses present and radial pulses present Skin General: no rashes or lesions noted and no erythema Wounds: no wounds Neuro Cranial Nerves: CN's II-XI intact bilaterally and EOM intact bilaterally Speech: speech normal Gait: normal gait Motor: strength 5/5 throughout Sensory Exam: no sensory deficits noted Extremities Pulses: Normal: Right Dorsalis Pedis Pulse and Right Posterior Tibial Pulse and Absent: Left Dorsalis Pedis Pulse and Left Posterior Tibial Pulse Lower Extremity Edema: +1: Bilateral Veins: Bilateral: Reticular Veins, Bilateral: Hemosiderin and Bilateral: Lipodermatosclerosis Psych Appearance: grossly normal and well kempt Mental Status: mental status grossly normal Mood: congruent mood Speech and Movement: speech and movement normal Thought Content: normal Judgment: judgment good Results Lab / Micro Data 06/22/23 08:23 06/22/23 08:23 Assessment & Plan Assessment/Plan (1) Venous insufficiency (chronic) (peripheral): PLAN: We discussed the procedure including risks, benefits, and recovery. He remains agreeable to proceed. Plan is for venogram possible intervention today. Further plan pending results of procedure. Patient is scheduled for outpatient follow-up on 07/13/23. 06/22/23 0332 <Electronically signed by Avis CHAUDHARY> Cosigner Signature (if applicable): 06/22/23 0909 <Electronically signed by Ankit Alvarenga MD> CC: NEENA Rivera; Dr. Ankit Alvarenga MD; Dr. Briseida Vergara MD~ Signed [facility] Work Phone: 1(839) 482-787412-28-2023 Procedure [facility] 05-09-2023 Discharge summary Author Hortencia Jaimes [facility] May 09, 2023 7:32am Note Date/Time May 09, 2023 7:32am [facility] Physical Therapy [facility] [address] [place] [address] / REHABILITATION SERVICES DISCHARGE SUMMARY MR#: [id number] Acct: [id number] Name: SUNG YAÑEZ Rep #: [id number] : 1940 83 From: Hortencia Pace Referring Dr.: SREE Silva Status: REG RCR Insurance: MEDICARE PART A B ANTH Discharge Summary D/C summary: It has been my pleasure to treat SUNG YAÑEZ referred by Dr. Adal Silva DPM, with the diagnosis of idiopathic neuropathy for a total of 9 visit(s). Discharge Date: 05/09/23 Please see the following information for a summary of their discharge status. Subjective Subjective: He sees the Dr peterson. One side effect of his BP med is swollen ankles. He reports that he can move his ankles but they are tight and swollen. He was having touble with decrease circulation in his ankles. Pt feels that hisbalance is a little better. He is comfortable with his gym routine and did it on his own yesterday and today. Standing SW on a hill still bothers him some but he is feeling a little more confident Overall Improvement % Improvement: 50 Objective Objective/Function: FGA 11 improved CATSIB 100 improved Improved ability to walk with horizontal and vertical head turns (vertical is still off compared to horizontal) desktop support engineer object from the floor: wider TONY but able to do it steadily Goals Goal 1:: I HEP Goal Progress: Goal Met Goal 2:: Be able to order picker an object from the floor with CGA without falling over Goal Progress: Progressing Goal 3:: Be able to walk with vertical and horizontal head turns without LOB or veering Goal Progress: Progressing Goal 4:: Increase balance by increasing FGA score (FGA at time of eval was 6) Goal Progress: Goal Met Goal 5:: Increase balance by increasing CATSIB score (CATSIB at time of eval was97) Goal Progress: Goal Met Plan Plan: DC PT to I gym routine D/C Information Discharge Comments: DC PT to I gym routine d/c sentence: If there are questions or concerns regarding this patient's physical therapy, please feel free to call me at [phone]. Thank you for the referral of thispatient. Sincerely, MATT Zuleta Balance/Gait/Functional tests Balance/Special Test Scores Functional Gait Assessment Score: 11 % Disability: 63.3400 CATSIB Score (Max score 120 seconds): 100 Lower Extremity Functional Score: 40 Improvement % Improvement: 50 <Electronically signed by Hortencia Jaimes MPT> 05/09/23 0732 CC: DPM Dr. Adal Silva; Dr. Briseida Vergara MD ~ Signed [facility] Work Phone: 1(778) 793-936908-16-2023 Procedure [facility] Discharge summary Author Frankie Yu [facility] Note Date/Time December 23, 2024 9:27 am [facility] Medical Records Department [address] [place] [id number] Emergency Department Summary 12/23/24 MR#: [id number] Acct: [id number] Name: SUNG YAÑEZ Rep #:[id number] : 1940 84 From: Frankie Rodriguez PCP: Dr. Briseida Vergara MD Status:REG ER Location: ED HPI History of Present Illness Chief Complaint: Numb/Ting PFSH PFSH Medical History Cancer Ambulates with cane History of edema History of echocardiogram History of stress test H/O Mohs micrographic surgery for skin cancer History of atrial fibrillation Arthritis Prostate disease History of hiatal hernia Former smoker CPAP (continuous positive airway pressure) dependence Sleep apnea Cardiology follow-up encounter Urinary tract infection with hematuria Urinary frequency Bilateral lower extremity edema Phlebitis of superficial vein of right lower extremity Lumbar and sacral osteoarthritis Lumbar disc displacement without myelopathy Lumbar degenerative disc disease Chronic prostatitis Acute cystitis with hematuria Essential (primary) hypertension Back pain Paroxysmal atrial fibrillation BPH (benign prostatic hyperplasia) Home Medications ?Medication ?Instructions ?Recorded ?Last Taken ?Type lisinopril 20 mg tablet 20 mg PO DAILY #90 tabs 05/27 12/17 Unknown Rx rivaroxaban 20 mg tablet (Xarelto) 20 mg PO QPM #90 ta bs 06/20/24 Unknown Rx metoprolol succinate 50 mg 50 mg PO QDAY #90 tabs 07/28 01/17 Unknown Rx tablet,extended release 24 hr Allergy/AdvReac Type Severity Reaction Status Date / Time No Known Allergies Allergy Verified 12/23/24 07:16 Family History Mother Myocardial infarction Father Colon cancer Sister Myocardial infarction Surgical History History of cardiac catheterization History of transurethral resection of prostate History of eye surgery History of lumbar discectomy History of prostatectomy History of left heart catheterization (2011) Social History Smoking Status: Former smoker how long ago did patient quit smokin03/02/1987 alcohol intake: current alcohol intake frequency: a few times a week substance use type: does not use caffeine: No EXAM Physical Exam Const Vital Signs: 12/23/24 07:16 12/23/24 08:12 12/23/24 08:22 Temperature 98.8 F Temperature Source Oral Pulse Rate 67 73 Respiratory Rate 18 18 Blood Pressure 171/93 H 172/84 H Blood Pressure Mean 119 113 Pulse Ox 98 96 Oxygen Delivery Method Room Air 12/23/24 08:27 12/23/24 08:39 12/23/24 08:42 Temperature Temperature Source Pulse Rate 87 80 Respiratory Rate 17 16 Blood Pressure 175/101 H 170/100 H Blood Pressure Mean 125 123 Pulse Ox 96 98 98 Oxygen Delivery Method Room Air Room Air 12/23/24 08:54 12/23/24 08:57 12/23/24 09:12 Temperature Temperature Source Pulse Rate 83 82 85 Respiratory Rate 17 19 H 14 Blood Pressure 170/100 H 152/86 H 152/86 H Blood Pressure Mean 123 108 108 Pulse Ox 98 99 96 Oxygen Delivery Method Room Air Room Air 12/23/24 09:12 Temperature Temperature Source Pulse Rate 86 Respiratory Rate 23 H Blood Pressure 136/81 H Blood Pressure Mean 99 Pulse Ox 97 Oxygen Delivery Method [facility] Narrative Medical decision making narrative: HISTORY OF PRESENT ILLNESS: Chief complaint: Fall, paresthesias 84-year-old male history of A-fib on Xarelto, PAD, hypertension presents with paresthesias that he relates to a fall that he suffered on Monday (12/20/2024). He states he was doing well after the fall but then last night (12/22/2024) approximately 11 PM he went to sleep he was last noted to be normal. He states he woke up at 2 with some tingling in weakness in the left side. He notes it issince gotten worse. Denies any facial droop, slurred speech. REVIEW OF SYSTEMS: Pertinent positives: Fall, head trauma, paresthesias Pertinent negatives: Chest pain PHYSICAL EXAM: Nursing triage notes reviewed, Vital signs reviewed Constitutional: please see mdm HENT: MMM Eyes: Pupils equal round and reactive to light, Extraocular muscles intact Neck: No stridor, no JVD, full neck ROM Lungs: Clear to auscultation, No wheezing or rales. No increased work of breathing, no conversational dyspnea, no accessory muscle use, no nasal flaring. No respiratory distress noted Heart: Regular rate and rhythm, No murmurs, No rubs and No gallops, 2+ distal pulses (radial, femoral, posterior tibial) in all extremities Abdomen: Soft, there is no tenderness, rigidity, rebound or guarding, no obviousperitoneal signs, no palpable pulsatile abdominal masses, no auscultated abdominal bruit : No CVAT Extremities: No edema Neuro: Alert, oriented, at baseline, no obvious cranial nerve deficits, drift inleft upper extremity, obvious weakness in left lower extremity, initial NIH of 2for weakness in left upper and lower extremity Skin: No rash or lesions noted MEDICAL DECISION MAKING: Chief Complaint: please see HPI External records reviewed: Reviewed prior imaging studies: Reviewed CT scan of the brain from 2019 Factors affecting care: which showed no evidence of ICH Social determinants of health: none History obtained from others: none Consults: Stroke radiology, stroke neurology, [facility] ED provider (Dr. Abraham) MDM Narrative: The patient was initially hypertensive with a blood pressure 131/93 otherwise afebrile and nontoxic-appearing. Exam with initial NIH of 2 (drift in left upper and lower extremity) I considered the following differential diagnosis: ICH, CVA, Stroke team called. Given the patient is on Xarelto and his last known well wasgreater than 4.5 prior to arrival he was not a candidate for TNK. He was a candidate for thrombectomy. I obtained a broad workup to further determine if the patient was suffering froma life-threatening etiology. ALL IMAGES (IF OBTAINED) HAVE BEEN PERSONALLY REVIEWED AND INTERPRETED BY MYSELF. Non-Con CT of the brain read by myself shows obvious posterior ICH. Per radiology note noted subdural hematoma as well as other abnormalities please seereport below. CT of the head and neck shows no large vessel occlusion CBC without leukocytosis, severe anemia, no thrombocytopenia. No coagulopathy Awaiting chemistries and troponin Upon reevaluation patient is neurologically remained stable, he was controlling his airway. No indication for endotracheal intubation at this time. Repeat vital signs showed blood pressure 136/81 which is at goal given traumatic subdural hematoma. Given concern for ICH emergency measures were placed including Kcentra, labetalol for hypertension and Keppra for seizure prophylaxis. Discussed with nearest trauma center for immediate transfer for neurosurgical evaluation. Family and patient updated. ICH score 1 The patient and/or family, caregivers express understanding. The patient and/orfamily, caregivers agrees with the plan. Shared decision making: I will have a discussion with the patient and or visitors regarding risk/benefits of further testing or admission. They will be made aware of of the risk/benefits inherent in this decision they will be given the opportunity to voice understanding. Total critical care time today provided was at least 60 minutes. This excludes separately billable procedures. Critical care time (if documented) is secondary to the patient having high probability of clinically significant/life threatening deterioration in the patient's condition which required my urgent intervention. Impression: 1. Traumatic ICH 2. Chronic anticoagulation Dispo: Transfer to [facility] for definitive trauma care This note was generated with [employer] dictation software. It may contain incorrectwords, spelling, and punctuation that were not noted in review of the chart prior to signing. Lab Data Labs: Laboratory Results - last 24 hr 12/23/24 08:07 WBC 5.8 RBC 4.42 L Hgb 13.6 Hct 40.9 MCV 92.5 MCH 30.8 MCHC 33.3 RDW Std Deviation 47.2 H RDW Coeff of Chastity 13.8 Plt Count 186 MPV 11.5 Immature Gran % (Auto) 0.300 Neut % (Auto) 68.3 Lymph % (Auto) 15.9 L Falls % (Auto) 12.8 H Eos % (Auto) 2.4 Baso % (Auto) 0.3 Absolute Neuts (auto) 4.0 Absolute Lymphs (auto) 0.93 Nucleated RBC % 0 PT 31.1 H INR 2.9 APTT 36.2 Sodium Cancelled Potassium Cancelled Chloride Cancelled Carbon Dioxide Cancelled Anion Gap Cancelled BUN Cancelled Creatinine Cancelled Estim Creat Clear Calc Cancelled Est GFR (MDRD) Non-Af Cancelled BUN/Creatinine Ratio Cancelled Glucose Cancelled Calcium Cancelled Troponin T High Sens Cancelled Radiography Chest X-Ray - ED: Read by ED Physician Diagnostic Testing: Clinical Impression(s) from Imaging Studies Brain CT 12/23/24 08:03 IMPRESSION: There is a subdural hematoma on the right measuring 0.5 cm in depth in the temporal region. There is hemorrhage extending along the falx and tentorium on the right with a masslike component posteriorly measuring 5.0 by 2.0 cm, axial image 31/48. There is low-density in the deep white matter on the right and left, and in the right occipital and posterior temporal cortex, which may have an acute infarct component. There is midline shift at the anterior aspect, 0.4 cm towards the left. Critical results were discussed with Dr. Yu by Dr. Nichole at the time ofdictation. 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 There is no significant stenosis or occlusion identified in the carotid or vertebral system. There is no significant stenosis or occlusion identified in the intracranial arteries. Reading Location: [facility] Discharge Plan Triage Chief Complaint: Numb/Ting ED Provider: Frankie Yu Dx/Rx/DC Orders Prescriptions: No Action Xarelto 20 mg tablet 20 mg PO QPM Qty: 90 3RF Rx Instructions: must administer with evening meal lisinopril 20 mg tablet 20 mg PO DAILY Qty: 90 3RF metoprolol succinate 50 mg tablet extended release 24 hr 50 mg PO QDAY Qty: 90 3RF Primary Care Provider: Briseida Vergara Referrals: Briseida Vergara MD [Primary Care Provider] - Print Language: Mohawk What to do if you have Problems For any increased pain, shortness of breath, bleeding, nausea or vomiting, chestpain, or any unexpected problems, contact your Primary Care Provider. Call [facility] ([phone]) or report to the closest Emergency Room. Call 911 if necessary. 12/23/24 [id number] <Electronically signed by Frankei Yu DO> Cosigner Signature (if applicable): CC: Dr. Briseida Vergara MD ~ Signed [facility] Work Phone: Evaluation note* Diagnosis Onset Date Resolution Status Urinary tract infection with hematuria acute Urinary tract infection with hematuria acute Urinary tract infection with hematuria acute Essential (primary) hypertension chronic Paroxysmal atrial fibrillation [facility] Work Phone: evaluation note* Diagnosis Onset Date Resolution Status Essential (primary) hypertension chronic Paroxysmal atrial fibrillation [facility] Work Phone: Evaluation note* Diagnosis Onset Date Resolution Status Edema acute Essential (primary) hypertension chronic intermediate frame tender current use of amiodarone chronic Paroxysmal atrial fibrillation [facility] Work Phone: Evaluation note* Diagnosis Onset Date Resolution Status Edema acute Essential (primary) hypertension chronic intermediate frame tender current use of amiodarone chronic Paroxysmal atrial fibrillation chronic Balance problem acute Lower extremity edema acute Lower extremity numbness acu te PAD (peripheral artery disease) [facility] Work Phone: Evaluation note* Diagnosis Onset Date Resolution Status Edema acute Essential (primary) hypertension chronic intermediate frame tender current use of amiodarone chronic Paroxysmal atrial fibrillation chronic Balance problem acute Lower extremity edema acute Lower extremity numbness acu te PAD (peripheral artery disease) acute Balance problem acute Lower extremity edema acute Lower extremity numbness acu te PAD (peripheral artery disease) acute [facility] Work Phone: Evaluation note* Diagnosis Onset Date Resolution Status Balance problem acute Lower extremity edema acute Lower extremity numbness acu te PAD (peripheral artery disease) acute Balance problem acute Lower extremity edema acute Lower extremity numbness acu te PAD (peripheral artery disease) acute Venous insufficiency (chronic) (peripheral) chronic [facility] Work Phone: Evaluation note* Diagnosis Onset Date Resolution Status Balance problem acute Lower extremity edema acute Lower extremity numbness acu te PAD (peripheral artery disease) acute Venous insufficiency (chronic) (peripheral) chronic Venous insufficiency (chronic) (peripheral) chronic [facility] Work Phone: Evaluation note* Diagnosis Onset Date Resolution Status Balance problem acute Lower extremity edema acute Lower extremity numbness acu te PAD (peripheral artery disease) acute Venous insufficiency (chronic) (peripheral) chronic Venous insufficiency (chronic) (peripheral) chronic Venous insufficiency (chronic) (peripheral) chronic [facility] Work Phone: Evaluation note* Diagnosis Onset Date Resolution Status Venous insufficiency (chronic) (peripheral) chronic Venous insufficiency (chronic) (peripheral) chronic Venous insufficiency (chronic) (peripheral) chronic [facility] Work Phone: Evaluation note* Diagnosis SDH (subdural hematoma) (HCC)- Primary Subdural hemorrhage Subdural hematoma (HCC) Subdural hemorrhage Subarachnoid hemorrhage (HCC) Subarachnoid hemorrhage Fall, initial encounter Trauma Injury, other and unspecified, unspecified site Fall Unspecified fall Current use of buttermaker anticoagulation Long-term (current) use of anticoagulants Scalp abrasion Face, neck, and scalp, except eye, abrasion or friction burn, without mention of infection Neuropathy Mononeuritis of unspecified site Left leg weakness Other musculoskeletal symptoms referable to limbs Primary hypertension Unspecified essential hypertension Chronic atrial fibrillation (HCC) Atrial fibrillation Acute left hemiparesis (HCC) Hemiplegia, unspecified, affecting unspecified side SDH (subdural hematoma) (HCC)- Primary Subdural hemorrhage Injury of head, subsequent encounter [facility] Diagnosis SDH (subdural hematoma) (HCC)- Primary Subdural hemorrhage Subdural hematoma (HCC) Subdural hemorrhage Subarachnoid hemorrhage (HCC) Subarachnoid hemorrhage Fall, initial encounter Trauma Injury, other and unspecified, unspecified site Fall Unspecified fall Current use of group home anticoagulation Long-term (current) use of anticoagulants Scalp abrasion Face, neck, and scalp, except eye, abrasion or friction burn, without mention of infection Neuropathy Mononeuritis of unspecified site Left leg weakness Other musculoskeletal symptoms referable to limbs Primary hypertension Unspecified essential hypertension Chronic atrial fibrillation (HCC) Atrial fibrillation Acute left hemiparesis (HCC) Hemiplegia, unspecified, affecting unspecified side SDH (subdural hematoma) (HCC)- Primary Subdural hemorrhage [facility] Diagnosis SDH (subdural hematoma) (HCC)- Primary Subdural hemorrhage Subdural hematoma (HCC) Subdural hemorrhage Subarachnoid hemorrhage (HCC) Subarachnoid hemorrhage Fall, initial encounter Trauma Injury, other and unspecified, unspecified site Fall Unspecified fall Current use of group home anticoagulation Long-term (current) use of anticoagulants Scalp abrasion Face, neck, and scalp, except eye, abrasion or friction burn, without mention of infection Neuropathy Mononeuritis of unspecified site Left leg weakness Other musculoskeletal symptoms referable to limbs Primary hypertension Unspecified essential hypertension Chronic atrial fibrillation (HCC) Atrial fibrillation Acute left hemiparesis (HCC) Hemiplegia, unspecified, affecting unspecified side Injury of head, subsequent encounter SDH (subdural hematoma) (HCC) Subdural hemorrhage documented in this encounter [facility] note* Diagnosis SDH (subdural hematoma) (HCC)- Primary Subdural hemorrhage Subdural hematoma (HCC) Subdural hemorrhage Subarachnoid hemorrhage (HCC) Subarachnoid hemorrhage Fall, initial encounter Trauma Injury, other and unspecified, unspecified site Fall Unspecified fall Current use of group home anticoagulation Long-term (current) use of anticoagulants Scalp abrasion Face, neck, and scalp, except eye, abrasion or friction burn, without mention of infection Neuropathy Mononeuritis of unspecified site Left leg weakness Other musculoskeletal symptoms referable to limbs Primary hypertension Unspecified essential hypertension Chronic atrial fibrillation (HCC) Atrial fibrillation Acute left hemiparesis (HCC) Hemiplegia, unspecified, affecting unspecified side SDH (subdural hematoma) (HCC) Subdural hemorrhage documented in this encounter [facility] note* Diagnosis SDH (subdural hematoma) (HCC)- Primary Subdural hemorrhage Subdural hematoma (HCC) Subdural hemorrhage Subarachnoid hemorrhage (HCC) Subarachnoid hemorrhage Fall, initial encounter Trauma Injury, other and unspecified, unspecified site Fall Unspecified fall Current use of group home anticoagulation Long-term (current) use of anticoagulants Scalp abrasion Face, neck, and scalp, except eye, abrasion or friction burn, without mention of infection Neuropathy Mononeuritis of unspecified site Left leg weakness Other musculoskeletal symptoms referable to limbs Primary hypertension Unspecified essential hypertension Chronic atrial fibrillation (HCC) Atrial fibrillation Acute left hemiparesis (HCC) Hemiplegia, unspecified, affecting unspecified side SDH (subdural hematoma) (HCC)- Primary [facility]dural hemorrhage [facility] Additional Instructions You have been given the first dose of IV antibiotics in the ER. Start taking the oral antibiotics tomorrow. Take the entire course of antibiotics. If your symptoms worsen especially over the next 24 to 40 hours please return to the emergency room as we discussed. Make sure you are drinking plenty of fluids. Take Tylenol as needed for fever. It is not recommended that you take anti-inflammatory such as Aleve or Advil since you are on the Xarelto.[facility] Work Phone: Hospital Discharge instructionsAdditional Instructions 1. He will need to follow up with Mateo Crane NP from [facility] at some point. currently not able to sit in a WC and maintain and upright posture. 2. He has an appt with Dr. Padilla (neurosurgery) scheduled. Will defer restarting Xarelto to Dr. Padilla. 3. He should also follow up with neurology as an OP. 4. He has subluxation/pain of the Left shoulder and was placed in a rotator cuff sling on 01/16/25 to help with this. Subluxation is due to Severe weakness of the left arm........can only really flex his fingers weakly at the time of DC from rehab. 5. He is incontinent of stool and urine. 6. He had a stage I decub of the left heel which has resolved. 7. He is severely depressed. Now up to 22.5 mg of Remeron at HS. Appetite has improved and he rarely refuses a meal now. Has lost 11 lbs form 12/30/24 to 01/14/25. 8. CT scan on 01/15/25 shows the subdural hematoma is decreasing in size and there are no new or enlarging acute intracranial findings. Unfortunately the CT scan shows chronic moderate-sized ischemic infarct within the bilateral parietal occipital watershed areas, left greater than right. There are mild scattered supratentorial white matter hypodensities and a lacunar type infarct within the right basal ganglia. MRI on 12/26/24 at previous hospital did not clearly show any ischemic infarcts. These may have occurred following KCENTRA and withholding anticoagulation due to the bleeding. This helps to explain why he really has not made much progress on rehab. 9. BP has recently been on the low side and Lisinopril was discontinued on . BP at [place] is better and within goal of < 130/80. 10. He had acute cystitis and LLL PNA while on rehab. He had Delirium with Levaquin and it resolved with discontinuation of the drug. 11. Spoke with Dr. Padilla on 01/17/25 and we are going to restart anticoagulation with Xarelto 20 mg daily.......no loading doses due to hx of ICH. He has an appt with Dr. Padilla on 01/28/25 and will have a repeat CT brain that morning. He will need to be transported on a cot because he is unable to maintina an upright posture sitting in a WC.....he slumps forward and to the left. Date of Discharge: 01/17/25[facility] Work Phone: Reason for referral (narrative)No reason for referral information available[facility] Work Phone: Reason for visit Narrative* MRI/CT (Routine) - Closed Specialty Diagnoses / Procedures Referred By Marino t Referred To Contact CT IMAGING Diagnoses Injury of head, subsequent encounter SDH (subdural hematoma) (HCC) Procedures CT BRAIN WO IVCON CT HEAD/BRAIN W/O CONTRAST MATERIAL Pierre Stahl, [employer].TEXTILE ENGINEER [address] [place] [address] Phone: tel: fax: [place] [phone] Referral ID Status Reason Start Date Expiration Date V isits Requested Visits Authorized [id number] Closed Auto-Generate d Referral 01/03/2025 06/25/2025 1 1 [facility] Chief Complaint and Reason for Visit Chief Complaint Urinary tract infect ion Urinary tract infection Urinary tract infection 3 M FU cysto, turp, olympus URINARY OUTLET OBSTRUCTION Reason for Visit Urinary tract infect ion with hematuria Urinary tract infection with hematuria Urinary tract infection with hematuria Essential (primary) hypertension Paroxysmal atrial fibrillation Chief Complaint Urinary tract infect ion Urinary tract infection Urinary tract infection 3 M FU cysto, turp, olympus HEMATURIA Reason for Visit Urinary tract infect ion with hematuria Urinary tract infection with hematuria Urinary tract infection with hematuria Essential (primary) hypertension Paroxysmal atrial fibrillation Chief Complaint 1 Y FU REFERRED SELF xray Peripheral vascular disease, unspecified Reason for Visit Essential (primary) hypertension Paroxysmal atrial fibrillation Chief Complaint xray Peripheral vascular disease, unspecified 6 M FU EORDERS Reason for Visit Edema Essential (primary) hypertension intermediate frame tender current use of amiodarone Paroxysmal atrial fibrillation Chief Complaint xray Peripheral vascular disease, unspecified 6 M FU E[place]ERS AFIB Atrial fibrillation Reason for Visit Edema Essential (primary) hypertension [facility] current use of amiodarone Paroxysmal atrial fibrillation Chief Complaint 6 M FU EORDERS AFIB Atrial fibrillation CONSULT-SWOLLEN FEET/ANKLES R60.0 locolized edema Reason for Visit Edema Essential (primary) hypertension intermediate frame tender current use of amiodarone Paroxysmal atrial fibrillation Balance problem Lower extremity edema Lower extremity numbness PAD (peripheral artery disease) Chief Complaint 6 M FU EORDERS AFIB Atrial fibrillation CONSULT-SWOLLEN FEET/ANKLES R60.0 locolized edema BLE Anesthesia of skin BLE Anesthesia of skin DISCUSS RESULTS/SYMPTOMS LOCALIZED SWELLING MASS AND LUMP Other hereditary and idiopathic neuropathies Reason for Visit Edema Essential (primary) hypertension [facility] current use of amiodarone Paroxysmal atrial fibrillation Balance problem Lower extremity edema Lower extremity numbness PAD (peripheral artery disease) Balance problem Lower extremity edema Lower extremity numbness PAD (peripheral artery disease) Chief Complaint 6 M FU EORDERS AFIB Atrial fibrillation CONSULT-SWOLLEN FEET/ANKLES R60.0 locolized edema BLE Anesthesia of skin BLE Anesthesia of skin DISCUSS RESULTS/SYMPTOMS LOCALIZED SWELLING MASS AND LUMP FNA, RT NECK MASS Other hereditary and idiopathic neuropathies Reason for Visit Edema Essential (primary) hypertension [facility] current use of amiodarone Paroxysmal atrial fibrillation Balance problem Lower extremity edema Lower extremity numbness PAD (peripheral artery disease) Balance problem Lower extremity edema Lower extremity numbness PAD (peripheral artery disease) Chief Complaint AFIB Atrial fibrillation CONSULT-SWOLLEN FEET/ANKLES R60.0 locolized edema BLE Anesthesia of skin BLE Anesthesia of skin DISCUSS RESULTS/SYMPTOMS LOCALIZED SWELLING MASS AND LUMP FNA, RT NECK MASS Other hereditary and idiopathic neuropathies DISCUSS VENOGRAM MALIGNANT MELANOMA OF RIGHT UPPER EYELID Reason for Visit Balance problem Lower extremity edema Lower extremity numbness PAD (peripheral artery disease) Balance problem Lower extremity edema Lower extremity numbness PAD (peripheral artery disease) Venous insufficiency (chronic) (peripheral) Chief Complaint R60.0 locolized cassandra a BLE Anesthesia of skin BLE Anesthesia of skin DISCUSS RESULTS/SYMPTOMS LOCALIZED SWELLING MASS AND LUMP FNA, RT NECK MASS Other hereditary and idiopathic neuropathies DISCUSS VENOGRAM MALIGNANT MELANOMA OF RIGHT UPPER EYELID I73.9 I73.9 Reason for Visit Balance problem Lower extremity edema Lower extremity numbness PAD (peripheral artery disease) Venous insufficiency (chronic) (peripheral) Venous insufficiency (chronic) (peripheral) Chief Complaint DISCUSS RESULTS/SYMP TOMS LOCALIZED SWELLING MASS AND LUMP FNA, RT NECK MASS Other hereditary and idiopathic neuropathies DISCUSS VENOGRAM MALIGNANT MELANOMA OF RIGHT UPPER EYELID I73.9 I73.9 3 W POST-OP uti Reason for Visit Balance problem Lower extremity edema Lower extremity numbness PAD (peripheral artery disease) Venous insufficiency (chronic) (peripheral) Venous insufficiency (chronic) (peripheral) Venous insufficiency (chronic) (peripheral) Chief Complaint LOCALIZED SWELLING M ASS AND LUMP FNA, RT NECK MASS Other hereditary and idiopathic neuropathies DISCUSS VENOGRAM MALIGNANT MELANOMA OF RIGHT UPPER EYELID I73.9 I73.9 3 W POST-OP uti Reason for Visit Venous insufficiency (chronic) (peripheral) Venous insufficiency (chronic) (peripheral) Venous insufficiency (chronic) (peripheral) Chief Complaint Other hereditary and idiopathic neuropathies DISCUSS VENOGRAM MALIGNANT MELANOMA OF RIGHT UPPER EYELID I73.9 I73.9 3 W POST-OP uti Excision, Mass, RIGHT NECK, Reason for Visit Venous insufficiency (chronic) (peripheral) Venous insufficiency (chronic) (peripheral) Venous insufficiency (chronic) (peripheral) Chief Complaint Admit Date CAT SCRATCH ON R ARM November 01, 2024 7:35a m 1 Y FU/MOVED FROM [facility] December 10, 2024 10 :20am Reason for Visit Admit Date Cat scratch of right forearm November 01 7:35am PAD (peripheral artery disease) November 10:20am Essential (primary) hypertension December 102024 10:20am Paroxysmal atrial fibrillation November 10:20am Chief Complaint Admit Date CAT SCRATCH ON R ARM November 01, 2024 7:35a m 1 Y FU/MOVED FROM [facility] December 10, 2024 10 :20am numbness/tingling December 23, 2024 7:15 am Chief Complaint Admit Date CAT SCRATCH ON R ARM November 01, 2024 7:35a m 1 Y FU/MOVED FROM [facility] December 10, 2024 10 :20am numbness/tingling December 23, 2024 7:15 am SUBDURAL HEMATOMA December 30, 2024 6:14p m SUBDURAL HEMATOMA December 31, 2024 12:18 pm SUBDURAL HEMATOMA January 01, 2025 12:03 pm SUBDURAL HEMATOMA January 02, 2025 7:13 am SUBDURAL HEMATOMA January 03, 2025 12:0 5pm SUBDURAL HEMATOMA January 06, 2025 11:4 0am SUBDURAL HEMATOMA January 07, 2025 12:1 0pm SUBDURAL HEMATOMA January 08, 2025 9:47 am SUBDURAL HEMATOMA January 09, 2025 9:57 am SUBDURAL HEMATOMA January 13, 2025 8:34 am SUBDURAL HEMATOMA January 14, 2025 11:4 9am SUBDURAL HEMATOMA January 15, 2025 12:2 5pm SUBDURAL HEMATOMA January 16, 2025 12:2 4pm SUBDURAL HEMATOMA January 16, 2025 2:47 pm Reason for Visit Admit Date Cat scratch of right forearm November 01 7:35am Essential (primary) hypertension December 102024 10:20am PAD (peripheral artery disease) November 10:20am Paroxysmal atrial fibrillation November 10:20am Acute left-sided weakness December 30, 2024 6:14pm 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 December 30, 2024 6:14pm Debility December 30, 2024 6:14p m Dehydration December 30, 2024 6:14p m Heme positive stool December 30, 2024 6:14p m History of melanoma December 30, 2024 6:14p m Hospital-acquired pneumonia December 30 6:14pm Hyponatremia December 30, 2024 6:14p m Intracerebral bleed due to trauma December 302024 6:14pm Ischemic cerebrovascular accident (CVA) December 30, 2024 6:14pm Mild cognitive impairment December 30, 2024 6:14pm Near syncope December 30, 2024 6:14p m Paresthesias December 30, 2024 6:14p m Subluxation of left shoulder joint December 30, 2024 6:14pm Weight loss, non-intentional December 30, 025 6:14pm Ascending aorta dilation December 30, 2024 6:14pm Chronic anticoagulation December 30, 2024 6 :14pm Depression December 30, 2024 6:14p m Essential (primary) hypertension December 6:14pm Fecal incontinence December 30, 2024 6:14p m PAD (peripheral artery disease) December 6:14pm Paroxysmal atrial fibrillation December 30, 2024 6:14pm Peripheral neuropathy December 30, 2024 6:1 4pm Pulmonary nodules December 30, 2024 6:14p m Sleep apnea December 30, 2024 6:14p m Urinary incontinence December 30, 2024 6:14 pm Venous insufficiency (chronic) (peripher al) December 30, 2024 6:14pm Acute cystitis with hematuria December 30, 2024 6:14pm Acute delirium December 30, 2024 6:14p m Decubitus ulcer December 30, 2024 6:14p m Laterocollis December 30, 2024 6:14p m Torticollis, acquired December 30, 2024 6:1 4pm Chief Complaint Admit Date CAT SCRATCH ON R ARM November 01, 2024 7:35a m 1 Y FU/MOVED FROM [facility] December 10, 2024 10 :20am numbness/tingling December 23, 2024 7:15 am SUBDURAL HEMATOMA December 30, 2024 6:14p m SUBDURAL HEMATOMA December 31, 2024 12:18 pm SUBDURAL HEMATOMA January 01, 2025 12:03 pm SUBDURAL HEMATOMA January 02, 2025 7:13 am SUBDURAL HEMATOMA January 03, 2025 12:0 5pm SUBDURAL HEMATOMA January 06, 2025 11:4 0am SUBDURAL HEMATOMA January 07, 2025 12:1 0pm SUBDURAL HEMATOMA January 08, 2025 9:47 am SUBDURAL HEMATOMA January 09, 2025 9:57 am SUBDURAL HEMATOMA January 13, 2025 8:34 am SUBDURAL HEMATOMA January 14, 2025 11:4 9am SUBDURAL HEMATOMA January 15, 2025 12:2 5pm SUBDURAL HEMATOMA January 16, 2025 12:2 4pm SUBDURAL HEMATOMA January 16, 2025 2:47 pm LAB WORK January 20, 2025 4:00 am Admission Exam H&P January 20, 2025 2:29 pm Reason for Visit Admit Date Cat scratch of right forearm November 01 7:35am Essential (primary) hypertension December 102024 10:20am PAD (peripheral artery disease) November 10:20am Paroxysmal atrial fibrillation November 10:20am Acute left-sided weakness December 30, 2024 6:14pm Debility December 30, 2024 6:14p m Dehydration December 30, 2024 6:14p m Heme positive stool December 30, 2024 6:14p m Intracerebral bleed due to trauma December 302024 6:14pm Mild cognitive impairment December 30, 2024 6:14pm Paresthesias December 30, 2024 6:14p m Subluxation of left shoulder joint December 30, 2024 6:14pm Weight loss, non-intentional December 30, 025 6:14pm Ascending aorta dilation December 30, 2024 6:14pm Depression December 30, 2024 6:14p m Fecal incontinence December 30, 2024 6:14p m Pulmonary nodules December 30, 2024 6:14p m Urinary incontinence December 30, 2024 6:14 pm Acute cystitis with hematuria December 30, 2024 6:14pm Acute delirium December 30, 2024 6:14p m 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 December 30, 2024 6:14pm Decubitus ulcer December 30, 2024 6:14p m Hospital-acquired pneumonia December 30 6:14pm Hyponatremia December 30, 2024 6:14p m Laterocollis December 30, 2024 6:14p m Near syncope December 30, 2024 6:14p m Torticollis, acquired December 30, 2024 6:1 4pm Chronic anticoagulation December 30, 2024 6 :14pm Essential (primary) hypertension December 6:14pm History of melanoma December 30, 2024 6:14p m Ischemic cerebrovascular accident (CVA) December 30, 2024 6:14pm PAD (peripheral artery disease) December 6:14pm Paroxysmal atrial fibrillation December 30, 2024 6:14pm Peripheral neuropathy December 30, 2024 6:1 4pm Sleep apnea December 30, 2024 6:14p m Venous insufficiency (chronic) (peripher al) December 30, 2024 6:14pm Family History No Family History Records Found Relationship Condition Age at Onset Recorded Date/T bret mother Myocardial infarction Unknown father Malignant neoplasm of colon Unknown sister Myocardial infarction Unknown Advance Directives No Advanced Directives Records Found Advance Directive Response Recorded Date/ Time Name of Medical Power of Configuration Management Advisor -MOISE September 08, 2021 2:37pm Advance Directives No September 21 8:54am Living Will Yes September 29, 2021 7:14pm Power of Configuration Management Advisor Yes September 29 7:14pm Advance Directive Response Recorded Date/ Time Advance Directives No September 21 8:54am Living Will Yes September 29, 2021 7:14pm Power of Configuration Management Advisor Yes September 29 7:14pm Advance Directive Response Recorded Date/ Time Advance Directives No September 21 7:54am Living Will Yes September 29, 2021 6:14pm Power of Configuration Management Advisor Yes September 29 6:14pm Advance Directive Response Recorded Date/ Time Advance Directives on File Yes Decem 2022 8:52am Name of Medical Power of Configuration Management Advisor Moise Yañez June 22, 2023 8:52am Advance Directives Yes May 8:52am Living Will Yes June 22 8:52am Power of Configuration Management Advisor Yes June 22, 2023 8:52am Advance Directive Response Recorded Date/ Time Advance Directives on File Yes Decem 2022 8:52am Name of Medical Power of Configuration Management Advisor Moise Yañez June 22, 2023 8:52am Name of Medical Power of Configuration Management Advisor Latoya sanchez July 24, 2023 9:57pm Advance Directives Yes May 8:52am Living Will Yes July 24 9:57pm Power of Configuration Management Advisor Yes July 24, 2023 9:57pm Advance Directive Response Recorded Date/ Time Advance Directives on File Yes Decem 2022 8:52am Name of Medical Power of Configuration Management Advisor Moise Yañez June 22, 2023 8:52am Name of Medical Power of Configuration Management Advisor - LATOYA August 15, 2023 10:41am Advance Directives Yes May 8:52am Living Will Yes August 15 10:41am Power of Configuration Management Advisor Yes August 15, 2023 10:41am Name of Medical Power of Configuration Management Advisor Latoya sanchez July 24, 2023 9:57pm Advance Directive Response Recorded Date/ Time Living Will Yes August 15 11:41am Do you have a Healthcare Power of Configuration Management Advisor? Yes August 15, 2023 11:41am Advance Directives Yes May 9:52am Advance Directive Response Recorded Date/ Time Living Will Yes August 15 11:41am Do you have a Healthcare Power of Configuration Management Advisor? Yes August 15, 2023 11:41am Do you have a Healthcare Power of Configuration Management Advisor? No December 23, 2024 7:22am Advance Directives Yes May 9:52am Date Activated Date Inactivated Comments 12/23/2024 1:07 PM 12/30/2024 8:20 PM Question Answer Comments Full Code Order Discussed With: Patient Date Activated Date Inactivated Comments 12/23/2024 1:07 PM 12/30/2024 8:20 PM Question Answer Comments Full Code Order Discussed With: Patient Advance Directive Response Recorded Date/ Time Living Will Yes August 15 11:41am Do you have a Healthcare Pow er of Configuration Management Advisor? Yes August 15, 2023 11:41am Do you have a Healthcare Pow er of Configuration Management Advisor? No December 23, 2024 7:22am Do you have a Healthcare Pow er of Configuration Management Advisor? Yes January 01, 2025 5:20pm Name of Medical Power of Configuration Management Advisor Latoya B[address] rd, January 01, 2025 5:20pm Advance Directives Yes May 9:52am Summary Purpose Additional Source Comments Goals (unrecognized section and content) Goals may be documented in a n alternate sectionGoals may be documented in an alternate sectionGoals may be documented in an alternate sectionGoals may be documented in an alternate sectionGoals may be documented in an alternate sectionGoals may be documented in an alternate sectionGoals may be documented in an alternate sectionGoals may be documented in an alternate sectionGoals may be documented in an alternate sectionGoals may be documented in an alternate sectionGoals may be documented in an alternate sectionGoals may be documented in an alternate sectionGoals may be documented in an alternate sectionGoals may be documented in an alternate section Care Teams (unrecognized sec tion and content) Team Status: Active Member Role Status Dates Dr. Devyn Montalvo DO Family Provider Active Dr. Devyn Montalvo DO Primary Care Provider Active Team Status: Inactive Member Role Status Dates Dr. Devyn Montalvo DO Primary Care Provider, Referrin g Provider Active Dr. Jalen Clay MD Attending Provider Active Team Status: Active Member Role Status Dates Dr. Devyn Montalvo DO Primary Care Provider Active Dr. Ankit Alvarenga MD Attending Provider Active Team Status: Inactive Member Role Status Dates Dr. Devyn Montalvo DO Primary Care Provider Active Dr. Jalen Clay MD Attending Provider Active Team Status: Active Member Role Status Dates Dr. Devyn Montalvo DO Primary Care Provider Active Self Referred Attending Provider Active Team Status: Inactive Member Role Status Dates Dr. Devyn Montalvo DO Primary Care Provider Active Dr. Judy Bernal DPM Attending Provider, Referring Pr ovider Active Team Status: Active Member Role Status Dates Dr. Devyn Montalvo DO Family Provider Active Dr. Zaki Burger DO Primary Care Provider Active Team Status: Inactive Member Role Status Dates Dr. Devyn Montalvo DO Primary Care Provider, Referrin g Provider Active NEENA Rae Attending Provider Active Team Status: Active Member Role Status Dates Dr. Devyn Montalvo DO Primary Care Provider Active Dr. Ankit Alvarenga MD Attending Provider Active Dr. Judy Bernal DPM Referring Provider Active Team Status: Inactive Member Role Status Dates Dr. Devyn Montalvo DO Primary Care Provider Active Kimberly CHAUDHARY PA Attending Provider, Referr ing Provider Active Team Status: Active Member Role Status Dates Kimberly CHAUDHARY PA Referring Provider, Other Provider Active Dr. Zaki Burger , DO Primary Care Provider Active Dr. Matt Casas , DO Attending Provider Active Team Status: Inactive Member Role Status Dates Kimberly CHAUDHARY, PA Attending Provider, Referr ing Provider Active Dr. Zaki Burger DO Primary Care Provider Active Team Status: Inactive Member Role Status Dates Dr. Zaki Burger DO Primary Care Provider, Referr ing Provider Active NEENA Rivera Attending Provider Active Team Status: Active Member Role Status Dates Dr. Zaki Burger DO Primary Care Provider Active Dr. Ankit Alvarenga MD Attending Provider Active Team Status: Inactive Member Role Status Dates Dr. Zaki Burger DO Primary Care Provider Active NEENA Rivera Attending Provider, Referring Provid er Active Team Status: Active Member Role Status Dates Dr. Devyn Montalvo DO Family Provider Active Dr. Briseida Vergara MD Primary Care Provider Active Team Status: Active Member Role Status Dates Dr. Zaki Burger DO Primary Care Provider Active Dr. Ankit Alvarenga MD Attending Provider Active NEENA Rivera Referring Provider Active Team Status: Active Member Role Status Dates NEENA Rivera Referring Provider, Other Provider A ctive Dr. Briseida Vergara MD Primary Care Provider Active Dr. Amandeep Huang MD Attending Provider Active Team Status: Inactive Member Role Status Dates Dr. Briseida Vergara MD Primary Care Provider, Referrin g Provider Active NEENA Rivera Attending Provider Active Team Status: Active Member Role Status Dates Dr. Briseida Vergara MD Primary Care Provider Active Dr. Adal Silva DPM Attending Provider, Referring Provider Active Team Status: Inactive Member Role Status Dates Dr. Briseida Vergara MD Primary Care Provider Active Dr. Spenser Estrada MD Attending Provider, Referring Pr ovider Active Team Status: Inactive Member Role Status Dates NEENA Rivera Attending Provider, Referring Provid er Active Dr. Briseida Vergara MD Primary Care Provider Active Team Status: Inactive Member Role Status Dates Dr. Briseida Vergara MD Primary Care Prov ider, Attending Provider, Referring Provider Active Team Status: Inactive Member Role Status Dates Dr. Briseida Vergara MD Primary Care Provider Active Dr. Adal Silva DPM Attending Provider, Referring Provider Active Team Status: Inactive Member Role Status Dates Dr. Briseida Vergara MD Primary Care Provider, Referrin g Provider Active Dr. Ankit Alvarenga MD Attending Provider Active Team Status: Active Member Role Status Dates Dr. Briseida Vergara MD Primary Care Provider Active Dr. Ankit Alvarenga MD Referring Provider, Other Provide r Active NEENA Rivera Attending Provider Active Team Status: Inactive Member Role Status Dates Dr. Briseida Vergara MD Primary Care Provider Active Dr. Ankit Alvarenga MD Attending Provider, Referring Pro vider Active Team Status: Active Member Role Status Dates Dr. Briseida Vergara MD Primary Care Provider Active Dr. Ankit Alvarenga MD Attending Provider, Referring Provider, Other Provider Active NEENA Rivera Active Team Status: Inactive Member Role Status Dates Dr. Briseida Vergara MD Primary Care Provider Active Dr. Claudette Fernandez DO Emergency Provider Active Team Status: Inactive Member Role Status Dates Dr. Briseida Vergara MD Primary Care Provider Active Nathalie Degroot NP-C Attending Provider, Referring Prov ider Active Team Status: Inactive Member Role Status Dates Dr. Briseida Vergara MD Primary Care Provider Active Dr. Claudette Fernandez DO Attending Provider, Emergency P rovider Active Team Status: Inactive Member Role Status Dates Dr. Briseida Vergara MD Primary Care Provider Active Start: November 01, 2024 End: November 01, 2024 Dr. Briseida Vergara MD Referring Provider Active Start: November 01, 2024 End: November 01, 2024 NEENA Logan Attending Provider Active Sta rt: November 01, 2024 End: November 01, 2024 Team Status: Inactive Member Role Status Dates Dr. Briseida Vergara MD Primary Care Provider Active Start: December 10, 2024 End: December 10, 2024 Dr. Briseida Vergara MD Referring Provider Active Start: December 10, 2024 End: December 10, 2024 Mateo Crane NP, ETL LEAD-C Attending Provider Active S tart: December 10, 2024 End: December 10, 2024 Team Status: Active Member Role/Relationship Status Dates Dr. Briseida Vergara MD Primary Care Provider Active Team Status: Inactive Member Role/Relationship Status Dates Dr. Briseida Vergara MD Primary Care Provider Active Start: November 01, 2024 End: November 01, 2024 Dr. Briseida Vergara MD Referring Provider Active Start: November 01, 2024 End: November 01, 2024 Lamin CHAUDHARY, NEENA Attending Provider Active Sta rt: November 01, 2024 End: November 01, 2024 Team Status: Inactive Member Role/Relationship Status Dates Dr. Briseida Vergara MD Primary Care Provider Active Start: December 10, 2024 End: December 10, 2024 Dr. Briseida Vergara MD Referring Provider Active Start: December 10, 2024 End: December 10, 2024 Mateo Crane ETL LEAD, ETL LEAD-C Attending Provider Active S tart: December 10, 2024 End: December 10, 2024 Team Status: Inactive Member Role/Relationship Status Dates Dr. Briseida Vergara MD Primary Care Provider Active Start: December 23, 2024 End: December 23, 2024 Dr. Frankie Yu DO Emergency Provider Active Start: December 23, 2024 End: December 23, 2024 Manager Of Disaster Recovery Relationship Specialty Start Date End Date Briseida Vergara MD [address] [address] PCP - General Family Medicine 12/23/24 Manager Of Disaster Recovery Relationship Specialty Start Date End Date Briseida Vergara MD [address] [place] [address] PCP - General Family Medicine 12/23/24 Team Status: Inactive Member Role/Relationship Status Dates Dr. Briseida Vergara MD Primary Care Provider Active Start: December 23, 2024 End: December 23, 2024 Dr. Frankie Yu DO Attending Provider Active Start: December 23, 2024 End: December 23, 2024 Dr. Frankie Yu DO Emergency Provider Active Start: December 23, 2024 End: December 23, 2024 Team Status: Inactive Member Role/Relationship Status Dates Dr. Briseida Vergara MD Primary Care Provider Active Start: December 30, 2024 End: January 17, 2025 Dr. Alina Sementi , DO Admit Provider Active Start: December 30, 2024 End: January 17, 2025 Dr. Savanna Kelly , DO Attending Provider Act jaden Start: December 30, 2024 End: January 17, 2025 Dr. Nohelia Aleman MD Other Provider Active Star t: December 30, 2024 End: January 17, 2025 Team Status: Active Member Role/Relationship Status Dates Dr. Brisedia Vergara MD Primary Care Provider Active Start: December 31, 2024 Dr. Savanna Kelly , DO Admit Provider Active Start: December 31, 2024 Dr. Savanna Kelly DO Attending Provider Act jaden Start: December 31, 2024 Dr. Savanna Kelly DO Other Provider Active Start: December 31, 2024 Team Status: Active Member Role/Relationship Status Dates Dr. Briseida Vergara MD Primary Care Provider Active Start: January 01, 2025 Dr. Savanna Kelly DO Admit Provider Active Start: January 01, 2025 Dr. Savanna Kelly , DO Attending Provider Act jaden Start: January 01, 2025 Dr. Savanna Kelly DO Other Provider Active Start: January 01, 2025 Team Status: Active Member Role/Relationship Status Dates Dr. Briseida Vergara MD Primary Care Provider Active Start: January 02, 2025 Dr. Savanna Kelly DO Admit Provider Active Start: January 02, 2025 Dr. Savanna Kelly DO Attending Provider Act jaden Start: January 02, 2025 Dr. Savanna Kelly , Other Provider Active Start: January 02, 2025 Team Status: Active Member Role/Relationship Status Dates Dr. Briseida Vergara MD Primary Care Provider Active Start: January 03, 2025 Dr. Savanna Kelly DO Admit Provider Active Start: January 03, 2025 Dr. Savanna Kelly DO Attending Provider Act jaden Start: January 03, 2025 Dr. Savanna Kelly DO Other Provider Active Start: January 03, 2025 Team Status: Active Member Role/Relationship Status Dates Dr. Briseida Vergara MD Primary Care Provider Active Start: January 06, 2025 Dr. Alina Sementi , DO Admit Provider Active Start: January 06, 2025 Dr. Savanna Kelly , DO Attending Provider Act jaden Start: January 06, 2025 Dr. Savanna Kelly , DO Other Provider Active Start: January 06, 2025 Team Status: Active Member Role/Relationship Status Dates Dr. Briseida Vergara MD Primary Care Provider Active Start: January 07, 2025 Dr. Savanna Kelly , DO Admit Provider Active Start: January 07, 2025 Dr. Savanna Kelly , DO Attending Provider Act jaden Start: January 07, 2025 Dr. Savanna Kelly , DO Other Provider Active Start: January 07, 2025 Team Status: Active Member Role/Relationship Status Dates Dr. Briseida Vergara MD Primary Care Provider Active Start: January 08, 2025 Dr. Savanna Kelly , DO Admit Provider Active Start: January 08, 2025 Dr. Savanna Kelly , DO Attending Provider Act jaden Start: January 08, 2025 Dr. Savanna Kelly , Other Provider Active Start: January 08, 2025 Team Status: Active Member Role/Relationship Status Dates Dr. Briseida Vergara MD Primary Care Provider Active Start: January 09, 2025 Dr. Savanna Kelly , Admit Provider Active Start: January 09, 2025 Dr. Savanna Kelly , DO Attending Provider Act jaden Start: January 09, 2025 Dr. Savanna Kelly , DO Other Provider Active Start: January 09, 2025 Dr. Nohelia Aleman MD Other Provider Active Star t: January 09, 2025 Team Status: Active Member Role/Relationship Status Dates Dr. Briseida Vergara MD Primary Care Provider Active Start: January 13, 2025 Dr. Savanna Kelly , Admit Provider Active Start: January 13, 2025 Dr. Savanna Kelly , DO Attending Provider Act jaden Start: January 13, 2025 Dr. Savanna Kelly DO Other Provider Active Start: January 13, 2025 Dr. Nohelia Aleman MD Other Provider Active Star t: January 13, 2025 Team Status: Active Member Role/Relationship Status Dates Dr. Briseida Vergara MD Primary Care Provider Active Start: January 14, 2025 Dr. Savanna Kelly DO Admit Provider Active Start: January 14, 2025 Dr. Savanna Kelly DO Attending Provider Act jaden Start: January 14, 2025 Dr. Savanna Kelly DO Other Provider Active Start: January 14, 2025 Dr. Nohelia Aleman MD Other Provider Active Star t: January 14, 2025 Team Status: Active Member Role/Relationship Status Dates Dr. Briseida Vergara MD Primary Care Provider Active Start: January 15, 2025 Dr. Savanna Kelly DO Admit Provider Active Start: January 15, 2025 Dr. Savanna Kelly DO Attending Provider Act jaden Start: January 15, 2025 Dr. Savanna Kelly DO Other Provider Active Start: January 15, 2025 Dr. Nohelia Aleman MD Other Provider Active Star t: January 15, 2025 Team Status: Active Member Role/Relationship Status Dates Dr. Briseida Vergara MD Primary Care Provider Active Start: January 16, 2025 Dr. Savanna Kelly DO Admit Provider Active Start: January 16, 2025 Dr. Savanna Kelly DO Attending Provider Act jaden Start: January 16, 2025 Dr. Savanna Kelly DO Other Provider Active Start: January 16, 2025 Dr. Nohelia Aleman MD Other Provider Active Star t: January 16, 2025 Team Status: Active Member Role/Relationship Status Dates Dr. Briseida Vergara MD Primary Care Provider Active Start: January 16, 2025 Dr. Savanna Kelly DO Admit Provider Active Start: January 16, 2025 Dr. Savanna Kelly DO Other Provider Active Start: January 16, 2025 Dr. Nohelia Aleman MD Other Provider Active Star t: January 16, 2025 CHUNG RamirezC Attending Provider Act jaden Start: January 16, 2025 Manager Of Disaster Recovery Relationship Specialty Start Date End Date Briseida Vergara MD [address] [place] [address] PCP - General Family Medicine 12/23/24 Manager Of Disaster Recovery Relationship Specialty Start Date End Date Briseida Vergara MD [address] [place] [address] PCP - General Family Medicine 12/23/24 Manager Of Disaster Recovery Relationship Specialty Start Date End Date Briseida Vergara MD [address] [place] [address] PCP - General Family Medicine 12/23/24 Manager Of Disaster Recovery Relationship Specialty Start Date End Date Briseida Vergara MD [address] [place] [address] PCP - General Family Medicine 12/23/24 Manager Of Disaster Recovery Relationship Specialty Start Date End Date Briseida Vergara MD [address] [place] [address] PCP - General Family Medicine 12/23/24 Team Status: Active Member Role/Relationship Status Dates Dr. Briseida Vergara MD Primary Care Provider Active Start: January 20, 2025 Gege ALVARENGA MD Attending Provider Active Start: January 20, 2025 Gege ALVARENGA MD Referring Provider Active Start: January 20, 2025 Team Status: Inactive Member Role/Relationship Status Dates Dr. Briseida Vergara MD Primary Care Provider Active Start: January 20, 2025 End: January 20, 2025 Ashley Murray ETL LEAD, ETL LEAD-C Attending Provider Active Start: January 20, 2025 End: January 20, 2025 Team Status: Active Member Role/Relationship Status Dates Dr. Briseida Vergara MD Primary Care Provider Active Start: January 27, 2025 Gege ALVARENGA MD Attending Provider Active Start: January 27, 2025 Team Status: Active Member Role/Relationship Status Dates Dr. Briseida Vergara MD Primary Care Provider Active Start: January 27, 2025 Gege ALVARENGA MD Attending Provider Active Start: January 27, 2025 Team Status: Active Member Role/Relationship Status Dates Dr. Briseida Vergara MD Primary Care Provider Active Start: February 03, 2025 Gege ALVARENGA MD Attending Provider Active Start: February 03, 2025 Source Comments (unrecognize d section and content) In the event this informatio n is protected by the Federal Confidentiality of Alcohol and Drug Abuse Patient Records regulations: The Federal rules restrict any use of the information to criminally investigate or prosecute any alcohol or drug abuse patient.[facility] the event this information is protected by the Federal Confidentiality of Alcohol and Drug Abuse Patient Records regulations: The Federal rules restrict any use of the information to criminally investigate or prosecute any alcohol or drug abuse patient.[facility] the event this information is protected by the Federal Confidentiality of Alcohol and Drug Abuse Patient Records regulations: The Federal rules restrict any use of the information to criminally investigate or prosecute any alcohol or drug abuse patient.[facility] CenterIn the event this information is protected by the Federal Confidentiality of Alcohol and Drug Abuse Patient Records regulations: The Federal rules restrict any use of the information to criminally investigate or prosecute any alcohol or drug abuse patient.[facility] CenterIn the event this information is protected by the Federal Confidentiality of Alcohol and Drug Abuse Patient Records regulations: The Federal rules restrict any use of the information to criminally investigate or prosecute any alcohol or drug abuse patient.[facility] CenterIn the event this information is protected by the Federal Confidentiality of Alcohol and Drug Abuse Patient Records regulations: The Federal rules restrict any use of the information to criminally investigate or prosecute any alcohol or drug abuse patient.[facility] CenterIn the event this information is protected by the Federal Confidentiality of Alcohol and Drug Abuse Patient Records regulations: The Federal rules restrict any use of the information to criminally investigate or prosecute any alcohol or drug abuse patient.[facility] CenterIn the event this information is protected by the Federal Confidentiality of Alcohol and Drug Abuse Patient Records regulations: The Federal rules restrict any use of the information to criminally investigate or prosecute any alcohol or drug abuse patient.[facility] CenterIn the event this information is protected by the Federal Confidentiality of Alcohol and Drug Abuse Patient Records regulations: The Federal rules restrict any use of the information to criminally investigate or prosecute any alcohol or drug abuse patient.[facility] CenterIn the event this information is protected by the Federal Confidentiality of Alcohol and Drug Abuse Patient Records regulations: The Federal rules restrict any use of the information to criminally investigate or prosecute any alcohol or drug abuse patient.[facility] Reason for Visit (unrecogniz ed section and content) Reason Comments Appointment Reason Comments Patient Update Reason Comments Established Patient Reason Comments Returning Patient's Call Reason Comments Radiology CT Specialty Diagnoses / Procedures Referred By Contac t Referred To Contact CT IMAGING Diagnoses SDH (subdural hematoma) (HCC) Procedures CT BRAIN WO IVCON CT HEAD/BRAIN W/O CONTRAST MATERIAL Tatiana Santos, PEDRO.TEXTILE ENGINEER [address] [address] Phone: tel: fax: [place] [phone] Referral ID Status Reason Start Date Expiration Date V isits Requested Visits Authorized [id number] Closed Auto-Generate d Referral 01/22/2025 06/25/2025 1 1 Reason Comments Established Patient Follow Up (unrecognized sect ion and content) No Status Records FoundNo Status Records FoundNo Status Records Found INFORMATION SOURCE (unrecogn ized section and content) DATE CREATED AUTHOR 02/05/2025 [facility] DATE CREATED AUTHOR AUTHOR'S ORGANIZ ATION 02/09/2025 [facility] DATE CREATED AUTHOR AUTHOR'S ORGANIZ ATION 02/12/2025 [facility] FOR RECORDS PERTAINING TO PATIENTS WHO ARE OR HAVE BEEN ENROLLED IN A CHEMICAL DEPENDENCY/SUBSTANCEABUSE PROGRAM, SOME INFORMATION MAY BE OMITTED. This clinical summary was aggregated from multiple sources. Caution should be exercised in using it in the provision of clinical care. This summary normalizes information from multiple sources, and as a consequence, information in this document may materially change the coding, format and clinical context of patient data. In addition, data may be omitted in some cases. CLINICAL DECISIONS SHOULD BE BASED ON THE PRIMARY CLINICAL RECORDS. [employer] [facility]. provides no warranty or guarantee of the accuracy or completeness of information in this document.
[2025-02-17 08:34] LABS: Hematocrit 37.4 % (40-54); Hemoglobin 12.0 g/dL (13.0-16.5); Immature Granulocytes Count 0.020 X10^3/uL (0.0-0.0); Mean Corp Hgb Conc 32.1 g/dL (32-36); Mean Corpuscular Volume 96.4 fL (80-94); Mean Platelet Vol. 12.0 fl (6.2-12.0); NRBC Flagged by Analyzer 0 % (0-5); Platelet Count 183 K/mm3 (150-450); RBC Distribution Width CV 15.2 % (11.6-14.6); RBC Distribution Width SD 54.2 fl (35.1-43.9); Red Blood Count 3.88 M/mm3 (4.6-6.2); White Blood Count 5.3 K/mm3 (4.4-11.0)
[2025-02-17 09:31] LABS: Anion Gap 9 (5-15); BUN 10 mg/dL (4-19); BUN/Creat Ratio 15.0 RATIO (10-20); Calcium,Total 8.9 mg/dL (7.6-11.0); Carbon Dioxide 24.2 mmol/L (21.0-32.0); Chloride 108 mmol/L (98-108); Glucose 83 mg/dL (70-99); Potassium 3.7 mmol/L (3.3-5.1)
== END ==
LOC: OLS.WHLTCC 05:00
PROVIDERS: PCP Family Medicine; Visit Provider Internal Medicine
DX: E87.1 Hypo-osmolality and hyponatremia (principal); N39.0 Urinary tract infection, site not specified; I69.154 Hemiplegia and hemiparesis following nontraumatic intracerebral hemorrhage affecting left non-dominant side
CPT/HCPCS: 36415; 80048; 85025

== ENCOUNTER → 2025-04-21 | Outpatient (CLI) | payer MEDICARE, BC, SELFPAY ==
[2025-04-21 10:21] LABS: Hematocrit 42.4 % (40-54); Hemoglobin 13.9 g/dL (13.0-16.5); Immature Granulocytes Count 0.000 X10^3/uL (0.0-0.0); Mean Corp Hgb Conc 32.8 g/dL (32-36); Mean Corpuscular Volume 97.7 fL (80-94); Mean Platelet Vol. 11.5 fl (6.2-12.0); NRBC Flagged by Analyzer 0 % (0-5); Platelet Count 224 K/mm3 (150-450); RBC Distribution Width CV 12.9 % (11.6-14.6); RBC Distribution Width SD 46.0 fl (35.1-43.9); Red Blood Count 4.34 M/mm3 (4.6-6.2); White Blood Count 5.6 K/mm3 (4.4-11.0)
[2025-04-21 10:40] LABS: AST(SGOT) 16 U/L (<=37); Alanine Aminotransfer ALT/SGPT 12 U/L (<=46); Albumin, Serum 3.9 g/dL (3.4-4.8); Alkaline Phosphatase 84 U/L (40-129); Anion Gap 10 (5-15); BUN 14 mg/dL (4-19); BUN/Creat Ratio 17.3 RATIO (10-20); Calcium,Total 9.8 mg/dL (7.6-11.0); Carbon Dioxide 25.9 mmol/L (21.0-32.0); Chloride 106 mmol/L (98-108); Cholesterol 196 mg/dL (<=200); Globulin 2.9 g/dL (2.2-4.2); Glucose 92 mg/dL (70-99); Low Density Lipoprotein Calc. 118 mg/dL; Potassium 4.3 mmol/L (3.3-5.1); Triglycerides 93 mg/dL; Very Low Density Lipoprotein 19 mg/dL (5-40); cholesterol:hdl ratio screen 3.20
== END | disposition home or self-care (01) ==
LOC: MTLAB 08:52
PROVIDERS: PCP Family Medicine; Referring Provider Family Medicine; Visit Provider Family Medicine
DX: Z00.00 Encounter for general adult medical examination without abnormal findings (principal); I48.0 Paroxysmal atrial fibrillation; I10 Essential (primary) hypertension
CPT/HCPCS: 36415; 80053; 80061; 85025